=== PATIENT | male | born 1945 | race Caucasian/White ===

== ENCOUNTER 2019-07-15 03:11 | Emergency (ER) | payer MEDICARE ==
[2019-07-15] MEDS ORDERED: HYDROCORTISONE 1% CREAM 28 GM TUBE TOP STA (03:44)
--- NOTE | 2019-07-15 03:48 | ED Physician Documentation ---
PD HPI GI BLEED - Stated complaint Stated Complaint: RECTAL BLEEDING - Chief complaint Chief Complaint: Abd Pain - History obtained from History obtained from: Patient - History of Present Illness Timing - onset: Enter time (1400), Yesterday Timing - duration: Days (1) Timing - details: Gradual onset, Still present Associated symptoms: BRBPR Contributing factors: Bad food (ate a half bag of cheetos) Improved by: Laying still Worsened by: Other (wiping) Similar symptoms before: Diagnosis (hemorroids) Recently seen: Not recently seen - Additional information Additional information: Previously well 74-year-old male developed acute painless rectal bleeding without urge to defecate yesterday afternoon. He felt a cold wetness in his underwear and when he investigated he found he had a lot of blood in his underwear. He estimates he may have lost altogether since the beginning of this about 3 shot glasses of blood. He has had a hemorrhoid operation previously and has had problems with his hemorrhoids since childhood. He has residual tags from a hemorrhoid operation both internal and external hemorrhoids. He relates that he ate a half a bag of Cheetos and subsequently had a very hard stool 2 days ago. He did not have bleeding at that time. He recalls today that he had a bowel movement that did not have blood on it and when he went to wipe he had blood. Review of Systems Constitutional: denies: Fever Eyes: denies: Decreased vision Ears: denies: Ear pain Nose: denies: Congestion Throat: denies: Sore throat Cardiac: denies: Chest pain / pressure, Palpitations Respiratory: denies: Dyspnea, Cough GI: reports: Other (BRBPR). denies: Abdominal Pain, Nausea, Vomiting, Bloody / black stool : denies: Dysuria Skin: denies: Rash Musculoskeletal: denies: Neck pain, Back pain, Extremity pain Neurologic: denies: Generalized weakness, Focal weakness, Numbness PD PAST MEDICAL HISTORY - Present Medications Home Medications: Ambulatory Orders Medication Instructions Recorded Confirmed No Known Home Medications 07/15/19 07/15/19 - Allergies Allergies/Adverse Reactions: Allergies Allergy/AdvReac Type Severity Reaction Status Date / Time No Known Drug Allergies Allergy Verified 07/15/19 03:20 PD ED PE NORMAL - Vitals Vital signs reviewed: Yes (hypertensive mild ) - General General: Alert and oriented X 3, No acute distress, Well developed/nourished - HEENT HEENT: Atraumatic, PERRL, EOMI - Respiratory Respiratory: No respiratory distress - Rectal Rectal: Other (There are external hemmoroidal tags and there are 2 that have abrasion with recent bleeding. The internal hemorrhoids are engorged, non tender and ther is blood on the glove as well. ) - Derm Derm: Normal color, Warm and dry, No rash - Extremities Extremities: No deformity, No edema, No calf tenderness / cord - Neuro Neuro: Alert and oriented X 3, safety and skill based pay manager 2-12 intact, No motor deficit, No sensory deficit, Normal speech Eye Opening: Spontaneous Motor: Obeys Commands Verbal: Oriented GCS Score: 15 - Psych Psych: Normal mood, Normal affect Results - Vitals Vitals: Vital Signs - 24 hr 07/15/19 03:15 Temperature 36.4 C L Heart Rate 84 Respiratory 16 Rate Blood Pressure 144/78 H O2 Saturation 100 Oxygen O2 Source Room air PD MEDICAL DECISION MAKING - ED course Complexity details: reviewed old records, considered differential, d/w patient ED course: 74-year-old male with a history of hemorrhoids has painless rectal bleeding today and on examination it seems obvious that the source of bleeding is the hemorrhoids. He has abrasion to the external hemorrhoidal tags and engorged internal hemorrhoids with blood on the glove. He is administered hydrocortisone cream 1%. I discussed with the patient maintenance of hemorrhoid with reduction with cortisone. Departure - Departure Disposition: 01 Home, Self Care Clinical Impression: Bleeding hemorrhoids Condition: Stable Instructions: Hydrocortisone suppositories, ED Hemorrhoids Follow-Up: Jose David Nobles MD [Primary Care Provider] -
[2019-07-15 04:13] VITALS: BP 129/66
== END 2019-07-15 04:15 | disposition home or self-care (01) ==
LOC: ED 03:11
DX: K64.8 Other hemorrhoids (principal); K64.4 Residual hemorrhoidal skin tags
CPT/HCPCS: 99282; 99283; A9270

== ENCOUNTER 2021-04-21 16:33 | Emergency (ER) | payer MEDICARE ==
[2021-04-21 16:56] LABS: BASOPHILS % (AUTO) 0.2 %; EOSINOPHILS % (AUTO) 0.7 %; HCT - HEMATOCRIT 41.8 % (42.0-52.0); HGB - HEMOGLOBIN 14.9 g/dL (14.0-18.0); LYMPHOCYTES # (AUTO) 0.6 10^3/uL (1.5-3.5); LYMPHOCYTES % (AUTO) 11.4 %; MEAN CORPUSCULAR HEMOGLOBIN 34.8 pg (27.0-31.0); MEAN CORPUSCULAR HGB CONC 35.6 g/dL (32.0-36.0); MEAN CORPUSCULAR VOLUME 97.7 fL (80.0-94.0); MEAN PLATELET VOLUME 9.5 fL (7.4-11.4); MONOCYTES # (AUTO) 0.3 10^3/uL (0.0-1.0); MONOCYTES % (AUTO) 6.2 %; NEUTROPHILS # (AUTO) 4.4 10^3/uL (1.5-6.6); NEUTROPHILS % (AUTO) 81.3 %; PLT - PLATELET COUNT 185 10^3/uL (130-450); RED BLOOD COUNT 4.28 10^6/uL (4.70-6.10); RED CELL DISTRIBUTION WIDTH 12.6 % (12.0-15.0); WHITE BLOOD COUNT 5.5 x10^3/uL (4.8-10.8)
[2021-04-21 17:10] LABS: ALBUMIN 3.8 g/dL (3.2-5.5); BILIRUBIN,TOTAL 1.1 mg/dL (0.2-1.0); CALCIUM 9.1 mg/dL (8.5-10.3); POTASSIUM 3.5 mmol/L (3.5-5.0); TOTAL PROTEIN 7.6 g/dL (6.7-8.2)
--- OUTSIDE RECORDS SUMMARY | 2021-04-21 17:12 | EXTERNAL MEDICAL SUMMARY RPT | Continuity of Care Document ---
:1945 Demographics Phone Unavailable Preferred Language Unknown Marital Status Unknown Spiritism Affiliation Unknown Race Unknown Ethnic Group Unknown Author Organization [facility] Address [address] [phone] Phone Allergies Encounters Medications Problems Results
[2021-04-21 17:36] LABS: BILIRUBIN,URINE NEGATIVE (NEGATIVE); GLUCOSE, URINE (UA) NEGATIVE (NEGATIVE); KETONES,URINE (UA) NEGATIVE (NEGATIVE); LEUKOCYTE ESTERASE, URINE NEGATIVE (NEGATIVE); NITRITE,URINE NEGATIVE (NEGATIVE); OCCULT BLOOD,URINE TRACE-INTA (NEGATIVE); PH,URINE 5.5 PH (5.0-7.5); PROTEIN,URINE NEGATIVE (NEGATIVE); UROBILINOGEN,URINE 0.2 (NORMAL) E.U./dL (NORMAL)
[2021-04-21 17:37] LABS: CLARITY,URINE CLEAR (CLEAR)
[2021-04-21] MEDS ORDERED: IOVERSOL 320 100 ML VIAL IVP ONE ×2 (18:42→21:47)
--- NOTE | 2021-04-21 18:49 | ED Physician Documentation ---
History of Present Illness - Stated complaint Stated Complaint: ABD PX - Chief complaint Chief Complaint: Abd Pain - Additonal information Additional information: 75-year-old male presents the emergency department for evaluation of about 30 p ound weight loss unintentionally over the last year as well as reported hematochezia intermittently for the last few weeks. He is also been having left-sided belly pain. No fevers no vomiting. Last colonoscopy was about 40 years ago but was unremarkable. This gentleman denies any syncope, chest pain or shortness of air. Denies any history of hypertension or diabetes and takes no prescribed medications. Review of Systems Constitutional: reports: Fatigue, Weight Loss. denies: Fever, Chills Eyes: reports: Reviewed and negative Ears: reports: Reviewed and negative Nose: reports: Reviewed and negative Throat: reports: Reviewed and negative Cardiac: reports: Reviewed and negative Respiratory: reports: Reviewed and negative GI: reports: Abdominal Pain, Bloody / black stool : reports: Reviewed and negative Skin: reports: Reviewed and negative Musculoskeletal: reports: Reviewed and negative PD PAST MEDICAL HISTORY - Past Medical History Past Medical History: Yes Cardiovascular: High cholesterol Respiratory: None Neuro: None Endocrine/Autoimmune: None GI: Hemorrhoids : Benign prostate hypertrophy HEENT: None Psych: None Musculoskeletal: Osteoarthritis Derm: None - Past Surgical History Past Surgical History: Yes General: Cholecystectomy, Other - Present Medications Home Medications: Ambulatory Orders Medication Instructions Recorded Confirmed No Known Home Medications 07/15/19 07/15/19 - Allergies Allergies/Adverse Reactions: Allergies Allergy/AdvReac Type Severity Reaction Status Date / Time No Known Drug Allergies Allergy Verified 04/21/21 16:44 - Social History Does the pt smoke?: No Smoking Status: Never smoker Does the pt drink ETOH?: No Does the pt have substance abuse?: No - Immunizations Immunizations are current?: No Immunizations: TDAP >10years/unknown - POLST Patient has POLST: No PD ED PE EXPANDED - General General: Alert, No acute distress, Well developed/nourished - Cardiac Cardiac: Regular Rate, Regular Rhythm, Radial strong equal, Pedal strong equal, Cap refill < 2 sec - Respiratory Respiratory: Clear to ausultation moise. No: Distress, Labored - Abdomen Abdomen: Normal Bowel sounds, Tender to palpation, LUQ, LLQ (Left upper quadrant left lower quadrant tenderness to palpation without guarding or rebound.) - Rectal Rectal: Normal Tone, Other (Digital rectal exam reveals brown stool in the vault. No melena or hematochezia). No: Fissure - Derm Derm: Normal color, Warm and dry. No: Rash, Petecchiae, Purpura - Extremities Extremities: Normal. No: Deformity, Tenderness Results - Vitals Vitals: Vital Signs - 24 hr 04/21/21 04/21/21 04/21/21 16:35 16:44 19:19 Temperature 36.9 C 36.9 C 36.7 C Heart Rate 92 92 72 Respiratory 18 18 16 Rate Blood Pressure 127/73 127/73 125/73 O2 Saturation 96 96 97 Oxygen O2 Source Room air - Labs Labs: Laboratory Tests 04/21/21 04/21/21 04/21/21 16:52 16:52 17:30 WBC 5.5 RBC 4.28 L Hgb 14.9 Hct 41.8 L MCV 97.7 H MCH 34.8 H MCHC 35.6 RDW 12.6 Plt Count 185 MPV 9.5 Neut # (Auto) 4.4 Lymph # (Auto) 0.6 L [place] # (Auto) 0.3 Eos # (Auto) 0.0 Baso # (Auto) 0.0 Absolute Nucleated RBC 0.00 Nucleated RBC % 0.0 Sodium 137 Potassium 3.5 Chloride 106 Carbon Dioxide 24 Anion Gap 7.0 BUN 11 Creatinine 1.0 Estimated GFR (MDRD) 73 L Glucose 123 H Calcium 9.1 Total Bilirubin 1.1 H AST 17 ALT 16 Alkaline Phosphatase 78 Total Protein 7.6 Albumin 3.8 Globulin 3.8 Albumin/Globulin Ratio 1.0 Lipase 22 Urine Color YELLOW Urine Clarity CLEAR Urine pH 5.5 Ur Specific [place] >=1.030 H Urine Protein NEGATIVE Urine Glucose (UA) NEGATIVE Urine Ketones NEGATIVE Urine Occult Blood TRACE-INTA Urine Nitrite NEGATIVE Urine Bilirubin NEGATIVE Urine Urobilinogen 0.2 (NORMAL) Ur Leukocyte Esterase NEGATIVE Ur Microscopic Review NOT INDICATED Urine Culture Comments NOT INDICATED - Rads (name of study) CT abd/pelevis Radiology: Final report received (Lobulated segmental wall thickening in the rectum suspicious for intramural mass. No evidence of associated bowel obstruction. No definite evidence of metastatic disease in abdomen or pelvis.) PD MEDICAL DECISION MAKING - ED course Complexity details: reviewed results, re-evaluated patient, d/w patient, d/w family ED course: 75-year-old male presents emergency department for evaluation of 25 pound weight loss over the last year as well as reported hematochezia. He also reported left-sided abdominal tenderness. Screening labs showed no significant worrisome lab abnormalities. I did do a digital rectal exam and found brown stool in the colon. He was not anemic. A CT of the abdomen is concerning for a rectal carcinoma. These findings were discussed with the patient. He has follow-up scheduled with Dr. Jose David Nobles in 1 week time. He was advised that he needs an emergent colonoscopy. Emergent return precautions were discussed for worsening symptoms hematochezia or inability to have bowel movements. Departure - Departure Disposition: 01 Home, Self Care Clinical Impression: Mass in rectum Condition: Stable Record reviewed to determine appropriate education?: Yes Follow-Up: Jose David Nobles MD [Provider Admit Priv/Credential] - Comments: Maikel you are seen in the emergency department today for reported weight loss as well as bloody stools. Your screening labs do not show any worrisome abnormalities. When I did do your rectal exam I only found brown stool in your rectal vault. Unfortunately the CT of the abdomen does suggest that you may have a mass in your rectum. This could be rectal carcinoma. When you see Dr. Nobles in 1 week it is important that you request an emergent referral for colonoscopy. Please return to the emergency department if you are unable to have bowel movements, you have worsening rectal bleeding, develop any fevers or uncontrolled abdominal pain or vomiting.
--- NOTE | 2021-04-21 21:06 | CT Report ---
PROCEDURE: Abdomen/Pelvis W INDICATIONS: abdominal pain, melena, weight loss CONTRAST: IV CONTRAST: Optiray 320 ml: 100 PO CONTRAST: *NO PO CONTRAST TECHNIQUE: After the administration of intravenous contrast, 5 mm thick sections acquired from the diaphragms to the symphysis. 5 mm thick coronal and sagittal reformats were acquired. For radiation dose reducti on, the following was used: automated exposure control, adjustment of mA and/or kV according to alistair ent size. COMPARISON: None. FINDINGS: Image quality: Excellent. ABDOMEN: Lung bases: There is mild dependent atelectasis in the lung bases. Heart size is normal. There is a s mall hiatal hernia. Solid organs: Evaluation of the liver demonstrates no focal hepatic lesions. Gallbladder is surgical ly absent. Biliary system is non dilated. The spleen is normal in size. Pancreas enhances normally w ithout peripancreatic fat stranding or fluid collections. No adrenal nodules. Kidneys demonstrate n o hydronephrosis. There is a lobulated left renal cysts. Peritoneum and bowel: Small bowel loops demonstrate normal wall thickness and caliber. The appendix i s normal in appearance. There is lobulated segmental wall thickening and enhancement in the rectum wi th pericolonic fat stranding. Findings are suspicious for an intramural mass. No evidence of associat ed bowel obstruction. Nodes and vessels: No retroperitoneal or mesenteric adenopathy by size criteria. Aorta and inferior vena cava are normal in size. Miscellaneous: No ventral hernias. PELVIS: Genitourinary: Bladder wall thickness is normal. Miscellaneous: No inguinal hernias or adenopathy. Bones: No suspicious bony lesions. No vertebral body compression fractures. IMPRESSION: 1. Lobulated segmental wall thickening in the rectum suspicious for an intramural mass. Although the differential includes a colitis, rectal carcinoma cannot be excluded and correlation is recommended w ith colonoscopy. No evidence of associated bowel obstruction. 2. No definite evidence of metastatic disease in abdomen or pelvis. Reviewed by: Jose Slade MD on 04/21/2021 9:05 PM PDT Approved by: Jose Slade MD on 04/21/2021 9:05 PM PDT Station ID: [id number]
[2021-04-21 21:31] VITALS: BP 128/78
== END 2021-04-21 21:38 | disposition home or self-care (01) ==
LOC: ED 16:33
DX: K62.89 Other specified diseases of anus and rectum (principal)
CPT/HCPCS: 36415; 74177; 80053; 81003; 83690; 85025; 99284; Q9967; 81001; 87086

== ENCOUNTER 2021-06-17 10:27 | Day surgery (SDC) | payer MEDICARE ==
[2021-06-17] MEDS ORDERED: LACTATED RINGERS 1,000 ML IV ONE (10:59)
[2021-06-17] MEDS ORDERED: fentaNYL 250 MCG/5 ML VIAL ONE (11:06)
[2021-06-17] MEDS ORDERED: MIDAZOLAM 2 MG/2 ML VIAL ONE ×2 (11:06→11:17)
[2021-06-17] MEDS ORDERED: LACTATED RINGERS 550 ML IV ONE ×2 (11:45)
[2021-06-17 12:49] VITALS: BP 125/79
== END 2021-06-17 10:28 | disposition home or self-care (01) ==
LOC: SDS 10:27
PROVIDERS: ATTEND Surgery
PROC: 0DBN8ZX Excision of Sigmoid Colon, Via Natural or Artificial Opening Endoscopic, Diagnostic (ICD-10-PCS; principal; 2021-06-17 11:30)
DX: C19 Malignant neoplasm of rectosigmoid junction (principal); K64.8 Other hemorrhoids
CPT/HCPCS: 45380; 45381; J3010; J7120

== ENCOUNTER 2021-06-30 14:35 | Outpatient (CLI) | payer MEDICARE ==
[2021-06-30 20:02] LABS: BASOPHILS % (AUTO) 0.5 %; EOSINOPHILS # (AUTO) 0.1 10^3/uL (0.0-0.7); EOSINOPHILS % (AUTO) 3.4 %; HCT - HEMATOCRIT 41.9 % (42.0-52.0); HGB - HEMOGLOBIN 13.8 g/dL (14.0-18.0); LYMPHOCYTES # (AUTO) 0.6 10^3/uL (1.5-3.5); MEAN CORPUSCULAR HEMOGLOBIN 33.3 pg (27.0-31.0); MEAN CORPUSCULAR HGB CONC 32.9 g/dL (32.0-36.0); MEAN PLATELET VOLUME 10.1 fL (7.4-11.4); MONOCYTES # (AUTO) 0.5 10^3/uL (0.0-1.0); MONOCYTES % (AUTO) 11.9 %; NEUTROPHILS # (AUTO) 2.9 10^3/uL (1.5-6.6); PLT - PLATELET COUNT 203 10^3/uL (130-450); RED BLOOD COUNT 4.15 10^6/uL (4.70-6.10); RED CELL DISTRIBUTION WIDTH 12.6 % (12.0-15.0); WHITE BLOOD COUNT 4.1 x10^3/uL (4.8-10.8)
[2021-06-30 20:28] LABS: % IRON SATURATION 28 % (20-50); IRON 104 ug/dL (45-182); TOTAL IRON BINDING CAPACITY 374 ug/dL (250-450); TRANSFERRIN 267 mg/dL (180-329)
== END 2021-06-30 14:36 | disposition home or self-care (01) ==
LOC: LAB.S 14:35
PROVIDERS: ATTEND Family Medicine
DX: C18.9 Malignant neoplasm of colon, unspecified (principal); D50.9 Iron deficiency anemia, unspecified
CPT/HCPCS: 36415; 82378; 82728; 83540; 83615; 84466; 85025

== ENCOUNTER 2021-08-03 07:20 | Day surgery (SDC) | payer MEDICARE ==
[2021-08-03] MEDS ORDERED: CEFAZOLIN SODIUM IN 0.9 % NACL 2 GM/100 ML BAG IV ONE (07:30)
[2021-08-03] MEDS ORDERED: LACTATED RINGERS 1,000 ML IV ONE ×2 (07:35→10:49)
[2021-08-03] MEDS ORDERED: BUPIVACAINE 0.25% PF 30 ML VIAL ONE (09:05)
--- NOTE | 2021-08-03 09:07 | ANESTHESIA ---
Pre-Anesthesia VS, & Labs - Diagnosis anorectal cancer - Procedure Portacath placement Vital Signs: Temp Pulse Resp BP Pulse Ox 36.6 C 76 18 133/76 H 100 08/03/21 07:30 08/03/21 07:30 08/03/21 07:30 08/03/21 07:30 08/03/21 07:30 Height: 6 ft Weight (kg): 76 kg Body Mass Index: 22.7 BMI Classification: Healthy weight - NPO >8 hours - Lab Results Lab results reviewed: Yes Home Medications and Allergies Home Medications: Ambulatory Orders Acetaminophen [Acetaminophen Extra Strength] 1,000 mg PO Q6HR PRN 07/24/21 Glucos Sul 2Kcl/MSM/Chond/C/Mn [Glucosamine Chondroitin Cap] 1 cap PO DAILY 06/16/21 Zinc Gluconate [Zinc] 30 mg PO DAILY 06/16/21 Acetaminophen [Acetaminophen Extra Strength] 1,000 mg PO Q6HR PRN 07/24/21 Iron,Carbonyl/Ascorbic Acid [Fe C Tablet] 1 tab PO DAILY 07/28/21 Allergies/Adverse Reactions: Allergies Allergy/AdvReac Type Severity Reaction Status Date / Time No Known Drug Allergies Allergy Verified 08/03/21 07:55 Anes History & Medical History - Anesthetic History Anesthesia Complications: reports: No previous complications Family history of Anesthesia Complications: Denies Family history of Malignant Hyperthermia: Denies - Medical History Cardiovascular: reports: None Pulmonary: reports: None Gastrointestinal: reports: GERD, GI bleed, Ulcers Urinary: reports: None Neuro: reports: None Musculoskeletal: reports: Osteoarthritis Endocrine/Autoimmune: reports: None Blood Disorders: reports: None Skin: reports: None Smoking Status: Never smoker - Surgical History General: reports: Cholecystectomy, Colonoscopy, Other Exam General: Alert, Oriented x3, Cooperative, No acute distress Dental: WNL Mouth Openin Fingerbreadth Neck Mobility: Normal Mallampati classification: II Respiratory: Lungs clear, Normal breath sounds, No respiratory distress, No accessory muscle use Cardiovascular: Regular rate, Normal S1, Normal S2, No murmurs Plan Anesthesia Type: General, MAC, Total IV Consent for Procedure(s) Verified and Reviewed: Yes Code Status: Attempt Resuscitation ASA classification: 2-Mild systemic disease Is this case an emergency?: No
[2021-08-03] MEDS ORDERED: PROPOFOL 500 MG/50 ML 500 MG/50 ML VIAL ONE (09:13)
[2021-08-03] MEDS ORDERED: BUPIVACAINE 0.25% PF 30 ML VIAL SUBQ ONE ×2 (10:18)
--- NOTE | 2021-08-03 11:22 | OPERATIVE REPORT ---
Operative Report - General Procedure Date: 08/03/21 Planned Procedure: Port-A-Cath placement Pre-Op Diagnosis: Anorectal cancer with need for central venous access for preoperative chemo Procedure Performed: Port-A-Cath placement left subclavian position. Post Op Diagnosis: Same - Procedure Note Primary Surgeon: Boone Randhawa MD Anesthesia Provider: Moses Griggs CRNA Anesthesia Technique: Local (20 mL of half percent Marcaine), MAC IV Fluids (mL): 700 Estimated Blood Loss (mL): 1 Drain/Tube Type: Other (None.) Indications: As above. Findings: First chest x-ray showed the wire to be in good position in the vena cava and the second chest x-ray showed the catheter in good position in the right atrium/vena cava without pneumothorax Complications: None. - Other Other Information/Narrative: After verbal and written informed consent was obtained detailing the operation, the alternatives the operation including no operation, risks of infection, bleeding requiring transfusion with its risks, nerve injury, and and after I met with the patient confirming the surgery and the site of surgery, the patient was brought to the operative suite and placed supine on the operating table. Great care was taken to avoid pressure points to prevent pressure necrosis or nerve injury. Monitoring devices were applied along with TEDs and pneumatic compression stockings (to prevent DVT). The patient received preoperative antibiotics for surgical prophylaxis. Moses Griggs CRNA sedated and anesthetized the patient for the entire procedure. The patient was prepped and draped in the usual sterile manner. A "time in" then confirmed that the patient was identified with 3 identifiers (name, date, and medical record number), the history and physical was updated and in the chart, the signed consent confirming the procedure was in the chart, the patient was in the correct position, the aforementioned prophylactic measures were in place or given, we had the correct personnel and equipment to complete the procedure and that anesthesia and the surgical team were given an opportunity to express any concerns. With the agreement of everyone in the room we proceeded with the operation. After anesthetizing the left subclavian area with half percent Marcaine, the finder needle was inserted into the left subclavian vein and with good blood return the syringe was removed and a wire placed. The wire went to 30 cm with some cardiac irritability confirming placement down towards the heart. The needle was removed and the needle insertion site widened with the aid of a scalpel and a Unique. At this point in time I ordered a chest x-ray as the blood return appeared a little bit too bright. The chest x-ray revealed that the wire was in good position in the vena cava without pneumothorax. The port site was selected further down and slightly laterally on the chest wall and this was anesthetized again using half percent Marcaine. A transverse incision was made and dissection was carried out down to the fascia using Bovie electrocautery. Hemostasis was obtained using Bovie electrocautery. The pouch was then created primarily using blunt dissection and again using Bovie electrocautery for hemostasis. The catheter was obtained and attached to the passer. The passer was then used to pass the catheter from the needle insertion site to the port site. The catheter was then measured against the anterior chest wall and cut at 24 cm which allowed for the tip to be 2 cm below the manubrial-sternal junction. The catheter was then secured to the port using the supplied hub. The port and catheter were then flushed using heparinized saline. The port was put in position in the pouch and secured to the fascia using a 3-0 Prolene suture. Great care was taken to ensure that the catheter was not kinked. The dilator was placed over the wire taking great care to ensure that the wire was always visible. The dilator was removed and wiped down using a saline soaked gauze. The dilator and sheath were then placed over the wire again taking great care to ensure that the wire was always visible. The dilator and wire were then removed leaving the sheath in position. The catheter was then placed into the sheath using DeBakey pickups and while holding the catheter in place the sheath was torn away leaving the catheter in position. A Joseph needle was then used to access the port and there was excellent blood return and easy flush. A chest x- ray was then obtained that showed the catheter to be in good position in the supracardiac vena cava without pneumothorax. The port site subcutaneous tissues were approximated using an interrupted 3-0 Vicryl suture. The skin incisions were approximated with 4-0 Monocryl in a subcuticular fashion. The skin was cleaned of its prep and Dermabond was applied. At this point a timeout was performed that confirmed that all counts were correct x2, the procedure that was performed, the blood loss, the IV fluids administered, the patient's condition, and any concerns of the operating team had. Having tolerated the procedure well, the patient was taken recovery room in good and stable condition. The plan is for outpatient discharge when the patient is adequately recovered. This document was created in part using voice recognition technology. Because of the inherent limitations of the system, occasional same sounding word substitutions and grammatical errors do occur and persist despite proofreading. Please read this document for content.
[2021-08-03] MEDS ORDERED: HYDROcod/ACETAM 5/325 MG TABLET PO PRN (11:24)
[2021-08-03] MEDS ORDERED: HYDROmorphone 0.5 MG/0.5 ML SYRINGE IVP PRN (11:24)
[2021-08-03] MEDS ORDERED: ONDANSETRON 4 MG/2 ML VIAL IVP PRN (11:24)
[2021-08-03 11:56] VITALS: BP 132/85
--- NOTE | 2021-08-03 11:59 | XRAY Report ---
PROCEDURE: Chest for Line Placement INDICATIONS: line placement TECHNIQUE: One view of the chest was acquired. COMPARISON: CT chest 08/29/2014 FINDINGS: Surgical changes and devices: Left Port-A-Cath is present distal tip projecting over the distal SVC/r ight atrial junction. Cholecystectomy clips are present. Lungs and pleura: There is an overall appearance of increased pulmonary vascularity. Mediastinum: Mediastinal contours appear normal. Heart size is normal. Bones and chest wall: No suspicious bony lesions. Overlying soft tissues appear unremarkable. IMPRESSION: Port-A-Cath placement as above. Reviewed by: Carissa Rockwell MD on 08/03/2021 11:58 AM PDT Approved by: Carissa Rockwell MD on 08/03/2021 11:58 AM PDT Station ID: [id number]
--- NOTE | 2021-08-03 12:18 | ANESTHESIA POST OP EVALUATION ---
Anesthesia Post Eval - Post Anesthesia Eval Vitals: Last Vital Signs Temp 36.4 C L 08/03/21 11:25 Pulse 66 08/03/21 11:25 Resp 14 08/03/21 11:25 BP 132/85 H 08/03/21 11:25 Pulse Ox 98 08/03/21 11:25 CV Function Including HR & BP: Stable Pain Control: Satisfactory Nausea & Vomiting: Negative Mental Status: Baseline Respiratory Status: Airway Patent Hydration Status: Satisfactory Anesthesia Complications: None
== END 2021-08-03 07:21 | disposition home or self-care (01) ==
LOC: SDS 07:20
PROVIDERS: ATTEND Surgery
DX: C21.8 Malignant neoplasm of overlapping sites of rectum, anus and anal canal (principal)
CPT/HCPCS: 36561; 71045; C1788; J0690; J7120

== ENCOUNTER 2021-08-24 13:40 | Outpatient (CLI) | payer MEDICARE ==
[2021-08-24] MEDS ORDERED: IOVERSOL 320 100 ML VIAL IVP ONE ×2 (14:30→15:10)
--- NOTE | 2021-08-25 09:09 | CT Report ---
PROCEDURE: CHEST W INDICATIONS: RECTAL CA CONTRAST: IV CONTRAST: Optiray 320 ml: 100 PO CONTRAST: *NO PO CONTRAST TECHNIQUE: After the administration of intravenous contrast, 1 mm axial images were acquired from the pulmonary apices through the posterior costophrenic angles. Axial 5 mm soft tissue kernel reconstructions were performed as well as 8 mm axial MIP and coronal and sagittal 5 mm reformations. For radiation dose reduction, the following was used: automated exposure control, adjustment of mA and/or kV according to patient size. COMPARISON: August 29, 2014 FINDINGS: CT CHEST: Thyroid: Homogeneous. Vasculature: The thoracic aorta and arch vasculature have a normal contrasted appearance and are norm al size and contour. No evidence for dissection. Heart: No cardiomegaly or significant pericardial effusion. Mediastinum: No pathologically enlarged mediastinal lymph nodes are seen. No focal mass lesions are i dentified. Lung/pleura: Hyperinflated appearance of the lungs. 5.8 mm noncalcified nodule in the left upper lobe (4-79). An additional noncalcified pulmonary nodule is seen in the left lower lobe, measuring 4.8 mm (4-240). No consolidation, pleural effusion, or pneumothorax. Tracheobronchial tree: Patent. Mild bronchiectasis. Upper abdomen: No acute abnormality. A 5.1 x 3.2 cm hypoattenuating lesion is seen in the left kidney , compatible phthisis. Bones: No significant osseous abnormalities are noted. Chest wall: The chest wall and axilla are within normal limits. IMPRESSION: 1.Interval development of 2 noncalcified pulmonary nodules, measuring up to 5.8 mm. Consider short-te rm interval follow-up as clinically warranted. Reviewed by: Armin Post MD on 08/24/2021 4:33 PM PDT Approved by: Armin Post MD on 08/24/2021 4:33 PM PDT Station ID: [id number]
== END 2021-08-24 13:41 | disposition home or self-care (01) ==
LOC: DI 13:40
PROVIDERS: ATTEND Internal Medicine Hematology & Oncology
DX: R91.8 Other nonspecific abnormal finding of lung field (principal); C20 Malignant neoplasm of rectum
CPT/HCPCS: 71260; Q9967

== ENCOUNTER 2021-08-25 07:00 | Outpatient (CLI) | payer MEDICARE | END 2021-08-25 23:59 | disposition home or self-care (01) | LOC: LAB 07:00 | PROVIDERS: ATTEND Family Medicine | DX: C18.9 Malignant neoplasm of colon, unspecified (principal) | CPT/HCPCS: 36415; 83615 ==

== ENCOUNTER 2021-09-16 10:59 | Outpatient (CLI) | payer MEDICARE | END 2021-09-16 11:00 | disposition critical access hospital (66) | LOC: EMS 10:59 | DX: R53.1 Weakness (principal); R53.83 Other fatigue; R42 Dizziness and giddiness | CPT/HCPCS: A0425; A0427 ==

== ENCOUNTER 2021-09-16 11:26 | Emergency (ER) | payer MEDICARE ==
[2021-09-16] MEDS ORDERED: HYDROmorphone 1 MG/ML CARPUJECT IVP STA (12:08)
[2021-09-16] MEDS ORDERED: SODIUM CHLORIDE 0.9% 1,000 ML IV STA (12:08)
[2021-09-16 12:09] LABS: BASOPHILS % (AUTO) 1.1 %; EOSINOPHILS % (AUTO) 0.4 %; HCT - HEMATOCRIT 37.8 % (42.0-52.0); HGB - HEMOGLOBIN 13.4 g/dL (14.0-18.0); LYMPHOCYTES # (AUTO) 0.2 10^3/uL (1.5-3.5); LYMPHOCYTES % (AUTO) 7.6 %; MEAN CORPUSCULAR HEMOGLOBIN 33.7 pg (27.0-31.0); MEAN CORPUSCULAR HGB CONC 35.4 g/dL (32.0-36.0); MEAN PLATELET VOLUME 9.7 fL (7.4-11.4); MONOCYTES # (AUTO) 0.3 10^3/uL (0.0-1.0); MONOCYTES % (AUTO) 10.5 %; NEUTROPHILS # (AUTO) 2.2 10^3/uL (1.5-6.6); PLT - PLATELET COUNT 89 10^3/uL (130-450); RED BLOOD COUNT 3.98 10^6/uL (4.70-6.10); RED CELL DISTRIBUTION WIDTH 14.6 % (12.0-15.0); WHITE BLOOD COUNT 2.8 x10^3/uL (4.8-10.8)
--- NOTE | 2021-09-16 12:11 | ED Physician Documentation ---
History of Present Illness - Stated complaint Stated Complaint: ABD PX - Chief complaint Chief Complaint: Abd Pain - History obtained from History obtained from: Patient, EMS - History of Present Illness Timing: How many days ago (5) Pain level max: 8 Pain level now: 8 - Additonal information Additional information: Patient is a 76-year-old male who presents to the for the past 5 days since having chemotherapy for colorectal cancer. He states the chemotherapy was last Tuesday through . States this is a typical reaction for him. He states that he has had a significant amount of diarrhea as well. Nonbloody. Nothing makes it better or worse. Review of Systems Constitutional: denies: Fever, Chills Respiratory: denies: Cough GI: denies: Abdominal Pain, Nausea, Vomiting, Diarrhea Skin: denies: Rash Musculoskeletal: denies: Neck pain, Back pain Neurologic: denies: Headache PD PAST MEDICAL HISTORY - Past Medical History Cardiovascular: None Respiratory: None Neuro: None Endocrine/Autoimmune: None GI: GERD, GI bleed, Ulcers : None HEENT: Chronic vision loss Psych: None Musculoskeletal: Osteoarthritis Derm: None - Past Surgical History Past Surgical History: Yes General: Cholecystectomy, Colonoscopy, Other - Present Medications Home Medications: Ambulatory Orders Medication Instructions Recorded Confirmed Glucos Sul 2Kcl/MSM/Chond/C/Mn 1 cap PO DAILY 06/16/21 08/03/21 [Glucosamine Chondroitin Cap] Zinc Gluconate [Zinc] 30 mg PO DAILY 06/16/21 08/03/21 Lidocaine/Prilocain 2.5% Cream 5 applic TOP UD #1 gm 07/10/21 08/03/21 [Emla 2.5% Cream] Ondansetron HCl [Zofran] 4 mg PO Q6HR PRN #30 tab 07/10/21 08/03/21 Prochlorperazine Maleate 10 mg PO Q6HR PRN #30 tab 07/10/21 08/03/21 [Compazine] Acetaminophen [Acetaminophen Extra 1,000 mg PO Q6HR PRN 07/24/21 08/03/21 Strength] Iron,Carbonyl/Ascorbic Acid [Fe C 1 tab PO DAILY 07/28/21 08/03/21 Tablet] Docusate Sodium 250Mg Capsule 250 mg PO DAILY #10 cap 08/03/21 [Colace 250Mg Capsule] HYDROcod/ACETAM 5/325 [[place] 5/325] 1 each PO Q4H #5 tablet 08/03/21 Potassium Chloride [K-Dur] 40 meq PO BID 09/08/21 09/08/21 Diphenoxylate/Atropine [Lomotil] 2.5 mg PO PRN 09/15/21 - Allergies Allergies/Adverse Reactions: Allergies Allergy/AdvReac Type Severity Reaction Status Date / Time No Known Drug Allergies Allergy Verified 09/16/21 11:42 - Social History Does the pt smoke?: No Smoking Status: Never smoker Does the pt drink ETOH?: No Does the pt have substance abuse?: No - Immunizations Immunizations are current?: No Immunizations: TDAP >10years/unknown - POLST Patient has POLST: No PD ED PE NORMAL - Vitals Vital signs reviewed: Yes - General General: Alert and oriented X 3, No acute distress - HEENT HEENT: Moist mucous membranes - Neck Neck: Supple, no meningeal sign - Cardiac Cardiac: RRR - Respiratory Respiratory: No respiratory distress, Clear bilaterally - Abdomen Abdomen: Soft, Non distended, Other (Mild diffuse tenderness without peritoneal signs) - Derm Derm: Warm and dry - Extremities Extremities: No edema - Neuro Neuro: Alert and oriented X 3 Results - Vitals Vitals: Vital Signs - 24 hr 09/16/21 09/16/21 09/16/21 11:36 11:45 14:23 Temperature 37.9 C Heart Rate 91 90 98 Respiratory 15 16 18 Rate Blood Pressure 155/64 H 145/117 H 157/71 H O2 Saturation 100 100 97 Oxygen O2 Source Room air - Labs Labs: Laboratory Tests 09/16/21 09/16/21 09/16/21 12:02 12:04 12:04 WBC 2.8 L RBC 3.98 L Hgb 13.4 L Hct 37.8 L MCV 95.0 H MCH 33.7 H MCHC 35.4 RDW 14.6 Plt Count 89 L MPV 9.7 Neut # (Auto) 2.2 Lymph # (Auto) 0.2 L [place] # (Auto) 0.3 Eos # (Auto) 0.0 Baso # (Auto) 0.0 Absolute Nucleated RBC 0.00 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 Band Neuts % (Manual) Not Reportable Abnorm Lymph % (Manual) Not Reportable Nucleated RBC % 0.0 Neutrophils # (Manual) Not Reportable Lymphocytes # (Manual) Not Reportable Monocytes # (Manual) Not Reportable Eosinophils # (Manual) Not Reportable Basophils # (Manual) Not Reportable Differential Comment MANUAL=AUTO DIFF Manual Slide Review Indicated WBC Morphology 1+ TOXIC GRANULATION Platelet Estimate DECREASED (<130,000) Platelet Morphology NORMAL APPEARANCE RBC Morph Micro Appear 1+ ANISOCYTOSIS Sodium 131 L Potassium 4.0 Chloride 101 Carbon Dioxide 21 Anion Gap 9.0 BUN 14 Creatinine 0.7 Estimated GFR (MDRD) 110 Glucose 129 H Calcium 7.9 L Phosphorus 2.6 Magnesium 1.6 L Total Bilirubin 1.1 H AST 22 ALT 26 Alkaline Phosphatase 60 Total Protein 5.5 L Albumin 2.8 L Globulin 2.7 Albumin/Globulin Ratio 1.0 Lipase 19 L Urine Color Urine Clarity Urine pH Ur Specific [place] Urine Protein Urine Glucose (UA) Urine Ketones Urine Occult Blood Urine Nitrite Urine Bilirubin Urine Urobilinogen Ur Leukocyte Esterase Urine RBC Urine WBC Ur Squamous Epith Cells Urine Bacteria Urine Mucus Ur Microscopic Review Urine Culture Comments 09/16/21 13:17 WBC RBC Hgb Hct MCV MCH MCHC RDW Plt Count MPV Neut # (Auto) Lymph # (Auto) [place] # (Auto) Eos # (Auto) Baso # (Auto) Absolute Nucleated RBC Total Counted Band Neuts % (Manual) Abnorm Lymph % (Manual) Nucleated RBC % Neutrophils # (Manual) Lymphocytes # (Manual) Monocytes # (Manual) Eosinophils # (Manual) Basophils # (Manual) Differential Comment Manual Slide Review WBC Morphology Platelet Estimate Platelet Morphology RBC Morph Micro Appear Sodium Potassium Chloride Carbon Dioxide Anion Gap BUN Creatinine Estimated GFR (MDRD) Glucose Calcium Phosphorus Magnesium Total Bilirubin AST ALT Alkaline Phosphatase Total Protein Albumin Globulin Albumin/Globulin Ratio Lipase Urine Color YELLOW Urine Clarity CLEAR Urine pH 5.0 Ur Specific [place] >=1.030 H Urine Protein NEGATIVE Urine Glucose (UA) NEGATIVE Urine Ketones 40 H Urine Occult Blood SMALL H Urine Nitrite NEGATIVE Urine Bilirubin NEGATIVE Urine Urobilinogen 0.2 (NORMAL) Ur Leukocyte Esterase NEGATIVE Urine RBC 0-5 Urine WBC 0-3 Ur Squamous Epith Cells NONE SEEN Urine Bacteria Few Urine Mucus Marked Strands Ur Microscopic Review INDICATED Urine Culture Comments NOT INDICATED PD MEDICAL DECISION MAKING - ED course Complexity details: reviewed results, re-evaluated patient, considered differential, d/w patient ED course: Patient with GI side effects from his colorectal chemotherapy. Feels much better after 2 L of IV fluids. No significant lab abnormalities. Tolerating p.o. without difficulty. Pain and nausea resolved. Tolerating p.o. without difficulty. Patient declines pain or nausea medications for home. He request to go home at this time. Abdomen is soft, nontender nondistended on serial exam. Patient counseled regarding signs and symptoms for which I believe and urgent re-evaluation would be necessary. Patient with good understanding of and agreement to plan and is comfortable going home at this time This document was made in part using voice recognition software. While efforts are made to proofread this document, sound alike and grammatical errors may occur. Departure - Departure Disposition: Home, Self Care Clinical Impression: Chemotherapy-induced diarrhea Condition: Good Instructions: Oncology Control Diarrhea Follow-Up: Hoang Benavides MD [Physician No Access] - Within 1 week Comments: Drink plenty of fluids at home. Return if you worsen. Please follow-up with Dr. Benavides for further care. Discharge Date/Time: 09/16/21 14:25
[2021-09-16 12:12] LABS: SLIDE REVIEW? Indicated
[2021-09-16 12:23] LABS: ALBUMIN 2.8 g/dL (3.2-5.5); BILIRUBIN,TOTAL 1.1 mg/dL (0.2-1.0); CALCIUM 7.9 mg/dL (8.5-10.3); CREATININE 0.7 mg/dL (0.6-1.2); TOTAL PROTEIN 5.5 g/dL (6.7-8.2)
[2021-09-16 12:24] LABS: MAGNESIUM 1.6 mg/dL (1.7-2.8); PHOSPHORUS 2.6 mg/dL (2.5-4.6)
[2021-09-16 12:52] LABS: PLATELET ESTIMATE, MANUAL DECREASED (<130,000) (NORMAL); PLATELET MORPHOLOGY NORMAL APPEARANCE (NORMAL); RBC MORPHOLOGY (MULTIPLE) 1+ ANISOCYTOSIS (NORMAL)
[2021-09-16 12:53] LABS: DIFFERENTIAL COMMENT MANUAL=AUTO DIFF
[2021-09-16 13:39] LABS: BILIRUBIN,URINE NEGATIVE (NEGATIVE); GLUCOSE, URINE (UA) NEGATIVE (NEGATIVE); KETONES,URINE (UA) 40 mg/dL (NEGATIVE); LEUKOCYTE ESTERASE, URINE NEGATIVE (NEGATIVE); NITRITE,URINE NEGATIVE (NEGATIVE); OCCULT BLOOD,URINE SMALL (NEGATIVE); PROTEIN,URINE NEGATIVE (NEGATIVE); UROBILINOGEN,URINE 0.2 (NORMAL) E.U./dL (NORMAL)
[2021-09-16 13:43] LABS: CLARITY,URINE CLEAR (CLEAR)
[2021-09-16 13:55] LABS: BACTERIA,URINE Few /HPF (None Seen); MUCUS,URINE Marked Strands; RBC,URINE 0-5 /HPF (0-5); SQUAMOUS EPITHELIAL CELL,UR NONE SEEN (<= Few); WBC,URINE 0-3 /HPF (0-3)
[2021-09-16 14:24] VITALS: BP 157/71
== END 2021-09-16 14:25 | disposition home or self-care (01) ==
LOC: EDUNIT# → ED 11:26
DX: K52.1 Toxic gastroenteritis and colitis (principal); T45.1X5A Adverse effect of antineoplastic and immunosuppressive drugs, initial encounter
CPT/HCPCS: 36415; 80053; 81001; 83690; 83735; 84100; 85025; 96374; 99283; J1170; 81003; 87086

== ENCOUNTER 2021-09-17 11:58 | Outpatient (CLI) | payer MEDICARE | END 2021-09-17 11:59 | disposition critical access hospital (66) | LOC: EMS 11:58 | DX: R19.7 Diarrhea, unspecified (principal); R53.1 Weakness; R53.83 Other fatigue | CPT/HCPCS: A0425; A0429 ==

== ENCOUNTER 2021-09-17 12:21 | Emergency (ER) | payer MEDICARE ==
[2021-09-17] MEDS ORDERED: ONDANSETRON 4 MG/2 ML VIAL IVP STA (12:39)
[2021-09-17] MEDS ORDERED: SODIUM CHLORIDE 0.9% 1,000 ML IV STA ×2 (12:39→14:11)
--- NOTE | 2021-09-17 12:42 | ED Physician Documentation ---
History of Present Illness - Stated complaint Stated Complaint: N/V/D - Chief complaint Chief Complaint: Abd Pain - Additonal information Additional information: 76-year-old male presents the emergency department for evaluation of worsening d iarrhea as well as generalized weakness and fatigue. He does have a known history of colon cancer and recently completed a cycle of chemotherapy. He states that do to the diarrhea he is feeling so fatigued he can barely walk from his bed to the bathroom. Anytime he eats or drinks anything he immediately has to use the toilet. He is persistently nauseated but is not actively vomiting. Seen in this ER yesterday for similar improved with 2 L of IV fluid. Patient reports to provider he is not getting much help at home with from his family members. Review of Systems Constitutional: denies: Fever, Chills Eyes: reports: Reviewed and negative Nose: reports: Reviewed and negative Throat: reports: Reviewed and negative Cardiac: reports: Reviewed and negative Respiratory: reports: Reviewed and negative GI: reports: Abdominal Pain, Nausea, Diarrhea. denies: Vomiting, Bloody / black stool : reports: Reviewed and negative Skin: reports: Reviewed and negative Musculoskeletal: reports: Reviewed and negative PD PAST MEDICAL HISTORY - Past Medical History Cardiovascular: None Respiratory: None Neuro: None Endocrine/Autoimmune: None GI: GERD, GI bleed, Ulcers : None HEENT: Chronic vision loss Psych: None Musculoskeletal: Osteoarthritis Derm: None - Past Surgical History Past Surgical History: Yes General: Cholecystectomy, Colonoscopy, Other - Present Medications Home Medications: Ambulatory Orders Medication Instructions Recorded Confirmed Glucos Sul 2Kcl/MSM/Chond/C/Mn 1 cap PO DAILY 06/16/21 08/03/21 [Glucosamine Chondroitin Cap] Zinc Gluconate [Zinc] 30 mg PO DAILY 06/16/21 08/03/21 Lidocaine/Prilocain 2.5% Cream 5 applic TOP UD #1 gm 07/10/21 08/03/21 [Emla 2.5% Cream] Ondansetron HCl [Zofran] 4 mg PO Q6HR PRN #30 tab 07/10/21 08/03/21 Prochlorperazine Maleate 10 mg PO Q6HR PRN #30 tab 07/10/21 08/03/21 [Compazine] Acetaminophen [Acetaminophen Extra 1,000 mg PO Q6HR PRN 07/24/21 08/03/21 Strength] Iron,Carbonyl/Ascorbic Acid [Fe C 1 tab PO DAILY 07/28/21 08/03/21 Tablet] Docusate Sodium 250Mg Capsule 250 mg PO DAILY #10 cap 08/03/21 [Colace 250Mg Capsule] HYDROcod/ACETAM 5/325 [[place] 5/325] 1 each PO Q4H #5 tablet 08/03/21 Potassium Chloride [K-Dur] 40 meq PO BID 09/08/21 09/08/21 Diphenoxylate/Atropine [Lomotil] 2.5 mg PO PRN 09/15/21 - Allergies Allergies/Adverse Reactions: Allergies Allergy/AdvReac Type Severity Reaction Status Date / Time No Known Drug Allergies Allergy Verified 09/16/21 11:42 - Social History Does the pt smoke?: No Smoking Status: Never smoker Does the pt drink ETOH?: No Does the pt have substance abuse?: No - Immunizations Immunizations are current?: No Immunizations: TDAP >10years/unknown - POLST Patient has POLST: No PD ED PE EXPANDED - General General: Alert - Neck Neck: Supple w/out meningeal sx. No: Adenopathy - Cardiac Cardiac: Regular Rate, Radial strong equal, Cap refill < 2 sec - Respiratory Respiratory: Clear to ausultation moise. No: Distress, Labored - Abdomen Abdomen: Normal Bowel sounds, Generalized/diffuse (Diffuse nonfocal nonperitoneal tenderness) - Back Back: Normal exam - Derm Derm: Normal color, Warm and dry. No: Rash - Extremities Extremities: Normal. No: Deformity, Tenderness - Neuro Neuro: Alert and Oriented X 3, CNII-XII intact - GCS Eye Opening: Spontaneous Motor: Obeys Commands Verbal: Oriented Total: 15 Results - Vitals Vitals: Vital Signs - 24 hr 09/17/21 09/17/21 09/17/21 12:30 14:39 16:24 Temperature 36.6 C Heart Rate 96 67 102 H Respiratory 16 18 16 Rate Blood Pressure 140/73 H 129/68 149/84 H O2 Saturation 100 100 Oxygen O2 Source Room air - Labs Labs: Laboratory Tests 09/17/21 09/17/21 13:15 13:15 WBC 1.5 L* RBC 3.99 L Hgb 13.4 L Hct 37.5 L MCV 94.0 MCH 33.6 H MCHC 35.7 RDW 14.9 Plt Count 86 L MPV 9.7 Neut # (Auto) Not Reportable Lymph # (Auto) Not Reportable [place] # (Auto) Not Reportable Eos # (Auto) Not Reportable Baso # (Auto) Not Reportable Absolute Nucleated RBC Not Reportable Total Counted 100 Band Neuts % (Manual) 10 Reactive Lymphs % (Man) 6 Abnorm Lymph % (Manual) 0 Metamyelocytes % 2 H Nucleated RBC % Not Reportable Neutrophils # (Manual) 0.5 L* Lymphocytes # (Manual) 0.3 L Monocytes # (Manual) 0.7 Eosinophils # (Manual) 0.0 Basophils # (Manual) 0.0 Differential Comment MANUAL DIFFERENTIAL Manual Slide Review Indicated Sodium 133 L Potassium 2.9 L Chloride 103 Carbon Dioxide 20 L Anion Gap 10.0 BUN 13 Creatinine 0.8 Estimated GFR (MDRD) 94 Glucose 118 H Calcium 7.8 L Total Bilirubin 1.3 H AST 25 ALT 25 Alkaline Phosphatase 55 Total Protein 5.2 L Albumin 2.6 L Globulin 2.6 Albumin/Globulin Ratio 1.0 Lipase 17 L PD MEDICAL DECISION MAKING - ED course Complexity details: reviewed results, re-evaluated patient, d/w patient, d/w campaign consultant (Hamida) ED course: 76-year-old male return to the emergency department for evaluation of fatigue and diarrhea. Seen yesterday for similar. He does have colorectal cancer and recently completed a course of chemotherapy. Though he is nauseated he is not vomiting. However he does have fairly voluminous diarrhea. It is not bloody. Screening labs today show an expected neutropenia. However renal function is preserved and he does not appear excessively dehydrated. His potassium was low at 2.9 and was repleted here in the ER. He was also given 2 L of crystalloid. Abdominal exam was rather benign he has some generalized tenderness but was nonfocal and nonperitoneal. I did discuss this case with Dr. Mei to our hospitalist and offered him for observation and further evaluation of the diarrhea but patient was declined as he felt the patient was clinically stable for discharge home. He felt the diarrhea could be managed by increased PO intake with electrolyte supplements and continuation of loperamide. Pt renal function is preserved and he does nto have tachycardia or hypotension I have discussed with patient that he should continue with Gatorade and Pedialyte to maintain hydration. If he develops worsening stools, develops fevers then he will return immediately to the ER. Otherwise continue follow-up with oncologist as already scheduled. 1700: i spoke on the phone with the patient's son Jaun and discussed the case. he would like his father admitted to the hospital, but I discussed that was not possible. He is frustrated at the patients brother who is living with the patient is not able to adequately assist at home. however Jaun will try and make arrangment sto help more at home Emergent return precautions discussed Departure - Departure Disposition: Home, Self Care Clinical Impression: Chemotherapy induced diarrhea Diarrhea Qualifiers: Diarrhea type: unspecified type Qualified Code(s): R19.7 - Diarrhea, unspecified Neutropenia Qualifiers: Neutropenia type: other Qualified Code(s): D70.8 - Other neutropenia Comments: Maikel it is important that you continue to take the loperamide at home 2-3 times a day to help with the diarrhea. You can continue to take the Compazine and Zofran that you are prescribed for nausea. Today your screening labs do not show that you are significantly dehydrated. You do have a low white blood cell count but we expect that with chemotherapy. Your potassium was a little low here in the ER and we did replace this. I do recommend that at home you take Pedialyte or mix Gatorade with water to help maintain hydration and electrolytes. Drinking broth can also be helpful. If any point you feel that your symptoms are worsening, if worsening fatigue are unable to ambulate develop fevers or chest pain then please return immediately to the ER. Continue follow-up with your oncologist as already scheduled.
[2021-09-17 13:25] LABS: BASOPHILS % (AUTO) 1.3 %; HCT - HEMATOCRIT 37.5 % (42.0-52.0); HGB - HEMOGLOBIN 13.4 g/dL (14.0-18.0); LYMPHOCYTES % (AUTO) 19.2 %; MEAN CORPUSCULAR HEMOGLOBIN 33.6 pg (27.0-31.0); MEAN CORPUSCULAR HGB CONC 35.7 g/dL (32.0-36.0); MEAN PLATELET VOLUME 9.7 fL (7.4-11.4); MONOCYTES % (AUTO) 28.5 %; NEUTROPHILS % (AUTO) 49.7 %; PLT - PLATELET COUNT 86 10^3/uL (130-450); RED BLOOD COUNT 3.99 10^6/uL (4.70-6.10); RED CELL DISTRIBUTION WIDTH 14.9 % (12.0-15.0)
[2021-09-17 13:27] LABS: SLIDE REVIEW? Indicated; WHITE BLOOD COUNT 1.5 x10^3/uL (4.8-10.8)
[2021-09-17 13:29] LABS: ABNORMAL LYMPHS % (MANUAL) 0 %
[2021-09-17 13:38] LABS: ALBUMIN 2.6 g/dL (3.2-5.5); BILIRUBIN,TOTAL 1.3 mg/dL (0.2-1.0); CALCIUM 7.8 mg/dL (8.5-10.3); CREATININE 0.8 mg/dL (0.6-1.2); POTASSIUM 2.9 mmol/L (3.5-5.0); TOTAL PROTEIN 5.2 g/dL (6.7-8.2)
[2021-09-17] MEDS ORDERED: POTASSIUM CHLORIDE 20 MEQ TABLET PO STA ×2 (13:42→14:19)
[2021-09-17] MEDS ORDERED: POTASSIUM CHLOR 10 MEQ/100 ML 10 MEQ/100 ML BAG IV STA (13:42)
[2021-09-17] MEDS ORDERED: LOPERAMIDE ORAL SOLUTION 2 MG/15 ML UDC PO STA (14:03)
[2021-09-17 14:06] LABS: BAND NEUTROPHILS % (MANUAL) 10 %; DIFFERENTIAL COMMENT MANUAL DIFFERENTIAL; LYMPHOCYTES # (MANUAL) 0.3 10^3/uL (1.5-3.5); LYMPHOCYTES % (MANUAL) 14 %; METAMYELOCYTES % (MANUAL) 2 %; MONOCYTES # (MANUAL) 0.7 10^3/uL (0.0-1.0); NEUTROPHILS # (MANUAL) 0.5 10^3/uL (1.5-6.6); REACTIVE LYMPHS % (MANUAL) 6 %
[2021-09-17] MEDS ORDERED: POTASSIUM CHLOR 10 MEQ/100 ML 10 MEQ/100 ML BAG IV ONE (14:19)
[2021-09-17] MEDS ORDERED: ACETAMINOPHEN 325 MG TABLET PO STA (16:53)
[2021-09-17] MEDS ORDERED: MORPHINE 2 MG/ML CARPUJECT IVP STA (19:16)
[2021-09-17 20:08] VITALS: BP 141/75
== END 2021-09-17 20:05 | disposition home or self-care (01) ==
LOC: EDUNIT# → ED 12:21
DX: K52.1 Toxic gastroenteritis and colitis (principal); T45.1X5A Adverse effect of antineoplastic and immunosuppressive drugs, initial encounter; C18.9 Malignant neoplasm of colon, unspecified; E87.6 Hypokalemia; D70.8 Other neutropenia; R53.83 Other fatigue
CPT/HCPCS: 36415; 80053; 83690; 85025; 96361; 96365; 96366; 96375; 99283; 99284; A9270

== ENCOUNTER 2021-09-18 20:37 | Inpatient (IN) | payer MEDICARE ==
--- NOTE | 2021-09-18 20:47 | ED Physician Documentation ---
PD HPI DYSPNEA - Stated complaint Stated Complaint: RESP DISTRESS - History obtained from History obtained from: Patient, EMS (Medics found the patient in respiratory distress with tachypnea and tachycardia and oxygenation of 69% on room air. Improved with nonrebreather facemask to 94%.) - History of Present Illness Timing - onset: How many hours ago (1-2) Timing - onset during: Rest Timing - duration: Hours Timing - details: Abrupt onset, Still present Inciting event(s): No: Out of meds, URI Improved by: O2, Sitting up Worsened by: No: Laying flat Associated symptoms: Anxiety. No: Fever, Cough, Wheezing, Chest pain / discomfort, Bilateral edema Similar symptoms before: Has not had sx before (has had nausea and diarrhea for several days post chemo, but not had dyspnea like this.) Recently seen: Clinic (Had chemo several days ago and having signficant diarrhea the past several days. Some abd pains and nausea with some vomiting. Was seen in ER yesterday and couple days prior for IV fluids and meds for these symtpoms. Improved reasonably, shared decision yesterday was discharging home pt preference.) Review of Systems Constitutional: denies: Fever, Chills Nose: denies: Rhinorrhea / runny nose, Congestion Throat: denies: Sore throat Cardiac: denies: Chest pain / pressure, Palpitations, Pedal edema, Calf pain Respiratory: reports: Dyspnea. denies: Cough, Wheezing GI: reports: Abdominal Pain (chronic due to colon CA.), Nausea, Vomiting (limited), Diarrhea. denies: Abdominal Swelling, Bloody / black stool : denies: Dysuria Musculoskeletal: denies: Extremity swelling Neurologic: reports: Generalized weakness. denies: Altered mental status, Headache Psychiatric: reports: Anxiety PD PAST MEDICAL HISTORY - Past Medical History Cardiovascular: None Respiratory: None Neuro: None Endocrine/Autoimmune: None GI: GERD, GI bleed, Ulcers, Other (colon CA) : None HEENT: Chronic vision loss Psych: None Musculoskeletal: Osteoarthritis Derm: None - Past Surgical History Past Surgical History: Yes General: Cholecystectomy, Colonoscopy, Other - Present Medications Home Medications: Ambulatory Orders Medication Instructions Recorded Confirmed Glucos Sul 2Kcl/MSM/Chond/C/Mn 1 cap PO DAILY 06/16/21 08/03/21 [Glucosamine Chondroitin Cap] Zinc Gluconate [Zinc] 30 mg PO DAILY 06/16/21 08/03/21 Lidocaine/Prilocain 2.5% Cream 5 applic TOP UD #1 gm 07/10/21 08/03/21 [Emla 2.5% Cream] Ondansetron HCl [Zofran] 4 mg PO Q6HR PRN #30 tab 07/10/21 08/03/21 Prochlorperazine Maleate 10 mg PO Q6HR PRN #30 tab 07/10/21 08/03/21 [Compazine] Acetaminophen [Acetaminophen Extra 1,000 mg PO Q6HR PRN 07/24/21 08/03/21 Strength] Iron,Carbonyl/Ascorbic Acid [Fe C 1 tab PO DAILY 07/28/21 08/03/21 Tablet] Docusate Sodium 250Mg Capsule 250 mg PO DAILY #10 cap 08/03/21 [Colace 250Mg Capsule] HYDROcod/ACETAM 5/325 [[place] 5/325] 1 each PO Q4H #5 tablet 08/03/21 Potassium Chloride [K-Dur] 40 meq PO BID 09/08/21 09/08/21 Diphenoxylate/Atropine [Lomotil] 2.5 mg PO PRN 09/15/21 - Allergies Allergies/Adverse Reactions: Allergies Allergy/AdvReac Type Severity Reaction Status Date / Time No Known Drug Allergies Allergy Verified 09/16/21 11:42 - Social History Does the pt smoke?: No Smoking Status: Never smoker Does the pt drink ETOH?: No Does the pt have substance abuse?: No - Immunizations Immunizations are current?: No Immunizations: TDAP >10years/unknown - POLST Patient has POLST: No PD ED PE NORMAL - Vitals Vital signs reviewed: Yes - General General: Alert and oriented X 3, Well developed/nourished, Other (He is tachypneic and tachycardic with some pallor and seems anxious about his breathing. He is having good respiratory effort. He is on a facemask.) - HEENT HEENT: Pharynx benign. No: Moist mucous membranes - Neck Neck: Supple, no meningeal sign, No adenopathy, No JVD - Cardiac Cardiac: No murmur. No: RRR (tachycardic but regular at 110-120s) - Respiratory Respiratory: Clear bilaterally (his lungs actually sound clear. ) - Abdomen Abdomen: Soft, Non distended, Other (He has some tenderness in the mid to lower abdomen which he states is chronic for him. The abdomen is nondistended.). No: Normal bowel sounds (diminished) - Male Male : Deferred - Rectal Rectal: Deferred - Back Back: No CVA TTP - Derm Derm: Warm and dry. No: Normal color (pallor) - Extremities Extremities: No deformity, No tenderness to palpate, No edema, No calf tenderness / cord - Neuro Neuro: Alert and oriented X 3, No motor deficit, Normal speech Eye Opening: Spontaneous Motor: Obeys Commands Verbal: Oriented GCS Score: 15 - Psych Psych: No: Normal affect (anxious) Results - Vitals Vitals: Vital Signs - 24 hr 09/18/21 09/18/21 09/18/21 20:45 21:00 21:15 Temperature 36.6 C Heart Rate 124 H 122 H 120 H Respiratory 41 H 36 H 35 H Rate Blood Pressure 155/133 H 89/62 L 80/69 L O2 Saturation 94 92 09/18/21 09/18/21 22:00 22:15 Temperature Heart Rate 126 H 123 H Respiratory 30 H 36 H Rate Blood Pressure 89/64 L 100/75 O2 Saturation 100 90 L Oxygen O2 Source Non-rebreather mask - Labs Labs: Laboratory Tests 09/18/21 09/18/21 09/18/21 20:50 20:50 20:50 WBC 2.0 L* RBC 4.99 Hgb 16.8 Hct 46.3 MCV 92.8 MCH 33.7 H MCHC 36.3 H RDW 15.8 H Plt Count 145 MPV 10.1 Neut # (Auto) 1.2 L Lymph # (Auto) 0.4 L [place] # (Auto) 0.4 Eos # (Auto) 0.0 Baso # (Auto) 0.0 Absolute Nucleated RBC 0.05 Nucleated RBC % 2.5 Manual Slide Review Indicated WBC Morphology NORMAL APPEARANCE Platelet Estimate NORMAL (130-450,000) Platelet Morphology NORMAL APPEARANCE RBC Morph Micro Appear NORMAL APPEARANCE D-Dimer Bld Gas Analysis Time Sample Site ABG pH ABG pCO2 ABG pO2 ABG HCO3 ABG Total CO2 ABG O2 Saturation ABG Base Excess [place] Test VBG pH VBG pCO2 VBG pO2 VBG HCO3 VBG Total CO2 VBG O2 Saturation VBG Base Excess O2 Delivery Device FiO2 EPAP IPAP Sodium 132 L Potassium 2.4 L* Chloride 96 L Carbon Dioxide 14 L Anion Gap 22.0 H BUN 19 Creatinine 2.2 H Estimated GFR (MDRD) 29 L Glucose 141 H Calcium 9.1 Magnesium 2.9 H Total Bilirubin 1.5 H AST < 10 L ALT < 10 L Alkaline Phosphatase 58 Troponin I High Sens 121.1 H* B-Natriuretic Peptide Total Protein 6.2 L Albumin 2.7 L Globulin 3.5 Albumin/Globulin Ratio 0.8 L Lipase 17 L Nasal Adenovirus (PCR) Nasal B. parapertussis DNA (PCR) Nasal Coronavir 229E PCR Nasal Coronavir HKU1 PCR Nasal Coronavir NL63 PCR Nasal Coronavir OC43 PCR Nasal Enterovir/Rhinovir PCR Nasal Influenza B PCR Nasal Influenza A PCR Nasal Parainfluen 1 PCR Nasal Parainfluen 2 PCR Nasal Parainfluen 3 PCR Nasal Parainfluen 4 PCR Nasal RSV (PCR) Nasal B.pertussis DNA PCR Nasal C.pneumoniae (PCR) Sohail Human Metapneumo PCR Nasal M.pneumoniae (PCR) Nasal SARS-CoV-2 (PCR) 09/18/21 09/18/21 09/18/21 20:50 20:50 20:50 WBC RBC Hgb Hct MCV MCH MCHC RDW Plt Count MPV Neut # (Auto) Lymph # (Auto) [place] # (Auto) Eos # (Auto) Baso # (Auto) Absolute Nucleated RBC Nucleated RBC % Manual Slide Review WBC Morphology Platelet Estimate Platelet Morphology RBC Morph Micro Appear D-Dimer 925.3 H Bld Gas Analysis Time Sample Site ABG pH ABG pCO2 ABG pO2 ABG HCO3 ABG Total CO2 ABG O2 Saturation ABG Base Excess [place] Test VBG pH 7.172 L VBG pCO2 35.2 L VBG pO2 21.5 L VBG HCO3 12.6 L VBG Total CO2 13.7 L VBG O2 Saturation 34.5 L VBG Base Excess -14.8 L O2 Delivery Device FiO2 EPAP IPAP Sodium Potassium Chloride Carbon Dioxide Anion Gap BUN Creatinine Estimated GFR (MDRD) Glucose Calcium Magnesium Total Bilirubin AST ALT Alkaline Phosphatase Troponin I High Sens B-Natriuretic Peptide 149 H Total Protein Albumin Globulin Albumin/Globulin Ratio Lipase Nasal Adenovirus (PCR) Nasal B. parapertussis DNA (PCR) Nasal Coronavir 229E PCR Nasal Coronavir HKU1 PCR Nasal Coronavir NL63 PCR Nasal Coronavir OC43 PCR Nasal Enterovir/Rhinovir PCR Nasal Influenza B PCR Nasal Influenza A PCR Nasal Parainfluen 1 PCR Nasal Parainfluen 2 PCR Nasal Parainfluen 3 PCR Nasal Parainfluen 4 PCR Nasal RSV (PCR) Nasal B.pertussis DNA PCR Nasal C.pneumoniae (PCR) Sohail Human Metapneumo PCR Nasal M.pneumoniae (PCR) Nasal SARS-CoV-2 (PCR) 09/18/21 09/18/21 21:15 21:15 WBC RBC Hgb Hct MCV MCH MCHC RDW Plt Count MPV Neut # (Auto) Lymph # (Auto) [place] # (Auto) Eos # (Auto) Baso # (Auto) Absolute Nucleated RBC Nucleated RBC % Manual Slide Review WBC Morphology Platelet Estimate Platelet Morphology RBC Morph Micro Appear D-Dimer Bld Gas Analysis Time 2120 Sample Site RIGHT RADIAL ABG pH 7.41 ABG pCO2 11 L* ABG pO2 484 H* ABG HCO3 6.8 L ABG Total CO2 7.1 L* ABG O2 Saturation 100 H ABG Base Excess -13.6 L [place] Test POSITIVE VBG pH VBG pCO2 VBG pO2 VBG HCO3 VBG Total CO2 VBG O2 Saturation VBG Base Excess O2 Delivery Device BiPAP FiO2 100.00 EPAP 5 IPAP 12 Sodium Potassium Chloride Carbon Dioxide Anion Gap BUN Creatinine Estimated GFR (MDRD) Glucose Calcium Magnesium Total Bilirubin AST ALT Alkaline Phosphatase Troponin I High Sens B-Natriuretic Peptide Total Protein Albumin Globulin Albumin/Globulin Ratio Lipase Nasal Adenovirus (PCR) NOT DETECTED Nasal B. parapertussis DNA (PCR) NOT DETECTED Nasal Coronavir 229E PCR NOT DETECTED Nasal Coronavir HKU1 PCR NOT DETECTED Nasal Coronavir NL63 PCR NOT DETECTED Nasal Coronavir OC43 PCR NOT DETECTED Nasal Enterovir/Rhinovir PCR NOT DETECTED Nasal Influenza B PCR NOT DETECTED Nasal Influenza A PCR NOT DETECTED Nasal Parainfluen 1 PCR NOT DETECTED Nasal Parainfluen 2 PCR NOT DETECTED Nasal Parainfluen 3 PCR NOT DETECTED Nasal Parainfluen 4 PCR NOT DETECTED Nasal RSV (PCR) NOT DETECTED Nasal B.pertussis DNA PCR NOT DETECTED Nasal C.pneumoniae (PCR) NOT DETECTED Sohail Human Metapneumo PCR NOT DETECTED Nasal M.pneumoniae (PCR) NOT DETECTED Nasal SARS-CoV-2 (PCR) NOT DETECTED - Rads (name of study) chest xray Radiology: Prelim report reviewed (no acute abnormalities), See rad report chest CT Radiology: Prelim report reviewed (No emboli. No acute process in lungs. Note of upper abd with A/F levels and distended stomach. Concern for bowel obstruction. recommend dedicated abd CT. ), See rad report abd/pelvic CT Radiology: Prelim report reviewed (distended stomach and bowel concerning for bowel obstruction. Thickened bowel wall. ), See rad report PD MEDICAL DECISION MAKING - ED course Complexity details: reviewed results (no obvious pneumonia nor infectious process in lungs. CT angio without evident PEs (which was my likeliest concern). ), re-evaluated patient (He is improved color, alertness and breathing status on BiPAP, and then changed to facemask, still maintaining sats. BP soft low but improving with fluids. Initially was concerned about needing intubation but not appearing that now. ), considered differential (abrupt dyspnea with hypoxia and tachypnea/tachycardia without infiltrates nor wheeze. Concern for pneumonitis from chemo, PE, SC, pneumonia. ), d/w patient ED course: Complicated patient with known cancer and has been having post chemo diarrhea and vomiting with dehydration. Had been hydrated in the ER at the past few days. Now with abrupt dyspnea and hypoxia. Concern certainly for PE versus pneumonia versus pneumonitis versus pneumothorax or SC. We will test for those and he was found to not really have any apparent pneumonia nor heart failure. Elevated D-dimer and concern for PE led to a CT angio despite acute kidney injury with 2.2 creatinine. I felt the cause benefit warranted evaluation for PEs. This was done and no evident emboli were seen. He had been given a dose of Lovenox empirically prior to that but this can be continued at a lower dose just for preventative by the hospitalist. Otherwise his initial abdominal exam was somewhat tender that he said was ch ronic for him without distention. He had hypoactive bowel sounds. This did not seem of concern on initial eval. Subsequently he did have a little bit more distention of his abdomen which I would attribute to possibly ileus and air gulping from the tachypnea. Also with the BiPAP facemask. However given the CT chest leading to concern for obstruction, we did a CT abdomen as well. This showed concern for bowel obstruction. I would still consider differential of ileus and effect of the BiPAP with the some air gulping. Given the marked gastric distention, I did order NG tube prior to him just going to the ICU. He was given IV fluids with improvement in his blood pressure though remained mildly hypotensive. It was in the 90 systolic range up to 110. He did have 2 brief episodes of SVT with heart rate 180 that self corrected back to a sinus tachycardia within 3 to 5 minutes. No intervention was needed. 's potassium was low at 124 is given a supplement IV. Otherwise he had periph eral and his Port-A-Cath IV access is available. I talked with Dr. Medina who is on for the hospitalist service who will see the patient and admit him. - Critical Care Time(min): 60 Time Includes: Direct patient care, Reassess patient, Document care, Coordinate care, Medical consult Data interpretation: Labs, Pulse ox, ABG, CXR Procedures excluded from critical care time: EKG Departure - Departure Disposition: 66 [facility] DC/Xfer Clinical Impression: Dyspnea, Dehydration, Hypoxia, Acute kidney injury, Hypokalemia, Adenocarcinoma of rectum, stage 3, SVT (supraventricular tachycardia) Condition: Stable Record reviewed to determine appropriate education?: Yes Discharge Date/Time: 09/18/21 23:46
[2021-09-18] MEDS ORDERED: DEXAMETHASONE 10 MG/ML VIAL IVP STA (20:50)
[2021-09-18] MEDS ORDERED: SODIUM CHLORIDE 0.9% 1,000 ML IV STA ×3 (20:52→22:39)
[2021-09-18 21:03] LABS: HCT - HEMATOCRIT 46.3 % (42.0-52.0); HGB - HEMOGLOBIN 16.8 g/dL (14.0-18.0); MEAN CORPUSCULAR HEMOGLOBIN 33.7 pg (27.0-31.0); MEAN CORPUSCULAR HGB CONC 36.3 g/dL (32.0-36.0); MEAN CORPUSCULAR VOLUME 92.8 fL (80.0-94.0); MEAN PLATELET VOLUME 10.1 fL (7.4-11.4); PLT - PLATELET COUNT 145 10^3/uL (130-450); RED BLOOD COUNT 4.99 10^6/uL (4.70-6.10); RED CELL DISTRIBUTION WIDTH 15.8 % (12.0-15.0)
[2021-09-18 21:04] LABS: BASOPHILS % (AUTO) 0.5 %; LYMPHOCYTES # (AUTO) 0.4 10^3/uL (1.5-3.5); MONOCYTES # (AUTO) 0.4 10^3/uL (0.0-1.0); NEUTROPHILS # (AUTO) 1.2 10^3/uL (1.5-6.6); NRBC ABSOLUTE COUNT (AUTO) 0.05 x10^3/uL; NUCLEATED RED BLOOD CELLS AUTO 2.5 /100WBC
[2021-09-18 21:07] LABS: SLIDE REVIEW? Indicated
[2021-09-18 21:15] LABS: VBG HCO3 12.6 mmol/L (23-28); VBG PCO2 35.2 mmHg (41-51); VBG PH 7.172 (7.31-7.41); VBG PO2 21.5 mmHg (25-47); VBG TOTAL CO2 13.7 mmol/L (24-29)
[2021-09-18] MEDS ORDERED: IOVERSOL 320 100 ML VIAL IVP ONE ×2 (21:15→22:04)
[2021-09-18 21:16] LABS: VBG BASE EXCESS -14.8 mmol/L (-2 - +2); VBG OXYGEN SATURATION 34.5 % (60-80)
[2021-09-18 21:21] LABS: ABG BASE EXCESS -13.6 mmol/L (-2.0-3.0); ABG HCO3 6.8 mmol/L (22.0-26.0); ABG OXYGEN SATURATION 100 % (94-98); ABG PH 7.41 (7.35-7.45); ALLEN TEST POSITIVE
[2021-09-18 21:22] LABS: ALBUMIN 2.7 g/dL (3.2-5.5); ALBUMIN/GLOBULIN RATIO 0.8 (1.0-2.2); ALKALINE PHOSPHATASE 58 IU/L (42-121); BILIRUBIN,TOTAL 1.5 mg/dL (0.2-1.0); BUN - BLOOD UREA NITROGEN 19 mg/dL (6-20); CALCIUM 9.1 mg/dL (8.5-10.3); CARBON DIOXIDE - CO2 14 mmol/L (21-32); CHLORIDE 96 mmol/L (101-111); CREATININE 2.2 mg/dL (0.6-1.2); GFR - MDRD 29 (>89); GLUCOSE 141 mg/dL (70-100); LIPASE 17 U/L (22-51); MAGNESIUM 2.9 mg/dL (1.7-2.8); SODIUM 132 mmol/L (135-145); TOTAL PROTEIN 6.2 g/dL (6.7-8.2)
[2021-09-18 21:24] LABS: ABG PCO2 11 mmHg (34-45); ABG PO2 484 mmHg (80-100); ABG TCO2 7.1 MMOL/L (21.0-29.0)
[2021-09-18 21:24] LABS: POTASSIUM 2.4 mmol/L (3.5-5.0)
[2021-09-18 21:26] LABS: ALT ALANINE AMINOTRANSFERASE < 10 IU/L (10-60); AST ASPARTATE AMINOTRANSFERASE < 10 IU/L (10-42)
[2021-09-18] MEDS ORDERED: POTASSIUM CHLOR 10 MEQ/100 ML 10 MEQ/100 ML BAG IV ONE (21:26)
--- NOTE | 2021-09-18 21:37 | XRAY Report ---
PROCEDURE: Chest 1 View X-Ray INDICATIONS: chest pain TECHNIQUE: One view of the chest was acquired. COMPARISON: CT chest 08/24/2021. CXR 08/03/2021. FINDINGS: Surgical changes and devices: Left-sided port with the catheter tip projecting at the middle third of the SVC. This is slightly clips. Lungs and pleura: No pleural effusions or pneumothorax. Lungs are clear. Mediastinum: Mediastinal contours appear normal. Heart size is normal. Bones and chest wall: No suspicious bony lesions. Prior right-sided rib fractures. Overlying soft ti ssues appear unremarkable. IMPRESSION: No acute cardiopulmonary abnormality. Reviewed by: Farhad Ocampo MD on 09/18/2021 9:36 PM PDT Approved by: Farhad Ocampo MD on 09/18/2021 9:36 PM PDT Station ID: [id number]
[2021-09-18 22:03] LABS: PLATELET ESTIMATE, MANUAL NORMAL (130-450,000) (NORMAL); PLATELET MORPHOLOGY NORMAL APPEARANCE (NORMAL); RBC MORPHOLOGY (MULTIPLE) NORMAL APPEARANCE (NORMAL); WBC MORPHOLOGY (MULTIPLE) NORMAL APPEARANCE (NORMAL)
[2021-09-18] MEDS ORDERED: ONDANSETRON 4 MG/2 ML VIAL IVP STA (22:07)
[2021-09-18] MEDS ORDERED: ONDANSETRON 4 MG/2 ML VIAL ONE (22:14)
[2021-09-18] MEDS ORDERED: ENOXAPARIN 80 MG/0.8 ML SYRINGE SUBQ STA (22:24)
--- NOTE | 2021-09-18 22:33 | CT Report ---
PROCEDURE: ANGIO CHEST W/WO INDICATIONS: dyspnea/ tachycardia, abrupt; h/o CA CONTRAST: IV CONTRAST: Optiray 320 ml: 80 PO CONTRAST: *NO PO CONTRAST TECHNIQUE: After the administration of intravenous contrast, 2 mm axial images were acquired from the pulmonary apices to the posterior costophrenic angles during the arterial phase. In addition, 1 mm lung kernel and 5 mm soft tissue kernel reconstructions were performed. 3-dimensional coronal oblique maximum int ensity projection (MIP) reformats, 8 mm axial MIP, and 5 mm coronal and sagittal MPR reformats were t hen performed through the thorax. For radiation dose reduction, the following was used: automated exp osure control, adjustment of mA and/or kV according to patient size. COMPARISON: 08/24/2021 CT examination FINDINGS: Image quality: Excellent. Pulmonary arteries: Pulmonary arteries are normal in size, and demonstrate no intraluminal filling d efects to suggest central pulmonary embolism. Lungs and pleura: Lungs are clear. No pleural effusions or pneumothorax. Central and peripheral ai rways are patent. Mediastinum: Heart size is normal, without pericardial effusion. No mediastinal or hilar adenopathy . Thoracic aorta is normal in caliber and enhancement. Esophagus is moderately diffusely distended. Bones and chest wall: Left-sided pacer. No suspicious bony lesions. Ribs and thoracic spine appear intact throughout. No axillary or supraclavicular adenopathy. The thyroid is normal in size and the re are no incidental findings. Abdomen: Visualized portions of the upper abdomen demonstrate moderate gastric distention, as well as multiple dilated bowel loops within the right upper quadrant. IMPRESSION: 1. No pulmonary embolus. 2. No acute cardiopulmonary process. 3. Bowel obstruction with associated gastroesophageal dilatation. CLINICAL RECOMMENDATION STATEMENTS: In patients <35 years with an ITN detected on CT, MRI, or extrathyroidal ultrasound, the Committee re commends further evaluation with dedicated thyroid ultrasound if the nodule is "e1 cm and has no susp icious imaging features, and if the patient has normal life expectancy. In patients "e35 years with an ITN detected on CT, MRI, or extrathyroidal ultrasound, the Committee r ecommends further evaluation with dedicated thyroid ultrasound if the nodule is "e1.5 cm and has no s uspicious imaging features, and if the patient has normal life expectancy. (ACR, 2014) Reviewed by: Tee Craft MD on 09/18/2021 10:32 PM PDT Approved by: Tee Craft MD on 09/18/2021 10:32 PM PDT Station ID: [id number]
[2021-09-18 22:37] LABS: B. PARAPERTUSSIS- RESP PCR PAN NOT DETECTED; B. PERTUSSIS- RESP PCR PANEL NOT DETECTED; C. PNEUMONIAE- RESP PCR PANEL NOT DETECTED; CORONAVIRUS 229E-RESP PCR NOT DETECTED; CORONAVIRUS HKU1-RESP PCR NOT DETECTED; CORONAVIRUS NL63-RESP PCR NOT DETECTED; CORONAVIRUS OC43-RESP PCR NOT DETECTED; HUMAN METAPNEUMOVIRUS NOT DETECTED; INFLUENZA A- RESP PCR PANEL NOT DETECTED; INFLUENZA B - RESP PCR PANEL NOT DETECTED; M. PNEUMONIAE- RESP PCR PANEL NOT DETECTED; PARAINFLUENZA VIRUS 1 NOT DETECTED; PARAINFLUENZA VIRUS 2 NOT DETECTED; PARAINFLUENZA VIRUS 3 NOT DETECTED; PARAINFLUENZA VIRUS 4 NOT DETECTED; RHINOVIRUS/ENTEROVIRUS NOT DETECTED; RSV- RESP PCR PANEL NOT DETECTED; SARS-CoV-2 -RESP PCR PANEL NOT DETECTED
[2021-09-18] MEDS ORDERED: ONDANSETRON ODT 4 MG TABLET TL PRN (22:41)
[2021-09-18] MEDS ORDERED: ALBUTEROL NEB 2.5 MG/3 ML INH PRN (22:41)
[2021-09-18] MEDS ORDERED: oxyCODONE 5 MG TABLET PO PRN (22:41)
--- NOTE | 2021-09-18 23:00 | HISTORY & PHYSICAL EXAMINATION ---
Chief Complaint - Chief Complaint Chief Complaint: shortness of breath History of Present Illness - Admitted From Admitted From:: home - History Obtained From Records Reviewed: [facility] History obtained from: patient and Dr. Scanlon Exam Limitations: fatigue and tachypnea - History of Present Illness HPI Comment/Other: 76-year-old white male who presented to the emergency room with sudden severe shortness of breath. No chest pain, no abdominal pain. No cough, fever, chills, phlegm production, chest congestion. This is the third day pallavi row in the emergency room. He was seen in September 16 and September 17 for the co mplaints of generalized weakness, severe fatigue in the context of chemotherapy induced diarrhea. There was no abdominal pain with this. No fever or chills. Diarrhea was described as liquid and watery. No tenesmus. No blood. No stool culture were done. With a visit on September 16 and September 17 he received IV hydration. He was noted to be neutropenic from the chemotherapy. But BUN and creatinine were normal. He was sent home. He has a history of adenocarcinoma of the rectum. He presented in April of this year with rectal bleeding and seen in the ER. CT scan showed rectal wall involvement. Final staging is T3N1. He is being followed by [facility] oncology and is seeing Dinah Benavides. Started on mFOLFOX 6 on August 11, 2021. They are monitoring [address] staging that is new compared to a CT from 2013. He did cycle 3 on September 08, 2021. The plan is for him to complete 8 to 12 weeks of chemotherapy and then he is good to have concurrent chemo and radiation. When he started his CEA was 4.8. Unfortunately it is 10.5 with his most recent visit on September 08. Today he returns with a sudden shortness of breath. He was evaluated by Dr. Scanlon who found him to have a temperature of 36.6. Heart rate of 124. Pressure 155/133. Respirations 41. He was cold, and his body has clamped down on hands and feet with EMS reported O2 sats that were difficult to obtain. They could not tell if he was hypoxic or that he was just so cold that oximetry could not read. He was not cyanotic. Very lethargic, very difficult to get a history out of. He received a liter wide open and was started on 500 cc an hour. Because of the hypoxemia and sudden respiratory deterioration, he went to the CT scanner for CT angiogram. CT angiogram is without pulmonary embolus, or acute cardiopulmonary process. However he has visualized portions of the upper ab domen demonstrating moderate gastric distention as well as multiple dilated loops of bowel within the right upper quadrant. He has become significantly more hypotensive in the emergency room but at the same time becoming a little bit more alert and talkative. He is asking to be repositioned in the bed and is asking for his hat because his head is cold. While we were speaking to him he went into a narrow complex tachycardia of over 180 heart beats per minute. He is speaking with a fast panting respiratory rate and tells me that he does not know how much longer he can breathing this past because he is so tired. Sodium is 132, potassium 2.4. Creatinine was normal yesterday and the day befor e and is now 2.2. GFR is gone from 110->>29. Random glucose 141. Magnesium 2.9. Total bili 1.5. AST and ALT are less than 10. Troponin is 121. BNP is 149. He continues to be neutropenic with a white cell count of 2.0. Platelet count had gone down to 82 on September 08 and is come back up to 145 with today's labs. Blood gas is pH 7.41/PCO2 11/PO2 484/HCO3 6.8/base excess -13.6. BiPAP of 100% FiO2 at 5/12.I am interpreting this as metabolic acidosis with a compensatory tachypnea to bring down his PCO2. In this patient causes would be severe dehydration, cancer, or possible belly infection on the basis of the CT angiogram of the chest showing dilated loops of bowel. History - Past Medical History Cardiovascular: reports: None Respiratory: reports: None Neuro: reports: None Endocrine/Autoimmune: reports: None GI: reports: GERD, GI bleed, Ulcers : reports: None HEENT: reports: Chronic vision loss Psych: reports: None Musculoskeletal: reports: Osteoarthritis Derm: reports: None MRSA Hx?: No Other Past Medical History: Colon cancer - Past Surgical History General: reports: Cholecystectomy, Colonoscopy, Other (portacath placement, hernia repair) - Family & Social History Family History Comment/Other: Mother at age 93. Had a stroke. Also had a history of bowel obstruction. Dad at age 85 of a heart attack, also had a stroke. 1 sister has had uterine cancer. 1 brother has had prostate cancer. Daughter has gallbladder disease. Son has hemorrhoids Living arrangement: At home Living Situation: With family Social History Notes: Never smoked, rarely drinks alcohol. 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 Since his 's , he lives with his oldest son. - Substance History Use: Uses substance without health or social issues: NONE Abuse: Recurrent use of substance despite neg consequences: NONE Dependence: Experiences withdrawal or developed tolerances: NONE - POLST Patient has POLST: No POLST Status: Full Code Meds/Allgy - Home Medications Home Medications: Ambulatory Orders Medication Instructions Recorded Confirmed Glucos Sul 2Kcl/MSM/Chond/C/Mn 1 cap PO DAILY 06/16/21 08/03/21 [Glucosamine Chondroitin Cap] Zinc Gluconate [Zinc] 30 mg PO DAILY 06/16/21 08/03/21 Lidocaine/Prilocain 2.5% Cream 5 applic TOP UD #1 gm 07/10/21 08/03/21 [Emla 2.5% Cream] Ondansetron HCl [Zofran] 4 mg PO Q6HR PRN #30 tab 07/10/21 08/03/21 Prochlorperazine Maleate 10 mg PO Q6HR PRN #30 tab 07/10/21 08/03/21 [Compazine] Acetaminophen [Acetaminophen Extra 1,000 mg PO Q6HR PRN 07/24/21 08/03/21 Strength] Iron,Carbonyl/Ascorbic Acid [Fe C 1 tab PO DAILY 07/28/21 08/03/21 Tablet] Docusate Sodium 250Mg Capsule 250 mg PO DAILY #10 cap 08/03/21 [Colace 250Mg Capsule] HYDROcod/ACETAM 5/325 [[place] 5/325] 1 each PO Q4H #5 tablet 08/03/21 Potassium Chloride [K-Dur] 40 meq PO BID 09/08/21 09/08/21 Diphenoxylate/Atropine [Lomotil] 2.5 mg PO PRN 09/15/21 - Allergies Allergies/Adverse Reactions: Allergies Allergy/AdvReac Type Severity Reaction Status Date / Time No Known Drug Allergies Allergy Verified 09/16/21 11:42 Review of Systems - Constitutional Constitutional: reports: Fatigue, Chills, Malaise, Weakness, Poor appetite - Eyes Eyes: reports: Vision loss. denies: Pain, Irritation, Amaurosis, Blurred vision - Ears, Nose & Throat Ears, Nose & Throat: denies: Ear pain, Hearing loss, Hearing aids, Tinnitus, Vertigo, Nasal pain, Nasal discharge, Sore throat, Hoarseness - Cardiovascular Cariovascular: reports: Lightheadedness, Exertional dyspnea, Decr. exercise tolerance. denies: Irregular heart rate, Palpitations, Chest pain, Edema, Syncope - Respiratory Respiratory: denies: Cough, Sputum production, Wheezing, Snoring, Hemoptysis, Orthopnea, SOB at rest, SOB with exertion - Gastrointestinal Gastrointestinal: reports: Abdominal distention, Diarrhea, Reflux/heartburn. denies: Abdominal pain, Black stools, Bloody stools, Nausea, Vomiting - Genitourinary Genitourinary: denies: Dysuria, Frequency, Urgency, Hematuria, Incontinence - Musculoskeletal Musculoskeletal: reports: Muscle aches, Stiffness. denies: Muscle pain, Back pain, Gout, Joint pain - Integumentary Integumentary: denies: Rash, Pruritis, Lesions, Dryness - Neurological Neurological: reports: General weakness, Dizziness. denies: Focal weakness, Headache, Memory problems, Pre-existing deficit - Psychiatric Psychiatric: reports: Depression. denies: Anxiety, Suicidal, Delusions, Hallucinations - Endocrine Endocrine: denies: Polyuria, Polydypsia, Polyphagia - Hematologic/Lymphatic Hematologic/Lymphatic: denies: Anemia, Bruising, Petechiae, Blood clots Prior Level of Functionality: Prior to this illness, he was completely independent with activities of daily living. He did not need any durable medical equipment, did not eat any help with activities of daily living, but now he is relying more more on his son because he is so weak. It is very difficult for his son to take care of him.He cannot drive right now. Has not resorted to using a walker or a cane but probably needs one if not a wheelchair. Exam - Vital Signs Reviewed Vital Signs: Yes Vital Signs: Vital Signs x48h Temp Pulse Resp BP Pulse Ox 09/18/21 22:15 123 H 36 H 100/75 90 L 09/18/21 22:00 126 H 30 H 89/64 L 100 09/18/21 21:15 120 H 35 H 80/69 L 09/18/21 21:00 122 H 36 H 89/62 L 92 09/18/21 20:45 36.6 C 124 H 41 H 155/133 H 94 - Physical Exam General Appearance: positive: Alert, Moderate distress (Tachypneic, panting, ivanna y fatigued.Pale, temporal wasting) Eyes Bilateral: positive: PERRL, EOMI ENT: positive: Dry mucous membranes (Severe) Neck: positive: No JVD. negative: Lymphadenopathy (R), Lymphadenopathy (L), Stiff neck Respiratory: positive: Other (To keep neck up until a rate of 40, and down to 30. Laying at about 45 degrees, no use of accessory muscles. No tripoding.). negative: Wheezes, Rales, Rhonchi Cardiovascular: positive: Regular rate & rhythm, Tachycardia, Other (2 episodes of a narrow complex tachycardia. The first 1 lasted about 3 to 4 minutes. Then it went away. Second 1 lasted about 3 minutes. Patient does not feel any different. Portacath site is without redness or fluctuence.) Peripheral Pulses: positive: 0 Abdomen: positive: Other (Bloated, slightly distended. Hypoactive bowel sounds heard once. No rebound or guarding or tenderness. ER provider feels that since being in the ER he has become slightly more bloated. Could this be swallowing of air) Skin: positive: Dry, Pallor (Nailbeds white, with poor capillary refill on fingertips), Other (Cold hands and feet, warm face and trunk. No mottling of legs, abd or chest wall.) Extremities: positive: Non-tender, Full ROM, No pedal edema Neurologic/Psychiatric: positive: Oriented x3, CN's nml (2-12), Motor nml (Moderate to severe generalized weakness. He cannot reposition himself in the bed and needs us to move him.) Conclusion/Plan - Problem List (1) Adynamic ileus Conclusion/Plan: vs SBO. If it is ileus, he could just have ileus from chemotherapy, diarrhea with dehydration. Possible infectious colitis. There is no UTI, or mechanical obstruction seen. 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 If it is small bowel obstruction, no significant abdominal history for adhesions. Did have a history of gastric ulcers, but again no perforation or surgery. Tumor was not seen beyond the rectum. Plan: Inpatient status NG tube N.p.o. except for ice chips Surgical consult tomorrow morning. (2) Metabolic acidosis with respiratory alkalosis Conclusion/Plan: and increased anion gap. At this time I am assuming his metabolic acidosis is driving the tachypnea and compensatory respiratory alkalosis. Anion gap is elevated. He is not hypoxic. No PE, no pneumonia. No other agents that would cause metabolic acidosis such as Metformin, or methyl alcohol. No overdose of aspirin. Plan: Continue supportive measures with oxygen as needed. Right now he is on high flow oxygen at 100% and we can reduce that. I am hoping that with some of his dehydration and diarrhea slows down, his acid-base balance will improve enough that he will start being tachypneic. This gentleman has actually stated that he does not know how much longer he keep on breathing this past. He is a full code, will intubate if necessary. Intubation would be strictly for muscle fatigue and not any lung pathology (3) Chemotherapy-induced diarrhea Conclusion/Plan: vs. ileus.He has had symptoms of diarrhea since the beginning of his chemotherapy. So I suspect that chemotherapy is induced diarrhea which in turn has induced dehydration/ileus. I am hoping that aggressive IV hydration, supplementation of his electrolytes will help resolve his diarrhea. To make sure there is no infectious component to this that is causing ileus, will check for C. difficile and stool culture. (4) Chemotherapy induced neutropenia Conclusion/Plan: ANC is approximately 240. No fever. Chest x-ray clear. CT of chest clear for infiltrate. Urinalysis clear. While abdomen has ileus, there are no peritoneal findings. No plan for empiric antibiotics at this point. If he spikes a fever, or his abdominal exam changes, those will be added. Will order blood culture. (5) Hypokalemia Conclusion/Plan: supplement IV and recheck in am. (6) Adenocarcinoma of rectum, stage 3 Conclusion/Plan: Currently being followed by [facility] oncology. He has just completed cycle three of mFOLFOX. Chemo toxicity being monitored by oncology with last note read from September 08. Patient states he wants to be a full code. (7) SVT (supraventricular tachycardia) Conclusion/Plan: No previous history of cardiac disease. No reports of congestive heart failure. His narrow complex tachycardia is without symptoms and abruptly resolves that in an intervention in our part. I suspect with abdominal distention, electrolyte imbalance, dehydration, his electrical conduction system is irritated. Troponins indicate demand leak, no true MD. Plan: Continue to monitor. Hopefully this will resolve once he is adequately hydrated, abdomen is less distended with the NG tube, and potassium was supplemented. (8) Acute kidney injury Conclusion/Plan: due to severe dehydration. CT of abdomen doesn't show obstruction. Plan: hydration with recheck of labs in am. - Lab Results Lab results reviewed: Yes Fish Bones: 09/18/21 20:50 09/18/21 20:50 Other Lab Results: Troponin I is 121. Troponin #2 is ninety-five. Covid PCR negative. - Diagnostic Imaging Results Diagnostic Imaging Results: positive: Final report reviewed Diagnostic Imaging Results Comments: Chest x-ray without acute cardio pulmonary abnormality. Chest/thorax CT angiogram without pulmonary emboli. Lungs are clear without effusions or pneumothorax. Heart size normal. No adenopathy. He is read as having a left-sided pacer on CT. He has a Port-A-Cath in that area. Visualized portions of the upper abdomen demonstrate moderate gastric distention as well as multiple dilated bowel loops within the right upper quadrant. CT abdomen and pelvis has not been reported yet. However per verbal report from Dr. Scanlon there is no transition point and his stomach is dilated, small bowel is dilated. No free air. - EKG Results EKG Interpreted Independently: No EKG Comparison: No prior EKG Core Measures - Anticipated LOS I expect patient to be DC'd or transferred within 96 hours.: Yes - DVT/VTE - Prophylaxis VTE/DVT Device ordered at admit?: Yes
--- NOTE | 2021-09-18 23:28 | CT Report ---
PROCEDURE: Abdomen/Pelvis WO INDICATIONS: ? SBO on chest CT TECHNIQUE: Noncontrast 5 mm thick sections acquired from the diaphragms to the symphysis. 5 mm coronal and sagi ttal reformats were then performed. For radiation dose reduction, the following was used: automated exposure control, adjustment of mA and/or kV according to patient size. COMPARISON: None. FINDINGS: Image quality: Excellent. ABDOMEN: Lung bases: Lung bases are clear. Heart size is normal. Solid organs: Liver and spleen are normal in size. Gallbladder is surgically absent Pancreas is no rmal in contours. No adrenal nodules. Kidneys are normal in size, without hydronephrosis or nephrol ithiasis. Peritoneum and bowel: Moderate esophageal dilatation. Moderate dilatation of the stomach. Moderate to severe dilatation of multiple small bowel loops. There is a moderately thickened loop of distal ileu m within the right hemipelvis with surrounding fat stranding. Nodes and vessels: No retroperitoneal or mesenteric adenopathy by size criteria. Aorta and inferior vena cava are normal in caliber. Miscellaneous: No ventral hernias. PELVIS: Genitourinary: Bladder wall thickness is normal. Miscellaneous: No inguinal hernias or adenopathy. Bones: No suspicious bony lesions. Mild chronic L2 compression fracture. No acute vertebral body co mpression fractures. IMPRESSION: 1. Small bowel obstruction with associated gastroesophageal dilatation. 2. Thickened loop of distal small bowel within the right hemipelvis, consistent with ischemia, infect ion or inflammation. Reviewed by: Tee Craft MD on 09/18/2021 11:26 PM PDT Approved by: Tee Craft MD on 09/18/2021 11:26 PM PDT Station ID: [id number]
[2021-09-19] MEDS: MORPHINE 2 MG/ML CARPUJECT IVP PRN ×3 (00:13→13:20)
[2021-09-19] MEDS: POTASSIUM CHLOR 10 MEQ/100 ML 10 MEQ/100 ML BAG IV SCH ×8 (00:17→09:47)
[2021-09-19] MEDS: LACTATED RINGERS 1,000 ML IV SCH ×4 (00:17→06:35)
[2021-09-19] MEDS: SODIUM CHLORIDE FLUSH 0.9% 10 ML SYRINGE IVP SCH ×3 (01:52→18:13)
[2021-09-19] MEDS ORDERED: LACTATED RINGERS 1,000 ML IV ONE (02:24)
[2021-09-19 05:00] LABS: BASOPHILS % (AUTO) 0.8 %; EOSINOPHILS % (AUTO) 0.8 %; HCT - HEMATOCRIT 34.3 % (42.0-52.0); HGB - HEMOGLOBIN 12.7 g/dL (14.0-18.0); LYMPHOCYTES % (AUTO) 19.8 %; MEAN CORPUSCULAR HEMOGLOBIN 33.6 pg (27.0-31.0); MEAN CORPUSCULAR VOLUME 90.7 fL (80.0-94.0); MEAN PLATELET VOLUME 9.6 fL (7.4-11.4); MONOCYTES % (AUTO) 15.1 %; NEUTROPHILS % (AUTO) 62.7 %; PLT - PLATELET COUNT 67 10^3/uL (130-450); RED BLOOD COUNT 3.78 10^6/uL (4.70-6.10); RED CELL DISTRIBUTION WIDTH 15.2 % (12.0-15.0)
[2021-09-19 05:02] LABS: WHITE BLOOD COUNT 1.3 x10^3/uL (4.8-10.8)
[2021-09-19 05:04] LABS: ABNORMAL LYMPHS % (MANUAL) 0 %; BAND NEUTROPHILS % (MANUAL) 0 %
[2021-09-19 05:08] LABS: CALCIUM 7.6 mg/dL (8.5-10.3); CREATININE 1.7 mg/dL (0.6-1.2); POTASSIUM 2.9 mmol/L (3.5-5.0)
[2021-09-19 05:20] LABS: LYMPHOCYTES # (MANUAL) 0.3 10^3/uL (1.5-3.5); LYMPHOCYTES % (MANUAL) 23 %; MONOCYTES # (MANUAL) 0.2 10^3/uL (0.0-1.0); NEUTROPHILS # (MANUAL) 0.8 10^3/uL (1.5-6.6); PLATELET ESTIMATE, MANUAL DECREASED (<130,000) (NORMAL); PLATELET MORPHOLOGY NORMAL APPEARANCE (NORMAL); RBC MORPHOLOGY (MULTIPLE) NORMAL APPEARANCE (NORMAL)
[2021-09-19 05:21] LABS: DIFFERENTIAL COMMENT MANUAL DIFFERENTIAL; WBC MORPHOLOGY (MULTIPLE) NORMAL APPEARANCE (NORMAL)
[2021-09-19] MEDS: PANTOPRAZOLE 40 MG VIAL IVP SCH (06:35)
--- NOTE | 2021-09-19 06:51 | PROVIDER PROGRESS NOTE ---
Subjective - Prog Note Date Prog Note Date: 09/19/21 Prog Note Time: 06:48 - Subjective Pt reports feeling: Improved Subjective: He does not feel nearly as desperately short of breath as he did when he came in. He was consistently in the 40s, and at times he goes down to the low 30s now. NG tube had to be reinserted since it was coiled up. He has had close to 5 L of NG fluid removed. He is concerned because he has not been able to increase his weight, cannot eat enough, and now he is n.p.o. Current Medications - Current Medications Current Medications: Active Medications Acetaminophen (Acetaminophen 325 Mg Tablet) 650 mg PO Q4HR PRN PRN Reason: Pain 1 to 4 Albuterol (Albuterol Neb 2.5 Mg/3 Ml) 2.5 mg INH Q4HR PRN PRN Reason: Wheezing Enoxaparin Sodium (Enoxaparin 40 Mg/0.4 Ml Syringe) 40 mg SUBQ DAILY [facility] Potassium Chloride (Potassium Chloride) 10 meq in 100 mls @ 100 mls/hr IV Q1H [facility] Stop: 09/19/21 07:44 Last Admin: 09/19/21 06:35 Dose: 100 mls/hr Documented by: Morphine Sulfate (Morphine 2 Mg/Ml Carpuject) 2 mg IVP Q2HR PRN PRN Reason: Pain 8 to 10 Last Admin: 09/19/21 01:53 Dose: 2 mg Documented by: Ondansetron HCl (Ondansetron Odt 4 Mg Tablet) 4 mg TL Q6HR PRN PRN Reason: Nausea / Vomiting Ondansetron HCl (Ondansetron 4 Mg/2 Ml Vial) 4 mg IVP Q4HR PRN PRN Reason: Nausea / Vomiting Oxycodone HCl (Oxycodone 5 Mg Tablet) 5 mg PO Q4HR PRN PRN Reason: Pain 5 to 7 Pantoprazole Sodium (Pantoprazole 40 Mg Vial) 40 mg IVP QDAC [facility] Last Admin: 09/19/21 06:35 Dose: 40 mg Documented by: Sodium Chloride (Sodium Chloride Flush 0.9% 10 Ml Syringe) 10 ml IVP 0100,0900,1700 [facility] Last Admin: 09/19/21 01:52 Dose: 10 ml Documented by: Sodium Chloride (Sodium Chloride Flush 0.9% 10 Ml Syringe) 10 ml IVP PRN PRN PRN Reason: NEEDED PER PROVIDER ORDERS Glucos Sul 2Kcl/MSM/Chond/C/Mn [Glucosamine Chondroitin Cap] 1 cap PO DAILY 06/16/21 Zinc Gluconate [Zinc] 30 mg PO DAILY 06/16/21 Acetaminophen [Acetaminophen Extra Strength] 1,000 mg PO Q6HR PRN 07/24/21 Iron,Carbonyl/Ascorbic Acid [Fe C Tablet] 1 tab PO DAILY 07/28/21 Potassium Chloride [K-Dur] 40 meq PO BID 09/08/21 Diphenoxylate/Atropine [Lomotil] 2.5 mg PO PRN 09/15/21 Objective - Vital Signs/Intake & Output Reviewed Vital Signs: Yes Vital Signs: Vital Signs x48h Temp Pulse Resp BP Pulse Ox 09/19/21 06:00 36.8 C 109 H 38 H 81/59 L 100 09/19/21 05:00 108 H 35 H 91/60 100 09/19/21 04:00 105 H 37 H 83/70 L 100 09/19/21 03:00 112 H 42 H 93/61 100 09/19/21 02:00 115 H 33 H 81/64 L 100 09/19/21 00:29 36.9 C 112 H 37 H 107/77 100 Intake & Output: Intake & Output 09/16/21 09/17/21 09/18/21 09/19/21 23:59 23:59 23:59 23:59 Intake Total 1100 5495 Output Total 5340 Balance 1100 155 - Objective General Appearance: positive: Moderate distress, Other (A pale, fatigued cachect ic elderly gentleman, still panting but not as desperately as he was in the emergency room. Still alert enough to converse with me appropriately and express his concerns to me.) Eyes Bilateral: positive: PERRL, EOMI ENT: positive: Dry mucous membranes Neck: positive: No JVD. negative: Stiff neck Respiratory: positive: Other (Tachypnea continues but improved). negative: Wheezes, Rales, Rhonchi Cardiovascular: positive: Regular rate & rhythm, Tachycardia. negative: Gal lop/S4, Friction rub Abdomen: positive: Other (Distention gradually worsened overnight in the emergency room. On ICU, belly continues to be distended, slightly tympanic. Has bowel sounds. No rebound or guarding.) Skin: positive: Warm, Dry, Pallor Extremities: positive: Full ROM, No pedal edema Neurologic/Psychiatric: positive: Oriented x3, CN's nml (2-12). negative: Motor nml (Moderate generalized weakness. Is difficult for him to even lift up his head off the pillow.) - Lab Results Fish Bones: 09/19/21 04:50 09/19/21 04:50 Other Labs: Lab Results x24hrs 09/19/21 09/19/21 09/19/21 Range/Units 04:50 04:50 04:50 WBC (4.8-10.8) x10^3/uL RBC (4.70-6.10) 10^6/uL Hgb (14.0-18.0) g/dL Hct (42.0-52.0) % MCV (80.0-94.0) fL MCH (27.0-31.0) pg MCHC (32.0-36.0) g/dL RDW (12.0-15.0) % Plt Count (130-450) 10^3/uL MPV (7.4-11.4) fL Neut # (Auto) (1.5-6.6) 10^3/uL Lymph # (Auto) (1.5-3.5) 10^3/uL [place] # (Auto) (0.0-1.0) 10^3/uL Eos # (Auto) (0.0-0.7) 10^3/uL Baso # (Auto) (0.0-0.1) 10^3/uL Absolute Nucleated RBC x10^3/uL Total Counted Band Neuts % (Manual) (0 - 10) % Abnorm Lymph % (Manual) % Nucleated RBC % /100WBC Neutrophils # (Manual) (1.5-6.6) 10^3/uL Lymphocytes # (Manual) (1.5-3.5) 10^3/uL Monocytes # (Manual) (0.0-1.0) 10^3/uL Eosinophils # (Manual) (0-0.7) 10^3/uL Basophils # (Manual) (0-0.1) 10^3/uL Differential Comment Manual Slide Review WBC Morphology (NORMAL) Platelet Estimate (NORMAL) Platelet Morphology (NORMAL) RBC Morph Micro Appear (NORMAL) D-Dimer (200.0-255.0) ng/mL Bld Gas Analysis Time Sample Site ABG pH (7.35-7.45) ABG pCO2 (34-45) mmHg ABG pO2 (80-100) mmHg ABG HCO3 (22.0-26.0) mmol/L ABG Total CO2 (21.0-29.0) MMOL/L ABG O2 Saturation (94-98) % ABG Base Excess (-2.0-3.0) mmol/L [facility]a Test VBG pH (7.31-7.41) VBG pCO2 (41-51) mmHg VBG pO2 (25-47) mmHg VBG HCO3 (23-28) mmol/L VBG Total CO2 (24-29) mmol/L VBG O2 Saturation (60-80) % VBG Base Excess (-2 - +2) mmol/L O2 Delivery Device FiO2 EPAP cmH2O IPAP cmH2O Sodium 128 L (135-145) mmol/L Potassium 2.9 L (3.5-5.0) mmol/L Chloride 101 (101-111) mmol/L Carbon Dioxide 15 L (21-32) mmol/L Anion Gap 12.0 (6-13) BUN 24 H (6-20) mg/dL Creatinine 1.7 H (0.6-1.2) mg/dL Estimated GFR (MDRD) 40 L (>89) Glucose 91 (70-100) mg/dL Lactic Acid 6.1 H* (0.5-2.2) mmol/L Calcium 7.6 L (8.5-10.3) mg/dL Phosphorus 2.7 (2.5-4.6) mg/dL Magnesium (1.7-2.8) mg/dL Total Bilirubin (0.2-1.0) mg/dL AST (10-42) IU/L ALT (10-60) IU/L Alkaline Phosphatase (42-121) IU/L Troponin I High Sens (2.3-19.7) ng/L B-Natriuretic Peptide (5-100) pg/mL Total Protein (6.7-8.2) g/dL Albumin (3.2-5.5) g/dL Globulin (2.1-4.2) g/dL Albumin/Globulin Ratio (1.0-2.2) Lipase (22-51) U/L Nasal Adenovirus (PCR) Nasal B. parapertussis DNA (PCR) Nasal Coronavir 229E PCR Nasal Coronavir HKU1 PCR Nasal Coronavir NL63 PCR Nasal Coronavir OC43 PCR Nasal Enterovir/Rhinovir PCR Nasal Influenza B PCR Nasal Influenza A PCR Nasal Parainfluen 1 PCR Nasal Parainfluen 2 PCR Nasal Parainfluen 3 PCR Nasal Parainfluen 4 PCR Nasal RSV (PCR) Nasal Screen MRSA (PCR) (NEGATIVE) Nasal B.pertussis DNA PCR Nasal C.pneumoniae (PCR) Sohail Human Metapneumo PCR Nasal M.pneumoniae (PCR) Nasal SARS-CoV-2 (PCR) 09/19/21 09/18/21 09/18/21 Range/Units 04:50 23:50 23:50 WBC 1.3 L* (4.8-10.8) x10^3/uL RBC 3.78 L (4.70-6.10) 10^6/uL Hgb 12.7 L (14.0-18.0) g/dL Hct 34.3 L (42.0-52.0) % MCV 90.7 (80.0-94.0) fL MCH 33.6 H (27.0-31.0) pg MCHC 37.0 H (32.0-36.0) g/dL RDW 15.2 H (12.0-15.0) % Plt Count 67 L (130-450) 10^3/uL MPV 9.6 (7.4-11.4) fL Neut # (Auto) Not Reportable (1.5-6.6) 10^3/uL Lymph # (Auto) Not Reportable (1.5-3.5) 10^3/uL [place] # (Auto) Not Reportable (0.0-1.0) 10^3/uL Eos # (Auto) Not Reportable (0.0-0.7) 10^3/uL Baso # (Auto) Not Reportable (0.0-0.1) 10^3/uL Absolute Nucleated RBC Not Reportable x10^3/uL Total Counted 100 Band Neuts % (Manual) 0 (0 - 10) % Abnorm Lymph % (Manual) 0 % Nucleated RBC % Not Reportable /100WBC Neutrophils # (Manual) 0.8 L (1.5-6.6) 10^3/uL Lymphocytes # (Manual) 0.3 L (1.5-3.5) 10^3/uL Monocytes # (Manual) 0.2 (0.0-1.0) 10^3/uL Eosinophils # (Manual) 0.0 (0-0.7) 10^3/uL Basophils # (Manual) 0.0 (0-0.1) 10^3/uL Differential Comment MANUAL DIFFERENTIAL Manual Slide Review WBC Morphology NORMAL APPEARANCE (NORMAL) Platelet Estimate DECREASED (<130,000) (NORMAL) Platelet Morphology NORMAL APPEARANCE (NORMAL) RBC Morph Micro Appear NORMAL APPEARANCE (NORMAL) D-Dimer (200.0-255.0) ng/mL Bld Gas Analysis Time Sample Site ABG pH (7.35-7.45) ABG pCO2 (34-45) mmHg ABG pO2 (80-100) mmHg ABG HCO3 (22.0-26.0) mmol/L ABG Total CO2 (21.0-29.0) MMOL/L ABG O2 Saturation (94-98) % ABG Base Excess (-2.0-3.0) mmol/L Pineda Test VBG pH (7.31-7.41) VBG pCO2 (41-51) mmHg VBG pO2 (25-47) mmHg VBG HCO3 (23-28) mmol/L VBG Total CO2 (24-29) mmol/L VBG O2 Saturation (60-80) % VBG Base Excess (-2 - +2) mmol/L O2 Delivery Device FiO2 EPAP cmH2O IPAP cmH2O Sodium (135-145) mmol/L Potassium (3.5-5.0) mmol/L Chloride (101-111) mmol/L Carbon Dioxide (21-32) mmol/L Anion Gap (6-13) BUN (6-20) mg/dL Creatinine (0.6-1.2) mg/dL Estimated GFR (MDRD) (>89) Glucose (70-100) mg/dL Lactic Acid 7.6 H* (0.5-2.2) mmol/L Calcium (8.5-10.3) mg/dL Phosphorus (2.5-4.6) mg/dL Magnesium (1.7-2.8) mg/dL Total Bilirubin (0.2-1.0) mg/dL AST (10-42) IU/L ALT (10-60) IU/L Alkaline Phosphatase (42-121) IU/L Troponin I High Sens (2.3-19.7) ng/L B-Natriuretic Peptide (5-100) pg/mL Total Protein (6.7-8.2) g/dL Albumin (3.2-5.5) g/dL Globulin (2.1-4.2) g/dL Albumin/Globulin Ratio (1.0-2.2) Lipase (22-51) U/L Nasal Adenovirus (PCR) Nasal B. parapertussis DNA (PCR) Nasal Coronavir 229E PCR Nasal Coronavir HKU1 PCR Nasal Coronavir NL63 PCR Nasal Coronavir OC43 PCR Nasal Enterovir/Rhinovir PCR Nasal Influenza B PCR Nasal Influenza A PCR Nasal Parainfluen 1 PCR Nasal Parainfluen 2 PCR Nasal Parainfluen 3 PCR Nasal Parainfluen 4 PCR Nasal RSV (PCR) Nasal Screen MRSA (PCR) NEGATIVE (NEGATIVE) Nasal B.pertussis DNA PCR Nasal C.pneumoniae (PCR) Sohail Human Metapneumo PCR Nasal M.pneumoniae (PCR) Nasal SARS-CoV-2 (PCR) 09/18/21 09/18/21 09/18/21 Range/Units 22:58 21:15 21:15 WBC (4.8-10.8) x10^3/uL RBC (4.70-6.10) 10^6/uL Hgb (14.0-18.0) g/dL Hct (42.0-52.0) % MCV (80.0-94.0) fL MCH (27.0-31.0) pg MCHC (32.0-36.0) g/dL RDW (12.0-15.0) % Plt Count (130-450) 10^3/uL MPV (7.4-11.4) fL Neut # (Auto) (1.5-6.6) 10^3/uL Lymph # (Auto) (1.5-3.5) 10^3/uL [place] # (Auto) (0.0-1.0) 10^3/uL Eos # (Auto) (0.0-0.7) 10^3/uL Baso # (Auto) (0.0-0.1) 10^3/uL Absolute Nucleated RBC x10^3/uL Total Counted Band Neuts % (Manual) (0 - 10) % Abnorm Lymph % (Manual) % Nucleated RBC % /100WBC Neutrophils # (Manual) (1.5-6.6) 10^3/uL Lymphocytes # (Manual) (1.5-3.5) 10^3/uL Monocytes # (Manual) (0.0-1.0) 10^3/uL Eosinophils # (Manual) (0-0.7) 10^3/uL Basophils # (Manual) (0-0.1) 10^3/uL Differential Comment Manual Slide Review WBC Morphology (NORMAL) Platelet Estimate (NORMAL) Platelet Morphology (NORMAL) RBC Morph Micro Appear (NORMAL) D-Dimer (200.0-255.0) ng/mL Bld Gas Analysis Time 212 Sample Site RIGHT RADIAL ABG pH 7.41 (7.35-7.45) ABG pCO2 11 L* (34-45) mmHg ABG pO2 484 H* (80-100) mmHg ABG HCO3 6.8 L (22.0-26.0) mmol/L ABG Total CO2 7.1 L* (21.0-29.0) MMOL/L ABG O2 Saturation 100 H (94-98) % ABG Base Excess -13.6 L (-2.0-3.0) mmol/L Pineda Test POSITIVE VBG pH (7.31-7.41) VBG pCO2 (41-51) mmHg VBG pO2 (25-47) mmHg VBG HCO3 (23-28) mmol/L VBG Total CO2 (24-29) mmol/L VBG O2 Saturation (60-80) % VBG Base Excess (-2 - +2) mmol/L O2 Delivery Device BiPAP FiO2 100.00 EPAP 5 cmH2O IPAP 12 cmH2O Sodium (135-145) mmol/L Potassium (3.5-5.0) mmol/L Chloride (101-111) mmol/L Carbon Dioxide (21-32) mmol/L Anion Gap (6-13) BUN (6-20) mg/dL Creatinine (0.6-1.2) mg/dL Estimated GFR (MDRD) (>89) Glucose (70-100) mg/dL Lactic Acid (0.5-2.2) mmol/L Calcium (8.5-10.3) mg/dL Phosphorus (2.5-4.6) mg/dL Magnesium (1.7-2.8) mg/dL Total Bilirubin (0.2-1.0) mg/dL AST (10-42) IU/L ALT (10-60) IU/L Alkaline Phosphatase (42-121) IU/L Troponin I High Sens 95.0 H* (2.3-19.7) ng/L B-Natriuretic Peptide (5-100) pg/mL Total Protein (6.7-8.2) g/dL Albumin (3.2-5.5) g/dL Globulin (2.1-4.2) g/dL Albumin/Globulin Ratio (1.0-2.2) Lipase (22-51) U/L Nasal Adenovirus (PCR) NOT DETECTED Nasal B. parapertussis DNA (PCR) NOT DETECTED Nasal Coronavir 229E PCR NOT DETECTED Nasal Coronavir HKU1 PCR NOT DETECTED Nasal Coronavir NL63 PCR NOT DETECTED Nasal Coronavir OC43 PCR NOT DETECTED Nasal Enterovir/Rhinovir PCR NOT DETECTED Nasal Influenza B PCR NOT DETECTED Nasal Influenza A PCR NOT DETECTED Nasal Parainfluen 1 PCR NOT DETECTED Nasal Parainfluen 2 PCR NOT DETECTED Nasal Parainfluen 3 PCR NOT DETECTED Nasal Parainfluen 4 PCR NOT DETECTED Nasal RSV (PCR) NOT DETECTED Nasal Screen MRSA (PCR) (NEGATIVE) Nasal B.pertussis DNA PCR NOT DETECTED Nasal C.pneumoniae (PCR) NOT DETECTED Sohail Human Metapneumo PCR NOT DETECTED Nasal M.pneumoniae (PCR) NOT DETECTED Nasal SARS-CoV-2 (PCR) NOT DETECTED 09/18/21 09/18/21 09/18/21 Range/Units 20:50 20:50 20:50 WBC (4.8-10.8) x10^3/uL RBC (4.70-6.10) 10^6/uL Hgb (14.0-18.0) g/dL Hct (42.0-52.0) % MCV (80.0-94.0) fL MCH (27.0-31.0) pg MCHC (32.0-36.0) g/dL RDW (12.0-15.0) % Plt Count (130-450) 10^3/uL MPV (7.4-11.4) fL Neut # (Auto) (1.5-6.6) 10^3/uL Lymph # (Auto) (1.5-3.5) 10^3/uL [place] # (Auto) (0.0-1.0) 10^3/uL Eos # (Auto) (0.0-0.7) 10^3/uL Baso # (Auto) (0.0-0.1) 10^3/uL Absolute Nucleated RBC x10^3/uL Total Counted Band Neuts % (Manual) (0 - 10) % Abnorm Lymph % (Manual) % Nucleated RBC % /100WBC Neutrophils # (Manual) (1.5-6.6) 10^3/uL Lymphocytes # (Manual) (1.5-3.5) 10^3/uL Monocytes # (Manual) (0.0-1.0) 10^3/uL Eosinophils # (Manual) (0-0.7) 10^3/uL Basophils # (Manual) (0-0.1) 10^3/uL Differential Comment Manual Slide Review WBC Morphology (NORMAL) Platelet Estimate (NORMAL) Platelet Morphology (NORMAL) RBC Morph Micro Appear (NORMAL) D-Dimer 925.3 H (200.0-255.0) ng/mL Bld Gas Analysis Time Sample Site ABG pH (7.35-7.45) ABG pCO2 (34-45) mmHg ABG pO2 (80-100) mmHg ABG HCO3 (22.0-26.0) mmol/L ABG Total CO2 (21.0-29.0) MMOL/L ABG O2 Saturation (94-98) % ABG Base Excess (-2.0-3.0) mmol/L [facility] Test VBG pH 7.172 L (7.31-7.41) VBG pCO2 35.2 L (41-51) mmHg VBG pO2 21.5 L (25-47) mmHg VBG HCO3 12.6 L (23-28) mmol/L VBG Total CO2 13.7 L (24-29) mmol/L VBG O2 Saturation 34.5 L (60-80) % VBG Base Excess -14.8 L (-2 - +2) mmol/L O2 Delivery Device FiO2 EPAP cmH2O IPAP cmH2O Sodium (135-145) mmol/L Potassium (3.5-5.0) mmol/L Chloride (101-111) mmol/L Carbon Dioxide (21-32) mmol/L Anion Gap (6-13) BUN (6-20) mg/dL Creatinine (0.6-1.2) mg/dL Estimated GFR (MDRD) (>89) Glucose (70-100) mg/dL Lactic Acid (0.5-2.2) mmol/L Calcium (8.5-10.3) mg/dL Phosphorus (2.5-4.6) mg/dL Magnesium (1.7-2.8) mg/dL Total Bilirubin (0.2-1.0) mg/dL AST (10-42) IU/L ALT (10-60) IU/L Alkaline Phosphatase (42-121) IU/L Troponin I High Sens (2.3-19.7) ng/L B-Natriuretic Peptide 149 H (5-100) pg/mL Total Protein (6.7-8.2) g/dL Albumin (3.2-5.5) g/dL Globulin (2.1-4.2) g/dL Albumin/Globulin Ratio (1.0-2.2) Lipase (22-51) U/L Nasal Adenovirus (PCR) Nasal B. parapertussis DNA (PCR) Nasal Coronavir 229E PCR Nasal Coronavir HKU1 PCR Nasal Coronavir NL63 PCR Nasal Coronavir OC43 PCR Nasal Enterovir/Rhinovir PCR Nasal Influenza B PCR Nasal Influenza A PCR Nasal Parainfluen 1 PCR Nasal Parainfluen 2 PCR Nasal Parainfluen 3 PCR Nasal Parainfluen 4 PCR Nasal RSV (PCR) Nasal Screen MRSA (PCR) (NEGATIVE) Nasal B.pertussis DNA PCR Nasal C.pneumoniae (PCR) Sohail Human Metapneumo PCR Nasal M.pneumoniae (PCR) Nasal SARS-CoV-2 (PCR) 09/18/21 09/18/21 09/18/21 Range/Units 20:50 20:50 20:50 WBC 2.0 L* (4.8-10.8) x10^3/uL RBC 4.99 (4.70-6.10) 10^6/uL Hgb 16.8 (14.0-18.0) g/dL Hct 46.3 (42.0-52.0) % MCV 92.8 (80.0-94.0) fL MCH 33.7 H (27.0-31.0) pg MCHC 36.3 H (32.0-36.0) g/dL RDW 15.8 H (12.0-15.0) % Plt Count 145 (130-450) 10^3/uL MPV 10.1 (7.4-11.4) fL Neut # (Auto) 1.2 L (1.5-6.6) 10^3/uL Lymph # (Auto) 0.4 L (1.5-3.5) 10^3/uL [place] # (Auto) 0.4 (0.0-1.0) 10^3/uL Eos # (Auto) 0.0 (0.0-0.7) 10^3/uL Baso # (Auto) 0.0 (0.0-0.1) 10^3/uL Absolute Nucleated RBC 0.05 x10^3/uL Total Counted Band Neuts % (Manual) (0 - 10) % Abnorm Lymph % (Manual) % Nucleated RBC % 2.5 /100WBC Neutrophils # (Manual) (1.5-6.6) 10^3/uL Lymphocytes # (Manual) (1.5-3.5) 10^3/uL Monocytes # (Manual) (0.0-1.0) 10^3/uL Eosinophils # (Manual) (0-0.7) 10^3/uL Basophils # (Manual) (0-0.1) 10^3/uL Differential Comment Manual Slide Review Indicated WBC Morphology NORMAL APPEARANCE (NORMAL) Platelet Estimate NORMAL (130-450,000) (NORMAL) Platelet Morphology NORMAL APPEARANCE (NORMAL) RBC Morph Micro Appear NORMAL APPEARANCE (NORMAL) D-Dimer (200.0-255.0) ng/mL Bld Gas Analysis Time Sample Site ABG pH (7.35-7.45) ABG pCO2 (34-45) mmHg ABG pO2 (80-100) mmHg ABG HCO3 (22.0-26.0) mmol/L ABG Total CO2 (21.0-29.0) MMOL/L ABG O2 Saturation (94-98) % ABG Base Excess (-2.0-3.0) mmol/L [facility]a Test VBG pH (7.31-7.41) VBG pCO2 (41-51) mmHg VBG pO2 (25-47) mmHg VBG HCO3 (23-28) mmol/L VBG Total CO2 (24-29) mmol/L VBG O2 Saturation (60-80) % VBG Base Excess (-2 - +2) mmol/L O2 Delivery Device FiO2 EPAP cmH2O IPAP cmH2O Sodium 132 L (135-145) mmol/L Potassium 2.4 L* (3.5-5.0) mmol/L Chloride 96 L (101-111) mmol/L Carbon Dioxide 14 L (21-32) mmol/L Anion Gap 22.0 H (6-13) BUN 19 (6-20) mg/dL Creatinine 2.2 H (0.6-1.2) mg/dL Estimated GFR (MDRD) 29 L (>89) Glucose 141 H (70-100) mg/dL Lactic Acid (0.5-2.2) mmol/L Calcium 9.1 (8.5-10.3) mg/dL Phosphorus (2.5-4.6) mg/dL Magnesium 2.9 H (1.7-2.8) mg/dL Total Bilirubin 1.5 H (0.2-1.0) mg/dL AST < 10 L (10-42) IU/L ALT < 10 L (10-60) IU/L Alkaline Phosphatase 58 (42-121) IU/L Troponin I High Sens 121.1 H* (2.3-19.7) ng/L B-Natriuretic Peptide (5-100) pg/mL Total Protein 6.2 L (6.7-8.2) g/dL Albumin 2.7 L (3.2-5.5) g/dL Globulin 3.5 (2.1-4.2) g/dL Albumin/Globulin Ratio 0.8 L (1.0-2.2) Lipase 17 L (22-51) U/L Nasal Adenovirus (PCR) Nasal B. parapertussis DNA (PCR) Nasal Coronavir 229E PCR Nasal Coronavir HKU1 PCR Nasal Coronavir NL63 PCR Nasal Coronavir OC43 PCR Nasal Enterovir/Rhinovir PCR Nasal Influenza B PCR Nasal Influenza A PCR Nasal Parainfluen 1 PCR Nasal Parainfluen 2 PCR Nasal Parainfluen 3 PCR Nasal Parainfluen 4 PCR Nasal RSV (PCR) Nasal Screen MRSA (PCR) (NEGATIVE) Nasal B.pertussis DNA PCR Nasal C.pneumoniae (PCR) Sohail Human Metapneumo PCR Nasal M.pneumoniae (PCR) Nasal SARS-CoV-2 (PCR) ABX Reporting Has patient been on IV antibiotics over the past 48 hours?: No Assessment/Plan - Problem List (1) Adynamic ileus Impression: vs SBO. If it is ileus, he could just have ileus from chemotherapy, diarrhea with dehydration. Possible infectious colitis. There is no UTI, or mechanical obstruction seen. 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 If it is small bowel obstruction, no significant abdominal history for adhesions. Did have a history of gastric ulcers, but again no perforation or surgery. Tumor was not seen beyond the rectum. He did not have a transition point on CT. Overnight and NG tube was placed. 4000 cc was removed. Chest x-ray shows that the NG tube is coiled in his lower esophagus and it still managed to remove 4000 cc. So we jb the NG back, and replaced it. He is now on low intermittent suction and still got another 800 cc out this morning. Patient remains afebrile. Tachycardia is slightly improved proved, tachypnea is slightly improved. Still hypotensive. But urine output is good. He put out 490 cc since midnight last night. Plan: NG tube to continue N.p.o. except for ice chips Surgical consult this morning. I did speak to Dr. Santos. But the patient reminded me that he is a patient of Dr. Randhawa. I will call Dr. Randhawa this morning and see if he wants to see this patient. (2) Metabolic acidosis with respiratory alkalosis improving. Conclusion/Plan: Anion gap has closed. At this time I am assuming his metabolic acidosis is dri ving the tachypnea and compensatory respiratory alkalosis. Anion gap is elevated. He is not hypoxic. No PE, no pneumonia. No other agents that would cause metabolic acidosis such as Metformin, or methyl alcohol. No overdose of aspirin. Lactic acid had not been done in the emergency room. It was drawn once he got to the ICU and it was 7.6. Overnight hydration and NG tube decompression has r esulted in a slight improvement of a lactic acid of 6.1. Overall he is received a 3 L bolus wide open between the emergency room and ICU. And I have him on 500 cc an hour.He has not been hypoxic so I have stopped his oxygen. Tachypnea is improving. Although he says he still tired, he is not nearly as short of breath. He is a full code. Plan: Continue IV fluids, NG suction, surgery consult for today, repeat lactic acid in 4 hours. (3) Chemotherapy-induced diarrhea Conclusion/Plan: vs. ileus.He has had symptoms of diarrhea since the beginning of his chemotherapy. So I suspect that chemotherapy is induced diarrhea which in turn has induced dehydration/ileus. I am hoping that aggressive IV hydration, supplementation of his electrolytes will help resolve his diarrhea. To make sure there is no infectious component to this that is causing ileus, will check for C. difficile and stool culture. Since he has been in ICU, he has not had another bowel movement. (4) Chemotherapy induced neutropenia Conclusion/Plan: ANC was approximately 240. No fever. Chest x-ray clear. CT of chest clear for infiltrate. Urinalysis clear. While abdomen has ileus, there are no peritoneal findings. No plan for empiric antibiotics at this point. If he spikes a fever, or his abdominal exam changes, those will be added. Will order blood culture. (5) Hypokalemia Continues, now with hyponatremia on lactated ringers. Conclusion/Plan: He has received 10 mEq K riders. States he has a central line, ICU protocol states he can now go to 20 mEq an hour. He will finish this current 80 mEq rider and then get another 80 mEq rider (6) Adenocarcinoma of rectum, stage 3 Conclusion/Plan: Currently being followed by [facility] oncology. He has just completed cycle three of mFOLFOX. Chemo toxicity being monitored by oncology with last note read from September 08. Patient states he wants to be a full code. (7) SVT (supraventricular tachycardia) Conclusion/Plan: No previous history of cardiac disease. No reports of congestive heart failure. His narrow complex tachycardia is without symptoms and abruptly resolved without an intervention in our part. I suspect with abdominal distention, electrolyte imbalance, dehydration, his electrical conduction system is irritated. Troponins indicate demand leak, no true MT. Plan: Continue to monitor. Hopefully this will resolve once he is adequately hydrated, abdomen is less distended with the NG tube, and potassium was supplemented. (8) Acute kidney injury improving Conclusion/Plan: due to severe dehydration. CT of abdomen doesn't show obstruction. Creatinine at baseline is 0.8. He was at 2.2 on admission. After aggressive IV hydration, creatinine is 1.7 this morning. Plan: Continue to monitor. Avoid nephrotoxic agents.
--- NOTE | 2021-09-19 08:04 | XRAY Report ---
PROCEDURE: Chest 1 View X-Ray INDICATIONS: NG placement TECHNIQUE: One view of the chest was acquired. COMPARISON: 09/18/2021 FINDINGS: Surgical changes and devices: Enteric tube is noted coiled within the esophagus with tip and side-por t overlying the upper mediastinum. Unchanged appearance of left chest wall cardiac device with tip ov erlying the expected location of the superior cavoatrial junction. Status post cholecystectomy. Lungs and pleura: No pleural effusions or pneumothorax. Low lung volumes causing prominence of the b ronchovascular markings. No focal consolidation, pneumothorax, or pleural effusion. Mediastinum: Mediastinal contours appear normal. Heart size is normal. Bones and chest wall: No suspicious bony lesions. Overlying soft tissues appear unremarkable. IMPRESSION: Enteric tube coiled within the esophagus with the tip overlying the superior mediastinum. Recommend r eplacement. Agree with preliminary report. Reviewed by: Duncan Mayorga DO on 09/19/2021 7:02 AM BEAR Approved by: Duncan Mayorga DO on 09/19/2021 7:02 AM BEAR Station ID: [id number]
--- NOTE | 2021-09-19 08:09 | XRAY Report ---
PROCEDURE: Abdomen 1 View X-Ray INDICATIONS: NG placement TECHNIQUE: 1 view of the abdomen were acquired. COMPARISON: Same day chest radiographs; CT abdomen and pelvis dated 09/18/2021 FINDINGS: Surgical changes and devices: Enteric tube is partially imaged along the lower chest and coiled withi n the esophagus. Cholecystectomy clips. Vaz catheter is noted with balloon likely within the bladde r which is only minimally distended with contrast Bowel: No pneumoperitoneum. Multiple dilated loops of small bowel most prominent within the right mi d abdomen. The stomach is markedly distended. Soft tissues: No masses; visualized solid organ contours appear normal in size. No suspicious abdom inal calcifications. Contrast is noted within the collecting system. Lung bases appear clear. Bones: Compression deformity of L2 reported as chronic on comparison CT. IMPRESSION: Enteric tube coiled within the distal esophagus. Recommend replacement. Multiple dilated loops of small bowel with distended stomach consistent with small bowel obstruction. Reviewed by: Duncan Mayorga DO on 09/19/2021 7:07 AM BEAR Approved by: Duncan Mayorga DO on 09/19/2021 7:07 AM BEAR Station ID: [id number]
[2021-09-19] MEDS: SODIUM CHLORIDE FLUSH 0.9% 10 ML SYRINGE IVP PRN (08:37)
[2021-09-19] MEDS: SODIUM CHLORIDE 0.9% 1,000 ML IV SCH ×2 (09:45→18:18)
--- NOTE | 2021-09-19 11:12 | PHARMACY PROGRESS NOTE ---
- Best Possible Medication History Admit Date and Time: 09/18/21 2243 Processed by: Pharmacy Medication History completed: Yes Patient Interview: Pt unable to participate Secondary Source(s): Other family member, Pharmacy records, Insurance records As the person ultimately responsible for medication therapy, providers are able to order a medication from an existing home medication list in [facility] via the "Reconcile Routine" prior to Confirmation of that medication by direct support professional. Such practice is discouraged except when the physician, in their clinical judgment, deems that a medical need exists for a medication without regard to previous use.
--- NOTE | 2021-09-19 13:14 | CONSULTATION NOTE ---
Referring Provider Consult Date: 09/19/21 Chief Complaint - Chief Complaint Chief Complaint: Abdominal pain/radiographic findings of obstruction versus ileus History of Present Illness - Admitted From Admitted From:: Home - History Obtained From Records Reviewed: Yes History obtained from: Patient Exam Limitations: None - History of Present Illness HPI Comment/Other: This patient is a very pleasant 76 year old male who is known to me as I diagnosed his anorectal cancer for which he currently received the third instillation of chemotherapy. The chemotherapy has been progressively "kicking his butt" and I explained to hi that this was usually the care with subsequent instillation having a greater effect. His appetite has been poor and he has lost weight since I saw him in my office. History - Past Medical History Cardiovascular: reports: None Respiratory: reports: None Neuro: reports: None Endocrine/Autoimmune: reports: None GI: reports: GERD, GI bleed, Ulcers, Other (colon CA) : reports: None HEENT: reports: Chronic vision loss Psych: reports: None Musculoskeletal: reports: Osteoarthritis Derm: reports: None MRSA Hx?: No Other Past Medical History: Colon cancer - Past Surgical History General: reports: Cholecystectomy, Colonoscopy, Other - Family & Social History Family History Comment/Other: Mother at age 93. Had a stroke. Also valles d a history of bowel obstruction. Dad at age 85 of a heart attack, also had a stroke. 1 sister has had uterine cancer. 1 brother has had prostate cancer. Daughter has gallbladder disease. Son has hemorrhoids Living arrangement: At home Living Situation: With family Social History Notes: Never smoked, rarely drinks alcohol. 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 Since his 's , he lives with his oldest son. - Substance History Use: Uses substance without health or social issues: NONE Abuse: Recurrent use of substance despite neg consequences: NONE Dependence: Experiences withdrawal or developed tolerances: NONE - POLST Patient has POLST: No POLST Status: Full Code Meds/Allgy - Home Medications Home Medications: Ambulatory Orders Medication Instructions Recorded Confirmed Lidocaine/Prilocain 2.5% Cream 5 applic TOP UD #1 gm 07/10/21 09/19/21 [Emla 2.5% Cream] Ondansetron HCl [Zofran] 4 mg PO Q6HR PRN #30 tab 07/10/21 09/19/21 Prochlorperazine Maleate 10 mg PO Q6HR PRN #30 tab 07/10/21 09/19/21 [Compazine] Potassium Chloride [K-Dur] 40 meq PO BID 09/08/21 09/19/21 Diphenoxylate/Atropine [Lomotil] 2.5 mg PO PRN PRN 09/15/21 09/19/21 - Allergies Allergies/Adverse Reactions: Allergies Allergy/AdvReac Type Severity Reaction Status Date / Time No Known Drug Allergies Allergy Verified 09/16/21 11:42 Review of Systems - Constitutional Constitutional: reports: Weakness, Poor appetite - Eyes Eyes: reports: Dipolpia (spelled diplopia) - Ears, Nose & Throat Ears, Nose & Throat: denies: Ear pain - Cardiovascular Cariovascular: denies: Irregular heart rate, Palpitations - Gastrointestinal Gastrointestinal: reports: Abdominal pain, Abdominal distention, Diarrhea, Nausea, Vomiting - Musculoskeletal Musculoskeletal: reports: Muscle pain, Back pain, Muscle aches, Stiffness - Neurological Neurological: reports: General weakness Exam - Vital Signs Reviewed Vital Signs: Yes Vital Signs: Vital Signs x48h Temp Pulse Resp BP Pulse Ox 09/19/21 12:00 36.6 C 118 H 32 H 92/65 100 09/19/21 11:00 113 H 38 H 91/62 09/19/21 09:56 36.4 C L 112 H 33 H 90/57 L 100 09/19/21 09:00 115 H 42 H 126/71 100 09/19/21 08:00 36.7 C 114 H 24 126/71 100 09/19/21 07:00 110 H 36 H 83/58 L 100 09/19/21 06:00 36.8 C 109 H 38 H 81/59 L 100 - Physical Exam General Appearance: positive: Mild distress (Having diarrhea.) Eyes Bilateral: positive: No lid inflammation, Conjunctivae nml (Slightly pale.), No scleral icterus ENT: positive: Dry mucous membranes Neck: positive: Trachea midline. negative: Tracheal deviation Respiratory: positive: Chest non-tender, No respiratory distress, Breath sounds nml Cardiovascular: positive: Regular rate & rhythm Abdomen: positive: Tenderness (More on the right side rather than the left. Positive bowel sounds.) Skin: positive: Pallor Extremities: positive: Other (Thin.). negative: Stanford's sign/cords Neurologic/Psychiatric: positive: Oriented x3, Sensation nml, Mood/affect nml Conclusion/Plan - Problem List (1) Adynamic ileus Conclusion/Plan: The current course of IVF and GI decompression is the correct course to be following. In this neutropenic patient the studies for infection are absolutely indicated. Would stay the course for next 48 hours and depending on clinical evaluation consider gastrograffin challenge only when patient improved. Have nutrition see patient to help with po intake of calories during chemotherapy. I will continue to follow and appreciate the opportunity to be involved in his care. - Lab Results Lab results reviewed: Yes Fish Bones: 09/19/21 04:50 09/19/21 04:50 - Diagnostic Imaging Results Diagnostic Imaging Results: positive: Final report reviewed
[2021-09-19] MEDS: ENOXAPARIN 40 MG/0.4 ML SYRINGE SUBQ SCH (13:17)
[2021-09-19] MEDS ORDERED: DIGOXIN 500 MCG/2 ML AMP IVP STA (16:27)
[2021-09-19 20:49] LABS: CALCIUM, IONIZED 1.13 mmol/L (1.15-1.33); VBG PH 7.382 (7.31-7.41)
[2021-09-19 20:57] LABS: CALCIUM 7.6 mg/dL (8.5-10.3); MAGNESIUM 2.1 mg/dL (1.7-2.8); PHOSPHORUS 2.2 mg/dL (2.5-4.6); POTASSIUM 3.1 mmol/L (3.5-5.0)
[2021-09-19] MEDS ORDERED: POTASSIUM PHOSPHATE 15 MMOL in SODIUM CHLORIDE 0.9% 250 ML IV ONE (21:06)
[2021-09-19] MEDS ORDERED: CALCIUM GLUCONATE 1,000 MG in SODIUM CHLORIDE 0.9% 50 ML IV ONE (21:06)
[2021-09-19] MEDS: POTASSIUM CHLOR 20 MEQ/100 ML 20 MEQ/100 ML BAG IV SCH ×2 (21:43→23:06)
[2021-09-20] MEDS: DIGOXIN 500 MCG/2 ML AMP IVP SCH ×3 (00:15→14:29)
[2021-09-20] MEDS: SODIUM CHLORIDE FLUSH 0.9% 10 ML SYRINGE IVP SCH ×3 (00:24→17:10)
[2021-09-20] MEDS: SODIUM CHLORIDE 0.9% 1,000 ML IV SCH (02:08)
[2021-09-20 02:40] LABS: CALCIUM, IONIZED 1.17 mmol/L (1.15-1.33); VBG PH 7.363 (7.31-7.41)
[2021-09-20 05:13] LABS: CALCIUM, IONIZED 1.17 mmol/L (1.15-1.33); VBG PH 7.346 (7.31-7.41)
[2021-09-20 05:14] LABS: BASOPHILS % (AUTO) 1.3 %; EOSINOPHILS % (AUTO) 0.3 %; HCT - HEMATOCRIT 31.9 % (42.0-52.0); HGB - HEMOGLOBIN 11.7 g/dL (14.0-18.0); LYMPHOCYTES % (AUTO) 4.4 %; MEAN CORPUSCULAR HEMOGLOBIN 34.1 pg (27.0-31.0); MEAN CORPUSCULAR HGB CONC 36.7 g/dL (32.0-36.0); MEAN PLATELET VOLUME 10.8 fL (7.4-11.4); MONOCYTES % (AUTO) 7.5 %; NEUTROPHILS % (AUTO) 85.9 %; PLT - PLATELET COUNT 71 10^3/uL (130-450); RED BLOOD COUNT 3.43 10^6/uL (4.70-6.10); RED CELL DISTRIBUTION WIDTH 15.7 % (12.0-15.0); WHITE BLOOD COUNT 3.2 x10^3/uL (4.8-10.8)
[2021-09-20 05:17] LABS: ABNORMAL LYMPHS % (MANUAL) 0 %; BAND NEUTROPHILS % (MANUAL) 0 %
[2021-09-20 05:23] LABS: CALCIUM 7.6 mg/dL (8.5-10.3); CREATININE 1.3 mg/dL (0.6-1.2); PHOSPHORUS 2.5 mg/dL (2.5-4.6); POTASSIUM 3.4 mmol/L (3.5-5.0)
[2021-09-20 05:40] LABS: LYMPHOCYTES # (MANUAL) 0.3 10^3/uL (1.5-3.5); LYMPHOCYTES % (MANUAL) 8 %; MONOCYTES # (MANUAL) 0.4 10^3/uL (0.0-1.0); NEUTROPHILS # (MANUAL) 2.6 10^3/uL (1.5-6.6)
[2021-09-20 05:41] LABS: DIFFERENTIAL COMMENT MANUAL DIFFERENTIAL; PLATELET ESTIMATE, MANUAL DECREASED (<130,000) (NORMAL); PLATELET MORPHOLOGY NORMAL APPEARANCE (NORMAL); RBC MORPHOLOGY (MULTIPLE) NORMAL APPEARANCE (NORMAL); WBC MORPHOLOGY (MULTIPLE) NORMAL APPEARANCE (NORMAL)
[2021-09-20] MEDS: POTASSIUM CHLOR 20 MEQ/100 ML 20 MEQ/100 ML BAG IV SCH ×2 (06:00→07:04)
[2021-09-20] MEDS: PANTOPRAZOLE 40 MG VIAL IVP SCH (06:00)
--- NOTE | 2021-09-20 07:41 | PROVIDER PROGRESS NOTE ---
Subjective - Prog Note Date Prog Note Date: 09/20/21 Prog Note Time: 07:38 - Subjective Subjective: He keeps on going back into SVT. Rates are high in the 120s. Loaded with digoxin to control rate but rate is still 120 this morning. His blood pressure is 98/59 this morning so giving him metoprolol would be contraindicated at this moment since it would make him more hypotensive. His respiratory rate is still in the 30s. This morning he is 36-37 with a 98% room air. He is not had any fevers. He has had the NG tube coiled in his esophagus again the second time. Right now is being left in place with the idea to give him rest overnight. We will pull the tube this morning. If he has any vomiting will replace the tube according to general surgery's request. Between midnight and 7 AM the patient put out 5200 cc yesterday. Between 7 AM and midnight last night he put out 2400 cc. Urine output was 1080, and 475 respectively. He continues to have abdominal pain. I asked him why his story changed over the course of his ER visit to his transfer to ICU when he was in the emergency room and initially in ICU, he did not have abdominal pain. He says that he just felt some measurable he did not tell us. Overall he feels better from when he was in the emergency room tonight. Less distention, less pain, but still Miserable. Current Medications - Current Medications Current Medications: Active Medications Acetaminophen (Acetaminophen 325 Mg Tablet) 650 mg PO Q4HR PRN PRN Reason: Pain 1 to 4 Albuterol (Albuterol Neb 2.5 Mg/3 Ml) 2.5 mg INH Q4HR PRN PRN Reason: Wheezing Digoxin (Digoxin 500 Mcg/2 Ml Amp) 250 mcg IVP TID [facility] Stop: 09/20/21 14:01 Last Admin: 09/20/21 05:04 Dose: 250 mcg Documented by: Digoxin (Digoxin 500 Mcg/2 Ml Amp) 125 mcg IVP DAILY [facility] Enoxaparin Sodium (Enoxaparin 40 Mg/0.4 Ml Syringe) 40 mg SUBQ DAILY [facility] Last Admin: 09/19/21 13:17 Dose: Not Given Documented by: Potassium Chloride (Potassium Chloride) 20 meq in 100 mls @ 100 mls/hr IV Q1H [facility]; Protocol Stop: 09/20/21 07:59 Last Admin: 09/20/21 07:04 Dose: 100 mls/hr Documented by: Potassium Chloride/Dextrose/Sod Cl (D5ns W/20 Meq Kcl) 1,000 mls @ 125 mls/hr IV .Q8H [facility] Mineral Oil (Min Oil/Dimethicon/Coconut Oil 92 Gm Tube) 1 applic TOP PRN PRN PRN Reason: Skin Care Morphine Sulfate (Morphine 2 Mg/Ml Carpuject) 2 mg IVP Q2HR PRN PRN Reason: Pain 8 to 10 Last Admin: 09/19/21 13:20 Dose: 1 mg Documented by: Ondansetron HCl (Ondansetron Odt 4 Mg Tablet) 4 mg TL Q6HR PRN PRN Reason: Nausea / Vomiting Ondansetron HCl (Ondansetron 4 Mg/2 Ml Vial) 4 mg IVP Q4HR PRN PRN Reason: Nausea / Vomiting Oxycodone HCl (Oxycodone 5 Mg Tablet) 5 mg PO Q4HR PRN PRN Reason: Pain 5 to 7 Last Admin: 09/19/21 16:40 Dose: 5 mg Documented by: Pantoprazole Sodium (Pantoprazole 40 Mg Vial) 40 mg IVP QDAC [facility] Last Admin: 09/20/21 06:00 Dose: 40 mg Documented by: Sodium Chloride (Sodium Chloride Flush 0.9% 10 Ml Syringe) 10 ml IVP 0100,0900,1700 [facility] Last Admin: 09/20/21 00:24 Dose: 10 ml Documented by: Sodium Chloride (Sodium Chloride Flush 0.9% 10 Ml Syringe) 10 ml IVP PRN PRN PRN Reason: NEEDED PER PROVIDER ORDERS Last Admin: 09/19/21 08:37 Dose: 10 ml Documented by: Potassium Chloride [K-Dur] 40 meq PO BID 09/08/21 Diphenoxylate/Atropine [Lomotil] 2.5 mg PO PRN PRN 09/15/21 Objective - Vital Signs/Intake & Output Reviewed Vital Signs: Yes Vital Signs: Vital Signs x48h Temp Pulse Pulse Resp BP Pulse Ox 09/20/21 07:00 120 H 36 H 98/59 L 98 09/20/21 06:00 118 H 37 H 101/62 97 09/20/21 05:04 125 H 09/20/21 05:00 36.5 C 112 H 39 H 103/54 L 98 09/20/21 04:00 36.2 C L 119 H 40 H 97/58 L 100 09/20/21 03:00 120 H 36 H 103/56 L 100 09/20/21 02:00 119 H 33 H 98/59 L 98 09/20/21 00:41 123 H 116/81 H 09/20/21 00:35 97/60 09/20/21 00:30 119 H 95/62 09/20/21 00:27 119 H 102/59 L 09/20/21 00:20 118 H 105/69 09/20/21 00:16 114 H 99/66 09/20/21 00:15 120 H 09/20/21 00:00 119 H 37 H 90/58 L 100 Intake & Output: Intake & Output 09/17/21 09/18/21 09/19/21 09/20/21 23:59 23:59 23:59 23:59 Intake Total 1100 8105.000 1434.167 Output Total 6300 2875 Balance 1100 1805.000 -1440.833 - Objective General Appearance: positive: Alert, Other (Bed, NG still in nose, red hat on, bald, bearded, glasses. Slight tachypnea. Trying to watch TV and concentrate on that he says) Eyes Bilateral: positive: PERRL, EOMI ENT: positive: Dry mucous membranes (By now I think most of this is going to be mouth open breathing as he pants to breathe) Neck: positive: No JVD. negative: Stiff neck Respiratory: positive: Other (Tachypnea, no use of accessory muscles. Laying comfortably black in about 45. He says he does not like to lay flat not because of orthopnea because it just seems to make his belly feel worse and push harder into his chest). negative: Wheezes, Rales, Rhonchi Cardiovascular: positive: Regular rate & rhythm, Tachycardia. negative: Gallop/S4, Friction rub Abdomen: positive: Tenderness (Moderate. Located mid abdomen above the umbilicus and up into the left upper quadrant.), Other (Active bowel sounds. Stool is liquid, yellow. Watery.). negative: Guarding, Rebound Skin: positive: Warm, Dry, Pallor Extremities: positive: Full ROM, No pedal edema (SCDs and KATY hose in place) Neurologic/Psychiatric: positive: Oriented x3, CN's nml (2-12), Motor nml (M oderate generalized weakness. He says he feels like "a limp noodle") - Lab Results Fish Bones: 09/20/21 04:50 09/20/21 04:50 Other Labs: Lab Results x24hrs 09/20/21 09/20/21 09/20/21 Range/Units 04:50 04:50 04:50 WBC 3.2 L (4.8-10.8) x10^3/uL RBC 3.43 L (4.70-6.10) 10^6/uL Hgb 11.7 L (14.0-18.0) g/dL Hct 31.9 L (42.0-52.0) % MCV 93.0 (80.0-94.0) fL MCH 34.1 H (27.0-31.0) pg MCHC 36.7 H (32.0-36.0) g/dL RDW 15.7 H (12.0-15.0) % Plt Count 71 L (130-450) 10^3/uL MPV 10.8 (7.4-11.4) fL Neut # (Auto) Not Reportable Lymph # (Auto) Not Reportable Erie # (Auto) Not Reportable Eos # (Auto) Not Reportable Baso # (Auto) Not Reportable Absolute Nucleated RBC Not Reportable Total Counted 100 Band Neuts % (Manual) 0 (0 - 10) % Abnorm Lymph % (Manual) 0 % Nucleated RBC % Not Reportable Neutrophils # (Manual) 2.6 (1.5-6.6) 10^3/uL Lymphocytes # (Manual) 0.3 L (1.5-3.5) 10^3/uL Monocytes # (Manual) 0.4 (0.0-1.0) 10^3/uL Eosinophils # (Manual) 0.0 (0-0.7) 10^3/uL Basophils # (Manual) 0.0 (0-0.1) 10^3/uL Differential Comment MANUAL DIFFERENTIAL WBC Morphology NORMAL APPEARANCE (NORMAL) Platelet Estimate DECREASED (<130,000) (NORMAL) Platelet Morphology NORMAL APPEARANCE (NORMAL) RBC Morph Micro Appear NORMAL APPEARANCE (NORMAL) VBG pH 7.346 (7.31-7.41) Ionized Calcium 1.17 (1.15-1.33) mmol/L Sodium 131 L (135-145) mmol/L Potassium 3.4 L (3.5-5.0) mmol/L Chloride 103 (101-111) mmol/L Carbon Dioxide 15 L (21-32) mmol/L Anion Gap 13.0 (6-13) BUN 32 H (6-20) mg/dL Creatinine 1.3 H (0.6-1.2) mg/dL Estimated GFR (MDRD) 54 L (>89) Glucose 69 L (70-100) mg/dL Lactic Acid (0.5-2.2) mmol/L Calcium 7.6 L (8.5-10.3) mg/dL Phosphorus 2.5 (2.5-4.6) mg/dL Magnesium (1.7-2.8) mg/dL Troponin I High Sens (2.3-19.7) ng/L Stl C. diff Tox B Gene (NEGATIVE) 09/20/21 09/20/21 09/19/21 Range/Units 02:32 02:32 20:39 WBC (4.8-10.8) x10^3/uL RBC (4.70-6.10) 10^6/uL Hgb (14.0-18.0) g/dL Hct (42.0-52.0) % MCV (80.0-94.0) fL MCH (27.0-31.0) pg MCHC (32.0-36.0) g/dL RDW (12.0-15.0) % Plt Count (130-450) 10^3/uL MPV (7.4-11.4) fL Neut # (Auto) Lymph # (Auto) Erie # (Auto) Eos # (Auto) Baso # (Auto) Absolute Nucleated RBC Total Counted Band Neuts % (Manual) (0 - 10) % Abnorm Lymph % (Manual) % Nucleated RBC % Neutrophils # (Manual) (1.5-6.6) 10^3/uL Lymphocytes # (Manual) (1.5-3.5) 10^3/uL Monocytes # (Manual) (0.0-1.0) 10^3/uL Eosinophils # (Manual) (0-0.7) 10^3/uL Basophils # (Manual) (0-0.1) 10^3/uL Differential Comment WBC Morphology (NORMAL) Platelet Estimate (NORMAL) Platelet Morphology (NORMAL) RBC Morph Micro Appear (NORMAL) VBG pH 7.363 (7.31-7.41) Ionized Calcium 1.17 (1.15-1.33) mmol/L Sodium (135-145) mmol/L Potassium 3.7 3.1 L (3.5-5.0) mmol/L Chloride (101-111) mmol/L Carbon Dioxide (21-32) mmol/L Anion Gap (6-13) BUN (6-20) mg/dL Creatinine (0.6-1.2) mg/dL Estimated GFR (MDRD) (>89) Glucose (70-100) mg/dL Lactic Acid (0.5-2.2) mmol/L Calcium 7.6 L (8.5-10.3) mg/dL Phosphorus 2.2 L (2.5-4.6) mg/dL Magnesium 2.1 (1.7-2.8) mg/dL Troponin I High Sens (2.3-19.7) ng/L Stl C. diff Tox B Gene (NEGATIVE) 09/19/21 09/19/21 09/19/21 Range/Units 20:39 20:39 20:39 WBC (4.8-10.8) x10^3/uL RBC (4.70-6.10) 10^6/uL Hgb (14.0-18.0) g/dL Hct (42.0-52.0) % MCV (80.0-94.0) fL MCH (27.0-31.0) pg MCHC (32.0-36.0) g/dL RDW (12.0-15.0) % Plt Count (130-450) 10^3/uL MPV (7.4-11.4) fL Neut # (Auto) Lymph # (Auto) Erie # (Auto) Eos # (Auto) Baso # (Auto) Absolute Nucleated RBC Total Counted Band Neuts % (Manual) (0 - 10) % Abnorm Lymph % (Manual) % Nucleated RBC % Neutrophils # (Manual) (1.5-6.6) 10^3/uL Lymphocytes # (Manual) (1.5-3.5) 10^3/uL Monocytes # (Manual) (0.0-1.0) 10^3/uL Eosinophils # (Manual) (0-0.7) 10^3/uL Basophils # (Manual) (0-0.1) 10^3/uL Differential Comment WBC Morphology (NORMAL) Platelet Estimate (NORMAL) Platelet Morphology (NORMAL) RBC Morph Micro Appear (NORMAL) VBG pH 7.382 (7.31-7.41) Ionized Calcium 1.13 L (1.15-1.33) mmol/L Sodium (135-145) mmol/L Potassium (3.5-5.0) mmol/L Chloride (101-111) mmol/L Carbon Dioxide (21-32) mmol/L Anion Gap (6-13) BUN (6-20) mg/dL Creatinine (0.6-1.2) mg/dL Estimated GFR (MDRD) (>89) Glucose (70-100) mg/dL Lactic Acid 2.2 (0.5-2.2) mmol/L Calcium (8.5-10.3) mg/dL Phosphorus (2.5-4.6) mg/dL Magnesium (1.7-2.8) mg/dL Troponin I High Sens 56.4 H* (2.3-19.7) ng/L Stl C. diff Tox B Gene (NEGATIVE) 09/19/21 09/19/21 Range/Units 11:50 09:40 WBC (4.8-10.8) x10^3/uL RBC (4.70-6.10) 10^6/uL Hgb (14.0-18.0) g/dL Hct (42.0-52.0) % MCV (80.0-94.0) fL MCH (27.0-31.0) pg MCHC (32.0-36.0) g/dL RDW (12.0-15.0) % Plt Count (130-450) 10^3/uL MPV (7.4-11.4) fL Neut # (Auto) Lymph # (Auto) Erie # (Auto) Eos # (Auto) Baso # (Auto) Absolute Nucleated RBC Total Counted Band Neuts % (Manual) (0 - 10) % Abnorm Lymph % (Manual) % Nucleated RBC % Neutrophils # (Manual) (1.5-6.6) 10^3/uL Lymphocytes # (Manual) (1.5-3.5) 10^3/uL Monocytes # (Manual) (0.0-1.0) 10^3/uL Eosinophils # (Manual) (0-0.7) 10^3/uL Basophils # (Manual) (0-0.1) 10^3/uL Differential Comment WBC Morphology (NORMAL) Platelet Estimate (NORMAL) Platelet Morphology (NORMAL) RBC Morph Micro Appear (NORMAL) VBG pH (7.31-7.41) Ionized Calcium (1.15-1.33) mmol/L Sodium (135-145) mmol/L Potassium (3.5-5.0) mmol/L Chloride (101-111) mmol/L Carbon Dioxide (21-32) mmol/L Anion Gap (6-13) BUN (6-20) mg/dL Creatinine (0.6-1.2) mg/dL Estimated GFR (MDRD) (>89) Glucose (70-100) mg/dL Lactic Acid 5.1 H* (0.5-2.2) mmol/L Calcium (8.5-10.3) mg/dL Phosphorus (2.5-4.6) mg/dL Magnesium (1.7-2.8) mg/dL Troponin I High Sens (2.3-19.7) ng/L Stl C. diff Tox B Gene NEGATIVE (NEGATIVE) ABX Reporting Has patient been on IV antibiotics over the past 48 hours?: No Assessment/Plan - Problem List (1) Adynamic ileus Impression: vs SBO. Day #2 At this point in time he is being treated as if he has ileus. General surgery was consulted and we appreciate their note. They to feel that ileus is most likely the probable problem. We will continue with decompression efforts. Since he still has the NG tube in place, nursing and general surgery will decide what to do today. Nursing says they will clarify communication. Continues to be n.p.o. except for ice chips. Plan: Plain film to see if some of the severe distention has improved. (2) Metabolic acidosis with respiratory alkalosis improving. Conclusion/Plan: Lactic acid lactic acidosis had not been checked in the ER. I ordered and it was 7.6. With hydration, lactic acid was down to 2.2 x 839 last night. He continues to be tachypneic. And carbon dioxide level continues to be 15. Anion gap has closed. I believe that it is the metabolic acidosis that is driving his tachypnea for compensatory respiratory alkalosis. He is not on Metformin. I do not feel he has had any drug overdose such as methyl alcohol. He received 3 L fluid bolus, and then I switched him to 500 cc an hour of lactated Ringer's. This morning he is hypoglycemic. Nursing is suggested D5 with 20. I warned him that this may drive his sodium down and we need to monitor that.I may consider doing a bicarb drip to see if that helps (3) Chemotherapy-induced diarrhea Conclusion/Plan: vs. ileus.He has had symptoms of diarrhea since the beginning of his chemotherapy. So I suspect that chemotherapy is induced diarrhea which in turn has induced dehydration/ileus. He has had bowel movements in the ICU. Stool has been sent off for C. difficile and is negative. Will order stool culture. (4) Chemotherapy induced neutropenia Conclusion/Plan: On admission, ANC was approximately 240. No fever. Chest x-ray clear. CT of chest clear for infiltrate. Urinalysis clear. While abdomen has ileus, there are no peritoneal findings. White cell count has come up to 3.2 this morning. 2.6 neutrophils manual diff erential. Blood cultures done yesterday are negative at 24 hours. No plan for empiric antibiotics at this point. If he spikes a fever, or his abdominal exam changes, those will be added. (5) Hypokalemia Continues, now with hyponatremia on lactated ringers. Conclusion/Plan: He has been receiving continuous K riders since getting to ICU. He is on ICU protocol for nursing replacement. Potassium is 3.4 this morning. Again, we need to monitor sodium to make sure he does not get hyponatremic with a D5 with 20 of potassium.. (6) Adenocarcinoma of rectum, stage 3 Conclusion/Plan: Currently being followed by [facility] oncology. He has just completed cycle three of mFOLFOX. Chemo toxicity being monitored by oncology with last note read from September 08. Patient states he wants to be a full code. (7) SVT (supraventricular tachycardia) Conclusion/Plan: No previous history of cardiac disease. No reports of congestive heart failure. His narrow complex tachycardia was without symptoms and abruptly resolved without an intervention in our part. I suspect with abdominal distention, electrolyte imbalance, dehydration, his electrical conduction system is irritat ed.The first episode of SVT occurred in the ER. He came to ICU in sinus rhythm. He then had another episode of SVT yesterday. Troponins Were trended and indicate demand leak, no true ND. 121 went to 95 which went to 56. Plan: Digoxin was loaded yesterday. Daily maintenance dose started for tomorrow morning. Continue to monitor. Hopefully this will resolve once he is adequately hydrated, abdomen is less distended with the NG tube, and potassium was supplemented. (8) Acute kidney injury improving Conclusion/Plan: due to severe dehydration. CT of abdomen doesn't show obstruction. Creatinine at baseline is 0.8. He was at 2.2 on admission. After aggressive IV hydration, creatinine is 1.7>>1.3 this morning. Plan: Continue to monitor. Avoid nephrotoxic agents.
[2021-09-20] MEDS: ENOXAPARIN 40 MG/0.4 ML SYRINGE SUBQ SCH (08:47)
[2021-09-20] MEDS: D5NS W/20 MEQ KCL 1,000 ML IV SCH ×2 (08:47→17:10)
--- NOTE | 2021-09-20 09:50 | XRAY Report ---
PROCEDURE: Abdomen 1 View X-Ray INDICATIONS: following sbo TECHNIQUE: 1 view of the abdomen were acquired. COMPARISON: Abdomen radiographs dated 09/19/[address] abdomen and pelvis dated 09/18/2021 FINDINGS: Surgical changes and devices: Enteric tube with tip and side-port overlying the left upper quadrant o ivanna the expected location of the stomach. Partially imaged left chest wall Port-A-Cath with tip overl sergei the expected location of the superior cavoatrial junction. Cholecystectomy clip. Interval remova l of Vaz catheter. Bowel: No pneumoperitoneum. Multiple dilated loops of small bowel are again noted. The stomach is de creased in distention from prior examination. There is noted within the left colon and rectum. Soft tissues: No masses; visualized solid organ contours appear normal in size. Pelvic phleboliths. Subtle density at the left lung base likely representing atelectasis. Bones: Chronic compression deformity of L2 again noted. No acute osseous abnormality. Mild degenerati ve changes of the hips. IMPRESSION: Enteric tube with tip and side-port overlying the left upper quadrant over the expected location of t he stomach. Multiple dilated loops of small bowel concerning for small bowel obstruction, grossly unchanged. Reviewed by: Duncan Mayorga DO on 09/20/2021 8:49 AM BEAR Approved by: Duncan Mayorga DO on 09/20/2021 8:49 AM BEAR Station ID: [id number]
--- NOTE | 2021-09-20 11:23 | XRAY Report ---
PROCEDURE: Chest 1 View X-Ray INDICATIONS: worsening SOB TECHNIQUE: One view of the chest was acquired. COMPARISON: Same day abdomen radiographs as well as chest x-rays dated 09/19/2020 FINDINGS: Surgical changes and devices: Left chest wall nish catheter with the tip overlying the expected loca tion of the superior cavoatrial junction. Enteric tube is noted coursing out of the field of view lik viky within the stomach as noted on comparison exam.. Lungs and pleura: No pleural effusions or pneumothorax. Subtle basilar opacities which may represent atelectasis. No pneumothorax or pleural effusion. Mediastinum: Mediastinal contours appear normal. Heart size is normal. Bones and chest wall: No suspicious bony lesions. Overlying soft tissues appear unremarkable. IMPRESSION: Basilar opacities appear somewhat linear and likely represent atelectasis. Developing consolidation o r completely excluded. Enteric tube coursing out of the field of view over the left upper quadrant likely within the abdomen . Left chest wall Port-A-Cath unchanged. Reviewed by: Duncan Mayorga DO on 09/20/2021 10:22 AM BEAR Approved by: Duncan Mayorga DO on 09/20/2021 10:22 AM BEAR Station ID: [id number]
[2021-09-20 12:12] LABS: ABG BASE EXCESS -7.8 mmol/L (-2.0-3.0); ABG HCO3 14.6 mmol/L (22.0-26.0); ABG OXYGEN SATURATION 97 % (94-98); ABG PH 7.43 (7.35-7.45); ABG PO2 84 mmHg (80-100); ABG TCO2 15.3 MMOL/L (21.0-29.0); ALLEN TEST POSITIVE
[2021-09-20 12:16] LABS: ABG PCO2 23 mmHg (34-45)
--- NOTE | 2021-09-20 14:40 | PROVIDER PROGRESS NOTE ---
Subjective - General Admit Date: 09/18/21 Procedure Date: 08/03/21 Post Op Days: 48 - Review of Systems General: positive: Weakness, Malaise. negative: Fever, Chills, Appetite HEENT: positive: No symptoms Pulmonary: positive: No symptoms Cardiovascular: positive: No symptoms. negative: Chest pain, Palpitations Gastrointestinal: positive: Abdominal pain (Slight on right side but better than yesterday.) Psychiatric: positive: Depression Objective - Patient Data Reviewed Vital Signs: Yes Vital Signs: Vital Signs x48h Temp Pulse Pulse Resp BP Pulse Ox 09/20/21 14:29 120 H 09/20/21 14:00 120 H 37 H 105/64 99 09/20/21 13:00 37.2 C 119 H 46 H 112/61 98 09/20/21 12:00 37.2 C 124 H 38 H 112/61 100 09/20/21 11:00 37.0 C 122 H 37 H 104/68 100 09/20/21 10:00 115 H 36 H 104/62 98 09/20/21 09:00 118 H 37 H 107/58 L 98 09/20/21 07:58 97.8 C H 124 H 35 H 109/58 L 98 09/20/21 07:00 120 H 36 H 98/59 L 98 Weight: Weight 09/18/21 09/19/21 09/20/21 23:59 23:59 23:59 Weight (kg) 74.4 kg 77 kg 74.5 kg Intake & Output: Intake and Output Totals x24h 09/18/21 09/19/21 09/20/21 23:59 23:59 23:59 Intake Total 1100 8105.000 2267.500 Output Total 6300 3680 Balance 1100 1805.000 -1412.500 - Lab Results Lab Results: 09/20/21 04:50 09/20/21 09:00 Other Lab Results: Lab Results x24hrs 09/20/21 09/20/21 09/20/21 Range/Units 12:00 09:00 09:00 WBC (4.8-10.8) x10^3/uL RBC (4.70-6.10) 10^6/uL Hgb (14.0-18.0) g/dL Hct (42.0-52.0) % MCV (80.0-94.0) fL MCH (27.0-31.0) pg MCHC (32.0-36.0) g/dL RDW (12.0-15.0) % Plt Count (130-450) 10^3/uL MPV (7.4-11.4) fL Neut # (Auto) Lymph # (Auto) Putnam # (Auto) Eos # (Auto) Baso # (Auto) Absolute Nucleated RBC Total Counted Band Neuts % (Manual) (0 - 10) % Abnorm Lymph % (Manual) % Nucleated RBC % Neutrophils # (Manual) (1.5-6.6) 10^3/uL Lymphocytes # (Manual) (1.5-3.5) 10^3/uL Monocytes # (Manual) (0.0-1.0) 10^3/uL Eosinophils # (Manual) (0-0.7) 10^3/uL Basophils # (Manual) (0-0.1) 10^3/uL Differential Comment WBC Morphology (NORMAL) Platelet Estimate (NORMAL) Platelet Morphology (NORMAL) RBC Morph Micro Appear (NORMAL) Bld Gas Analysis Time 1212 Sample Site RIGHT RADIAL ABG pH 7.43 (7.35-7.45) ABG pCO2 23 L* (34-45) mmHg ABG pO2 84 (80-100) mmHg ABG HCO3 14.6 L (22.0-26.0) mmol/L ABG Total CO2 15.3 L (21.0-29.0) MMOL/L ABG O2 Saturation 97 (94-98) % ABG Base Excess -7.8 L (-2.0-3.0) mmol/L Pineda Test POSITIVE VBG pH (7.31-7.41) Ionized Calcium (1.15-1.33) mmol/L Room Air YES Sodium (135-145) mmol/L Potassium 3.9 (3.5-5.0) mmol/L Chloride (101-111) mmol/L Carbon Dioxide (21-32) mmol/L Anion Gap (6-13) BUN (6-20) mg/dL Creatinine (0.6-1.2) mg/dL Estimated GFR (MDRD) (>89) Glucose (70-100) mg/dL Lactic Acid (0.5-2.2) mmol/L Calcium (8.5-10.3) mg/dL Phosphorus (2.5-4.6) mg/dL Magnesium 2.0 (1.7-2.8) mg/dL Troponin I High Sens (2.3-19.7) ng/L 09/20/21 09/20/21 09/20/21 Range/Units 04:50 04:50 04:50 WBC 3.2 L (4.8-10.8) x10^3/uL RBC 3.43 L (4.70-6.10) 10^6/uL Hgb 11.7 L (14.0-18.0) g/dL Hct 31.9 L (42.0-52.0) % MCV 93.0 (80.0-94.0) fL MCH 34.1 H (27.0-31.0) pg MCHC 36.7 H (32.0-36.0) g/dL RDW 15.7 H (12.0-15.0) % Plt Count 71 L (130-450) 10^3/uL MPV 10.8 (7.4-11.4) fL Neut # (Auto) Not Reportable Lymph # (Auto) Not Reportable Putnam # (Auto) Not Reportable Eos # (Auto) Not Reportable Baso # (Auto) Not Reportable Absolute Nucleated RBC Not Reportable Total Counted 100 Band Neuts % (Manual) 0 (0 - 10) % Abnorm Lymph % (Manual) 0 % Nucleated RBC % Not Reportable Neutrophils # (Manual) 2.6 (1.5-6.6) 10^3/uL Lymphocytes # (Manual) 0.3 L (1.5-3.5) 10^3/uL Monocytes # (Manual) 0.4 (0.0-1.0) 10^3/uL Eosinophils # (Manual) 0.0 (0-0.7) 10^3/uL Basophils # (Manual) 0.0 (0-0.1) 10^3/uL Differential Comment MANUAL DIFFERENTIAL WBC Morphology NORMAL APPEARANCE (NORMAL) Platelet Estimate DECREASED (<130,000) (NORMAL) Platelet Morphology NORMAL APPEARANCE (NORMAL) RBC Morph Micro Appear NORMAL APPEARANCE (NORMAL) Bld Gas Analysis Time Sample Site ABG pH (7.35-7.45) ABG pCO2 (34-45) mmHg ABG pO2 (80-100) mmHg ABG HCO3 (22.0-26.0) mmol/L ABG Total CO2 (21.0-29.0) MMOL/L ABG O2 Saturation (94-98) % ABG Base Excess (-2.0-3.0) mmol/L Pineda Test VBG pH 7.346 (7.31-7.41) Ionized Calcium 1.17 (1.15-1.33) mmol/L Room Air Sodium 131 L (135-145) mmol/L Potassium 3.4 L (3.5-5.0) mmol/L Chloride 103 (101-111) mmol/L Carbon Dioxide 15 L (21-32) mmol/L Anion Gap 13.0 (6-13) BUN 32 H (6-20) mg/dL Creatinine 1.3 H (0.6-1.2) mg/dL Estimated GFR (MDRD) 54 L (>89) Glucose 69 L (70-100) mg/dL Lactic Acid (0.5-2.2) mmol/L Calcium 7.6 L (8.5-10.3) mg/dL Phosphorus 2.5 (2.5-4.6) mg/dL Magnesium (1.7-2.8) mg/dL Troponin I High Sens (2.3-19.7) ng/L 09/20/21 09/20/21 09/19/21 Range/Units 02:32 02:32 20:39 WBC (4.8-10.8) x10^3/uL RBC (4.70-6.10) 10^6/uL Hgb (14.0-18.0) g/dL Hct (42.0-52.0) % MCV (80.0-94.0) fL MCH (27.0-31.0) pg MCHC (32.0-36.0) g/dL RDW (12.0-15.0) % Plt Count (130-450) 10^3/uL MPV (7.4-11.4) fL Neut # (Auto) Lymph # (Auto) Putnam # (Auto) Eos # (Auto) Baso # (Auto) Absolute Nucleated RBC Total Counted Band Neuts % (Manual) (0 - 10) % Abnorm Lymph % (Manual) % Nucleated RBC % Neutrophils # (Manual) (1.5-6.6) 10^3/uL Lymphocytes # (Manual) (1.5-3.5) 10^3/uL Monocytes # (Manual) (0.0-1.0) 10^3/uL Eosinophils # (Manual) (0-0.7) 10^3/uL Basophils # (Manual) (0-0.1) 10^3/uL Differential Comment WBC Morphology (NORMAL) Platelet Estimate (NORMAL) Platelet Morphology (NORMAL) RBC Morph Micro Appear (NORMAL) Bld Gas Analysis Time Sample Site ABG pH (7.35-7.45) ABG pCO2 (34-45) mmHg ABG pO2 (80-100) mmHg ABG HCO3 (22.0-26.0) mmol/L ABG Total CO2 (21.0-29.0) MMOL/L ABG O2 Saturation (94-98) % ABG Base Excess (-2.0-3.0) mmol/L Pineda Test VBG pH 7.363 (7.31-7.41) Ionized Calcium 1.17 (1.15-1.33) mmol/L Room Air Sodium (135-145) mmol/L Potassium 3.7 3.1 L (3.5-5.0) mmol/L Chloride (101-111) mmol/L Carbon Dioxide (21-32) mmol/L Anion Gap (6-13) BUN (6-20) mg/dL Creatinine (0.6-1.2) mg/dL Estimated GFR (MDRD) (>89) Glucose (70-100) mg/dL Lactic Acid (0.5-2.2) mmol/L Calcium 7.6 L (8.5-10.3) mg/dL Phosphorus 2.2 L (2.5-4.6) mg/dL Magnesium 2.1 (1.7-2.8) mg/dL Troponin I High Sens (2.3-19.7) ng/L 09/19/21 09/19/21 09/19/21 Range/Units 20:39 20:39 20:39 WBC (4.8-10.8) x10^3/uL RBC (4.70-6.10) 10^6/uL Hgb (14.0-18.0) g/dL Hct (42.0-52.0) % MCV (80.0-94.0) fL MCH (27.0-31.0) pg MCHC (32.0-36.0) g/dL RDW (12.0-15.0) % Plt Count (130-450) 10^3/uL MPV (7.4-11.4) fL Neut # (Auto) Lymph # (Auto) Putnam # (Auto) Eos # (Auto) Baso # (Auto) Absolute Nucleated RBC Total Counted Band Neuts % (Manual) (0 - 10) % Abnorm Lymph % (Manual) % Nucleated RBC % Neutrophils # (Manual) (1.5-6.6) 10^3/uL Lymphocytes # (Manual) (1.5-3.5) 10^3/uL Monocytes # (Manual) (0.0-1.0) 10^3/uL Eosinophils # (Manual) (0-0.7) 10^3/uL Basophils # (Manual) (0-0.1) 10^3/uL Differential Comment WBC Morphology (NORMAL) Platelet Estimate (NORMAL) Platelet Morphology (NORMAL) RBC Morph Micro Appear (NORMAL) Bld Gas Analysis Time Sample Site ABG pH (7.35-7.45) ABG pCO2 (34-45) mmHg ABG pO2 (80-100) mmHg ABG HCO3 (22.0-26.0) mmol/L ABG Total CO2 (21.0-29.0) MMOL/L ABG O2 Saturation (94-98) % ABG Base Excess (-2.0-3.0) mmol/L Pineda Test VBG pH 7.382 (7.31-7.41) Ionized Calcium 1.13 L (1.15-1.33) mmol/L Room Air Sodium (135-145) mmol/L Potassium (3.5-5.0) mmol/L Chloride (101-111) mmol/L Carbon Dioxide (21-32) mmol/L Anion Gap (6-13) BUN (6-20) mg/dL Creatinine (0.6-1.2) mg/dL Estimated GFR (MDRD) (>89) Glucose (70-100) mg/dL Lactic Acid 2.2 (0.5-2.2) mmol/L Calcium (8.5-10.3) mg/dL Phosphorus (2.5-4.6) mg/dL Magnesium (1.7-2.8) mg/dL Troponin I High Sens 56.4 H* (2.3-19.7) ng/L - Imaging Results Radiology Imaging: positive: Final report received - Current Medications Current Medications: Current Medications Generic Name Dose Route Start Last Admin Trade Name Freq PRN Reason Stop Dose Admin Enoxaparin Sodium 40 mg 09/19/21 09:00 09/20/21 08:47 Enoxaparin 40 Mg/0.4 Ml Syringe SUBQ 40 mg DAILY SPENCER Administration Potassium Chloride/Dextrose/Sod Cl 1,000 mls @ 125 mls/hr 09/20/21 08:00 09/20/21 08:47 D5ns W/20 Meq Kcl IV 125 mls/hr .Q8H SPENCER Administration Morphine Sulfate 2 mg 09/18/21 22:41 09/19/21 13:20 Morphine 2 Mg/Ml Carpuject IVP 1 mg Q2HR PRN Administration Pain 8 to 10 Oxycodone HCl 5 mg 09/18/21 22:41 09/19/21 16:40 Oxycodone 5 Mg Tablet PO 5 mg Q4HR PRN Administration Pain 5 to 7 Pantoprazole Sodium 40 mg 09/19/21 07:00 09/20/21 06:00 Pantoprazole 40 Mg Vial IVP 40 mg QDAC SPENCER Administration Sodium Chloride 10 ml 09/19/21 01:00 09/20/21 08:47 Sodium Chloride Flush 0.9% 10 Ml Syringe IVP 10 ml 0100,0900,1700 SPENCER Administration Sodium Chloride 10 ml 09/18/21 22:41 09/19/21 08:37 Sodium Chloride Flush 0.9% 10 Ml Syringe IVP 10 ml PRN PRN Administration NEEDED PER PROVIDER ORDERS - Physical Exam General Appearance: positive: No acute distress, Alert Eyes Bilateral: positive: No lid inflammation, No scleral icterus ENT: positive: Dry mucous membranes Neck: positive: Trachea midline Respiratory: positive: Chest non-tender, No respiratory distress, Breath sounds nml Cardiovascular: positive: Regular rate & rhythm Abdomen: positive: Tenderness (Very mild on right without peritoneal findings.), Abnml bowel sounds (Slightly decreased.) Skin: positive: Dry, Pallor (Slight.). negative: Cyanosis, Diaphoresis Extremities: positive: Non-tender. negative: Calf tenderness, Stanford's sign/cords Neurologic/Psychiatric: positive: Oriented x3, Depressed mood/affect (Slightly.) ABX Reporting Has patient been on IV antibiotics over the past 48 hours?: Yes Impression/Plan - Problem List Problem List: Hospital day 2 1) Ileus versus SBO Some bowel function but recent films show improvement but still c/w SBO. Continue IVF and sips and chips for comfort. Does not appear to be infected but neutropenia makes this determination a bit harder. Consider repeat CT scan looking for cause. I am not sure that patient would mount immune response with neutropenia if he had appendicitis for example (not saying he has appendicitis - just saying that the presentation may be not typical). 2) Activity Will get him up in chair and hopefully increased activity will encourage better bowel function. Will continue to follow through resolution. Thank you.
[2021-09-20] MEDS: MORPHINE 2 MG/ML CARPUJECT IVP PRN (17:34)
[2021-09-21] MEDS: MORPHINE 2 MG/ML CARPUJECT IVP PRN (00:20)
[2021-09-21] MEDS: SODIUM CHLORIDE FLUSH 0.9% 10 ML SYRINGE IVP SCH ×3 (00:20→16:38)
[2021-09-21] MEDS: D5NS W/20 MEQ KCL 1,000 ML IV SCH ×4 (00:20→23:56)
[2021-09-21 05:58] LABS: EOSINOPHILS % (AUTO) 0.2 %; HCT - HEMATOCRIT 33.7 % (42.0-52.0); HGB - HEMOGLOBIN 12.3 g/dL (14.0-18.0); LYMPHOCYTES % (AUTO) 4.2 %; MEAN CORPUSCULAR HEMOGLOBIN 33.6 pg (27.0-31.0); MEAN CORPUSCULAR HGB CONC 36.5 g/dL (32.0-36.0); MEAN CORPUSCULAR VOLUME 92.1 fL (80.0-94.0); MEAN PLATELET VOLUME 11.6 fL (7.4-11.4); MONOCYTES % (AUTO) 12.2 %; NEUTROPHILS % (AUTO) 81.9 %; PLT - PLATELET COUNT 62 10^3/uL (130-450); RED BLOOD COUNT 3.66 10^6/uL (4.70-6.10); RED CELL DISTRIBUTION WIDTH 16.2 % (12.0-15.0); WHITE BLOOD COUNT 5.3 x10^3/uL (4.8-10.8)
[2021-09-21 06:02] LABS: CALCIUM, IONIZED 1.23 mmol/L (1.15-1.33); VBG PH 7.354 (7.31-7.41)
[2021-09-21 06:10] LABS: ABNORMAL LYMPHS % (MANUAL) 0 %
[2021-09-21] MEDS: PANTOPRAZOLE 40 MG VIAL IVP SCH (06:17)
[2021-09-21 06:19] LABS: DIGOXIN 0.8 ng/mL
[2021-09-21 06:22] LABS: BAND NEUTROPHILS % (MANUAL) 8 %; DIFFERENTIAL COMMENT MANUAL DIFFERENTIAL; LYMPHOCYTES # (MANUAL) 0.4 10^3/uL (1.5-3.5); LYMPHOCYTES % (MANUAL) 7 %; MONOCYTES # (MANUAL) 0.7 10^3/uL (0.0-1.0); NEUTROPHILS # (MANUAL) 4.2 10^3/uL (1.5-6.6); PLATELET ESTIMATE, MANUAL DECREASED (<130,000) (NORMAL); PLATELET MORPHOLOGY NORMAL APPEARANCE (NORMAL); RBC MORPHOLOGY (MULTIPLE) NORMAL APPEARANCE (NORMAL); WBC MORPHOLOGY (MULTIPLE) NORMAL APPEARANCE (NORMAL)
[2021-09-21 06:32] LABS: BUN - BLOOD UREA NITROGEN 26 mg/dL (6-20); CALCIUM 7.9 mg/dL (8.5-10.3); CARBON DIOXIDE - CO2 18 mmol/L (21-32); CHLORIDE 112 mmol/L (101-111); GFR - MDRD 73 (>89); GLUCOSE 139 mg/dL (70-100); POTASSIUM 3.8 mmol/L (3.5-5.0); SODIUM 138 mmol/L (135-145)
[2021-09-21 06:33] LABS: PHOSPHORUS < 1.0 mg/dL (2.5-4.6)
[2021-09-21] MEDS: POTASSIUM PHOSPHATE 15 MMOL in SODIUM CHLORIDE 0.9% 250 ML IV SCH ×2 (08:09→12:19)
[2021-09-21] MEDS: ENOXAPARIN 40 MG/0.4 ML SYRINGE SUBQ SCH (08:52)
[2021-09-21] MEDS: DIGOXIN 500 MCG/2 ML AMP IVP SCH (08:53)
--- NOTE | 2021-09-21 12:28 | PROVIDER PROGRESS NOTE ---
Subjective - General Admit Date: 09/18/21 Procedure Date: 08/03/21 Post Op Days: 50 - Review of Systems General: positive: Weakness, Malaise. negative: Fever, Chills, Appetite HEENT: positive: No symptoms Pulmonary: positive: No symptoms Cardiovascular: positive: No symptoms. negative: Chest pain, Palpitations Gastrointestinal: positive: Abdominal pain (Slight on right side but better than yesterday.) Psychiatric: positive: Depression Objective - Patient Data Reviewed Vital Signs: Yes Vital Signs: Vital Signs x48h Temp Pulse Resp BP Pulse Ox 09/21/21 11:00 115 H 39 H 112/68 97 09/21/21 10:00 107 H 35 H 102/59 L 97 09/21/21 09:00 112 H 35 H 107/57 L 98 09/21/21 08:00 36.5 C 109 H 35 H 97/54 L 98 09/21/21 07:00 115 H 40 H 90/64 98 09/21/21 06:00 114 H 48 H 90/58 L 100 09/21/21 05:00 115 H 40 H 108/64 98 Weight: Weight 09/19/21 09/20/21 09/21/21 23:59 23:59 23:59 Weight (kg) 77 kg 74.5 kg 74 kg Intake & Output: Intake and Output Totals x24h 09/19/21 09/20/21 09/21/21 23:59 23:59 23:59 Intake Total 8105.000 3367.500 2609.167 Output Total 6300 4820 3300 Balance 1805.000 -1452.500 -690.833 - Lab Results Lab Results: 09/22/21 04:35 09/22/21 04:35 Other Lab Results: Lab Results x24hrs 09/21/21 09/21/21 09/21/21 Range/Units 05:25 05:25 05:25 WBC (4.8-10.8) x10^3/uL RBC (4.70-6.10) 10^6/uL Hgb (14.0-18.0) g/dL Hct (42.0-52.0) % MCV (80.0-94.0) fL MCH (27.0-31.0) pg MCHC (32.0-36.0) g/dL RDW (12.0-15.0) % Plt Count (130-450) 10^3/uL MPV (7.4-11.4) fL Neut # (Auto) Lymph # (Auto) Prentiss # (Auto) Eos # (Auto) Baso # (Auto) Absolute Nucleated RBC Total Counted Band Neuts % (Manual) (0 - 10) % Abnorm Lymph % (Manual) % Nucleated RBC % Neutrophils # (Manual) (1.5-6.6) 10^3/uL Lymphocytes # (Manual) (1.5-3.5) 10^3/uL Monocytes # (Manual) (0.0-1.0) 10^3/uL Eosinophils # (Manual) (0-0.7) 10^3/uL Basophils # (Manual) (0-0.1) 10^3/uL Differential Comment WBC Morphology (NORMAL) Platelet Estimate (NORMAL) Platelet Morphology (NORMAL) RBC Morph Micro Appear (NORMAL) VBG pH 7.354 (7.31-7.41) Ionized Calcium 1.23 (1.15-1.33) mmol/L Sodium 138 (135-145) mmol/L Potassium 3.8 (3.5-5.0) mmol/L Chloride 112 H (101-111) mmol/L Carbon Dioxide 18 L (21-32) mmol/L Anion Gap 8.0 (6-13) BUN 26 H (6-20) mg/dL Creatinine 1.0 (0.6-1.2) mg/dL Estimated GFR (MDRD) 73 L (>89) Glucose 139 H (70-100) mg/dL Calcium 7.9 L (8.5-10.3) mg/dL Phosphorus < 1.0 L* (2.5-4.6) mg/dL Magnesium (1.7-2.8) mg/dL Last Dose Date 09/20 Last Dose Time 1401 Digoxin 0.8 ng/mL 09/21/21 09/21/21 Range/Units 05:25 05:20 WBC 5.3 (4.8-10.8) x10^3/uL RBC 3.66 L (4.70-6.10) 10^6/uL Hgb 12.3 L (14.0-18.0) g/dL Hct 33.7 L (42.0-52.0) % MCV 92.1 (80.0-94.0) fL MCH 33.6 H (27.0-31.0) pg MCHC 36.5 H (32.0-36.0) g/dL RDW 16.2 H (12.0-15.0) % Plt Count 62 L (130-450) 10^3/uL MPV 11.6 H (7.4-11.4) fL Neut # (Auto) Not Reportable Lymph # (Auto) Not Reportable Prentiss # (Auto) Not Reportable Eos # (Auto) Not Reportable Baso # (Auto) Not Reportable Absolute Nucleated RBC Not Reportable Total Counted 100 Band Neuts % (Manual) 8 (0 - 10) % Abnorm Lymph % (Manual) 0 % Nucleated RBC % Not Reportable Neutrophils # (Manual) 4.2 (1.5-6.6) 10^3/uL Lymphocytes # (Manual) 0.4 L (1.5-3.5) 10^3/uL Monocytes # (Manual) 0.7 (0.0-1.0) 10^3/uL Eosinophils # (Manual) 0.0 (0-0.7) 10^3/uL Basophils # (Manual) 0.0 (0-0.1) 10^3/uL Differential Comment MANUAL DIFFERENTIAL WBC Morphology NORMAL APPEARANCE (NORMAL) Platelet Estimate DECREASED (<130,000) (NORMAL) Platelet Morphology NORMAL APPEARANCE (NORMAL) RBC Morph Micro Appear NORMAL APPEARANCE (NORMAL) VBG pH (7.31-7.41) Ionized Calcium (1.15-1.33) mmol/L Sodium (135-145) mmol/L Potassium (3.5-5.0) mmol/L Chloride (101-111) mmol/L Carbon Dioxide (21-32) mmol/L Anion Gap (6-13) BUN (6-20) mg/dL Creatinine (0.6-1.2) mg/dL Estimated GFR (MDRD) (>89) Glucose (70-100) mg/dL Calcium (8.5-10.3) mg/dL Phosphorus (2.5-4.6) mg/dL Magnesium 2.2 (1.7-2.8) mg/dL Last Dose Date Last Dose Time Digoxin ng/mL - Current Medications Current Medications: Current Medications Generic Name Dose Route Start Last Admin Trade Name Freq PRN Reason Stop Dose Admin Digoxin 125 mcg 09/21/21 09:00 09/21/21 08:53 Digoxin 500 Mcg/2 Ml Amp IVP 125 mcg DAILY SPENCER Administration Enoxaparin Sodium 40 mg 09/19/21 09:00 09/21/21 08:52 Enoxaparin 40 Mg/0.4 Ml Syringe SUBQ 40 mg DAILY SPENCER Administration Potassium Chloride/Dextrose/Sod Cl 1,000 mls @ 125 mls/hr 09/20/21 08:00 09/21/21 12:00 D5ns W/20 Meq Kcl IV 125 mls/hr .Q8H SPENCER Infusion Potassium Phosphate 15 mmol/ 255 mls @ 63 mls/hr 09/21/21 07:00 09/21/21 12:19 Sodium Chloride IV 09/21/21 14:59 63 mls/hr Q4H SPENCER Administration Protocol Morphine Sulfate 2 mg 09/18/21 22:41 09/21/21 00:20 Morphine 2 Mg/Ml Carpuject IVP 2 mg Q2HR PRN Administration Pain 8 to 10 Oxycodone HCl 5 mg 09/18/21 22:41 09/19/21 16:40 Oxycodone 5 Mg Tablet PO 5 mg Q4HR PRN Administration Pain 5 to 7 Pantoprazole Sodium 40 mg 09/19/21 07:00 09/21/21 06:17 Pantoprazole 40 Mg Vial IVP 40 mg QDAC SPENCER Administration Sodium Chloride 10 ml 09/19/21 01:00 09/21/21 09:01 Sodium Chloride Flush 0.9% 10 Ml Syringe IVP 10 ml 0100,0900,1700 SPENCER Administration Sodium Chloride 10 ml 09/18/21 22:41 09/19/21 08:37 Sodium Chloride Flush 0.9% 10 Ml Syringe IVP 10 ml PRN PRN Administration NEEDED PER PROVIDER ORDERS - Physical Exam General Appearance: positive: No acute distress (Sleeping.) Eyes Bilateral: positive: No lid inflammation, Conjunctivae nml, No scleral icterus ENT: positive: Dry mucous membranes Neck: positive: Trachea midline. negative: Tracheal deviation Respiratory: positive: Chest non-tender, No respiratory distress, Breath sounds nml, Other (Still tachypneic.) Cardiovascular: positive: Regular rate & rhythm Abdomen: positive: Tenderness (RIGHT sided - minimal.) Extremities: positive: Non-tender Neurologic/Psychiatric: positive: Oriented x3 ABX Reporting Has patient been on IV antibiotics over the past 48 hours?: Yes Impression/Plan - Problem List Problem List: Neutropenic enterocolitis. I reviewed the CT scan with the radiologist in person because the PACS system is still down and I cannot see the films on this computer. Targeted exam of the RIGHT lower quadrant suggests terminal ileal wall thickness (consistent with a typhlitis (AKA neutropenic enterocolitis)). The treatment is exactly what we are doing. IVF, bowel rest and serial exam looking for improvement. Surgery is absolutely not indicated at this time. Can clamp NG tube and if patient tolerates can try feeding tonight. I am concerned about persistent tachycardia/tachypnea. PE? Pneumonia?
--- NOTE | 2021-09-21 22:32 | PROVIDER PROGRESS NOTE ---
Subjective - Prog Note Date Prog Note Date: 09/21/21 Prog Note Time: 22:45 - Subjective Subjective: All of his clinical parameters with vital signs, labs have improved. But he still has tremendous amount of distention. NG continues to drain quite a bit of gastric fluid. General surgery clamp the NG in an attempt to see if the patient to be fed. But he had a 500 cc residual and assess the NG was resumed to low intermittent suction. He is having liquid stools that are yellowish and liquid. No blood. He has not had any fevers, and blood pressure has been improving. However he continues to be tachypneic in the 30s. Heart rate is 114 and up to 120. He desperately wants to go home. He is just so miserable. Current Medications - Current Medications Current Medications: Active Medications Acetaminophen (Acetaminophen 325 Mg Tablet) 650 mg PO Q4HR PRN PRN Reason: Pain 1 to 4 Albuterol (Albuterol Neb 2.5 Mg/3 Ml) 2.5 mg INH Q4HR PRN PRN Reason: Wheezing Digoxin (Digoxin 500 Mcg/2 Ml Amp) 125 mcg IVP DAILY [facility] Last Admin: 09/21/21 08:53 Dose: 125 mcg Documented by: Enoxaparin Sodium (Enoxaparin 40 Mg/0.4 Ml Syringe) 40 mg SUBQ DAILY [facility] Last Admin: 09/21/21 08:52 Dose: 40 mg Documented by: Potassium Chloride/Dextrose/Sod Cl (D5ns W/20 Meq Kcl) 1,000 mls @ 125 mls/hr IV .Q8H [facility] Last Infusion: 09/21/21 19:00 Dose: 125 mls/hr Documented by: Mineral Oil (Min Oil/Dimethicon/Coconut Oil 92 Gm Tube) 1 applic TOP PRN PRN PRN Reason: Skin Care Morphine Sulfate (Morphine 2 Mg/Ml Carpuject) 2 mg IVP Q2HR PRN PRN Reason: Pain 8 to 10 Last Admin: 09/21/21 00:20 Dose: 2 mg Documented by: Ondansetron HCl (Ondansetron Odt 4 Mg Tablet) 4 mg TL Q6HR PRN PRN Reason: Nausea / Vomiting Ondansetron HCl (Ondansetron 4 Mg/2 Ml Vial) 4 mg IVP Q4HR PRN PRN Reason: Nausea / Vomiting Oxycodone HCl (Oxycodone 5 Mg Tablet) 5 mg PO Q4HR PRN PRN Reason: Pain 5 to 7 Last Admin: 09/19/21 16:40 Dose: 5 mg Documented by: Pantoprazole Sodium (Pantoprazole 40 Mg Vial) 40 mg IVP QDAC [facility] Last Admin: 09/21/21 06:17 Dose: 40 mg Documented by: Sodium Chloride (Sodium Chloride Flush 0.9% 10 Ml Syringe) 10 ml IVP 0100,0900, 1700 [facility] Last Admin: 09/21/21 16:38 Dose: 10 ml Documented by: Sodium Chloride (Sodium Chloride Flush 0.9% 10 Ml Syringe) 10 ml IVP PRN PRN PRN Reason: NEEDED PER PROVIDER ORDERS Last Admin: 09/19/21 08:37 Dose: 10 ml Documented by: Potassium Chloride [K-Dur] 40 meq PO BID 09/08/21 Diphenoxylate/Atropine [Lomotil] 2.5 mg PO PRN PRN 09/15/21 Objective - Vital Signs/Intake & Output Reviewed Vital Signs: Yes Vital Signs: Vital Signs x48h Temp Pulse Resp BP Pulse Ox 09/21/21 21:00 110 H 36 H 102/64 09/21/21 20:00 114 H 34 H 94/76 92 09/21/21 19:59 36.6 C 09/21/21 19:00 115 H 35 H 107/63 92 09/21/21 18:00 122 H 44 H 108/72 97 09/21/21 17:00 36.6 C 120 H 36 H 118/79 96 09/21/21 16:00 119 H 38 H 108/73 98 09/21/21 15:00 122 H 41 H 101/60 89 L Intake & Output: Intake & Output 09/18/21 09/19/21 09/20/21 09/21/21 23:59 23:59 23:59 23:59 Intake Total 1100 8105.000 3367.500 3682.917 Output Total 6300 4820 5230 Balance 1100 1805.000 -1452.500 -1547.083 - Objective General Appearance: positive: No acute distress, Alert, Other (Sitting up in bed. Said that he sat up in the chair for a few hours today and that made him feel better. NG in place.) Eyes Bilateral: positive: PERRL, EOMI ENT: positive: No signs of dehydration, Other (Nasal voice because of the NG in place. He says the NG really bothers him. It affects his swallowing and it affects his voice) Neck: positive: No JVD. negative: Stiff neck Respiratory: positive: Other (Continues to have fast shallow respiration in the 30s). negative: Wheezes, Rales, Rhonchi Cardiovascular: positive: Regular rate & rhythm, Tachycardia. negative: Gal lop/S4, Friction rub Abdomen: positive: Tenderness (Generalized.), Other (Distended and tympanic. But much less distended that when he came into the hospital.). negative: Gu arding, Rebound Skin: positive: Warm, Dry, Other (The deep alarming pallor of his lips, conjunctiva, and skin have improved tremendously) Extremities: positive: Full ROM, No pedal edema Neurologic/Psychiatric: positive: Oriented x3, CN's nml (2-12), Motor nml, Weakness (Mild and generalized) - Lab Results Fish Bones: 09/21/21 05:25 09/21/21 05:25 Other Labs: Lab Results x24hrs 09/21/21 09/21/21 09/21/21 Range/Units 05:25 05:25 05:25 WBC (4.8-10.8) x10^3/uL RBC (4.70-6.10) 10^6/uL Hgb (14.0-18.0) g/dL Hct (42.0-52.0) % MCV (80.0-94.0) fL MCH (27.0-31.0) pg MCHC (32.0-36.0) g/dL RDW (12.0-15.0) % Plt Count (130-450) 10^3/uL MPV (7.4-11.4) fL Neut # (Auto) Lymph # (Auto) [place] # (Auto) Eos # (Auto) Baso # (Auto) Absolute Nucleated RBC Total Counted Band Neuts % (Manual) (0 - 10) % Abnorm Lymph % (Manual) % Nucleated RBC % Neutrophils # (Manual) (1.5-6.6) 10^3/uL Lymphocytes # (Manual) (1.5-3.5) 10^3/uL Monocytes # (Manual) (0.0-1.0) 10^3/uL Eosinophils # (Manual) (0-0.7) 10^3/uL Basophils # (Manual) (0-0.1) 10^3/uL Differential Comment WBC Morphology (NORMAL) Platelet Estimate (NORMAL) Platelet Morphology (NORMAL) RBC Morph Micro Appear (NORMAL) VBG pH 7.354 (7.31-7.41) Ionized Calcium 1.23 (1.15-1.33) mmol/L Sodium 138 (135-145) mmol/L Potassium 3.8 (3.5-5.0) mmol/L Chloride 112 H (101-111) mmol/L Carbon Dioxide 18 L (21-32) mmol/L Anion Gap 8.0 (6-13) BUN 26 H (6-20) mg/dL Creatinine 1.0 (0.6-1.2) mg/dL Estimated GFR (MDRD) 73 L (>89) Glucose 139 H (70-100) mg/dL Calcium 7.9 L (8.5-10.3) mg/dL Phosphorus < 1.0 L* (2.5-4.6) mg/dL Magnesium (1.7-2.8) mg/dL Last Dose Date 09/20 Last Dose Time 1401 Digoxin 0.8 ng/mL 09/21/21 09/21/21 Range/Units 05:25 05:20 WBC 5.3 (4.8-10.8) x10^3/uL RBC 3.66 L (4.70-6.10) 10^6/uL Hgb 12.3 L (14.0-18.0) g/dL Hct 33.7 L (42.0-52.0) % MCV 92.1 (80.0-94.0) fL MCH 33.6 H (27.0-31.0) pg MCHC 36.5 H (32.0-36.0) g/dL RDW 16.2 H (12.0-15.0) % Plt Count 62 L (130-450) 10^3/uL MPV 11.6 H (7.4-11.4) fL Neut # (Auto) Not Reportable Lymph # (Auto) Not Reportable [place] # (Auto) Not Reportable Eos # (Auto) Not Reportable Baso # (Auto) Not Reportable Absolute Nucleated RBC Not Reportable Total Counted 100 Band Neuts % (Manual) 8 (0 - 10) % Abnorm Lymph % (Manual) 0 % Nucleated RBC % Not Reportable Neutrophils # (Manual) 4.2 (1.5-6.6) 10^3/uL Lymphocytes # (Manual) 0.4 L (1.5-3.5) 10^3/uL Monocytes # (Manual) 0.7 (0.0-1.0) 10^3/uL Eosinophils # (Manual) 0.0 (0-0.7) 10^3/uL Basophils # (Manual) 0.0 (0-0.1) 10^3/uL Differential Comment MANUAL DIFFERENTIAL WBC Morphology NORMAL APPEARANCE (NORMAL) Platelet Estimate DECREASED (<130,000) (NORMAL) Platelet Morphology NORMAL APPEARANCE (NORMAL) RBC Morph Micro Appear NORMAL APPEARANCE (NORMAL) VBG pH (7.31-7.41) Ionized Calcium (1.15-1.33) mmol/L Sodium (135-145) mmol/L Potassium (3.5-5.0) mmol/L Chloride (101-111) mmol/L Carbon Dioxide (21-32) mmol/L Anion Gap (6-13) BUN (6-20) mg/dL Creatinine (0.6-1.2) mg/dL Estimated GFR (MDRD) (>89) Glucose (70-100) mg/dL Calcium (8.5-10.3) mg/dL Phosphorus (2.5-4.6) mg/dL Magnesium 2.2 (1.7-2.8) mg/dL Last Dose Date Last Dose Time Digoxin ng/mL Assessment/Plan - Problem List (1) Neutropenic colitis Impression: When he was admitted, he did not give us a history of abdominal pain. Nor did he have vomiting. Just diarrhea ever since he had his chemotherapy. We treated him as ileus from dehydration or small bowel obstruction. General surgery carefully reviewed the CT of the abdomen today and feels the patient most likely has typhlitis, and neutropenic colitis. We will continue with decompression efforts. NG was looked at yesterday morning, and the NG tube is in place. Did not have to be removed a second time. No longer coiled. We tried to feed him today by clamping the tube, and checking residuals. He had a 500 cc residual so we really could not feed him. Patient is very disappointed. He keeps on saying "I really want to go home". Plan: Continue NG decompression, supportive care with IV fluids, electrolyte replacement. Wait for the colitis to resolve and then start feeding him. (2) Metabolic acidosis with respiratory alkalosis improving. Conclusion/Plan: Lactic acid had not been checked in the ER so I ordered when he was on Med Surg and it was 7.6. With hydration, lactic acid was down to 2.2 @ 8:39 pm 09/19. He continues to be tachypneic. And carbon dioxide level continues to be low @ 18. Anion gap has closed. I believe that it is the metabolic acidosis that is driving his tachypnea for compensatory respiratory alkalosis. He is not on Metformin. I do not feel he has had any drug overdose such as methyl alcohol. He received 3 L fluid bolus, and then I switched him to 500 cc an hour of lactated Ringer's. then 09/20 am he was hypoglycemic. Nursing is suggested D5 with 20. I warned them that this may drive his sodium down and we need to monitor that. Today his sodium is 138, glucose normal but he has hyperchloremia. Continue IVF and support. (3) Chemotherapy induced neutropenia Conclusion/Plan: On admission, ANC was approximately 240. No fever. Chest x-ray clear. CT of chest clear for infiltrate. Urinalysis clear. While abdomen has ileus, there are no peritoneal findings. White cell count has come up to 3.2>>5.0 this morning. Blood cultures done yesterday are negative at 24 hours. No plan for empiric antibiotics at this point. If he spikes a fever, or his abdominal exam changes, those will be added. (4) Hypokalemia resolved, then with hyponatremia on lactated ringers and that has resolved as well. Conclusion/Plan: He received continuous K riders since getting to ICU. He is on ICU protocol for nursing replacement. today he has had severe hypophosphatemia and that was replaced. No check after that. I have spoken to fast food shift lead RN and she will check his level with replacment protocol. (5) Adenocarcinoma of rectum, stage 3 Conclusion/Plan: Currently being followed by [facility] oncology. He has just completed cycle three of mFOLFOX. Chemo toxicity being monitored by oncology with last note read from September 08. Patient states he wants to be a full code. (6) SVT (supraventricular tachycardia) Conclusion/Plan: No previous history of cardiac disease. No reports of congestive heart failure. His narrow complex tachycardia was without symptoms and abruptly resolved without an intervention in our part. I suspect with abdominal distention, electrolyte imbalance, dehydration, his electrical conduction system is irritated.The first episode of SVT occurred in the ER. He came to ICU in sinus rhythm. He then had another episode of SVT yesterday. Troponins Were trended and indicate demand leak, no true ND. 121 went to 95 which went to 56. Plan: Digoxin was loaded 09/19. Daily maintenance dose started for this morning. Continue to monitor. Hopefully this will resolve once he is adequately hydrated, abdomen is less distended with the NG tube, and potassium was supplemented. (7) Acute kidney injury resolved. Conclusion/Plan: due to severe dehydration. CT of abdomen doesn't show obstruction. Creatinine at baseline is 0.8. He was at 2.2 on admission. After aggressive IV hydration, creatinine is 1.7>>1.3>>1.0 this morning. Plan: Continue to monitor. Avoid nephrotoxic agents.
[2021-09-21] MEDS ORDERED: POTASSIUM PHOSPHATE 21 MMOL in SODIUM CHLORIDE 0.9% 250 ML IV ONE (23:23)
[2021-09-22 05:06] LABS: BASOPHILS % (AUTO) 1.5 %; EOSINOPHILS % (AUTO) 0.2 %; HCT - HEMATOCRIT 35.5 % (42.0-52.0); HGB - HEMOGLOBIN 12.5 g/dL (14.0-18.0); LYMPHOCYTES % (AUTO) 5.1 %; MEAN CORPUSCULAR HEMOGLOBIN 32.8 pg (27.0-31.0); MEAN CORPUSCULAR HGB CONC 35.2 g/dL (32.0-36.0); MEAN CORPUSCULAR VOLUME 93.2 fL (80.0-94.0); MEAN PLATELET VOLUME 12.1 fL (7.4-11.4); MONOCYTES % (AUTO) 11.3 %; NEUTROPHILS % (AUTO) 80.7 %; PLT - PLATELET COUNT 55 10^3/uL (130-450); RED BLOOD COUNT 3.81 10^6/uL (4.70-6.10); RED CELL DISTRIBUTION WIDTH 17.2 % (12.0-15.0); WHITE BLOOD COUNT 5.9 x10^3/uL (4.8-10.8)
[2021-09-22 05:11] LABS: ABNORMAL LYMPHS % (MANUAL) 0 %
[2021-09-22 05:12] LABS: CALCIUM, IONIZED 1.14 mmol/L (1.15-1.33); VBG PH 7.39 (7.31-7.41)
[2021-09-22 05:26] LABS: CALCIUM 7.7 mg/dL (8.5-10.3); CREATININE 1.1 mg/dL (0.6-1.2); PHOSPHORUS 2.8 mg/dL (2.5-4.6); POTASSIUM 4.5 mmol/L (3.5-5.0)
[2021-09-22 05:33] LABS: BAND NEUTROPHILS % (MANUAL) 9 %; LYMPHOCYTES # (MANUAL) 0.4 10^3/uL (1.5-3.5); LYMPHOCYTES % (MANUAL) 6 %; MONOCYTES # (MANUAL) 0.6 10^3/uL (0.0-1.0); NEUTROPHILS # (MANUAL) 4.9 10^3/uL (1.5-6.6); PLATELET ESTIMATE, MANUAL DECREASED (<130,000) (NORMAL); PLATELET MORPHOLOGY NORMAL APPEARANCE (NORMAL); RBC MORPHOLOGY (MULTIPLE) NORMAL APPEARANCE (NORMAL)
[2021-09-22 05:34] LABS: DIFFERENTIAL COMMENT MANUAL DIFFERENTIAL; WBC MORPHOLOGY (MULTIPLE) NORMAL APPEARANCE (NORMAL)
[2021-09-22] MEDS: PANTOPRAZOLE 40 MG VIAL IVP SCH (07:04)
[2021-09-22] MEDS: SODIUM CHLORIDE FLUSH 0.9% 10 ML SYRINGE IVP PRN ×2 (07:30→17:14)
[2021-09-22] MEDS: SODIUM CHLORIDE FLUSH 0.9% 10 ML SYRINGE IVP SCH ×3 (07:57→16:34)
[2021-09-22] MEDS: D5NS W/20 MEQ KCL 1,000 ML IV SCH ×2 (07:59→16:15)
[2021-09-22] MEDS: ENOXAPARIN 40 MG/0.4 ML SYRINGE SUBQ SCH (08:25)
[2021-09-22] MEDS: DIGOXIN 500 MCG/2 ML AMP IVP SCH (08:31)
[2021-09-22] MEDS ORDERED: POTASSIUM PHOSPHATE 15 MMOL in SODIUM CHLORIDE 0.9% 250 ML IV ONE (09:00)
--- NOTE | 2021-09-22 18:53 | PROVIDER PROGRESS NOTE ---
Subjective - General Admit Date: 09/18/21 - Review of Systems General: positive: Weakness, Appetite. negative: Fever, Chills HEENT: positive: No symptoms Pulmonary: positive: No symptoms, Shortness of breath, Cough Cardiovascular: positive: No symptoms. negative: Chest pain, Palpitations Gastrointestinal: negative: Nausea, Vomiting, Difficulty swallowing Skin: positive: No symptoms Psychiatric: positive: Depression Objective - Patient Data Reviewed Vital Signs: Yes Vital Signs: Vital Signs x48h Temp Pulse Pulse Pulse Resp BP BP 09/22/21 18:30 36.6 C 09/22/21 18:00 127 H 38 H 108/79 09/22/21 17:00 128 H 44 H 105/73 09/22/21 16:00 125 H 39 H 114/84 H 09/22/21 15:57 36.4 C L 09/22/21 15:00 125 H 37 H 99/74 09/22/21 14:00 128 H 29 H 105/71 09/22/21 13:00 132 H 28 H 122/71 09/22/21 12:00 128 H 43 H 106/78 09/22/21 11:30 135 H 123 H 120/75 09/22/21 11:00 121 H 36 H 105/66 BP Pulse Ox 09/22/21 18:30 09/22/21 18:00 98 09/22/21 17:00 98 09/22/21 16:00 97 09/22/21 15:57 09/22/21 15:00 98 09/22/21 14:00 91 L 09/22/21 13:00 92 09/22/21 12:00 100 09/22/21 11:30 105/66 09/22/21 11:00 98 Weight: Weight 09/20/21 09/21/21 09/22/21 23:59 23:59 23:59 Weight (kg) 74.5 kg 74 kg 73.5 kg Intake & Output: Intake and Output Totals x24h 09/20/21 09/21/21 09/22/21 23:59 23:59 23:59 Intake Total 3367.500 4299.584 3922 Output Total 4820 5360 3000 Balance -7362.500 -1060.416 922 - Lab Results Lab Results: 09/22/21 04:35 09/22/21 04:35 Other Lab Results: Lab Results x24hrs 09/22/21 09/22/21 09/22/21 Range/Units 17:11 07:50 07:50 WBC (4.8-10.8) x10^3/uL RBC (4.70-6.10) 10^6/uL Hgb (14.0-18.0) g/dL Hct (42.0-52.0) % MCV (80.0-94.0) fL MCH (27.0-31.0) pg MCHC (32.0-36.0) g/dL RDW (12.0-15.0) % Plt Count (130-450) 10^3/uL MPV (7.4-11.4) fL Neut # (Auto) Lymph # (Auto) [place] # (Auto) Eos # (Auto) Baso # (Auto) Absolute Nucleated RBC Total Counted Band Neuts % (Manual) (0 - 10) % Abnorm Lymph % (Manual) % Nucleated RBC % Neutrophils # (Manual) (1.5-6.6) 10^3/uL Lymphocytes # (Manual) (1.5-3.5) 10^3/uL Monocytes # (Manual) (0.0-1.0) 10^3/uL Eosinophils # (Manual) (0-0.7) 10^3/uL Basophils # (Manual) (0-0.1) 10^3/uL Differential Comment WBC Morphology (NORMAL) Platelet Estimate (NORMAL) Platelet Morphology (NORMAL) RBC Morph Micro Appear (NORMAL) VBG pH (7.31-7.41) Ionized Calcium (1.15-1.33) mmol/L Sodium (135-145) mmol/L Potassium (3.5-5.0) mmol/L Chloride (101-111) mmol/L Carbon Dioxide (21-32) mmol/L Anion Gap (6-13) BUN (6-20) mg/dL Creatinine (0.6-1.2) mg/dL Estimated GFR (MDRD) (>89) Glucose (70-100) mg/dL Calcium (8.5-10.3) mg/dL Phosphorus 2.6 1.9 L (2.5-4.6) mg/dL Magnesium 2.1 (1.7-2.8) mg/dL Ref Lab Test Result 09/22/21 09/22/21 09/22/21 Range/Units 04:35 04:35 04:35 WBC 5.9 (4.8-10.8) x10^3/uL RBC 3.81 L (4.70-6.10) 10^6/uL Hgb 12.5 L (14.0-18.0) g/dL Hct 35.5 L (42.0-52.0) % MCV 93.2 (80.0-94.0) fL MCH 32.8 H (27.0-31.0) pg MCHC 35.2 (32.0-36.0) g/dL RDW 17.2 H (12.0-15.0) % Plt Count 55 L (130-450) 10^3/uL MPV 12.1 H (7.4-11.4) fL Neut # (Auto) Not Reportable Lymph # (Auto) Not Reportable [place] # (Auto) Not Reportable Eos # (Auto) Not Reportable Baso # (Auto) Not Reportable Absolute Nucleated RBC Not Reportable Total Counted 100 Band Neuts % (Manual) 9 (0 - 10) % Abnorm Lymph % (Manual) 0 % Nucleated RBC % Not Reportable Neutrophils # (Manual) 4.9 (1.5-6.6) 10^3/uL Lymphocytes # (Manual) 0.4 L (1.5-3.5) 10^3/uL Monocytes # (Manual) 0.6 (0.0-1.0) 10^3/uL Eosinophils # (Manual) 0.0 (0-0.7) 10^3/uL Basophils # (Manual) 0.0 (0-0.1) 10^3/uL Differential Comment MANUAL DIFFERENTIAL WBC Morphology NORMAL APPEARANCE (NORMAL) Platelet Estimate DECREASED (<130,000) (NORMAL) Platelet Morphology NORMAL APPEARANCE (NORMAL) RBC Morph Micro Appear NORMAL APPEARANCE (NORMAL) VBG pH 7.390 (7.31-7.41) Ionized Calcium 1.14 L (1.15-1.33) mmol/L Sodium 145 (135-145) mmol/L Potassium 4.5 (3.5-5.0) mmol/L Chloride 119 H (101-111) mmol/L Carbon Dioxide 17 L (21-32) mmol/L Anion Gap 9.0 (6-13) BUN 28 H (6-20) mg/dL Creatinine 1.1 (0.6-1.2) mg/dL Estimated GFR (MDRD) 65 L (>89) Glucose 131 H (70-100) mg/dL Calcium 7.7 L (8.5-10.3) mg/dL Phosphorus 2.8 (2.5-4.6) mg/dL Magnesium (1.7-2.8) mg/dL Ref Lab Test Result 09/21/21 09/19/21 Range/Units 22:46 11:50 WBC (4.8-10.8) x10^3/uL RBC (4.70-6.10) 10^6/uL Hgb (14.0-18.0) g/dL Hct (42.0-52.0) % MCV (80.0-94.0) fL MCH (27.0-31.0) pg MCHC (32.0-36.0) g/dL RDW (12.0-15.0) % Plt Count (130-450) 10^3/uL MPV (7.4-11.4) fL Neut # (Auto) Lymph # (Auto) [place] # (Auto) Eos # (Auto) Baso # (Auto) Absolute Nucleated RBC Total Counted Band Neuts % (Manual) (0 - 10) % Abnorm Lymph % (Manual) % Nucleated RBC % Neutrophils # (Manual) (1.5-6.6) 10^3/uL Lymphocytes # (Manual) (1.5-3.5) 10^3/uL Monocytes # (Manual) (0.0-1.0) 10^3/uL Eosinophils # (Manual) (0-0.7) 10^3/uL Basophils # (Manual) (0-0.1) 10^3/uL Differential Comment WBC Morphology (NORMAL) Platelet Estimate (NORMAL) Platelet Morphology (NORMAL) RBC Morph Micro Appear (NORMAL) VBG pH (7.31-7.41) Ionized Calcium (1.15-1.33) mmol/L Sodium (135-145) mmol/L Potassium (3.5-5.0) mmol/L Chloride (101-111) mmol/L Carbon Dioxide (21-32) mmol/L Anion Gap (6-13) BUN (6-20) mg/dL Creatinine (0.6-1.2) mg/dL Estimated GFR (MDRD) (>89) Glucose (70-100) mg/dL Calcium (8.5-10.3) mg/dL Phosphorus 1.2 L (2.5-4.6) mg/dL Magnesium (1.7-2.8) mg/dL Ref Lab Test Result REPORT - Current Medications Current Medications: Current Medications Generic Name Dose Route Start Last Admin Trade Name Freq PRN Reason Stop Dose Admin Digoxin 125 mcg 09/21/21 09:00 09/22/21 08:31 Digoxin 500 Mcg/2 Ml Amp IVP 125 mcg DAILY [facility] Administration Enoxaparin Sodium 40 mg 09/19/21 09:00 09/22/21 08:25 Enoxaparin 40 Mg/0.4 Ml Syringe SUBQ Not Given DAILY [facility] Potassium Chloride/Dextrose/Sod Cl 1,000 mls @ 125 mls/hr 09/20/21 08:00 09/22/21 16:15 D5ns W/20 Meq Kcl IV 125 mls/hr .Q8H [facility] Administration Morphine Sulfate 2 mg 09/18/21 22:41 09/21/21 00:20 Morphine 2 Mg/Ml Carpuject IVP 2 mg Q2HR PRN Administration Pain 8 to 10 Oxycodone HCl 5 mg 09/18/21 22:41 09/19/21 16:40 Oxycodone 5 Mg Tablet PO 5 mg Q4HR PRN Administration Pain 5 to 7 Pantoprazole Sodium 40 mg 09/19/21 07:00 09/22/21 07:04 Pantoprazole 40 Mg Vial IVP 40 mg QDAC [facility] Administration Sodium Chloride 10 ml 09/19/21 01:00 09/22/21 16:34 Sodium Chloride Flush 0.9% 10 Ml Syringe IVP 20 ml 0100,0900,1700 [facility] Administration Sodium Chloride 10 ml 09/18/21 22:41 09/22/21 17:14 Sodium Chloride Flush 0.9% 10 Ml Syringe IVP 30 ml PRN PRN Administration NEEDED PER PROVIDER ORDERS - Physical Exam General Appearance: positive: No acute distress, Other (Eating quite well.) Eyes Bilateral: positive: No lid inflammation, Conjunctivae nml, No scleral icterus ENT: positive: Dry mucous membranes Neck: positive: Trachea midline. negative: Tracheal deviation Respiratory: positive: Chest non-tender, Other (Very fine crackles bilaterally.) Cardiovascular: positive: Tachycardia Abdomen: positive: Abnml bowel sounds (Slightly decreased.). negative: Tenderness (Certainly much better than yesterday.) Skin: positive: Color nml Extremities: positive: Non-tender. negative: Stanford's sign/cords Neurologic/Psychiatric: positive: Oriented x3, Sensation nml, Mood/affect nml (I don't know about normal but markedly improved from yesterday.) ABX Reporting Has patient been on IV antibiotics over the past 48 hours?: Yes Impression/Plan - Problem List Problem List: Neutropenic enterocolitis (AKA typhlitis) Patient has tolerated having NG out and is being fed and is doing very well on his tray. I am involved in the patient's care in a supportive role ensuring that if the patient's bowels do not improve and surgery is required then I am aware. Tachycardia and tachypnea The patient has had a respiratory alkalosis as is evidenced by his pH was above 7.40. Would check his A-a gradient because with his neutropenic status I am concerned about the development of pneumonia. Another probability is PE (hypercoagulable state with his diagnosis of anorectal cancer currently undergoing chemotherapy). This would be consistent with his tachycardia and tachypnea. The diagnoses that I am not hanging my hat on include pneumothorax, asthma or COPD exacerbation.
--- NOTE | 2021-09-22 20:41 | PROVIDER PROGRESS NOTE ---
Assessment/Plan - Problem List (1) Small bowel obstruction Assessment/Plan: Abdominal x-ray done this evening showed multiple loops of dilated small bowel which appeared stable to slightly progressed and remain consistent with small bowel obstruction. NG tube replacement was ordered. We will make the patient NPO. General surgery following. (2) SVT (supraventricular tachycardia) Assessment/Plan: Patient has been persistently tachycardic with heart rate in the 120s. A diltiazem drip was ordered. Will titrate to effect. (3) Neutropenia Qualifiers: Neutropenia type: other Qualified Code(s): D70.8 - Other neutropenia Assessment/Plan: Improved/resolved. Likely due to patient's chemotherapy. There has been no signs of infection on CT of the chest, urinalysis, chest x-ray and blood cultures have been no growth to date. We will continue to hold off on antibiotics. (4) Adenocarcinoma of rectum, stage 3 Assessment/Plan: Currently being seen by [facility] oncology. Patient has completed 3 cycles of mFOLFOX He is expected to following up with his oncologist upon discharge from the hospital (6) Neutropenic colitis Assessment/Plan: NG tube replaced due to worsening findings on abdominal x-ray. Patient currently has no fever. We will continue to hold off on antibiotics. (7) Chemotherapy-induced diarrhea Assessment/Plan: Thought to be related to colitis induced by Chemotherapy. However patient currently has small bowel obstruction. NG tube in place. NPO. IV hydration. - Current Meds Current Meds: Current Medications Generic Name Dose Route Start Last Admin Trade Name Freq PRN Reason Stop Dose Admin Digoxin 125 mcg 09/21/21 09:00 09/22/21 08:31 Digoxin 500 Mcg/2 Ml Amp IVP 125 mcg DAILY SPENCER Administration Enoxaparin Sodium 40 mg 09/19/21 09:00 09/22/21 08:25 Enoxaparin 40 Mg/0.4 Ml Syringe SUBQ Not Given DAILY SPENCER Potassium Chloride/Dextrose/Sod Cl 1,000 mls @ 125 mls/hr 09/20/21 08:00 09/22/21 16:15 D5ns W/20 Meq Kcl IV 125 mls/hr .Q8H SPENCER Administration Morphine Sulfate 2 mg 09/18/21 22:41 09/21/21 00:20 Morphine 2 Mg/Ml Carpuject IVP 2 mg Q2HR PRN Administration Pain 8 to 10 Oxycodone HCl 5 mg 09/18/21 22:41 09/19/21 16:40 Oxycodone 5 Mg Tablet PO 5 mg Q4HR PRN Administration Pain 5 to 7 Pantoprazole Sodium 40 mg 09/19/21 07:00 09/22/21 07:04 Pantoprazole 40 Mg Vial IVP 40 mg QDAC SPENCER Administration Sodium Chloride 10 ml 09/19/21 01:00 09/22/21 16:34 Sodium Chloride Flush 0.9% 10 Ml Syringe IVP 20 ml 0100,0900,1700 SPENCER Administration Sodium Chloride 10 ml 09/18/21 22:41 09/22/21 17:14 Sodium Chloride Flush 0.9% 10 Ml Syringe IVP 30 ml PRN PRN Administration NEEDED PER PROVIDER ORDERS - Lab Result Fish Bone Diagrams: 09/22/21 04:35 09/22/21 04:35 - Additional Planning My Orders: My Active Orders 09/22/21 20:39 Mag Hydrox/Al Hydrox/Simeth [Mylanta Plus] 30 ml PO Q4HR PRN Subjective - Subjective Patient Reports: Other (Resting in bed. He appears uncomfortable. Abdomen is somewhat bloated and tympanic. He complains of heartburn. Patient is also very tachycardic and somewhat tachypneic. He denied chest pain or difficulty breathing.) Objective Vital Signs: Vital Signs - 24 hr 09/21/21 09/21/21 09/21/21 21:00 22:00 23:00 Temperature Heart Rate Heart Rate [ Activity] Heart Rate [ 110 H 118 H 123 H Monitoring electrodes] Heart Rate [ Supine] Respiratory 36 H 36 H 37 H Rate Blood Pressure [Activity] Blood Pressure 102/64 110/69 109/65 [Right Brachial artery] Blood Pressure [Supine] O2 Saturation 95 95 09/22/21 09/22/21 09/22/21 00:00 01:00 02:00 Temperature 36.6 C Heart Rate Heart Rate [ Activity] Heart Rate [ 122 H 126 H 129 H Monitoring electrodes] Heart Rate [ Supine] Respiratory 41 H 45 H 42 H Rate Blood Pressure [Activity] Blood Pressure 107/58 L 111/63 97/70 [Right Brachial artery] Blood Pressure [Supine] O2 Saturation 100 95 96 09/22/21 09/22/21 09/22/21 04:00 05:00 06:00 Temperature 36.7 C Heart Rate Heart Rate [ Activity] Heart Rate [ 116 H 115 H 123 H Monitoring electrodes] Heart Rate [ Supine] Respiratory 35 H 31 H 41 H Rate Blood Pressure [Activity] Blood Pressure 86/72 L 92/72 95/66 [Right Brachial artery] Blood Pressure [Supine] O2 Saturation 98 62 L 98 09/22/21 09/22/21 09/22/21 07:00 08:00 08:31 Temperature 36.4 C L Heart Rate 122 H Heart Rate [ Activity] Heart Rate [ 121 H 119 H Monitoring electrodes] Heart Rate [ Supine] Respiratory 43 H 35 H Rate Blood Pressure [Activity] Blood Pressure 96/73 96/68 [Right Brachial artery] Blood Pressure [Supine] O2 Saturation 97 97 09/22/21 09/22/21 09/22/21 09:00 10:00 11:00 Temperature 36.4 C L Heart Rate Heart Rate [ Activity] Heart Rate [ 120 H 119 H 121 H Monitoring electrodes] Heart Rate [ Supine] Respiratory 39 H 40 H 36 H Rate Blood Pressure [Activity] Blood Pressure 116/74 107/70 105/66 [Right Brachial artery] Blood Pressure [Supine] O2 Saturation 97 98 98 09/22/21 09/22/21 09/22/21 11:30 12:00 13:00 Temperature Heart Rate Heart Rate [ 135 H Activity] Heart Rate [ 128 H 132 H Monitoring electrodes] Heart Rate [ 123 H Supine] Respiratory 43 H 28 H Rate Blood Pressure 120/75 [Activity] Blood Pressure 106/78 122/71 [Right Brachial artery] Blood Pressure 105/66 [Supine] O2 Saturation 100 92 09/22/21 09/22/21 09/22/21 14:00 15:00 15:57 Temperature 36.4 C L Heart Rate Heart Rate [ Activity] Heart Rate [ 128 H 125 H Monitoring electrodes] Heart Rate [ Supine] Respiratory 29 H 37 H Rate Blood Pressure [Activity] Blood Pressure 105/71 99/74 [Right Brachial artery] Blood Pressure [Supine] O2 Saturation 91 L 98 09/22/21 09/22/21 09/22/21 16:00 17:00 18:00 Temperature Heart Rate Heart Rate [ Activity] Heart Rate [ 125 H 128 H 127 H Monitoring electrodes] Heart Rate [ Supine] Respiratory 39 H 44 H 38 H Rate Blood Pressure [Activity] Blood Pressure 114/84 H 105/73 108/79 [Right Brachial artery] Blood Pressure [Supine] O2 Saturation 97 98 98 09/22/21 09/22/21 09/22/21 18:30 19:00 20:00 Temperature 36.6 C 36.6 C Heart Rate Heart Rate [ Activity] Heart Rate [ 125 H 128 H Monitoring electrodes] Heart Rate [ Supine] Respiratory 44 H 33 H Rate Blood Pressure [Activity] Blood Pressure 125/74 128/71 [Right Brachial artery] Blood Pressure [Supine] O2 Saturation 98 97 Oxygen O2 Source Room air I&O (Last 24 Hrs): Intake and Output Totals x24h 09/20/21 09/21/21 09/22/21 23:59 23:59 23:59 Intake Total 3367.500 4299.584 3922 Output Total 4841 5360 3050 Balance -1452.500 -1060.416 872 General: Alert, Oriented x3, Mild distress, Moderate distress, Other HEENT: PERRLA, EOMI Neck: Supple, No JVD Neuro: Alert, Non Focal Cardiovascular: No murmurs, Other (tachycardic) Respiratory: Other (tachypnea, no wheezing rhonchi or crackles) Extremities: No clubbing, No edema, No tenderness/swelling Skin: No rashes, No breakdown, No significant lesion - Results Results: Laboratory Results WBC 5.9 x10^3/uL (4.8-10.8) 09/22/21 04:35 RBC 3.81 10^6/uL (4.70-6.10) L 09/22/21 04:35 Hgb 12.5 g/dL (14.0-18.0) L 09/22/21 04:35 Hct 35.5 % (42.0-52.0) L 09/22/21 04:35 MCV 93.2 fL (80.0-94.0) 09/22/21 04:35 MCH 32.8 pg (27.0-31.0) H 09/22/21 04:35 MCHC 35.2 g/dL (32.0-36.0) 09/22/21 04:35 RDW 17.2 % (12.0-15.0) H 09/22/21 04:35 Plt Count 55 10^3/uL (130-450) L 09/22/21 04:35 MPV 12.1 fL (7.4-11.4) H 09/22/21 04:35 Neut # (Auto) Not Reportable 09/22/21 04:35 Lymph # (Auto) Not Reportable 09/22/21 04:35 Stearns # (Auto) Not Reportable 09/22/21 04:35 Eos # (Auto) Not Reportable 09/22/21 04:35 Baso # (Auto) Not Reportable 09/22/21 04:35 Absolute Nucleated RBC Not Reportable 09/22/21 04:35 Total Counted 100 09/22/21 04:35 Band Neuts % (Manual) 9 % (0-10) 09/22/21 04:35 Abnorm Lymph % (Manual) 0 % 09/22/21 04:35 Nucleated RBC % Not Reportable 09/22/21 04:35 Neutrophils # (Manual) 4.9 10^3/uL (1.5-6.6) 09/22/21 04:35 Lymphocytes # (Manual) 0.4 10^3/uL (1.5-3.5) L 09/22/21 04:35 Monocytes # (Manual) 0.6 10^3/uL (0.0-1.0) 09/22/21 04:35 Eosinophils # (Manual) 0.0 10^3/uL (0-0.7) 09/22/21 04:35 Basophils # (Manual) 0.0 10^3/uL (0-0.1) 09/22/21 04:35 Differential Comment MANUAL DIFFERENTIAL 09/22/21 04:35 Manual Slide Review Indicated 09/18/21 20:50 WBC Morphology NORMAL APPEARANCE (NORMAL) 09/22/21 04:35 Platelet Estimate DECREASED (<130,000) (NORMAL) 09/22/21 04:35 Platelet Morphology NORMAL APPEARANCE (NORMAL) 09/22/21 04:35 RBC Morph Micro Appear NORMAL APPEARANCE (NORMAL) 09/22/21 04:35 D-Dimer 925.3 ng/mL (200.0-255.0) H 09/18/21 20:50 Bld Gas Analysis Time 1212 09/20/21 12:00 Sample Site RIGHT RADIAL 09/20/21 12:00 ABG pH 7.43 (7.35-7.45) 09/20/21 12:00 ABG pCO2 23 mmHg (34-45) L* 09/20/21 12:00 ABG pO2 84 mmHg (80-100) 09/20/21 12:00 ABG HCO3 14.6 mmol/L (22.0-26.0) L 09/20/21 12:00 ABG Total CO2 15.3 MMOL/L (21.0-29.0) L 09/20/21 12:00 ABG O2 Saturation 97 % (94-98) 09/20/21 12:00 ABG Base Excess -7.8 mmol/L (-2.0-3.0) L 09/20/21 12:00 Pineda Test POSITIVE 09/20/21 12:00 VBG pH 7.390 (7.31-7.41) 09/22/21 04:35 VBG pCO2 35.2 mmHg (41-51) L 09/18/21 20:50 VBG pO2 21.5 mmHg (25-47) L 09/18/21 20:50 VBG HCO3 12.6 mmol/L (23-28) L 09/18/21 20:50 VBG Total CO2 13.7 mmol/L (24-29) L 09/18/21 20:50 VBG O2 Saturation 34.5 % (60-80) L 09/18/21 20:50 VBG Base Excess -14.8 mmol/L (-2 - +2) L 09/18/21 20:50 Ionized Calcium 1.14 mmol/L (1.15-1.33) L 09/22/21 04:35 Room Air YES 09/20/21 12:00 O2 Delivery Device BiPAP 09/18/21 21:15 FiO2 100.00 09/18/21 21:15 EPAP 5 cmH2O 09/18/21 21:15 IPAP 12 cmH2O 09/18/21 21:15 Sodium 145 mmol/L (135-145) 09/22/21 04:35 Potassium 4.5 mmol/L (3.5-5.0) 09/22/21 04:35 Chloride 119 mmol/L (101-111) H 09/22/21 04:35 Carbon Dioxide 17 mmol/L (21-32) L 09/22/21 04:35 Anion Gap 9.0 (6-13) 09/22/21 04:35 BUN 28 mg/dL (6-20) H 09/22/21 04:35 Creatinine 1.1 mg/dL (0.6-1.2) 09/22/21 04:35 Estimated GFR (MDRD) 65 (>89) L 09/22/21 04:35 Glucose 131 mg/dL (70-100) H 09/22/21 04:35 Lactic Acid 2.2 mmol/L (0.5-2.2) 09/19/21 20:39 Calcium 7.7 mg/dL (8.5-10.3) L 09/22/21 04:35 Phosphorus 2.6 mg/dL (2.5-4.6) 09/22/21 17:11 Magnesium 2.1 mg/dL (1.7-2.8) 09/22/21 07:50 Total Bilirubin 1.5 mg/dL (0.2-1.0) H 09/18/21 20:50 AST < 10 IU/L (10-42) L 09/18/21 20:50 ALT < 10 IU/L (10-60) L 09/18/21 20:50 Alkaline Phosphatase 58 IU/L (42-121) 09/18/21 20:50 Troponin I High Sens 56.4 ng/L (2.3-19.7) H* 09/19/21 20:39 B-Natriuretic Peptide 149 pg/mL (5-100) H 09/18/21 20:50 Total Protein 6.2 g/dL (6.7-8.2) L 09/18/21 20:50 Albumin 2.7 g/dL (3.2-5.5) L 09/18/21 20:50 Globulin 3.5 g/dL (2.1-4.2) 09/18/21 20:50 Albumin/Globulin Ratio 0.8 (1.0-2.2) L 09/18/21 20:50 Lipase 17 U/L (22-51) L 09/18/21 20:50 Nasal Adenovirus (PCR) NOT DETECTED 09/18/21 21:15 Nasal B. parapertussis DNA (PCR) NOT DETECTED 09/18/21 21:15 Nasal Coronavir 229E PCR NOT DETECTED 09/18/21 21:15 Nasal Coronavir HKU1 PCR NOT DETECTED 09/18/21 21:15 Nasal Coronavir NL63 PCR NOT DETECTED 09/18/21 21:15 Nasal Coronavir OC43 PCR NOT DETECTED 09/18/21 21:15 Nasal Enterovir/Rhinovir PCR NOT DETECTED 09/18/21 21:15 Nasal Influenza B PCR NOT DETECTED 09/18/21 21:15 Nasal Influenza A PCR NOT DETECTED 09/18/21 21:15 Nasal Parainfluen 1 PCR NOT DETECTED 09/18/21 21:15 Nasal Parainfluen 2 PCR NOT DETECTED 09/18/21 21:15 Nasal Parainfluen 3 PCR NOT DETECTED 09/18/21 21:15 Nasal Parainfluen 4 PCR NOT DETECTED 09/18/21 21:15 Nasal RSV (PCR) NOT DETECTED 09/18/21 21:15 Nasal Screen MRSA (PCR) NEGATIVE (NEGATIVE) 09/18/21 23:50 Nasal B.pertussis DNA PCR NOT DETECTED 09/18/21 21:15 Nasal C.pneumoniae (PCR) NOT DETECTED 09/18/21 21:15 Sohail Human Metapneumo PCR NOT DETECTED 09/18/21 21:15 Nasal M.pneumoniae (PCR) NOT DETECTED 09/18/21 21:15 Nasal SARS-CoV-2 (PCR) NOT DETECTED 09/18/21 21:15 Stl C. diff Tox B Gene NEGATIVE (NEGATIVE) 09/19/21 11:50 Last Dose Date 09/2009/21/21 05:25 Last Dose Time 1401 09/21/21 05:25 Digoxin 0.8 ng/mL 09/21/21 05:25 Ref Lab Test Result REPORT 09/19/21 11:50 - Procedures Procedures: Procedures EXCISION OF SIGMOID COLON, ENDO, DIAGN (06/17/21) ABX Reporting Has patient been on IV antibiotics over the past 48 hours?: No
[2021-09-22] MEDS: MAG HYDROX/AL HYDROX/SIMETH 30 ML UDC PO PRN (21:00)
--- NOTE | 2021-09-22 22:11 | XRAY Report ---
PROCEDURE: Abdomen 1 View X-Ray INDICATIONS: abdominal distention/pain TECHNIQUE: 1 view of the abdomen were acquired. COMPARISON: 09/20/2021 and 09/19/2021 FINDINGS: Surgical changes and devices: Surgical clips in the right upper abdomen are again noted. Previously s een enteric tube has been removed. Bowel: No pneumoperitoneum. There is gaseous distention of the stomach and numerous loops of small b owel which appears stable to slightly progressed compared to the prior study. No abnormal wall thicke jennifer. No radiographic evidence suggest free air. Soft tissues: No masses; visualized solid organ contours appear normal in size. No suspicious abdom inal calcifications. Bones: No suspicious bony abnormalities. IMPRESSION: Multiple loops of dilated small bowel appears stable to slightly progressed and remains consistent wi th small bowel obstruction. Previously seen nasogastric tube has been removed. Reviewed by: Adams Justin MD on 09/22/2021 10:09 PM PDT Approved by: Adams Justin MD on 09/22/2021 10:09 PM PDT Station ID: [id number]
[2021-09-22] MEDS: diltiaZEM INJ 125 MG in DEXTROSE 5% 100 ML IV SCH (22:18)
[2021-09-22] MEDS ORDERED: SODIUM CHLORIDE 0.9% 1,000 ML IV ONE (23:14)
[2021-09-23] MEDS: D5NS W/20 MEQ KCL 1,000 ML IV SCH ×2 (00:45→09:02)
--- NOTE | 2021-09-23 01:03 | XRAY Report ---
PROCEDURE: Chest for Line Placement INDICATIONS: NG tube placement TECHNIQUE: One view of the chest was acquired. COMPARISON: Radiographs from earlier same day, 09/20/2021, and 09/19/2021 FINDINGS: Surgical changes and devices: Interval placement of nasogastric tube with the distal tip projecting i nferior to the diaphragm. The distal side-port projects over the left upper abdomen. Tunneled left po rt device is again noted with distal tip projecting near the cavoatrial junction. Surgical clips in t he right upper abdomen as before. Lungs and pleura: No pleural effusions. Visualized portions of the lungs appear clear. Mediastinum: Mediastinal contours appear stable. Heart size is normal. Bones and chest wall: No suspicious bony lesions. Overlying soft tissues appear unremarkable. Mult iple dilated loops of small bowel are again noted. IMPRESSION: Interval placement of nasogastric tube with the distal tip projecting below the level of the diaphrag m and distal side port projecting in the left upper abdomen. Visualized lung bases appear clear. Dilated loops of small bowel better seen on dedicated imaging of the abdomen. Findings were noted to be consistent with small bowel obstruction. Reviewed by: Adams Justin MD on 09/23/2021 1:02 AM PDT Approved by: Adams Justin MD on 09/23/2021 1:02 AM PDT Station ID: [id number]
[2021-09-23 04:52] LABS: CALCIUM, IONIZED 1.16 mmol/L (1.15-1.33); VBG PH 7.317 (7.31-7.41)
[2021-09-23 04:57] LABS: BASOPHILS % (AUTO) 0.1 %; EOSINOPHILS % (AUTO) 0.1 %; HCT - HEMATOCRIT 38.1 % (42.0-52.0); MEAN CORPUSCULAR HEMOGLOBIN 33.2 pg (27.0-31.0); MEAN CORPUSCULAR HGB CONC 34.1 g/dL (32.0-36.0); MEAN CORPUSCULAR VOLUME 97.2 fL (80.0-94.0); MEAN PLATELET VOLUME 11.4 fL (7.4-11.4); NEUTROPHILS % (AUTO) 82.6 %; PLT - PLATELET COUNT 75 10^3/uL (130-450); RED BLOOD COUNT 3.92 10^6/uL (4.70-6.10); RED CELL DISTRIBUTION WIDTH 18.6 % (12.0-15.0)
[2021-09-23 05:05] LABS: ABNORMAL LYMPHS % (MANUAL) 0 %
[2021-09-23 05:21] LABS: BAND NEUTROPHILS % (MANUAL) 22 %; DIFFERENTIAL COMMENT MANUAL DIFFERENTIAL; LYMPHOCYTES # (MANUAL) 2.5 10^3/uL (1.5-3.5); LYMPHOCYTES % (MANUAL) 21 %; METAMYELOCYTES % (MANUAL) 1 %; MONOCYTES # (MANUAL) 1.1 10^3/uL (0.0-1.0); MYELOCYTES % (MANUAL) 1 %; NEUTROPHILS # (MANUAL) 8.2 10^3/uL (1.5-6.6); PLATELET ESTIMATE, MANUAL DECREASED (<130,000) (NORMAL); RBC MORPHOLOGY (MULTIPLE) NORMAL APPEARANCE (NORMAL)
[2021-09-23 06:10] LABS: CALCIUM 7.6 mg/dL (8.5-10.3)
[2021-09-23] MEDS: SODIUM CHLORIDE FLUSH 0.9% 10 ML SYRINGE IVP SCH ×3 (06:53→17:43)
[2021-09-23] MEDS: PANTOPRAZOLE 40 MG VIAL IVP SCH ×2 (06:53→21:07)
[2021-09-23] MEDS: DIGOXIN 500 MCG/2 ML AMP IVP SCH (08:27)
[2021-09-23] MEDS: ENOXAPARIN 40 MG/0.4 ML SYRINGE SUBQ SCH (08:41)
[2021-09-23 09:41] LABS: CALCIUM 7.7 mg/dL (8.5-10.3); CREATININE 1.2 mg/dL (0.6-1.2); POTASSIUM 4.1 mmol/L (3.5-5.0)
--- NOTE | 2021-09-23 11:01 | PROVIDER PROGRESS NOTE ---
Assessment/Plan - Problem List (1) Lactic acidosis Assessment/Plan: The patient had presented with a high lactic acid level of 6 which was improving on IV saline hydration. Because of his persistent electrolyte abnormalities the L.A. was checked today and is increasing at 4.4. He is clinically dehydrated which may be adding to this problem. He had an Echo done today that shows normal wall motion, normal LVEF and normal chamber sizes therefore cardiogenic shock has been ruled out. He is not hemorrhaging. Because of hypotension with high lactic acid level and rising white blood count (from leukopenic to elevated), the concern is that of septic shock. We will begin broad-spectrum antibiotics to cover a GI source. We will continue with IV fluids but change the type of fluid because of electrolytes (see below). We will not order fluids at 30 mL/kg because of his ascites. I discussed findings of todays CT scan with Dr. Randhawa. The CT was reported that the patient has a patulous esophagus and achalasia and also ascites present. Dr. Randhawa agreed with instituting antibiotics. The daughter requested that the patient be transferred for further management at a hospital with higher level of care. She wonders if he is a candidate for transfer to [facility] (due to his cancer Dx). I will reach out to centers to try to have him accepted. I updated the daughter Luz at bedside and at the same time his 2 sons Jaun and another son were on speaker phone listening. (2) Small bowel obstruction Assessment/Plan: Yesterday's events led to reinsertion of an NG tube and 4.4 L was drained. The patient is reporting that he is hungry. CT reported achalasia. I then reviewed with the patient and daughter at bedside and 2 sons on speaker phone what achalasia means and they all said they have the symptoms and have all been told to have achalasia. No restart of diet because of continued obstruction. NG to suction. Will increase iv antiacids to prevent acid reflux symptoms. General surgery is following along with us. (3) Hypernatremia Assessment/Plan: This is likely from normal saline being administered at a high rate for several days and being n.p.o. therefore having free water deficit. We will change IV fluids to contain free water: D5 one half NS. No potassium is required. We will recheck his electrolytes this afternoon and morning BMP (4) Acidosis, hyperchloremic Assessment/Plan: Thus is likely from high amounts of saline rescusitation, causing hyperchloremic acidosis. He is trying to compmsate by ventilating off CO2 (and has tachypnea), but is not hypoxic. Will stop iv fluids containing saline. Will start iv with free water (D5 1/2 MS). Follow BMP daily. (5) Metabolic acidosis with respiratory alkalosis Assessment/Plan: As above in #3. (6) Chemotherapy induced neutropenia Assessment/Plan: Resolved. He now has elevated WBC (7) Neutropenic colitis Assessment/Plan: As per General surgeon. Continue manging with ng tibe for decompression and iv fluids. Today will start nutrition with tpn. (8) SVT (supraventricular tachycardia) Assessment/Plan: He has received L of fluids for dehydration. He was started on Diltiazem drip yesterday. Echo ordered to assess chamber sizes (volume status) and LVEF. (9) Moderate malnutrition Assessment/Plan: This patient has muscle wasting, loss of subcutaneous fat and temporal muscle wasting, and he had nutritional intake of <50% of recommended intake for 1 week. RDM to manage - Current Meds Current Meds: Current Medications Generic Name Dose Route Start Last Admin Trade Name Freq PRN Reason Stop Dose Admin Al Hydroxide/Mg Hydroxide 30 ml 09/22/21 20:39 09/22/21 21:00 Mag Hydrox/Al Hydrox/Simeth 30 Ml Udc PO 30 ml Q4HR PRN Administration INDIGESTION Digoxin 125 mcg 09/21/21 09:00 09/23/21 08:27 Digoxin 500 Mcg/2 Ml Amp IVP 125 mcg DAILY SPENCER Administration Enoxaparin Sodium 40 mg 09/19/21 09:00 09/23/21 08:41 Enoxaparin 40 Mg/0.4 Ml Syringe SUBQ Not Given DAILY SPENCER Potassium Chloride/Dextrose/Sod Cl 1,000 mls @ 125 mls/hr 09/20/21 08:00 09/23/21 09:02 D5ns W/20 Meq Kcl IV 125 mls/hr .Q8H SPENCER Administration Diltiazem HCl 125 mg/ Dextrose 125 mls @ 5 mls/hr 09/22/21 22:00 09/22/21 22:38 IV 10 mg/hr .Q25H SPENCER 10 mls/hr Titration Protocol 5 MG/HR Morphine Sulfate 2 mg 09/18/21 22:41 09/21/21 00:20 Morphine 2 Mg/Ml Carpuject IVP 2 mg Q2HR PRN Administration Pain 8 to 10 Oxycodone HCl 5 mg 09/18/21 22:41 09/19/21 16:40 Oxycodone 5 Mg Tablet PO 5 mg Q4HR PRN Administration Pain 5 to 7 Pantoprazole Sodium 40 mg 09/19/21 07:00 09/23/21 06:53 Pantoprazole 40 Mg Vial IVP 40 mg QDAC SPENCER Administration Sodium Chloride 10 ml 09/19/21 01:00 09/23/21 08:39 Sodium Chloride Flush 0.9% 10 Ml Syringe IVP 30 ml 0100,0900,1700 SPENCER Administration Sodium Chloride 10 ml 09/18/21 22:41 09/22/21 17:14 Sodium Chloride Flush 0.9% 10 Ml Syringe IVP 30 ml PRN PRN Administration NEEDED PER PROVIDER ORDERS - Lab Result Fish Bone Diagrams: 09/23/21 04:15 09/23/21 04:15 - Additional Planning My Orders: My Active Orders 09/23/21 05:00 LACTIC ACID, VENOUS [CHEM] Stat 09/23/21 08:00 Echo Transthoracic Complete [ECHO] Routine 09/23/21 11:00 D5.45NS @ 83.333 mls/hr Dextrose 5%-0.45% NaCl [D5.45ns] 1,000 ml IV 83.333 mls/hr 09/24/21 05:00 CALCIUM [CHEM] DAILYLAB POTASSIUM [CHEM] DAILYLAB Subjective - Subjective Patient Reports: Other (Weak, asking for a wet swab to lips and mouth. Daughter is at bedside. Pt is whispering when communicating. RR is elevated and his breaths are shallow.) Objective Vital Signs: Vital Signs - 24 hr 09/22/21 09/22/21 09/22/21 11:00 11:30 12:00 Temperature Heart Rate Heart Rate [ 135 H Activity] Heart Rate [ 121 H 128 H Monitoring electrodes] Heart Rate [ 123 H Supine] Respiratory 36 H 43 H Rate Blood Pressure Blood Pressure 120/75 [Activity] Blood Pressure 105/66 106/78 [Right Brachial artery] Blood Pressure 105/66 [Supine] O2 Saturation 98 100 09/22/21 09/22/2121 13:00 14:00 15:00 Temperature Heart Rate Heart Rate [ Activity] Heart Rate [ 132 H 128 H 125 H Monitoring electrodes] Heart Rate [ Supine] Respiratory 28 H 29 H 37 H Rate Blood Pressure Blood Pressure [Activity] Blood Pressure 122/71 105/71 99/74 [Right Brachial artery] Blood Pressure [Supine] O2 Saturation 92 91 L 98 09/22/21 09/22/21 09/22/21 15:57 16:00 17:00 Temperature 36.4 C L Heart Rate Heart Rate [ Activity] Heart Rate [ 125 H 128 H Monitoring electrodes] Heart Rate [ Supine] Respiratory 39 H 44 H Rate Blood Pressure Blood Pressure [Activity] Blood Pressure 114/84 H 105/73 [Right Brachial artery] Blood Pressure [Supine] O2 Saturation 97 98 09/22/21 09/22/21 09/22/21 18:00 18:30 19:00 Temperature 36.6 C 36.6 C Heart Rate Heart Rate [ Activity] Heart Rate [ 127 H 125 H Monitoring electrodes] Heart Rate [ Supine] Respiratory 38 H 44 H Rate Blood Pressure Blood Pressure [Activity] Blood Pressure 108/79 125/74 [Right Brachial artery] Blood Pressure [Supine] O2 Saturation 98 98 09/22/21 09/22/21 09/22/21 20:00 21:00 22:00 Temperature Heart Rate Heart Rate [ Activity] Heart Rate [ 128 H 131 H 126 H Monitoring electrodes] Heart Rate [ Supine] Respiratory 33 H 42 H 42 H Rate Blood Pressure Blood Pressure [Activity] Blood Pressure 128/71 90/61 94/64 [Right Brachial artery] Blood Pressure [Supine] O2 Saturation 97 96 98 09/22/21 09/22/21 09/23/21 22:18 23:00 00:00 Temperature 36.5 C Heart Rate Heart Rate [ Activity] Heart Rate [ 119 H 117 H Monitoring electrodes] Heart Rate [ Supine] Respiratory 46 H 41 H Rate Blood Pressure 94/64 Blood Pressure [Activity] Blood Pressure 116/58 L 76/56 L [Right Brachial artery] Blood Pressure [Supine] O2 Saturation 95 100 09/23/21 09/23/21 09/23/21 02:00 03:00 04:00 Temperature Heart Rate Heart Rate [ Activity] Heart Rate [ 111 H 109 H 113 H Monitoring electrodes] Heart Rate [ Supine] Respiratory 37 H 34 H 39 H Rate Blood Pressure Blood Pressure [Activity] Blood Pressure 83/57 L 81/55 L 81/57 L [Right Brachial artery] Blood Pressure [Supine] O2 Saturation 96 97 98 09/23/21 09/23/21 09/23/21 05:00 06:00 07:00 Temperature Heart Rate Heart Rate [ Activity] Heart Rate [ 103 H 107 H 100 Monitoring electrodes] Heart Rate [ Supine] Respiratory 36 H 41 H 34 H Rate Blood Pressure Blood Pressure [Activity] Blood Pressure 75/53 L 84/52 L 86/51 L [Right Brachial artery] Blood Pressure [Supine] O2 Saturation 93 94 94 09/23/21 09/23/21 09/23/21 08:00 08:27 09:00 Temperature 36.5 C Heart Rate 105 H Heart Rate [ Activity] Heart Rate [ 109 H 103 H Monitoring electrodes] Heart Rate [ Supine] Respiratory 35 H 33 H Rate Blood Pressure Blood Pressure [Activity] Blood Pressure 81/57 L 80/56 L [Right Brachial artery] Blood Pressure [Supine] O2 Saturation 96 96 Oxygen O2 Source Room air I&O (Last 24 Hrs): Intake and Output Totals x24h 09/21/21 09/22/21 09/23/21 23:59 23:59 23:59 Intake Total 4299.584 3923.667 3000 Output Total 5360 3145 4813 Balance -1060.416 778.667 -3873 General: Alert, Other (Male pattern baldness. Appears fatigued. Is cachectic) HEENT: Other (Whispering, dry oral mucosa, temporal muscle wasting) Neck: Supple Neuro: Alert, Other (generalized weakness and fatigue noted) Cardiovascular: Regular rate (Tachy) Respiratory: Other (Tachypneic) Abdomen: Soft Extremities: No edema - Results Results: Laboratory Results WBC 12.0 x10^3/uL (4.8-10.8) H 09/23/21 04:15 RBC 3.92 10^6/uL (4.70-6.10) L 09/23/21 04:15 Hgb 13.0 g/dL (14.0-18.0) L 09/23/21 04:15 Hct 38.1 % (42.0-52.0) L 09/23/21 04:15 MCV 97.2 fL (80.0-94.0) H 09/23/21 04:15 MCH 33.2 pg (27.0-31.0) H 09/23/21 04:15 MCHC 34.1 g/dL (32.0-36.0) 09/23/21 04:15 RDW 18.6 % (12.0-15.0) H 09/23/21 04:15 Plt Count 75 10^3/uL (130-450) L 09/23/21 04:15 MPV 11.4 fL (7.4-11.4) 09/23/21 04:15 Neut # (Auto) Not Reportable 09/23/21 04:15 Lymph # (Auto) Not Reportable 09/23/21 04:15 [place] # (Auto) Not Reportable 09/23/21 04:15 Eos # (Auto) Not Reportable 09/23/21 04:15 Baso # (Auto) Not Reportable 09/23/21 04:15 Absolute Nucleated RBC Not Reportable 09/23/21 04:15 Total Counted 100 09/23/21 04:15 Band Neuts % (Manual) 22 % (0-10) H 09/23/21 04:15 Abnorm Lymph % (Manual) 0 % 09/23/21 04:15 Metamyelocytes % 1 % (-0) H 09/23/21 04:15 Myelocytes % 1 % (-0) H 09/23/21 04:15 Nucleated RBC % Not Reportable 09/23/21 04:15 Neutrophils # (Manual) 8.2 10^3/uL (1.5-6.6) H 09/23/21 04:15 Lymphocytes # (Manual) 2.5 10^3/uL (1.5-3.5) 09/23/21 04:15 Monocytes # (Manual) 1.1 10^3/uL (0.0-1.0) H 09/23/21 04:15 Eosinophils # (Manual) 0.0 10^3/uL (0-0.7) 09/23/21 04:15 Basophils # (Manual) 0.0 10^3/uL (0-0.1) 09/23/21 04:15 Differential Comment MANUAL DIFFERENTIAL 09/23/21 04:15 Manual Slide Review Indicated 09/18/21 20:50 WBC Morphology NORMAL APPEARANCE (NORMAL) 09/22/21 04:35 Platelet Estimate DECREASED (<130,000) (NORMAL) 09/23/21 04:15 Platelet Morphology NORMAL APPEARANCE (NORMAL) 09/22/21 04:35 RBC Morph Micro Appear NORMAL APPEARANCE (NORMAL) 09/23/21 04:15 D-Dimer 925.3 ng/mL (200.0-255.0) H 09/18/21 20:50 Bld Gas Analysis Time 1212 09/20/21 12:00 Sample Site RIGHT RADIAL 09/20/21 12:00 ABG pH 7.43 (7.35-7.45) 09/20/21 12:00 ABG pCO2 23 mmHg (34-45) L* 09/20/21 12:00 ABG pO2 84 mmHg (80-100) 09/20/21 12:00 ABG HCO3 14.6 mmol/L (22.0-26.0) L 09/20/21 12:00 ABG Total CO2 15.3 MMOL/L (21.0-29.0) L 09/20/21 12:00 ABG O2 Saturation 97 % (94-98) 09/20/21 12:00 ABG Base Excess -7.8 mmol/L (-2.0-3.0) L 09/20/21 12:00 Pineda Test POSITIVE 09/20/21 12:00 VBG pH Cancelled 09/23/21 08:27 VBG pCO2 35.2 mmHg (41-51) L 09/18/21 20:50 VBG pO2 21.5 mmHg (25-47) L 09/18/21 20:50 VBG HCO3 12.6 mmol/L (23-28) L 09/18/21 20:50 VBG Total CO2 13.7 mmol/L (24-29) L 09/18/21 20:50 VBG O2 Saturation 34.5 % (60-80) L 09/18/21 20:50 VBG Base Excess -14.8 mmol/L (-2 - +2) L 09/18/21 20:50 Ionized Calcium Cancelled 09/23/21 08:27 Room Air YES 09/20/21 12:00 O2 Delivery Device BiPAP 09/18/21 21:15 FiO2 100.00 09/18/21 21:15 EPAP 5 cmH2O 09/18/21 21:15 IPAP 12 cmH2O 09/18/21 21:15 Sodium 149 mmol/L (135-145) H 09/23/21 04:15 Potassium 4.0 mmol/L (3.5-5.0) 09/23/21 04:15 Potassium 4.1 mmol/L (3.5-5.0) 09/23/21 04:15 Chloride 125 mmol/L (101-111) H* 09/23/21 04:15 Carbon Dioxide 12 mmol/L (21-32) L* 09/23/21 04:15 Anion Gap 12.0 (6-13) 09/23/21 04:15 BUN 45 mg/dL (6-20) H 09/23/21 04:15 Creatinine 1.2 mg/dL (0.6-1.2) 09/23/21 04:15 Estimated GFR (MDRD) 59 (>89) L 09/23/21 04:15 Glucose 127 mg/dL (70-100) H 09/23/21 04:15 Lactic Acid 2.2 mmol/L (0.5-2.2) 09/19/21 20:39 Calcium 7.6 mg/dL (8.5-10.3) L 09/23/21 04:15 Calcium 7.7 mg/dL (8.5-10.3) L 09/23/21 04:15 Phosphorus 3.3 mg/dL (2.5-4.6) 09/23/21 04:15 Magnesium 2.1 mg/dL (1.7-2.8) 09/23/21 04:15 Total Bilirubin 1.5 mg/dL (0.2-1.0) H 09/18/21 20:50 AST < 10 IU/L (10-42) L 09/18/21 20:50 ALT < 10 IU/L (10-60) L 09/18/21 20:50 Alkaline Phosphatase 58 IU/L (42-121) 09/18/21 20:50 Troponin I High Sens 56.4 ng/L (2.3-19.7) H* 09/19/21 20:39 B-Natriuretic Peptide 149 pg/mL (5-100) H 09/18/21 20:50 Total Protein 6.2 g/dL (6.7-8.2) L 09/18/21 20:50 Albumin 2.7 g/dL (3.2-5.5) L 09/18/21 20:50 Globulin 3.5 g/dL (2.1-4.2) 09/18/21 20:50 Albumin/Globulin Ratio 0.8 (1.0-2.2) L 09/18/21 20:50 Lipase 17 U/L (22-51) L 09/18/21 20:50 Nasal Adenovirus (PCR) NOT DETECTED 09/18/21 21:15 Nasal B. parapertussis DNA (PCR) NOT DETECTED 09/18/21 21:15 Nasal Coronavir 229E PCR NOT DETECTED 09/18/21 21:15 Nasal Coronavir HKU1 PCR NOT DETECTED 09/18/21 21:15 Nasal Coronavir NL63 PCR NOT DETECTED 09/18/21 21:15 Nasal Coronavir OC43 PCR NOT DETECTED 09/18/21 21:15 Nasal Enterovir/Rhinovir PCR NOT DETECTED 09/18/21 21:15 Nasal Influenza B PCR NOT DETECTED 09/18/21 21:15 Nasal Influenza A PCR NOT DETECTED 09/18/21 21:15 Nasal Parainfluen 1 PCR NOT DETECTED 09/18/21 21:15 Nasal Parainfluen 2 PCR NOT DETECTED 09/18/21 21:15 Nasal Parainfluen 3 PCR NOT DETECTED 09/18/21 21:15 Nasal Parainfluen 4 PCR NOT DETECTED 09/18/21 21:15 Nasal RSV (PCR) NOT DETECTED 09/18/21 21:15 Nasal Screen MRSA (PCR) NEGATIVE (NEGATIVE) 09/18/21 23:50 Nasal B.pertussis DNA PCR NOT DETECTED 09/18/21 21:15 Nasal C.pneumoniae (PCR) NOT DETECTED 09/18/21 21:15 Sohail Human Metapneumo PCR NOT DETECTED 09/18/21 21:15 Nasal M.pneumoniae (PCR) NOT DETECTED 09/18/21 21:15 Nasal SARS-CoV-2 (PCR) NOT DETECTED 09/18/21 21:15 Stl C. diff Tox B Gene NEGATIVE (NEGATIVE) 09/19/21 11:50 Last Dose Date 09/2009/21/21 05:25 Last Dose Time 1401 09/21/21 05:25 Digoxin 0.8 ng/mL 09/21/21 05:25 Ref Lab Test Result REPORT 09/19/21 11:50 - Procedures Procedures: Procedures EXCISION OF SIGMOID COLON, ENDO, DIAGN (06/17/21)
[2021-09-23] MEDS: SODIUM CHLORIDE FLUSH 0.9% 10 ML SYRINGE IVP PRN (11:16)
[2021-09-23] MEDS: DEXTROSE 5%-0.45% NACL 1,000 ML IV SCH ×2 (11:21→23:39)
[2021-09-23] MEDS ORDERED: IOVERSOL 320 100 ML VIAL IVP ONE ×2 (14:43→21:51)
[2021-09-23 14:44] LABS: VBG BASE EXCESS -7.6 mmol/L (-2 - +2); VBG HCO3 15.5 mmol/L (23-28); VBG PCO2 25.5 mmHg (41-51); VBG PH 7.403 (7.31-7.41); VBG PO2 33.6 mmHg (25-47); VBG TOTAL CO2 16.3 mmol/L (24-29)
--- NOTE | 2021-09-23 14:47 | PROVIDER PROGRESS NOTE ---
Subjective - General Admit Date: 09/18/21 Procedure Date: 08/03/21 Post Op Days: 51 - Review of Systems General: positive: Weakness, Malaise. negative: Fever, Chills, Appetite HEENT: positive: No symptoms Pulmonary: positive: No symptoms Cardiovascular: positive: No symptoms. negative: Chest pain, Palpitations Gastrointestinal: positive: Abdominal pain (Slight on right side but better than yesterday.) Skin: positive: No symptoms Psychiatric: positive: Depression Objective - Patient Data Reviewed Vital Signs: Yes Vital Signs: Vital Signs x48h Temp Pulse Pulse Resp BP Pulse Ox 09/23/21 14:00 105 H 38 H 76/51 L 94 09/23/21 13:36 77/59 L 09/23/21 12:00 107 H 38 H 87/60 L 95 09/23/21 11:00 108 H 38 H 93/58 L 97 09/23/21 10:00 103 H 35 H 83/56 L 96 09/23/21 09:00 103 H 33 H 80/56 L 96 09/23/21 08:27 105 H 09/23/21 08:00 36.5 C 109 H 35 H 81/57 L 96 09/23/21 07:00 100 34 H 86/51 L 94 Weight: Weight 09/21/21 09/22/21 09/23/21 23:59 23:59 23:59 Weight (kg) 74 kg 73.5 kg 74 kg Intake & Output: Intake and Output Totals x24h 09/21/21 09/22/21 09/23/21 23:59 23:59 23:59 Intake Total 4299.584 3923.667 3088.667 Output Total 5360 3145 5021 Balance -1060.416 778.667 -1932.333 - Lab Results Lab Results: 09/23/21 04:15 09/23/21 04:15 Other Lab Results: Lab Results x24hrs 09/23/21 09/23/21 09/23/21 Range/Units 11:07 08:27 04:15 WBC (4.8-10.8) x10^3/uL RBC (4.70-6.10) 10^6/uL Hgb (14.0-18.0) g/dL Hct (42.0-52.0) % MCV (80.0-94.0) fL MCH (27.0-31.0) pg MCHC (32.0-36.0) g/dL RDW (12.0-15.0) % Plt Count (130-450) 10^3/uL MPV (7.4-11.4) fL Neut # (Auto) Lymph # (Auto) [place] # (Auto) Eos # (Auto) Baso # (Auto) Absolute Nucleated RBC Total Counted Band Neuts % (Manual) (0 - 10) % Abnorm Lymph % (Manual) % Metamyelocytes % ( - 0) % Myelocytes % ( - 0) % Nucleated RBC % Neutrophils # (Manual) (1.5-6.6) 10^3/uL Lymphocytes # (Manual) (1.5-3.5) 10^3/uL Monocytes # (Manual) (0.0-1.0) 10^3/uL Eosinophils # (Manual) (0-0.7) 10^3/uL Basophils # (Manual) (0-0.1) 10^3/uL Differential Comment Platelet Estimate (NORMAL) RBC Morph Micro Appear (NORMAL) VBG pH Cancelled (7.31-7.41) Ionized Calcium Cancelled (1.15-1.33) mmol/L Sodium 149 H (135-145) mmol/L Potassium 4.1 (3.5-5.0) mmol/L Chloride 125 H* (101-111) mmol/L Carbon Dioxide 12 L* (21-32) mmol/L Anion Gap 12.0 (6-13) BUN 45 H (6-20) mg/dL Creatinine 1.2 (0.6-1.2) mg/dL Estimated GFR (MDRD) 59 L (>89) Glucose 127 H (70-100) mg/dL Lactic Acid 4.4 H* (0.5-2.2) mmol/L Calcium 7.7 L (8.5-10.3) mg/dL Phosphorus (2.5-4.6) mg/dL Magnesium (1.7-2.8) mg/dL 09/23/21 09/23/21 09/23/21 Range/Units 04:15 04:15 04:15 WBC (4.8-10.8) x10^3/uL RBC (4.70-6.10) 10^6/uL Hgb (14.0-18.0) g/dL Hct (42.0-52.0) % MCV (80.0-94.0) fL MCH (27.0-31.0) pg MCHC (32.0-36.0) g/dL RDW (12.0-15.0) % Plt Count (130-450) 10^3/uL MPV (7.4-11.4) fL Neut # (Auto) Lymph # (Auto) [place] # (Auto) Eos # (Auto) Baso # (Auto) Absolute Nucleated RBC Total Counted Band Neuts % (Manual) (0 - 10) % Abnorm Lymph % (Manual) % Metamyelocytes % ( - 0) % Myelocytes % ( - 0) % Nucleated RBC % Neutrophils # (Manual) (1.5-6.6) 10^3/uL Lymphocytes # (Manual) (1.5-3.5) 10^3/uL Monocytes # (Manual) (0.0-1.0) 10^3/uL Eosinophils # (Manual) (0-0.7) 10^3/uL Basophils # (Manual) (0-0.1) 10^3/uL Differential Comment Platelet Estimate (NORMAL) RBC Morph Micro Appear (NORMAL) VBG pH 7.317 (7.31-7.41) Ionized Calcium 1.16 (1.15-1.33) mmol/L Sodium (135-145) mmol/L Potassium 4.0 (3.5-5.0) mmol/L Chloride (101-111) mmol/L Carbon Dioxide (21-32) mmol/L Anion Gap (6-13) BUN (6-20) mg/dL Creatinine (0.6-1.2) mg/dL Estimated GFR (MDRD) (>89) Glucose (70-100) mg/dL Lactic Acid (0.5-2.2) mmol/L Calcium 7.6 L (8.5-10.3) mg/dL Phosphorus (2.5-4.6) mg/dL Magnesium 2.1 (1.7-2.8) mg/dL 09/23/21 09/23/21 09/22/21 Range/Units 04:15 04:15 17:11 WBC 12.0 H (4.8-10.8) x10^3/uL RBC 3.92 L (4.70-6.10) 10^6/uL Hgb 13.0 L (14.0-18.0) g/dL Hct 38.1 L (42.0-52.0) % MCV 97.2 H (80.0-94.0) fL MCH 33.2 H (27.0-31.0) pg MCHC 34.1 (32.0-36.0) g/dL RDW 18.6 H (12.0-15.0) % Plt Count 75 L (130-450) 10^3/uL MPV 11.4 (7.4-11.4) fL Neut # (Auto) Not Reportable Lymph # (Auto) Not Reportable [place] # (Auto) Not Reportable Eos # (Auto) Not Reportable Baso # (Auto) Not Reportable Absolute Nucleated RBC Not Reportable Total Counted 100 Band Neuts % (Manual) 22 H (0 - 10) % Abnorm Lymph % (Manual) 0 % Metamyelocytes % 1 H ( - 0) % Myelocytes % 1 H ( - 0) % Nucleated RBC % Not Reportable Neutrophils # (Manual) 8.2 H (1.5-6.6) 10^3/uL Lymphocytes # (Manual) 2.5 (1.5-3.5) 10^3/uL Monocytes # (Manual) 1.1 H (0.0-1.0) 10^3/uL Eosinophils # (Manual) 0.0 (0-0.7) 10^3/uL Basophils # (Manual) 0.0 (0-0.1) 10^3/uL Differential Comment MANUAL DIFFERENTIAL Platelet Estimate DECREASED (<130,000) (NORMAL) RBC Morph Micro Appear NORMAL APPEARANCE (NORMAL) VBG pH (7.31-7.41) Ionized Calcium (1.15-1.33) mmol/L Sodium (135-145) mmol/L Potassium (3.5-5.0) mmol/L Chloride (101-111) mmol/L Carbon Dioxide (21-32) mmol/L Anion Gap (6-13) BUN (6-20) mg/dL Creatinine (0.6-1.2) mg/dL Estimated GFR (MDRD) (>89) Glucose (70-100) mg/dL Lactic Acid (0.5-2.2) mmol/L Calcium (8.5-10.3) mg/dL Phosphorus 3.3 2.6 (2.5-4.6) mg/dL Magnesium (1.7-2.8) mg/dL - Current Medications Current Medications: Current Medications Generic Name Dose Route Start Last Admin Trade Name Freq PRN Reason Stop Dose Admin Al Hydroxide/Mg Hydroxide 30 ml 09/22/21 20:39 09/22/21 21:00 Mag Hydrox/Al Hydrox/Simeth 30 Ml Udc PO 30 ml Q4HR PRN Administration INDIGESTION Digoxin 125 mcg 09/21/21 09:00 09/23/21 08:27 Digoxin 500 Mcg/2 Ml Amp IVP 125 mcg DAILY SPENCER Administration Enoxaparin Sodium 40 mg 09/19/21 09:00 09/23/21 08:41 Enoxaparin 40 Mg/0.4 Ml Syringe SUBQ Not Given DAILY SPENCER Diltiazem HCl 125 mg/ Dextrose 125 mls @ 5 mls/hr 09/22/21 22:00 09/23/21 07:30 IV 5 mg/hr .Q25H SPENCER 5 mls/hr Titration Protocol 5 MG/HR Dextrose/Sodium Chloride 1,000 mls @ 83.333 mls/hr 09/23/21 11:00 09/23/21 11:21 D5.45ns IV 83.333 mls/hr .Q12H SPENCER Administration Morphine Sulfate 2 mg 09/18/21 22:41 09/21/21 00:20 Morphine 2 Mg/Ml Carpuject IVP 2 mg Q2HR PRN Administration Pain 8 to 10 Oxycodone HCl 5 mg 09/18/21 22:41 09/19/21 16:40 Oxycodone 5 Mg Tablet PO 5 mg Q4HR PRN Administration Pain 5 to 7 Pantoprazole Sodium 40 mg 09/19/21 07:00 09/23/21 06:53 Pantoprazole 40 Mg Vial IVP 40 mg QDAC SPENCER Administration Sodium Chloride 10 ml 09/19/21 01:00 09/23/21 08:39 Sodium Chloride Flush 0.9% 10 Ml Syringe IVP 30 ml 0100,0900,1700 SPENCER Administration Sodium Chloride 10 ml 09/18/21 22:41 09/23/21 11:16 Sodium Chloride Flush 0.9% 10 Ml Syringe IVP 30 ml PRN PRN Administration NEEDED PER PROVIDER ORDERS - Physical Exam General Appearance: positive: Lethargic Eyes Bilateral: positive: No lid inflammation, Conjunctivae nml, No scleral icterus ENT: positive: Dry mucous membranes Neck: positive: Trachea midline Respiratory: positive: Chest non-tender, No respiratory distress, Breath sounds nml, Other (Tachypnea) Cardiovascular: positive: Tachycardia Rectal: positive: Tenderness (Mild right sided.) Skin: positive: Pallor Extremities: positive: Non-tender, Full ROM, Nml appearance. negative: Joint swelling, Stanford's sign/cords Neurologic/Psychiatric: positive: Oriented x3 ABX Reporting Has patient been on IV antibiotics over the past 48 hours?: Yes Impression/Plan - Problem List Problem List: As mentioned yesterday the patient has/had neutropenic colitis (typhlitis) patient did not tolerate having the NG out and eating. NG replaced and 4000 mL removed. Clearly the bowel has not opened up yet. Treatment is still supportive and wait for the bowel to open up. My role here is supportive in the sense that if the bowel perforates or necroses I am here to resect the perforation. The increased amount of lactic acid is likely in response to the respiratory alkalosis (enough time has passed that his body can mount the response). As mentioned in my note yesterday the most common reasons that I can think of are pneumonia or PE. I discussed this with Dr. Springer. Additionally the family is requesting transfer to a higher level of care which I do not disagree with. I appreciate the opportunity to be involved in this patient's care.
--- NOTE | 2021-09-23 15:51 | CT Report ---
PROCEDURE: ANGIO CHEST W/WO INDICATIONS: Tachypnea, persistent respiratory alkalosis. CONTRAST: IV CONTRAST: Optiray 320 ml: 80 PO CONTRAST: *NO PO CONTRAST TECHNIQUE: After the administration of intravenous contrast, 2 mm axial images were acquired from the pulmonary apices to the posterior costophrenic angles during the arterial phase. In addition, 1 mm lung kernel and 5 mm soft tissue kernel reconstructions were performed. 3-dimensional coronal oblique maximum int ensity projection (MIP) reformats, 8 mm axial MIP, and 5 mm coronal and sagittal MPR reformats were t hen performed through the thorax. For radiation dose reduction, the following was used: automated exp osure control, adjustment of mA and/or kV according to patient size. COMPARISON: September 18, 2021 FINDINGS: Thyroid: Homogeneous. Systemic arterial Vasculature: The thoracic aorta and arch vasculature have a normal contrasted appea patricia. Normal size and contour without evidence of dissection. A left nish catheter is seen. Pulmonary arterial vasculature: The pulmonary arterial vasculature demonstrates good contrast opacifi cation. No filling defect is appreciated to suggest pulmonary embolism. Heart: No cardiomegaly. Trace pericardial effusion/thickening. Coronary artery calcifications are pre sent. Mediastinum/ankur: No pathologically enlarged mediastinal lymph nodes are seen. Patulous appearance of the mid to distal esophagus with enteric tube in situ. Lungs/pleura: Small to moderate bilateral pleural effusions with adjacent compressive atelectasis. No pneumothorax. Tracheobronchial tree: Patent. Small nodular secretions are seen within the distal trachea and right mainstem bronchus. Upper abdomen: Ascites, partially imaged. Bones: No significant osseous abnormalities are noted. Chest wall: The chest wall and axilla are within normal limits. IMPRESSION: 1.No CT evidence of pulmonary embolus. 2. Small to moderate bilateral pleural effusions with adjacent atelectasis. 3.Patulous appearance of the mid to distal esophagus, which may reflect achalasia. 4.Ascites, partially imaged. Reviewed by: Armin Post MD on 09/23/2021 3:49 PM PDT Approved by: Armin Post MD on 09/23/2021 3:49 PM PDT Station ID: [id number]
[2021-09-23] MEDS: diltiaZEM INJ 125 MG in DEXTROSE 5% 100 ML IV SCH (16:08)
--- NOTE | 2021-09-23 16:25 | PROVIDER PROGRESS NOTE ---
Assessment/Plan - Current Meds Current Meds: Current Medications Generic Name Dose Route Start Last Admin Trade Name Freq PRN Reason Stop Dose Admin Al Hydroxide/Mg Hydroxide 30 ml 09/22/21 20:39 09/22/21 21:00 Mag Hydrox/Al Hydrox/Simeth 30 Ml Udc PO 30 ml Q4HR PRN Administration INDIGESTION Digoxin 125 mcg 09/21/21 09:00 09/23/21 08:27 Digoxin 500 Mcg/2 Ml Amp IVP 125 mcg DAILY SPENCER Administration Enoxaparin Sodium 40 mg 09/19/21 09:00 09/23/21 08:41 Enoxaparin 40 Mg/0.4 Ml Syringe SUBQ Not Given DAILY SPENCER Diltiazem HCl 125 mg/ Dextrose 125 mls @ 5 mls/hr 09/22/21 22:00 09/23/21 16:08 IV 5 mg/hr .Q25H SPENCER 5 mls/hr Administration Protocol 5 MG/HR Dextrose/Sodium Chloride 1,000 mls @ 83.333 mls/hr 09/23/21 11:00 09/23/21 11:21 D5.45ns IV 83.333 mls/hr .Q12H SPENCER Administration Morphine Sulfate 2 mg 09/18/21 22:41 09/21/21 00:20 Morphine 2 Mg/Ml Carpuject IVP 2 mg Q2HR PRN Administration Pain 8 to 10 Oxycodone HCl 5 mg 09/18/21 22:41 09/19/21 16:40 Oxycodone 5 Mg Tablet PO 5 mg Q4HR PRN Administration Pain 5 to 7 Pantoprazole Sodium 40 mg 09/19/21 07:00 09/23/21 06:53 Pantoprazole 40 Mg Vial IVP 40 mg QDAC SPENCER Administration Sodium Chloride 10 ml 09/19/21 01:00 09/23/21 08:39 Sodium Chloride Flush 0.9% 10 Ml Syringe IVP 30 ml 0100,0900,1700 SPENCER Administration Sodium Chloride 10 ml 09/18/21 22:41 09/23/21 11:16 Sodium Chloride Flush 0.9% 10 Ml Syringe IVP 30 ml PRN PRN Administration NEEDED PER PROVIDER ORDERS - Lab Result Fish Bone Diagrams: 09/23/21 04:15 09/23/21 04:15 - Additional Planning My Orders: My Active Orders 09/23/21 08:00 Echo Transthoracic Complete [ECHO] Routine 09/23/21 11:00 Dextrose 5%-0.45% NaCl [D5.45ns] 1,000 ml IV 83.333 mls/hr 09/23/21 16:22 Vancomycin: Pharmacy To Dose [Vancomycin-Pharmacy To Dose] 1 each MC ONCE PRN 09/23/21 17:00 Piperacillin/Tazobactam [Zosyn] 3.375 gm Sodium Chloride 0.9% Minibag [Normal Saline 0.9% Minibag] 100 ml IV Q6H 09/23/21 19:00 Fat Emul/Soy/Mct/Oliv/Fish Oil [Smoflipid 20% IV Fat Emulsion] 50 gm in 250 ml IV 1900 Multivitamin [Infuvite] 10 ml Trace Elements [Tralement Vial] 1 ml TPN (Clinimix E 5/15) [Clinimix E 5%-15% Solution] 2,000 ml IV Q24H 09/24/21 05:00 CALCIUM [CHEM] DAILYLAB POTASSIUM [CHEM] DAILYLAB Objective Vital Signs: Vital Signs - 24 hr 09/22/21 09/22/21 09/22/21 17:00 18:00 18:30 Temperature 36.6 C Heart Rate Heart Rate [ 128 H 127 H Monitoring electrodes] Respiratory 44 H 38 H Rate Blood Pressure Blood Pressure 105/73 108/79 [Right Brachial artery] O2 Saturation 98 98 09/22/21 09/22/21 09/22/21 19:00 20:00 21:00 Temperature 36.6 C Heart Rate Heart Rate [ 125 H 128 H 131 H Monitoring electrodes] Respiratory 44 H 33 H 42 H Rate Blood Pressure Blood Pressure 125/74 128/71 90/61 [Right Brachial artery] O2 Saturation 98 97 96 09/22/21 09/22/21 09/22/21 22:00 22:18 23:00 Temperature 36.5 C Heart Rate Heart Rate [ 126 H 119 H Monitoring electrodes] Respiratory 42 H 46 H Rate Blood Pressure 94/64 Blood Pressure 94/64 116/58 L [Right Brachial artery] O2 Saturation 98 95 09/23/21 09/23/21 09/23/21 00:00 01:33 02:00 Temperature Heart Rate Heart Rate [ 117 H 111 H Monitoring electrodes] Respiratory 41 H 37 H Rate Blood Pressure Blood Pressure 76/56 L 96/54 L 83/57 L [Right Brachial artery] O2 Saturation 100 96 09/23/21 09/23/21 09/23/21 03:00 04:00 05:00 Temperature Heart Rate Heart Rate [ 109 H 113 H 103 H Monitoring electrodes] Respiratory 34 H 39 H 36 H Rate Blood Pressure Blood Pressure 81/55 L 81/57 L 75/53 L [Right Brachial artery] O2 Saturation 97 98 93 09/23/21 09/23/21 09/23/21 06:00 07:00 08:00 Temperature 36.5 C Heart Rate Heart Rate [ 107 H 100 109 H Monitoring electrodes] Respiratory 41 H 34 H 35 H Rate Blood Pressure Blood Pressure 84/52 L 86/51 L 81/57 L [Right Brachial artery] O2 Saturation 94 94 96 09/23/21 09/23/21 09/23/21 08:27 09:00 10:00 Temperature Heart Rate 105 H Heart Rate [ 103 H 103 H Monitoring electrodes] Respiratory 33 H 35 H Rate Blood Pressure Blood Pressure 80/56 L 83/56 L [Right Brachial artery] O2 Saturation 96 96 09/23/21 09/23/21 09/23/21 11:00 12:00 13:36 Temperature Heart Rate Heart Rate [ 108 H 107 H Monitoring electrodes] Respiratory 38 H 38 H Rate Blood Pressure Blood Pressure 93/58 L 87/60 L 77/59 L [Right Brachial artery] O2 Saturation 97 95 09/23/21 09/23/21 09/23/21 14:00 15:00 16:00 Temperature Heart Rate Heart Rate [ 105 H 98 102 H Monitoring electrodes] Respiratory 38 H 35 H 37 H Rate Blood Pressure Blood Pressure 76/51 L 90/62 85/53 L [Right Brachial artery] O2 Saturation 94 93 94 09/23/21 16:18 Temperature 36.3 C L Heart Rate Heart Rate [ Monitoring electrodes] Respiratory Rate Blood Pressure Blood Pressure [Right Brachial artery] O2 Saturation Oxygen O2 Source Room air I&O (Last 24 Hrs): Intake and Output Totals x24h 09/21/21 09/22/21 09/23/21 23:59 23:59 23:59 Intake Total 4299.584 3923.667 3123.333 Output Total 5360 3145 6286 Balance -1060.416 778.667 -3162.667 - Results Results: Laboratory Results WBC 12.0 x10^3/uL (4.8-10.8) H 09/23/21 04:15 RBC 3.92 10^6/uL (4.70-6.10) L 09/23/21 04:15 Hgb 13.0 g/dL (14.0-18.0) L 09/23/21 04:15 Hct 38.1 % (42.0-52.0) L 09/23/21 04:15 MCV 97.2 fL (80.0-94.0) H 09/23/21 04:15 MCH 33.2 pg (27.0-31.0) H 09/23/21 04:15 MCHC 34.1 g/dL (32.0-36.0) 09/23/21 04:15 RDW 18.6 % (12.0-15.0) H 09/23/21 04:15 Plt Count 75 10^3/uL (130-450) L 09/23/21 04:15 MPV 11.4 fL (7.4-11.4) 09/23/21 04:15 Neut # (Auto) Not Reportable 09/23/21 04:15 Lymph # (Auto) Not Reportable 09/23/21 04:15 [place] # (Auto) Not Reportable 09/23/21 04:15 Eos # (Auto) Not Reportable 09/23/21 04:15 Baso # (Auto) Not Reportable 09/23/21 04:15 Absolute Nucleated RBC Not Reportable 09/23/21 04:15 Total Counted 100 09/23/21 04:15 Band Neuts % (Manual) 22 % (0-10) H 09/23/21 04:15 Abnorm Lymph % (Manual) 0 % 09/23/21 04:15 Metamyelocytes % 1 % (-0) H 09/23/21 04:15 Myelocytes % 1 % (-0) H 09/23/21 04:15 Nucleated RBC % Not Reportable 09/23/21 04:15 Neutrophils # (Manual) 8.2 10^3/uL (1.5-6.6) H 09/23/21 04:15 Lymphocytes # (Manual) 2.5 10^3/uL (1.5-3.5) 09/23/21 04:15 Monocytes # (Manual) 1.1 10^3/uL (0.0-1.0) H 09/23/21 04:15 Eosinophils # (Manual) 0.0 10^3/uL (0-0.7) 09/23/21 04:15 Basophils # (Manual) 0.0 10^3/uL (0-0.1) 09/23/21 04:15 Differential Comment MANUAL DIFFERENTIAL 09/23/21 04:15 Manual Slide Review Indicated 09/18/21 20:50 WBC Morphology NORMAL APPEARANCE (NORMAL) 09/22/21 04:35 Platelet Estimate DECREASED (<130,000) (NORMAL) 09/23/21 04:15 Platelet Morphology NORMAL APPEARANCE (NORMAL) 09/22/21 04:35 RBC Morph Micro Appear NORMAL APPEARANCE (NORMAL) 09/23/21 04:15 D-Dimer 925.3 ng/mL (200.0-255.0) H 09/18/21 20:50 Bld Gas Analysis Time 1212 09/20/21 12:00 Sample Site RIGHT RADIAL 09/20/21 12:00 ABG pH 7.43 (7.35-7.45) 09/20/21 12:00 ABG pCO2 23 mmHg (34-45) L* 09/20/21 12:00 ABG pO2 84 mmHg (80-100) 09/20/21 12:00 ABG HCO3 14.6 mmol/L (22.0-26.0) L 09/20/21 12:00 ABG Total CO2 15.3 MMOL/L (21.0-29.0) L 09/20/21 12:00 ABG O2 Saturation 97 % (94-98) 09/20/21 12:00 ABG Base Excess -7.8 mmol/L (-2.0-3.0) L 09/20/21 12:00 Pineda Test POSITIVE 09/20/21 12:00 VBG pH 7.403 (7.31-7.41) 09/23/21 14:37 VBG pCO2 25.5 mmHg (41-51) L 09/23/21 14:37 VBG pO2 33.6 mmHg (25-47) 09/23/21 14:37 VBG HCO3 15.5 mmol/L (23-28) L 09/23/21 14:37 VBG Total CO2 16.3 mmol/L (24-29) L 09/23/21 14:37 VBG O2 Saturation 72.0 % (60-80) 09/23/21 14:37 VBG Base Excess -7.6 mmol/L (-2 - +2) L 09/23/21 14:37 Ionized Calcium Cancelled 09/23/21 08:27 Room Air YES 09/20/21 12:00 O2 Delivery Device BiPAP 09/18/21 21:15 FiO2 100.00 09/18/21 21:15 EPAP 5 cmH2O 09/18/21 21:15 IPAP 12 cmH2O 09/18/21 21:15 Sodium 149 mmol/L (135-145) H 09/23/21 04:15 Potassium 4.0 mmol/L (3.5-5.0) 09/23/21 04:15 Potassium 4.1 mmol/L (3.5-5.0) 09/23/21 04:15 Chloride 125 mmol/L (101-111) H* 09/23/21 04:15 Carbon Dioxide 12 mmol/L (21-32) L* 09/23/21 04:15 Anion Gap 12.0 (6-13) 09/23/21 04:15 BUN 45 mg/dL (6-20) H 09/23/21 04:15 Creatinine 1.2 mg/dL (0.6-1.2) 09/23/21 04:15 Estimated GFR (MDRD) 59 (>89) L 09/23/21 04:15 Glucose 127 mg/dL (70-100) H 09/23/21 04:15 Lactic Acid 4.4 mmol/L (0.5-2.2) H* 09/23/21 11:07 Calcium 7.6 mg/dL (8.5-10.3) L 09/23/21 04:15 Calcium 7.7 mg/dL (8.5-10.3) L 09/23/21 04:15 Phosphorus 3.3 mg/dL (2.5-4.6) 09/23/21 04:15 Magnesium 2.1 mg/dL (1.7-2.8) 09/23/21 04:15 Total Bilirubin 1.5 mg/dL (0.2-1.0) H 09/18/21 20:50 AST < 10 IU/L (10-42) L 09/18/21 20:50 ALT < 10 IU/L (10-60) L 09/18/21 20:50 Alkaline Phosphatase 58 IU/L (42-121) 09/18/21 20:50 Troponin I High Sens 56.4 ng/L (2.3-19.7) H* 09/19/21 20:39 B-Natriuretic Peptide 149 pg/mL (5-100) H 09/18/21 20:50 Total Protein 6.2 g/dL (6.7-8.2) L 09/18/21 20:50 Albumin 2.7 g/dL (3.2-5.5) L 09/18/21 20:50 Globulin 3.5 g/dL (2.1-4.2) 09/18/21 20:50 Albumin/Globulin Ratio 0.8 (1.0-2.2) L 09/18/21 20:50 Lipase 17 U/L (22-51) L 09/18/21 20:50 Nasal Adenovirus (PCR) NOT DETECTED 09/18/21 21:15 Nasal B. parapertussis DNA (PCR) NOT DETECTED 09/18/21 21:15 Nasal Coronavir 229E PCR NOT DETECTED 09/18/21 21:15 Nasal Coronavir HKU1 PCR NOT DETECTED 09/18/21 21:15 Nasal Coronavir NL63 PCR NOT DETECTED 09/18/21 21:15 Nasal Coronavir OC43 PCR NOT DETECTED 09/18/21 21:15 Nasal Enterovir/Rhinovir PCR NOT DETECTED 09/18/21 21:15 Nasal Influenza B PCR NOT DETECTED 09/18/21 21:15 Nasal Influenza A PCR NOT DETECTED 09/18/21 21:15 Nasal Parainfluen 1 PCR NOT DETECTED 09/18/21 21:15 Nasal Parainfluen 2 PCR NOT DETECTED 09/18/21 21:15 Nasal Parainfluen 3 PCR NOT DETECTED 09/18/21 21:15 Nasal Parainfluen 4 PCR NOT DETECTED 09/18/21 21:15 Nasal RSV (PCR) NOT DETECTED 09/18/21 21:15 Nasal Screen MRSA (PCR) NEGATIVE (NEGATIVE) 09/18/21 23:50 Nasal B.pertussis DNA PCR NOT DETECTED 09/18/21 21:15 Nasal C.pneumoniae (PCR) NOT DETECTED 10/29/21 21:15 [place] Human Metapneumo PCR NOT DETECTED 09/18/21 21:15 Nasal M.pneumoniae (PCR) NOT DETECTED 09/18/21 21:15 Nasal SARS-CoV-2 (PCR) NOT DETECTED 09/18/21 21:15 Stl C. diff Tox B Gene NEGATIVE (NEGATIVE) 09/19/21 11:50 Last Dose Date 09/2009/21/21 05:25 Last Dose Time 1401 09/21/21 05:25 Digoxin 0.8 ng/mL 09/21/21 05:25 Ref Lab Test Result REPORT 09/19/21 11:50 - Procedures Procedures: Procedures EXCISION OF SIGMOID COLON, ENDO, DIAGN (06/17/21)
--- NOTE | 2021-09-23 16:46 | PHARMACY PROGRESS NOTE ---
- Therapy Status Vancomycin regimen day #: 1 Therapy status: Awaiting steady state Basis for treatment: Empirical Treatment indication: Sharp increase in WBC; possible sepsis Trough goal: 15-20 Concurrent antibiotics: Zosyn - LEONIDES Risk Risk level for Acute Kidney Injury: High Acute Kidney Injury risk factors: Piperacillin/Tozobactam, Goal trough >15, Adm ission to ICU, Acute hypotensive event, Sepsis - Monitoring and Recommendation Clinical response to treatment: I&O Previous 24 hours 09/21/21 09/22/21 09/23/21 23:59 23:59 23:59 Intake Total 4299.584 3923.667 3123.333 Output Total 5360 3145 6286 Balance -1060.416 028.965 -6213.665 Lab Results 09/23/21 09/22/21 09/21/21 04:15 04:35 05:25 BUN 45 H 28 H 26 H Creatinine 1.2 1.1 1.0 Estimated GFR (MDRD) 59 L 65 L 73 L 09/20/21 09/19/21 09/18/21 04:50 04:50 20:50 BUN 32 H 24 H 19 Creatinine 1.3 H 1.7 H 2.2 H Estimated GFR (MDRD) 54 L 40 L 29 L Cultures 09/18/21 20:50 Blood Blood Culture - Preliminary NO GROWTH AFTER 2 DAYS Monitoring plan: Daily serum creatinine, Draw trough early, Suggest ongoing fluid replacement Next trough due prior to maintenance dose #: 3 Next trough due (date/time): 09/26/21 @ 1330 Areas for additional monitoring: IV to PO when appropriate, Therapy de- escalation based on culture results Pharmacy recommendation: Continue current regime
[2021-09-23] MEDS ORDERED: PIPERACILLIN/TAZOBACTAM 3.375 GM in SODIUM CHLORIDE 0.9% MINIBAG 100 ML IV SCH (17:00)
[2021-09-23] MEDS ORDERED: VANCOMYCIN INJ 1 GM, VANCOMYCIN INJ 500 MG in SODIUM CHLORIDE 0.9% 500 ML IV ONE (18:00)
[2021-09-23] MEDS: TPN (CLINIMIX E 5/15) 2,000 ML with MULTIVITAMIN 10 ML, TRACE ELEMENTS 1 ML IV SCH ×3 (18:43)
[2021-09-23] MEDS ORDERED: FAT EMUL/SOY/MCT/OLIV/FISH OIL 50 GM/250 ML BAG IV SCH (19:00)
[2021-09-23] MEDS: PIPERACILLIN/TAZOBACTAM 3.375 GM in SODIUM CHLORIDE 0.9% MINIBAG 100 ML IV SCH (20:47)
[2021-09-24] MEDS: SODIUM CHLORIDE FLUSH 0.9% 10 ML SYRINGE IVP SCH ×4 (00:01→20:21)
[2021-09-24] MEDS: ONDANSETRON 4 MG/2 ML VIAL IVP PRN (00:06)
[2021-09-24] MEDS: PIPERACILLIN/TAZOBACTAM 3.375 GM in SODIUM CHLORIDE 0.9% MINIBAG 100 ML IV SCH ×3 (03:23→19:56)
[2021-09-24 05:09] LABS: CALCIUM, IONIZED 1.12 mmol/L (1.15-1.33); VBG PH 7.397 (7.31-7.41)
[2021-09-24 05:17] LABS: CALCIUM 7.4 mg/dL (8.5-10.3)
[2021-09-24 08:22] LABS: ALBUMIN 1.2 g/dL (3.2-5.5); ALBUMIN/GLOBULIN RATIO 0.5 (1.0-2.2); BILIRUBIN,TOTAL 0.5 mg/dL (0.2-1.0); CALCIUM 7.2 mg/dL (8.5-10.3); CREATININE 1.1 mg/dL (0.6-1.2); PHOSPHORUS 2.7 mg/dL (2.5-4.6); POTASSIUM 3.9 mmol/L (3.5-5.0); TOTAL PROTEIN 3.7 g/dL (6.7-8.2)
[2021-09-24 09:16] LABS: BASOPHILS # (AUTO) 0.1 10^3/uL (0.0-0.1); BASOPHILS % (AUTO) 1.4 %; EOSINOPHILS # (AUTO) 0.1 10^3/uL (0.0-0.7); HCT - HEMATOCRIT 29.2 % (42.0-52.0); LYMPHOCYTES # (AUTO) 0.4 10^3/uL (1.5-3.5); LYMPHOCYTES % (AUTO) 8.7 %; MEAN CORPUSCULAR HEMOGLOBIN 33.8 pg (27.0-31.0); MEAN CORPUSCULAR HGB CONC 34.2 g/dL (32.0-36.0); MEAN CORPUSCULAR VOLUME 98.6 fL (80.0-94.0); MEAN PLATELET VOLUME 11.9 fL (7.4-11.4); MONOCYTES # (AUTO) 0.7 10^3/uL (0.0-1.0); MONOCYTES % (AUTO) 13.1 %; NEUTROPHILS # (AUTO) 3.8 10^3/uL (1.5-6.6); NEUTROPHILS % (AUTO) 74.4 %; NRBC ABSOLUTE COUNT (AUTO) 0.04 x10^3/uL; NUCLEATED RED BLOOD CELLS AUTO 0.8 /100WBC; PLT - PLATELET COUNT 50 10^3/uL (130-450); RED BLOOD COUNT 2.96 10^6/uL (4.70-6.10); RED CELL DISTRIBUTION WIDTH 19.2 % (12.0-15.0); WHITE BLOOD COUNT 5.1 x10^3/uL (4.8-10.8)
[2021-09-24] MEDS: PANTOPRAZOLE 40 MG VIAL IVP SCH ×2 (09:16→20:21)
[2021-09-24] MEDS: DIGOXIN 500 MCG/2 ML AMP IVP SCH (09:16)
[2021-09-24 09:21] LABS: SLIDE REVIEW? Indicated
[2021-09-24] MEDS: ENOXAPARIN 40 MG/0.4 ML SYRINGE SUBQ SCH (09:52)
[2021-09-24 10:10] LABS: RBC MORPHOLOGY (MULTIPLE) 4+ ANISOCYTOSIS (NORMAL)
--- NOTE | 2021-09-24 10:49 | XRAY Report ---
PROCEDURE: Chest for Line Placement INDICATIONS: NGT PLACEMENT TECHNIQUE: 2 portable frontal views of the chest were performed. COMPARISON: 09/18/2021 FINDINGS: Surgical changes and devices: Enteric tube is noted with the tip inside port overlying the left uppe r quadrant over the expected location of the stomach. Surgical clips from prior cholecystectomy. Left -sided chest port with the tip projecting along the expected location of the superior cavoatrial junc tion, unchanged. Lungs and pleura: No pleural effusions or pneumothorax. Lungs are clear. Mediastinum: Mediastinal contours appear normal. Heart size is normal. Bones and chest wall: No suspicious bony lesions. Overlying soft tissues appear unremarkable. IMPRESSION: Enteric tube with tip and side-port overlying the left upper quadrant over the expected location of t he stomach. Reviewed by: Duncan Mayorga DO on 09/19/2021 6:56 AM BEAR Approved by: Duncan Mayorga DO on 09/19/2021 6:56 AM BEAR Station ID: [id number]
[2021-09-24] MEDS ORDERED: DEXTROSE 5% 1,000 ML IV SCH (12:00)
--- NOTE | 2021-09-24 12:20 | PROVIDER PROGRESS NOTE ---
Subjective - General Admit Date: 09/18/21 Procedure Date: 08/03/21 Post Op Days: 52 - Review of Systems General: positive: Weakness, Appetite (Improved.). negative: Fever, Chills HEENT: positive: No symptoms Pulmonary: positive: No symptoms Cardiovascular: positive: No symptoms. negative: Chest pain, Palpitations Gastrointestinal: positive: Abdominal pain (Slight on right side but better than yesterday.) Skin: positive: No symptoms Psychiatric: positive: Depression Objective - Patient Data Reviewed Vital Signs: Yes Vital Signs: Vital Signs x48h Temp Pulse Pulse Resp BP Pulse Ox 09/24/21 11:30 79 28 H 94/54 L 96 09/24/21 11:00 82 29 H 106/55 L 95 09/24/21 10:30 81 30 H 100/47 L 95 09/24/21 10:00 80 31 H 103/51 L 95 09/24/21 09:30 85 32 H 91/49 L 95 09/24/21 09:16 89 09/24/21 09:00 85 34 H 109/48 L 95 09/24/21 08:34 94 31 H 104/44 L 94 09/24/21 08:00 36.1 C L 91 31 H 107/51 L 95 09/24/21 07:30 91 31 H 109/51 L 95 09/24/21 07:00 93 29 H 97/50 L 94 09/24/21 06:00 85 32 H 99/49 L 95 09/24/21 05:00 36.2 C L 82 30 H 88/49 L 94 Weight: Weight 09/22/21 09/23/21 09/24/21 23:59 23:59 23:59 Weight (kg) 73.5 kg 74 kg 76.3 kg Intake & Output: Intake and Output Totals x24h 09/22/21 09/23/21 09/24/21 23:59 23:59 23:59 Intake Total 3923.667 5028.916 450 Output Total 3145 6853 2175 Balance 778.667 -1824.084 -1725 - Lab Results Lab Results: 09/24/21 09:11 09/24/21 04:18 Other Lab Results: Lab Results x24hrs 11/04/21 11/04/21 11/04/21 Range/Units 09:11 04:18 04:18 WBC 5.1 (4.8-10.8) x10^3/uL RBC 2.96 L (4.70-6.10) 10^6/uL Hgb 10.0 L (14.0-18.0) g/dL Hct 29.2 L (42.0-52.0) % MCV 98.6 H (80.0-94.0) fL MCH 33.8 H (27.0-31.0) pg MCHC 34.2 (32.0-36.0) g/dL RDW 19.2 H (12.0-15.0) % Plt Count 50 L (130-450) 10^3/uL MPV 11.9 H (7.4-11.4) fL Neut # (Auto) 3.8 (1.5-6.6) 10^3/uL Lymph # (Auto) 0.4 L (1.5-3.5) 10^3/uL [place] # (Auto) 0.7 (0.0-1.0) 10^3/uL Eos # (Auto) 0.1 (0.0-0.7) 10^3/uL Baso # (Auto) 0.1 (0.0-0.1) 10^3/uL Absolute Nucleated RBC 0.04 x10^3/uL Nucleated RBC % 0.8 /100WBC Manual Slide Review Indicated RBC Morph Micro Appear 4+ ANISOCYTOSIS (NORMAL) VBG pH (7.31-7.41) VBG pCO2 (41-51) mmHg VBG pO2 (25-47) mmHg VBG HCO3 (23-28) mmol/L VBG Total CO2 (24-29) mmol/L VBG O2 Saturation (60-80) % VBG Base Excess (-2 - +2) mmol/L Ionized Calcium (1.15-1.33) mmol/L Sodium 147 H (135-145) mmol/L Potassium 3.9 4.0 (3.5-5.0) mmol/L Chloride 123 H* (101-111) mmol/L Carbon Dioxide 16 L (21-32) mmol/L Anion Gap 8.0 (6-13) BUN 51 H (6-20) mg/dL Creatinine 1.1 (0.6-1.2) mg/dL Estimated GFR (MDRD) 65 L (>89) Glucose 162 H (70-100) mg/dL Calcium 7.2 L 7.4 L (8.5-10.3) mg/dL Phosphorus 2.7 (2.5-4.6) mg/dL Magnesium (1.7-2.8) mg/dL Total Bilirubin 0.5 (0.2-1.0) mg/dL AST 22 (10-42) IU/L ALT 21 (10-60) IU/L Alkaline Phosphatase 38 L (42-121) IU/L Total Protein 3.7 L (6.7-8.2) g/dL Albumin 1.2 L (3.2-5.5) g/dL Globulin 2.5 (2.1-4.2) g/dL Albumin/Globulin Ratio 0.5 L (1.0-2.2) Prealbumin 4 L (18-45) mg/dL 09/24/21 09/24/21 09/24/21 Range/Units 04:18 04:18 04:18 WBC (4.8-10.8) x10^3/uL RBC (4.70-6.10) 10^6/uL Hgb (14.0-18.0) g/dL Hct (42.0-52.0) % MCV (80.0-94.0) fL MCH (27.0-31.0) pg MCHC (32.0-36.0) g/dL RDW (12.0-15.0) % Plt Count (130-450) 10^3/uL MPV (7.4-11.4) fL Neut # (Auto) (1.5-6.6) 10^3/uL Lymph # (Auto) (1.5-3.5) 10^3/uL [place] # (Auto) (0.0-1.0) 10^3/uL Eos # (Auto) (0.0-0.7) 10^3/uL Baso # (Auto) (0.0-0.1) 10^3/uL Absolute Nucleated RBC x10^3/uL Nucleated RBC % /100WBC Manual Slide Review RBC Morph Micro Appear (NORMAL) VBG pH 7.397 (7.31-7.41) VBG pCO2 (41-51) mmHg VBG pO2 (25-47) mmHg VBG HCO3 (23-28) mmol/L VBG Total CO2 (24-29) mmol/L VBG O2 Saturation (60-80) % VBG Base Excess (-2 - +2) mmol/L Ionized Calcium 1.12 L (1.15-1.33) mmol/L Sodium (135-145) mmol/L Potassium (3.5-5.0) mmol/L Chloride (101-111) mmol/L Carbon Dioxide (21-32) mmol/L Anion Gap (6-13) BUN (6-20) mg/dL Creatinine (0.6-1.2) mg/dL Estimated GFR (MDRD) (>89) Glucose (70-100) mg/dL Calcium (8.5-10.3) mg/dL Phosphorus 2.7 (2.5-4.6) mg/dL Magnesium 2.3 (1.7-2.8) mg/dL Total Bilirubin (0.2-1.0) mg/dL AST (10-42) IU/L ALT (10-60) IU/L Alkaline Phosphatase (42-121) IU/L Total Protein (6.7-8.2) g/dL Albumin (3.2-5.5) g/dL Globulin (2.1-4.2) g/dL Albumin/Globulin Ratio (1.0-2.2) Prealbumin (18-45) mg/dL 09/23/21 Range/Units 14:37 WBC (4.8-10.8) x10^3/uL RBC (4.70-6.10) 10^6/uL Hgb (14.0-18.0) g/dL Hct (42.0-52.0) % MCV (80.0-94.0) fL MCH (27.0-31.0) pg MCHC (32.0-36.0) g/dL RDW (12.0-15.0) % Plt Count (130-450) 10^3/uL MPV (7.4-11.4) fL Neut # (Auto) (1.5-6.6) 10^3/uL Lymph # (Auto) (1.5-3.5) 10^3/uL [place] # (Auto) (0.0-1.0) 10^3/uL Eos # (Auto) (0.0-0.7) 10^3/uL Baso # (Auto) (0.0-0.1) 10^3/uL Absolute Nucleated RBC x10^3/uL Nucleated RBC % /100WBC Manual Slide Review RBC Morph Micro Appear (NORMAL) VBG pH 7.403 (7.31-7.41) VBG pCO2 25.5 L (41-51) mmHg VBG pO2 33.6 (25-47) mmHg VBG HCO3 15.5 L (23-28) mmol/L VBG Total CO2 16.3 L (24-29) mmol/L VBG O2 Saturation 72.0 (60-80) % VBG Base Excess -7.6 L (-2 - +2) mmol/L Ionized Calcium (1.15-1.33) mmol/L Sodium (135-145) mmol/L Potassium (3.5-5.0) mmol/L Chloride (101-111) mmol/L Carbon Dioxide (21-32) mmol/L Anion Gap (6-13) BUN (6-20) mg/dL Creatinine (0.6-1.2) mg/dL Estimated GFR (MDRD) (>89) Glucose (70-100) mg/dL Calcium (8.5-10.3) mg/dL Phosphorus (2.5-4.6) mg/dL Magnesium (1.7-2.8) mg/dL Total Bilirubin (0.2-1.0) mg/dL AST (10-42) IU/L ALT (10-60) IU/L Alkaline Phosphatase (42-121) IU/L Total Protein (6.7-8.2) g/dL Albumin (3.2-5.5) g/dL Globulin (2.1-4.2) g/dL Albumin/Globulin Ratio (1.0-2.2) Prealbumin (18-45) mg/dL - Imaging Results Radiology Imaging: positive: Final report received - Current Medications Current Medications: Current Medications Generic Name Dose Route Start Last Admin Trade Name Freq PRN Reason Stop Dose Admin Al Hydroxide/Mg Hydroxide 30 ml 09/22/21 20:39 09/22/21 21:00 Mag Hydrox/Al Hydrox/Simeth 30 Ml Udc PO 30 ml Q4HR PRN Administration INDIGESTION Digoxin 125 mcg 09/21/21 09:00 09/24/21 09:16 Digoxin 500 Mcg/2 Ml Amp IVP 125 mcg DAILY SPENCER Administration Enoxaparin Sodium 40 mg 09/19/21 09:00 09/24/21 09:52 Enoxaparin 40 Mg/0.4 Ml Syringe SUBQ Not Given DAILY SPENCER Diltiazem HCl 125 mg/ Dextrose 125 mls @ 5 mls/hr 09/22/21 22:00 09/23/21 17:51 IV 5 mg/hr .Q25H SPENCER 5 mls/hr Titration Protocol 5 MG/HR Multivitamins 10 ml/ TRACE 2,011 mls @ 83 mls/hr 09/23/21 19:00 09/23/21 18:43 ELEMENTS 1 ml/ Amino Ac/ IV 83 mls/hr Electrol/Dextrose/Calcium Q24H SPENCER Administration Protocol Fat Emulsion-Soy/MCT/[place]/Fish Oil 50 gm in 250 mls @ 21 mls/hr 09/23/21 19:00 09/24/21 07:44 Smoflipid 20% Iv Fat Emulsion IV Infused 1900 SPENCER Infusion Piperacillin Sod/Tazobactam 100 mls @ 25 mls/hr 09/23/21 20:00 09/24/21 11:27 Sod 3.375 gm/ Sodium Chloride IV 25 mls/hr Q8H SPENCER Administration Dextrose 1,000 mls @ 83.333 mls/hr 09/24/21 12:00 09/24/21 11:18 D5w IV 83.333 mls/hr .Q12H SPENCER Administration Morphine Sulfate 2 mg 09/18/21 22:41 09/21/21 00:20 Morphine 2 Mg/Ml Carpuject IVP 2 mg Q2HR PRN Administration Pain 8 to 10 Ondansetron HCl 4 mg 09/19/21 01:56 09/24/21 00:06 Ondansetron 4 Mg/2 Ml Vial IVP 4 mg Q4HR PRN Administration Nausea / Vomiting Oxycodone HCl 5 mg 09/18/21 22:41 09/19/21 16:40 Oxycodone 5 Mg Tablet PO 5 mg Q4HR PRN Administration Pain 5 to 7 Pantoprazole Sodium 40 mg 09/23/21 21:00 09/24/21 09:16 Pantoprazole 40 Mg Vial IVP 40 mg BID SPENCER Administration Sodium Chloride 10 ml 09/19/21 01:00 09/24/21 09:16 Sodium Chloride Flush 0.9% 10 Ml Syringe IVP 10 ml 0100,0900,1700 SPENCER Administration Sodium Chloride 10 ml 09/18/21 22:41 09/23/21 11:16 Sodium Chloride Flush 0.9% 10 Ml Syringe IVP 30 ml PRN PRN Administration NEEDED PER PROVIDER ORDERS - Physical Exam General Appearance: positive: No acute distress Eyes Bilateral: positive: No lid inflammation, Conjunctivae nml, No scleral icterus ENT: positive: Dry mucous membranes Neck: positive: Trachea midline Respiratory: positive: Other (Tachypnea markedly better.) Cardiovascular: positive: Regular rate & rhythm Abdomen: positive: Tenderness (Definitely decreased.) Skin: positive: Color nml Neurologic/Psychiatric: positive: Oriented x3 ABX Reporting Has patient been on IV antibiotics over the past 48 hours?: Yes Impression/Plan - Problem List Problem List: The patient is markedly better today with no tachycardia and tachypnea improved. On antibiotics and IVF as well as TPN. I expect that the neutropenic enterocolitis will heal with time and the support that is being provided. I do not think that surgery will be necessary but I will stay on the case peripherally just in case surgical intervention is indicated. Had a 45 minute long conversation with the patient's daughter yesterday about his care and expected clinical course.
[2021-09-24] MEDS ORDERED: SODIUM BICARBONATE 150 MEQ in DEXTROSE 5% 1,000 ML IV SCH (13:00)
--- NOTE | 2021-09-24 13:11 | PROVIDER PROGRESS NOTE ---
Assessment/Plan - Problem List (1) Metabolic acidosis with respiratory alkalosis Assessment/Plan: He had a high L.A at presentation but no infection was suspected and thus he was started on aggressive iv fluids using saline but no antibiotics. His high chloride and low CO2 are possibly from high amounts of saline rescusitation, causing hyperchloremic acidosis. Also, He is trying to compensate by ventilating off CO2 (and has tachypnea), but is not hypoxic. Continue present peripheral iv fluids for hydration, while he is NPO Continue empiric antibx started yesterday to cover GI source. Follow BMP daily or bid. I updated the daughter, Luz, at bedside on all matters today. (2) Small bowel obstruction Assessment/Plan: He needed reinsertion of an NG tube and 4.4 L was drained, now still suctioning. The patient is reporting that he is hungry. CT abd done yesterday reported achalasia. I then reviewed with the patient and daughter at bedside and 2 sons on speaker phone what achalasia means and they all said they have the symptoms and have all been told they have achalasia. No restart of diet because of continued obstruction. Continue NG to suction. We increased iv antiacids from daily to bid to prevent acid reflux symptoms/"hunger pains". Empiric iv antibiotics were started yesterday, when L.A. recurred and when WBC caleb. General surgery is following along with us. (3) Hypernatremia Assessment/Plan: This is likely from normal saline being administered at a high rate for several days and being n.p.o. therefore having free water deficit. Improving after NS was changed to free water (D5 iv) Follow BMP daily (4) Neutropenic colitis Assessment/Plan: As per General surgeon. Continue managing with ng tube for bowel decompression and with iv fluids. IV nutrition with tpn. (5) SVT (supraventricular tachycardia) Assessment/Plan: He has received many L of fluids for treating dehydration. He then got Digitalized for rate control. The Dig level was OK at 0.8. Did daily continues. HR was still elevated at 110-120 despite fluids and Dig. He was started on Diltiazem drip 2 days ago. HR is now controlled and BP not as "soft". Echo was done yesterday to assess chamber sizes (volume status) and LVEF. This showed normal chamber sizes and normal LV and RV function. Will transition to po meds for rate control when he is taking a diet. Thus, he needs to remain in ICU. (6) Moderate malnutrition Assessment/Plan: This patient has muscle wasting, loss of subcutaneous fat and temporal muscle wasting, and he had nutritional intake of <50% of recommended intake for 1 week. RDM to manage (7) Lactic acidosis Assessment/Plan: Resolved with iv fluids, iv tpn fluid and iv antibx started yesterday, and iv bicarb started this morning. (8) Chemotherapy induced neutropenia Assessment/Plan: Resolved. He now has elevated WBC - Current Meds Current Meds: Current Medications Generic Name Dose Route Start Last Admin Trade Name Freq PRN Reason Stop Dose Admin Al Hydroxide/Mg Hydroxide 30 ml 09/22/21 20:39 09/22/21 21:00 Mag Hydrox/Al Hydrox/Simeth 30 Ml Udc PO 30 ml Q4HR PRN Administration INDIGESTION Digoxin 125 mcg 09/21/21 09:00 09/24/21 09:16 Digoxin 500 Mcg/2 Ml Amp IVP 125 mcg DAILY SPENCER Administration Enoxaparin Sodium 40 mg 09/19/21 09:00 09/24/21 09:52 Enoxaparin 40 Mg/0.4 Ml Syringe SUBQ Not Given DAILY SPENCER Diltiazem HCl 125 mg/ Dextrose 125 mls @ 5 mls/hr 09/22/21 22:00 09/23/21 17:51 IV 5 mg/hr .Q25H SPENCER 5 mls/hr Titration Protocol 5 MG/HR Multivitamins 10 ml/ TRACE 2,011 mls @ 83 mls/hr 09/23/21 19:00 09/23/21 18:43 ELEMENTS 1 ml/ Amino Ac/ IV 83 mls/hr Electrol/Dextrose/Calcium Q24H SPENCER Administration Protocol Fat Emulsion-Soy/MCT/Kerrick/Fish Oil 50 gm in 250 mls @ 21 mls/hr 09/23/21 19:00 09/24/21 07:44 Smoflipid 20% Iv Fat Emulsion IV Infused 1900 SPENCER Infusion Piperacillin Sod/Tazobactam 100 mls @ 25 mls/hr 09/23/21 20:00 09/24/21 11:27 Sod 3.375 gm/ Sodium Chloride IV 25 mls/hr Q8H SPENCER Administration Morphine Sulfate 2 mg 09/18/21 22:41 09/21/21 00:20 Morphine 2 Mg/Ml Carpuject IVP 2 mg Q2HR PRN Administration Pain 8 to 10 Ondansetron HCl 4 mg 09/19/21 01:56 09/24/21 00:06 Ondansetron 4 Mg/2 Ml Vial IVP 4 mg Q4HR PRN Administration Nausea / Vomiting Oxycodone HCl 5 mg 09/18/21 22:41 09/19/21 16:40 Oxycodone 5 Mg Tablet PO 5 mg Q4HR PRN Administration Pain 5 to 7 Pantoprazole Sodium 40 mg 09/23/21 21:00 09/24/21 09:16 Pantoprazole 40 Mg Vial IVP 40 mg BID SPENCER Administration Sodium Chloride 10 ml 09/19/21 01:00 09/24/21 09:16 Sodium Chloride Flush 0.9% 10 Ml Syringe IVP 10 ml 0100,0900,1700 SPENCER Administration Sodium Chloride 10 ml 09/18/21 22:41 09/23/21 11:16 Sodium Chloride Flush 0.9% 10 Ml Syringe IVP 30 ml PRN PRN Administration NEEDED PER PROVIDER ORDERS - Lab Result Fish Bone Diagrams: 09/24/21 09:11 09/24/21 16:05 - Additional Planning My Orders: My Active Orders 09/23/21 19:00 Fat Emul/Soy/Mct/Oliv/Fish Oil [Smoflipid 20% IV Fat Emulsion] 50 gm in 250 ml IV 1900 Multivitamin [Infuvite] 10 ml Trace Elements [Tralement Vial] 1 ml TPN (Clinimix E 5/15) [Clinimix E 5%-15% Solution] 2,000 ml IV Q24H 09/23/21 20:00 Piperacillin/Tazobactam [Zosyn] 3.375 gm Sodium Chloride 0.9% Minibag [Normal Saline 0.9% Minibag] 100 ml IV Q8H 09/23/21 21:00 Pantoprazole [Protonix] 40 mg IVP BID 09/24/21 07:52 Blood Glucose Checks - NPO [RC] 0600,1200,1800,0000 Daily Weight [RC] DAILY 09/24/21 13:00 Dextrose 5% [D5w] 1,000 ml Sodium Bicarbonate 150 meq IV 100 mls/hr 09/24/21 14:00 Vancomycin Inj [Vancomycin] 1 gm Vancomycin Inj [Vancomycin Hcl] 250 mg Sodium Chloride 0.9% [Normal Saline 0.9%] 250 ml IV Q24H 09/24/21 16:00 BMP - BASIC METABOLIC PANEL [CHEM] Timed LACTIC ACID, VENOUS [CHEM] Timed 09/25/21 05:00 CBC - COMP BLD CT W/AUTO DIFF [HEME] DAILYLAB COMPREHENSIVE METABOLIC PANEL [CHEM] Routine MAGNESIUM [CHEM] Routine PHOSPHORUS [CHEM] Routine TRIGLYCERIDES [CHEM] Routine 09/26/21 05:00 CBC - COMP BLD CT W/AUTO DIFF [HEME] DAILYLAB MAGNESIUM [CHEM] Routine 09/26/21 15:30 VANCOMYCIN TROUGH [CHEM] Timed 09/27/21 05:00 CBC - COMP BLD CT W/AUTO DIFF [HEME] DAILYLAB COMPREHENSIVE METABOLIC PANEL [CHEM] Routine MAGNESIUM [CHEM] Routine PHOSPHORUS [CHEM] Routine PREALBUMIN [CHEM] Routine TRIGLYCERIDES [CHEM] Routine 09/28/21 05:00 CBC - COMP BLD CT W/AUTO DIFF [HEME] DAILYLAB 09/29/21 05:00 PREALBUMIN [CHEM] Routine TRIGLYCERIDES [CHEM] Routine 10/02/21 05:00 COMPREHENSIVE METABOLIC PANEL [CHEM] Routine MAGNESIUM [CHEM] Routine PHOSPHORUS [CHEM] Routine PREALBUMIN [CHEM] Routine TRIGLYCERIDES [CHEM] Routine Subjective - Subjective Patient Reports: Resting Comfortably, Other (appears fatigued) Nursing Reports: Other (Still tachypneic 22-33 RR) Objective Vital Signs: Vital Signs - 24 hr 09/23/21 09/23/21 09/23/21 13:36 14:00 15:00 Temperature Heart Rate Heart Rate [ 105 H 98 Monitoring electrodes] Respiratory 38 H 35 H Rate Blood Pressure 77/59 L 76/51 L 90/62 [Right Brachial artery] O2 Saturation 94 93 09/23/21 09/23/21 09/23/21 16:00 16:18 17:00 Temperature 36.3 C L Heart Rate Heart Rate [ 102 H 102 H Monitoring electrodes] Respiratory 37 H 32 H Rate Blood Pressure 85/53 L 80/54 L [Right Brachial artery] O2 Saturation 94 95 09/23/21 09/23/21 09/23/21 18:00 19:00 20:00 Temperature Heart Rate Heart Rate [ 92 89 87 Monitoring electrodes] Respiratory 32 H 30 H 28 H Rate Blood Pressure 87/48 L 78/54 L 90/51 L [Right Brachial artery] O2 Saturation 92 93 92 09/23/21 09/23/21 09/23/21 21:00 22:00 23:00 Temperature 36.0 C L Heart Rate Heart Rate [ 95 87 97 Monitoring electrodes] Respiratory 34 H 33 H 34 H Rate Blood Pressure 88/52 L 95/46 L 81/45 L [Right Brachial artery] O2 Saturation 92 100 96 09/24/21 09/24/21 09/24/21 00:00 01:00 02:00 Temperature Heart Rate Heart Rate [ 90 99 98 Monitoring electrodes] Respiratory 26 H 34 H 38 H Rate Blood Pressure 77/48 L 88/46 L 90/53 L [Right Brachial artery] O2 Saturation 96 96 96 09/24/21 09/24/21 09/24/21 02:30 03:00 03:30 Temperature 36.2 C L Heart Rate Heart Rate [ 87 84 Monitoring electrodes] Respiratory 31 H Rate Blood Pressure 91/51 L 94/45 L 104/47 L [Right Brachial artery] O2 Saturation 96 09/24/21 09/24/21 09/24/21 04:00 05:00 06:00 Temperature 36.2 C L Heart Rate Heart Rate [ 95 82 85 Monitoring electrodes] Respiratory 32 H 30 H 32 H Rate Blood Pressure 88/49 L 88/49 L 99/49 L [Right Brachial artery] O2 Saturation 96 94 95 09/24/21 09/24/21 09/24/21 07:00 07:30 08:00 Temperature 36.1 C L Heart Rate Heart Rate [ 93 91 91 Monitoring electrodes] Respiratory 29 H 31 H 31 H Rate Blood Pressure 97/50 L 109/51 L 107/51 L [Right Brachial artery] O2 Saturation 94 95 95 09/24/21 09/24/21 09/24/21 08:34 09:00 09:16 Temperature Heart Rate 89 Heart Rate [ 94 85 Monitoring electrodes] Respiratory 31 H 34 H Rate Blood Pressure 104/44 L 109/48 L [Right Brachial artery] O2 Saturation 94 95 09/24/21 09/24/21 09/24/21 09:30 10:00 10:30 Temperature Heart Rate Heart Rate [ 85 80 81 Monitoring electrodes] Respiratory 32 H 31 H 30 H Rate Blood Pressure 91/49 L 103/51 L 100/47 L [Right Brachial artery] O2 Saturation 95 95 95 09/24/21 09/24/21 09/24/21 11:00 11:30 12:00 Temperature 36.2 C L Heart Rate Heart Rate [ 82 79 78 Monitoring electrodes] Respiratory 29 H 28 H 30 H Rate Blood Pressure 106/55 L 94/54 L 97/47 L [Right Brachial artery] O2 Saturation 95 96 95 Oxygen O2 Source Nasal cannula I&O (Last 24 Hrs): Intake and Output Totals x24h 09/22/21 09/23/21 09/24/21 23:59 23:59 23:59 Intake Total 3923.667 5028.916 450 Output Total 3145 6853 2400 Balance 244.990 -0986.069 -7237 General: Alert, Other (Lethargic) HEENT: Mucous membr. moist/pink, Other (Cachectic) Neck: Supple Neuro: Alert, Non Focal, Other (generalized weak) Cardiovascular: Regular rate, No murmurs Respiratory: No respiratory distress, Breath sounds nml (anyteriorly) Abdomen: Soft (No bowel tones), No tenderness Extremities: No clubbing, No edema, No tenderness/swelling - Results Results: Laboratory Results WBC 5.1 x10^3/uL (4.8-10.8) 09/24/21 09:11 RBC 2.96 10^6/uL (4.70-6.10) L 09/24/21 09:11 Hgb 10.0 g/dL (14.0-18.0) L 09/24/21 09:11 Hct 29.2 % (42.0-52.0) L 09/24/21 09:11 MCV 98.6 fL (80.0-94.0) H 09/24/21 09:11 MCH 33.8 pg (27.0-31.0) H 09/24/21 09:11 MCHC 34.2 g/dL (32.0-36.0) 09/24/21 09:11 RDW 19.2 % (12.0-15.0) H 09/24/21 09:11 Plt Count 50 10^3/uL (130-450) L 09/24/21 09:11 MPV 11.9 fL (7.4-11.4) H 09/24/21 09:11 Neut # (Auto) 3.8 10^3/uL (1.5-6.6) 09/24/21 09:11 Lymph # (Auto) 0.4 10^3/uL (1.5-3.5) L 09/24/21 09:11 Esmeralda # (Auto) 0.7 10^3/uL (0.0-1.0) 09/24/21 09:11 Eos # (Auto) 0.1 10^3/uL (0.0-0.7) 09/24/21 09:11 Baso # (Auto) 0.1 10^3/uL (0.0-0.1) 09/24/21 09:11 Absolute Nucleated RBC 0.04 x10^3/uL 09/24/21 09:11 Total Counted 100 09/23/21 04:15 Band Neuts % (Manual) 22 % (0-10) H 09/23/21 04:15 Abnorm Lymph % (Manual) 0 % 09/23/21 04:15 Metamyelocytes % 1 % (-0) H 09/23/21 04:15 Myelocytes % 1 % (-0) H 09/23/21 04:15 Nucleated RBC % 0.8 /100WBC 09/24/21 09:11 Neutrophils # (Manual) 8.2 10^3/uL (1.5-6.6) H 09/23/21 04:15 Lymphocytes # (Manual) 2.5 10^3/uL (1.5-3.5) 09/23/21 04:15 Monocytes # (Manual) 1.1 10^3/uL (0.0-1.0) H 09/23/21 04:15 Eosinophils # (Manual) 0.0 10^3/uL (0-0.7) 09/23/21 04:15 Basophils # (Manual) 0.0 10^3/uL (0-0.1) 09/23/21 04:15 Differential Comment MANUAL DIFFERENTIAL 09/23/21 04:15 Manual Slide Review Indicated 09/24/21 09:11 WBC Morphology NORMAL APPEARANCE (NORMAL) 09/22/21 04:35 Platelet Estimate DECREASED (<130,000) (NORMAL) 09/23/21 04:15 Platelet Morphology NORMAL APPEARANCE (NORMAL) 09/22/21 04:35 RBC Morph Micro Appear 4+ ANISOCYTOSIS (NORMAL) 09/24/21 09:11 D-Dimer 925.3 ng/mL (200.0-255.0) H 09/18/21 20:50 Bld Gas Analysis Time 1212 09/20/21 12:00 Sample Site RIGHT RADIAL 09/20/21 12:00 ABG pH 7.43 (7.35-7.45) 09/20/21 12:00 ABG pCO2 23 mmHg (34-45) L* 09/20/21 12:00 ABG pO2 84 mmHg (80-100) 09/20/21 12:00 ABG HCO3 14.6 mmol/L (22.0-26.0) L 09/20/21 12:00 ABG Total CO2 15.3 MMOL/L (21.0-29.0) L 09/20/21 12:00 ABG O2 Saturation 97 % (94-98) 09/20/21 12:00 ABG Base Excess -7.8 mmol/L (-2.0-3.0) L 09/20/21 12:00 Pineda Test POSITIVE 09/20/21 12:00 VBG pH 7.397 (7.31-7.41) 09/24/21 04:18 VBG pCO2 25.5 mmHg (41-51) L 09/23/21 14:37 VBG pO2 33.6 mmHg (25-47) 09/23/21 14:37 VBG HCO3 15.5 mmol/L (23-28) L 09/23/21 14:37 VBG Total CO2 16.3 mmol/L (24-29) L 09/23/21 14:37 VBG O2 Saturation 72.0 % (60-80) 09/23/21 14:37 VBG Base Excess -7.6 mmol/L (-2 - +2) L 09/23/21 14:37 Ionized Calcium 1.12 mmol/L (1.15-1.33) L 09/24/21 04:18 Room Air YES 09/20/21 12:00 O2 Delivery Device BiPAP 09/18/21 21:15 FiO2 100.00 09/18/21 21:15 EPAP 5 cmH2O 09/18/21 21:15 IPAP 12 cmH2O 09/18/21 21:15 Sodium 147 mmol/L (135-145) H 09/24/21 04:18 Potassium 3.9 mmol/L (3.5-5.0) 09/24/21 04:18 Potassium 4.0 mmol/L (3.5-5.0) 09/24/21 04:18 Chloride 123 mmol/L (101-111) H* 09/24/21 04:18 Carbon Dioxide 16 mmol/L (21-32) L 09/24/21 04:18 Anion Gap 8.0 (6-13) 09/24/21 04:18 BUN 51 mg/dL (6-20) H 09/24/21 04:18 Creatinine 1.1 mg/dL (0.6-1.2) 09/24/21 04:18 Estimated GFR (MDRD) 65 (>89) L 09/24/21 04:18 Glucose 162 mg/dL (70-100) H 09/24/21 04:18 Lactic Acid 4.4 mmol/L (0.5-2.2) H* 09/23/21 11:07 Calcium 7.2 mg/dL (8.5-10.3) L 09/24/21 04:18 Calcium 7.4 mg/dL (8.5-10.3) L 09/24/21 04:18 Phosphorus 2.7 mg/dL (2.5-4.6) 09/24/21 04:18 Phosphorus 2.7 mg/dL (2.5-4.6) 09/24/21 04:18 Magnesium 2.3 mg/dL (1.7-2.8) 09/24/21 04:18 Total Bilirubin 0.5 mg/dL (0.2-1.0) 09/24/21 04:18 AST 22 IU/L (10-42) 09/24/21 04:18 ALT 21 IU/L (10-60) 09/24/21 04:18 Alkaline Phosphatase 38 IU/L (42-121) L 09/24/21 04:18 Troponin I High Sens 56.4 ng/L (2.3-19.7) H* 09/19/21 20:39 B-Natriuretic Peptide 149 pg/mL (5-100) H 09/18/21 20:50 Total Protein 3.7 g/dL (6.7-8.2) L 09/24/21 04:18 Albumin 1.2 g/dL (3.2-5.5) L 09/24/21 04:18 Globulin 2.5 g/dL (2.1-4.2) 09/24/21 04:18 Albumin/Globulin Ratio 0.5 (1.0-2.2) L 09/24/21 04:18 Prealbumin 4 mg/dL (18-45) L 09/24/21 04:18 Lipase 17 U/L (22-51) L 09/18/21 20:50 Nasal Adenovirus (PCR) NOT DETECTED 09/18/21 21:15 Nasal B. parapertussis DNA (PCR) NOT DETECTED 09/18/21 21:15 Nasal Coronavir 229E PCR NOT DETECTED 09/18/21 21:15 Nasal Coronavir HKU1 PCR NOT DETECTED 09/18/21 21:15 Nasal Coronavir NL63 PCR NOT DETECTED 09/18/21 21:15 Nasal Coronavir OC43 PCR NOT DETECTED 09/18/21 21:15 Nasal Enterovir/Rhinovir PCR NOT DETECTED 09/18/21 21:15 Nasal Influenza B PCR NOT DETECTED 09/18/21 21:15 Nasal Influenza A PCR NOT DETECTED 09/18/21 21:15 Nasal Parainfluen 1 PCR NOT DETECTED 09/18/21 21:15 Nasal Parainfluen 2 PCR NOT DETECTED 09/18/21 21:15 Nasal Parainfluen 3 PCR NOT DETECTED 09/18/21 21:15 Nasal Parainfluen 4 PCR NOT DETECTED 09/18/21 21:15 Nasal RSV (PCR) NOT DETECTED 09/18/21 21:15 Nasal Screen MRSA (PCR) NEGATIVE (NEGATIVE) 09/18/21 23:50 Nasal B.pertussis DNA PCR NOT DETECTED 09/18/21 21:15 Nasal C.pneumoniae (PCR) NOT DETECTED 09/18/21 21:15 Sohail Human Metapneumo PCR NOT DETECTED 09/18/21 21:15 Nasal M.pneumoniae (PCR) NOT DETECTED 09/18/21 21:15 Nasal SARS-CoV-2 (PCR) NOT DETECTED 09/18/21 21:15 Stl C. diff Tox B Gene NEGATIVE (NEGATIVE) 09/19/21 11:50 Last Dose Date 09/2009/21/21 05:25 Last Dose Time 1401 09/21/21 05:25 Digoxin 0.8 ng/mL 09/21/21 05:25 Ref Lab Test Result REPORT 09/19/21 11:50 - Procedures Procedures: Procedures EXCISION OF SIGMOID COLON, ENDO, DIAGN (06/17/21)
[2021-09-24] MEDS ORDERED: VANCOMYCIN INJ 1 GM, VANCOMYCIN INJ 250 MG in SODIUM CHLORIDE 0.9% 250 ML IV SCH (14:00)
[2021-09-24 16:21] LABS: CALCIUM 6.9 mg/dL (8.5-10.3); CREATININE 1.1 mg/dL (0.6-1.2); POTASSIUM 3.6 mmol/L (3.5-5.0)
[2021-09-24] MEDS: TPN (CLINIMIX E 5/15) 2,000 ML with MULTIVITAMIN 10 ML, TRACE ELEMENTS 1 ML IV SCH ×3 (18:49)
[2021-09-24] MEDS: PHOSPHO IV SCH (18:50)
[2021-09-24] MEDS: FAT EMULSION IV SCH (18:50)
[2021-09-24] MEDS: SOY IV SCH (18:50)
[2021-09-24] MEDS: OLIVE IV SCH (18:50)
[2021-09-24] MEDS: diltiaZEM INJ 125 MG in DEXTROSE 5% 100 ML IV SCH (21:27)
[2021-09-25] MEDS: MORPHINE 2 MG/ML CARPUJECT IVP PRN (02:56)
[2021-09-25] MEDS: SODIUM CHLORIDE FLUSH 0.9% 10 ML SYRINGE IVP PRN (02:57)
[2021-09-25] MEDS: PIPERACILLIN/TAZOBACTAM 3.375 GM in SODIUM CHLORIDE 0.9% MINIBAG 100 ML IV SCH ×3 (03:55→19:44)
[2021-09-25 05:09] LABS: EOSINOPHILS % (AUTO) 1.9 %; HCT - HEMATOCRIT 29.8 % (42.0-52.0); LYMPHOCYTES % (AUTO) 8.2 %; MEAN CORPUSCULAR HEMOGLOBIN 33.3 pg (27.0-31.0); MEAN CORPUSCULAR HGB CONC 33.6 g/dL (32.0-36.0); MEAN CORPUSCULAR VOLUME 99.3 fL (80.0-94.0); MEAN PLATELET VOLUME 11.8 fL (7.4-11.4); MONOCYTES % (AUTO) 7.9 %; NEUTROPHILS % (AUTO) 78.4 %; PLT - PLATELET COUNT 61 10^3/uL (130-450); RED CELL DISTRIBUTION WIDTH 19.4 % (12.0-15.0); WHITE BLOOD COUNT 5.9 x10^3/uL (4.8-10.8)
[2021-09-25 05:11] LABS: ABNORMAL LYMPHS % (MANUAL) 0 %
[2021-09-25 05:27] LABS: ALBUMIN 1.2 g/dL (3.2-5.5); ALBUMIN/GLOBULIN RATIO 0.5 (1.0-2.2); BILIRUBIN,TOTAL 0.3 mg/dL (0.2-1.0); CREATININE 0.9 mg/dL (0.6-1.2); MAGNESIUM 2.2 mg/dL (1.7-2.8); PHOSPHORUS 2.7 mg/dL (2.5-4.6); POTASSIUM 3.3 mmol/L (3.5-5.0); TOTAL PROTEIN 3.5 g/dL (6.7-8.2)
[2021-09-25 05:33] LABS: BAND NEUTROPHILS % (MANUAL) 9 %; DIFFERENTIAL COMMENT MANUAL DIFFERENTIAL; EOSINOPHILS # (MANUAL) 0.1 10^3/uL (0-0.7); LYMPHOCYTES # (MANUAL) 0.5 10^3/uL (1.5-3.5); LYMPHOCYTES % (MANUAL) 9 %; MONOCYTES # (MANUAL) 0.5 10^3/uL (0.0-1.0); NEUTROPHILS # (MANUAL) 4.8 10^3/uL (1.5-6.6); PLATELET ESTIMATE, MANUAL DECREASED (<130,000) (NORMAL); PLATELET MORPHOLOGY NORMAL APPEARANCE (NORMAL); RBC MORPHOLOGY (MULTIPLE) 1+ ANISOCYTOSIS (NORMAL); WBC MORPHOLOGY (MULTIPLE) NORMAL APPEARANCE (NORMAL)
[2021-09-25 06:32] LABS: CALCIUM, IONIZED 1.08 mmol/L (1.15-1.33); VBG PH 7.427 (7.31-7.41)
[2021-09-25] MEDS: POTASSIUM CHLOR 10 MEQ/100 ML 10 MEQ/100 ML BAG IV SCH ×8 (06:54→23:20)
[2021-09-25] MEDS: ENOXAPARIN 40 MG/0.4 ML SYRINGE SUBQ SCH (09:07)
[2021-09-25] MEDS: CALCIUM CARBONATE CHEW 500 MG TABLET PO SCH ×2 (09:08→11:53)
[2021-09-25] MEDS: SODIUM CHLORIDE FLUSH 0.9% 10 ML SYRINGE IVP SCH ×3 (09:09→19:52)
[2021-09-25] MEDS: PANTOPRAZOLE 40 MG VIAL IVP SCH ×2 (09:17→19:52)
[2021-09-25] MEDS: DEXTROSE 5% 1,000 ML IV SCH ×2 (10:28→21:07)
--- NOTE | 2021-09-25 14:29 | PROVIDER PROGRESS NOTE ---
Subjective - Prog Note Date Prog Note Date: 09/25/21 - Subjective Subjective: He feels improved.No nausea or vomiting. Denies any abdominal pain. He was able to have a bowel movement. Current Medications - Current Medications Current Medications: Active Medications Acetaminophen (Acetaminophen 325 Mg Tablet) 650 mg PO Q4HR PRN PRN Reason: Pain 1 to 4 Al Hydroxide/Mg Hydroxide (Mag Hydrox/Al Hydrox/Simeth 30 Ml Udc) 30 ml PO Q4HR PRN PRN Reason: INDIGESTION Last Admin: 09/22/21 21:00 Dose: 30 ml Documented by: Albuterol (Albuterol Neb 2.5 Mg/3 Ml) 2.5 mg INH Q4HR PRN PRN Reason: Wheezing Enoxaparin Sodium (Enoxaparin 40 Mg/0.4 Ml Syringe) 40 mg SUBQ DAILY [facility] TO [facility] Last Admin: 09/25/21 09:07 Dose: 40 mg Documented by: Diltiazem HCl 125 mg/ Dextrose 125 mls @ 5 mls/hr IV .Q25H [facility] TO [facility]; Protocol Last Titration: 09/25/21 08:03 Dose: 2.5 mg/hr, 2.5 mls/hr Documented by: Multivitamins 10 ml/ TRACE ELEMENTS 1 ml/ Amino Ac/Electrol/Dextrose/Calcium 2,011 mls @ 83 mls/hr IV Q24H [facility] TO [facility]; Protocol Last Infusion: 09/25/21 00:00 Dose: 83 mls/hr Documented by: Piperacillin Sod/Tazobactam (Sod 3.375 gm/ Sodium Chloride) 100 mls @ 25 mls/hr IV Q8H [facility] TO [facility] Last Admin: 09/25/21 12:35 Dose: 25 mls/hr Documented by: FAT EMULSION/OLIVE/SOY/PHOSPHO (Clinolipid 20% Iv Fat Emulsion) 50 gm in 250 mls @ 21 mls/hr IV 1900 [facility] TO [facility] Last Infusion: 09/25/21 06:53 Dose: Infused Documented by: Dextrose (D5w) 1,000 mls @ 100 mls/hr IV .Q10H [facility] TO [facility] Last Admin: 09/25/21 10:28 Dose: 100 mls/hr Documented by: Mineral Oil (Min Oil/Dimethicon/Coconut Oil 92 Gm Tube) 1 applic TOP PRN PRN PRN Reason: Skin Care Morphine Sulfate (Morphine 2 Mg/Ml Carpuject) 2 mg IVP Q2HR PRN PRN Reason: Pain 8 to 10 Last Admin: 09/25/21 02:56 Dose: 2 mg Documented by: Ondansetron HCl (Ondansetron Odt 4 Mg Tablet) 4 mg TL Q6HR PRN PRN Reason: Nausea / Vomiting Ondansetron HCl (Ondansetron 4 Mg/2 Ml Vial) 4 mg IVP Q4HR PRN PRN Reason: Nausea / Vomiting Last Admin: 09/24/21 00:06 Dose: 4 mg Documented by: Oxycodone HCl (Oxycodone 5 Mg Tablet) 5 mg PO Q4HR PRN PRN Reason: Pain 5 to 7 Last Admin: 09/19/21 16:40 Dose: 5 mg Documented by: Pantoprazole Sodium (Pantoprazole 40 Mg Vial) 40 mg IVP BID [facility] Last Admin: 09/25/21 09:17 Dose: 40 mg Documented by: Sodium Chloride (Sodium Chloride Flush 0.9% 10 Ml Syringe) 10 ml IVP 0100,0900,1700 [facility] Last Admin: 09/25/21 09:09 Dose: 10 ml Documented by: Sodium Chloride (Sodium Chloride Flush 0.9% 10 Ml Syringe) 10 ml IVP PRN PRN PRN Reason: NEEDED PER PROVIDER ORDERS Last Admin: 09/25/21 02:57 Dose: 10 ml Documented by: Potassium Chloride [K-Dur] 40 meq PO BID 09/08/21 Diphenoxylate/Atropine [Lomotil] 2.5 mg PO PRN PRN 09/15/21 Objective - Vital Signs/Intake & Output Reviewed Vital Signs: Yes Vital Signs: Vital Signs x48h Temp Pulse Resp BP Pulse Ox 09/25/21 13:00 77 24 88/51 L 98 09/25/21 12:00 36.0 C L 82 35 H 98/64 100 09/25/21 11:00 77 22 107/47 L 97 09/25/21 10:00 77 25 H 104/52 L 99 09/25/21 09:00 83 25 H 100/52 L 99 09/25/21 08:00 36.1 C L 86 36 H 105/54 L 98 09/25/21 07:00 88 25 H 104/52 L 98 Intake & Output: Intake & Output 1109/23/21 09/24/21 09/25/21 23:59 23:59 23:59 23:59 Intake Total 3923.667 5028.916 4609.454 2100.75 Output Total 0780 6811 3046 1680 Balance 778.667 -6296.175 5153.454 420.75 - Objective General Appearance: positive: No acute distress, Alert Eyes Bilateral: positive: Normal inspection, Conjunctivae nml ENT: positive: ENT inspection nml, Other (NG tube in place.) Neck: positive: Nml inspection Respiratory: positive: No respiratory distress, Other (Tachypnic but no abnormal breath sounds.). negative: Wheezes, Rales Cardiovascular: positive: Regular rate & rhythm, No murmur. negative: Tachycardia Abdomen: positive: Non-tender Skin: positive: Warm, Dry Extremities: positive: No pedal edema Neurologic/Psychiatric: negative: Disoriented to person, Disoriented to place - Lab Results Fish Bones: 09/25/21 04:27 09/25/21 15:06 Other Labs: Lab Results x24hrs 09/25/21 09/25/21 09/25/21 Range/Units 06:24 04:27 04:27 WBC 5.9 (4.8-10.8) x10^3/uL RBC 3.00 L (4.70-6.10) 10^6/uL Hgb 10.0 L (14.0-18.0) g/dL Hct 29.8 L (42.0-52.0) % MCV 99.3 H (80.0-94.0) fL MCH 33.3 H (27.0-31.0) pg MCHC 33.6 (32.0-36.0) g/dL RDW 19.4 H (12.0-15.0) % Plt Count 61 L (130-450) 10^3/uL MPV 11.8 H (7.4-11.4) fL Neut # (Auto) Not Reportable Lymph # (Auto) Not Reportable [place] # (Auto) Not Reportable Eos # (Auto) Not Reportable Baso # (Auto) Not Reportable Absolute Nucleated RBC Not Reportable Total Counted 100 Band Neuts % (Manual) 9 (0 - 10) % Abnorm Lymph % (Manual) 0 % Nucleated RBC % Not Reportable Neutrophils # (Manual) 4.8 (1.5-6.6) 10^3/uL Lymphocytes # (Manual) 0.5 L (1.5-3.5) 10^3/uL Monocytes # (Manual) 0.5 (0.0-1.0) 10^3/uL Eosinophils # (Manual) 0.1 (0-0.7) 10^3/uL Basophils # (Manual) 0.0 (0-0.1) 10^3/uL Differential Comment MANUAL DIFFERENTIAL WBC Morphology NORMAL APPEARANCE (NORMAL) Platelet Estimate DECREASED (<130,000) (NORMAL) Platelet Morphology NORMAL APPEARANCE (NORMAL) RBC Morph Micro Appear 1+ ANISOCYTOSIS (NORMAL) VBG pH 7.427 H (7.31-7.41) Ionized Calcium 1.08 L (1.15-1.33) mmol/L Sodium 150 H (135-145) mmol/L Potassium 3.3 L (3.5-5.0) mmol/L Chloride 120 H* (101-111) mmol/L Carbon Dioxide 22 (21-32) mmol/L Anion Gap 8.0 (6-13) BUN 38 H (6-20) mg/dL Creatinine 0.9 (0.6-1.2) mg/dL Estimated GFR (MDRD) 82 L (>89) Glucose 132 H (70-100) mg/dL Lactic Acid (0.5-2.2) mmol/L Calcium 7.0 L (8.5-10.3) mg/dL Phosphorus 2.7 (2.5-4.6) mg/dL Magnesium 2.2 (1.7-2.8) mg/dL Total Bilirubin 0.3 (0.2-1.0) mg/dL AST 21 (10-42) IU/L ALT 16 (10-60) IU/L Alkaline Phosphatase 31 L (42-121) IU/L Total Protein 3.5 L (6.7-8.2) g/dL Albumin 1.2 L (3.2-5.5) g/dL Globulin 2.3 (2.1-4.2) g/dL Albumin/Globulin Ratio 0.5 L (1.0-2.2) Triglycerides 196 H ( - 149) mg/dL Ref Lab Test Result 11/03/1109/24/21 09/22/21 Range/Units 16:05 16:05 01:55 WBC (4.8-10.8) x10^3/uL RBC (4.70-6.10) 10^6/uL Hgb (14.0-18.0) g/dL Hct (42.0-52.0) % MCV (80.0-94.0) fL MCH (27.0-31.0) pg MCHC (32.0-36.0) g/dL RDW (12.0-15.0) % Plt Count (130-450) 10^3/uL MPV (7.4-11.4) fL Neut # (Auto) Lymph # (Auto) [place] # (Auto) Eos # (Auto) Baso # (Auto) Absolute Nucleated RBC Total Counted Band Neuts % (Manual) (0 - 10) % Abnorm Lymph % (Manual) % Nucleated RBC % Neutrophils # (Manual) (1.5-6.6) 10^3/uL Lymphocytes # (Manual) (1.5-3.5) 10^3/uL Monocytes # (Manual) (0.0-1.0) 10^3/uL Eosinophils # (Manual) (0-0.7) 10^3/uL Basophils # (Manual) (0-0.1) 10^3/uL Differential Comment WBC Morphology (NORMAL) Platelet Estimate (NORMAL) Platelet Morphology (NORMAL) RBC Morph Micro Appear (NORMAL) VBG pH (7.31-7.41) Ionized Calcium (1.15-1.33) mmol/L Sodium 144 (135-145) mmol/L Potassium 3.6 (3.5-5.0) mmol/L Chloride 119 H (101-111) mmol/L Carbon Dioxide 19 L (21-32) mmol/L Anion Gap 6.0 (6-13) BUN 44 H (6-20) mg/dL Creatinine 1.1 (0.6-1.2) mg/dL Estimated GFR (MDRD) 65 L (>89) Glucose 162 H (70-100) mg/dL Lactic Acid 1.8 (0.5-2.2) mmol/L Calcium 6.9 L (8.5-10.3) mg/dL Phosphorus (2.5-4.6) mg/dL Magnesium (1.7-2.8) mg/dL Total Bilirubin (0.2-1.0) mg/dL AST (10-42) IU/L ALT (10-60) IU/L Alkaline Phosphatase (42-121) IU/L Total Protein (6.7-8.2) g/dL Albumin (3.2-5.5) g/dL Globulin (2.1-4.2) g/dL Albumin/Globulin Ratio (1.0-2.2) Triglycerides ( - 149) mg/dL Ref Lab Test Result REPORT ABX Reporting Has patient been on IV antibiotics over the past 48 hours?: Yes Assessment/Plan - Problem List (1) Adynamic ileus Impression: This appears to be improved. He had a bowel movement today longer feels nauseous. Also has no abdominal pain. We will clamp the NG tube and trial him on clear liquid diet. Appreciate general surgery input (2) Neutropenic colitis Impression: The concern is for neutropenic colitis on admission this appears to be improved. He is no longer neutropenic and clinically has no abdominal pain and no fever. He will be maintained on IV antibiotics with zozyn and will look to switch to oral antibiotics if he is tolerating p.o. consistently. Continue gentle IV hydration. (3) Acidosis, hyperchloremic Impression: This is secondary to hydration with IV fluids. We have discontinued his normal saline and he is on D5 water given the hyponatremia. We will continue to monitor. (4) Chemotherapy induced neutropenia Impression: This is now resolved. He was initially neutropenic on admission. (5) Hypernatremia Impression: Secondary to decreased free water intake as he has been n.p.o. and received normal saline as resuscitation. Sodium is 150 this morning so we restarted him on D5 water. We will recheck this afternoon. I suspect that this will improve now he is on D5 water and we are starting him on a clear liquid diet. (6) SVT (supraventricular tachycardia) Impression: He remains rate controlled on diltiazem. We have discontinued the digoxin. If he is tolerating clear liquid diet we will start him on oral AV telma blocking agents. (7) Adenocarcinoma of rectum, stage 3 Impression: He has a known history of rectal adenocarcinoma stage III. He is receiving chemotherapy with FOLFOX. He will need outpatient follow-up with oncology once discharged.
[2021-09-25 15:22] LABS: CALCIUM 6.8 mg/dL (8.5-10.3); CREATININE 0.8 mg/dL (0.6-1.2); POTASSIUM 3.3 mmol/L (3.5-5.0)
[2021-09-25] MEDS: FAT EMULSION IV SCH (19:09)
[2021-09-25] MEDS: OLIVE IV SCH (19:09)
[2021-09-25] MEDS: SOY IV SCH (19:09)
[2021-09-25] MEDS: PHOSPHO IV SCH (19:09)
[2021-09-25] MEDS: TPN (CLINIMIX E 5/15) 2,000 ML with MULTIVITAMIN 10 ML, TRACE ELEMENTS 1 ML IV SCH ×3 (19:10)
[2021-09-25 19:19] LABS: CALCIUM, IONIZED 1.08 mmol/L (1.15-1.33); VBG PH 7.451 (7.31-7.41)
[2021-09-25] MEDS: MIN OIL/DIMETHICON/COCONUT OIL 92 GM TUBE TOP PRN (19:29)
[2021-09-25] MEDS ORDERED: DEXTROSE 5% 100 ML IV ONE (21:07)
[2021-09-26] MEDS: diltiaZEM INJ 125 MG in DEXTROSE 5% 100 ML IV SCH (03:46)
[2021-09-26] MEDS: PIPERACILLIN/TAZOBACTAM 3.375 GM in SODIUM CHLORIDE 0.9% MINIBAG 100 ML IV SCH ×3 (03:54→20:26)
[2021-09-26] MEDS: SODIUM CHLORIDE FLUSH 0.9% 10 ML SYRINGE IVP SCH ×4 (04:18→20:27)
[2021-09-26 04:58] LABS: BASOPHILS % (AUTO) 1.3 %; EOSINOPHILS % (AUTO) 1.7 %; HCT - HEMATOCRIT 28.9 % (42.0-52.0); HGB - HEMOGLOBIN 9.6 g/dL (14.0-18.0); LYMPHOCYTES % (AUTO) 13.1 %; MEAN CORPUSCULAR HEMOGLOBIN 33.3 pg (27.0-31.0); MEAN CORPUSCULAR HGB CONC 33.2 g/dL (32.0-36.0); MEAN CORPUSCULAR VOLUME 100.3 fL (80.0-94.0); MEAN PLATELET VOLUME 11.8 fL (7.4-11.4); MONOCYTES % (AUTO) 8.4 %; NEUTROPHILS % (AUTO) 69.3 %; PLT - PLATELET COUNT 72 10^3/uL (130-450); RED BLOOD COUNT 2.88 10^6/uL (4.70-6.10); RED CELL DISTRIBUTION WIDTH 19.1 % (12.0-15.0); WHITE BLOOD COUNT 4.7 x10^3/uL (4.8-10.8)
[2021-09-26 05:07] LABS: CALCIUM 6.9 mg/dL (8.5-10.3); CREATININE 0.8 mg/dL (0.6-1.2); POTASSIUM 3.2 mmol/L (3.5-5.0)
[2021-09-26 05:09] LABS: VBG PH 7.424 (7.31-7.41)
[2021-09-26 05:10] LABS: ABNORMAL LYMPHS % (MANUAL) 0 %; CALCIUM, IONIZED 1.09 mmol/L (1.15-1.33)
[2021-09-26 05:19] LABS: BAND NEUTROPHILS % (MANUAL) 9 %; EOSINOPHILS # (MANUAL) 0.1 10^3/uL (0-0.7); LYMPHOCYTES # (MANUAL) 0.5 10^3/uL (1.5-3.5); LYMPHOCYTES % (MANUAL) 11 %; MONOCYTES # (MANUAL) 0.1 10^3/uL (0.0-1.0); MYELOCYTES % (MANUAL) 1 %; NEUTROPHILS # (MANUAL) 3.9 10^3/uL (1.5-6.6)
[2021-09-26 05:20] LABS: DIFFERENTIAL COMMENT MANUAL DIFFERENTIAL; PLATELET ESTIMATE, MANUAL DECREASED (<130,000) (NORMAL); PLATELET MORPHOLOGY NORMAL APPEARANCE (NORMAL); WBC MORPHOLOGY (MULTIPLE) NORMAL APPEARANCE (NORMAL)
[2021-09-26] MEDS: POTASSIUM CHLOR 10 MEQ/100 ML 10 MEQ/100 ML BAG IV SCH ×2 (07:02→09:00)
[2021-09-26] MEDS: CALCIUM CARBONATE CHEW 500 MG TABLET PO SCH ×2 (08:20→12:03)
[2021-09-26] MEDS ORDERED: POTASSIUM PHOSPHATE 15 MMOL in SODIUM CHLORIDE 0.9% 250 ML IV ONE (08:30)
[2021-09-26] MEDS: PANTOPRAZOLE 40 MG VIAL IVP SCH (08:37)
[2021-09-26] MEDS: ENOXAPARIN 40 MG/0.4 ML SYRINGE SUBQ SCH (08:44)
[2021-09-26] MEDS ORDERED: diltiaZEM CD 120 MG CAPSULE PO SCH (09:00)
--- NOTE | 2021-09-26 11:27 | PROVIDER PROGRESS NOTE ---
Subjective - Prog Note Date Prog Note Date: 09/26/21 - Subjective Subjective: He feels improved. Still feels occasionally short of breath. Denies any abdominal pain. Reports no nausea or vomiting. He is having bowel movements and has been tolerating a clear liquid diet. Current Medications - Current Medications Current Medications: Active Medications Acetaminophen (Acetaminophen 325 Mg Tablet) 650 mg PO Q4HR PRN PRN Reason: Pain 1 to 4 Al Hydroxide/Mg Hydroxide (Mag Hydrox/Al Hydrox/Simeth 30 Ml Udc) 30 ml PO Q4HR PRN PRN Reason: INDIGESTION Last Admin: 09/22/21 21:00 Dose: 30 ml Documented by: Albuterol (Albuterol Neb 2.5 Mg/3 Ml) 2.5 mg INH Q4HR PRN PRN Reason: Wheezing Calcium Carbonate/Glycine (Calcium Carbonate Chew 500 Mg Tablet) 1,250 mg PO Q4H [facility]; Protocol Stop: 09/26/21 12:01 Last Admin: 09/26/21 08:20 Dose: 1,250 mg Documented by: Diltiazem HCl (Diltiazem Cd 120 Mg Capsule) 120 mg PO DAILY [facility] Last Admin: 09/26/21 08:20 Dose: 120 mg Documented by: Enoxaparin Sodium (Enoxaparin 40 Mg/0.4 Ml Syringe) 40 mg SUBQ DAILY [facility] Last Admin: 09/26/21 08:44 Dose: Not Given Documented by: Multivitamins 10 ml/ TRACE ELEMENTS 1 ml/ Amino Ac/Electrol/Dextrose/Calcium 2,011 mls @ 83 mls/hr IV Q24H [facility]; Protocol Last Admin: 09/25/21 19:10 Dose: 83 mls/hr Documented by: Piperacillin Sod/Tazobactam (Sod 3.375 gm/ Sodium Chloride) 100 mls @ 25 mls/hr IV Q8H [facility] Last Infusion: 09/26/21 08:00 Dose: Infused Documented by: FAT EMULSION/OLIVE/SOY/PHOSPHO (Clinolipid 20% Iv Fat Emulsion) 50 gm in 250 mls @ 21 mls/hr IV 1900 [facility] Last Infusion: 09/26/21 07:10 Dose: Infused Documented by: Potassium Phosphate 15 mmol/ (Sodium Chloride) 255 mls @ 63 mls/hr IV ONCE ONE; Protocol Stop: 09/26/21 12:32 Last Admin: 09/26/21 11:37 Dose: 64 mls/hr Documented by: Mineral Oil (Min Oil/Dimethicon/Coconut Oil 92 Gm Tube) 1 applic TOP PRN PRN PRN Reason: Skin Care Last Admin: 09/25/21 19:29 Dose: 1 applic Documented by: Morphine Sulfate (Morphine 2 Mg/Ml Carpuject) 2 mg IVP Q2HR PRN PRN Reason: Pain 8 to 10 Last Admin: 09/25/21 02:56 Dose: 2 mg Documented by: Ondansetron HCl (Ondansetron Odt 4 Mg Tablet) 4 mg TL Q6HR PRN PRN Reason: Nausea / Vomiting Ondansetron HCl (Ondansetron 4 Mg/2 Ml Vial) 4 mg IVP Q4HR PRN PRN Reason: Nausea / Vomiting Last Admin: 09/24/21 00:06 Dose: 4 mg Documented by: Oxycodone HCl (Oxycodone 5 Mg Tablet) 5 mg PO Q4HR PRN PRN Reason: Pain 5 to 7 Last Admin: 09/19/21 16:40 Dose: 5 mg Documented by: Pantoprazole Sodium (Pantoprazole 40 Mg Tablet) 40 mg PO QDAC [facility] Sodium Chloride (Sodium Chloride Flush 0.9% 10 Ml Syringe) 10 ml IVP 0100,0900,1700 [facility] Last Admin: 09/26/21 08:26 Dose: 30 ml Documented by: Sodium Chloride (Sodium Chloride Flush 0.9% 10 Ml Syringe) 10 ml IVP PRN PRN PRN Reason: NEEDED PER PROVIDER ORDERS Last Admin: 09/25/21 02:57 Dose: 10 ml Documented by: Potassium Chloride [K-Dur] 40 meq PO BID 09/08/21 Diphenoxylate/Atropine [Lomotil] 2.5 mg PO PRN PRN 09/15/21 Objective - Vital Signs/Intake & Output Reviewed Vital Signs: Yes Vital Signs: Vital Signs x48h Temp Pulse Resp BP Pulse Ox 09/26/21 11:00 98 31 H 110/63 98 09/26/21 09:00 108 H 32 H 101/44 L 09/26/21 07:00 36.8 C 84 31 H 109/58 L 100 09/26/21 05:00 36.9 C 88 25 H 105/54 L 99 Intake & Output: Intake & Output 09/23/21 09/24/21 09/25/21 09/26/21 23:59 23:59 23:59 23:59 Intake Total 5028.916 4609.454 5436.408 1932.125 Output Total 6853 3045 2540 1120 Balance -8997.396 3432.454 2896.408 812.125 - Objective General Appearance: positive: No acute distress, Alert Eyes Bilateral: positive: Normal inspection, Conjunctivae nml ENT: positive: ENT inspection nml, Other (NG tube in place.) Neck: positive: Nml inspection Respiratory: positive: No respiratory distress, Other (Tachypnic.). negative: Wheezes, Rales Cardiovascular: positive: Regular rate & rhythm, No murmur. negative: Irregularly irregular, Tachycardia Abdomen: positive: Non-tender, Nml bowel sounds, No distention. negative: Tenderness Skin: positive: Warm, Dry Extremities: positive: No pedal edema Neurologic/Psychiatric: negative: Disoriented to person, Disoriented to place - Lab Results Fish Bones: 09/26/21 04:11 09/26/21 04:11 Other Labs: Lab Results x24hrs 09/26/21 09/26/21 09/26/21 Range/Units 04:11 04:11 04:11 WBC 4.7 L (4.8-10.8) x10^3/uL RBC 2.88 L (4.70-6.10) 10^6/uL Hgb 9.6 L (14.0-18.0) g/dL Hct 28.9 L (42.0-52.0) % MCV 100.3 H (80.0-94.0) fL MCH 33.3 H (27.0-31.0) pg MCHC 33.2 (32.0-36.0) g/dL RDW 19.1 H (12.0-15.0) % Plt Count 72 L (130-450) 10^3/uL MPV 11.8 H (7.4-11.4) fL Neut # (Auto) Not Reportable Lymph # (Auto) Not Reportable [place] # (Auto) Not Reportable Eos # (Auto) Not Reportable Baso # (Auto) Not Reportable Absolute Nucleated RBC Not Reportable Total Counted 100 Band Neuts % (Manual) 9 (0 - 10) % Abnorm Lymph % (Manual) 0 % Myelocytes % 1 H ( - 0) % Nucleated RBC % Not Reportable Neutrophils # (Manual) 3.9 (1.5-6.6) 10^3/uL Lymphocytes # (Manual) 0.5 L (1.5-3.5) 10^3/uL Monocytes # (Manual) 0.1 (0.0-1.0) 10^3/uL Eosinophils # (Manual) 0.1 (0-0.7) 10^3/uL Basophils # (Manual) 0.0 (0-0.1) 10^3/uL Differential Comment MANUAL DIFFERENTIAL WBC Morphology NORMAL APPEARANCE (NORMAL) Platelet Estimate DECREASED (<130,000) (NORMAL) Platelet Morphology NORMAL APPEARANCE (NORMAL) RBC Morph Micro Appear 1+ POLYCHROMASIA (NORMAL) VBG pH 7.424 H (7.31-7.41) Ionized Calcium 1.09 L (1.15-1.33) mmol/L Sodium (135-145) mmol/L Potassium (3.5-5.0) mmol/L Chloride (101-111) mmol/L Carbon Dioxide (21-32) mmol/L Anion Gap (6-13) BUN (6-20) mg/dL Creatinine (0.6-1.2) mg/dL Estimated GFR (MDRD) (>89) Glucose (70-100) mg/dL Calcium (8.5-10.3) mg/dL Phosphorus 2.2 L (2.5-4.6) mg/dL Magnesium (1.7-2.8) mg/dL Ref Lab Test Result 09/26/21 09/25/21 09/25/21 Range/Units 04:11 19:00 15:06 WBC (4.8-10.8) x10^3/uL RBC (4.70-6.10) 10^6/uL Hgb (14.0-18.0) g/dL Hct (42.0-52.0) % MCV (80.0-94.0) fL MCH (27.0-31.0) pg MCHC (32.0-36.0) g/dL RDW (12.0-15.0) % Plt Count (130-450) 10^3/uL MPV (7.4-11.4) fL Neut # (Auto) Lymph # (Auto) [place] # (Auto) Eos # (Auto) Baso # (Auto) Absolute Nucleated RBC Total Counted Band Neuts % (Manual) (0 - 10) % Abnorm Lymph % (Manual) % Myelocytes % ( - 0) % Nucleated RBC % Neutrophils # (Manual) (1.5-6.6) 10^3/uL Lymphocytes # (Manual) (1.5-3.5) 10^3/uL Monocytes # (Manual) (0.0-1.0) 10^3/uL Eosinophils # (Manual) (0-0.7) 10^3/uL Basophils # (Manual) (0-0.1) 10^3/uL Differential Comment WBC Morphology (NORMAL) Platelet Estimate (NORMAL) Platelet Morphology (NORMAL) RBC Morph Micro Appear (NORMAL) VBG pH 7.451 H (7.31-7.41) Ionized Calcium 1.08 L (1.15-1.33) mmol/L Sodium 142 146 H (135-145) mmol/L Potassium 3.2 L 3.3 L (3.5-5.0) mmol/L Chloride 115 H 119 H (101-111) mmol/L Carbon Dioxide 21 22 (21-32) mmol/L Anion Gap 6.0 5.0 L (6-13) BUN 27 H 35 H (6-20) mg/dL Creatinine 0.8 0.8 (0.6-1.2) mg/dL Estimated GFR (MDRD) 94 94 (>89) Glucose 133 H 164 H (70-100) mg/dL Calcium 6.9 L 6.8 L (8.5-10.3) mg/dL Phosphorus (2.5-4.6) mg/dL Magnesium 2.0 (1.7-2.8) mg/dL Ref Lab Test Result 09/22/21 Range/Units 01:55 WBC (4.8-10.8) x10^3/uL RBC (4.70-6.10) 10^6/uL Hgb (14.0-18.0) g/dL Hct (42.0-52.0) % MCV (80.0-94.0) fL MCH (27.0-31.0) pg MCHC (32.0-36.0) g/dL RDW (12.0-15.0) % Plt Count (130-450) 10^3/uL MPV (7.4-11.4) fL Neut # (Auto) Lymph # (Auto) [place] # (Auto) Eos # (Auto) Baso # (Auto) Absolute Nucleated RBC Total Counted Band Neuts % (Manual) (0 - 10) % Abnorm Lymph % (Manual) % Myelocytes % ( - 0) % Nucleated RBC % Neutrophils # (Manual) (1.5-6.6) 10^3/uL Lymphocytes # (Manual) (1.5-3.5) 10^3/uL Monocytes # (Manual) (0.0-1.0) 10^3/uL Eosinophils # (Manual) (0-0.7) 10^3/uL Basophils # (Manual) (0-0.1) 10^3/uL Differential Comment WBC Morphology (NORMAL) Platelet Estimate (NORMAL) Platelet Morphology (NORMAL) RBC Morph Micro Appear (NORMAL) VBG pH (7.31-7.41) Ionized Calcium (1.15-1.33) mmol/L Sodium (135-145) mmol/L Potassium (3.5-5.0) mmol/L Chloride (101-111) mmol/L Carbon Dioxide (21-32) mmol/L Anion Gap (6-13) BUN (6-20) mg/dL Creatinine (0.6-1.2) mg/dL Estimated GFR (MDRD) (>89) Glucose (70-100) mg/dL Calcium (8.5-10.3) mg/dL Phosphorus (2.5-4.6) mg/dL Magnesium (1.7-2.8) mg/dL Ref Lab Test Result REPORT ABX Reporting Has patient been on IV antibiotics over the past 48 hours?: Yes Assessment/Plan - Problem List (1) Adynamic ileus Impression: This appears to have resolved. He is tolerating a clear liquid diet and is having bowel movements. We we will discontinue the NG tube today. If he tolerates a clear liquid diet for lunch we will advance it to a soft diet for dinner. We will discontinue TPN. (2) Neutropenic colitis Impression: The initial concern was for neutropenic colitis given he was neutropenic and had abdominal pain. His ileus appears to have resolved now and he is tolerating a diet. Stool cultures have been negative to date. He remains on Zosyn IV and we will look to switch to p.o. antibiotics tomorrow if he continues to improve. (3) Acidosis, hyperchloremic Impression: This is secondary to the IV fluids he received as he was resuscitated with normal saline. This is improving. (4) Chemotherapy induced neutropenia Impression: His neutropenia has resolved since admission but his white count is beginning to decrease again and we will keep a close eye on his absolute neutrophil count. (5) Hypernatremia Impression: This has now resolved after doing him on D5 water as well as a clear liquid diet. We will discontinue the D5 water and he is taking p.o. We will continue to monitor with daily labs. (6) SVT (supraventricular tachycardia) Impression: Resolved. Now he is taking p.o. consistently, we will start him on oral Cardi zem and discontinued the diltiazem infusion. (7) Adenocarcinoma of rectum, stage 3 Impression: He has a known history of rectal adenocarcinoma stage III. He is receiving chemotherapy with FOLFOX. He will need outpatient follow-up with oncology once discharged. (8) Acute kidney injury Impression: This is now resolved and was prerenal in injury secondary to volume depletion.
[2021-09-26] MEDS: MIN OIL/DIMETHICON/COCONUT OIL 92 GM TUBE TOP PRN (18:08)
[2021-09-27] MEDS: PIPERACILLIN/TAZOBACTAM 3.375 GM in SODIUM CHLORIDE 0.9% MINIBAG 100 ML IV SCH ×2 (04:09→11:48)
[2021-09-27] MEDS: SODIUM CHLORIDE FLUSH 0.9% 10 ML SYRINGE IVP PRN (04:12)
[2021-09-27] MEDS: SODIUM CHLORIDE FLUSH 0.9% 10 ML SYRINGE IVP SCH ×4 (04:12→23:40)
[2021-09-27 06:10] LABS: BASOPHILS % (AUTO) 1.4 %; EOSINOPHILS % (AUTO) 0.8 %; HCT - HEMATOCRIT 31.4 % (42.0-52.0); LYMPHOCYTES % (AUTO) 16.2 %; MEAN CORPUSCULAR HEMOGLOBIN 33.1 pg (27.0-31.0); MEAN CORPUSCULAR HGB CONC 31.8 g/dL (32.0-36.0); MEAN PLATELET VOLUME 11.9 fL (7.4-11.4); NEUTROPHILS % (AUTO) 73.5 %; PLT - PLATELET COUNT 110 10^3/uL (130-450); RED BLOOD COUNT 3.02 10^6/uL (4.70-6.10); RED CELL DISTRIBUTION WIDTH 19.4 % (12.0-15.0); WHITE BLOOD COUNT 4.9 x10^3/uL (4.8-10.8)
[2021-09-27 06:17] LABS: ABNORMAL LYMPHS % (MANUAL) 0 %
[2021-09-27] MEDS: PANTOPRAZOLE 40 MG TABLET PO SCH (06:18)
[2021-09-27 06:25] LABS: ALBUMIN 1.2 g/dL (3.2-5.5); ALBUMIN/GLOBULIN RATIO 0.4 (1.0-2.2); BILIRUBIN,TOTAL 0.9 mg/dL (0.2-1.0); CALCIUM 7.1 mg/dL (8.5-10.3); CREATININE 1.1 mg/dL (0.6-1.2); MAGNESIUM 2.1 mg/dL (1.7-2.8); POTASSIUM 3.1 mmol/L (3.5-5.0)
[2021-09-27 06:31] LABS: BAND NEUTROPHILS % (MANUAL) 10 %; BASOPHILS % (MANUAL) 1 %; LYMPHOCYTES # (MANUAL) 0.6 10^3/uL (1.5-3.5); LYMPHOCYTES % (MANUAL) 12 %; MONOCYTES # (MANUAL) 0.1 10^3/uL (0.0-1.0); MYELOCYTES % (MANUAL) 1 %; NEUTROPHILS # (MANUAL) 4.1 10^3/uL (1.5-6.6)
[2021-09-27 06:33] LABS: DIFFERENTIAL COMMENT MANUAL DIFFERENTIAL; PLATELET ESTIMATE, MANUAL DECREASED (<130,000) (NORMAL); PLATELET MORPHOLOGY NORMAL APPEARANCE (NORMAL); WBC MORPHOLOGY (MULTIPLE) NORMAL APPEARANCE (NORMAL)
[2021-09-27] MEDS ORDERED: POTASSIUM CHLORIDE 20 MEQ TABLET PO ONE (07:08)
--- NOTE | 2021-09-27 07:34 | PROVIDER PROGRESS NOTE ---
Subjective - Prog Note Date Prog Note Date: 09/27/21 - Subjective Subjective: He feels his breathing is little improved today but is now complaining of abdominal pain that began late this morning. He is also having diarrhea now with multiple liquid bowel movements. Current Medications - Current Medications Current Medications: Active Medications Acetaminophen (Acetaminophen 325 Mg Tablet) 650 mg PO Q4HR PRN PRN Reason: Pain 1 to 4 Al Hydroxide/Mg Hydroxide (Mag Hydrox/Al Hydrox/Simeth 30 Ml Udc) 30 ml PO Q4HR PRN PRN Reason: INDIGESTION Last Admin: 09/22/21 21:00 Dose: 30 ml Documented by: Albuterol (Albuterol Neb 2.5 Mg/3 Ml) 2.5 mg INH Q4HR PRN PRN Reason: Wheezing Diltiazem HCl (Diltiazem Cd 120 Mg Capsule) 120 mg PO DAILY [facility] Last Admin: 09/26/21 08:20 Dose: 120 mg Documented by: Enoxaparin Sodium (Enoxaparin 40 Mg/0.4 Ml Syringe) 40 mg SUBQ DAILY [facility] Last Admin: 09/26/21 08:44 Dose: Not Given Documented by: Heparin Sodium (Beef Lung) (Heparin Flush 50 Units/5 Ml Syringe) 30 - 50 unit IVP PRN PRN PRN Reason: Port Protocol (<24 hours) Last Admin: 09/27/21 04:13 Dose: 50 unit Documented by: Piperacillin Sod/Tazobactam (Sod 3.375 gm/ Sodium Chloride) 100 mls @ 25 mls/hr IV Q8H [facility] Last Admin: 09/27/21 04:09 Dose: 25 mls/hr Documented by: Mineral Oil (Min Oil/Dimethicon/Coconut Oil 92 Gm Tube) 1 applic TOP PRN PRN PRN Reason: Skin Care Last Admin: 09/26/21 18:08 Dose: 1 applic Documented by: Morphine Sulfate (Morphine 2 Mg/Ml Carpuject) 2 mg IVP Q2HR PRN PRN Reason: Pain 8 to 10 Last Admin: 09/25/21 02:56 Dose: 2 mg Documented by: Ondansetron HCl (Ondansetron Odt 4 Mg Tablet) 4 mg TL Q6HR PRN PRN Reason: Nausea / Vomiting Ondansetron HCl (Ondansetron 4 Mg/2 Ml Vial) 4 mg IVP Q4HR PRN PRN Reason: Nausea / Vomiting Last Admin: 09/24/21 00:06 Dose: 4 mg Documented by: Oxycodone HCl (Oxycodone 5 Mg Tablet) 5 mg PO Q4HR PRN PRN Reason: Pain 5 to 7 Last Admin: 09/19/21 16:40 Dose: 5 mg Documented by: Pantoprazole Sodium (Pantoprazole 40 Mg Tablet) 40 mg PO QDAC [facility] Last Admin: 09/27/21 06:18 Dose: 40 mg Documented by: Sodium Chloride (Sodium Chloride Flush 0.9% 10 Ml Syringe) 10 ml IVP 0100,0 900,1700 [facility] Last Admin: 09/27/21 04:12 Dose: 10 ml Documented by: Sodium Chloride (Sodium Chloride Flush 0.9% 10 Ml Syringe) 10 ml IVP PRN PRN PRN Reason: NEEDED PER PROVIDER ORDERS Last Admin: 09/27/21 04:12 Dose: 20 ml Documented by: Potassium Chloride [K-Dur] 40 meq PO BID 09/08/21 Diphenoxylate/Atropine [Lomotil] 2.5 mg PO PRN PRN 09/15/21 Objective - Vital Signs/Intake & Output Reviewed Vital Signs: Yes Vital Signs: Vital Signs x48h Temp Pulse Resp BP Pulse Ox 09/27/21 04:26 36.5 C 89 24 90/53 L 100 Intake & Output: Intake & Output 09/24/21 09/25/21 09/26/21 09/27/21 23:59 23:59 23:59 22:59 Intake Total 4609.454 5436.408 4439.125 250 Output Total 3045 2540 1480 125 Balance 7958.838 5854.408 2959.125 125 - Objective General Appearance: positive: Alert, Mild distress Eyes Bilateral: positive: Normal inspection, Conjunctivae nml ENT: positive: ENT inspection nml Neck: positive: Nml inspection Respiratory: positive: No respiratory distress, Other (Still slightly tachypneic but improved). negative: Wheezes, Rales Cardiovascular: positive: Tachycardia. negative: Irregularly irregular, Bradycardia, Systolic murmur Abdomen: positive: No distention, Tenderness (Diffuse tenderness.), Abnml bowel sounds (Hypoactive.). negative: Non-tender, Guarding, Rebound Skin: positive: Warm, Dry Extremities: positive: Pedal edema (Trace edema in bilateral lower extremities.) Neurologic/Psychiatric: negative: Disoriented to person, Disoriented to place - Lab Results Fish Bones: 09/27/21 04:40 09/27/21 04:40 Other Labs: Lab Results x24hrs 09/27/21 09/27/21 09/26/21 Range/Units 04:40 04:40 12:30 WBC 4.9 (4.8-10.8) x10^3/uL RBC 3.02 L (4.70-6.10) 10^6/uL Hgb 10.0 L (14.0-18.0) g/dL Hct 31.4 L (42.0-52.0) % MCV 104.0 H (80.0-94.0) fL MCH 33.1 H (27.0-31.0) pg MCHC 31.8 L (32.0-36.0) g/dL RDW 19.4 H (12.0-15.0) % Plt Count 110 L (130-450) 10^3/uL MPV 11.9 H (7.4-11.4) fL Neut # (Auto) Not Reportable Lymph # (Auto) Not Reportable Coos # (Auto) Not Reportable Eos # (Auto) Not Reportable Baso # (Auto) Not Reportable Absolute Nucleated RBC Not Reportable Total Counted 100 Band Neuts % (Manual) 10 (0 - 10) % Abnorm Lymph % (Manual) 0 % Myelocytes % 1 H ( - 0) % Nucleated RBC % Not Reportable Neutrophils # (Manual) 4.1 (1.5-6.6) 10^3/uL Lymphocytes # (Manual) 0.6 L (1.5-3.5) 10^3/uL Monocytes # (Manual) 0.1 (0.0-1.0) 10^3/uL Eosinophils # (Manual) 0.0 (0-0.7) 10^3/uL Basophils # (Manual) 0.0 (0-0.1) 10^3/uL Differential Comment MANUAL DIFFERENTIAL WBC Morphology NORMAL APPEARANCE (NORMAL) Platelet Estimate DECREASED (<130,000) (NORMAL) Platelet Morphology NORMAL APPEARANCE (NORMAL) RBC Morph Micro Appear 1+ POLYCHROMASIA (NORMAL) Sodium 141 (135-145) mmol/L Potassium 3.1 L (3.5-5.0) mmol/L Chloride 115 H (101-111) mmol/L Carbon Dioxide 18 L (21-32) mmol/L Anion Gap 8.0 (6-13) BUN 27 H (6-20) mg/dL Creatinine 1.1 (0.6-1.2) mg/dL Estimated GFR (MDRD) 65 L (>89) Glucose 61 L (70-100) mg/dL Calcium 7.1 L (8.5-10.3) mg/dL Phosphorus 4.0 (2.5-4.6) mg/dL Magnesium 2.1 (1.7-2.8) mg/dL Total Bilirubin 0.9 (0.2-1.0) mg/dL AST 22 (10-42) IU/L ALT 17 (10-60) IU/L Alkaline Phosphatase 53 (42-121) IU/L Total Protein 4.0 L (6.7-8.2) g/dL Albumin 1.2 L (3.2-5.5) g/dL Globulin 2.8 (2.1-4.2) g/dL Albumin/Globulin Ratio 0.4 L (1.0-2.2) Prealbumin 9 L (18-45) mg/dL Triglycerides 224 H ( - 149) mg/dL TSH 6.26 H (0.34-5.60) uIU/mL ABX Reporting Has patient been on IV antibiotics over the past 48 hours?: Yes Assessment/Plan - Problem List (1) Neutropenic colitis Impression: This was felt to be improving but now he has had diarrhea again. He is also hypotensive. He has been afebrile and he is no longer neutropenic but we will keep him on IV antibiotics. The initial plan was to change him to oral antibiotics today but we will hold off on this given hypotension and diarrhea. His stool cultures have been negative including C. difficile but we will recheck C. difficile again. We will also order a CT of the abdomen pelvis with p.o. and IV contrast. N.p.o. for time being. (2) Hypotension Impression: He is hypotensive today with systolics in the 90s. Given his diarrhea has returned, this may be related to hypovolemia. We will continue him on D5 half- normal and administer a bolus of lactated Ringer's. We will also repeat labs including BMP and a lactic acid. We will continue IV antibiotics with Zosyn but will increase the dose to 4.5 g every 6 to cover for Pseudomonas. So far it has been no obvious source of infection. (3) Adynamic ileus Impression: This appears to have been resolved. He is now having diarrhea again. Given his abdominal pain, we will repeat imaging with a CT of the abdomen and pelvis. (4) Hypoglycemia Impression: He is hypoglycemic today likely due to decreased oral intake and the fact that TPN has been discontinued. He received an amp of dextrose but was still hypoglycemic for lunch. We will start him on D5 half-normal given he will be made n.p.o. If his CT suggests ileus/obstruction or significant pathology then he may require TPN again. (5) Acidosis, hyperchloremic Impression: His bicarbonate is decreased today and his chloride is stable. He is now on D5 half-normal given the hypoglycemia. Given his hypotensive we will also administer a bolus of LR and hold off on normal saline. We will continue to monitor with daily labs. (6) Chemotherapy induced neutropenia Impression: He was initially neutropenic upon his arrival but this has since resolved. Nonetheless, he remains on IV antibiotics for suspected neutropenic colitis. (7) Hypernatremia Impression: This has resolved. This was secondary to decreased oral intake and resuscitation with normal saline. (8) SVT (supraventricular tachycardia) Impression: This was initially treated with a diltiazem drip and IV digoxin. He was sent switched to oral Cardizem but due to hypotension, we have held this today. We will continue to monitor on telemetry. (9) Adenocarcinoma of rectum, stage 3 Impression: He was diagnosed earlier this year and is currently seeking treatment with FOLFOX. He will continue outpatient follow-up with his oncologist once discharged. (10) Acute kidney injury Impression: This was likely prerenal in injury and has since resolved with IV fluids.
[2021-09-27] MEDS ORDERED: DEXTROSE 50% ABBOJECT 25 GM/50 ML SYRINGE IVP ONE (08:15)
[2021-09-27] MEDS: diltiaZEM CD 120 MG CAPSULE PO SCH (08:24)
[2021-09-27] MEDS ORDERED: DEXTROSE 50% ABBOJECT 25 GM/50 ML SYRINGE ONE (08:25)
[2021-09-27] MEDS: ENOXAPARIN 40 MG/0.4 ML SYRINGE SUBQ SCH (08:25)
[2021-09-27] MEDS: D5.45NS W/20 MEQ KCL 1,000 ML IV SCH (12:47)
[2021-09-27] MEDS ORDERED: LACTATED RINGERS 500 ML IV ONE (13:54)
[2021-09-27] MEDS ORDERED: metroNIDAZOLE 250 MG TABLET PO SCH (14:00)
[2021-09-27] MEDS ORDERED: IOVERSOL 320 50 ML VIAL ONE (14:22)
[2021-09-27] MEDS ORDERED: IOVERSOL 320 100 ML VIAL IVP ONE ×2 (14:22→16:28)
[2021-09-27 14:30] LABS: BASOPHILS % (AUTO) 1.5 %; EOSINOPHILS % (AUTO) 0.6 %; HCT - HEMATOCRIT 31.8 % (42.0-52.0); HGB - HEMOGLOBIN 10.3 g/dL (14.0-18.0); LYMPHOCYTES % (AUTO) 13.8 %; MEAN CORPUSCULAR HEMOGLOBIN 33.2 pg (27.0-31.0); MEAN CORPUSCULAR HGB CONC 32.4 g/dL (32.0-36.0); MEAN CORPUSCULAR VOLUME 102.6 fL (80.0-94.0); MEAN PLATELET VOLUME 11.3 fL (7.4-11.4); MONOCYTES % (AUTO) 5.2 %; NEUTROPHILS % (AUTO) 77.2 %; PLT - PLATELET COUNT 137 10^3/uL (130-450); RED CELL DISTRIBUTION WIDTH 19.2 % (12.0-15.0); WHITE BLOOD COUNT 4.8 x10^3/uL (4.8-10.8)
[2021-09-27 14:35] LABS: ABNORMAL LYMPHS % (MANUAL) 0 %
[2021-09-27 14:48] LABS: ALBUMIN 1.2 g/dL (3.2-5.5); BILIRUBIN,DIRECT 0.4 mg/dL (0.1-0.5); CALCIUM 7.3 mg/dL (8.5-10.3); CREATININE 1.3 mg/dL (0.6-1.2); TOTAL PROTEIN 4.2 g/dL (6.7-8.2)
[2021-09-27 15:10] LABS: BAND NEUTROPHILS % (MANUAL) 15 %; LYMPHOCYTES # (MANUAL) 0.6 10^3/uL (1.5-3.5); LYMPHOCYTES % (MANUAL) 12 %; MONOCYTES # (MANUAL) 0.4 10^3/uL (0.0-1.0); NEUTROPHILS # (MANUAL) 3.8 10^3/uL (1.5-6.6); NUCLEATED RBC (MANUAL) 2 %
[2021-09-27 15:15] LABS: PLATELET ESTIMATE, MANUAL NORMAL (130-450,000) (NORMAL); PLATELET MORPHOLOGY NORMAL APPEARANCE (NORMAL)
[2021-09-27 15:17] LABS: DIFFERENTIAL COMMENT MANUAL DIFFERENTIAL
[2021-09-27] MEDS ORDERED: IOVERSOL 320 50 ML VIAL PO ONE (16:28)
--- NOTE | 2021-09-27 16:48 | CT Report ---
PROCEDURE: Abdomen/Pelvis W INDICATIONS: Abdominal pain. Diarrhea. Rectal Cancer. CONTRAST: IV CONTRAST: Optiray 320 ml: 100 PO CONTRAST: Optiray 320 ml50 TECHNIQUE: After the administration of IV contrast, 5 mm thick sections acquired from the diaphragms to the symp hysis. 5 mm thick coronal and sagittal reformats were acquired. For radiation dose reduction, the f ollowing was used: automated exposure control, adjustment of mA and/or kV according to patient size. COMPARISON: Prior abdomen and pelvis CT, 09/18/2021. Correlation is made with the overlapping portio ns of the patient prior chest CT angiogram, 09/23/2021. FINDINGS: Image quality: Excellent. ABDOMEN: Lung bases: Moderate bilateral pleural effusions are seen. Overlying enhancing atelectasis can be see n. There is partial visualization of a central line, with the tip near the cavoatrial junction. Heart size is normal. Solid organs: Liver and spleen are normal in size and enhancement. Gallbladder has been removed. B iliary system is non dilated. Pancreas enhances normally. No adrenal nodules. Kidneys demonstrate normal size and enhancement, without hydronephrosis. Along the lateral aspect of the left kidney, there is a water density cyst seen that measures 5.3 cm. Peritoneum and bowel: Small bowel loops are abnormally dilated proximally and measure up to 4.2 cm. T he distal small bowel loops are decompressed. Is a relative transition region seen within the right l ower quadrant of the abdomen. The distal small bowel loops demonstrate wall thickening and hyperenhan cement. There is a mild amount of fluid seen along the leaves of the mesentery. A mild amount of asci eduard is seen. No free air is seen. No abscess collection can be seen. The stomach is mildly distended with fluid, although not as prominent as on the 09/18/2021 examination. Nodes and vessels: No retroperitoneal or mesenteric adenopathy by size criteria. Aorta and inferior vena cava are normal in size. Miscellaneous: No ventral hernias. PELVIS: Genitourinary: Bladder wall thickness is normal. Miscellaneous: No inguinal hernias or adenopathy. Bones: No suspicious bony lesions. No vertebral body compression fractures. IMPRESSION: Abnormally thickened, hyperenhancing small bowel loops distally. The distal small bowel appears more inflamed compared to the 09/18/2021 examination. Please correlate with infectious and i nflammatory causes. Ischemia is also possible, yet considered to be less likely. There are dilated loops of proximal small bowel seen, which appear similar to the 09/18/2021 examinat ion. No focal transition point can be seen, although there is a relative transition region within the righ t lower quadrant of the abdomen. Mild ascites is seen, without abscess or free air. Moderate bilateral pleural effusions, with overlying atelectasis. These have grown compared to 2020. Incidental note is made of: Central line partially seen Simple appearing left renal cyst Reviewed by: Cole Gates MD on 09/27/2021 3:46 PM [facility] Approved by: Cole Gates MD on 09/27/2021 3:46 PM [facility] Station ID: [id number]
[2021-09-27] MEDS: ACETAMINOPHEN 325 MG TABLET PO PRN (17:54)
[2021-09-27] MEDS: MORPHINE 2 MG/ML CARPUJECT IVP PRN (17:57)
[2021-09-27] MEDS: MIN OIL/DIMETHICON/COCONUT OIL 92 GM TUBE TOP PRN ×2 (18:02→23:39)
[2021-09-27] MEDS: PIPERACILLIN/TAZOBACTAM 4.5 GM in SODIUM CHLORIDE 0.9% MINIBAG 100 ML IV SCH (19:48)
[2021-09-27] MEDS ORDERED: CIPROFLOXACIN 250 MG TABLET PO SCH (21:00)
[2021-09-27] MEDS: POTASSIUM CHLOR 10 MEQ/100 ML 10 MEQ/100 ML BAG IV SCH ×2 (22:17→23:22)
[2021-09-27] MEDS: ONDANSETRON 4 MG/2 ML VIAL IVP PRN (23:39)
[2021-09-28] MEDS: POTASSIUM CHLOR 10 MEQ/100 ML 10 MEQ/100 ML BAG IV SCH ×2 (00:24→01:33)
[2021-09-28] MEDS: D5.45NS W/20 MEQ KCL 1,000 ML IV SCH ×2 (01:04→12:48)
--- NOTE | 2021-09-28 01:33 | XRAY Report ---
PROCEDURE: Abdomen 1 View X-Ray INDICATIONS: worsening abd pain, nausea vomiting TECHNIQUE: 1 view of the abdomen were acquired. COMPARISON: Abdominal plain films, 09/22/2021. Correlation is made with abdomen pelvis CT, 09/27/2021. FINDINGS: Surgical changes and devices: Cholecystectomy clips are seen. Bowel: Abnormally dilated loops of small bowel are again seen, which measure up to 5.7 cm. The stomac h is also prominent and gas filled. Air-fluid levels are not assessed on this supine only study. Soft tissues: No masses; visualized solid organ contours appear normal in size. No suspicious abdom inal calcifications. A Vaz catheter is seen. Extruding contrast is seen within the bladder. Bones: No suspicious bony abnormalities. IMPRESSION: Prominently dilated loops of small bowel are seen, which were seen on the recent prior CT, 09/27/2021. The small bowel loops are are more prominent than on the 09/22/2021 plain film examination. Reviewed by: Cole Gates MD on 09/28/2021 12:32 AM [facility] Approved by: Cole Gates MD on 09/28/2021 12:32 AM [facility] Station ID: [id number]
[2021-09-28] MEDS: PIPERACILLIN/TAZOBACTAM 4.5 GM in SODIUM CHLORIDE 0.9% MINIBAG 100 ML IV SCH ×3 (04:06→20:01)
[2021-09-28] MEDS: PANTOPRAZOLE 40 MG TABLET PO SCH (06:10)
[2021-09-28 06:14] LABS: BASOPHILS % (AUTO) 1.3 %; EOSINOPHILS % (AUTO) 0.5 %; HCT - HEMATOCRIT 28.7 % (42.0-52.0); HGB - HEMOGLOBIN 9.5 g/dL (14.0-18.0); LYMPHOCYTES % (AUTO) 7.2 %; MEAN CORPUSCULAR HEMOGLOBIN 33.6 pg (27.0-31.0); MEAN CORPUSCULAR HGB CONC 33.1 g/dL (32.0-36.0); MEAN CORPUSCULAR VOLUME 101.4 fL (80.0-94.0); MEAN PLATELET VOLUME 11.6 fL (7.4-11.4); MONOCYTES % (AUTO) 3.8 %; NEUTROPHILS % (AUTO) 86.4 %; PLT - PLATELET COUNT 147 10^3/uL (130-450); RED BLOOD COUNT 2.83 10^6/uL (4.70-6.10); RED CELL DISTRIBUTION WIDTH 19.1 % (12.0-15.0); WHITE BLOOD COUNT 6.4 x10^3/uL (4.8-10.8)
[2021-09-28 06:16] LABS: ABNORMAL LYMPHS % (MANUAL) 0 %
[2021-09-28 06:20] LABS: CALCIUM 7.1 mg/dL (8.5-10.3); CREATININE 1.3 mg/dL (0.6-1.2); POTASSIUM 3.1 mmol/L (3.5-5.0)
[2021-09-28 06:32] LABS: BAND NEUTROPHILS % (MANUAL) 18 %; BASOPHILS # (MANUAL) 0.1 10^3/uL (0-0.1); BASOPHILS % (MANUAL) 1 %; EOSINOPHILS # (MANUAL) 0.1 10^3/uL (0-0.7); LYMPHOCYTES # (MANUAL) 0.7 10^3/uL (1.5-3.5); LYMPHOCYTES % (MANUAL) 11 %; MONOCYTES # (MANUAL) 0.3 10^3/uL (0.0-1.0); NEUTROPHILS # (MANUAL) 5.3 10^3/uL (1.5-6.6)
[2021-09-28 06:33] LABS: DIFFERENTIAL COMMENT MANUAL DIFFERENTIAL; PLATELET ESTIMATE, MANUAL NORMAL (130-450,000) (NORMAL); PLATELET MORPHOLOGY NORMAL APPEARANCE (NORMAL); WBC MORPHOLOGY (MULTIPLE) NORMAL APPEARANCE (NORMAL)
[2021-09-28] MEDS: ENOXAPARIN 40 MG/0.4 ML SYRINGE SUBQ SCH (10:11)
[2021-09-28] MEDS: diltiaZEM CD 120 MG CAPSULE PO SCH (10:15)
[2021-09-28] MEDS: SODIUM CHLORIDE FLUSH 0.9% 10 ML SYRINGE IVP SCH ×3 (10:16→20:02)
[2021-09-28] MEDS: OLIVE IV SCH (17:24)
[2021-09-28] MEDS: SOY IV SCH (17:24)
[2021-09-28] MEDS: FAT EMULSION IV SCH (17:24)
[2021-09-28] MEDS: PHOSPHO IV SCH (17:24)
--- NOTE | 2021-09-28 17:30 | PROVIDER PROGRESS NOTE ---
Subjective - Prog Note Date Prog Note Date: 09/28/21 - Subjective Subjective: He feels much better today. Only has minimal abdominal pain. He has had 3-4 bowel movements today. He is requesting a popsicle. Current Medications - Current Medications Current Medications: Active Medications Acetaminophen (Acetaminophen 325 Mg Tablet) 650 mg PO Q4HR PRN PRN Reason: Pain 1 to 4 Last Admin: 09/27/21 17:54 Dose: 650 mg Documented by: Al Hydroxide/Mg Hydroxide (Mag Hydrox/Al Hydrox/Simeth 30 Ml Udc) 30 ml PO Q4HR PRN PRN Reason: INDIGESTION Last Admin: 09/22/21 21:00 Dose: 30 ml Documented by: Albuterol (Albuterol Neb 2.5 Mg/3 Ml) 2.5 mg INH Q4HR PRN PRN Reason: Wheezing Diltiazem HCl (Diltiazem Cd 120 Mg Capsule) 120 mg PO DAILY [facility] Last Admin: 09/28/21 10:15 Dose: Not Given Documented by: Enoxaparin Sodium (Enoxaparin 40 Mg/0.4 Ml Syringe) 40 mg SUBQ DAILY [facility] Last Admin: 09/28/21 10:11 Dose: 40 mg Documented by: Heparin Sodium (Beef Lung) (Heparin Flush 50 Units/5 Ml Syringe) 30 - 50 unit IVP PRN PRN PRN Reason: Port Protocol (<24 hours) Last Admin: 09/27/21 04:13 Dose: 50 unit Documented by: Potassium Chloride/Dextrose/Sod Cl (D5.45ns W/20 Meq Kcl) 1,000 mls @ 83.333 mls/hr IV .Q12H [facility] Stop: 09/28/21 18:59 Last Admin: 09/28/21 12:48 Dose: 83.333 mls/hr Documented by: Piperacillin Sod/Tazobactam (Sod 4.5 gm/ Sodium Chloride) 100 mls @ 25 mls/hr IV Q8H [facility] Last Admin: 09/28/21 11:55 Dose: 25 mls/hr Documented by: Multivitamins 10 ml/ TRACE ELEMENTS 1 ml/ Amino Ac/Electrol/Dextrose/Calcium 2,011 mls @ 83 mls/hr IV TPN/PPN [facility] FAT EMULSION/OLIVE/SOY/PHOSPHO (Clinolipid 20% Iv Fat Emulsion) 50 gm in 250 mls @ 21 mls/hr IV 1900 [facility] Mineral Oil (Min Oil/Dimethicon/Coconut Oil 92 Gm Tube) 1 applic TOP PRN PRN PRN Reason: Skin Care Last Admin: 09/27/21 23:39 Dose: 1 applic Documented by: Morphine Sulfate (Morphine 2 Mg/Ml Carpuject) 2 mg IVP Q2HR PRN PRN Reason: Pain 8 to 10 Last Admin: 09/27/21 17:57 Dose: 2 mg Documented by: Ondansetron HCl (Ondansetron Odt 4 Mg Tablet) 4 mg TL Q6HR PRN PRN Reason: Nausea / Vomiting Ondansetron HCl (Ondansetron 4 Mg/2 Ml Vial) 4 mg IVP Q4HR PRN PRN Reason: Nausea / Vomiting Last Admin: 09/27/21 23:39 Dose: 4 mg Documented by: Oxycodone HCl (Oxycodone 5 Mg Tablet) 5 mg PO Q4HR PRN PRN Reason: Pain 5 to 7 Last Admin: 09/19/21 16:40 Dose: 5 mg Documented by: Pantoprazole Sodium (Pantoprazole 40 Mg Tablet) 40 mg PO QDAC [facility] Last Admin: 09/28/21 06:10 Dose: 40 mg Documented by: Sodium Chloride (Sodium Chloride Flush 0.9% 10 Ml Syringe) 10 ml IVP 0 100,0900,1700 [facility] Last Admin: 09/28/21 10:16 Dose: 10 ml Documented by: Sodium Chloride (Sodium Chloride Flush 0.9% 10 Ml Syringe) 10 ml IVP PRN PRN PRN Reason: NEEDED PER PROVIDER ORDERS Last Admin: 09/27/21 04:12 Dose: 20 ml Documented by: Potassium Chloride [K-Dur] 40 meq PO BID 09/08/21 Diphenoxylate/Atropine [Lomotil] 2.5 mg PO PRN PRN 09/15/21 Objective - Vital Signs/Intake & Output Reviewed Vital Signs: Yes Vital Signs: Vital Signs x48h Temp Pulse Resp BP Pulse Ox 09/28/21 15:36 90 30 H 98/53 L 100 09/28/21 12:41 36.4 C L 101 H 28 H 90/45 L 99 Intake & Output: Intake & Output 09/26/21 09/27/21 09/27/21 09/28/21 00:59 00:59 23:59 23:59 Intake Total 2318.604 Output Total 1600 Balance 718.604 - Objective General Appearance: positive: No acute distress, Alert Eyes Bilateral: positive: Normal inspection, Conjunctivae nml ENT: positive: ENT inspection nml, Other (NG tube in place.) Neck: positive: Nml inspection Respiratory: positive: No respiratory distress, Other (Diminished in bases.) Cardiovascular: positive: Tachycardia. negative: Irregularly irregular, Systolic murmur Abdomen: positive: Nml bowel sounds, No distention, Tenderness (Mild diffuse tenderness.). negative: Guarding, Rebound Skin: positive: Warm, Dry Extremities: positive: Pedal edema (Trace to +1 edema in bilateral lower extremities.) Neurologic/Psychiatric: negative: Disoriented to person, Disoriented to place - Lab Results Fish Bones: 09/28/21 05:20 09/28/21 05:20 Other Labs: Lab Results x24hrs 09/28/21 09/28/21 09/28/21 Range/Units 11:05 05:58 05:20 WBC (4.8-10.8) x10^3/uL RBC (4.70-6.10) 10^6/uL Hgb (14.0-18.0) g/dL Hct (42.0-52.0) % MCV (80.0-94.0) fL MCH (27.0-31.0) pg MCHC (32.0-36.0) g/dL RDW (12.0-15.0) % Plt Count (130-450) 10^3/uL MPV (7.4-11.4) fL Neut # (Auto) Lymph # (Auto) Bee # (Auto) Eos # (Auto) Baso # (Auto) Absolute Nucleated RBC Total Counted Band Neuts % (Manual) (0 - 10) % Abnorm Lymph % (Manual) % Nucleated RBC % Neutrophils # (Manual) (1.5-6.6) 10^3/uL Lymphocytes # (Manual) (1.5-3.5) 10^3/uL Monocytes # (Manual) (0.0-1.0) 10^3/uL Eosinophils # (Manual) (0-0.7) 10^3/uL Basophils # (Manual) (0-0.1) 10^3/uL Differential Comment WBC Morphology (NORMAL) Platelet Estimate (NORMAL) Platelet Morphology (NORMAL) RBC Morph Micro Appear (NORMAL) Sodium (135-145) mmol/L Potassium (3.5-5.0) mmol/L Chloride (101-111) mmol/L Carbon Dioxide (21-32) mmol/L Anion Gap (6-13) BUN (6-20) mg/dL Creatinine (0.6-1.2) mg/dL Estimated GFR (MDRD) (>89) Glucose (70-100) mg/dL POC Whole Bld Glucose 93 87 (70 - 100) mg/dL Lactic Acid (0.5-2.2) mmol/L Calcium (8.5-10.3) mg/dL Magnesium (1.7-2.8) mg/dL C-Reactive Protein 19.0 H (0-1.0) mg/dL 09/28/21 09/28/21 09/28/21 Range/Units 05:20 05:20 01:14 WBC 6.4 (4.8-10.8) x10^3/uL RBC 2.83 L (4.70-6.10) 10^6/uL Hgb 9.5 L (14.0-18.0) g/dL Hct 28.7 L (42.0-52.0) % MCV 101.4 H (80.0-94.0) fL MCH 33.6 H (27.0-31.0) pg MCHC 33.1 (32.0-36.0) g/dL RDW 19.1 H (12.0-15.0) % Plt Count 147 (130-450) 10^3/uL MPV 11.6 H (7.4-11.4) fL Neut # (Auto) Not Reportable Lymph # (Auto) Not Reportable Bee # (Auto) Not Reportable Eos # (Auto) Not Reportable Baso # (Auto) Not Reportable Absolute Nucleated RBC Not Reportable Total Counted 100 Band Neuts % (Manual) 18 H (0 - 10) % Abnorm Lymph % (Manual) 0 % Nucleated RBC % Not Reportable Neutrophils # (Manual) 5.3 (1.5-6.6) 10^3/uL Lymphocytes # (Manual) 0.7 L (1.5-3.5) 10^3/uL Monocytes # (Manual) 0.3 (0.0-1.0) 10^3/uL Eosinophils # (Manual) 0.1 (0-0.7) 10^3/uL Basophils # (Manual) 0.1 (0-0.1) 10^3/uL Differential Comment MANUAL DIFFERENTIAL WBC Morphology NORMAL APPEARANCE (NORMAL) Platelet Estimate NORMAL (130-450,000) (NORMAL) Platelet Morphology NORMAL APPEARANCE (NORMAL) RBC Morph Micro Appear 1+ POLYCHROMASIA (NORMAL) Sodium 141 (135-145) mmol/L Potassium 3.1 L (3.5-5.0) mmol/L Chloride 117 H (101-111) mmol/L Carbon Dioxide 16 L (21-32) mmol/L Anion Gap 8.0 (6-13) BUN 25 H (6-20) mg/dL Creatinine 1.3 H (0.6-1.2) mg/dL Estimated GFR (MDRD) 54 L (>89) Glucose 103 H (70-100) mg/dL POC Whole Bld Glucose (70 - 100) mg/dL Lactic Acid 1.9 (0.5-2.2) mmol/L Calcium 7.1 L (8.5-10.3) mg/dL Magnesium 2.0 (1.7-2.8) mg/dL C-Reactive Protein (0-1.0) mg/dL 09/28/21 09/27/21 Range/Units 00:12 18:02 WBC (4.8-10.8) x10^3/uL RBC (4.70-6.10) 10^6/uL Hgb (14.0-18.0) g/dL Hct (42.0-52.0) % MCV (80.0-94.0) fL MCH (27.0-31.0) pg MCHC (32.0-36.0) g/dL RDW (12.0-15.0) % Plt Count (130-450) 10^3/uL MPV (7.4-11.4) fL Neut # (Auto) Lymph # (Auto) Bee # (Auto) Eos # (Auto) Baso # (Auto) Absolute Nucleated RBC Total Counted Band Neuts % (Manual) (0 - 10) % Abnorm Lymph % (Manual) % Nucleated RBC % Neutrophils # (Manual) (1.5-6.6) 10^3/uL Lymphocytes # (Manual) (1.5-3.5) 10^3/uL Monocytes # (Manual) (0.0-1.0) 10^3/uL Eosinophils # (Manual) (0-0.7) 10^3/uL Basophils # (Manual) (0-0.1) 10^3/uL Differential Comment WBC Morphology (NORMAL) Platelet Estimate (NORMAL) Platelet Morphology (NORMAL) RBC Morph Micro Appear (NORMAL) Sodium (135-145) mmol/L Potassium (3.5-5.0) mmol/L Chloride (101-111) mmol/L Carbon Dioxide (21-32) mmol/L Anion Gap (6-13) BUN (6-20) mg/dL Creatinine (0.6-1.2) mg/dL Estimated GFR (MDRD) (>89) Glucose (70-100) mg/dL POC Whole Bld Glucose 82 89 (70 - 100) mg/dL Lactic Acid (0.5-2.2) mmol/L Calcium (8.5-10.3) mg/dL Magnesium (1.7-2.8) mg/dL C-Reactive Protein (0-1.0) mg/dL ABX Reporting Has patient been on IV antibiotics over the past 48 hours?: Yes Assessment/Plan - Problem List (1) Adynamic ileus Impression: CT yesterday showed worsening dilated loops of small bowel. NG tube was placed once again he has been made n.p.o. Interestingly enough, he still has had 3-4 bowel movements each day. We will keep him on Zosyn IV for suspected neutropenic colitis. We will restart him on TPN today. We will recheck him for C. difficile. Although he declined over the weekend, he physically looks improved over the past few days. (2) Neutropenic colitis Impression: CT continues to show inflammatory changes. He continues to have diarrhea but he is afebrile. His abdominal pain is improved today. We will continue him on Zosyn IV. We will check for C. difficile once again although this was negative a few days ago. Will not check stool cultures as these have been checked twice and both have been negative. Continue n.p.o. status for the time being. TPN for nutrition. We did discuss transferring to higher-level care but he prefers to hold off on this for the time being. (3) Hypotension Impression: He is still hypotensive with systolics in the 90s. There is currently no evidence of hypoperfusion. Lactic acid was normal and his renal function is stable as well as urine output. We are holding diltiazem. We will hold off on further IV hydration as he is quite edematous and has received multiple liters of IV fluids. If his blood pressure drops further then he may need norepinephrine. (4) Hypoglycemia Impression: This was secondary to lack of oral intake. He has since been on D5 half-normal and will now be on TPN once again. We will monitor his blood glucose closely. (5) Acidosis, hyperchloremic Impression: This is still ongoing. His bicarbonate today is decreased to 16 and his chloride remains elevated. We will recheck labs in the morning and monitor this trend. If his bicarb continues to decrease then we will obtain a VBG or ABG. He may potentially need a bicarbonate infusion. (6) Chemotherapy induced neutropenia Impression: He was initially neutropenic upon his arrival but this has since resolved. Nonetheless, he remains on IV antibiotics for suspected neutropenic colitis. (7) Hypernatremia Impression: This has resolved. This was secondary to decreased oral intake and resuscitation with normal saline. (8) SVT (supraventricular tachycardia) Impression: This was initially treated with a diltiazem drip and IV digoxin. He was sent switched to oral Cardizem but due to hypotension, we have held this. We will continue to monitor on telemetry and resume diltiazem when appropriate. (9) Adenocarcinoma of rectum, stage 3 Impression: He was diagnosed earlier this year and is currently seeking treatment with FOLFOX. He will continue outpatient follow-up with his oncologist once discharged. (10) Acute kidney injury Impression: His creatinine is slightly increased today which I suspect may be due to ATN secondary to the hypotension. His urine output has remained adequate. We will continue to monitor for the time being but will hold off on further hydration given he is so edematous and has received multiple liters of IV fluids.
[2021-09-28] MEDS ORDERED: TPN (CLINIMIX E 5/15) 2,000 ML with MULTIVITAMIN 10 ML, TRACE ELEMENTS 1 ML IV SCH ×3 (19:00)
[2021-09-29] MEDS: PIPERACILLIN/TAZOBACTAM 4.5 GM in SODIUM CHLORIDE 0.9% MINIBAG 100 ML IV SCH ×3 (04:25→19:50)
[2021-09-29] MEDS: SODIUM CHLORIDE FLUSH 0.9% 10 ML SYRINGE IVP PRN ×5 (04:45→20:27)
[2021-09-29 05:02] LABS: BASOPHILS % (AUTO) 1.1 %; EOSINOPHILS % (AUTO) 2.1 %; HCT - HEMATOCRIT 25.1 % (42.0-52.0); HGB - HEMOGLOBIN 8.2 g/dL (14.0-18.0); LYMPHOCYTES % (AUTO) 15.7 %; MEAN CORPUSCULAR HEMOGLOBIN 33.5 pg (27.0-31.0); MEAN CORPUSCULAR HGB CONC 32.7 g/dL (32.0-36.0); MEAN CORPUSCULAR VOLUME 102.4 fL (80.0-94.0); MEAN PLATELET VOLUME 11.1 fL (7.4-11.4); MONOCYTES % (AUTO) 3.5 %; NEUTROPHILS % (AUTO) 76.3 %; PLT - PLATELET COUNT 165 10^3/uL (130-450); RED BLOOD COUNT 2.45 10^6/uL (4.70-6.10); RED CELL DISTRIBUTION WIDTH 19.3 % (12.0-15.0); WHITE BLOOD COUNT 3.8 x10^3/uL (4.8-10.8)
[2021-09-29 05:08] LABS: ABNORMAL LYMPHS % (MANUAL) 0 %
[2021-09-29 05:20] LABS: BILIRUBIN,DIRECT 0.1 mg/dL (0.1-0.5); BILIRUBIN,TOTAL 0.4 mg/dL (0.2-1.0); CALCIUM 6.8 mg/dL (8.5-10.3); CREATININE 1.3 mg/dL (0.6-1.2); TOTAL PROTEIN 3.6 g/dL (6.7-8.2)
[2021-09-29 05:21] LABS: POTASSIUM 2.5 mmol/L (3.5-5.0)
[2021-09-29 05:22] LABS: BAND NEUTROPHILS % (MANUAL) 8 %; LYMPHOCYTES # (MANUAL) 0.6 10^3/uL (1.5-3.5); LYMPHOCYTES % (MANUAL) 16 %; MYELOCYTES % (MANUAL) 1 %; NEUTROPHILS # (MANUAL) 3.1 10^3/uL (1.5-6.6)
[2021-09-29 05:23] LABS: DIFFERENTIAL COMMENT MANUAL DIFFERENTIAL; PLATELET ESTIMATE, MANUAL NORMAL (130-450,000) (NORMAL); PLATELET MORPHOLOGY NORMAL APPEARANCE (NORMAL); WBC MORPHOLOGY (MULTIPLE) NORMAL APPEARANCE (NORMAL)
[2021-09-29] MEDS: PANTOPRAZOLE 40 MG TABLET PO SCH (06:16)
[2021-09-29] MEDS: POTASSIUM CHLOR 10 MEQ/100 ML 10 MEQ/100 ML BAG IV SCH ×10 (07:05→23:03)
[2021-09-29] MEDS: diltiaZEM CD 120 MG CAPSULE PO SCH (08:25)
[2021-09-29] MEDS: ENOXAPARIN 40 MG/0.4 ML SYRINGE SUBQ SCH (08:29)
[2021-09-29] MEDS: SODIUM CHLORIDE FLUSH 0.9% 10 ML SYRINGE IVP SCH ×3 (08:37→20:27)
[2021-09-29] MEDS: SODIUM CHLORIDE 0.9% 500 ML IV PRN (10:09)
[2021-09-29] MEDS: ACETAMINOPHEN 325 MG TABLET PO PRN ×2 (10:47→23:07)
--- NOTE | 2021-09-29 12:51 | PROVIDER PROGRESS NOTE ---
Subjective - Prog Note Date Prog Note Date: 09/29/21 Prog Note Time: 12:50 - Subjective Subjective: Maikel reports that he is feeling awful today despite his improved physical appearance. He appears to be in good spirits today and is very conversational. He is eager to share his ideas of improving the patient experience including lollipops and music television channels. He had a 4th NG tube placed and is receiving TPN. He has since had several bowel movements. He is requesting flavor drops for his sips of water as it is bland. His abdominal pain continues to improve. CT abdomen and pelvis on 09/27 showed abnormally thickened, hyperenhancing small bowel loops distally; these are more inflamed than comparison with 09/18 study and correlate with an infectious or inflammatory process. Abdominal x-ray on 09/28 showed abnormally dilated loops of small bowel measuring up to 5.7cm. This is consistent with the CT results from 09/27 and is more prominent than comparison with plain film on 09/22. His respirations are normally in the low 20s with occasional increases up to the 40s. His potassium has dropped to 2.4 this morning and he was given 40 mEq of IV potassium. Retest for C. diff yesterday was negative. Current Medications - Current Medications Current Medications: Active Medications Acetaminophen (Acetaminophen 325 Mg Tablet) 650 mg PO Q4HR PRN PRN Reason: Pain 1 to 4 Last Admin: 09/29/21 10:47 Dose: 650 mg Documented by: Al Hydroxide/Mg Hydroxide (Mag Hydrox/Al Hydrox/Simeth 30 Ml Udc) 30 ml PO Q4HR PRN PRN Reason: INDIGESTION Last Admin: 09/22/21 21:00 Dose: 30 ml Documented by: Albuterol (Albuterol Neb 2.5 Mg/3 Ml) 2.5 mg INH Q4HR PRN PRN Reason: Wheezing Diltiazem HCl (Diltiazem Cd 120 Mg Capsule) 120 mg PO DAILY [facility] Last Admin: 09/29/21 08:25 Dose: 120 mg Documented by: Enoxaparin Sodium (Enoxaparin 40 Mg/0.4 Ml Syringe) 40 mg SUBQ DAILY [facility] Last Admin: 09/29/21 08:29 Dose: 40 mg Documented by: Heparin Sodium (Beef Lung) (Heparin Flush 50 Units/5 Ml Syringe) 30 - 50 unit IVP PRN PRN PRN Reason: Port Protocol (<24 hours) Last Admin: 09/27/21 04:13 Dose: 50 unit Documented by: Piperacillin Sod/Tazobactam (Sod 4.5 gm/ Sodium Chloride) 100 mls @ 25 mls/hr IV Q8H [facility] Last Admin: 09/29/21 12:14 Dose: 25 mls/hr Documented by: Multivitamins 10 ml/ TRACE ELEMENTS 1 ml/ Amino Ac/Electrol/Dextrose/Calcium 2,011 mls @ 83 mls/hr IV TPN/PPN [facility] Last Infusion: 09/29/21 06:17 Dose: 83 mls/hr Documented by: FAT EMULSION/OLIVE/SOY/PHOSPHO (Clinolipid 20% Iv Fat Emulsion) 50 gm in 250 mls @ 21 mls/hr IV 1900 [facility] Last Infusion: 09/29/21 05:55 Dose: Infused Documented by: Sodium Chloride (Normal Saline 0.9%) 500 mls @ 20 mls/hr IV Q24H PRN PRN Reason: TKO RATE Last Infusion: 09/29/21 10:45 Dose: 50 mls/hr Documented by: Mineral Oil (Min Oil/Dimethicon/Coconut Oil 92 Gm Tube) 1 applic TOP PRN PRN PRN Reason: Skin Care Last Admin: 09/27/21 23:39 Dose: 1 applic Documented by: Morphine Sulfate (Morphine 2 Mg/Ml Carpuject) 2 mg IVP Q2HR PRN PRN Reason: Pain 8 to 10 Last Admin: 09/27/21 17:57 Dose: 2 mg Documented by: Ondansetron HCl (Ondansetron Odt 4 Mg Tablet) 4 mg TL Q6HR PRN PRN Reason: Nausea / Vomiting Ondansetron HCl (Ondansetron 4 Mg/2 Ml Vial) 4 mg IVP Q4HR PRN PRN Reason: Nausea / Vomiting Last Admin: 09/27/21 23:39 Dose: 4 mg Documented by: Oxycodone HCl (Oxycodone 5 Mg Tablet) 5 mg PO Q4HR PRN PRN Reason: Pain 5 to 7 Last Admin: 09/19/21 16:40 Dose: 5 mg Documented by: Pantoprazole Sodium (Pantoprazole 40 Mg Tablet) 40 mg PO QDAC [facility] Last Admin: 09/29/21 06:16 Dose: 40 mg Documented by: Sodium Chloride (Sodium Chloride Flush 0.9% 10 Ml Syringe) 10 ml IVP 0100,0900,1700 [facility] Last Admin: 09/29/21 08:37 Dose: 10 ml Documented by: Sodium Chloride (Sodium Chloride Flush 0.9% 10 Ml Syringe) 10 ml IVP PRN PRN PRN Reason: NEEDED PER PROVIDER ORDERS Last Admin: 09/29/21 12:13 Dose: 10 ml Documented by: Potassium Chloride [K-Dur] 40 meq PO BID 09/08/21 Diphenoxylate/Atropine [Lomotil] 2.5 mg PO PRN PRN 09/15/21 Objective - Vital Signs/Intake & Output Reviewed Vital Signs: Yes Vital Signs: Vital Signs x48h Temp Pulse Resp BP BP Pulse Ox 09/29/21 12:23 36.6 C 79 21 87/68 L 100 09/29/21 08:01 36.5 C 82 25 H 94/55 L 100 Intake & Output: Intake & Output 09/27/21 09/27/21 09/28/21 09/29/21 00:59 23:59 23:59 23:59 Intake Total 2864.714 1961.317 Output Total 2049 2049 Balance 814.714 -88.683 - Objective General Appearance: positive: No acute distress, Alert Eyes Bilateral: positive: PERRL, EOMI ENT: positive: No signs of dehydration Neck: positive: No JVD. negative: Stiff neck Respiratory: positive: Chest non-tender. negative: Wheezes, Rales, Rhonchi Cardiovascular: positive: Regular rate & rhythm - Lab Results Fish Bones: 09/30/21 04:10 09/30/21 04:10 Other Labs: Lab Results x24hrs 09/29/21 09/29/21 09/29/21 Range/Units 05:53 04:55 04:55 WBC 3.8 L (4.8-10.8) x10^3/uL RBC 2.45 L (4.70-6.10) 10^6/uL Hgb 8.2 L (14.0-18.0) g/dL Hct 25.1 L (42.0-52.0) % MCV 102.4 H (80.0-94.0) fL MCH 33.5 H (27.0-31.0) pg MCHC 32.7 (32.0-36.0) g/dL RDW 19.3 H (12.0-15.0) % Plt Count 165 (130-450) 10^3/uL MPV 11.1 (7.4-11.4) fL Neut # (Auto) Not Reportable Lymph # (Auto) Not Reportable [place] # (Auto) Not Reportable Eos # (Auto) Not Reportable Baso # (Auto) Not Reportable Absolute Nucleated RBC Not Reportable Total Counted 100 Band Neuts % (Manual) 8 (0 - 10) % Abnorm Lymph % (Manual) 0 % Myelocytes % 1 H ( - 0) % Nucleated RBC % Not Reportable Neutrophils # (Manual) 3.1 (1.5-6.6) 10^3/uL Lymphocytes # (Manual) 0.6 L (1.5-3.5) 10^3/uL Monocytes # (Manual) 0.0 (0.0-1.0) 10^3/uL Eosinophils # (Manual) 0.0 (0-0.7) 10^3/uL Basophils # (Manual) 0.0 (0-0.1) 10^3/uL Differential Comment MANUAL DIFFERENTIAL WBC Morphology NORMAL APPEARANCE (NORMAL) Platelet Estimate NORMAL (130-450,000) (NORMAL) Platelet Morphology NORMAL APPEARANCE (NORMAL) RBC Morph Micro Appear 1+ POLYCHROMASIA (NORMAL) Sodium (135-145) mmol/L Potassium (3.5-5.0) mmol/L Chloride (101-111) mmol/L Carbon Dioxide (21-32) mmol/L Anion Gap (6-13) BUN (6-20) mg/dL Creatinine (0.6-1.2) mg/dL Estimated GFR (MDRD) (>89) Glucose (70-100) mg/dL POC Whole Bld Glucose 127 H (70 - 100) mg/dL Calcium (8.5-10.3) mg/dL Phosphorus 3.3 (2.5-4.6) mg/dL Magnesium (1.7-2.8) mg/dL Total Bilirubin (0.2-1.0) mg/dL Direct Bilirubin (0.1-0.5) mg/dL AST (10-42) IU/L ALT (10-60) IU/L Alkaline Phosphatase (42-121) IU/L Total Protein (6.7-8.2) g/dL Albumin (3.2-5.5) g/dL Globulin (2.1-4.2) g/dL Prealbumin (18-45) mg/dL Triglycerides ( - 149) mg/dL Stl C. diff Tox B Gene (NEGATIVE) 09/29/21 09/29/21 09/28/21 Range/Units 04:55 04:45 23:45 WBC (4.8-10.8) x10^3/uL RBC (4.70-6.10) 10^6/uL Hgb (14.0-18.0) g/dL Hct (42.0-52.0) % MCV (80.0-94.0) fL MCH (27.0-31.0) pg MCHC (32.0-36.0) g/dL RDW (12.0-15.0) % Plt Count (130-450) 10^3/uL MPV (7.4-11.4) fL Neut # (Auto) Lymph # (Auto) [place] # (Auto) Eos # (Auto) Baso # (Auto) Absolute Nucleated RBC Total Counted Band Neuts % (Manual) (0 - 10) % Abnorm Lymph % (Manual) % Myelocytes % ( - 0) % Nucleated RBC % Neutrophils # (Manual) (1.5-6.6) 10^3/uL Lymphocytes # (Manual) (1.5-3.5) 10^3/uL Monocytes # (Manual) (0.0-1.0) 10^3/uL Eosinophils # (Manual) (0-0.7) 10^3/uL Basophils # (Manual) (0-0.1) 10^3/uL Differential Comment WBC Morphology (NORMAL) Platelet Estimate (NORMAL) Platelet Morphology (NORMAL) RBC Morph Micro Appear (NORMAL) Sodium 141 (135-145) mmol/L Potassium 2.5 L* (3.5-5.0) mmol/L Chloride 118 H (101-111) mmol/L Carbon Dioxide 16 L (21-32) mmol/L Anion Gap 7.0 (6-13) BUN 24 H (6-20) mg/dL Creatinine 1.3 H (0.6-1.2) mg/dL Estimated GFR (MDRD) 54 L (>89) Glucose 150 H (70-100) mg/dL POC Whole Bld Glucose 132 H (70 - 100) mg/dL Calcium 6.8 L (8.5-10.3) mg/dL Phosphorus (2.5-4.6) mg/dL Magnesium 2.3 (1.7-2.8) mg/dL Total Bilirubin 0.4 (0.2-1.0) mg/dL Direct Bilirubin 0.1 (0.1-0.5) mg/dL AST 14 (10-42) IU/L ALT 14 (10-60) IU/L Alkaline Phosphatase 46 (42-121) IU/L Total Protein 3.6 L (6.7-8.2) g/dL Albumin 1.0 L (3.2-5.5) g/dL Globulin 2.6 (2.1-4.2) g/dL Prealbumin 6 L (18-45) mg/dL Triglycerides 156 H ( - 149) mg/dL Stl C. diff Tox B Gene (NEGATIVE) 09/28/21 09/28/21 Range/Units 21:27 18:29 WBC (4.8-10.8) x10^3/uL RBC (4.70-6.10) 10^6/uL Hgb (14.0-18.0) g/dL Hct (42.0-52.0) % MCV (80.0-94.0) fL MCH (27.0-31.0) pg MCHC (32.0-36.0) g/dL RDW (12.0-15.0) % Plt Count (130-450) 10^3/uL MPV (7.4-11.4) fL Neut # (Auto) Lymph # (Auto) [place] # (Auto) Eos # (Auto) Baso # (Auto) Absolute Nucleated RBC Total Counted Band Neuts % (Manual) (0 - 10) % Abnorm Lymph % (Manual) % Myelocytes % ( - 0) % Nucleated RBC % Neutrophils # (Manual) (1.5-6.6) 10^3/uL Lymphocytes # (Manual) (1.5-3.5) 10^3/uL Monocytes # (Manual) (0.0-1.0) 10^3/uL Eosinophils # (Manual) (0-0.7) 10^3/uL Basophils # (Manual) (0-0.1) 10^3/uL Differential Comment WBC Morphology (NORMAL) Platelet Estimate (NORMAL) Platelet Morphology (NORMAL) RBC Morph Micro Appear (NORMAL) Sodium (135-145) mmol/L Potassium (3.5-5.0) mmol/L Chloride (101-111) mmol/L Carbon Dioxide (21-32) mmol/L Anion Gap (6-13) BUN (6-20) mg/dL Creatinine (0.6-1.2) mg/dL Estimated GFR (MDRD) (>89) Glucose (70-100) mg/dL POC Whole Bld Glucose 101 H (70 - 100) mg/dL Calcium (8.5-10.3) mg/dL Phosphorus (2.5-4.6) mg/dL Magnesium (1.7-2.8) mg/dL Total Bilirubin (0.2-1.0) mg/dL Direct Bilirubin (0.1-0.5) mg/dL AST (10-42) IU/L ALT (10-60) IU/L Alkaline Phosphatase (42-121) IU/L Total Protein (6.7-8.2) g/dL Albumin (3.2-5.5) g/dL Globulin (2.1-4.2) g/dL Prealbumin (18-45) mg/dL Triglycerides ( - 149) mg/dL Stl C. diff Tox B Gene NEGATIVE (NEGATIVE) Assessment/Plan - Problem List (1) Adynamic ileus Impression: CT 09/27 showed worsening dilated loops of small bowel consistent with an infectious or inflammatory process. Abdominal x-ray yesterday also showed abnormally dilated loops of small bowel measuring up to 5.7cm. These findings ar e consistent with 09/27 CT and are more prominent than 09/22 plain film. NG tube was placed once again yesterday and he has been made NPO Interestingly enough, he still has had 3-4 bowel movements each day. We will keep him on Zosyn IV for suspected neutropenic colitis. TPN restarted yesterday. C. diff test 09/28 negative. Although he declined over the weekend, he physically looks improved over the past few days. (2) Neutropenic colitis Impression: CT continues to show inflammatory changes. He continues to have diarrhea but he is afebrile. His abdominal pain is improved today. We will continue him on Zosyn IV. C. diff test 09/28 negative. Continue NPO status for the time being. TPN for nutrition. His Hgb on 09/18 was 16.8. Today it is 8.2. We did discuss transferring to higher-level care but he prefers to hold off on this for the time being. (3) Hypotension Impression: He is still hypotensive with systolics in the 90s. There is currently no evidence of hypoperfusion. Lactic acid was normal and his renal function is stable as well as urine output. We are holding diltiazem. We will hold off on further IV hydration as he is quite edematous and has received multiple liters of IV fluids. If his blood pressure drops further then he may need norepinephrine. (4) Hypoglycemia, resolved Impression: This was secondary to lack of oral intake. He has since been on D5 half-normal and will now be on TPN once again. Blood glucose 101 > 132 > 127. (5) Acidosis, hyperchloremic Impression: pH 7.242, Cl elevated at 118. CO2 is 16. This is likely due to his TPN. Will consider need for ABG or VBG. He may need a bicarbonate infusion if his condition worsens. (6) Chemotherapy induced neutropenia Impression: WBC count 09/18 was 2.0 and dropped to 1.3. On 09/23 it increased to 12.0. It has since dropped to 3.8. He remains on IV antibiotics for suspected neutropenic colitis. (7) Hypernatremia Impression: This has resolved. This was secondary to decreased oral intake and resuscitation with normal saline. (8) SVT (supraventricular tachycardia) Impression: This was initially treated with a diltiazem drip and IV digoxin. He was sent switched to oral Cardizem but due to hypotension, we have held this. We will continue to monitor on telemetry and resume diltiazem when appropriate. (9) Adenocarcinoma of rectum, stage 3 Impression: He was diagnosed earlier this year and is currently seeking treatment with FOLFOX. He will continue outpatient follow-up with his oncologist once discharged. (10) Acute kidney injury Impression: His creatinine has been slightly increased at 1.3, which I suspect may be due to ATN secondary to the hypotension. His urine output has remained adequate. We will continue to monitor for the time being but will hold off on further hydration given he is so edematous and has received multiple liters of IV fluids.
--- NOTE | 2021-09-29 14:12 | XRAY Report ---
PROCEDURE: Chest for Line Placement INDICATIONS: ng tube verification TECHNIQUE: One view of the chest was acquired. COMPARISON: 09/23/2021 FINDINGS: Surgical changes and devices: Left chest wall Port-A-Cath tip is in SVC. Enteric tube tip is below th e right hemidiaphragm millimeters in the expected location of distal stomach lumen/proximal small bow el. Surgical clips also seen in the gallbladder fossa.. Lungs and pleura: There is small right pleural effusion with right basilar atelectasis. Left lung is clear. No gross pneumothorax. Mediastinum: Mediastinal contours appear normal. Heart size is normal . Bones and chest wall: No suspicious bony lesions. Overlying soft tissues appear unremarkable. IMPRESSION: NG tube tip is in distal stomach/proximal small bowel within right upper quadrant. Small right pleura l effusion and right basilar atelectasis. No gross pneumothorax. Reviewed by: Arias Allen MD on 09/29/2021 2:11 PM PST Approved by: Arias Allen MD on 09/29/2021 2:11 PM PST Station ID: [id number]
[2021-09-29] MEDS: MIN OIL/DIMETHICON/COCONUT OIL 92 GM TUBE TOP PRN ×2 (17:51→23:03)
[2021-09-29] MEDS: TPN (CLINIMIX E 5/15) 2,000 ML with MULTIVITAMIN 10 ML, TRACE ELEMENTS 1 ML, POTASSIUM ... IV SCH ×4 (18:09)
[2021-09-29] MEDS: PHOSPHO IV SCH (18:13)
[2021-09-29] MEDS: FAT EMULSION IV SCH (18:13)
[2021-09-29] MEDS: OLIVE IV SCH (18:13)
[2021-09-29] MEDS: SOY IV SCH (18:13)
[2021-09-30] MEDS: POTASSIUM CHLOR 10 MEQ/100 ML 10 MEQ/100 ML BAG IV SCH ×6 (00:10→20:34)
[2021-09-30] MEDS: PIPERACILLIN/TAZOBACTAM 4.5 GM in SODIUM CHLORIDE 0.9% MINIBAG 100 ML IV SCH ×3 (04:10→21:36)
[2021-09-30] MEDS: SODIUM CHLORIDE FLUSH 0.9% 10 ML SYRINGE IVP PRN (04:10)
[2021-09-30] MEDS: MIN OIL/DIMETHICON/COCONUT OIL 92 GM TUBE TOP PRN (04:51)
[2021-09-30 05:26] LABS: BASOPHILS % (AUTO) 0.8 %; EOSINOPHILS % (AUTO) 2.2 %; HCT - HEMATOCRIT 25.1 % (42.0-52.0); HGB - HEMOGLOBIN 8.2 g/dL (14.0-18.0); LYMPHOCYTES % (AUTO) 21.9 %; MEAN CORPUSCULAR HEMOGLOBIN 33.7 pg (27.0-31.0); MEAN CORPUSCULAR HGB CONC 32.7 g/dL (32.0-36.0); MEAN CORPUSCULAR VOLUME 103.3 fL (80.0-94.0); MEAN PLATELET VOLUME 11.3 fL (7.4-11.4); MONOCYTES % (AUTO) 4.4 %; NEUTROPHILS % (AUTO) 68.8 %; PLT - PLATELET COUNT 172 10^3/uL (130-450); RED BLOOD COUNT 2.43 10^6/uL (4.70-6.10); RED CELL DISTRIBUTION WIDTH 19.5 % (12.0-15.0); WHITE BLOOD COUNT 3.7 x10^3/uL (4.8-10.8)
[2021-09-30 05:38] LABS: BILIRUBIN,DIRECT 0.1 mg/dL (0.1-0.5); BILIRUBIN,TOTAL 0.3 mg/dL (0.2-1.0); CALCIUM 6.9 mg/dL (8.5-10.3); CREATININE 0.9 mg/dL (0.6-1.2); POTASSIUM 3.3 mmol/L (3.5-5.0); TOTAL PROTEIN 3.5 g/dL (6.7-8.2)
[2021-09-30 05:43] LABS: ABNORMAL LYMPHS % (MANUAL) 0 %
[2021-09-30 05:55] LABS: BAND NEUTROPHILS % (MANUAL) 16 %; EOSINOPHILS # (MANUAL) 0.1 10^3/uL (0-0.7); LYMPHOCYTES # (MANUAL) 0.9 10^3/uL (1.5-3.5); LYMPHOCYTES % (MANUAL) 24 %; MONOCYTES # (MANUAL) 0.1 10^3/uL (0.0-1.0); NEUTROPHILS # (MANUAL) 2.7 10^3/uL (1.5-6.6)
[2021-09-30 05:56] LABS: DIFFERENTIAL COMMENT MANUAL DIFFERENTIAL; PLATELET ESTIMATE, MANUAL NORMAL (130-450,000) (NORMAL)
[2021-09-30] MEDS: PANTOPRAZOLE 40 MG TABLET PO SCH (06:02)
[2021-09-30] MEDS: diltiaZEM CD 120 MG CAPSULE PO SCH (08:15)
[2021-09-30] MEDS: SODIUM CHLORIDE FLUSH 0.9% 10 ML SYRINGE IVP SCH ×2 (09:05→16:42)
[2021-09-30] MEDS: ENOXAPARIN 40 MG/0.4 ML SYRINGE SUBQ SCH (09:06)
[2021-09-30] MEDS ORDERED: PSYLLIUM PACKET PO PRN (10:44)
--- NOTE | 2021-09-30 15:14 | PROVIDER PROGRESS NOTE ---
Subjective - Prog Note Date Prog Note Date: 09/30/21 Prog Note Time: 15:13 - Subjective Pt reports feeling: No change Subjective: He is still having gelatinous green bowel movements. He has been C. difficile negative, twice. He will get 4 out of 10 pain after each bowel movement. But otherwise he is comfortable. He is just weak, hates the NG tube. Current Medications - Current Medications Current Medications: Active Medications Acetaminophen (Acetaminophen 325 Mg Tablet) 650 mg PO Q4HR PRN PRN Reason: Pain 1 to 4 Last Admin: 09/29/21 23:07 Dose: 650 mg Documented by: Al Hydroxide/Mg Hydroxide (Mag Hydrox/Al Hydrox/Simeth 30 Ml Udc) 30 ml PO Q4HR PRN PRN Reason: INDIGESTION Last Admin: 09/22/21 21:00 Dose: 30 ml Documented by: Diltiazem HCl (Diltiazem Cd 120 Mg Capsule) 120 mg PO DAILY [facility] Last Admin: 09/30/21 08:15 Dose: Not Given Documented by: Enoxaparin Sodium (Enoxaparin 40 Mg/0.4 Ml Syringe) 40 mg SUBQ DAILY [facility] Last Admin: 09/30/21 09:06 Dose: 40 mg Documented by: Heparin Sodium (Beef Lung) (Heparin Flush 50 Units/5 Ml Syringe) 30 - 50 unit IVP PRN PRN PRN Reason: Port Protocol (<24 hours) Last Admin: 09/27/21 04:13 Dose: 50 unit Documented by: Piperacillin Sod/Tazobactam (Sod 4.5 gm/ Sodium Chloride) 100 mls @ 25 mls/hr IV Q8H [facility] Last Admin: 09/30/21 12:19 Dose: 25 mls/hr Documented by: FAT EMULSION/OLIVE/SOY/PHOSPHO (Clinolipid 20% Iv Fat Emulsion) 50 gm in 250 mls @ 21 mls/hr IV 1900 [facility] Last Infusion: 09/30/21 06:50 Dose: Infused Documented by: Sodium Chloride (Normal Saline 0.9%) 500 mls @ 20 mls/hr IV Q24H PRN PRN Reason: TKO RATE Last Infusion: 09/30/21 02:22 Dose: 20 mls/hr Documented by: Multivitamins 10 ml/ TRACE ELEMENTS 1 ml/ Potassium Chloride 40 meq/ Amino Ac/Electrol/Dextrose/Calcium 2,031 mls @ 83 mls/hr IV TPN/PPN [facility] Last Infusion: 09/30/21 07:00 Dose: 83 mls/hr Documented by: Mineral Oil (Min Oil/Dimethicon/Coconut Oil 92 Gm Tube) 1 applic TOP PRN PRN PRN Reason: Skin Care Last Admin: 09/30/21 04:51 Dose: 1 applic Documented by: Morphine Sulfate (Morphine 2 Mg/Ml Carpuject) 2 mg IVP Q2HR PRN PRN Reason: Pain 8 to 10 Last Admin: 09/27/21 17:57 Dose: 2 mg Documented by: Ondansetron HCl (Ondansetron Odt 4 Mg Tablet) 4 mg TL Q6HR PRN PRN Reason: Nausea / Vomiting Ondansetron HCl (Ondansetron 4 Mg/2 Ml Vial) 4 mg IVP Q4HR PRN PRN Reason: Nausea / Vomiting Last Admin: 09/27/21 23:39 Dose: 4 mg Documented by: Oxycodone HCl (Oxycodone 5 Mg Tablet) 5 mg PO Q4HR PRN PRN Reason: Pain 5 to 7 Last Admin: 09/19/21 16:40 Dose: 5 mg Documented by: Pantoprazole Sodium (Pantoprazole 40 Mg Tablet) 40 mg PO QDAC [facility] Last Admin: 09/30/21 06:02 Dose: 40 mg Documented by: Psyllium Hydrophilic Mucilloid (Psyllium Packet) 1 packet PO DAILY PRN PRN Reason: Constipation Last Admin: 09/30/21 14:09 Dose: 1 packet Documented by: Sodium Chloride (Sodium Chloride Flush 0.9% 10 Ml Syringe) 10 ml IVP 0 100,0900,1700 [facility] Last Admin: 09/30/21 09:05 Dose: 40 ml Documented by: Sodium Chloride (Sodium Chloride Flush 0.9% 10 Ml Syringe) 10 ml IVP PRN PRN PRN Reason: NEEDED PER PROVIDER ORDERS Last Admin: 09/30/21 04:10 Dose: 20 ml Documented by: Potassium Chloride [K-Dur] 40 meq PO BID 09/08/21 Diphenoxylate/Atropine [Lomotil] 2.5 mg PO PRN PRN 09/15/21 Objective - Vital Signs/Intake & Output Reviewed Vital Signs: Yes Vital Signs: Vital Signs x48h Temp Pulse Resp BP BP Pulse Ox 09/30/21 13:00 36.2 C L 75 20 103/59 L 100 09/30/21 08:18 36.1 C L 76 20 90/52 L 99 Intake & Output: Intake & Output 09/27/21 09/28/21 09/29/21 09/30/21 23:59 23:59 23:59 23:59 Intake Total 2864.714 3756.667 2067.216 Output Total 0 2775 715 Balance 814.714 224.908 1871.216 - Objective General Appearance: positive: No acute distress, Alert, Other (Sitting up in chair, NG tube in place. None, cachectic, male that looks older than stated age with edema from the waist down from anasarca) Eyes Bilateral: positive: PERRL, EOMI ENT: positive: No signs of dehydration Neck: positive: No JVD. negative: Stiff neck Respiratory: positive: No respiratory distress. negative: Wheezes, Rales, Rhonchi Cardiovascular: positive: Regular rate & rhythm, Systolic murmur. negative: Gallop/S4, Friction rub Abdomen: positive: Non-tender, No organomegaly, Nml bowel sounds, Other (Slightly distended. But overall nontender.). negative: Guarding, Rebound Skin: positive: Warm, Dry, Pallor Extremities: positive: Full ROM, No pedal edema Neurologic/Psychiatric: positive: Oriented x3, CN's nml (2-12). negative: Motor nml (generalized weakness) - Lab Results Fish Bones: 09/30/21 04:10 09/30/21 04:10 Other Labs: Lab Results x24hrs 09/30/21 09/30/21 09/30/21 Range/Units 05:55 04:10 04:10 WBC 3.7 L (4.8-10.8) x10^3/uL RBC 2.43 L (4.70-6.10) 10^6/uL Hgb 8.2 L (14.0-18.0) g/dL Hct 25.1 L (42.0-52.0) % MCV 103.3 H (80.0-94.0) fL MCH 33.7 H (27.0-31.0) pg MCHC 32.7 (32.0-36.0) g/dL RDW 19.5 H (12.0-15.0) % Plt Count 172 (130-450) 10^3/uL MPV 11.3 (7.4-11.4) fL Neut # (Auto) Not Reportable Lymph # (Auto) Not Reportable Meeker # (Auto) Not Reportable Eos # (Auto) Not Reportable Baso # (Auto) Not Reportable Absolute Nucleated RBC Not Reportable Total Counted 100 Band Neuts % (Manual) 16 H (0 - 10) % Abnorm Lymph % (Manual) 0 % Nucleated RBC % Not Reportable Neutrophils # (Manual) 2.7 (1.5-6.6) 10^3/uL Lymphocytes # (Manual) 0.9 L (1.5-3.5) 10^3/uL Monocytes # (Manual) 0.1 (0.0-1.0) 10^3/uL Eosinophils # (Manual) 0.1 (0-0.7) 10^3/uL Basophils # (Manual) 0.0 (0-0.1) 10^3/uL Differential Comment MANUAL DIFFERENTIAL Platelet Estimate NORMAL (130-450,000) (NORMAL) RBC Morph Micro Appear 1+ POLYCHROMASIA (NORMAL) Sodium 142 (135-145) mmol/L Potassium 3.3 L (3.5-5.0) mmol/L Chloride 120 H* (101-111) mmol/L Carbon Dioxide 16 L (21-32) mmol/L Anion Gap 6.0 (6-13) BUN 21 H (6-20) mg/dL Creatinine 0.9 (0.6-1.2) mg/dL Estimated GFR (MDRD) 82 L (>89) Glucose 130 H (70-100) mg/dL POC Whole Bld Glucose 98 (70 - 100) mg/dL Calcium 6.9 L (8.5-10.3) mg/dL Total Bilirubin 0.3 (0.2-1.0) mg/dL Direct Bilirubin 0.1 (0.1-0.5) mg/dL AST 15 (10-42) IU/L ALT 15 (10-60) IU/L Alkaline Phosphatase 53 (42-121) IU/L Total Protein 3.5 L (6.7-8.2) g/dL Albumin 1.0 L (3.2-5.5) g/dL Globulin 2.5 (2.1-4.2) g/dL 09/30/21 09/29/21 09/29/21 Range/Units 00:52 17:44 15:48 WBC (4.8-10.8) x10^3/uL RBC (4.70-6.10) 10^6/uL Hgb (14.0-18.0) g/dL Hct (42.0-52.0) % MCV (80.0-94.0) fL MCH (27.0-31.0) pg MCHC (32.0-36.0) g/dL RDW (12.0-15.0) % Plt Count (130-450) 10^3/uL MPV (7.4-11.4) fL Neut # (Auto) Lymph # (Auto) Meeker # (Auto) Eos # (Auto) Baso # (Auto) Absolute Nucleated RBC Total Counted Band Neuts % (Manual) (0 - 10) % Abnorm Lymph % (Manual) % Nucleated RBC % Neutrophils # (Manual) (1.5-6.6) 10^3/uL Lymphocytes # (Manual) (1.5-3.5) 10^3/uL Monocytes # (Manual) (0.0-1.0) 10^3/uL Eosinophils # (Manual) (0-0.7) 10^3/uL Basophils # (Manual) (0-0.1) 10^3/uL Differential Comment Platelet Estimate (NORMAL) RBC Morph Micro Appear (NORMAL) Sodium (135-145) mmol/L Potassium 2.8 L (3.5-5.0) mmol/L Chloride (101-111) mmol/L Carbon Dioxide (21-32) mmol/L Anion Gap (6-13) BUN (6-20) mg/dL Creatinine (0.6-1.2) mg/dL Estimated GFR (MDRD) (>89) Glucose (70-100) mg/dL POC Whole Bld Glucose 103 H 120 H (70 - 100) mg/dL Calcium (8.5-10.3) mg/dL Total Bilirubin (0.2-1.0) mg/dL Direct Bilirubin (0.1-0.5) mg/dL AST (10-42) IU/L ALT (10-60) IU/L Alkaline Phosphatase (42-121) IU/L Total Protein (6.7-8.2) g/dL Albumin (3.2-5.5) g/dL Globulin (2.1-4.2) g/dL ABX Reporting Has patient been on IV antibiotics over the past 48 hours?: Yes Assessment/Plan - Problem List (1) Adynamic ileus Impression: Repeat abdomen CT 09/27 showed worsening dilated loops of small bowel consistent with an infectious or inflammatory process when compared to 09/18 CT. Abdominal x-ray 09/28 also showed abnormally dilated loops of small bowel measuring up to 5.7cm. These findings are consistent with 09/27 CT and are more prominent than 09/22 plain film. NG tube was placed once again 09/28 and he has been made NPO Interestingly enough, he still has had 3-4 bowel movements each day. Stool is green and gelatinous. We will keep him on Zosyn IV for suspected neutropenic colitis. TPN restarted 09/28. C. diff test 09/28 negative. The patient is understandably depressed about all of this. He is questioning whether he will move forward with more chemotherapy if this is a result. But he is in good spirits. Trying to stay positive and has the nurses getting YouTube channels on for him so he can listen to music in background noise. He is also giving us ideas for how to make the patient experience better. For the time being, we are in a holding pattern. Waiting for this poor man's colitis to resolve. (2) Neutropenic colitis Impression: 09/27 CT continues to show inflammatory changes. He continues to have diarrhea but he is afebrile. His abdominal pain has improved overall and is stable. Worse cramping with BM. We will continue him on Zosyn IV. C. diff test 09/28 negative. Continue NPO status for the time being. TPN for nutrition. His Hgb on 09/18 was 16.8. Today it is 8.2. We did discuss transferring to higher-level care but he prefers to hold off on this for the time being. (3) Hypotension Impression: He is still hypotensive with systolics in the 90s. Sometimes up to 109 systolic today. There is currently no evidence of hypoperfusion. Lactic acid was normal and his renal function is stable as well as urine output. We are holding diltiazem. We will hold off on further IV hydration as he is quite edematous and has received multiple liters of IV fluids. If his blood pressure drops further then he may need norepinephrine. (4) Hypoglycemia, resolved Impression: This was secondary to lack of oral intake. He has since been on D5 half-normal and will now be on TPN once again. Blood glucose 101 > 132 > 127>130 (5) Acidosis, hyperchloremic with hypokalemia Impression: pH 7.242, Cl elevated at 118. CO2 is 16. This is likely due to his TPN. VBG tomorrow am will be ordered. Yesterday we gave him an 80 mEq rider. This was on top of the 80 mEq that was already in his TPN. Yesterday I increased his TPN potassium from 80 to 120 mEq and it started last night. This morning potassium is still 3.3. Will discuss with pharmacy about the hyperchloremia and increase his TPN potassium 160 mEq in a bag (6) Chemotherapy induced neutropenia Impression: WBC count 09/18 was 2.0 and dropped to 1.3. On 09/23 it increased to 12.0. It has since dropped to 3.8. He remains on IV antibiotics for suspected neutropenic colitis. (7) Hypernatremia Impression: This has resolved. This was secondary to decreased oral intake and resuscitation with normal saline. (8) SVT (supraventricular tachycardia) Impression: This was initially treated with a diltiazem drip and IV digoxin. He was sent switched to oral Cardizem but due to hypotension, we have held this. We will continue to monitor on telemetry and resume diltiazem when appropriate. (9) Adenocarcinoma of rectum, stage 3 Impression: He was diagnosed earlier this year and is currently seeking treatment with FOL[facility]X. He will continue outpatient follow-up with his oncologist once discharged. (10) Acute kidney injury Impression: His creatinine has been slightly increased at 1.3, which I suspect may be due to ATN secondary to the hypotension. Today he is 0.9. His urine output has remained adequate. We will continue to monitor for the time being but will hold off on further hydration given he is so edematous and has received multiple liters of IV fluids.
[2021-09-30] MEDS: ACETAMINOPHEN 325 MG TABLET PO PRN ×2 (16:39→17:23)
[2021-09-30] MEDS: PHOSPHO IV SCH (19:09)
[2021-09-30] MEDS: OLIVE IV SCH (19:09)
[2021-09-30] MEDS: FAT EMULSION IV SCH (19:09)
[2021-09-30] MEDS: SOY IV SCH (19:09)
[2021-09-30] MEDS: TPN (CLINIMIX E 5/15) 2,000 ML with MULTIVITAMIN 10 ML, TRACE ELEMENTS 1 ML, POTASSIUM ... IV SCH ×4 (19:10)
[2021-10-01] MEDS: SODIUM CHLORIDE FLUSH 0.9% 10 ML SYRINGE IVP SCH ×4 (00:05→23:58)
[2021-10-01] MEDS: ACETAMINOPHEN 325 MG TABLET PO PRN (02:19)
[2021-10-01] MEDS: PIPERACILLIN/TAZOBACTAM 4.5 GM in SODIUM CHLORIDE 0.9% MINIBAG 100 ML IV SCH ×3 (03:45→19:58)
[2021-10-01] MEDS: PANTOPRAZOLE 40 MG TABLET PO SCH (06:13)
[2021-10-01 06:31] LABS: BASOPHILS % (AUTO) 0.6 %; EOSINOPHILS # (AUTO) 0.1 10^3/uL (0.0-0.7); EOSINOPHILS % (AUTO) 1.7 %; HCT - HEMATOCRIT 29.2 % (42.0-52.0); HGB - HEMOGLOBIN 9.3 g/dL (14.0-18.0); LYMPHOCYTES # (AUTO) 0.9 10^3/uL (1.5-3.5); LYMPHOCYTES % (AUTO) 19.4 %; MEAN CORPUSCULAR HEMOGLOBIN 32.6 pg (27.0-31.0); MEAN CORPUSCULAR HGB CONC 31.8 g/dL (32.0-36.0); MEAN CORPUSCULAR VOLUME 102.5 fL (80.0-94.0); MEAN PLATELET VOLUME 10.5 fL (7.4-11.4); MONOCYTES # (AUTO) 0.3 10^3/uL (0.0-1.0); MONOCYTES % (AUTO) 5.4 %; NEUTROPHILS # (AUTO) 3.4 10^3/uL (1.5-6.6); NEUTROPHILS % (AUTO) 69.8 %; NRBC ABSOLUTE COUNT (AUTO) 0.02 x10^3/uL; NUCLEATED RED BLOOD CELLS AUTO 0.4 /100WBC; PLT - PLATELET COUNT 218 10^3/uL (130-450); RED BLOOD COUNT 2.85 10^6/uL (4.70-6.10); WHITE BLOOD COUNT 4.8 x10^3/uL (4.8-10.8)
[2021-10-01 06:47] LABS: ALBUMIN 1.1 g/dL (3.2-5.5); BILIRUBIN,DIRECT 0.1 mg/dL (0.1-0.5); BILIRUBIN,TOTAL 0.4 mg/dL (0.2-1.0); CALCIUM 7.1 mg/dL (8.5-10.3); CREATININE 0.8 mg/dL (0.6-1.2); POTASSIUM 3.6 mmol/L (3.5-5.0); TOTAL PROTEIN 3.8 g/dL (6.7-8.2)
[2021-10-01] MEDS: ENOXAPARIN 40 MG/0.4 ML SYRINGE SUBQ SCH (08:40)
[2021-10-01] MEDS: TAMSULOSIN 0.4 MG CAPSULE PO SCH (08:40)
[2021-10-01] MEDS: diltiaZEM CD 120 MG CAPSULE PO SCH (08:44)
--- NOTE | 2021-10-01 11:24 | XRAY Report ---
PROCEDURE: Abdomen 1 View X-Ray INDICATIONS: sudden mid abd pain, radi to back TECHNIQUE: 1 view of the abdomen were acquired. COMPARISON: 09/28/2021 FINDINGS: Surgical changes and devices: Surgical clips are seen in gallbladder fossa.. Bowel: No pneumoperitoneum. The bowel gas pattern is normal. Soft tissues: No masses; visualized solid organ contours appear normal in size. No suspicious abdom inal calcifications. Bones: No suspicious bony abnormalities. Degenerative disc disease throughout lumbar spine is seen. IMPRESSION: 1. No bowel obstruction or gross free air. No gross renal calcifications. 2. Mild degenerative disc disease throughout lumbar spine more prominent at L4-5 and L5-S1 levels. No gross acute compression fracture. Reviewed by: Arias Allen MD on 10/01/2021 11:22 AM [facility] Approved by: Arias Allen MD on 10/01/2021 11:22 AM [facility] Station ID: [id number]
[2021-10-01] MEDS: ACETAMINOPHEN 160 MG/5 ML SUSP UDC PO PRN ×4 (11:36→23:58)
--- NOTE | 2021-10-01 14:22 | PROVIDER PROGRESS NOTE ---
Subjective - Prog Note Date Prog Note Date: 10/01/21 Prog Note Time: 14:18 - Subjective Pt reports feeling: Improved Subjective: Maikel looks that best he has looked throughout his entire stay here. He reports he is feeling better and has a smile on his face saying he is "happy to see me." He got to take a few sips of root beer last night and enjoyed the treat. He also has some flavored water that he is excited to try. He is saving it for his son's visit later today. He is enjoying background sounds of tropical rainforest. He d oes not have much motivation to get up and out of bed. He states "I know I could if I wanted to." We reminded him that it is important for him to get up each day so he does not lose strength and that we will need to see this from him. His diarrhea is improving; he only had one episode this morning. He also informed us last night that he has a history of BPH. Dr. Hopkinssef started him on Flomax and valles d a catheter placed. Maikel says his is feeling so much beter after this. His potassium has been persistently low for a week now. As low as 2.9 on 09/29. 80 mEq of potassium was added to his TPN yesterday for a total of 160 mEq. Most recent level is 3.6. Today around 11am, Maikel complained of abdominal pain and asked a nurse to check his vitals. They were completely normal and actually improved from earlier today so he requested to talk to Dr. Medina. When we went in the room, he complained of abdominal pain that he had difficulty describing. His pain started about 2-3 days ago and was rather mild. Today, it suddenly became worse and different than before. He has to lay a bit off-center to be comfortable. He insists that he does not want any morphine. He is currently being given Tylenol for his pain and has asked twice when his next dose is. He quantifies his pain as 4 out of 10. He says that this pain spreads to his back, but his back pain has been present for many years. We will order an abdominal x-ray. Objective - Vital Signs/Intake & Output Reviewed Vital Signs: Yes Vital Signs: Vital Signs x48h Temp Pulse Resp BP Pulse Ox 10/01/21 12:41 36.2 C L 84 20 105/52 L 100 10/01/21 08:36 79 97/53 L 10/01/21 07:44 36.3 C L 81 21 112/56 L 100 Intake & Output: Intake & Output 09/28/21 09/29/21 09/30/21 10/01/21 23:59 23:59 23:59 23:59 Intake Total 2864.714 3756.667 3776.083 510 Output Total 5540 4565 3015 1125 Balance 814.714 981.667 761.083 -615 - Objective General Appearance: positive: No acute distress, Alert, Other (Laying bed, NG tube in place. Edematous from the waist down from anasarca) Eyes Bilateral: positive: Normal inspection, PERRL, EOMI ENT: positive: ENT inspection nml Neck: positive: No JVD. negative: Stiff neck Respiratory: positive: Chest non-tender, No respiratory distress. negative: Wheezes, Rales, Rhonchi Cardiovascular: positive: Regular rate & rhythm, No murmur, No gallop. negative: Friction rub Abdomen: positive: Tenderness (Diffuse, more tender suprapubic), Other (Mild distension). negative: Guarding, Rebound Skin: positive: No rash, Warm, Dry Extremities: positive: No pedal edema Neurologic/Psychiatric: positive: Oriented x3, CN's nml (2-12), Weakness - Lab Results Fish Bones: 10/01/21 06:20 10/01/21 06:20 Other Labs: Lab Results x24hrs 10/01/21 10/01/21 10/01/21 Range/Units : 06:20 06:20 WBC 4.8 (4.8-10.8) x10^3/uL RBC 2.85 L (4.70-6.10) 10^6/uL Hgb 9.3 L (14.0-18.0) g/dL Hct 29.2 L (42.0-52.0) % MCV 102.5 H (80.0-94.0) fL MCH 32.6 H (27.0-31.0) pg MCHC 31.8 L (32.0-36.0) g/dL RDW 19.0 H (12.0-15.0) % Plt Count 218 (130-450) 10^3/uL MPV 10.5 (7.4-11.4) fL Neut # (Auto) 3.4 (1.5-6.6) 10^3/uL Lymph # (Auto) 0.9 L (1.5-3.5) 10^3/uL Roosevelt # (Auto) 0.3 (0.0-1.0) 10^3/uL Eos # (Auto) 0.1 (0.0-0.7) 10^3/uL Baso # (Auto) 0.0 (0.0-0.1) 10^3/uL Absolute Nucleated RBC 0.02 x10^3/uL Nucleated RBC % 0.4 /100WBC Sodium 140 (135-145) mmol/L Potassium 3.6 (3.5-5.0) mmol/L Chloride 117 H (101-111) mmol/L Carbon Dioxide 17 L (21-32) mmol/L Anion Gap 6.0 (6-13) BUN 19 (6-20) mg/dL Creatinine 0.8 (0.6-1.2) mg/dL Estimated GFR (MDRD) 94 (>89) Glucose 94 (70-100) mg/dL POC Whole Bld Glucose 106 H (70 - 100) mg/dL Calcium 7.1 L (8.5-10.3) mg/dL Total Bilirubin 0.4 (0.2-1.0) mg/dL Direct Bilirubin 0.1 (0.1-0.5) mg/dL AST 21 (10-42) IU/L ALT 18 (10-60) IU/L Alkaline Phosphatase 66 (42-121) IU/L Total Protein 3.8 L (6.7-8.2) g/dL Albumin 1.1 L (3.2-5.5) g/dL Globulin 2.7 (2.1-4.2) g/dL 10/01/21 09/30/21 Range/Units 00:05 18:09 WBC (4.8-10.8) x10^3/uL RBC (4.70-6.10) 10^6/uL Hgb (14.0-18.0) g/dL Hct (42.0-52.0) % MCV (80.0-94.0) fL MCH (27.0-31.0) pg MCHC (32.0-36.0) g/dL RDW (12.0-15.0) % Plt Count (130-450) 10^3/uL MPV (7.4-11.4) fL Neut # (Auto) (1.5-6.6) 10^3/uL Lymph # (Auto) (1.5-3.5) 10^3/uL Roosevelt # (Auto) (0.0-1.0) 10^3/uL Eos # (Auto) (0.0-0.7) 10^3/uL Baso # (Auto) (0.0-0.1) 10^3/uL Absolute Nucleated RBC x10^3/uL Nucleated RBC % /100WBC Sodium (135-145) mmol/L Potassium (3.5-5.0) mmol/L Chloride (101-111) mmol/L Carbon Dioxide (21-32) mmol/L Anion Gap (6-13) BUN (6-20) mg/dL Creatinine (0.6-1.2) mg/dL Estimated GFR (MDRD) (>89) Glucose (70-100) mg/dL POC Whole Bld Glucose 100 109 H (70 - 100) mg/dL Calcium (8.5-10.3) mg/dL Total Bilirubin (0.2-1.0) mg/dL Direct Bilirubin (0.1-0.5) mg/dL AST (10-42) IU/L ALT (10-60) IU/L Alkaline Phosphatase (42-121) IU/L Total Protein (6.7-8.2) g/dL Albumin (3.2-5.5) g/dL Globulin (2.1-4.2) g/dL Assessment/Plan - Problem List (1) Adynamic ileus Impression: Impression: 09/27 CT continues to show inflammatory changes. He continues to have diarrhea but he is afebrile. His abdominal pain has improved overall and is stable. Worse cramping with BM. We will continue him on Zosyn IV. C. diff test 09/28 negative. Continue NPO status for the time being. TPN for nutrition. His Hgb on 09/18 was 16.8, yesterday was 8.2, today is 9.3. We did discuss transferring to higher-level care but he prefers to hold off on this for the time being. (3) Hypotension Impression: He is still hypotensive with systolics in the 90s. Sometimes up to 112 systolic today. There is currently no evidence of hypoperfusion. Lactic acid was normal and his renal function is stable as well as urine output. We are holding diltiazem. We will hold off on further IV hydration as he is quite edematous and has received multiple liters of IV fluids. If his blood pressure drops further then he may need norepinephrine. (4) Hypoglycemia, resolved Impression: This was secondary to lack of oral intake. He has since been on D5 half-normal and will now be on TPN once again. Blood glucose 109 > 100 > 106. (5) Acidosis, hyperchloremic with hypokalemia Impression: pH 7.242, Cl elevated at 118. CO2 is 16. This is likely due to his TPN. Will order VBG. He has received supplemental potassium in his TPN over the last few days. Yesterday, his potassium was 3.3 after 120 mEq potassium was added. Pharmacy agreed to increase to 160 mEq in his TPN bag today. Most recent level is 3.6. (6) Chemotherapy induced neutropenia Impression: WBC count 09/18 was 2.0 and dropped to 1.3. On 09/23 it increased to 12.0 then dropped to 3.8. Today it is 4.8. He remains on IV antibiotics for suspected neutropenic colitis. (7) Hypernatremia Impression: This has resolved. This was secondary to decreased oral intake and resuscitation with normal saline. (8) SVT (supraventricular tachycardia) Impression: This was initially treated with a diltiazem drip and IV digoxin. He was sent switched to oral Cardizem but due to hypotension, we have held this. We will continue to monitor on telemetry and resume diltiazem when appropriate. (9) Adenocarcinoma of rectum, stage 3 Impression: He was diagnosed earlier this year and is currently seeking treatment with [facility]. He will continue outpatient follow-up with his oncologist once discharged. (10) Acute kidney injury Impression: His creatinine has been slightly increased at 1.3, which I suspect may be due to ATN secondary to the hypotension. Today he is 0.9. His urine output has remained adequate. We will continue to monitor for the time being but will hold off on further hydration given he is so edematous and has received multiple liters of IV fluids. (11) Abdominal pain Impression: New onset of sudden abdominal pain today around 11am. He also complained of back pain. Vitals were reassuring. Abdomen was lightly distended and tender. X-ray shows no bowel obstruction or gross free air; no renal calcification. Mild degen erative disc disease was also seen on x-ray, consistent with his back pain.
[2021-10-01 15:42] LABS: VBG BASE EXCESS -5.9 mmol/L (-2 - +2); VBG HCO3 14.8 mmol/L (23-28); VBG OXYGEN SATURATION 91.6 % (60-80); VBG PCO2 18.3 mmHg (41-51); VBG PH 7.526 (7.31-7.41); VBG PO2 52.7 mmHg (25-47); VBG TOTAL CO2 15.4 mmol/L (24-29)
[2021-10-01] MEDS: TPN (CLINIMIX E 5/15) 2,000 ML with MULTIVITAMIN 10 ML, TRACE ELEMENTS 1 ML, POTASSIUM ... IV SCH ×4 (18:56)
[2021-10-01] MEDS: PHOSPHO IV SCH (18:57)
[2021-10-01] MEDS: FAT EMULSION IV SCH (18:57)
[2021-10-01] MEDS: SODIUM CHLORIDE 0.9% 500 ML IV PRN (18:57)
[2021-10-01] MEDS: SOY IV SCH (18:57)
[2021-10-01] MEDS: OLIVE IV SCH (18:57)
[2021-10-02] MEDS: ACETAMINOPHEN 160 MG/5 ML SUSP UDC PO PRN ×3 (04:08→13:20)
[2021-10-02] MEDS: PIPERACILLIN/TAZOBACTAM 4.5 GM in SODIUM CHLORIDE 0.9% MINIBAG 100 ML IV SCH ×3 (04:08→20:05)
[2021-10-02] MEDS: PANTOPRAZOLE 40 MG TABLET PO SCH (05:59)
[2021-10-02 06:20] LABS: BASOPHILS % (AUTO) 0.6 %; HCT - HEMATOCRIT 27.1 % (42.0-52.0); HGB - HEMOGLOBIN 8.7 g/dL (14.0-18.0); LYMPHOCYTES % (AUTO) 12.1 %; MEAN CORPUSCULAR HEMOGLOBIN 33.3 pg (27.0-31.0); MEAN CORPUSCULAR HGB CONC 32.1 g/dL (32.0-36.0); MEAN CORPUSCULAR VOLUME 103.8 fL (80.0-94.0); MEAN PLATELET VOLUME 10.3 fL (7.4-11.4); MONOCYTES % (AUTO) 5.5 %; NEUTROPHILS % (AUTO) 78.4 %; PLT - PLATELET COUNT 185 10^3/uL (130-450); RED BLOOD COUNT 2.61 10^6/uL (4.70-6.10); RED CELL DISTRIBUTION WIDTH 19.1 % (12.0-15.0); WHITE BLOOD COUNT 6.7 x10^3/uL (4.8-10.8)
[2021-10-02 06:23] LABS: ABNORMAL LYMPHS % (MANUAL) 0 %
[2021-10-02 06:35] LABS: ALBUMIN/GLOBULIN RATIO 0.4 (1.0-2.2); BILIRUBIN,DIRECT 0.2 mg/dL (0.1-0.5); BILIRUBIN,TOTAL 0.2 mg/dL (0.2-1.0); CREATININE 0.8 mg/dL (0.6-1.2); MAGNESIUM 1.9 mg/dL (1.7-2.8); PHOSPHORUS 2.8 mg/dL (2.5-4.6); POTASSIUM 3.6 mmol/L (3.5-5.0); TOTAL PROTEIN 3.7 g/dL (6.7-8.2)
[2021-10-02 07:26] LABS: BAND NEUTROPHILS % (MANUAL) 5 %; BASOPHILS # (MANUAL) 0.1 10^3/uL (0-0.1); BASOPHILS % (MANUAL) 1 %; LYMPHOCYTES # (MANUAL) 0.5 10^3/uL (1.5-3.5); LYMPHOCYTES % (MANUAL) 7 %; MONOCYTES # (MANUAL) 0.3 10^3/uL (0.0-1.0); NEUTROPHILS # (MANUAL) 5.8 10^3/uL (1.5-6.6)
[2021-10-02 07:27] LABS: DIFFERENTIAL COMMENT MANUAL DIFFERENTIAL; PLATELET ESTIMATE, MANUAL NORMAL (130-450,000) (NORMAL); PLATELET MORPHOLOGY NORMAL APPEARANCE (NORMAL); WBC MORPHOLOGY (MULTIPLE) NORMAL APPEARANCE (NORMAL)
[2021-10-02] MEDS: TAMSULOSIN 0.4 MG CAPSULE PO SCH (09:13)
[2021-10-02] MEDS: diltiaZEM CD 120 MG CAPSULE PO SCH (09:13)
[2021-10-02] MEDS: SODIUM CHLORIDE FLUSH 0.9% 10 ML SYRINGE IVP SCH ×3 (09:14→23:36)
[2021-10-02] MEDS: ENOXAPARIN 40 MG/0.4 ML SYRINGE SUBQ SCH (09:14)
--- NOTE | 2021-10-02 09:14 | PROVIDER PROGRESS NOTE ---
Subjective - Prog Note Date Prog Note Date: 10/02/21 Prog Note Time: 09:06 - Subjective Subjective: The patient says that he feels pretty good this morning. He had 2-3 gelatinous bowel movements yesterday that are green and slimy. No abdominal pain. 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 NG output has gone down to 200 cc in the last shift. Nursing is clamping and giving him his meds, and then unclamping. So far this morning he has not had any output. Current Medications - Current Medications Current Medications: Active Medications Acetaminophen (Acetaminophen 160 Mg/5 Ml Susp Udc) 640 mg PO Q4HR PRN PRN Reason: Pain 1 to 4 Last Admin: 10/02/21 09:12 Dose: 640 mg Documented by: Al Hydroxide/Mg Hydroxide (Mag Hydrox/Al Hydrox/Simeth 30 Ml Udc) 30 ml PO Q4HR PRN PRN Reason: INDIGESTION Last Admin: 09/22/21 21:00 Dose: 30 ml Documented by: Diltiazem HCl (Diltiazem Cd 120 Mg Capsule) 120 mg PO DAILY [facility] Last Admin: 10/02/21 09:13 Dose: 120 mg Documented by: Enoxaparin Sodium (Enoxaparin 40 Mg/0.4 Ml Syringe) 40 mg SUBQ DAILY [facility] Last Admin: 10/02/21 09:14 Dose: 40 mg Documented by: Heparin Sodium (Beef Lung) (Heparin Flush 50 Units/5 Ml Syringe) 30 - 50 unit 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 PRN PRN Reason: Port Protocol (<24 hours) Last Admin: 09/27/21 04:13 Dose: 50 unit Documented by: Piperacillin Sod/Tazobactam (Sod 4.5 gm/ Sodium Chloride) 100 mls @ 25 mls/hr IV Q8H [facility] Last Infusion: 10/02/21 08:45 Dose: Infused Documented by: FAT EMULSION/OLIVE/SOY/PHOSPHO (Clinolipid 20% Iv Fat Emulsion) 50 gm in 250 mls @ 21 mls/hr IV 1900 [facility] Last Infusion: 10/02/21 07:30 Dose: Infused Documented by: Sodium Chloride (Normal Saline 0.9%) 500 mls @ 20 mls/hr IV Q24H PRN PRN Reason: TKO RATE Last Admin: 10/01/21 18:57 Dose: 20 mls/hr Documented by: Multivitamins 10 ml/ TRACE ELEMENTS 1 ml/ Potassium Chloride 80 meq/ Amino Ac/Electrol/Dextrose/Calcium 2,051 mls @ 83 mls/hr IV TPN/PPN [facility] Last Admin: 10/01/21 18:56 Dose: 83 mls/hr Documented by: Mineral Oil (Min Oil/Dimethicon/Coconut Oil 92 Gm Tube) 1 applic TOP PRN PRN PRN Reason: Skin Care Last Admin: 09/30/21 04:51 Dose: 1 applic Documented by: Morphine Sulfate (Morphine 2 Mg/Ml Carpuject) 2 mg IVP Q2HR PRN PRN Reason: Pain 8 to 10 Last Admin: 09/27/21 17:57 Dose: 2 mg Documented by: Multi-Ingredient Ointment (Zinc Oxide 20% Oint 30 Gm Tube) 1 applic TOP PRN PRN PRN Reason: Skin Care Ondansetron HCl (Ondansetron Odt 4 Mg Tablet) 4 mg TL Q6HR PRN PRN Reason: Nausea / Vomiting Ondansetron HCl (Ondansetron 4 Mg/2 Ml Vial) 4 mg IVP Q4HR PRN PRN Reason: Nausea / Vomiting Last Admin: 09/27/21 23:39 Dose: 4 mg Documented by: Oxycodone HCl (Oxycodone 5 Mg Tablet) 5 mg PO Q4HR PRN PRN Reason: Pain 5 to 7 Last Admin: 09/19/21 16:40 Dose: 5 mg Documented by: Pantoprazole Sodium (Pantoprazole 40 Mg Tablet) 40 mg PO QDAC [facility] Last Admin: 10/02/21 05:59 Dose: 40 mg Documented by: Psyllium Hydrophilic Mucilloid (Psyllium Packet) 1 packet PO DAILY PRN PRN Reason: Constipation Last Admin: 09/30/21 14:09 Dose: 1 packet Documented by: Sodium Chloride (Sodium Chloride Flush 0.9% 10 Ml Syringe) 10 ml IVP 0100,0900,1700 [facility] Last Admin: 10/02/21 09:14 Dose: 10 ml Documented by: Sodium Chloride (Sodium Chloride Flush 0.9% 10 Ml Syringe) 10 ml IVP PRN PRN PRN Reason: NEEDED PER PROVIDER ORDERS Last Admin: 09/30/21 04:10 Dose: 20 ml Documented by: Tamsulosin HCl (Tamsulosin 0.4 Mg Capsule) 0.4 mg PO DAILY [facility] Last Admin: 10/02/21 09:13 Dose: 0.4 mg Documented by: Potassium Chloride [K-Dur] 40 meq PO BID 09/08/21 Diphenoxylate/Atropine [Lomotil] 2.5 mg PO PRN PRN 09/15/21 Objective - Vital Signs/Intake & Output Reviewed Vital Signs: Yes Vital Signs: Vital Signs x48h Temp Pulse Resp BP Pulse Ox 10/02/21 08:19 36.2 C L 82 22 113/52 L 99 10/02/21 04:14 36.3 C L 89 20 96/50 L 100 Intake & Output: Intake & Output 09/29/21 09/30/21 10/01/21 10/02/21 23:59 23:59 23:59 23:59 Intake Total 3756.667 3776.083 2604 420 Output Total 2775 3015 1625 650 Balance 981.667 761.083 979 -230 - Objective General Appearance: positive: Alert, Other (fatigued appearing, but states he's feeling better. Cachectic.) Eyes Bilateral: positive: PERRL, EOMI ENT: positive: Other (right nares NG) Neck: positive: No JVD. negative: Stiff neck Respiratory: positive: No respiratory distress. negative: Wheezes, Rales, Rhonchi Cardiovascular: positive: Regular rate & rhythm. negative: Gallop/S4, Friction rub Abdomen: positive: Non-tender, No organomegaly, Nml bowel sounds, Other (softly distened, pliable, no pain) Skin: positive: Warm, Dry, Pallor Extremities: positive: Full ROM, No pedal edema Neurologic/Psychiatric: positive: Oriented x3, CN's nml (2-12), Motor nml (but moderately weak) - Lab Results Fish Bones: 10/02/21 06:10 10/02/21 06:10 Other Labs: Lab Results x24hrs 10/02/21 10/02/21 10/02/21 Range/Units 06:10 06:10 00:07 WBC 6.7 (4.8-10.8) x10^3/uL RBC 2.61 L (4.70-6.10) 10^6/uL Hgb 8.7 L (14.0-18.0) g/dL Hct 27.1 L (42.0-52.0) % MCV 103.8 H (80.0-94.0) fL MCH 33.3 H (27.0-31.0) pg MCHC 32.1 (32.0-36.0) g/dL RDW 19.1 H (12.0-15.0) % Plt Count 185 (130-450) 10^3/uL MPV 10.3 (7.4-11.4) fL Neut # (Auto) Not Reportable Lymph # (Auto) Not Reportable [place] # (Auto) Not Reportable Eos # (Auto) Not Reportable Baso # (Auto) Not Reportable Absolute Nucleated RBC Not Reportable Total Counted 100 Band Neuts % (Manual) 5 (0 - 10) % Abnorm Lymph % (Manual) 0 % Nucleated RBC % Not Reportable Neutrophils # (Manual) 5.8 (1.5-6.6) 10^3/uL Lymphocytes # (Manual) 0.5 L (1.5-3.5) 10^3/uL Monocytes # (Manual) 0.3 (0.0-1.0) 10^3/uL Eosinophils # (Manual) 0.0 (0-0.7) 10^3/uL Basophils # (Manual) 0.1 (0-0.1) 10^3/uL Differential Comment MANUAL DIFFERENTIAL WBC Morphology NORMAL APPEARANCE (NORMAL) Platelet Estimate NORMAL (130-450,000) (NORMAL) Platelet Morphology NORMAL APPEARANCE (NORMAL) RBC Morph Micro Appear 1+ MACROCYTOSIS (NORMAL) VBG pH (7.31-7.41) VBG pCO2 (41-51) mmHg VBG pO2 (25-47) mmHg VBG HCO3 (23-28) mmol/L VBG Total CO2 (24-29) mmol/L VBG O2 Saturation (60-80) % VBG Base Excess (-2 - +2) mmol/L Sodium 139 (135-145) mmol/L Potassium 3.6 (3.5-5.0) mmol/L Chloride 116 H (101-111) mmol/L Carbon Dioxide 17 L (21-32) mmol/L Anion Gap 6.0 (6-13) BUN 22 H (6-20) mg/dL Creatinine 0.8 (0.6-1.2) mg/dL Estimated GFR (MDRD) 94 (>89) Glucose 117 H (70-100) mg/dL POC Whole Bld Glucose 121 H (70 - 100) mg/dL Calcium 7.0 L (8.5-10.3) mg/dL Phosphorus 2.8 (2.5-4.6) mg/dL Magnesium 1.9 (1.7-2.8) mg/dL Total Bilirubin 0.2 (0.2-1.0) mg/dL Direct Bilirubin 0.2 (0.1-0.5) mg/dL AST 16 (10-42) IU/L ALT 16 (10-60) IU/L Alkaline Phosphatase 58 (42-121) IU/L Total Protein 3.7 L (6.7-8.2) g/dL Albumin 1.0 L (3.2-5.5) g/dL Globulin 2.7 (2.1-4.2) g/dL Albumin/Globulin Ratio 0.4 L (1.0-2.2) Prealbumin 10 L (18-45) mg/dL Triglycerides 172 H ( - 149) mg/dL 10/01/21 10/01/21 10/01/21 Range/Units 17:48 15:36 11:21 WBC (4.8-10.8) x10^3/uL RBC (4.70-6.10) 10^6/uL Hgb (14.0-18.0) g/dL Hct (42.0-52.0) % MCV (80.0-94.0) fL MCH (27.0-31.0) pg MCHC (32.0-36.0) g/dL RDW (12.0-15.0) % Plt Count (130-450) 10^3/uL MPV (7.4-11.4) fL Neut # (Auto) Lymph # (Auto) [place] # (Auto) Eos # (Auto) Baso # (Auto) Absolute Nucleated RBC Total Counted Band Neuts % (Manual) (0 - 10) % Abnorm Lymph % (Manual) % Nucleated RBC % Neutrophils # (Manual) (1.5-6.6) 10^3/uL Lymphocytes # (Manual) (1.5-3.5) 10^3/uL Monocytes # (Manual) (0.0-1.0) 10^3/uL Eosinophils # (Manual) (0-0.7) 10^3/uL Basophils # (Manual) (0-0.1) 10^3/uL Differential Comment WBC Morphology (NORMAL) Platelet Estimate (NORMAL) Platelet Morphology (NORMAL) RBC Morph Micro Appear (NORMAL) VBG pH 7.526 H (7.31-7.41) VBG pCO2 18.3 L (41-51) mmHg VBG pO2 52.7 H (25-47) mmHg VBG HCO3 14.8 L (23-28) mmol/L VBG Total CO2 15.4 L (24-29) mmol/L VBG O2 Saturation 91.6 H (60-80) % VBG Base Excess -5.9 L (-2 - +2) mmol/L Sodium (135-145) mmol/L Potassium (3.5-5.0) mmol/L Chloride (101-111) mmol/L Carbon Dioxide (21-32) mmol/L Anion Gap (6-13) BUN (6-20) mg/dL Creatinine (0.6-1.2) mg/dL Estimated GFR (MDRD) (>89) Glucose (70-100) mg/dL POC Whole Bld Glucose 128 H 106 H (70 - 100) mg/dL Calcium (8.5-10.3) mg/dL Phosphorus (2.5-4.6) mg/dL Magnesium (1.7-2.8) mg/dL Total Bilirubin (0.2-1.0) mg/dL Direct Bilirubin (0.1-0.5) mg/dL AST (10-42) IU/L ALT (10-60) IU/L Alkaline Phosphatase (42-121) IU/L Total Protein (6.7-8.2) g/dL Albumin (3.2-5.5) g/dL Globulin (2.1-4.2) g/dL Albumin/Globulin Ratio (1.0-2.2) Prealbumin (18-45) mg/dL Triglycerides ( - 149) mg/dL ABX Reporting Has patient been on IV antibiotics over the past 48 hours?: Yes Assessment/Plan - Problem List (1) Adynamic ileus Impression: Repeat abdomen CT 09/27 showed worsening dilated loops of small bowel consistent with an infectious or inflammatory process when compared to 09/18 CT. Abdominal x-ray 09/28 also showed abnormally dilated loops of small bowel measuring up to 5.7cm. These findings are consistent with 09/27 CT and are more prominent than 09/22 plain film. NG tube was placed once again 09/28 and he has been made NPO Interestingly enough, he still has had 3-4 bowel movements each day. Stool is green and gelatinous. We will keep him on Zosyn IV for suspected neutropenic colitis. TPN restarted 09/28. C. diff test 09/28 negative. The patient is understandably depressed about all of this. He is questioning whether he will move forward with more chemotherapy if this is a result. But he is in good spirits. Trying to stay positive and has the nurses getting YouTube channels on for him so he can listen to music in background noise. He is also giving us ideas for how to make the patient experience better. He had increased distension and discomfort 10/01 and I repeated plain film. No free air. The same. And he felt better by late morning. I did pass on that his son thinks he may need to be transferred. Mr. Rodriguez said no. Plan: Keep NG clamped. Start Clear liquids. If tolerates, pull NG (this will be attempt #3) (2) Neutropenic colitis Impression: 09/27 CT continues to show inflammatory changes. He continues to have green gelantinous diarrhea but he is afebrile. His abdominal pain has improved overall and is stable. Worse cramping when he has a BM. We will continue him on Zosyn IV. Started 09/27. WBC was elevated and now normal for 48 hours. C. diff test 09/28 negative. TPN for nutrition. Will start clear liquids today again. (3) Chronic anemia due to nutritional deficiency and dilution His Hgb on 09/18 was 16.8. Today it is 8.7. Stable. No transfusions needed. We will monitor for that. (4) Hypotension Impression: He is still hypotensive with systolics in the 90s. Sometimes up to 113 systolic today. There is currently no evidence of hypoperfusion. Lactic acid was normal and his renal function is stable as well as urine output. We are holding diltiazem. We will hold off on further IV hydration as he is quite edematous and has received multiple liters of IV fluids. If his blood pressure drops further then he may need norepinephrine. (5) Alkalosis, hyperchloremic with hypokalemia Impression: Present since admission. This is likely due to his TPN, IVF and respiratory alkalosis. Today: Laboratory Tests 10/01/21 15:36 VBG pH 7.526 H VBG pCO2 18.3 L VBG HCO3 14.8 L VBG Total CO2 15.4 L VBG Base Excess -5.9 L K is stable since we have added K to TPN and he is on 160 meq/day. Chronic/Resolved problems: (6) Hypoglycemia, resolved Impression: This was secondary to lack of oral intake. He has since been on D5 half-normal and will now be on TPN once again. Blood glucose 101 > 132 > 127>130 (7) Chemotherapy induced neutropenia, resolved Impression: WBC count 09/18 was 2.0 and dropped to 1.3. On 09/23 it increased to 12.0. It has since dropped to 3.8. He remains on IV antibiotics for suspected neutropenic colitis. (8) Hypernatremia, resolved Impression: This has resolved. This was secondary to decreased oral intake and resuscitation with normal saline. (9) SVT (supraventricular tachycardia) resolved Impression: This was initially treated with a diltiazem drip and IV digoxin. He was sent switched to oral Cardizem but due to hypotension, we have held this for days now. We will continue to monitor on telemetry and resume diltiazem when appropriate. 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 He will continue outpatient follow-up with his oncologist once dis charged. (11) Acute kidney injury, resolved Impression: His creatinine has been slightly increased at 1.3, which I suspect may be have due to ATN secondary to the hypotension. Today he is 0.9. His urine output has remained adequate. We will continue to monitor for the time being but will hold off on further hydration given he is so edematous and has received multiple liters of IV fluids.
[2021-10-02] MEDS ORDERED: METOCLOPRAMIDE 10 MG/2 ML VIAL IVP STA (11:41)
[2021-10-02] MEDS: SODIUM CHLORIDE FLUSH 0.9% 10 ML SYRINGE IVP PRN (12:00)
[2021-10-02] MEDS: ZINC OXIDE 20% OINT 30 GM TUBE TOP PRN ×2 (12:17→23:38)
[2021-10-02] MEDS: SOY IV SCH (18:57)
[2021-10-02] MEDS: FAT EMULSION IV SCH (18:57)
[2021-10-02] MEDS: TPN (CLINIMIX E 5/15) 2,000 ML with MULTIVITAMIN 10 ML, TRACE ELEMENTS 1 ML, POTASSIUM ... IV SCH ×4 (18:57)
[2021-10-02] MEDS: OLIVE IV SCH (18:57)
[2021-10-02] MEDS: PHOSPHO IV SCH (18:57)
[2021-10-03] MEDS: PIPERACILLIN/TAZOBACTAM 4.5 GM in SODIUM CHLORIDE 0.9% MINIBAG 100 ML IV SCH ×3 (03:48→19:30)
[2021-10-03 05:55] LABS: BASOPHILS % (AUTO) 0.4 %; EOSINOPHILS % (AUTO) 1.3 %; HCT - HEMATOCRIT 25.9 % (42.0-52.0); HGB - HEMOGLOBIN 8.3 g/dL (14.0-18.0); LYMPHOCYTES % (AUTO) 16.3 %; MEAN CORPUSCULAR HEMOGLOBIN 33.6 pg (27.0-31.0); MEAN CORPUSCULAR VOLUME 104.9 fL (80.0-94.0); MEAN PLATELET VOLUME 10.4 fL (7.4-11.4); MONOCYTES % (AUTO) 5.9 %; NEUTROPHILS % (AUTO) 72.5 %; PLT - PLATELET COUNT 148 10^3/uL (130-450); RED BLOOD COUNT 2.47 10^6/uL (4.70-6.10); RED CELL DISTRIBUTION WIDTH 19.4 % (12.0-15.0); WHITE BLOOD COUNT 4.7 x10^3/uL (4.8-10.8)
[2021-10-03 06:00] LABS: ABNORMAL LYMPHS % (MANUAL) 0 %
[2021-10-03 06:09] LABS: BILIRUBIN,DIRECT 0.1 mg/dL (0.1-0.5); BILIRUBIN,TOTAL 0.3 mg/dL (0.2-1.0); CALCIUM 7.1 mg/dL (8.5-10.3); CREATININE 0.6 mg/dL (0.6-1.2); POTASSIUM 3.6 mmol/L (3.5-5.0); TOTAL PROTEIN 3.9 g/dL (6.7-8.2)
[2021-10-03 06:19] LABS: BAND NEUTROPHILS % (MANUAL) 2 %; DIFFERENTIAL COMMENT MANUAL DIFFERENTIAL; LYMPHOCYTES # (MANUAL) 0.8 10^3/uL (1.5-3.5); LYMPHOCYTES % (MANUAL) 16 %; MONOCYTES # (MANUAL) 0.2 10^3/uL (0.0-1.0); NEUTROPHILS # (MANUAL) 3.7 10^3/uL (1.5-6.6); PLATELET ESTIMATE, MANUAL NORMAL (130-450,000) (NORMAL); PLATELET MORPHOLOGY NORMAL APPEARANCE (NORMAL); WBC MORPHOLOGY (MULTIPLE) NORMAL APPEARANCE (NORMAL)
[2021-10-03] MEDS: PANTOPRAZOLE 40 MG TABLET PO SCH (06:28)
--- NOTE | 2021-10-03 08:04 | PROVIDER PROGRESS NOTE ---
Subjective - Prog Note Date Prog Note Date: 10/03/21 Prog Note Time: 08:03 - Subjective Pt reports feeling: Improved Subjective: We clamped his NG tube yesterday afternoon. He has been started on clear liquids. So far he has tolerated them well. He does eat red Jell-O and that is change the color of his stool to a reddish tinge at times. No abdominal pain. No increasing distention. No emesis. Current Medications - Current Medications Current Medications: Active Medications Acetaminophen (Acetaminophen 160 Mg/5 Ml Susp Udc) 640 mg PO Q4HR PRN PRN Reason: Pain 1 to 4 Last Admin: 10/02/21 13:20 Dose: 640 mg Documented by: Al Hydroxide/Mg Hydroxide (Mag Hydrox/Al Hydrox/Simeth 30 Ml Udc) 30 ml PO Q4HR PRN PRN Reason: INDIGESTION Last Admin: 09/22/21 21:00 Dose: 30 ml Documented by: Diltiazem HCl (Diltiazem Cd 120 Mg Capsule) 120 mg PO DAILY [facility] Last Admin: 10/02/21 09:13 Dose: 120 mg Documented by: Enoxaparin Sodium (Enoxaparin 40 Mg/0.4 Ml Syringe) 40 mg SUBQ DAILY [facility] Last Admin: 10/02/21 09:14 Dose: 40 mg Documented by: Heparin Sodium (Beef Lung) (Heparin Flush 50 Units/5 Ml Syringe) 30 - 50 unit IVP PRN PRN PRN Reason: Port Protocol (<24 hours) Last Admin: 09/27/21 04:13 Dose: 50 unit Documented by: Piperacillin Sod/Tazobactam (Sod 4.5 gm/ Sodium Chloride) 100 mls @ 25 mls/hr IV Q8H [facility] Last Admin: 10/03/21 03:48 Dose: 25 mls/hr Documented by: FAT EMULSION/OLIVE/SOY/PHOSPHO (Clinolipid 20% Iv Fat Emulsion) 50 gm in 250 mls @ 21 mls/hr IV 1900 [facility] Last Infusion: 10/02/21 22:22 Dose: 21 mls/hr Documented by: Sodium Chloride (Normal Saline 0.9%) 500 mls @ 20 mls/hr IV Q24H PRN PRN Reason: TKO RATE Last Admin: 10/01/21 18:57 Dose: 20 mls/hr Documented by: Multivitamins 10 ml/ TRACE ELEMENTS 1 ml/ Potassium Chloride 80 meq/ Amino Ac/Electrol/Dextrose/Calcium 2,051 mls @ 83 mls/hr IV TPN/PPN [facility] Last Infusion: 10/02/21 22:22 Dose: 83 mls/hr Documented by: Mineral Oil (Min Oil/Dimethicon/Coconut Oil 92 Gm Tube) 1 applic TOP PRN PRN PRN Reason: Skin Care Last Admin: 09/30/21 04:51 Dose: 1 applic Documented by: Morphine Sulfate (Morphine 2 Mg/Ml Carpuject) 2 mg IVP Q2HR PRN PRN Reason: Pain 8 to 10 Last Admin: 09/27/21 17:57 Dose: 2 mg Documented by: Multi-Ingredient Ointment (Zinc Oxide 20% Oint 30 Gm Tube) 1 applic TOP PRN PRN PRN Reason: Skin Care Last Admin: 10/02/21 23:38 Dose: 1 applic Documented by: Ondansetron HCl (Ondansetron Odt 4 Mg Tablet) 4 mg TL Q6HR PRN PRN Reason: Nausea / Vomiting Ondansetron HCl (Ondansetron 4 Mg/2 Ml Vial) 4 mg IVP Q4HR PRN PRN Reason: Nausea / Vomiting Last Admin: 09/27/21 23:39 Dose: 4 mg Documented by: Oxycodone HCl (Oxycodone 5 Mg Tablet) 5 mg PO Q4HR PRN PRN Reason: Pain 5 to 7 Last Admin: 09/19/21 16:40 Dose: 5 mg Documented by: Pantoprazole Sodium (Pantoprazole 40 Mg Tablet) 40 mg PO QDAC [facility] Last Admin: 10/03/21 06:28 Dose: 40 mg Documented by: Psyllium Hydrophilic Mucilloid (Psyllium Packet) 1 packet PO DAILY PRN PRN Reason: Constipation Last Admin: 09/30/21 14:09 Dose: 1 packet Documented by: Sodium Chloride (Sodium Chloride Flush 0.9% 10 Ml Syringe) 10 ml IVP 0100,0900,1700 [facility] Last Admin: 10/02/21 23:36 Dose: 10 ml Documented by: Sodium Chloride (Sodium Chloride Flush 0.9% 10 Ml Syringe) 10 ml IVP PRN PRN PRN Reason: NEEDED PER PROVIDER ORDERS Last Admin: 10/02/21 12:00 Dose: 10 ml Documented by: Tamsulosin HCl (Tamsulosin 0.4 Mg Capsule) 0.4 mg PO DAILY [facility] Last Admin: 10/02/21 09:13 Dose: 0.4 mg Documented by: Potassium Chloride [K-Dur] 40 meq PO BID 09/08/21 Diphenoxylate/Atropine [Lomotil] 2.5 mg PO PRN PRN 09/15/21 Objective - Vital Signs/Intake & Output Reviewed Vital Signs: Yes Vital Signs: Vital Signs x48h Temp Pulse Resp BP Pulse Ox 10/03/21 05:30 36.4 C L 83 18 110/52 L 99 Intake & Output: Intake & Output 09/30/21 10/01/21 10/02/21 10/03/21 23:59 23:59 23:59 23:59 Intake Total 3776.083 2604 5495.799 92.917 Output Total 3015 1625 1000 1100 Balance 761.606 709 3633.799 -1007.083 - Objective General Appearance: positive: Alert, Other (Sitting up in bed, his red knitted hat on, morning news on, getting ready to eat his clear liquid diet. Lucid conversation.) Eyes Bilateral: positive: PERRL, EOMI ENT: positive: No signs of dehydration, Other (NG in right nares) Neck: positive: No JVD. negative: Stiff neck Respiratory: positive: No respiratory distress. negative: Wheezes, Rales, Rhonchi Cardiovascular: positive: Regular rate & rhythm. negative: Gallop/S4, Friction rub Abdomen: positive: Non-tender, No organomegaly, Nml bowel sounds, No distention Skin: positive: Warm, Dry Extremities: positive: Full ROM, No pedal edema Neurologic/Psychiatric: positive: Oriented x3, CN's nml (2-12). negative: Motor nml (He does not have focal deficits but has moderate generalized weakness. Seen for 30 minutes yesterday with physical therapy. He does need help with toileting and pericare. Able to roll to his left side, sit up, scoot himself forward to the edge of the bed and then place his feet on the floor to th) - Lab Results Fish Bones: 10/03/21 05:45 10/03/21 05:45 Other Labs: Lab Results x24hrs 10/03/21 10/03/21 Range/Units 05:45 05:45 WBC 4.7 L (4.8-10.8) x10^3/uL RBC 2.47 L (4.70-6.10) 10^6/uL Hgb 8.3 L (14.0-18.0) g/dL Hct 25.9 L (42.0-52.0) % MCV 104.9 H (80.0-94.0) fL MCH 33.6 H (27.0-31.0) pg MCHC 32.0 (32.0-36.0) g/dL RDW 19.4 H (12.0-15.0) % Plt Count 148 (130-450) 10^3/uL MPV 10.4 (7.4-11.4) fL Neut # (Auto) Not Reportable Lymph # (Auto) Not Reportable Woodson # (Auto) Not Reportable Eos # (Auto) Not Reportable Baso # (Auto) Not Reportable Absolute Nucleated RBC Not Reportable Total Counted 100 Band Neuts % (Manual) 2 (0 - 10) % Abnorm Lymph % (Manual) 0 % Nucleated RBC % Not Reportable Neutrophils # (Manual) 3.7 (1.5-6.6) 10^3/uL Lymphocytes # (Manual) 0.8 L (1.5-3.5) 10^3/uL Monocytes # (Manual) 0.2 (0.0-1.0) 10^3/uL Eosinophils # (Manual) 0.0 (0-0.7) 10^3/uL Basophils # (Manual) 0.0 (0-0.1) 10^3/uL Differential Comment MANUAL DIFFERENTIAL WBC Morphology NORMAL APPEARANCE (NORMAL) Platelet Estimate NORMAL (130-450,000) (NORMAL) Platelet Morphology NORMAL APPEARANCE (NORMAL) RBC Morph Micro Appear 1+ ANISOCYTOSIS (NORMAL) Sodium 139 (135-145) mmol/L Potassium 3.6 (3.5-5.0) mmol/L Chloride 117 H (101-111) mmol/L Carbon Dioxide 17 L (21-32) mmol/L Anion Gap 5.0 L (6-13) BUN 17 (6-20) mg/dL Creatinine 0.6 (0.6-1.2) mg/dL Estimated GFR (MDRD) 132 (>89) Glucose 118 H (70-100) mg/dL Calcium 7.1 L (8.5-10.3) mg/dL Total Bilirubin 0.3 (0.2-1.0) mg/dL Direct Bilirubin 0.1 (0.1-0.5) mg/dL AST 16 (10-42) IU/L ALT 15 (10-60) IU/L Alkaline Phosphatase 55 (42-121) IU/L Total Protein 3.9 L (6.7-8.2) g/dL Albumin 1.0 L (3.2-5.5) g/dL Globulin 2.9 (2.1-4.2) g/dL ABX Reporting Has patient been on IV antibiotics over the past 48 hours?: Yes Assessment/Plan - Problem List (1) Adynamic ileus Impression: Started to improve on October 02. Admitted September [address] showed dilated loops of small bowel. NG tube placed. Waxing and waning improvement. NG tube in and out.Repeat abdomen CT 09/27 showed worsening dilated loops of small bowel consistent with an infectious or inflammatory process when compared to 09/18 CT. Abdominal x-ray 09/28 also showed abnormally dilated loops of small bowel measuring up to 5.7cm. These findings are consistent with 09/27 CT and are more prominent than 09/22 plain film. NG tube was placed once again 09/28 and he has been made NPO Interestingly enough, he still has had 3-4 bowel movements each day. Stool is green and gelatinous. We will keep him on Zosyn IV for suspected neutropenic colitis. TPN restarted 09/28. C. diff test 09/28 negative. The patient is understandably depressed about all of this. He is questioning whether he will move forward with more chemotherapy if this is a result. But he is in good spirits. Trying to stay positive and has the nurses getting YouTube channels on for him so he can listen to music in background noise. He is also giving us ideas for how to make the patient experience better. He had increased distension and discomfort 10/01 and I repeated plain film. No free air. The same. And he felt better by late morning. I did pass on that his son thinks he may need to be transferred. Mr. Rodriguez said no. By the morning of the he was feeling good enough to try clear liquids. I have clamped the NG. He has had 2-3 clear liquid meals with no abdominal distention, pain. Plan: Pull NG today. Surprisingly, he wants me to wait till after breakfast. I so hope he does not need to have it replaced. It would be #4. Continue clear liquids for another day and advance to full liquids tomorrow. (2) Neutropenic colitis Impression: 09/27 CT continues to show inflammatory changes. He continues to have green gelantinous diarrhea but he is afebrile. His abdominal pain has improved overall and is stable. Worse cramping when he has a BM. We will continue him on Zosyn IV. Started 09/27. WBC was elevated and now normal for 48 hours. C. diff test 09/28 negative. TPN for nutrition. There are liquids started October 02. Plan: Stop antibiotics tomorrow (3) Chronic anemia due to nutritional deficiency and dilution His Hgb on 09/18 was 16.8. Today it is 8.3. Stable. No transfusions needed. We will monitor for that. (4) Hypotension improving Impression: He has been consistently hypotensive since admission. Sometimes requiring Levophed temporarily. Since being out of the ICU his systolic would drop into the low 90s, occasionally the high 80s. Starting the afternoon of the , his blood pressure started to rise to 104 systolic, then went to 110 systolic, and was as high as 131 systolic. This morning he is 110/52. There is currently no evidence of hypoperfusion. Lactic acid was normal and his renal function is stable as well as urine output. We are holding diltiazem. We will hold off on further IV hydration as he is quite edematous and has received multiple liters of IV fluids. (5) Alkalosis, hyperchloremic with hypokalemia Impression: Present since admission. This is likely due to his TPN, IVF and respiratory alkalosis. Laboratory Tests 10/01/21 15:36 VBG pH 7.526 H VBG pCO2 18.3 L VBG HCO3 14.8 L VBG Total CO2 15.4 L VBG Base Excess -5.9 L K is stable since we have added K to TPN and he is on 160 meq/day. Chronic/Resolved problems: (6) Hypoglycemia, resolved Impression: This was secondary to lack of oral intake. He has since been on D5 half-normal and will now be on TPN once again. Am Blood glucose 101 > 132 > 127>130>94>117>118 this am (7) Chemotherapy induced neutropenia, resolved Impression: WBC count 09/18 was 2.0 and dropped to 1.3. On 09/23 it increased to 12.0. It has since dropped to 3.8. He was normal 10/01 and 10/02 and back to 4.7 today. We are monitoring. (8) Hypernatremia, resolved Impression: This has resolved. This was secondary to decreased oral intake and resuscitation with normal saline. (9) SVT (supraventricular tachycardia) resolved Impression: This was initially treated with a diltiazem drip and IV digoxin. He was sent switched to oral Cardizem but due to hypotension, we have held this for days now. We will continue to monitor on telemetry and resume diltiazem when appropriate. 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 He will continue outpatient follow-up with his oncologist once disch arged. (11) Acute kidney injury, resolved Impression: His creatinine has been slightly increased at 1.3, which I suspect may be have due to ATN secondary to the hypotension. Today he is 0.9. His urine output has remained adequate. We will continue to monitor for the time being but will hold off on further hydration given he is so edematous and has received multiple liters of IV fluids.
[2021-10-03] MEDS: SODIUM CHLORIDE FLUSH 0.9% 10 ML SYRINGE IVP SCH ×2 (09:18→19:21)
[2021-10-03] MEDS: TAMSULOSIN 0.4 MG CAPSULE PO SCH (09:18)
[2021-10-03] MEDS: diltiaZEM CD 120 MG CAPSULE PO SCH (09:18)
[2021-10-03] MEDS: ENOXAPARIN 40 MG/0.4 ML SYRINGE SUBQ SCH (09:18)
[2021-10-03] MEDS: LIDOCAINE JELLY 2% 6 ML JEL.PF.APP TOP PRN ×3 (16:10→20:35)
[2021-10-03] MEDS: FAT EMULSION IV SCH (19:22)
[2021-10-03] MEDS: TPN (CLINIMIX E 5/15) 2,000 ML with MULTIVITAMIN 10 ML, TRACE ELEMENTS 1 ML, POTASSIUM ... IV SCH ×4 (19:22)
[2021-10-03] MEDS: SOY IV SCH (19:22)
[2021-10-03] MEDS: PHOSPHO IV SCH (19:22)
[2021-10-03] MEDS: OLIVE IV SCH (19:22)
[2021-10-03] MEDS: MAG HYDROX/AL HYDROX/SIMETH 30 ML UDC PO PRN (22:30)
[2021-10-04] MEDS: SODIUM CHLORIDE FLUSH 0.9% 10 ML SYRINGE IVP SCH ×3 (01:55→19:14)
[2021-10-04] MEDS: PIPERACILLIN/TAZOBACTAM 4.5 GM in SODIUM CHLORIDE 0.9% MINIBAG 100 ML IV SCH (03:21)
[2021-10-04] MEDS: PANTOPRAZOLE 40 MG TABLET PO SCH (06:42)
--- NOTE | 2021-10-04 07:39 | PROVIDER PROGRESS NOTE ---
Subjective - Prog Note Date Prog Note Date: 10/04/21 Prog Note Time: 09:10 - Subjective Pt reports feeling: Improved Subjective: So far his blood pressure has stayed stable for the last 48 hours. Consistently in the low 1 teens as opposed to the 80s and 90s he was before. Still with the gelatinous stool. Has tolerated 2 days of clear liquids and I advanced him to full liquids this morning and he is tolerated that. He is looking forward to a piece of toast and some mike. Still very weak, needs a lot of help to get up and about. Denies chest pain, palpitations, shortness of breath. Denies any limb pain. Low back aches from being in a hospital bed he tells me Current Medications - Current Medications Current Medications: Active Medications Acetaminophen (Acetaminophen 160 Mg/5 Ml Susp Udc) 640 mg PO Q4HR PRN PRN Reason: Pain 1 to 4 Last Admin: 10/02/21 13:20 Dose: 640 mg Documented by: Al Hydroxide/Mg Hydroxide (Mag Hydrox/Al Hydrox/Simeth 30 Ml Udc) 30 ml PO Q4HR PRN PRN Reason: INDIGESTION Last Admin: 10/03/21 22:30 Dose: 30 ml Documented by: Diltiazem HCl (Diltiazem Cd 120 Mg Capsule) 120 mg PO DAILY [facility] Last Admin: 10/04/21 07:52 Dose: Not Given Documented by: Enoxaparin Sodium (Enoxaparin 40 Mg/0.4 Ml Syringe) 40 mg SUBQ DAILY [facility] Last Admin: 10/03/21 09:18 Dose: 40 mg Documented by: Heparin Sodium (Beef Lung) (Heparin Flush 50 Units/5 Ml Syringe) 30 - 50 unit IVP PRN PRN PRN Reason: Port Protocol (<24 hours) Last Admin: 09/27/21 04:13 Dose: 50 unit Documented by: FAT EMULSION/OLIVE/SOY/PHOSPHO (Clinolipid 20% Iv Fat Emulsion) 50 gm in 250 mls @ 21 mls/hr IV 1900 [facility] Last Infusion: 10/04/21 08:41 Dose: Infused Documented by: Sodium Chloride (Normal Saline 0.9%) 500 mls @ 20 mls/hr IV Q24H PRN PRN Reason: TKO RATE Last Admin: 10/01/21 18:57 Dose: 20 mls/hr Documented by: Multivitamins 10 ml/ TRACE ELEMENTS 1 ml/ Potassium Chloride 80 meq/ Amino Ac/Electrol/Dextrose/Calcium 2,051 mls @ 83 mls/hr IV TPN/PPN [facility] Last Infusion: 10/03/21 22:01 Dose: 83 mls/hr Documented by: Lidocaine HCl (Lidocaine Jelly 2% 6 Ml Jel.Pf.Thierry) 2 ml TOP Q4H PRN PRN Reason: PAIN Last Admin: 10/03/21 16:10 Dose: 2 ml Documented by: Mineral Oil (Min Oil/Dimethicon/Coconut Oil 92 Gm Tube) 1 applic TOP PRN PRN PRN Reason: Skin Care Last Admin: 09/30/21 04:51 Dose: 1 applic Documented by: Morphine Sulfate (Morphine 2 Mg/Ml Carpuject) 2 mg IVP Q2HR PRN PRN Reason: Pain 8 to 10 Last Admin: 09/27/21 17:57 Dose: 2 mg Documented by: Multi-Ingredient Ointment (Zinc Oxide 20% Oint 30 Gm Tube) 1 applic TOP PRN PRN PRN Reason: Skin Care Last Admin: 10/02/21 23:38 Dose: 1 applic Documented by: Ondansetron HCl (Ondansetron Odt 4 Mg Tablet) 4 mg TL Q6HR PRN PRN Reason: Nausea / Vomiting Ondansetron HCl (Ondansetron 4 Mg/2 Ml Vial) 4 mg IVP Q4HR PRN PRN Reason: Nausea / Vomiting Last Admin: 09/27/21 23:39 Dose: 4 mg Documented by: Oxycodone HCl (Oxycodone 5 Mg Tablet) 5 mg PO Q4HR PRN PRN Reason: Pain 5 to 7 Last Admin: 09/19/21 16:40 Dose: 5 mg Documented by: Pantoprazole Sodium (Pantoprazole 40 Mg Tablet) 40 mg PO QDAC [facility] Last Admin: 10/04/21 06:42 Dose: 40 mg Documented by: Psyllium Hydrophilic Mucilloid (Psyllium Packet) 1 packet PO DAILY PRN PRN Reason: Constipation Last Admin: 09/30/21 14:09 Dose: 1 packet Documented by: Sodium Chloride (Sodium Chloride Flush 0.9% 10 Ml Syringe) 10 ml IVP 0100,0900,1700 [facility] Last Admin: 10/04/21 07:51 Dose: 10 ml Documented by: Sodium Chloride (Sodium Chloride Flush 0.9% 10 Ml Syringe) 10 ml IVP PRN PRN PRN Reason: NEEDED PER PROVIDER ORDERS Last Admin: 10/02/21 12:00 Dose: 10 ml Documented by: Tamsulosin HCl (Tamsulosin 0.4 Mg Capsule) 0.4 mg PO DAILY [facility] Last Admin: 10/04/21 07:50 Dose: 0.4 mg Documented by: Potassium Chloride [K-Dur] 40 meq PO BID 09/08/21 Diphenoxylate/Atropine [Lomotil] 2.5 mg PO PRN PRN 09/15/21 Objective - Vital Signs/Intake & Output Reviewed Vital Signs: Yes Vital Signs: Vital Signs x48h Temp Pulse Resp BP Pulse Ox 10/04/21 05:34 36.4 C L 88 18 113/59 L 97 10/03/21 23:53 36.5 C 87 16 121/57 L 99 Intake & Output: Intake & Output 10/01/21 10/02/21 10/03/21 10/04/21 23:59 23:59 23:59 23:59 Intake Total 2604 5495.799 4489.767 150 Output Total 1625 1000 2225 850 Balance 979 4495.799 2264.767 -700 - Objective General Appearance: positive: No acute distress, Alert, Other (Cachectic elderly gentleman, bilateral temporal wasting, hayes, disheveled hair.) Eyes Bilateral: positive: PERRL, EOMI ENT: positive: No signs of dehydration Neck: positive: No JVD. negative: Stiff neck Respiratory: positive: No respiratory distress, Other (Able to carry on a full conversation with no increased respiratory effort or increased respiratory rate). negative: Wheezes, Rales, Rhonchi Cardiovascular: positive: Regular rate & rhythm, Systolic murmur. negative: Gallop/S4, Friction rub Abdomen: positive: Non-tender, No organomegaly, No distention, Other (Abdominal wall slightly distended from bloating. Very loud borborygmi) Skin: positive: Warm, Dry Extremities: positive: Full ROM, No pedal edema Neurologic/Psychiatric: positive: Oriented x3, CN's nml (2-12). negative: Motor nml (Generalized weakness. Very deconditioned after being in the ICU and now MedSurg. Most of it in bed.) - Lab Results Fish Bones: 10/03/21 05:45 10/03/21 05:45 ABX Reporting Has patient been on IV antibiotics over the past 48 hours?: Yes Assessment/Plan - Problem List (1) Adynamic ileus Impression: Started to improve on October 02. Continues to slowly progress in the right direction. Admitted September [address] showed dilated loops of small bowel. NG tube placed. Waxing and waning improvement. NG tube in and out.Repeat abdomen CT 09/27 showed worsening dilated loops of small bowel consistent with an infectious or inflammatory process when compared to 09/18 CT. Abdominal x-ray 09/28 also showed abnormally dilated loops of small bowel measuring up to 5.7cm. These findings are consistent with 09/27 CT and are more prominent than 09/22 plain film. NG tube was placed once again 09/28 and he has been made NPO Interestingly enough, he still has had 3-4 bowel movements each day. Stool is green and gelatinous. We will keep him on Zosyn IV for suspected neutropenic colitis. TPN restarted 09/28. C. diff test 09/28 negative. The patient is unders tandably depressed about all of this. He is questioning whether he will move forward with more chemotherapy if this is a result. But he is in good spirits. Trying to stay positive and has the nurses getting YouTube channels on for him so he can listen to music in background noise. He is also giving us ideas for how to make the patient experience better. He had increased distension and discomfort 10/01 and I repeated plain film. No free air. The same. And he felt better by late morning. I did pass on that his son thinks he may need to be transferred. Mr. Rodriguez said no. By the morning of the he was feeling good enough to try clear liquids. I clamped the NG. He has had 2-3 clear liquid meals with no abdominal distention, pain. NG pulled the afternoon of 10/03 and so far no return of distension, BP is stable, no abd pain. No emesis. Plan: Full liquid diet today. REgular diet tomorrow. (2) Neutropenic colitis Impression: 09/27 CT continues to show inflammatory changes. He continues to have green gelantinous diarrhea but he is afebrile. His abdominal pain has improved overall and is stable. Worse cramping when he has a BM. We will continue him on Zosyn IV. Started 09/27. WBC was elevated and now normal for 48 hours. C. diff test 09/28 negative. TPN for nutrition. There are liquids started October 02. Plan: Stop antibiotics today (3) Chronic anemia due to nutritional deficiency and dilution His Hgb on 09/18 was 16.8. 10/03 it is 8.3. Stable. No transfusions needed. We will monitor for that. Labs ordered for tomorrow (4) Hypotension resolved Impression: He has been consistently hypotensive since admission. Sometimes requiring Levophed temporarily. Since being out of the ICU his systolic would drop into the low 90s, occasionally the high 80s. Starting the afternoon of the , his blood pressure started to rise to 104 systolic, then went to 110 systolic, and was as high as 131 systolic. This morning he is 113/59. There is currently no evidence of hypoperfusion. Lactic acid was normal and his renal function is stable as well as urine output. We are holding diltiazem. We will hold off on further IV hydration as he is quite edematous and has received multiple liters of IV fluids. (5) Alkalosis, hyperchloremic with hypokalemia Impression: Present since admission. This is likely due to his TPN, IVF and respiratory alkalosis. Laboratory Tests 10/01/21 15:36 VBG pH 7.526 H VBG pCO2 18.3 L VBG HCO3 14.8 L VBG Total CO2 15.4 L VBG Base Excess -5.9 L K is stable since we have added K to TPN and he is on 160 meq/day. Chronic/Resolved problems: (6) Hypoglycemia, resolved Impression: This was secondary to lack of oral intake. He has since been on D5 half-normal and will now be on TPN once again. Am Blood glucose 101 > 132 > 127>130>94>117>118 on 10/03 (7) Chemotherapy induced neutropenia, resolved Impression: WBC count 09/18 was 2.0 and dropped to 1.3. On 09/23 it increased to 12.0. It has since dropped to 3.8. He was normal 10/01 and 10/02 and back to 4.7 10/03. We are monitoring. Will order CBC for tomorrow (8) Hypernatremia, resolved Impression: This has resolved. This was secondary to decreased oral intake and resuscitation with normal saline. (9) SVT (supraventricular tachycardia) resolved Impression: This was initially treated with a diltiazem drip and IV digoxin. He was sent switched to oral Cardizem but due to hypotension, we have held this for days now. We will continue to monitor on telemetry and resume diltiazem when appropriate. 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 He will continue outpatient follow-up with his oncologist once discharged. (11) Acute kidney injury, resolved Impression: His creatinine has been slightly increased at 1.3, which I suspect may be have due to ATN secondary to the hypotension. Today he is 0.9. His urine output has remained adequate. We will continue to monitor for the time being but will hold off on further hydration given he is so edematous and has received multiple liters of IV fluids.
[2021-10-04] MEDS: TAMSULOSIN 0.4 MG CAPSULE PO SCH (07:50)
[2021-10-04] MEDS: diltiaZEM CD 120 MG CAPSULE PO SCH (07:52)
[2021-10-04] MEDS: SODIUM CHLORIDE 0.9% 500 ML IV PRN (09:47)
[2021-10-04] MEDS: MAG HYDROX/AL HYDROX/SIMETH 30 ML UDC PO PRN (10:32)
[2021-10-04] MEDS: ENOXAPARIN 40 MG/0.4 ML SYRINGE SUBQ SCH (11:23)
[2021-10-04] MEDS: LIDOCAINE JELLY 2% 6 ML JEL.PF.APP TOP PRN ×2 (16:11→23:59)
[2021-10-04] MEDS: FAT EMULSION IV SCH (19:14)
[2021-10-04] MEDS: SOY IV SCH (19:14)
[2021-10-04] MEDS: OLIVE IV SCH (19:14)
[2021-10-04] MEDS: TPN (CLINIMIX E 5/15) 2,000 ML with MULTIVITAMIN 10 ML, TRACE ELEMENTS 1 ML, POTASSIUM ... IV SCH ×4 (19:14)
[2021-10-04] MEDS: PHOSPHO IV SCH (19:14)
[2021-10-05] MEDS: PANTOPRAZOLE 40 MG TABLET PO SCH (06:09)
[2021-10-05 06:34] LABS: BASOPHILS % (AUTO) 0.4 %; EOSINOPHILS % (AUTO) 0.5 %; HCT - HEMATOCRIT 27.8 % (42.0-52.0); HGB - HEMOGLOBIN 8.9 g/dL (14.0-18.0); LYMPHOCYTES # (AUTO) 0.8 10^3/uL (1.5-3.5); LYMPHOCYTES % (AUTO) 10.5 %; MEAN CORPUSCULAR HEMOGLOBIN 33.6 pg (27.0-31.0); MEAN CORPUSCULAR VOLUME 104.9 fL (80.0-94.0); MEAN PLATELET VOLUME 9.9 fL (7.4-11.4); MONOCYTES # (AUTO) 0.4 10^3/uL (0.0-1.0); NEUTROPHILS % (AUTO) 80.5 %; NRBC ABSOLUTE COUNT (AUTO) 0.02 x10^3/uL; NUCLEATED RED BLOOD CELLS AUTO 0.3 /100WBC; PLT - PLATELET COUNT 170 10^3/uL (130-450); RED BLOOD COUNT 2.65 10^6/uL (4.70-6.10); WHITE BLOOD COUNT 7.5 x10^3/uL (4.8-10.8)
[2021-10-05 06:39] LABS: CALCIUM 7.4 mg/dL (8.5-10.3); CREATININE 0.6 mg/dL (0.6-1.2); POTASSIUM 3.9 mmol/L (3.5-5.0)
[2021-10-05] MEDS: ENOXAPARIN 40 MG/0.4 ML SYRINGE SUBQ SCH (08:11)
[2021-10-05] MEDS: diltiaZEM CD 120 MG CAPSULE PO SCH (08:13)
[2021-10-05] MEDS: SODIUM CHLORIDE FLUSH 0.9% 10 ML SYRINGE IVP SCH ×3 (08:13→18:56)
[2021-10-05] MEDS: TAMSULOSIN 0.4 MG CAPSULE PO SCH (08:13)
[2021-10-05 09:22] LABS: FOLATE 10.52 ng/mL (5.90 - >24.8)
[2021-10-05] MEDS: MAG HYDROX/AL HYDROX/SIMETH 30 ML UDC PO PRN ×2 (10:44→22:28)
[2021-10-05] MEDS: ACETAMINOPHEN 160 MG/5 ML SUSP UDC PO PRN ×3 (10:52→11:51)
--- NOTE | 2021-10-05 15:31 | PROVIDER PROGRESS NOTE ---
Progress Note October 05, 2021 3:25 PM Very brief note. The power is got out of the hospital only having intermittent service and use of the computers. He has been advanced from clear liquids to full liquid successfully. Today we try to do mike and toast only with the morning. But by lunchtime he was bloated distended and uncomfortable. So we keeping him on full liquids diets. Other than that he denies chest pain, palpitations, shortness of breath. He is disappointed about the slight setback. But I reminded him that we do not have to put in the NG tube right now and he is having bowel movements. Medications: Tylenol, Mylanta, TPN, Cardizem CD 120, Lovenox, heparin, lidocaine gel to his testicles for a rash, Cavilon, morphine as needed not been used since September 18, zinc oxide, Zofran, Roxicodone as needed not used since the . Protonix. Metamucil. Flomax. Temperature is 36.3. Heart rate 91. Blood pressure 107/56. Respirations 20. 98% on room air. He is 78.5 kg. Comfortable, alert, elderly gentleman who looks his stated age. Wearing his read needed happens always. Neck is supple, no JVD Lungs are clear to auscultation and percussion with slow, steady, unlabored respirations Regular rate and rhythm. Abdomen is slightly bloated, slightly distended in the central area. But no rebound or guarding and he has normal bowel sounds. No edema. Weak. Moving with no focal deficits. No ataxia. Today's BMP shows a chloride that is coming down. He is 114. Carbon dioxide is coming up when he is 19. Anion gap is low at 4. Random glucose 88. B12 is 3949. Folate 10.52. White cell count 7.5. Hemoglobin 8.9. Hematocrit 27.8. Platelets 170. Assessment/plan: 1. Adynamic ileus and neutropenic colitis. Is been a long, long complicated course. In reviewing the literature this can sometimes takes weeks to recover. He has been here 18 days. He has had intermittent NG's that have gone in and out depending on his bloating. He is having bowel movements any C. difficile negative. Antibiotics were used and he received Zosyn which was discontinued October 04. We will continue to support him and slowly advance his diet to avoid bloating and pain. Nutrition services is working closely with him in an effort to anticipate his needs but at the same time avoid pain and bloating. 2. Chronic anemia due to nutritional deficiency and dilution. That is stable. No need for transfusion 3. Chemotherapy induced neutropenia is resolved. 4. Hypotension. Consistently hypotensive since admission. Sometimes needed Levophed. Starting the afternoon of October 02 his blood pressure finally started to rise and was stable by the morning of the . Today he has had mild step back. But still maintaining decent perfusion.
[2021-10-05] MEDS: OLIVE IV SCH (18:56)
[2021-10-05] MEDS: PHOSPHO IV SCH (18:56)
[2021-10-05] MEDS: FAT EMULSION IV SCH (18:56)
[2021-10-05] MEDS: SOY IV SCH (18:56)
[2021-10-05] MEDS: TPN (CLINIMIX E 5/15) 2,000 ML with MULTIVITAMIN 10 ML, TRACE ELEMENTS 1 ML, POTASSIUM ... IV SCH ×4 (18:56)
[2021-10-05] MEDS: LIDOCAINE JELLY 2% 6 ML JEL.PF.APP TOP PRN (22:28)
[2021-10-06] MEDS: SODIUM CHLORIDE FLUSH 0.9% 10 ML SYRINGE IVP SCH ×4 (01:53→23:44)
[2021-10-06] MEDS: LIDOCAINE JELLY 2% 6 ML JEL.PF.APP TOP PRN ×2 (01:54→23:44)
[2021-10-06] MEDS: ZINC OXIDE 20% OINT 30 GM TUBE TOP PRN (01:54)
[2021-10-06] MEDS: SODIUM CHLORIDE 0.9% 500 ML IV PRN (06:54)
[2021-10-06] MEDS: PANTOPRAZOLE 40 MG TABLET PO SCH (07:02)
--- NOTE | 2021-10-06 07:41 | PROVIDER PROGRESS NOTE ---
Assessment/Plan - Problem List (1) Neutropenic colitis Assessment/Plan: Improved. NG tube had been discontinued. Diet advanced to soft diet today. It is anticipated that this could take weeks to resolve. Antibiotics discontinued October 04, 2021. Nutrition services working with patient. Patient may need TPN at time of discharge due to Patient's in taking adequate nutrition as a result of ileus. Case management/social work/discharge coordinators working to facilitate the process of getting the patient to a facility that would potentially do TPN (2) Chemotherapy-induced diarrhea Assessment/Plan: Improving. C. diff test was negative (3) Neutropenia Qualifiers: Neutropenia type: other Qualified Code(s): D70.8 - Other neutropenia Assessment/Plan: Resolved (4) SVT (supraventricular tachycardia) Assessment/Plan: Resolved (5) Adenocarcinoma of rectum, stage 3 Assessment/Plan: Patient to follow-up with his oncologist in the outpatient setting. (6) Metabolic acidosis with respiratory alkalosis Assessment/Plan: Resolved - Current Meds Current Meds: Current Medications Generic Name Dose Route Start Last Admin Trade Name Freq PRN Reason Stop Dose Admin Acetaminophen 640 mg 10/01/21 11:28 10/05/21 11:51 Acetaminophen 160 Mg/5 Ml Susp Udc PO 320 mg Q4HR PRN Administration Pain 1 to 4 Al Hydroxide/Mg Hydroxide 30 ml 09/22/21 20:39 10/05/21 22:28 Mag Hydrox/Al Hydrox/Simeth 30 Ml Udc PO 30 ml Q4HR PRN Administration INDIGESTION Diltiazem HCl 120 mg 09/27/21 07:35 10/05/21 08:13 Diltiazem Cd 120 Mg Capsule PO 120 mg DAILY SPENCER Administration Enoxaparin Sodium 40 mg 09/19/21 09:00 10/05/21 08:11 Enoxaparin 40 Mg/0.4 Ml Syringe SUBQ 40 mg DAILY SPENCER Administration Heparin Sodium (Beef Lung) 30 - 50 unit 09/26/21 16:30 09/27/21 04:13 Heparin Flush 50 Units/5 Ml Syringe IVP 50 unit PRN PRN Administration Port Protocol (<24 hours) FAT EMULSION/OLIVE/SOY/PHOSPHO 50 gm in 250 mls @ 21 mls/hr 09/28/21 19:00 10/05/21 22:31 Clinolipid 20% Iv Fat Emulsion IV 21 mls/hr 1900 SPENCER Infusion Sodium Chloride 500 mls @ 20 mls/hr 09/29/21 08:53 10/06/21 06:54 Normal Saline 0.9% IV 20 mls/hr Q24H PRN Administration TKO RATE Multivitamins 10 ml/ TRACE 2,051 mls @ 83 mls/hr 10/01/21 19:00 10/05/21 22:30 ELEMENTS 1 ml/ Potassium IV 83 mls/hr Chloride 80 meq/ Amino Ac/ TPN/PPN SPENCER Infusion Electrol/Dextrose/Calcium Lidocaine HCl 2 ml 10/03/21 15:01 10/06/21 01:54 Lidocaine Jelly 2% 6 Ml Jel.Pf.Thierry TOP 2 ml Q4H PRN Administration PAIN Mineral Oil 1 applic 09/19/21 16:51 09/30/21 04:51 Min Oil/Dimethicon/Coconut Oil 92 Gm Tube TOP 1 applic PRN PRN Administration Skin Care Morphine Sulfate 2 mg 09/18/21 22:41 09/27/21 17:57 Morphine 2 Mg/Ml Carpuject IVP 2 mg Q2HR PRN Administration Pain 8 to 10 Multi-Ingredient Ointment 1 applic 10/02/21 09:11 10/06/21 01:54 Zinc Oxide 20% Oint 30 Gm Tube TOP 1 applic PRN PRN Administration Skin Care Ondansetron HCl 4 mg 09/19/21 01:56 09/27/21 23:39 Ondansetron 4 Mg/2 Ml Vial IVP 4 mg Q4HR PRN Administration Nausea / Vomiting Oxycodone HCl 5 mg 09/18/21 22:41 09/19/21 16:40 Oxycodone 5 Mg Tablet PO 5 mg Q4HR PRN Administration Pain 5 to 7 Pantoprazole Sodium 40 mg 09/27/21 07:00 10/06/21 07:02 Pantoprazole 40 Mg Tablet PO 40 mg QDAC SPENCER Administration Psyllium Hydrophilic Mucilloid 1 packet 09/30/21 10:44 09/30/21 14:09 Psyllium Packet PO 1 packet DAILY PRN Administration Constipation Sodium Chloride 10 ml 09/19/21 01:00 10/06/21 01:53 Sodium Chloride Flush 0.9% 10 Ml Syringe IVP Not Given 0100,0900,1700 SPENCER Sodium Chloride 10 ml 09/18/21 22:41 10/02/21 12:00 Sodium Chloride Flush 0.9% 10 Ml Syringe IVP 10 ml PRN PRN Administration NEEDED PER PROVIDER ORDERS Tamsulosin HCl 0.4 mg 10/01/21 09:00 10/05/21 08:13 Tamsulosin 0.4 Mg Capsule PO 0.4 mg DAILY SPENCER Administration - Lab Result Fish Bone Diagrams: 10/06/21 08:09 10/06/21 08:09 Subjective - Subjective Patient Reports: Other (Patient more alert and awake today. Denied any abdominal pain. Reports feeling better. Tolerated a breakfast of eggs well today. Reported improvement in diarrhea) Objective Vital Signs: Vital Signs - 24 hr 10/05/21 10/05/21 10/05/21 07:46 11:59 17:00 Temperature 36.7 C 36.3 C L 36.4 C L Heart Rate [ 101 H 91 88 Brachial] Respiratory 20 20 24 Rate Blood Pressure 117/55 L 107/56 L 103/55 L [Right Brachial artery] O2 Saturation 96 98 98 10/05/21 10/05/21 10/06/21 20:16 23:55 05:00 Temperature 36.4 C L 36.5 C 36.7 C Heart Rate [ 87 85 84 Brachial] Respiratory 24 24 22 Rate Blood Pressure 111/50 L 110/46 L 126/85 H [Right Brachial artery] O2 Saturation 100 98 97 Oxygen O2 Source Room air I&O (Last 24 Hrs): Intake and Output Totals x24h 10/04/21 10/05/21 10/06/21 23:59 23:59 23:59 Intake Total 4291.333 2732.383 525 Output Total 2125 1950 700 Balance 2166.333 782.383 -175 General: Alert, Oriented x3 HEENT: PERRLA, EOMI Neck: Supple, No JVD Neuro: Alert, Non Focal, Oriented Times 3 Cardiovascular: Regular rate, No murmurs Respiratory: Chest non-tender, No respiratory distress, Breath sounds nml Abdomen: Normal bowel sounds, Soft, No tenderness Extremities: No clubbing, No cyanosis, No edema, No tenderness/swelling Skin: No rashes, No breakdown, No significant lesion - Results Results: Laboratory Results WBC 7.5 x10^3/uL (4.8-10.8) 10/05/21 06:10 RBC 2.65 10^6/uL (4.70-6.10) L 10/05/21 06:10 Hgb 8.9 g/dL (14.0-18.0) L 10/05/21 06:10 Hct 27.8 % (42.0-52.0) L 10/05/21 06:10 MCV 104.9 fL (80.0-94.0) H 10/05/21 06:10 MCH 33.6 pg (27.0-31.0) H 10/05/21 06:10 MCHC 32.0 g/dL (32.0-36.0) 10/05/21 06:10 RDW 19.0 % (12.0-15.0) H 10/05/21 06:10 Plt Count 170 10^3/uL (130-450) 10/05/21 06:10 MPV 9.9 fL (7.4-11.4) 10/05/21 06:10 Neut # (Auto) 6.0 10^3/uL (1.5-6.6) 10/05/21 06:10 Lymph # (Auto) 0.8 10^3/uL (1.5-3.5) L 10/05/21 06:10 [place] # (Auto) 0.4 10^3/uL (0.0-1.0) 10/05/21 06:10 Eos # (Auto) 0.0 10^3/uL (0.0-0.7) 10/05/21 06:10 Baso # (Auto) 0.0 10^3/uL (0.0-0.1) 10/05/21 06:10 Absolute Nucleated RBC 0.02 x10^3/uL 10/05/21 06:10 Total Counted 100 10/03/21 05:45 Band Neuts % (Manual) 2 % (0-10) 10/03/21 05:45 Abnorm Lymph % (Manual) 0 % 10/03/21 05:45 Metamyelocytes % 1 % (-0) H 09/23/21 04:15 Myelocytes % 1 % (-0) H 09/29/21 04:55 Nucleated RBC % 0.3 /100WBC 10/05/21 06:10 Neutrophils # (Manual) 3.7 10^3/uL (1.5-6.6) 10/03/21 05:45 Lymphocytes # (Manual) 0.8 10^3/uL (1.5-3.5) L 10/03/21 05:45 Monocytes # (Manual) 0.2 10^3/uL (0.0-1.0) 10/03/21 05:45 Eosinophils # (Manual) 0.0 10^3/uL (0-0.7) 10/03/21 05:45 Basophils # (Manual) 0.0 10^3/uL (0-0.1) 10/03/21 05:45 Nucleated RBCs 2 % 09/27/21 14:23 Differential Comment MANUAL DIFFERENTIAL 10/03/21 05:45 Manual Slide Review Indicated 09/24/21 09:11 WBC Morphology NORMAL APPEARANCE (NORMAL) 10/03/21 05:45 Platelet Estimate NORMAL (130-450,000) (NORMAL) 10/03/21 05:45 Platelet Morphology NORMAL APPEARANCE (NORMAL) 10/03/21 05:45 RBC Morph Micro Appear 1+ MACROCYTOSIS (NORMAL) 1+ ANISOCYTOSIS (NORMAL) 10/03/21 05:45 RBC Morph Micro Appear 1+ MACROCYTOSIS (NORMAL) 1+ ANISOCYTOSIS (NORMAL) 10/03/21 05:45 D-Dimer 925.3 ng/mL (200.0-255.0) H 09/18/21 20:50 Bld Gas Analysis Time 1212 09/20/21 12:00 Sample Site RIGHT RADIAL 09/20/21 12:00 ABG pH 7.43 (7.35-7.45) 09/20/21 12:00 ABG pCO2 23 mmHg (34-45) L* 09/20/21 12:00 ABG pO2 84 mmHg (80-100) 09/20/21 12:00 ABG HCO3 14.6 mmol/L (22.0-26.0) L 09/20/21 12:00 ABG Total CO2 15.3 MMOL/L (21.0-29.0) L 09/20/21 12:00 ABG O2 Saturation 97 % (94-98) 09/20/21 12:00 ABG Base Excess -7.8 mmol/L (-2.0-3.0) L 09/20/21 12:00 Pineda Test POSITIVE 09/20/21 12:00 VBG pH 7.526 (7.31-7.41) H 10/01/21 15:36 VBG pCO2 18.3 mmHg (41-51) L 10/01/21 15:36 VBG pO2 52.7 mmHg (25-47) H 10/01/21 15:36 VBG HCO3 14.8 mmol/L (23-28) L 10/01/21 15:36 VBG Total CO2 15.4 mmol/L (24-29) L 10/01/21 15:36 VBG O2 Saturation 91.6 % (60-80) H 10/01/21 15:36 VBG Base Excess -5.9 mmol/L (-2 - +2) L 10/01/21 15:36 Ionized Calcium 1.09 mmol/L (1.15-1.33) L 09/26/21 04:11 Room Air YES 09/20/21 12:00 O2 Delivery Device BiPAP 09/18/21 21:15 FiO2 100.00 09/18/21 21:15 EPAP 5 cmH2O 09/18/21 21:15 IPAP 12 cmH2O 09/18/21 21:15 Sodium 137 mmol/L (135-145) 10/05/21 06:10 Potassium 3.9 mmol/L (3.5-5.0) 10/05/21 06:10 Chloride 114 mmol/L (101-111) H 10/05/21 06:10 Carbon Dioxide 19 mmol/L (21-32) L 10/05/21 06:10 Anion Gap 4.0 (6-13) L 10/05/21 06:10 BUN 14 mg/dL (6-20) 10/05/21 06:10 Creatinine 0.6 mg/dL (0.6-1.2) 10/05/21 06:10 Estimated GFR (MDRD) 132 (>89) 10/05/21 06:10 Glucose 88 mg/dL (70-100) 10/05/21 06:10 POC Whole Bld Glucose 121 mg/dL (70 - 100) H 10/02/21 00:07 Lactic Acid 1.9 mmol/L (0.5-2.2) 09/28/21 01:14 Calcium 7.4 mg/dL (8.5-10.3) L 10/05/21 06:10 Phosphorus 2.8 mg/dL (2.5-4.6) 10/02/21 06:10 Magnesium 1.9 mg/dL (1.7-2.8) 10/02/21 06:10 Total Bilirubin 0.3 mg/dL (0.2-1.0) 10/03/21 05:45 Direct Bilirubin 0.1 mg/dL (0.1-0.5) 10/03/21 05:45 AST 16 IU/L (10-42) 10/03/21 05:45 ALT 15 IU/L (10-60) 10/03/21 05:45 Alkaline Phosphatase 55 IU/L (42-121) 10/03/21 05:45 Troponin I High Sens 56.4 ng/L (2.3-19.7) H* 09/19/21 20:39 C-Reactive Protein 19.0 mg/dL (0-1.0) H 09/28/21 05:20 B-Natriuretic Peptide 149 pg/mL (5-100) H 09/18/21 20:50 Total Protein 3.9 g/dL (6.7-8.2) L 10/03/21 05:45 Albumin 1.0 g/dL (3.2-5.5) L 10/03/21 05:45 Globulin 2.9 g/dL (2.1-4.2) 10/03/21 05:45 Albumin/Globulin Ratio 0.4 (1.0-2.2) L 10/02/21 06:10 Prealbumin 10 mg/dL (18-45) L 10/02/21 06:10 Triglycerides 172 mg/dL (-149) H 10/02/21 06:10 Lipase 17 U/L (22-51) L 09/18/21 20:50 Vitamin B12 3949 pg/mL (180-914) H 10/05/21 06:10 Folate 10.52 ng/mL (5.90 - >24.8) 10/05/21 06:10 TSH 6.26 uIU/mL (0.34-5.60) H 09/26/21 12:30 Nasal Adenovirus (PCR) NOT DETECTED 09/18/21 21:15 Nasal B. parapertussis DNA (PCR) NOT DETECTED 09/18/21 21:15 Nasal Coronavir 229E PCR NOT DETECTED 09/18/21 21:15 Nasal Coronavir HKU1 PCR NOT DETECTED 09/18/21 21:15 Nasal Coronavir NL63 PCR NOT DETECTED 09/18/21 21:15 Nasal Coronavir OC43 PCR NOT DETECTED 09/18/21 21:15 Nasal Enterovir/Rhinovir PCR NOT DETECTED 09/18/21 21:15 Nasal Influenza B PCR NOT DETECTED 09/18/21 21:15 Nasal Influenza A PCR NOT DETECTED 09/18/21 21:15 Nasal Parainfluen 1 PCR NOT DETECTED 09/18/21 21:15 Nasal Parainfluen 2 PCR NOT DETECTED 09/18/21 21:15 Nasal Parainfluen 3 PCR NOT DETECTED 09/18/21 21:15 Nasal Parainfluen 4 PCR NOT DETECTED 09/18/21 21:15 Nasal RSV (PCR) NOT DETECTED 09/18/21 21:15 Nasal Screen MRSA (PCR) NEGATIVE (NEGATIVE) 09/18/21 23:50 Nasal B.pertussis DNA PCR NOT DETECTED 09/18/21 21:15 Nasal C.pneumoniae (PCR) NOT DETECTED 09/18/21 21:15 [place] Human Metapneumo PCR NOT DETECTED 09/18/21 21:15 Nasal M.pneumoniae (PCR) NOT DETECTED 09/18/21 21:15 Nasal SARS-CoV-2 (PCR) NOT DETECTED 09/18/21 21:15 Stl C. diff Tox B Gene NEGATIVE (NEGATIVE) 09/28/21 21:27 Last Dose Date 09/2009/21/21 05:25 Last Dose Time 1401 09/21/21 05:25 Digoxin 0.8 ng/mL 09/21/21 05:25 Ref Lab Test Result REPORT 09/22/21 01:55 - Procedures Procedures: Procedures EXCISION OF SIGMOID COLON, ENDO, DIAGN (06/17/21) ABX Reporting Has patient been on IV antibiotics over the past 48 hours?: No
[2021-10-06 08:17] LABS: BASOPHILS % (AUTO) 0.4 %; EOSINOPHILS % (AUTO) 0.7 %; HCT - HEMATOCRIT 27.5 % (42.0-52.0); HGB - HEMOGLOBIN 8.6 g/dL (14.0-18.0); LYMPHOCYTES # (AUTO) 0.8 10^3/uL (1.5-3.5); LYMPHOCYTES % (AUTO) 15.2 %; MEAN CORPUSCULAR HEMOGLOBIN 33.3 pg (27.0-31.0); MEAN CORPUSCULAR HGB CONC 31.3 g/dL (32.0-36.0); MEAN CORPUSCULAR VOLUME 106.6 fL (80.0-94.0); MEAN PLATELET VOLUME 9.7 fL (7.4-11.4); MONOCYTES # (AUTO) 0.3 10^3/uL (0.0-1.0); MONOCYTES % (AUTO) 6.2 %; NEUTROPHILS % (AUTO) 74.9 %; NRBC ABSOLUTE COUNT (AUTO) 0.02 x10^3/uL; NUCLEATED RED BLOOD CELLS AUTO 0.4 /100WBC; PLT - PLATELET COUNT 145 10^3/uL (130-450); RED BLOOD COUNT 2.58 10^6/uL (4.70-6.10); WHITE BLOOD COUNT 5.3 x10^3/uL (4.8-10.8)
[2021-10-06 08:24] LABS: CALCIUM 7.5 mg/dL (8.5-10.3); CREATININE 0.7 mg/dL (0.6-1.2); POTASSIUM 4.4 mmol/L (3.5-5.0)
[2021-10-06] MEDS: TAMSULOSIN 0.4 MG CAPSULE PO SCH (08:35)
[2021-10-06] MEDS: diltiaZEM CD 120 MG CAPSULE PO SCH (08:35)
[2021-10-06] MEDS: ENOXAPARIN 40 MG/0.4 ML SYRINGE SUBQ SCH (08:36)
[2021-10-06] MEDS: MAG HYDROX/AL HYDROX/SIMETH 30 ML UDC PO PRN ×2 (11:02→13:53)
[2021-10-06] MEDS: OLIVE IV SCH (19:23)
[2021-10-06] MEDS: FAT EMULSION IV SCH (19:23)
[2021-10-06] MEDS: PHOSPHO IV SCH (19:23)
[2021-10-06] MEDS: TPN (CLINIMIX E 5/15) 2,000 ML with MULTIVITAMIN 10 ML, TRACE ELEMENTS 1 ML, POTASSIUM ... IV SCH ×4 (19:23)
[2021-10-06] MEDS: SOY IV SCH (19:23)
[2021-10-06] MEDS: MIN OIL/DIMETHICON/COCONUT OIL 92 GM TUBE TOP PRN (23:44)
[2021-10-07] MEDS: PANTOPRAZOLE 40 MG TABLET PO SCH (06:24)
[2021-10-07 06:34] LABS: BASOPHILS % (AUTO) 0.2 %; EOSINOPHILS % (AUTO) 0.8 %; HCT - HEMATOCRIT 27.3 % (42.0-52.0); HGB - HEMOGLOBIN 8.7 g/dL (14.0-18.0); LYMPHOCYTES # (AUTO) 0.9 10^3/uL (1.5-3.5); MEAN CORPUSCULAR HGB CONC 31.9 g/dL (32.0-36.0); MEAN CORPUSCULAR VOLUME 103.4 fL (80.0-94.0); MONOCYTES # (AUTO) 0.4 10^3/uL (0.0-1.0); MONOCYTES % (AUTO) 8.5 %; NEUTROPHILS # (AUTO) 3.3 10^3/uL (1.5-6.6); PLT - PLATELET COUNT 154 10^3/uL (130-450); RED BLOOD COUNT 2.64 10^6/uL (4.70-6.10); RED CELL DISTRIBUTION WIDTH 18.6 % (12.0-15.0); WHITE BLOOD COUNT 4.8 x10^3/uL (4.8-10.8)
[2021-10-07 06:46] LABS: CALCIUM 7.3 mg/dL (8.5-10.3); CREATININE 0.6 mg/dL (0.6-1.2); POTASSIUM 3.9 mmol/L (3.5-5.0)
--- NOTE | 2021-10-07 07:39 | PROVIDER PROGRESS NOTE ---
Assessment/Plan - Problem List (1) Neutropenic colitis Assessment/Plan: Improved. NG tube had been discontinued. Diet advanced to soft diet today. It is anticipated that this could take weeks to resolve. Antibiotics discontinued October 04, 2021. Nutrition services working with patient. Patient may need TPN at time of discharge due to patient's inadequate nutrition as a result of ileus. Case management/social work/discharge coordinators working to facilitate the process of getting the patient to a facility that would potentially do TPN Patient is leaning towards/considering continuing rehab at [facility] (2) Chemotherapy-induced diarrhea Assessment/Plan: Improving. C. diff test was negative (3) Neutropenia Qualifiers: Neutropenia type: other Qualified Code(s): D70.8 - Other neutropenia Assessment/Plan: Resolved (4) SVT (supraventricular tachycardia) Assessment/Plan: Resolved (5) Adenocarcinoma of rectum, stage 3 Assessment/Plan: Patient to follow-up with his oncologist in the outpatient setting. (6) Metabolic acidosis with respiratory alkalosis Assessment/Plan: Resolved (3) Neutropenia Qualifiers: Neutropenia type: other Qualified Code(s): D70.8 - Other neutropenia - Current Meds Current Meds: Current Medications Generic Name Dose Route Start Last Admin Trade Name Freq PRN Reason Stop Dose Admin Acetaminophen 640 mg 10/01/21 11:28 10/05/21 11:51 Acetaminophen 160 Mg/5 Ml Susp Udc PO 320 mg Q4HR PRN Administration Pain 1 to 4 Al Hydroxide/Mg Hydroxide 30 ml 09/22/21 20:39 10/06/21 13:53 Mag Hydrox/Al Hydrox/Simeth 30 Ml Udc PO 30 ml Q4HR PRN Administration INDIGESTION Diltiazem HCl 120 mg 09/27/21 07:35 10/06/21 08:35 Diltiazem Cd 120 Mg Capsule PO 120 mg DAILY SPENCER Administration Enoxaparin Sodium 40 mg 09/19/21 09:00 10/06/21 08:36 Enoxaparin 40 Mg/0.4 Ml Syringe SUBQ 40 mg DAILY SPENCER Administration Heparin Sodium (Beef Lung) 30 - 50 unit 09/26/21 16:30 09/27/21 04:13 Heparin Flush 50 Units/5 Ml Syringe IVP 50 unit PRN PRN Administration Port Protocol (<24 hours) FAT EMULSION/OLIVE/SOY/PHOSPHO 50 gm in 250 mls @ 21 mls/hr 09/28/21 19:00 10/06/21 19:23 Clinolipid 20% Iv Fat Emulsion IV 21 mls/hr 1900 SPENCER Administration Sodium Chloride 500 mls @ 20 mls/hr 09/29/21 08:53 10/07/21 00:28 Normal Saline 0.9% IV 0 mls/hr Q24H PRN Infusion TKO RATE Multivitamins 10 ml/ TRACE 2,051 mls @ 83 mls/hr 10/01/21 19:00 10/06/21 19:23 ELEMENTS 1 ml/ Potassium IV 83 mls/hr Chloride 80 meq/ Amino Ac/ TPN/PPN SPENCER Administration Electrol/Dextrose/Calcium Lidocaine HCl 2 ml 10/03/21 15:01 10/06/21 23:44 Lidocaine Jelly 2% 6 Ml Jel.Pf.Thierry TOP 2 ml Q4H PRN Administration PAIN Mineral Oil 1 applic 09/19/21 16:51 10/06/21 23:44 Min Oil/Dimethicon/Coconut Oil 92 Gm Tube TOP 1 applic PRN PRN Administration Skin Care Morphine Sulfate 2 mg 09/18/21 22:41 09/27/21 17:57 Morphine 2 Mg/Ml Carpuject IVP 2 mg Q2HR PRN Administration Pain 8 to 10 Multi-Ingredient Ointment 1 applic 10/02/21 09:11 10/06/21 01:54 Zinc Oxide 20% Oint 30 Gm Tube TOP 1 applic PRN PRN Administration Skin Care Ondansetron HCl 4 mg 09/19/21 01:56 09/27/21 23:39 Ondansetron 4 Mg/2 Ml Vial IVP 4 mg Q4HR PRN Administration Nausea / Vomiting Oxycodone HCl 5 mg 09/18/21 22:41 09/19/21 16:40 Oxycodone 5 Mg Tablet PO 5 mg Q4HR PRN Administration Pain 5 to 7 Pantoprazole Sodium 40 mg 09/27/21 07:00 10/07/21 06:24 Pantoprazole 40 Mg Tablet PO 40 mg QDAC SPENCER Administration Psyllium Hydrophilic Mucilloid 1 packet 09/30/21 10:44 09/30/21 14:09 Psyllium Packet PO 1 packet DAILY PRN Administration Constipation Sodium Chloride 10 ml 09/19/21 01:00 10/06/21 23:44 Sodium Chloride Flush 0.9% 10 Ml Syringe IVP 10 ml 0100,0900,1700 SPENCER Administration Sodium Chloride 10 ml 09/18/21 22:41 10/02/21 12:00 Sodium Chloride Flush 0.9% 10 Ml Syringe IVP 10 ml PRN PRN Administration NEEDED PER PROVIDER ORDERS Tamsulosin HCl 0.4 mg 10/01/21 09:00 10/06/21 08:35 Tamsulosin 0.4 Mg Capsule PO 0.4 mg DAILY SPENCER Administration - Lab Result Fish Bone Diagrams: 10/07/21 06:02 10/07/21 06:02 - Additional Planning My Orders: My Active Orders 10/06/21 Dinner Soft (Low Fiber) Diet [DIET] 10/08/21 05:00 BMP - BASIC METABOLIC PANEL [CHEM] DAILYLAB CBC - COMP BLD CT W/AUTO DIFF [HEME] DAILYLAB 10/09/21 05:00 BMP - BASIC METABOLIC PANEL [CHEM] DAILYLAB CBC - COMP BLD CT W/AUTO DIFF [HEME] DAILYLAB 10/10/21 05:00 BMP - BASIC METABOLIC PANEL [CHEM] DAILYLAB CBC - COMP BLD CT W/AUTO DIFF [HEME] DAILYLAB 10/11/21 05:00 BMP - BASIC METABOLIC PANEL [CHEM] DAILYLAB CBC - COMP BLD CT W/AUTO DIFF [HEME] DAILYLAB Subjective - Subjective Patient Reports: Other (Patient was resting in bed at time of exam. Complaint cough some abdominal discomfort after eating breakfast. Reported abdominal cramps. Denied vomiting. Had an episode of diarrhea this morning.) Objective Vital Signs: Vital Signs - 24 hr 10/06/21 10/06/21 10/06/21 07:41 12:12 16:41 Temperature 36.8 C 36.4 C L 36.4 C L Heart Rate [ 66 99 90 Brachial] Heart Rate [ Monitoring electrodes] Respiratory 20 18 19 Rate Blood Pressure 111/58 L 100/52 L 110/54 L [Right Brachial artery] O2 Saturation 98 98 100 10/06/21 10/06/21 10/07/21 19:53 23:30 03:09 Temperature 36.4 C L 36.6 C 36.3 C L Heart Rate [ 87 93 Brachial] Heart Rate [ 86 Monitoring electrodes] Respiratory 18 16 18 Rate Blood Pressure 106/51 L 110/54 L 112/54 L [Right Brachial artery] O2 Saturation 100 100 98 Oxygen O2 Source Room air I&O (Last 24 Hrs): Intake and Output Totals x24h 10/05/21 10/06/21 10/07/21 23:59 23:59 23:59 Intake Total 2732.383 3353.067 351.333 Output Total 1950 2500 1175 Balance 782.383 853.067 -823.667 General: Alert, Oriented x3, Mild distress HEENT: PERRLA, EOMI Neck: Supple, No JVD Neuro: Alert, Non Focal, Oriented Times 3 Cardiovascular: Regular rate, No murmurs Respiratory: Chest non-tender, No respiratory distress, Breath sounds nml Abdomen: Normal bowel sounds, Soft, Other (Mild discomfort) Extremities: No clubbing, No cyanosis, No edema, No tenderness/swelling Skin: No rashes, No breakdown, No significant lesion - Results Results: Laboratory Results WBC 4.8 x10^3/uL (4.8-10.8) 10/07/21 06:02 RBC 2.64 10^6/uL (4.70-6.10) L 10/07/21 06:02 Hgb 8.7 g/dL (14.0-18.0) L 10/07/21 06:02 Hct 27.3 % (42.0-52.0) L 10/07/21 06:02 MCV 103.4 fL (80.0-94.0) H 10/07/21 06:02 MCH 33.0 pg (27.0-31.0) H 10/07/21 06:02 MCHC 31.9 g/dL (32.0-36.0) L 10/07/21 06:02 RDW 18.6 % (12.0-15.0) H 10/07/21 06:02 Plt Count 154 10^3/uL (130-450) 10/07/21 06:02 MPV 10.0 fL (7.4-11.4) 10/07/21 06:02 Neut # (Auto) 3.3 10^3/uL (1.5-6.6) 10/07/21 06:02 Lymph # (Auto) 0.9 10^3/uL (1.5-3.5) L 10/07/21 06:02 [place] # (Auto) 0.4 10^3/uL (0.0-1.0) 10/07/21 06:02 Eos # (Auto) 0.0 10^3/uL (0.0-0.7) 10/07/21 06:02 Baso # (Auto) 0.0 10^3/uL (0.0-0.1) 10/07/21 06:02 Absolute Nucleated RBC 0.00 x10^3/uL 10/07/21 06:02 Total Counted 100 10/03/21 05:45 Band Neuts % (Manual) 2 % (0-10) 10/03/21 05:45 Abnorm Lymph % (Manual) 0 % 10/03/21 05:45 Metamyelocytes % 1 % (-0) H 09/23/21 04:15 Myelocytes % 1 % (-0) H 09/29/21 04:55 Nucleated RBC % 0.0 /100WBC 10/07/21 06:02 Neutrophils # (Manual) 3.7 10^3/uL (1.5-6.6) 10/03/21 05:45 Lymphocytes # (Manual) 0.8 10^3/uL (1.5-3.5) L 10/03/21 05:45 Monocytes # (Manual) 0.2 10^3/uL (0.0-1.0) 10/03/21 05:45 Eosinophils # (Manual) 0.0 10^3/uL (0-0.7) 10/03/21 05:45 Basophils # (Manual) 0.0 10^3/uL (0-0.1) 10/03/21 05:45 Nucleated RBCs 2 % 09/27/21 14:23 Differential Comment MANUAL DIFFERENTIAL 10/03/21 05:45 Manual Slide Review Indicated 09/24/21 09:11 WBC Morphology NORMAL APPEARANCE (NORMAL) 10/03/21 05:45 Platelet Estimate NORMAL (130-450,000) (NORMAL) 10/03/21 05:45 Platelet Morphology NORMAL APPEARANCE (NORMAL) 10/03/21 05:45 RBC Morph Micro Appear 1+ MACROCYTOSIS (NORMAL) 1+ ANISOCYTOSIS (NORMAL) 10/03/21 05:45 RBC Morph Micro Appear 1+ MACROCYTOSIS (NORMAL) 1+ ANISOCYTOSIS (NORMAL) 10/03/21 05:45 D-Dimer 925.3 ng/mL (200.0-255.0) H 09/18/21 20:50 Bld Gas Analysis Time 1212 09/20/21 12:00 Sample Site RIGHT RADIAL 09/20/21 12:00 ABG pH 7.43 (7.35-7.45) 09/20/21 12:00 ABG pCO2 23 mmHg (34-45) L* 09/20/21 12:00 ABG pO2 84 mmHg (80-100) 09/20/21 12:00 ABG HCO3 14.6 mmol/L (22.0-26.0) L 09/20/21 12:00 ABG Total CO2 15.3 MMOL/L (21.0-29.0) L 09/20/21 12:00 ABG O2 Saturation 97 % (94-98) 09/20/21 12:00 ABG Base Excess -7.8 mmol/L (-2.0-3.0) L 09/20/21 12:00 Pineda Test POSITIVE 09/20/21 12:00 VBG pH 7.526 (7.31-7.41) H 10/01/21 15:36 VBG pCO2 18.3 mmHg (41-51) L 10/01/21 15:36 VBG pO2 52.7 mmHg (25-47) H 10/01/21 15:36 VBG HCO3 14.8 mmol/L (23-28) L 10/01/21 15:36 VBG Total CO2 15.4 mmol/L (24-29) L 10/01/21 15:36 VBG O2 Saturation 91.6 % (60-80) H 10/01/21 15:36 VBG Base Excess -5.9 mmol/L (-2 - +2) L 10/01/21 15:36 Ionized Calcium 1.09 mmol/L (1.15-1.33) L 09/26/21 04:11 Room Air YES 09/20/21 12:00 O2 Delivery Device BiPAP 09/18/21 21:15 FiO2 100.00 09/18/21 21:15 EPAP 5 cmH2O 09/18/21 21:15 IPAP 12 cmH2O 09/18/21 21:15 Sodium 134 mmol/L (135-145) L 10/07/21 06:02 Potassium 3.9 mmol/L (3.5-5.0) 10/07/21 06:02 Chloride 107 mmol/L (101-111) 10/07/21 06:02 Carbon Dioxide 20 mmol/L (21-32) L 10/07/21 06:02 Anion Gap 7.0 (6-13) 10/07/21 06:02 BUN 14 mg/dL (6-20) 10/07/21 06:02 Creatinine 0.6 mg/dL (0.6-1.2) 10/07/21 06:02 Estimated GFR (MDRD) 132 (>89) 10/07/21 06:02 Glucose 83 mg/dL (70-100) 10/07/21 06:02 POC Whole Bld Glucose 121 mg/dL (70 - 100) H 10/02/21 00:07 Lactic Acid 1.9 mmol/L (0.5-2.2) 09/28/21 01:14 Calcium 7.3 mg/dL (8.5-10.3) L 10/07/21 06:02 Phosphorus 2.8 mg/dL (2.5-4.6) 10/02/21 06:10 Magnesium 1.9 mg/dL (1.7-2.8) 10/02/21 06:10 Total Bilirubin 0.3 mg/dL (0.2-1.0) 10/03/21 05:45 Direct Bilirubin 0.1 mg/dL (0.1-0.5) 10/03/21 05:45 AST 16 IU/L (10-42) 10/03/21 05:45 ALT 15 IU/L (10-60) 10/03/21 05:45 Alkaline Phosphatase 55 IU/L (42-121) 10/03/21 05:45 Troponin I High Sens 56.4 ng/L (2.3-19.7) H* 09/19/21 20:39 C-Reactive Protein 19.0 mg/dL (0-1.0) H 09/28/21 05:20 B-Natriuretic Peptide 149 pg/mL (5-100) H 09/18/21 20:50 Total Protein 3.9 g/dL (6.7-8.2) L 10/03/21 05:45 Albumin 1.0 g/dL (3.2-5.5) L 10/03/21 05:45 Globulin 2.9 g/dL (2.1-4.2) 10/03/21 05:45 Albumin/Globulin Ratio 0.4 (1.0-2.2) L 10/02/21 06:10 Prealbumin 10 mg/dL (18-45) L 10/02/21 06:10 Triglycerides 172 mg/dL (-149) H 10/02/21 06:10 Lipase 17 U/L (22-51) L 09/18/21 20:50 Vitamin B12 3949 pg/mL (180-914) H 10/05/21 06:10 Folate 10.52 ng/mL (5.90 - >24.8) 10/05/21 06:10 TSH 6.26 uIU/mL (0.34-5.60) H 09/26/21 12:30 Nasal Adenovirus (PCR) NOT DETECTED 09/18/21 21:15 Nasal B. parapertussis DNA (PCR) NOT DETECTED 09/18/21 21:15 Nasal Coronavir 229E PCR NOT DETECTED 09/18/21 21:15 Nasal Coronavir HKU1 PCR NOT DETECTED 09/18/21 21:15 Nasal Coronavir NL63 PCR NOT DETECTED 09/18/21 21:15 Nasal Coronavir OC43 PCR NOT DETECTED 09/18/21 21:15 Nasal Enterovir/Rhinovir PCR NOT DETECTED 09/18/21 21:15 Nasal Influenza B PCR NOT DETECTED 09/18/21 21:15 Nasal Influenza A PCR NOT DETECTED 09/18/21 21:15 Nasal Parainfluen 1 PCR NOT DETECTED 09/18/21 21:15 Nasal Parainfluen 2 PCR NOT DETECTED 09/18/21 21:15 Nasal Parainfluen 3 PCR NOT DETECTED 09/18/21 21:15 Nasal Parainfluen 4 PCR NOT DETECTED 09/18/21 21:15 Nasal RSV (PCR) NOT DETECTED 09/18/21 21:15 Nasal Screen MRSA (PCR) NEGATIVE (NEGATIVE) 09/18/21 23:50 Nasal B.pertussis DNA PCR NOT DETECTED 09/18/21 21:15 Nasal C.pneumoniae (PCR) NOT DETECTED 09/18/21 21:15 Sohail Human Metapneumo PCR NOT DETECTED 09/18/21 21:15 Nasal M.pneumoniae (PCR) NOT DETECTED 09/18/21 21:15 Nasal SARS-CoV-2 (PCR) NOT DETECTED 09/18/21 21:15 Stl C. diff Tox B Gene NEGATIVE (NEGATIVE) 09/28/21 21:27 Last Dose Date 09/2009/21/21 05:25 Last Dose Time 1401 09/21/21 05:25 Digoxin 0.8 ng/mL 09/21/21 05:25 Ref Lab Test Result REPORT 09/22/21 01:55 - Procedures Procedures: Procedures EXCISION OF SIGMOID COLON, ENDO, DIAGN (06/17/21) ABX Reporting Has patient been on IV antibiotics over the past 48 hours?: No
[2021-10-07] MEDS: TAMSULOSIN 0.4 MG CAPSULE PO SCH (07:55)
[2021-10-07] MEDS: diltiaZEM CD 120 MG CAPSULE PO SCH (07:56)
[2021-10-07] MEDS: ENOXAPARIN 40 MG/0.4 ML SYRINGE SUBQ SCH (07:56)
[2021-10-07] MEDS: SODIUM CHLORIDE FLUSH 0.9% 10 ML SYRINGE IVP SCH ×3 (07:56→23:37)
[2021-10-07] MEDS: MAG HYDROX/AL HYDROX/SIMETH 30 ML UDC PO PRN (11:13)
[2021-10-07] MEDS: ACETAMINOPHEN 160 MG/5 ML SUSP UDC PO PRN (13:30)
[2021-10-07] MEDS: TPN (CLINIMIX E 5/15) 2,000 ML with MULTIVITAMIN 10 ML, TRACE ELEMENTS 1 ML, POTASSIUM ... IV SCH ×4 (18:43)
[2021-10-07] MEDS: FAT EMULSION IV SCH (18:44)
[2021-10-07] MEDS: OLIVE IV SCH (18:44)
[2021-10-07] MEDS: SOY IV SCH (18:44)
[2021-10-07] MEDS: PHOSPHO IV SCH (18:44)
[2021-10-07] MEDS: ZINC OXIDE 20% OINT 30 GM TUBE TOP PRN (20:17)
[2021-10-08] MEDS: PANTOPRAZOLE 40 MG TABLET PO SCH (06:05)
[2021-10-08 06:16] LABS: BASOPHILS % (AUTO) 0.4 %; EOSINOPHILS # (AUTO) 0.1 10^3/uL (0.0-0.7); EOSINOPHILS % (AUTO) 1.3 %; HCT - HEMATOCRIT 26.1 % (42.0-52.0); HGB - HEMOGLOBIN 8.2 g/dL (14.0-18.0); LYMPHOCYTES # (AUTO) 0.9 10^3/uL (1.5-3.5); LYMPHOCYTES % (AUTO) 17.3 %; MEAN CORPUSCULAR HEMOGLOBIN 33.1 pg (27.0-31.0); MEAN CORPUSCULAR HGB CONC 31.4 g/dL (32.0-36.0); MEAN CORPUSCULAR VOLUME 105.2 fL (80.0-94.0); MEAN PLATELET VOLUME 9.9 fL (7.4-11.4); MONOCYTES # (AUTO) 0.4 10^3/uL (0.0-1.0); NEUTROPHILS # (AUTO) 3.9 10^3/uL (1.5-6.6); NEUTROPHILS % (AUTO) 71.6 %; PLT - PLATELET COUNT 162 10^3/uL (130-450); RED BLOOD COUNT 2.48 10^6/uL (4.70-6.10); RED CELL DISTRIBUTION WIDTH 18.7 % (12.0-15.0); WHITE BLOOD COUNT 5.4 x10^3/uL (4.8-10.8)
[2021-10-08 06:26] LABS: CALCIUM 7.3 mg/dL (8.5-10.3); CREATININE 0.6 mg/dL (0.6-1.2); POTASSIUM 3.8 mmol/L (3.5-5.0)
[2021-10-08] MEDS: ENOXAPARIN 40 MG/0.4 ML SYRINGE SUBQ SCH (08:20)
[2021-10-08] MEDS: TAMSULOSIN 0.4 MG CAPSULE PO SCH (08:20)
[2021-10-08] MEDS: diltiaZEM CD 120 MG CAPSULE PO SCH (08:20)
[2021-10-08] MEDS: SODIUM CHLORIDE FLUSH 0.9% 10 ML SYRINGE IVP SCH ×2 (08:21→16:36)
--- NOTE | 2021-10-08 10:56 | PROVIDER PROGRESS NOTE ---
Assessment/Plan - Problem List (1) Neutropenic colitis Assessment/Plan: Tolerated diet breakfast and lunch well This being the case, will discontinue TPN Social work to facilitate placement in a rehab facility (2) Chemotherapy-induced diarrhea Assessment/Plan: Improving. C. diff test was negative Imodium 2mg qid prn ordered (3) Neutropenia Qualifiers: Neutropenia type: other Qualified Code(s): D70.8 - Other neutropenia Assessment/Plan: Resolved (4) SVT (supraventricular tachycardia) Assessment/Plan: Resolved (5) Adenocarcinoma of rectum, stage 3 Assessment/Plan: Patient to follow-up with his oncologist in the outpatient setting. (6) Metabolic acidosis with respiratory alkalosis Assessment/Plan: Resolved - Current Meds Current Meds: Current Medications Generic Name Dose Route Start Last Admin Trade Name Freq PRN Reason Stop Dose Admin Al Hydroxide/Mg Hydroxide 30 ml 09/22/21 20:39 10/07/21 11:13 Mag Hydrox/Al Hydrox/Simeth 30 Ml Udc PO 30 ml Q4HR PRN Administration INDIGESTION Diltiazem HCl 120 mg 09/27/21 07:35 10/08/21 08:20 Diltiazem Cd 120 Mg Capsule PO 120 mg DAILY SPENCER Administration Enoxaparin Sodium 40 mg 09/19/21 09:00 10/08/21 08:20 Enoxaparin 40 Mg/0.4 Ml Syringe SUBQ 40 mg DAILY SPENCRE Administration Heparin Sodium (Beef Lung) 30 - 50 unit 09/26/21 16:30 09/27/21 04:13 Heparin Flush 50 Units/5 Ml Syringe IVP 50 unit PRN PRN Administration Port Protocol (<24 hours) FAT EMULSION/OLIVE/SOY/PHOSPHO 50 gm in 250 mls @ 21 mls/hr 09/28/21 19:00 10/08/21 06:56 Clinolipid 20% Iv Fat Emulsion IV Infused 1900 SPENCER Infusion Sodium Chloride 500 mls @ 20 mls/hr 09/29/21 08:53 10/07/21 13:00 Normal Saline 0.9% IV Infused Q24H PRN Infusion TKO RATE Multivitamins 10 ml/ TRACE 2,051 mls @ 83 mls/hr 10/01/21 19:00 10/07/21 18:43 ELEMENTS 1 ml/ Potassium IV 83 mls/hr Chloride 80 meq/ Amino Ac/ TPN/PPN SPENCER Administration Electrol/Dextrose/Calcium Lidocaine HCl 2 ml 10/03/21 15:01 10/06/21 23:44 Lidocaine Jelly 2% 6 Ml Jel.Pf.Thierry TOP 2 ml Q4H PRN Administration PAIN Mineral Oil 1 applic 09/19/21 16:51 10/06/21 23:44 Min Oil/Dimethicon/Coconut Oil 92 Gm Tube TOP 1 applic PRN PRN Administration Skin Care Morphine Sulfate 2 mg 09/18/21 22:41 09/27/21 17:57 Morphine 2 Mg/Ml Carpuject IVP 2 mg Q2HR PRN Administration Pain 8 to 10 Multi-Ingredient Ointment 1 applic 10/02/21 09:11 10/07/21 20:17 Zinc Oxide 20% Oint 30 Gm Tube TOP 1 applic PRN PRN Administration Skin Care Ondansetron HCl 4 mg 09/19/21 01:56 09/27/21 23:39 Ondansetron 4 Mg/2 Ml Vial IVP 4 mg Q4HR PRN Administration Nausea / Vomiting Oxycodone HCl 5 mg 09/18/21 22:41 09/19/21 16:40 Oxycodone 5 Mg Tablet PO 5 mg Q4HR PRN Administration Pain 5 to 7 Pantoprazole Sodium 40 mg 09/27/21 07:00 10/08/21 06:05 Pantoprazole 40 Mg Tablet PO 40 mg QDAC SPENCER Administration Psyllium Hydrophilic Mucilloid 1 packet 09/30/21 10:44 09/30/21 14:09 Psyllium Packet PO 1 packet DAILY PRN Administration Constipation Sodium Chloride 10 ml 09/19/21 01:00 10/08/21 08:21 Sodium Chloride Flush 0.9% 10 Ml Syringe IVP 10 ml 0100,0900,1700 SPENCER Administration Sodium Chloride 10 ml 09/18/21 22:41 10/02/21 12:00 Sodium Chloride Flush 0.9% 10 Ml Syringe IVP 10 ml PRN PRN Administration NEEDED PER PROVIDER ORDERS Tamsulosin HCl 0.4 mg 10/01/21 09:00 10/08/21 08:20 Tamsulosin 0.4 Mg Capsule PO 0.4 mg DAILY SPENCER Administration - Lab Result Fish Bone Diagrams: 10/08/21 05:19 10/08/21 05:19 - Additional Planning My Orders: My Active Orders 10/09/21 05:00 BMP - BASIC METABOLIC PANEL [CHEM] DAILYLAB CBC - COMP BLD CT W/AUTO DIFF [HEME] DAILYLAB 10/10/21 05:00 BMP - BASIC METABOLIC PANEL [CHEM] DAILYLAB CBC - COMP BLD CT W/AUTO DIFF [HEME] DAILYLAB 10/11/21 05:00 BMP - BASIC METABOLIC PANEL [CHEM] DAILYLAB CBC - COMP BLD CT W/AUTO DIFF [HEME] DAILYLAB Subjective - Subjective Patient Reports: Other (Resting comfortably in bedside recliner. Denies any significant complains. Tolerated breakfast and lunch well. Ambulated in room using walker) Objective Vital Signs: Vital Signs - 24 hr 10/07/21 10/07/21 10/07/21 13:00 16:54 20:09 Temperature 36.3 C L 36.5 C 36.6 C Heart Rate [ 94 99 92 Brachial] Respiratory 24 24 24 Rate Blood Pressure 113/56 L 108/51 L 102/52 L [Right Brachial artery] O2 Saturation 98 96 98 10/07/21 10/08/21 10/08/21 23:36 04:29 08:03 Temperature 36.5 C 36.8 C 36.6 C Heart Rate [ 95 89 95 Brachial] Respiratory 16 16 17 Rate Blood Pressure 112/54 L 99/52 L 106/55 L [Right Brachial artery] O2 Saturation 98 98 96 Oxygen O2 Source Room air I&O (Last 24 Hrs): Intake and Output Totals x24h 10/06/21 10/07/21 10/08/21 23:59 23:59 23:59 Intake Total 3353.067 3494.000 970 Output Total 2500 2525 1350 Balance 853.067 969.000 -380 General: Alert, Oriented x3, Mild distress HEENT: PERRLA, EOMI Neck: Supple, No JVD Neuro: Alert, Oriented Times 3 Cardiovascular: Regular rate Respiratory: Chest non-tender, No respiratory distress, Breath sounds nml Abdomen: Soft, No tenderness, Other (Hyper resonant bowel sounds) Extremities: No clubbing, No cyanosis, No edema, No tenderness/swelling Skin: No rashes, No breakdown, No significant lesion - Results Results: Laboratory Results WBC 5.4 x10^3/uL (4.8-10.8) 10/08/21 05:19 RBC 2.48 10^6/uL (4.70-6.10) L 10/08/21 05:19 Hgb 8.2 g/dL (14.0-18.0) L 10/08/21 05:19 Hct 26.1 % (42.0-52.0) L 10/08/21 05:19 MCV 105.2 fL (80.0-94.0) H 10/08/21 05:19 MCH 33.1 pg (27.0-31.0) H 10/08/21 05:19 MCHC 31.4 g/dL (32.0-36.0) L 10/08/21 05:19 RDW 18.7 % (12.0-15.0) H 10/08/21 05:19 Plt Count 162 10^3/uL (130-450) 10/08/21 05:19 MPV 9.9 fL (7.4-11.4) 10/08/21 05:19 Neut # (Auto) 3.9 10^3/uL (1.5-6.6) 10/08/21 05:19 Lymph # (Auto) 0.9 10^3/uL (1.5-3.5) L 10/08/21 05:19 [place] # (Auto) 0.4 10^3/uL (0.0-1.0) 10/08/21 05:19 Eos # (Auto) 0.1 10^3/uL (0.0-0.7) 10/08/21 05:19 Baso # (Auto) 0.0 10^3/uL (0.0-0.1) 10/08/21 05:19 Absolute Nucleated RBC 0.00 x10^3/uL 10/08/21 05:19 Total Counted 100 10/03/21 05:45 Band Neuts % (Manual) 2 % (0-10) 10/03/21 05:45 Abnorm Lymph % (Manual) 0 % 10/03/21 05:45 Metamyelocytes % 1 % (-0) H 09/23/21 04:15 Myelocytes % 1 % (-0) H 09/29/21 04:55 Nucleated RBC % 0.0 /100WBC 10/08/21 05:19 Neutrophils # (Manual) 3.7 10^3/uL (1.5-6.6) 10/03/21 05:45 Lymphocytes # (Manual) 0.8 10^3/uL (1.5-3.5) L 10/03/21 05:45 Monocytes # (Manual) 0.2 10^3/uL (0.0-1.0) 10/03/21 05:45 Eosinophils # (Manual) 0.0 10^3/uL (0-0.7) 10/03/21 05:45 Basophils # (Manual) 0.0 10^3/uL (0-0.1) 10/03/21 05:45 Nucleated RBCs 2 % 09/27/21 14:23 Differential Comment MANUAL DIFFERENTIAL 10/03/21 05:45 Manual Slide Review Indicated 09/24/21 09:11 WBC Morphology NORMAL APPEARANCE (NORMAL) 10/03/21 05:45 Platelet Estimate NORMAL (130-450,000) (NORMAL) 10/03/21 05:45 Platelet Morphology NORMAL APPEARANCE (NORMAL) 10/03/21 05:45 RBC Morph Micro Appear 1+ MACROCYTOSIS (NORMAL) 1+ ANISOCYTOSIS (NORMAL) 10/03/21 05:45 RBC Morph Micro Appear 1+ MACROCYTOSIS (NORMAL) 1+ ANISOCYTOSIS (NORMAL) 10/03/21 05:45 D-Dimer 925.3 ng/mL (200.0-255.0) H 09/18/21 20:50 Bld Gas Analysis Time 1212 09/20/21 12:00 Sample Site RIGHT RADIAL 09/20/21 12:00 ABG pH 7.43 (7.35-7.45) 09/20/21 12:00 ABG pCO2 23 mmHg (34-45) L* 09/20/21 12:00 ABG pO2 84 mmHg (80-100) 09/20/21 12:00 ABG HCO3 14.6 mmol/L (22.0-26.0) L 09/20/21 12:00 ABG Total CO2 15.3 MMOL/L (21.0-29.0) L 09/20/21 12:00 ABG O2 Saturation 97 % (94-98) 09/20/21 12:00 ABG Base Excess -7.8 mmol/L (-2.0-3.0) L 09/20/21 12:00 Pineda Test POSITIVE 09/20/21 12:00 VBG pH 7.526 (7.31-7.41) H 10/01/21 15:36 VBG pCO2 18.3 mmHg (41-51) L 10/01/21 15:36 VBG pO2 52.7 mmHg (25-47) H 10/01/21 15:36 VBG HCO3 14.8 mmol/L (23-28) L 10/01/21 15:36 VBG Total CO2 15.4 mmol/L (24-29) L 10/01/21 15:36 VBG O2 Saturation 91.6 % (60-80) H 10/01/21 15:36 VBG Base Excess -5.9 mmol/L (-2 - +2) L 10/01/21 15:36 Ionized Calcium 1.09 mmol/L (1.15-1.33) L 09/26/21 04:11 Room Air YES 09/20/21 12:00 O2 Delivery Device BiPAP 09/18/21 21:15 FiO2 100.00 09/18/21 21:15 EPAP 5 cmH2O 09/18/21 21:15 IPAP 12 cmH2O 09/18/21 21:15 Sodium 133 mmol/L (135-145) L 10/08/21 05:19 Potassium 3.8 mmol/L (3.5-5.0) 10/08/21 05:19 Chloride 105 mmol/L (101-111) 10/08/21 05:19 Carbon Dioxide 21 mmol/L (21-32) 10/08/21 05:19 Anion Gap 7.0 (6-13) 10/08/21 05:19 BUN 15 mg/dL (6-20) 10/08/21 05:19 Creatinine 0.6 mg/dL (0.6-1.2) 10/08/21 05:19 Estimated GFR (MDRD) 132 (>89) 10/08/21 05:19 Glucose 94 mg/dL (70-100) 10/08/21 05:19 POC Whole Bld Glucose 121 mg/dL (70 - 100) H 10/02/21 00:07 Lactic Acid 1.9 mmol/L (0.5-2.2) 09/28/21 01:14 Calcium 7.3 mg/dL (8.5-10.3) L 10/08/21 05:19 Phosphorus 2.8 mg/dL (2.5-4.6) 10/02/21 06:10 Magnesium 1.9 mg/dL (1.7-2.8) 10/02/21 06:10 Total Bilirubin 0.3 mg/dL (0.2-1.0) 10/03/21 05:45 Direct Bilirubin 0.1 mg/dL (0.1-0.5) 10/03/21 05:45 AST 16 IU/L (10-42) 10/03/21 05:45 ALT 15 IU/L (10-60) 10/03/21 05:45 Alkaline Phosphatase 55 IU/L (42-121) 10/03/21 05:45 Troponin I High Sens 56.4 ng/L (2.3-19.7) H* 09/19/21 20:39 C-Reactive Protein 19.0 mg/dL (0-1.0) H 09/28/21 05:20 B-Natriuretic Peptide 149 pg/mL (5-100) H 09/18/21 20:50 Total Protein 3.9 g/dL (6.7-8.2) L 10/03/21 05:45 Albumin 1.0 g/dL (3.2-5.5) L 10/03/21 05:45 Globulin 2.9 g/dL (2.1-4.2) 10/03/21 05:45 Albumin/Globulin Ratio 0.4 (1.0-2.2) L 10/02/21 06:10 Prealbumin 10 mg/dL (18-45) L 10/02/21 06:10 Triglycerides 172 mg/dL (-149) H 10/02/21 06:10 Lipase 17 U/L (22-51) L 09/18/21 20:50 Vitamin B12 3949 pg/mL (180-914) H 10/05/21 06:10 Folate 10.52 ng/mL (5.90 - >24.8) 10/05/21 06:10 TSH 6.26 uIU/mL (0.34-5.60) H 09/26/21 12:30 Nasal Adenovirus (PCR) NOT DETECTED 09/18/21 21:15 Nasal B. parapertussis DNA (PCR) NOT DETECTED 09/18/21 21:15 Nasal Coronavir 229E PCR NOT DETECTED 09/18/21 21:15 Nasal Coronavir HKU1 PCR NOT DETECTED 09/18/21 21:15 Nasal Coronavir NL63 PCR NOT DETECTED 09/18/21 21:15 Nasal Coronavir OC43 PCR NOT DETECTED 09/18/21 21:15 Nasal Enterovir/Rhinovir PCR NOT DETECTED 09/18/21 21:15 Nasal Influenza B PCR NOT DETECTED 09/18/21 21:15 Nasal Influenza A PCR NOT DETECTED 09/18/21 21:15 Nasal Parainfluen 1 PCR NOT DETECTED 09/18/21 21:15 Nasal Parainfluen 2 PCR NOT DETECTED 09/18/21 21:15 Nasal Parainfluen 3 PCR NOT DETECTED 09/18/21 21:15 Nasal Parainfluen 4 PCR NOT DETECTED 09/18/21 21:15 Nasal RSV (PCR) NOT DETECTED 09/18/21 21:15 Nasal Screen MRSA (PCR) NEGATIVE (NEGATIVE) 09/18/21 23:50 Nasal B.pertussis DNA PCR NOT DETECTED 09/18/21 21:15 Nasal C.pneumoniae (PCR) NOT DETECTED 09/18/21 21:15 Sohail Human Metapneumo PCR NOT DETECTED 09/18/21 21:15 Nasal M.pneumoniae (PCR) NOT DETECTED 09/18/21 21:15 Nasal SARS-CoV-2 (PCR) NOT DETECTED 09/18/21 21:15 Stl C. diff Tox B Gene NEGATIVE (NEGATIVE) 09/28/21 21:27 Last Dose Date 09/2009/21/21 05:25 Last Dose Time 1401 09/21/21 05:25 Digoxin 0.8 ng/mL 09/21/21 05:25 Ref Lab Test Result REPORT 09/22/21 01:55 - Procedures Procedures: Procedures EXCISION OF SIGMOID COLON, ENDO, DIAGN (06/17/21) ABX Reporting Has patient been on IV antibiotics over the past 48 hours?: No
[2021-10-08] MEDS: MAG HYDROX/AL HYDROX/SIMETH 30 ML UDC PO PRN ×2 (13:33→20:51)
[2021-10-08] MEDS: LOPERAMIDE 2 MG CAPSULE PO PRN ×2 (15:35→20:51)
[2021-10-08] MEDS: ZINC OXIDE 20% OINT 30 GM TUBE TOP PRN (20:52)
[2021-10-09] MEDS: SODIUM CHLORIDE FLUSH 0.9% 10 ML SYRINGE IVP SCH ×3 (02:44→19:01)
[2021-10-09] MEDS: LOPERAMIDE 2 MG CAPSULE PO PRN ×2 (02:44→21:33)
[2021-10-09] MEDS: ZINC OXIDE 20% OINT 30 GM TUBE TOP PRN ×2 (02:47→09:02)
[2021-10-09] MEDS: PANTOPRAZOLE 40 MG TABLET PO SCH (06:01)
[2021-10-09 06:06] LABS: BASOPHILS % (AUTO) 0.3 %; EOSINOPHILS # (AUTO) 0.1 10^3/uL (0.0-0.7); EOSINOPHILS % (AUTO) 1.1 %; HCT - HEMATOCRIT 29.2 % (42.0-52.0); LYMPHOCYTES # (AUTO) 0.8 10^3/uL (1.5-3.5); LYMPHOCYTES % (AUTO) 12.5 %; MEAN CORPUSCULAR HEMOGLOBIN 32.8 pg (27.0-31.0); MEAN CORPUSCULAR HGB CONC 30.8 g/dL (32.0-36.0); MEAN CORPUSCULAR VOLUME 106.6 fL (80.0-94.0); MEAN PLATELET VOLUME 9.6 fL (7.4-11.4); MONOCYTES # (AUTO) 0.4 10^3/uL (0.0-1.0); MONOCYTES % (AUTO) 5.5 %; NEUTROPHILS # (AUTO) 5.2 10^3/uL (1.5-6.6); NEUTROPHILS % (AUTO) 79.2 %; PLT - PLATELET COUNT 185 10^3/uL (130-450); RED BLOOD COUNT 2.74 10^6/uL (4.70-6.10); RED CELL DISTRIBUTION WIDTH 18.6 % (12.0-15.0); WHITE BLOOD COUNT 6.6 x10^3/uL (4.8-10.8)
[2021-10-09 06:16] LABS: CALCIUM 7.5 mg/dL (8.5-10.3); CREATININE 0.7 mg/dL (0.6-1.2)
--- NOTE | 2021-10-09 07:33 | PROVIDER PROGRESS NOTE ---
Assessment/Plan - Problem List (1) Neutropenic colitis Assessment/Plan: Continue to tolerate soft well TPN discontinue 10/08/21 Social work to facilitate placement in a rehab facility (2) Chemotherapy-induced diarrhea Assessment/Plan: Improving. C. diff test was negative Imodium 2mg qid prn ordered (3) Neutropenia Qualifiers: Neutropenia type: other Qualified Code(s): D70.8 - Other neutropenia Assessment/Plan: Resolved (4) SVT (supraventricular tachycardia) Assessment/Plan: Resolved (5) Adenocarcinoma of rectum, stage 3 Assessment/Plan: Patient to follow-up with his oncologist in the outpatient setting. (6) Metabolic acidosis with respiratory alkalosis Assessment/Plan: Resolved (3) Neutropenia Qualifiers: Neutropenia type: other Qualified Code(s): D70.8 - Other neutropenia - Current Meds Current Meds: Current Medications Generic Name Dose Route Start Last Admin Trade Name Freq PRN Reason Stop Dose Admin Al Hydroxide/Mg Hydroxide 30 ml 09/22/21 20:39 10/08/21 20:51 Mag Hydrox/Al Hydrox/Simeth 30 Ml Udc PO 30 ml Q4HR PRN Administration INDIGESTION Diltiazem HCl 120 mg 09/27/21 07:35 10/08/21 08:20 Diltiazem Cd 120 Mg Capsule PO 120 mg DAILY SPENCER Administration Enoxaparin Sodium 40 mg 09/19/21 09:00 10/08/21 08:20 Enoxaparin 40 Mg/0.4 Ml Syringe SUBQ 40 mg DAILY SPENCER Administration Heparin Sodium (Beef Lung) 30 - 50 unit 09/26/21 16:30 10/09/21 02:44 Heparin Flush 50 Units/5 Ml Syringe IVP 50 unit PRN PRN Administration Port Protocol (<24 hours) Sodium Chloride 500 mls @ 20 mls/hr 09/29/21 08:53 10/07/21 13:00 Normal Saline 0.9% IV Infused Q24H PRN Infusion TKO RATE Lidocaine HCl 2 ml 10/03/21 15:01 10/06/21 23:44 Lidocaine Jelly 2% 6 Ml Jel.Pf.Thierry TOP 2 ml Q4H PRN Administration PAIN Loperamide HCl 2 mg 10/08/21 13:44 10/09/21 02:44 Loperamide 2 Mg Capsule PO 2 mg QID PRN Administration Diarrhea Mineral Oil 1 applic 09/19/21 16:51 10/06/21 23:44 Min Oil/Dimethicon/Coconut Oil 92 Gm Tube TOP 1 applic PRN PRN Administration Skin Care Morphine Sulfate 2 mg 09/18/21 22:41 09/27/21 17:57 Morphine 2 Mg/Ml Carpuject IVP 2 mg Q2HR PRN Administration Pain 8 to 10 Multi-Ingredient Ointment 1 applic 10/02/21 09:11 10/09/21 02:47 Zinc Oxide 20% Oint 30 Gm Tube TOP 1 applic PRN PRN Administration Skin Care Ondansetron HCl 4 mg 09/19/21 01:56 09/27/21 23:39 Ondansetron 4 Mg/2 Ml Vial IVP 4 mg Q4HR PRN Administration Nausea / Vomiting Oxycodone HCl 5 mg 09/18/21 22:41 09/19/21 16:40 Oxycodone 5 Mg Tablet PO 5 mg Q4HR PRN Administration Pain 5 to 7 Pantoprazole Sodium 40 mg 09/27/21 07:00 10/09/21 06:01 Pantoprazole 40 Mg Tablet PO 40 mg QDAC SPENCER Administration Psyllium Hydrophilic Mucilloid 1 packet 09/30/21 10:44 09/30/21 14:09 Psyllium Packet PO 1 packet DAILY PRN Administration Constipation Sodium Chloride 10 ml 09/19/21 01:00 10/09/21 02:44 Sodium Chloride Flush 0.9% 10 Ml Syringe IVP 10 ml 0100,[id number],1700 SPENCER Administration Sodium Chloride 10 ml 09/18/21 22:41 10/02/21 12:00 Sodium Chloride Flush 0.9% 10 Ml Syringe IVP 10 ml PRN PRN Administration NEEDED PER PROVIDER ORDERS Tamsulosin HCl 0.4 mg 10/01/21 09:00 10/08/21 08:20 Tamsulosin 0.4 Mg Capsule PO 0.4 mg DAILY SPENCER Administration - Lab Result Fish Bone Diagrams: 10/09/21 05:52 10/09/21 05:52 - Additional Planning My Orders: My Active Orders 10/08/21 13:44 Loperamide [Imodium] 2 mg PO QID PRN 10/10/21 05:00 BMP - BASIC METABOLIC PANEL [CHEM] DAILYLAB CBC - COMP BLD CT W/AUTO DIFF [HEME] DAILYLAB 10/11/21 05:00 BMP - BASIC METABOLIC PANEL [CHEM] DAILYLAB CBC - COMP BLD CT W/AUTO DIFF [HEME] DAILYLAB Subjective - Subjective Patient Reports: Other (Resting comfortably in bed. He tolerated breakfast well today. He has been off TPN since last night. Reported decrease in diarrhea.) Objective Vital Signs: Vital Signs - 24 hr 10/08/21 10/08/21 10/08/21 08:03 11:10 16:32 Temperature 36.6 C 36.5 C 36.3 C L Heart Rate [ 95 97 Brachial] Heart Rate [ 89 Monitoring electrodes] Respiratory 17 18 20 Rate Blood Pressure 106/68 [Left Brachial artery] Blood Pressure 106/55 L 115/64 [Right Brachial artery] O2 Saturation 96 98 99 10/08/21 10/08/21 10/09/21 20:46 23:35 03:27 Temperature 36.5 C 36.7 C 36.5 C Heart Rate [ 90 90 Brachial] Heart Rate [ 91 Monitoring electrodes] Respiratory 19 18 18 Rate Blood Pressure 100/50 L [Left Brachial artery] Blood Pressure 105/48 L 110/48 L [Right Brachial artery] O2 Saturation 99 98 100 Oxygen O2 Source Room air I&O (Last 24 Hrs): Intake and Output Totals x24h 10/07/21 10/08/21 10/09/21 23:59 23:59 23:59 Intake Total 3494.000 3938.000 550 Output Total 2525 2075 425 Balance 761.694 9746.000 125 General: Alert, Oriented x3, No acute distress HEENT: PERRLA, EOMI Neck: Supple, No JVD Neuro: Alert, Oriented Times 3 Cardiovascular: Regular rate, Normal S1, Normal S2 Respiratory: Chest non-tender, No respiratory distress Abdomen: Soft, Other (Hyper resonant bowel sounds) Extremities: No clubbing, No cyanosis, No edema Skin: No rashes, No breakdown, No significant lesion - Results Results: Laboratory Results WBC 6.6 x10^3/uL (4.8-10.8) 10/09/21 05:52 RBC 2.74 10^6/uL (4.70-6.10) L 10/09/21 05:52 Hgb 9.0 g/dL (14.0-18.0) L 10/09/21 05:52 Hct 29.2 % (42.0-52.0) L 10/09/21 05:52 MCV 106.6 fL (80.0-94.0) H 10/09/21 05:52 MCH 32.8 pg (27.0-31.0) H 10/09/21 05:52 MCHC 30.8 g/dL (32.0-36.0) L 10/09/21 05:52 RDW 18.6 % (12.0-15.0) H 10/09/21 05:52 Plt Count 185 10^3/uL (130-450) 10/09/21 05:52 MPV 9.6 fL (7.4-11.4) 10/09/21 05:52 Neut # (Auto) 5.2 10^3/uL (1.5-6.6) 10/09/21 05:52 Lymph # (Auto) 0.8 10^3/uL (1.5-3.5) L 10/09/21 05:52 [place] # (Auto) 0.4 10^3/uL (0.0-1.0) 10/09/21 05:52 Eos # (Auto) 0.1 10^3/uL (0.0-0.7) 10/09/21 05:52 Baso # (Auto) 0.0 10^3/uL (0.0-0.1) 10/09/21 05:52 Absolute Nucleated RBC 0.00 x10^3/uL 10/09/21 05:52 Total Counted 100 10/03/21 05:45 Band Neuts % (Manual) 2 % (0-10) 10/03/21 05:45 Abnorm Lymph % (Manual) 0 % 10/03/21 05:45 Metamyelocytes % 1 % (-0) H 09/23/21 04:15 Myelocytes % 1 % (-0) H 09/29/21 04:55 Nucleated RBC % 0.0 /100WBC 10/09/21 05:52 Neutrophils # (Manual) 3.7 10^3/uL (1.5-6.6) 10/03/21 05:45 Lymphocytes # (Manual) 0.8 10^3/uL (1.5-3.5) L 10/03/21 05:45 Monocytes # (Manual) 0.2 10^3/uL (0.0-1.0) 10/03/21 05:45 Eosinophils # (Manual) 0.0 10^3/uL (0-0.7) 10/03/21 05:45 Basophils # (Manual) 0.0 10^3/uL (0-0.1) 10/03/21 05:45 Nucleated RBCs 2 % 09/27/21 14:23 Differential Comment MANUAL DIFFERENTIAL 10/03/21 05:45 Manual Slide Review Indicated 09/24/21 09:11 WBC Morphology NORMAL APPEARANCE (NORMAL) 10/03/21 05:45 Platelet Estimate NORMAL (130-450,000) (NORMAL) 10/03/21 05:45 Platelet Morphology NORMAL APPEARANCE (NORMAL) 10/03/21 05:45 RBC Morph Micro Appear 1+ MACROCYTOSIS (NORMAL) 1+ ANISOCYTOSIS (NORMAL) 10/03/21 05:45 RBC Morph Micro Appear 1+ MACROCYTOSIS (NORMAL) 1+ ANISOCYTOSIS (NORMAL) 10/03/21 05:45 D-Dimer 925.3 ng/mL (200.0-255.0) H 09/18/21 20:50 Bld Gas Analysis Time 1212 09/20/21 12:00 Sample Site RIGHT RADIAL 09/20/21 12:00 ABG pH 7.43 (7.35-7.45) 09/20/21 12:00 ABG pCO2 23 mmHg (34-45) L* 09/20/21 12:00 ABG pO2 84 mmHg (80-100) 09/20/21 12:00 ABG HCO3 14.6 mmol/L (22.0-26.0) L 09/20/21 12:00 ABG Total CO2 15.3 MMOL/L (21.0-29.0) L 09/20/21 12:00 ABG O2 Saturation 97 % (94-98) 09/20/21 12:00 ABG Base Excess -7.8 mmol/L (-2.0-3.0) L 09/20/21 12:00 Pineda Test POSITIVE 09/20/21 12:00 VBG pH 7.526 (7.31-7.41) H 10/01/21 15:36 VBG pCO2 18.3 mmHg (41-51) L 10/01/21 15:36 VBG pO2 52.7 mmHg (25-47) H 10/01/21 15:36 VBG HCO3 14.8 mmol/L (23-28) L 10/01/21 15:36 VBG Total CO2 15.4 mmol/L (24-29) L 10/01/21 15:36 VBG O2 Saturation 91.6 % (60-80) H 10/01/21 15:36 VBG Base Excess -5.9 mmol/L (-2 - +2) L 10/01/21 15:36 Ionized Calcium 1.09 mmol/L (1.15-1.33) L 09/26/21 04:11 Room Air YES 09/20/21 12:00 O2 Delivery Device BiPAP 09/18/21 21:15 FiO2 100.00 09/18/21 21:15 EPAP 5 cmH2O 09/18/21 21:15 IPAP 12 cmH2O 09/18/21 21:15 Sodium 133 mmol/L (135-145) L 10/09/21 05:52 Potassium 4.0 mmol/L (3.5-5.0) 10/09/21 05:52 Chloride 103 mmol/L (101-111) 10/09/21 05:52 Carbon Dioxide 25 mmol/L (21-32) 10/09/21 05:52 Anion Gap 5.0 (6-13) L 10/09/21 05:52 BUN 13 mg/dL (6-20) 10/09/21 05:52 Creatinine 0.7 mg/dL (0.6-1.2) 10/09/21 05:52 Estimated GFR (MDRD) 110 (>89) 10/09/21 05:52 Glucose 78 mg/dL (70-100) 10/09/21 05:52 POC Whole Bld Glucose 121 mg/dL (70 - 100) H 10/02/21 00:07 Lactic Acid 1.9 mmol/L (0.5-2.2) 09/28/21 01:14 Calcium 7.5 mg/dL (8.5-10.3) L 10/09/21 05:52 Phosphorus 2.8 mg/dL (2.5-4.6) 10/02/21 06:10 Magnesium 1.9 mg/dL (1.7-2.8) 10/02/21 06:10 Total Bilirubin 0.3 mg/dL (0.2-1.0) 10/03/21 05:45 Direct Bilirubin 0.1 mg/dL (0.1-0.5) 10/03/21 05:45 AST 16 IU/L (10-42) 10/03/21 05:45 ALT 15 IU/L (10-60) 10/03/21 05:45 Alkaline Phosphatase 55 IU/L (42-121) 10/03/21 05:45 Troponin I High Sens 56.4 ng/L (2.3-19.7) H* 09/19/21 20:39 C-Reactive Protein 19.0 mg/dL (0-1.0) H 09/28/21 05:20 B-Natriuretic Peptide 149 pg/mL (5-100) H 09/18/21 20:50 Total Protein 3.9 g/dL (6.7-8.2) L 10/03/21 05:45 Albumin 1.0 g/dL (3.2-5.5) L 10/03/21 05:45 Globulin 2.9 g/dL (2.1-4.2) 10/03/21 05:45 Albumin/Globulin Ratio 0.4 (1.0-2.2) L 10/02/21 06:10 Prealbumin 10 mg/dL (18-45) L 10/02/21 06:10 Triglycerides 172 mg/dL (-149) H 10/02/21 06:10 Lipase 17 U/L (22-51) L 09/18/21 20:50 Vitamin B12 3949 pg/mL (180-914) H 10/05/21 06:10 Folate 10.52 ng/mL (5.90 - >24.8) 10/05/21 06:10 TSH 6.26 uIU/mL (0.34-5.60) H 09/26/21 12:30 Nasal Adenovirus (PCR) NOT DETECTED 09/18/21 21:15 Nasal B. parapertussis DNA (PCR) NOT DETECTED 09/18/21 21:15 Nasal Coronavir 229E PCR NOT DETECTED 09/18/21 21:15 Nasal Coronavir HKU1 PCR NOT DETECTED 09/18/21 21:15 Nasal Coronavir NL63 PCR NOT DETECTED 09/18/21 21:15 Nasal Coronavir OC43 PCR NOT DETECTED 09/18/21 21:15 Nasal Enterovir/Rhinovir PCR NOT DETECTED 09/18/21 21:15 Nasal Influenza B PCR NOT DETECTED 09/18/21 21:15 Nasal Influenza A PCR NOT DETECTED 09/18/21 21:15 Nasal Parainfluen 1 PCR NOT DETECTED 09/18/21 21:15 Nasal Parainfluen 2 PCR NOT DETECTED 09/18/21 21:15 Nasal Parainfluen 3 PCR NOT DETECTED 09/18/21 21:15 Nasal Parainfluen 4 PCR NOT DETECTED 09/18/21 21:15 Nasal RSV (PCR) NOT DETECTED 09/18/21 21:15 Nasal Screen MRSA (PCR) NEGATIVE (NEGATIVE) 09/18/21 23:50 Nasal B.pertussis DNA PCR NOT DETECTED 09/18/21 21:15 Nasal C.pneumoniae (PCR) NOT DETECTED 09/18/21 21:15 [place] Human Metapneumo PCR NOT DETECTED 09/18/21 21:15 Nasal M.pneumoniae (PCR) NOT DETECTED 09/18/21 21:15 Nasal SARS-CoV-2 (PCR) NOT DETECTED 09/18/21 21:15 Stl C. diff Tox B Gene NEGATIVE (NEGATIVE) 09/28/21 21:27 Last Dose Date 09/2009/21/21 05:25 Last Dose Time 1401 09/21/21 05:25 Digoxin 0.8 ng/mL 09/21/21 05:25 Ref Lab Test Result REPORT 09/22/21 01:55 - Procedures Procedures: Procedures EXCISION OF SIGMOID COLON, ENDO, DIAGN (06/17/21) ABX Reporting Has patient been on IV antibiotics over the past 48 hours?: No
[2021-10-09] MEDS: ENOXAPARIN 40 MG/0.4 ML SYRINGE SUBQ SCH (09:01)
[2021-10-09] MEDS: diltiaZEM CD 120 MG CAPSULE PO SCH (09:01)
[2021-10-09] MEDS: TAMSULOSIN 0.4 MG CAPSULE PO SCH (09:01)
[2021-10-09] MEDS: LIDOCAINE JELLY 2% 6 ML JEL.PF.APP TOP PRN ×2 (09:14→20:49)
[2021-10-09] MEDS: SODIUM CHLORIDE FLUSH 0.9% 10 ML SYRINGE IVP PRN (19:02)
[2021-10-10] MEDS: SODIUM CHLORIDE FLUSH 0.9% 10 ML SYRINGE IVP SCH ×3 (04:20→17:37)
[2021-10-10] MEDS: LIDOCAINE JELLY 2% 6 ML JEL.PF.APP TOP PRN ×3 (05:45→22:21)
[2021-10-10] MEDS: PANTOPRAZOLE 40 MG TABLET PO SCH (05:51)
[2021-10-10 05:59] LABS: BASOPHILS % (AUTO) 0.3 %; EOSINOPHILS # (AUTO) 0.1 10^3/uL (0.0-0.7); EOSINOPHILS % (AUTO) 2.3 %; HCT - HEMATOCRIT 26.2 % (42.0-52.0); HGB - HEMOGLOBIN 8.3 g/dL (14.0-18.0); LYMPHOCYTES # (AUTO) 0.8 10^3/uL (1.5-3.5); LYMPHOCYTES % (AUTO) 22.8 %; MEAN CORPUSCULAR HEMOGLOBIN 33.3 pg (27.0-31.0); MEAN CORPUSCULAR HGB CONC 31.7 g/dL (32.0-36.0); MEAN CORPUSCULAR VOLUME 105.2 fL (80.0-94.0); MEAN PLATELET VOLUME 9.8 fL (7.4-11.4); MONOCYTES # (AUTO) 0.4 10^3/uL (0.0-1.0); MONOCYTES % (AUTO) 10.7 %; NEUTROPHILS # (AUTO) 2.2 10^3/uL (1.5-6.6); NEUTROPHILS % (AUTO) 62.2 %; PLT - PLATELET COUNT 206 10^3/uL (130-450); RED BLOOD COUNT 2.49 10^6/uL (4.70-6.10); RED CELL DISTRIBUTION WIDTH 18.3 % (12.0-15.0); WHITE BLOOD COUNT 3.5 x10^3/uL (4.8-10.8)
[2021-10-10 06:11] LABS: CALCIUM 7.4 mg/dL (8.5-10.3); CREATININE 0.7 mg/dL (0.6-1.2); POTASSIUM 3.5 mmol/L (3.5-5.0)
[2021-10-10] MEDS: TAMSULOSIN 0.4 MG CAPSULE PO SCH (08:41)
[2021-10-10] MEDS: ENOXAPARIN 40 MG/0.4 ML SYRINGE SUBQ SCH (08:41)
[2021-10-10] MEDS: diltiaZEM CD 120 MG CAPSULE PO SCH (08:43)
[2021-10-10] MEDS: LOPERAMIDE 2 MG CAPSULE PO PRN ×2 (08:44→17:37)
--- NOTE | 2021-10-10 08:59 | PROVIDER PROGRESS NOTE ---
Assessment/Plan - Problem List (1) Neutropenic colitis Assessment/Plan: (1) Neutropenic colitis Assessment/Plan: Continues to tolerate soft well TPN discontinue 10/08/21 Social work to facilitate placement in a rehab facility (2) Chemotherapy-induced diarrhea Assessment/Plan: Improving. C. diff test was negative Imodium 2mg qid prn ordered (3) Neutropenia Qualifiers: Neutropenia type: other Qualified Code(s): D70.8 - Other neutropenia Assessment/Plan: WBC 3.5 today. Will continue to monitor (4) SVT (supraventricular tachycardia) Assessment/Plan: Resolved (5) Adenocarcinoma of rectum, stage 3 Assessment/Plan: Patient to follow-up with his oncologist in the outpatient setting. (6) Metabolic acidosis with respiratory alkalosis Assessment/Plan: Resolved (3) Neutropenia Qualifiers: Neutropenia type: other Qualified Code(s): D70.8 - Other neutropenia - Current Meds Current Meds: Current Medications Generic Name Dose Route Start Last Admin Trade Name Freq PRN Reason Stop Dose Admin Al Hydroxide/Mg Hydroxide 30 ml 09/22/21 20:39 10/08/21 20:51 Mag Hydrox/Al Hydrox/Simeth 30 Ml Udc PO 30 ml Q4HR PRN Administration INDIGESTION Diltiazem HCl 120 mg 09/27/21 07:35 10/10/21 08:43 Diltiazem Cd 120 Mg Capsule PO Not Given DAILY SPENCER Enoxaparin Sodium 40 mg 09/19/21 09:00 10/10/21 08:41 Enoxaparin 40 Mg/0.4 Ml Syringe SUBQ 40 mg DAILY SPENCER Administration Heparin Sodium (Beef Lung) 30 - 50 unit 09/26/21 16:30 10/09/21 02:44 Heparin Flush 50 Units/5 Ml Syringe IVP 50 unit PRN PRN Administration Port Protocol (<24 hours) Sodium Chloride 500 mls @ 20 mls/hr 09/29/21 08:53 10/07/21 13:00 Normal Saline 0.9% IV Infused Q24H PRN Infusion TKO RATE Lidocaine HCl 2 ml 10/03/21 15:01 10/10/21 05:45 Lidocaine Jelly 2% 6 Ml Jel.Pf.Thierry TOP 2 ml Q4H PRN Administration PAIN Loperamide HCl 2 mg 10/08/21 13:44 10/10/21 08:44 Loperamide 2 Mg Capsule PO 2 mg QID PRN Administration Diarrhea Mineral Oil 1 applic 09/19/21 16:51 10/06/21 23:44 Min Oil/Dimethicon/Coconut Oil 92 Gm Tube TOP 1 applic PRN PRN Administration Skin Care Morphine Sulfate 2 mg 09/18/21 22:41 09/27/21 17:57 Morphine 2 Mg/Ml Carpuject IVP 2 mg Q2HR PRN Administration Pain 8 to 10 Multi-Ingredient Ointment 1 applic 10/02/21 09:11 10/09/21 09:02 Zinc Oxide 20% Oint 30 Gm Tube TOP 1 applic PRN PRN Administration Skin Care Ondansetron HCl 4 mg 09/19/21 01:56 09/27/21 23:39 Ondansetron 4 Mg/2 Ml Vial IVP 4 mg Q4HR PRN Administration Nausea / Vomiting Oxycodone HCl 5 mg 09/18/21 22:41 09/19/21 16:40 Oxycodone 5 Mg Tablet PO 5 mg Q4HR PRN Administration Pain 5 to 7 Pantoprazole Sodium 40 mg 09/27/21 07:00 10/10/21 05:51 Pantoprazole 40 Mg Tablet PO 40 mg QDAC SPENCER Administration Psyllium Hydrophilic Mucilloid 1 packet 09/30/21 10:44 09/30/21 14:09 Psyllium Packet PO 1 packet DAILY PRN Administration Constipation Sodium Chloride 10 ml 09/19/21 01:00 10/10/21 08:42 Sodium Chloride Flush 0.9% 10 Ml Syringe IVP 10 ml 0100,0900,1700 SPENCER Administration Sodium Chloride 10 ml 09/18/21 22:41 10/09/21 19:02 Sodium Chloride Flush 0.9% 10 Ml Syringe IVP 10 ml PRN PRN Administration NEEDED PER PROVIDER ORDERS Tamsulosin HCl 0.4 mg 10/01/21 09:00 10/10/21 08:41 Tamsulosin 0.4 Mg Capsule PO 0.4 mg DAILY SPENCER Administration - Lab Result Fish Bone Diagrams: 10/10/21 05:00 10/10/21 05:00 - Additional Planning My Orders: My Active Orders 10/11/21 05:00 BMP - BASIC METABOLIC PANEL [CHEM] DAILYLAB CBC - COMP BLD CT W/AUTO DIFF [HEME] DAILYLAB Subjective - Subjective Patient Reports: Other (Resting comfortably in bedside chair. He continues to tolerate his meals well. Diarrhea still present but decreased in frequency.) Objective Vital Signs: Vital Signs - 24 hr 10/09/21 10/09/21 10/09/21 12:49 16:43 21:00 Temperature 36.3 C L 36.5 C 36.5 C Heart Rate [ 105 H 92 91 Brachial] Respiratory 20 16 16 Rate Blood Pressure 111/50 L [Left Brachial artery] Blood Pressure 95/56 L 105/55 L [Right Brachial artery] O2 Saturation 100 100 100 10/10/21 10/10/21 10/10/21 00:25 05:59 07:46 Temperature 36.6 C 36.5 C 36.6 C Heart Rate [ 91 90 89 Brachial] Respiratory 18 20 17 Rate Blood Pressure [Left Brachial artery] Blood Pressure 111/52 L 101/55 L 100/53 L [Right Brachial artery] O2 Saturation 99 100 99 Oxygen O2 Source Room air I&O (Last 24 Hrs): Intake and Output Totals x24h 10/08/21 10/09/21 10/10/21 23:59 23:59 23:59 Intake Total 3938.000 2287 200 Output Total 2075 1875 450 Balance 1863.000 412 -250 Comments/Notes: General: Alert, Oriented x3, No acute distress HEENT: PERRLA, EOMI Neck: Supple, No JVD Neuro: Alert, Oriented Times 3 Cardiovascular: Regular rate, Normal S1, Normal S2 Respiratory: Chest non-tender, No respiratory distress Abdomen: Soft, Other (Hyper resonant bowel sounds) Extremities: No clubbing, No cyanosis, No edema Skin: No rashes, No breakdown, No significant lesion - Results Results: Laboratory Results WBC 3.5 x10^3/uL (4.8-10.8) L 10/10/21 05:00 RBC 2.49 10^6/uL (4.70-6.10) L 10/10/21 05:00 Hgb 8.3 g/dL (14.0-18.0) L 10/10/21 05:00 Hct 26.2 % (42.0-52.0) L 10/10/21 05:00 MCV 105.2 fL (80.0-94.0) H 10/10/21 05:00 MCH 33.3 pg (27.0-31.0) H 10/10/21 05:00 MCHC 31.7 g/dL (32.0-36.0) L 10/10/21 05:00 RDW 18.3 % (12.0-15.0) H 10/10/21 05:00 Plt Count 206 10^3/uL (130-450) 10/10/21 05:00 MPV 9.8 fL (7.4-11.4) 10/10/21 05:00 Neut # (Auto) 2.2 10^3/uL (1.5-6.6) 10/10/21 05:00 Lymph # (Auto) 0.8 10^3/uL (1.5-3.5) L 10/10/21 05:00 [place] # (Auto) 0.4 10^3/uL (0.0-1.0) 10/10/21 05:00 Eos # (Auto) 0.1 10^3/uL (0.0-0.7) 10/10/21 05:00 Baso # (Auto) 0.0 10^3/uL (0.0-0.1) 10/10/21 05:00 Absolute Nucleated RBC 0.00 x10^3/uL 10/10/21 05:00 Total Counted 100 10/03/21 05:45 Band Neuts % (Manual) 2 % (0-10) 10/03/21 05:45 Abnorm Lymph % (Manual) 0 % 10/03/21 05:45 Metamyelocytes % 1 % (-0) H 09/23/21 04:15 Myelocytes % 1 % (-0) H 09/29/21 04:55 Nucleated RBC % 0.0 /100WBC 10/10/21 05:00 Neutrophils # (Manual) 3.7 10^3/uL (1.5-6.6) 10/03/21 05:45 Lymphocytes # (Manual) 0.8 10^3/uL (1.5-3.5) L 10/03/21 05:45 Monocytes # (Manual) 0.2 10^3/uL (0.0-1.0) 10/03/21 05:45 Eosinophils # (Manual) 0.0 10^3/uL (0-0.7) 10/03/21 05:45 Basophils # (Manual) 0.0 10^3/uL (0-0.1) 10/03/21 05:45 Nucleated RBCs 2 % 09/27/21 14:23 Differential Comment MANUAL DIFFERENTIAL 10/03/21 05:45 Manual Slide Review Indicated 09/24/21 09:11 WBC Morphology NORMAL APPEARANCE (NORMAL) 10/03/21 05:45 Platelet Estimate NORMAL (130-450,000) (NORMAL) 10/03/21 05:45 Platelet Morphology NORMAL APPEARANCE (NORMAL) 10/03/21 05:45 RBC Morph Micro Appear 1+ MACROCYTOSIS (NORMAL) 1+ ANISOCYTOSIS (NORMAL) 10/03/21 05:45 RBC Morph Micro Appear 1+ MACROCYTOSIS (NORMAL) 1+ ANISOCYTOSIS (NORMAL) 10/03/21 05:45 D-Dimer 925.3 ng/mL (200.0-255.0) H 09/18/21 20:50 Bld Gas Analysis Time 1212 09/20/21 12:00 Sample Site RIGHT RADIAL 09/20/21 12:00 ABG pH 7.43 (7.35-7.45) 09/20/21 12:00 ABG pCO2 23 mmHg (34-45) L* 09/20/21 12:00 ABG pO2 84 mmHg (80-100) 09/20/21 12:00 ABG HCO3 14.6 mmol/L (22.0-26.0) L 09/20/21 12:00 ABG Total CO2 15.3 MMOL/L (21.0-29.0) L 09/20/21 12:00 ABG O2 Saturation 97 % (94-98) 09/20/21 12:00 ABG Base Excess -7.8 mmol/L (-2.0-3.0) L 09/20/21 12:00 Pineda Test POSITIVE 09/20/21 12:00 VBG pH 7.526 (7.31-7.41) H 10/01/21 15:36 VBG pCO2 18.3 mmHg (41-51) L 10/01/21 15:36 VBG pO2 52.7 mmHg (25-47) H 10/01/21 15:36 VBG HCO3 14.8 mmol/L (23-28) L 10/01/21 15:36 VBG Total CO2 15.4 mmol/L (24-29) L 10/01/21 15:36 VBG O2 Saturation 91.6 % (60-80) H 10/01/21 15:36 VBG Base Excess -5.9 mmol/L (-2 - +2) L 10/01/21 15:36 Ionized Calcium 1.09 mmol/L (1.15-1.33) L 09/26/21 04:11 Room Air YES 09/20/21 12:00 O2 Delivery Device BiPAP 09/18/21 21:15 FiO2 100.00 09/18/21 21:15 EPAP 5 cmH2O 09/18/21 21:15 IPAP 12 cmH2O 09/18/21 21:15 Sodium 135 mmol/L (135-145) 10/10/21 05:00 Potassium 3.5 mmol/L (3.5-5.0) 10/10/21 05:00 Chloride 103 mmol/L (101-111) 10/10/21 05:00 Carbon Dioxide 25 mmol/L (21-32) 10/10/21 05:00 Anion Gap 7.0 (6-13) 10/10/21 05:00 BUN 11 mg/dL (6-20) 10/10/21 05:00 Creatinine 0.7 mg/dL (0.6-1.2) 10/10/21 05:00 Estimated GFR (MDRD) 110 (>89) 10/10/21 05:00 Glucose 88 mg/dL (70-100) 10/10/21 05:00 POC Whole Bld Glucose 121 mg/dL (70 - 100) H 10/02/21 00:07 Lactic Acid 1.9 mmol/L (0.5-2.2) 09/28/21 01:14 Calcium 7.4 mg/dL (8.5-10.3) L 10/10/21 05:00 Phosphorus 2.8 mg/dL (2.5-4.6) 10/02/21 06:10 Magnesium 1.9 mg/dL (1.7-2.8) 10/02/21 06:10 Total Bilirubin 0.3 mg/dL (0.2-1.0) 10/03/21 05:45 Direct Bilirubin 0.1 mg/dL (0.1-0.5) 10/03/21 05:45 AST 16 IU/L (10-42) 10/03/21 05:45 ALT 15 IU/L (10-60) 10/03/21 05:45 Alkaline Phosphatase 55 IU/L (42-121) 10/03/21 05:45 Troponin I High Sens 56.4 ng/L (2.3-19.7) H* 09/19/21 20:39 C-Reactive Protein 19.0 mg/dL (0-1.0) H 09/28/21 05:20 B-Natriuretic Peptide 149 pg/mL (5-100) H 09/18/21 20:50 Total Protein 3.9 g/dL (6.7-8.2) L 10/03/21 05:45 Albumin 1.0 g/dL (3.2-5.5) L 10/03/21 05:45 Globulin 2.9 g/dL (2.1-4.2) 10/03/21 05:45 Albumin/Globulin Ratio 0.4 (1.0-2.2) L 10/02/21 06:10 Prealbumin 10 mg/dL (18-45) L 10/02/21 06:10 Triglycerides 172 mg/dL (-149) H 10/02/21 06:10 Lipase 17 U/L (22-51) L 09/18/21 20:50 Vitamin B12 3949 pg/mL (180-914) H 10/05/21 06:10 Folate 10.52 ng/mL (5.90 - >24.8) 10/05/21 06:10 TSH 6.26 uIU/mL (0.34-5.60) H 09/26/21 12:30 Nasal Adenovirus (PCR) NOT DETECTED 09/18/21 21:15 Nasal B. parapertussis DNA (PCR) NOT DETECTED 09/18/21 21:15 Nasal Coronavir 229E PCR NOT DETECTED 09/18/21 21:15 Nasal Coronavir HKU1 PCR NOT DETECTED 09/18/21 21:15 Nasal Coronavir NL63 PCR NOT DETECTED 09/18/21 21:15 Nasal Coronavir OC43 PCR NOT DETECTED 09/18/21 21:15 Nasal Enterovir/Rhinovir PCR NOT DETECTED 09/18/21 21:15 Nasal Influenza B PCR NOT DETECTED 09/18/21 21:15 Nasal Influenza A PCR NOT DETECTED 09/18/21 21:15 Nasal Parainfluen 1 PCR NOT DETECTED 09/18/21 21:15 Nasal Parainfluen 2 PCR NOT DETECTED 09/18/21 21:15 Nasal Parainfluen 3 PCR NOT DETECTED 09/18/21 21:15 Nasal Parainfluen 4 PCR NOT DETECTED 09/18/21 21:15 Nasal RSV (PCR) NOT DETECTED 09/18/21 21:15 Nasal Screen MRSA (PCR) NEGATIVE (NEGATIVE) 09/18/21 23:50 Nasal B.pertussis DNA PCR NOT DETECTED 09/18/21 21:15 Nasal C.pneumoniae (PCR) NOT DETECTED 09/18/21 21:15 Sohail Human Metapneumo PCR NOT DETECTED 09/18/21 21:15 Nasal M.pneumoniae (PCR) NOT DETECTED 09/18/21 21:15 Nasal SARS-CoV-2 (PCR) NOT DETECTED 09/18/21 21:15 Stl C. diff Tox B Gene NEGATIVE (NEGATIVE) 09/28/21 21:27 Last Dose Date 09/2009/21/21 05:25 Last Dose Time 1401 09/21/21 05:25 Digoxin 0.8 ng/mL 09/21/21 05:25 Ref Lab Test Result REPORT 09/22/21 01:55 - Procedures Procedures: Procedures EXCISION OF SIGMOID COLON, ENDO, DIAGN (06/17/21) ABX Reporting Has patient been on IV antibiotics over the past 48 hours?: No
[2021-10-10] MEDS: MAG HYDROX/AL HYDROX/SIMETH 30 ML UDC PO PRN ×2 (10:55→15:06)
[2021-10-10] MEDS: ZINC OXIDE 20% OINT 30 GM TUBE TOP PRN (10:55)
[2021-10-10] MEDS: MIN OIL/DIMETHICON/COCONUT OIL 92 GM TUBE TOP PRN (10:55)
[2021-10-10] MEDS: ACETAMINOPHEN 325 MG TABLET PO PRN (14:44)
[2021-10-11] MEDS: SODIUM CHLORIDE FLUSH 0.9% 10 ML SYRINGE IVP SCH ×3 (02:57→17:40)
[2021-10-11 06:06] LABS: BASOPHILS % (AUTO) 0.2 %; EOSINOPHILS # (AUTO) 0.1 10^3/uL (0.0-0.7); EOSINOPHILS % (AUTO) 2.2 %; HCT - HEMATOCRIT 27.5 % (42.0-52.0); HGB - HEMOGLOBIN 8.7 g/dL (14.0-18.0); LYMPHOCYTES # (AUTO) 0.8 10^3/uL (1.5-3.5); LYMPHOCYTES % (AUTO) 19.9 %; MEAN CORPUSCULAR HEMOGLOBIN 33.5 pg (27.0-31.0); MEAN CORPUSCULAR HGB CONC 31.6 g/dL (32.0-36.0); MEAN CORPUSCULAR VOLUME 105.8 fL (80.0-94.0); MEAN PLATELET VOLUME 9.6 fL (7.4-11.4); MONOCYTES # (AUTO) 0.4 10^3/uL (0.0-1.0); MONOCYTES % (AUTO) 10.6 %; NEUTROPHILS # (AUTO) 2.8 10^3/uL (1.5-6.6); NEUTROPHILS % (AUTO) 66.1 %; PLT - PLATELET COUNT 238 10^3/uL (130-450); RED CELL DISTRIBUTION WIDTH 17.9 % (12.0-15.0); WHITE BLOOD COUNT 4.2 x10^3/uL (4.8-10.8)
[2021-10-11] MEDS: PANTOPRAZOLE 40 MG TABLET PO SCH (06:06)
[2021-10-11 06:15] LABS: CALCIUM 7.5 mg/dL (8.5-10.3); CREATININE 0.6 mg/dL (0.6-1.2); POTASSIUM 3.5 mmol/L (3.5-5.0)
--- NOTE | 2021-10-11 07:45 | PROVIDER PROGRESS NOTE ---
Assessment/Plan - Problem List (1) Neutropenic colitis Assessment/Plan: Continues to tolerate soft well TPN discontinue 10/08/21 Social work to facilitate placement in a rehab facility (2) Chemotherapy-induced diarrhea Assessment/Plan: Improving. C. diff test was negative Imodium 2mg qid prn ordered (3) Neutropenia Qualifiers: Neutropenia type: other Qualified Code(s): D70.8 - Other neutropenia Assessment/Plan: WBC 4.2 today. Will continue to monitor (4) SVT (supraventricular tachycardia) Assessment/Plan: Resolved (5) Adenocarcinoma of rectum, stage 3 Assessment/Plan: Patient to follow-up with his oncologist in the outpatient setting. (6) Metabolic acidosis with respiratory alkalosis Assessment/Plan: Resolved (3) Neutropenia Qualifiers: Neutropenia type: other Qualified Code(s): D70.8 - Other neutropenia - Current Meds Current Meds: Current Medications Generic Name Dose Route Start Last Admin Trade Name Freq PRN Reason Stop Dose Admin Acetaminophen 650 mg 10/07/21 13:59 10/10/21 14:44 Acetaminophen 325 Mg Tablet PO 650 mg Q4HR PRN Administration Pain 1 to 4 Al Hydroxide/Mg Hydroxide 30 ml 09/22/21 20:39 10/10/21 15:06 Mag Hydrox/Al Hydrox/Simeth 30 Ml Udc PO 30 ml Q4HR PRN Administration INDIGESTION Diltiazem HCl 120 mg 09/27/21 07:35 10/10/21 08:43 Diltiazem Cd 120 Mg Capsule PO Not Given DAILY SPENCER Enoxaparin Sodium 40 mg 09/19/21 09:00 10/10/21 08:41 Enoxaparin 40 Mg/0.4 Ml Syringe SUBQ 40 mg DAILY SPENCER Administration Heparin Sodium (Beef Lung) 30 - 50 unit 09/26/21 16:30 10/09/21 02:44 Heparin Flush 50 Units/5 Ml Syringe IVP 50 unit PRN PRN Administration Port Protocol (<24 hours) Sodium Chloride 500 mls @ 20 mls/hr 09/29/21 08:53 10/07/21 13:00 Normal Saline 0.9% IV Infused Q24H PRN Infusion TKO RATE Lidocaine HCl 2 ml 10/03/21 15:01 10/10/21 22:21 Lidocaine Jelly 2% 6 Ml Jel.Pf.Thierry TOP 2 ml Q4H PRN Administration PAIN Loperamide HCl 2 mg 10/08/21 13:44 10/10/21 17:37 Loperamide 2 Mg Capsule PO 2 mg QID PRN Administration Diarrhea Mineral Oil 1 applic 09/19/21 16:51 10/10/21 10:55 Min Oil/Dimethicon/Coconut Oil 92 Gm Tube TOP 1 applic PRN PRN Administration Skin Care Morphine Sulfate 2 mg 09/18/21 22:41 09/27/21 17:57 Morphine 2 Mg/Ml Carpuject IVP 2 mg Q2HR PRN Administration Pain 8 to 10 Multi-Ingredient Ointment 1 applic 10/02/21 09:11 10/10/21 10:55 Zinc Oxide 20% Oint 30 Gm Tube TOP 1 applic PRN PRN Administration Skin Care Ondansetron HCl 4 mg 09/19/21 01:56 09/27/21 23:39 Ondansetron 4 Mg/2 Ml Vial IVP 4 mg Q4HR PRN Administration Nausea / Vomiting Oxycodone HCl 5 mg 09/18/21 22:41 09/19/21 16:40 Oxycodone 5 Mg Tablet PO 5 mg Q4HR PRN Administration Pain 5 to 7 Pantoprazole Sodium 40 mg 09/27/21 07:00 10/11/21 06:06 Pantoprazole 40 Mg Tablet PO 40 mg QDAC SPENCER Administration Psyllium Hydrophilic Mucilloid 1 packet 09/30/21 10:44 09/30/21 14:09 Psyllium Packet PO 1 packet DAILY PRN Administration Constipation Sodium Chloride 10 ml 09/19/21 01:00 10/11/21 02:57 Sodium Chloride Flush 0.9% 10 Ml Syringe IVP 10 ml 0100,0900,1700 SPENCER Administration Sodium Chloride 10 ml 09/18/21 22:41 10/09/21 19:02 Sodium Chloride Flush 0.9% 10 Ml Syringe IVP 10 ml PRN PRN Administration NEEDED PER PROVIDER ORDERS Tamsulosin HCl 0.4 mg 10/01/21 09:00 10/10/21 08:41 Tamsulosin 0.4 Mg Capsule PO 0.4 mg DAILY SPENCER Administration - Lab Result Fish Bone Diagrams: 10/11/21 05:10 10/11/21 05:10 Subjective - Subjective Patient Reports: Other (Resting comfortably in bedside chair. He continues to tolerate his meals well. Diarrhea still present but decreased in frequency.) Objective Vital Signs: Vital Signs - 24 hr 10/10/21 10/10/21 10/10/21 07:46 11:06 17:00 Temperature 36.6 C 36.2 C L 36.5 C Heart Rate [ 89 88 103 H Brachial] Respiratory 17 18 20 Rate Blood Pressure 100/53 L 101/52 L 103/63 [Right Brachial artery] O2 Saturation 99 99 98 10/11/21 00:10 Temperature 36.5 C Heart Rate [ 96 Brachial] Respiratory 18 Rate Blood Pressure 110/59 L [Right Brachial artery] O2 Saturation 100 Oxygen O2 Source Room air I&O (Last 24 Hrs): Intake and Output Totals x24h 10/09/21 10/10/21 10/11/21 23:59 23:59 23:59 Intake Total 2287 2490 Output Total 1875 1150 450 Balance 412 1340 -450 Comments/Notes: General: Alert, Oriented x3, No acute distress HEENT: PERRLA, EOMI Neck: Supple, No JVD Neuro: Alert, Oriented Times 3 Cardiovascular: Regular rate, Normal S1, Normal S2 Respiratory: Chest non-tender, No respiratory distress Abdomen: Soft, Other (Hyper resonant bowel sounds) Extremities: No clubbing, No cyanosis, No edema Skin: No rashes, No breakdown, No significant lesion - Results Results: Laboratory Results WBC 4.2 x10^3/uL (4.8-10.8) L 10/11/21 05:10 RBC 2.60 10^6/uL (4.70-6.10) L 10/11/21 05:10 Hgb 8.7 g/dL (14.0-18.0) L 10/11/21 05:10 Hct 27.5 % (42.0-52.0) L 10/11/21 05:10 MCV 105.8 fL (80.0-94.0) H 10/11/21 05:10 MCH 33.5 pg (27.0-31.0) H 10/11/21 05:10 MCHC 31.6 g/dL (32.0-36.0) L 10/11/21 05:10 RDW 17.9 % (12.0-15.0) H 10/11/21 05:10 Plt Count 238 10^3/uL (130-450) 10/11/21 05:10 MPV 9.6 fL (7.4-11.4) 10/11/21 05:10 Neut # (Auto) 2.8 10^3/uL (1.5-6.6) 10/11/21 05:10 Lymph # (Auto) 0.8 10^3/uL (1.5-3.5) L 10/11/21 05:10 [place] # (Auto) 0.4 10^3/uL (0.0-1.0) 10/11/21 05:10 Eos # (Auto) 0.1 10^3/uL (0.0-0.7) 10/11/21 05:10 Baso # (Auto) 0.0 10^3/uL (0.0-0.1) 10/11/21 05:10 Absolute Nucleated RBC 0.00 x10^3/uL 10/11/21 05:10 Total Counted 100 10/03/21 05:45 Band Neuts % (Manual) 2 % (0-10) 10/03/21 05:45 Abnorm Lymph % (Manual) 0 % 10/03/21 05:45 Metamyelocytes % 1 % (-0) H 09/23/21 04:15 Myelocytes % 1 % (-0) H 09/29/21 04:55 Nucleated RBC % 0.0 /100WBC 10/11/21 05:10 Neutrophils # (Manual) 3.7 10^3/uL (1.5-6.6) 10/03/21 05:45 Lymphocytes # (Manual) 0.8 10^3/uL (1.5-3.5) L 10/03/21 05:45 Monocytes # (Manual) 0.2 10^3/uL (0.0-1.0) 10/03/21 05:45 Eosinophils # (Manual) 0.0 10^3/uL (0-0.7) 10/03/21 05:45 Basophils # (Manual) 0.0 10^3/uL (0-0.1) 10/03/21 05:45 Nucleated RBCs 2 % 09/27/21 14:23 Differential Comment MANUAL DIFFERENTIAL 10/03/21 05:45 Manual Slide Review Indicated 09/24/21 09:11 WBC Morphology NORMAL APPEARANCE (NORMAL) 10/03/21 05:45 Platelet Estimate NORMAL (130-450,000) (NORMAL) 10/03/21 05:45 Platelet Morphology NORMAL APPEARANCE (NORMAL) 10/03/21 05:45 RBC Morph Micro Appear 1+ MACROCYTOSIS (NORMAL) 1+ ANISOCYTOSIS (NORMAL) 10/03/21 05:45 RBC Morph Micro Appear 1+ MACROCYTOSIS (NORMAL) 1+ ANISOCYTOSIS (NORMAL) 10/03/21 05:45 D-Dimer 925.3 ng/mL (200.0-255.0) H 09/18/21 20:50 Bld Gas Analysis Time 1212 09/20/21 12:00 Sample Site RIGHT RADIAL 09/20/21 12:00 ABG pH 7.43 (7.35-7.45) 09/20/21 12:00 ABG pCO2 23 mmHg (34-45) L* 09/20/21 12:00 ABG pO2 84 mmHg (80-100) 09/20/21 12:00 ABG HCO3 14.6 mmol/L (22.0-26.0) L 09/20/21 12:00 ABG Total CO2 15.3 MMOL/L (21.0-29.0) L 09/20/21 12:00 ABG O2 Saturation 97 % (94-98) 09/20/21 12:00 ABG Base Excess -7.8 mmol/L (-2.0-3.0) L 09/20/21 12:00 Pineda Test POSITIVE 09/20/21 12:00 VBG pH 7.526 (7.31-7.41) H 10/01/21 15:36 VBG pCO2 18.3 mmHg (41-51) L 10/01/21 15:36 VBG pO2 52.7 mmHg (25-47) H 10/01/21 15:36 VBG HCO3 14.8 mmol/L (23-28) L 10/01/21 15:36 VBG Total CO2 15.4 mmol/L (24-29) L 10/01/21 15:36 VBG O2 Saturation 91.6 % (60-80) H 10/01/21 15:36 VBG Base Excess -5.9 mmol/L (-2 - +2) L 10/01/21 15:36 Ionized Calcium 1.09 mmol/L (1.15-1.33) L 09/26/21 04:11 Room Air YES 09/20/21 12:00 O2 Delivery Device BiPAP 09/18/21 21:15 FiO2 100.00 09/18/21 21:15 EPAP 5 cmH2O 09/18/21 21:15 IPAP 12 cmH2O 09/18/21 21:15 Sodium 135 mmol/L (135-145) 10/11/21 05:10 Potassium 3.5 mmol/L (3.5-5.0) 10/11/21 05:10 Chloride 104 mmol/L (101-111) 10/11/21 05:10 Carbon Dioxide 25 mmol/L (21-32) 10/11/21 05:10 Anion Gap 6.0 (6-13) 10/11/21 05:10 BUN 11 mg/dL (6-20) 10/11/21 05:10 Creatinine 0.6 mg/dL (0.6-1.2) 10/11/21 05:10 Estimated GFR (MDRD) 132 (>89) 10/11/21 05:10 Glucose 89 mg/dL (70-100) 10/11/21 05:10 POC Whole Bld Glucose 121 mg/dL (70 - 100) H 10/02/21 00:07 Lactic Acid 1.9 mmol/L (0.5-2.2) 09/28/21 01:14 Calcium 7.5 mg/dL (8.5-10.3) L 10/11/21 05:10 Phosphorus 2.8 mg/dL (2.5-4.6) 10/02/21 06:10 Magnesium 1.9 mg/dL (1.7-2.8) 10/02/21 06:10 Total Bilirubin 0.3 mg/dL (0.2-1.0) 10/03/21 05:45 Direct Bilirubin 0.1 mg/dL (0.1-0.5) 10/03/21 05:45 AST 16 IU/L (10-42) 10/03/21 05:45 ALT 15 IU/L (10-60) 10/03/21 05:45 Alkaline Phosphatase 55 IU/L (42-121) 10/03/21 05:45 Troponin I High Sens 56.4 ng/L (2.3-19.7) H* 09/19/21 20:39 C-Reactive Protein 19.0 mg/dL (0-1.0) H 09/28/21 05:20 B-Natriuretic Peptide 149 pg/mL (5-100) H 09/18/21 20:50 Total Protein 3.9 g/dL (6.7-8.2) L 10/03/21 05:45 Albumin 1.0 g/dL (3.2-5.5) L 10/03/21 05:45 Globulin 2.9 g/dL (2.1-4.2) 10/03/21 05:45 Albumin/Globulin Ratio 0.4 (1.0-2.2) L 10/02/21 06:10 Prealbumin 10 mg/dL (18-45) L 10/02/21 06:10 Triglycerides 172 mg/dL (-149) H 10/02/21 06:10 Lipase 17 U/L (22-51) L 09/18/21 20:50 Vitamin B12 3949 pg/mL (180-914) H 10/05/21 06:10 Folate 10.52 ng/mL (5.90 - >24.8) 10/05/21 06:10 TSH 6.26 uIU/mL (0.34-5.60) H 09/26/21 12:30 Nasal Adenovirus (PCR) NOT DETECTED 09/18/21 21:15 Nasal B. parapertussis DNA (PCR) NOT DETECTED 09/18/21 21:15 Nasal Coronavir 229E PCR NOT DETECTED 09/18/21 21:15 Nasal Coronavir HKU1 PCR NOT DETECTED 09/18/21 21:15 Nasal Coronavir NL63 PCR NOT DETECTED 09/18/21 21:15 Nasal Coronavir OC43 PCR NOT DETECTED 09/18/21 21:15 Nasal Enterovir/Rhinovir PCR NOT DETECTED 09/18/21 21:15 Nasal Influenza B PCR NOT DETECTED 09/18/21 21:15 Nasal Influenza A PCR NOT DETECTED 09/18/21 21:15 Nasal Parainfluen 1 PCR NOT DETECTED 09/18/21 21:15 Nasal Parainfluen 2 PCR NOT DETECTED 09/18/21 21:15 Nasal Parainfluen 3 PCR NOT DETECTED 09/18/21 21:15 Nasal Parainfluen 4 PCR NOT DETECTED 09/18/21 21:15 Nasal RSV (PCR) NOT DETECTED 09/18/21 21:15 Nasal Screen MRSA (PCR) NEGATIVE (NEGATIVE) 09/18/21 23:50 Nasal B.pertussis DNA PCR NOT DETECTED 09/18/21 21:15 Nasal C.pneumoniae (PCR) NOT DETECTED 09/18/21 21:15 Sohail Human Metapneumo PCR NOT DETECTED 09/18/21 21:15 Nasal M.pneumoniae (PCR) NOT DETECTED 09/18/21 21:15 Nasal SARS-CoV-2 (PCR) NOT DETECTED 09/18/21 21:15 Stl C. diff Tox B Gene NEGATIVE (NEGATIVE) 09/28/21 21:27 Last Dose Date 09/2009/21/21 05:25 Last Dose Time 1401 09/21/21 05:25 Digoxin 0.8 ng/mL 09/21/21 05:25 Ref Lab Test Result REPORT 09/22/21 01:55 - Procedures Procedures: Procedures EXCISION OF SIGMOID COLON, ENDO, DIAGN (06/17/21) ABX Reporting Has patient been on IV antibiotics over the past 48 hours?: No
[2021-10-11] MEDS: ENOXAPARIN 40 MG/0.4 ML SYRINGE SUBQ SCH (08:22)
[2021-10-11] MEDS: TAMSULOSIN 0.4 MG CAPSULE PO SCH (08:22)
[2021-10-11] MEDS: diltiaZEM CD 120 MG CAPSULE PO SCH (08:22)
[2021-10-11] MEDS: ACETAMINOPHEN 325 MG TABLET PO PRN (11:45)
[2021-10-12] MEDS: SODIUM CHLORIDE FLUSH 0.9% 10 ML SYRINGE IVP SCH ×3 (01:34→16:55)
[2021-10-12] MEDS: LOPERAMIDE 2 MG CAPSULE PO PRN (01:34)
[2021-10-12] MEDS: ZINC OXIDE 20% OINT 30 GM TUBE TOP PRN (01:34)
[2021-10-12] MEDS: PANTOPRAZOLE 40 MG TABLET PO SCH (06:07)
[2021-10-12 08:56] LABS: BASOPHILS % (AUTO) 0.5 %; EOSINOPHILS # (AUTO) 0.1 10^3/uL (0.0-0.7); EOSINOPHILS % (AUTO) 1.8 %; HCT - HEMATOCRIT 29.4 % (42.0-52.0); HGB - HEMOGLOBIN 9.1 g/dL (14.0-18.0); LYMPHOCYTES # (AUTO) 0.9 10^3/uL (1.5-3.5); LYMPHOCYTES % (AUTO) 22.3 %; MEAN CORPUSCULAR HEMOGLOBIN 32.6 pg (27.0-31.0); MEAN CORPUSCULAR VOLUME 105.4 fL (80.0-94.0); MEAN PLATELET VOLUME 9.4 fL (7.4-11.4); MONOCYTES # (AUTO) 0.4 10^3/uL (0.0-1.0); MONOCYTES % (AUTO) 11.3 %; NEUTROPHILS # (AUTO) 2.5 10^3/uL (1.5-6.6); NEUTROPHILS % (AUTO) 63.1 %; PLT - PLATELET COUNT 290 10^3/uL (130-450); RED BLOOD COUNT 2.79 10^6/uL (4.70-6.10); RED CELL DISTRIBUTION WIDTH 17.8 % (12.0-15.0); WHITE BLOOD COUNT 3.9 x10^3/uL (4.8-10.8)
[2021-10-12] MEDS: TAMSULOSIN 0.4 MG CAPSULE PO SCH (08:59)
[2021-10-12] MEDS: ENOXAPARIN 40 MG/0.4 ML SYRINGE SUBQ SCH (08:59)
[2021-10-12] MEDS: diltiaZEM CD 120 MG CAPSULE PO SCH (08:59)
[2021-10-12 09:04] LABS: CALCIUM 7.7 mg/dL (8.5-10.3); CREATININE 0.7 mg/dL (0.6-1.2); POTASSIUM 3.3 mmol/L (3.5-5.0)
[2021-10-12] MEDS: MAG HYDROX/AL HYDROX/SIMETH 30 ML UDC PO PRN (13:21)
[2021-10-12] MEDS: ACETAMINOPHEN 325 MG TABLET PO PRN (15:49)
[2021-10-12] MEDS: MULTIVITAMIN W/MINERALS TABLET PO SCH (15:50)
[2021-10-12] MEDS: LACTOBACILLUS RHAMNOSUS GG CAPSULE PO SCH (16:55)
--- NOTE | 2021-10-12 19:50 | PROVIDER PROGRESS NOTE ---
Assessment/Plan - Problem List (1) Neutropenic colitis Assessment/Plan: Continues to tolerate soft well TPN discontinue 10/08/21 Social work to facilitate placement in a rehab facility (2) Chemotherapy-induced diarrhea Assessment/Plan: Improving. C. diff test was negative Imodium 2mg qid prn ordered In light of neutropenic colitis, patient was told his diarrhea could take weeks to resolve. (3) Neutropenia Qualifiers: Neutropenia type: other Qualified Code(s): D70.8 - Other neutropenia Assessment/Plan: WBC 4.2 today. Will continue to monitor (4) SVT (supraventricular tachycardia) Assessment/Plan: Resolved (5) Adenocarcinoma of rectum, stage 3 Assessment/Plan: Patient to follow-up with his oncologist in the outpatient setting. (6) Metabolic acidosis with respiratory alkalosis Assessment/Plan: Resolved (3) Neutropenia Qualifiers: Neutropenia type: other Qualified Code(s): D70.8 - Other neutropenia - Current Meds Current Meds: Current Medications Generic Name Dose Route Start Last Admin Trade Name Freq PRN Reason Stop Dose Admin Acetaminophen 650 mg 10/07/21 13:59 10/12/21 15:49 Acetaminophen 325 Mg Tablet PO 650 mg Q4HR PRN Administration Pain 1 to 4 Al Hydroxide/Mg Hydroxide 30 ml 09/22/21 20:39 10/12/21 13:21 Mag Hydrox/Al Hydrox/Simeth 30 Ml Udc PO 30 ml Q4HR PRN Administration INDIGESTION Diltiazem HCl 120 mg 09/27/21 07:35 10/12/21 08:59 Diltiazem Cd 120 Mg Capsule PO 120 mg DAILY SPENCER Administration Enoxaparin Sodium 40 mg 09/19/21 09:00 10/12/21 08:59 Enoxaparin 40 Mg/0.4 Ml Syringe SUBQ 40 mg DAILY SPENCER Administration Heparin Sodium (Beef Lung) 30 - 50 unit 09/26/21 16:30 10/09/21 02:44 Heparin Flush 50 Units/5 Ml Syringe IVP 50 unit PRN PRN Administration Port Protocol (<24 hours) Sodium Chloride 500 mls @ 20 mls/hr 09/29/21 08:53 10/07/21 13:00 Normal Saline 0.9% IV Infused Q24H PRN Infusion TKO RATE Lactobacillus Rhamnosus 1 cap 10/12/21 17:00 10/12/21 16:55 Lactobacillus Rhamnosus Gg Capsule PO 1 cap DAILY SPENCER Administration Lidocaine HCl 2 ml 10/03/21 15:01 10/10/21 22:21 Lidocaine Jelly 2% 6 Ml Jel.Pf.Thierry TOP 2 ml Q4H PRN Administration PAIN Loperamide HCl 2 mg 10/08/21 13:44 10/12/21 01:34 Loperamide 2 Mg Capsule PO 2 mg QID PRN Administration Diarrhea Mineral Oil 1 applic 09/19/21 16:51 10/10/21 10:55 Min Oil/Dimethicon/Coconut Oil 92 Gm Tube TOP 1 applic PRN PRN Administration Skin Care Morphine Sulfate 2 mg 09/18/21 22:41 09/27/21 17:57 Morphine 2 Mg/Ml Carpuject IVP 2 mg Q2HR PRN Administration Pain 8 to 10 Multi-Ingredient Ointment 1 applic 10/02/21 09:11 10/12/21 01:34 Zinc Oxide 20% Oint 30 Gm Tube TOP 1 applic PRN PRN Administration Skin Care Multivitamins/Minerals 1 tab 10/12/21 16:00 10/12/21 15:50 Multivitamin W/Minerals Tablet PO 1 tab DAILYWM SPENCER Administration Ondansetron HCl 4 mg 09/19/21 01:56 09/27/21 23:39 Ondansetron 4 Mg/2 Ml Vial IVP 4 mg Q4HR PRN Administration Nausea / Vomiting Oxycodone HCl 5 mg 09/18/21 22:41 09/19/21 16:40 Oxycodone 5 Mg Tablet PO 5 mg Q4HR PRN Administration Pain 5 to 7 Pantoprazole Sodium 40 mg 09/27/21 07:00 10/12/21 06:07 Pantoprazole 40 Mg Tablet PO 40 mg QDAC SPENCER Administration Psyllium Hydrophilic Mucilloid 1 packet 09/30/21 10:44 09/30/21 14:09 Psyllium Packet PO 1 packet DAILY PRN Administration Constipation Sodium Chloride 10 ml 09/19/21 01:00 10/12/21 16:55 Sodium Chloride Flush 0.9% 10 Ml Syringe IVP 10 ml 0100,0900,1700 SPENCER Administration Sodium Chloride 10 ml 09/18/21 22:41 10/09/21 19:02 Sodium Chloride Flush 0.9% 10 Ml Syringe IVP 10 ml PRN PRN Administration NEEDED PER PROVIDER ORDERS Tamsulosin HCl 0.4 mg 10/01/21 09:00 10/12/21 08:59 Tamsulosin 0.4 Mg Capsule PO 0.4 mg DAILY SPENCER Administration - Lab Result Fish Bone Diagrams: 10/12/21 08:43 10/12/21 08:43 - Additional Planning My Orders: My Active Orders 10/12/21 16:00 Multivitamin W/Minerals [Theragran M] 1 tab PO DAILYWM 10/12/21 17:00 Lactobacillus Rhamnosus GG [Culturelle] 1 cap PO DAILY 10/13/21 05:00 BMP - BASIC METABOLIC PANEL [CHEM] DAILYLAB CBC - COMP BLD CT W/AUTO DIFF [HEME] DAILYLAB 10/14/21 05:00 BMP - BASIC METABOLIC PANEL [CHEM] DAILYLAB CBC - COMP BLD CT W/AUTO DIFF [HEME] DAILYLAB 10/15/21 05:00 BMP - BASIC METABOLIC PANEL [CHEM] DAILYLAB CBC - COMP BLD CT W/AUTO DIFF [HEME] DAILYLAB 10/16/21 05:00 BMP - BASIC METABOLIC PANEL [CHEM] DAILYLAB CBC - COMP BLD CT W/AUTO DIFF [HEME] DAILYLAB 10/17/21 05:00 BMP - BASIC METABOLIC PANEL [CHEM] DAILYLAB CBC - COMP BLD CT W/AUTO DIFF [HEME] DAILYLAB Subjective - Subjective Patient Reports: Other (Patient complained of abdominal cramps after lunch today. He had chicken soup, Ensure and milk for lunch. Denies any other complaints.) Objective Vital Signs: Vital Signs - 24 hr 10/11/21 10/12/21 10/12/21 23:31 08:14 16:09 Temperature 36.3 C L 36.8 C 36.3 C L Heart Rate [ 85 90 89 Brachial] Respiratory 16 18 16 Rate Blood Pressure 102/51 L 100/54 L 114/52 L [Right Brachial artery] O2 Saturation 97 99 99 Oxygen O2 Source Room air I&O (Last 24 Hrs): Intake and Output Totals x24h 10/10/21 10/11/21 10/12/21 23:59 23:59 23:59 Intake Total 2490 650 1840 Output Total 1150 1275 625 Balance 1340 -625 1215 Comments/Notes: General: Alert, Oriented x3, No acute distress HEENT: PERRLA, EOMI Neck: Supple, No JVD Neuro: Alert, Oriented Times 3 Cardiovascular: Regular rate, Normal S1, Normal S2 Respiratory: Chest non-tender, No respiratory distress Abdomen: Soft, Other (Hyper resonant bowel sounds) Extremities: No clubbing, No cyanosis, No edema Skin: No rashes, No breakdown, No significant lesion - Results Results: Laboratory Results WBC 3.9 x10^3/uL (4.8-10.8) L 10/12/21 08:43 RBC 2.79 10^6/uL (4.70-6.10) L 10/12/21 08:43 Hgb 9.1 g/dL (14.0-18.0) L 10/12/21 08:43 Hct 29.4 % (42.0-52.0) L 10/12/21 08:43 MCV 105.4 fL (80.0-94.0) H 10/12/21 08:43 MCH 32.6 pg (27.0-31.0) H 10/12/21 08:43 MCHC 31.0 g/dL (32.0-36.0) L 10/12/21 08:43 RDW 17.8 % (12.0-15.0) H 10/12/21 08:43 Plt Count 290 10^3/uL (130-450) 10/12/21 08:43 MPV 9.4 fL (7.4-11.4) 10/12/21 08:43 Neut # (Auto) 2.5 10^3/uL (1.5-6.6) 10/12/21 08:43 Lymph # (Auto) 0.9 10^3/uL (1.5-3.5) L 10/12/21 08:43 [place] # (Auto) 0.4 10^3/uL (0.0-1.0) 10/12/21 08:43 Eos # (Auto) 0.1 10^3/uL (0.0-0.7) 10/12/21 08:43 Baso # (Auto) 0.0 10^3/uL (0.0-0.1) 10/12/21 08:43 Absolute Nucleated RBC 0.00 x10^3/uL 10/12/21 08:43 Total Counted 100 10/03/21 05:45 Band Neuts % (Manual) 2 % (0-10) 10/03/21 05:45 Abnorm Lymph % (Manual) 0 % 10/03/21 05:45 Metamyelocytes % 1 % (-0) H 09/23/21 04:15 Myelocytes % 1 % (-0) H 09/29/21 04:55 Nucleated RBC % 0.0 /100WBC 10/12/21 08:43 Neutrophils # (Manual) 3.7 10^3/uL (1.5-6.6) 10/03/21 05:45 Lymphocytes # (Manual) 0.8 10^3/uL (1.5-3.5) L 10/03/21 05:45 Monocytes # (Manual) 0.2 10^3/uL (0.0-1.0) 10/03/21 05:45 Eosinophils # (Manual) 0.0 10^3/uL (0-0.7) 10/03/21 05:45 Basophils # (Manual) 0.0 10^3/uL (0-0.1) 10/03/21 05:45 Nucleated RBCs 2 % 09/27/21 14:23 Differential Comment MANUAL DIFFERENTIAL 10/03/21 05:45 Manual Slide Review Indicated 09/24/21 09:11 WBC Morphology NORMAL APPEARANCE (NORMAL) 10/03/21 05:45 Platelet Estimate NORMAL (130-450,000) (NORMAL) 10/03/21 05:45 Platelet Morphology NORMAL APPEARANCE (NORMAL) 10/03/21 05:45 RBC Morph Micro Appear 1+ MACROCYTOSIS (NORMAL) 1+ ANISOCYTOSIS (NORMAL) 10/03/21 05:45 RBC Morph Micro Appear 1+ MACROCYTOSIS (NORMAL) 1+ ANISOCYTOSIS (NORMAL) 10/03/21 05:45 D-Dimer 925.3 ng/mL (200.0-255.0) H 09/18/21 20:50 Bld Gas Analysis Time 1212 09/20/21 12:00 Sample Site RIGHT RADIAL 09/20/21 12:00 ABG pH 7.43 (7.35-7.45) 09/20/21 12:00 ABG pCO2 23 mmHg (34-45) L* 09/20/21 12:00 ABG pO2 84 mmHg (80-100) 09/20/21 12:00 ABG HCO3 14.6 mmol/L (22.0-26.0) L 09/20/21 12:00 ABG Total CO2 15.3 MMOL/L (21.0-29.0) L 09/20/21 12:00 ABG O2 Saturation 97 % (94-98) 09/20/21 12:00 ABG Base Excess -7.8 mmol/L (-2.0-3.0) L 09/20/21 12:00 Pineda Test POSITIVE 09/20/21 12:00 VBG pH 7.526 (7.31-7.41) H 10/01/21 15:36 VBG pCO2 18.3 mmHg (41-51) L 10/01/21 15:36 VBG pO2 52.7 mmHg (25-47) H 10/01/21 15:36 VBG HCO3 14.8 mmol/L (23-28) L 10/01/21 15:36 VBG Total CO2 15.4 mmol/L (24-29) L 10/01/21 15:36 VBG O2 Saturation 91.6 % (60-80) H 10/01/21 15:36 VBG Base Excess -5.9 mmol/L (-2 - +2) L 10/01/21 15:36 Ionized Calcium 1.09 mmol/L (1.15-1.33) L 09/26/21 04:11 Room Air YES 09/20/21 12:00 O2 Delivery Device BiPAP 09/18/21 21:15 FiO2 100.00 09/18/21 21:15 EPAP 5 cmH2O 09/18/21 21:15 IPAP 12 cmH2O 09/18/21 21:15 Sodium 136 mmol/L (135-145) 10/12/21 08:43 Potassium 3.3 mmol/L (3.5-5.0) L 10/12/21 08:43 Chloride 105 mmol/L (101-111) 10/12/21 08:43 Carbon Dioxide 24 mmol/L (21-32) 10/12/21 08:43 Anion Gap 7.0 (6-13) 10/12/21 08:43 BUN 10 mg/dL (6-20) 10/12/21 08:43 Creatinine 0.7 mg/dL (0.6-1.2) 10/12/21 08:43 Estimated GFR (MDRD) 110 (>89) 10/12/21 08:43 Glucose 98 mg/dL (70-100) 10/12/21 08:43 POC Whole Bld Glucose 121 mg/dL (70 - 100) H 10/02/21 00:07 Lactic Acid 1.9 mmol/L (0.5-2.2) 09/28/21 01:14 Calcium 7.7 mg/dL (8.5-10.3) L 10/12/21 08:43 Phosphorus 2.8 mg/dL (2.5-4.6) 10/02/21 06:10 Magnesium 1.9 mg/dL (1.7-2.8) 10/02/21 06:10 Total Bilirubin 0.3 mg/dL (0.2-1.0) 10/03/21 05:45 Direct Bilirubin 0.1 mg/dL (0.1-0.5) 10/03/21 05:45 AST 16 IU/L (10-42) 10/03/21 05:45 ALT 15 IU/L (10-60) 10/03/21 05:45 Alkaline Phosphatase 55 IU/L (42-121) 10/03/21 05:45 Troponin I High Sens 56.4 ng/L (2.3-19.7) H* 09/19/21 20:39 C-Reactive Protein 19.0 mg/dL (0-1.0) H 09/28/21 05:20 B-Natriuretic Peptide 149 pg/mL (5-100) H 09/18/21 20:50 Total Protein 3.9 g/dL (6.7-8.2) L 10/03/21 05:45 Albumin 1.0 g/dL (3.2-5.5) L 10/03/21 05:45 Globulin 2.9 g/dL (2.1-4.2) 10/03/21 05:45 Albumin/Globulin Ratio 0.4 (1.0-2.2) L 10/02/21 06:10 Prealbumin 10 mg/dL (18-45) L 10/02/21 06:10 Triglycerides 172 mg/dL (-149) H 10/02/21 06:10 Lipase 17 U/L (22-51) L 09/18/21 20:50 Vitamin B12 3949 pg/mL (180-914) H 10/05/21 06:10 Folate 10.52 ng/mL (5.90 - >24.8) 10/05/21 06:10 TSH 6.26 uIU/mL (0.34-5.60) H 09/26/21 12:30 Nasal Adenovirus (PCR) NOT DETECTED 09/18/21 21:15 Nasal B. parapertussis DNA (PCR) NOT DETECTED 09/18/21 21:15 Nasal Coronavir 229E PCR NOT DETECTED 09/18/21 21:15 Nasal Coronavir HKU1 PCR NOT DETECTED 09/18/21 21:15 Nasal Coronavir NL63 PCR NOT DETECTED 09/18/21 21:15 Nasal Coronavir OC43 PCR NOT DETECTED 09/18/21 21:15 Nasal Enterovir/Rhinovir PCR NOT DETECTED 09/18/21 21:15 Nasal Influenza B PCR NOT DETECTED 09/18/21 21:15 Nasal Influenza A PCR NOT DETECTED 09/18/21 21:15 Nasal Parainfluen 1 PCR NOT DETECTED 09/18/21 21:15 Nasal Parainfluen 2 PCR NOT DETECTED 09/18/21 21:15 Nasal Parainfluen 3 PCR NOT DETECTED 09/18/21 21:15 Nasal Parainfluen 4 PCR NOT DETECTED 09/18/21 21:15 Nasal RSV (PCR) NOT DETECTED 09/18/21 21:15 Nasal Screen MRSA (PCR) NEGATIVE (NEGATIVE) 09/18/21 23:50 Nasal B.pertussis DNA PCR NOT DETECTED 09/18/21 21:15 Nasal C.pneumoniae (PCR) NOT DETECTED 09/18/21 21:15 Sohail Human Metapneumo PCR NOT DETECTED 09/18/21 21:15 Nasal M.pneumoniae (PCR) NOT DETECTED 09/18/21 21:15 Nasal SARS-CoV-2 (PCR) NOT DETECTED 09/18/21 21:15 Stl C. diff Tox B Gene NEGATIVE (NEGATIVE) 09/28/21 21:27 Last Dose Date 09/2009/21/21 05:25 Last Dose Time 1401 09/21/21 05:25 Digoxin 0.8 ng/mL 09/21/21 05:25 Ref Lab Test Result REPORT 09/22/21 01:55 - Procedures Procedures: Procedures EXCISION OF SIGMOID COLON, ENDO, DIAGN (06/17/21) ABX Reporting Has patient been on IV antibiotics over the past 48 hours?: No
[2021-10-13] MEDS: ACETAMINOPHEN 325 MG TABLET PO PRN ×2 (00:28→15:44)
[2021-10-13] MEDS: SODIUM CHLORIDE FLUSH 0.9% 10 ML SYRINGE IVP SCH ×3 (03:40→21:09)
[2021-10-13] MEDS: PANTOPRAZOLE 40 MG TABLET PO SCH (05:53)
[2021-10-13 05:54] LABS: BASOPHILS % (AUTO) 0.4 %; EOSINOPHILS # (AUTO) 0.1 10^3/uL (0.0-0.7); EOSINOPHILS % (AUTO) 1.4 %; HCT - HEMATOCRIT 26.7 % (42.0-52.0); HGB - HEMOGLOBIN 8.4 g/dL (14.0-18.0); LYMPHOCYTES # (AUTO) 0.9 10^3/uL (1.5-3.5); LYMPHOCYTES % (AUTO) 15.6 %; MEAN CORPUSCULAR HEMOGLOBIN 33.2 pg (27.0-31.0); MEAN CORPUSCULAR HGB CONC 31.5 g/dL (32.0-36.0); MEAN CORPUSCULAR VOLUME 105.5 fL (80.0-94.0); MEAN PLATELET VOLUME 9.1 fL (7.4-11.4); MONOCYTES # (AUTO) 0.5 10^3/uL (0.0-1.0); MONOCYTES % (AUTO) 9.2 %; NEUTROPHILS % (AUTO) 72.7 %; PLT - PLATELET COUNT 264 10^3/uL (130-450); RED BLOOD COUNT 2.53 10^6/uL (4.70-6.10); RED CELL DISTRIBUTION WIDTH 17.5 % (12.0-15.0); WHITE BLOOD COUNT 5.5 x10^3/uL (4.8-10.8)
[2021-10-13 06:03] LABS: CALCIUM 7.6 mg/dL (8.5-10.3); CREATININE 0.6 mg/dL (0.6-1.2); POTASSIUM 3.5 mmol/L (3.5-5.0)
[2021-10-13] MEDS: MULTIVITAMIN W/MINERALS TABLET PO SCH (08:03)
[2021-10-13 08:43] LABS: % IRON SATURATION 14 % (20-50); IRON 24 ug/dL (45-182); TOTAL IRON BINDING CAPACITY 171 ug/dL (250-450); TRANSFERRIN 122 mg/dL (180-329)
[2021-10-13] MEDS: LACTOBACILLUS RHAMNOSUS GG CAPSULE PO SCH (08:51)
[2021-10-13] MEDS: TAMSULOSIN 0.4 MG CAPSULE PO SCH (08:51)
[2021-10-13] MEDS: ENOXAPARIN 40 MG/0.4 ML SYRINGE SUBQ SCH (08:52)
[2021-10-13] MEDS: METOPROLOL TARTRATE 25 MG TABLET PO SCH ×2 (08:59→21:08)
--- NOTE | 2021-10-13 11:00 | PROVIDER PROGRESS NOTE ---
Subjective - Prog Note Date Prog Note Date: 10/13/21 - Subjective Subjective: He reports feeling okay overall. Still having diarrhea about 5-6 bowel movements a day. He denies abdominal pain but does complain of abdominal bloating and "gas pain." Denies any nausea or vomiting. Current Medications - Current Medications Current Medications: Active Medications Acetaminophen (Acetaminophen 325 Mg Tablet) 650 mg PO Q4HR PRN PRN Reason: Pain 1 to 4 Last Admin: 10/13/21 15:44 Dose: 650 mg Documented by: Al Hydroxide/Mg Hydroxide (Mag Hydrox/Al Hydrox/Simeth 30 Ml Udc) 30 ml PO Q4HR PRN PRN Reason: INDIGESTION Last Admin: 10/12/21 13:21 Dose: 30 ml Documented by: Enoxaparin Sodium (Enoxaparin 40 Mg/0.4 Ml Syringe) 40 mg SUBQ DAILY [facility] Last Admin: 10/13/21 08:52 Dose: 40 mg Documented by: Ferrous Gluconate (Ferrous Gluconate 324 Mg Tablet) 324 mg PO DAILYWM [facility] Last Admin: 10/13/21 15:44 Dose: 324 mg Documented by: Heparin Sodium (Beef Lung) (Heparin Flush 50 Units/5 Ml Syringe) 30 - 50 unit IVP PRN PRN PRN Reason: Port Protocol (<24 hours) Last Admin: 10/09/21 02:44 Dose: 50 unit Documented by: Sodium Chloride (Normal Saline 0.9%) 500 mls @ 20 mls/hr IV Q24H PRN PRN Reason: TKO RATE Last Infusion: 10/07/21 13:00 Dose: Infused Documented by: Lactobacillus Rhamnosus (Lactobacillus Rhamnosus Gg Capsule) 1 cap PO DAILY [facility] Last Admin: 10/13/21 08:51 Dose: 1 cap Documented by: Lidocaine HCl (Lidocaine Jelly 2% 6 Ml Jel.Pf.Thierry) 2 ml TOP Q4H PRN PRN Reason: PAIN Last Admin: 10/10/21 22:21 Dose: 2 ml Documented by: Loperamide HCl (Loperamide 2 Mg Capsule) 2 mg PO QID PRN PRN Reason: Diarrhea Last Admin: 10/12/21 01:34 Dose: 2 mg Documented by: Metoprolol Tartrate (Metoprolol Tartrate 25 Mg Tablet) 12.5 mg PO BID [facility] Last Admin: 10/13/21 08:59 Dose: Not Given Documented by: Mineral Oil (Min Oil/Dimethicon/Coconut Oil 92 Gm Tube) 1 applic TOP PRN PRN PRN Reason: Skin Care Last Admin: 10/10/21 10:55 Dose: 1 applic Documented by: Multi-Ingredient Ointment (Zinc Oxide 20% Oint 30 Gm Tube) 1 applic TOP PRN PRN PRN Reason: Skin Care Last Admin: 10/13/21 14:38 Dose: 1 applic Documented by: Multivitamins/Minerals (Multivitamin W/Minerals Tablet) 1 tab PO DAILYWM [facility] Last Admin: 10/13/21 08:03 Dose: 1 tab Documented by: Ondansetron HCl (Ondansetron Odt 4 Mg Tablet) 4 mg TL Q6HR PRN PRN Reason: Nausea / Vomiting Ondansetron HCl (Ondansetron 4 Mg/2 Ml Vial) 4 mg IVP Q4HR PRN PRN Reason: Nausea / Vomiting Last Admin: 09/27/21 23:39 Dose: 4 mg Documented by: Oxycodone HCl (Oxycodone 5 Mg Tablet) 5 mg PO Q4HR PRN PRN Reason: Pain 5 to 7 Last Admin: 09/19/21 16:40 Dose: 5 mg Documented by: Pantoprazole Sodium (Pantoprazole 40 Mg Tablet) 40 mg PO QDAC [facility] Last Admin: 10/13/21 05:53 Dose: 40 mg Documented by: Psyllium Hydrophilic Mucilloid (Psyllium Packet) 1 packet PO DAILY PRN PRN Reason: Constipation Last Admin: 09/30/21 14:09 Dose: 1 packet Documented by: Simethicone (Simethicone Chew 80 Mg Tablet) 80 mg PO Q6HR PRN PRN Reason: Gas Last Admin: 10/13/21 14:42 Dose: 80 mg Documented by: Sodium Chloride (Sodium Chloride Flush 0.9% 10 Ml Syringe) 10 ml IVP 0 100,0900,1700 [facility] Last Admin: 10/13/21 08:52 Dose: 10 ml Documented by: Sodium Chloride (Sodium Chloride Flush 0.9% 10 Ml Syringe) 10 ml IVP PRN PRN PRN Reason: NEEDED PER PROVIDER ORDERS Last Admin: 10/09/21 19:02 Dose: 10 ml Documented by: Tamsulosin HCl (Tamsulosin 0.4 Mg Capsule) 0.4 mg PO DAILY [facility] Last Admin: 10/13/21 08:51 Dose: 0.4 mg Documented by: Potassium Chloride [K-Dur] 40 meq PO BID 09/08/21 Diphenoxylate/Atropine [Lomotil] 2.5 mg PO PRN PRN 09/15/21 Objective - Vital Signs/Intake & Output Reviewed Vital Signs: Yes Vital Signs: Vital Signs x48h Temp Pulse Resp BP BP Pulse Ox 10/13/21 08:59 102/47 L 10/13/21 07:31 36.5 C 87 17 98/54 L 100 Intake & Output: Intake & Output 10/10/21 10/11/21 10/12/21 10/13/21 23:59 23:59 23:59 23:59 Intake Total 2490 650 1940 966 Output Total 1150 1275 975 600 Balance 1340 -625 965 366 - Objective General Appearance: positive: No acute distress, Alert Eyes Bilateral: positive: Normal inspection, Conjunctivae nml ENT: positive: ENT inspection nml Neck: positive: Nml inspection Respiratory: positive: No respiratory distress. negative: Wheezes Cardiovascular: positive: Regular rate & rhythm. negative: Tachycardia Abdomen: positive: Non-tender, Nml bowel sounds, No distention. negative: Tenderness Skin: positive: Warm, Dry Extremities: positive: No pedal edema Neurologic/Psychiatric: negative: Disoriented to person, Disoriented to place - Lab Results Fish Bones: 10/13/21 05:50 10/13/21 05:50 Other Labs: Lab Results x24hrs 10/13/21 10/13/21 10/13/21 Range/Units 05:50 05:50 05:50 WBC (4.8-10.8) x10^3/uL RBC (4.70-6.10) 10^6/uL Hgb (14.0-18.0) g/dL Hct (42.0-52.0) % MCV (80.0-94.0) fL MCH (27.0-31.0) pg MCHC (32.0-36.0) g/dL RDW (12.0-15.0) % Plt Count (130-450) 10^3/uL MPV (7.4-11.4) fL Neut # (Auto) (1.5-6.6) 10^3/uL Lymph # (Auto) (1.5-3.5) 10^3/uL [place] # (Auto) (0.0-1.0) 10^3/uL Eos # (Auto) (0.0-0.7) 10^3/uL Baso # (Auto) (0.0-0.1) 10^3/uL Absolute Nucleated RBC x10^3/uL Nucleated RBC % /100WBC Sodium 136 (135-145) mmol/L Potassium 3.5 (3.5-5.0) mmol/L Chloride 106 (101-111) mmol/L Carbon Dioxide 25 (21-32) mmol/L Anion Gap 5.0 L (6-13) BUN 13 (6-20) mg/dL Creatinine 0.6 (0.6-1.2) mg/dL Estimated GFR (MDRD) 132 (>89) Glucose 93 (70-100) mg/dL Calcium 7.6 L (8.5-10.3) mg/dL Iron 24 L (45-182) ug/dL TIBC 171 L (250-450) ug/dL % Saturation 14 L (20-50) % Transferrin 122 L (180-329) mg/dL Ferritin 239.2 (23.9-336.2) ng/mL 10/13/21 Range/Units 05:50 WBC 5.5 (4.8-10.8) x10^3/uL RBC 2.53 L (4.70-6.10) 10^6/uL Hgb 8.4 L (14.0-18.0) g/dL Hct 26.7 L (42.0-52.0) % MCV 105.5 H (80.0-94.0) fL MCH 33.2 H (27.0-31.0) pg MCHC 31.5 L (32.0-36.0) g/dL RDW 17.5 H (12.0-15.0) % Plt Count 264 (130-450) 10^3/uL MPV 9.1 (7.4-11.4) fL Neut # (Auto) 4.0 (1.5-6.6) 10^3/uL Lymph # (Auto) 0.9 L (1.5-3.5) 10^3/uL [place] # (Auto) 0.5 (0.0-1.0) 10^3/uL Eos # (Auto) 0.1 (0.0-0.7) 10^3/uL Baso # (Auto) 0.0 (0.0-0.1) 10^3/uL Absolute Nucleated RBC 0.00 x10^3/uL Nucleated RBC % 0.0 /100WBC Sodium (135-145) mmol/L Potassium (3.5-5.0) mmol/L Chloride (101-111) mmol/L Carbon Dioxide (21-32) mmol/L Anion Gap (6-13) BUN (6-20) mg/dL Creatinine (0.6-1.2) mg/dL Estimated GFR (MDRD) (>89) Glucose (70-100) mg/dL Calcium (8.5-10.3) mg/dL Iron (45-182) ug/dL TIBC (250-450) ug/dL % Saturation (20-50) % Transferrin (180-329) mg/dL Ferritin (23.9-336.2) ng/mL Assessment/Plan - Problem List (1) Hypotension Impression: His blood pressure has been soft at times. We will discontinue the diltiazem and start him on low-dose metoprolol to see if this will help with his blood pressure. He is currently asymptomatic the most part his blood pressures have been in the 100 systolic. (2) Chemotherapy induced neutropenia Impression: This is ongoing but stable. C. difficile is negative as well as stool cultures. We will continue with Imodium as needed. No lactose with his diet. (3) Physical deconditioning Impression: Slowly improving but ongoing. Given his prolonged hospitalization, he now requires a SNF. He will continue to work with physical therapy and is pending placement. (4) Neutropenic colitis Impression: Now resolved. He has been tolerating a diet and antibiotics have been discontinued. (5) SVT (supraventricular tachycardia) Impression: Resolved. We will switch without diltiazem to metoprolol given his soft blood pressures (6) Adenocarcinoma of rectum, stage 3 Impression: Stable but ongoing. He will need follow-up with his oncologist once discharged to discuss further treatment. He was previously receiving FOLFOX. (7) Acute kidney injury Impression: Resolved. (8) Adynamic ileus Impression: Resolved.
[2021-10-13] MEDS ORDERED: SIMETHICONE CHEW 80 MG TABLET PO PRN (14:25)
[2021-10-13] MEDS: ZINC OXIDE 20% OINT 30 GM TUBE TOP PRN (14:38)
[2021-10-13] MEDS: FERROUS GLUCONATE 324 MG TABLET PO SCH (15:44)
[2021-10-14] MEDS: SODIUM CHLORIDE FLUSH 0.9% 10 ML SYRINGE IVP SCH ×4 (04:22→23:50)
[2021-10-14] MEDS: LOPERAMIDE 2 MG CAPSULE PO PRN (06:14)
[2021-10-14] MEDS: PANTOPRAZOLE 40 MG TABLET PO SCH (07:02)
[2021-10-14 07:51] LABS: BASOPHILS % (AUTO) 0.3 %; EOSINOPHILS # (AUTO) 0.1 10^3/uL (0.0-0.7); EOSINOPHILS % (AUTO) 2.8 %; HCT - HEMATOCRIT 28.7 % (42.0-52.0); HGB - HEMOGLOBIN 9.1 g/dL (14.0-18.0); LYMPHOCYTES # (AUTO) 0.8 10^3/uL (1.5-3.5); LYMPHOCYTES % (AUTO) 23.7 %; MEAN CORPUSCULAR HEMOGLOBIN 33.5 pg (27.0-31.0); MEAN CORPUSCULAR HGB CONC 31.7 g/dL (32.0-36.0); MEAN CORPUSCULAR VOLUME 105.5 fL (80.0-94.0); MEAN PLATELET VOLUME 9.1 fL (7.4-11.4); MONOCYTES # (AUTO) 0.4 10^3/uL (0.0-1.0); MONOCYTES % (AUTO) 13.3 %; NEUTROPHILS # (AUTO) 1.9 10^3/uL (1.5-6.6); PLT - PLATELET COUNT 311 10^3/uL (130-450); RED BLOOD COUNT 2.72 10^6/uL (4.70-6.10); WHITE BLOOD COUNT 3.2 x10^3/uL (4.8-10.8)
[2021-10-14 07:53] LABS: CALCIUM 7.7 mg/dL (8.5-10.3); CREATININE 0.5 mg/dL (0.6-1.2); POTASSIUM 3.3 mmol/L (3.5-5.0)
[2021-10-14] MEDS ORDERED: FERROUS SULFATE 325 MG TABLET PO SCH (08:00)
[2021-10-14] MEDS: LACTOBACILLUS RHAMNOSUS GG CAPSULE PO SCH (08:31)
[2021-10-14] MEDS: ENOXAPARIN 40 MG/0.4 ML SYRINGE SUBQ SCH (08:31)
[2021-10-14] MEDS: MULTIVITAMIN W/MINERALS TABLET PO SCH (08:31)
[2021-10-14] MEDS: FERROUS GLUCONATE 324 MG TABLET PO SCH (08:31)
[2021-10-14] MEDS: METOPROLOL TARTRATE 25 MG TABLET PO SCH ×2 (08:32→20:59)
[2021-10-14] MEDS: TAMSULOSIN 0.4 MG CAPSULE PO SCH (08:41)
[2021-10-14] MEDS: ACETAMINOPHEN 325 MG TABLET PO PRN (13:39)
[2021-10-14] MEDS: SODIUM CHLORIDE FLUSH 0.9% 10 ML SYRINGE IVP PRN ×2 (15:52→23:50)
[2021-10-14] MEDS: POTASSIUM CHLORIDE 20 MEQ TABLET PO SCH (17:29)
[2021-10-14] MEDS ORDERED: LOPERAMIDE 2 MG CAPSULE PO PRN (18:31)
--- NOTE | 2021-10-14 18:34 | PROVIDER PROGRESS NOTE ---
Subjective - Prog Note Date Prog Note Date: 10/14/21 - Subjective Subjective: He had one episode abdominal pain this morning which is located in the epigastric region. He states is now nearly resolved. He still having diarrhea and having movement every 4 hours. He reports getting the sudden urge to go and sometimes he cannot make it to the bathroom in time. Current Medications - Current Medications Current Medications: Active Medications Acetaminophen (Acetaminophen 325 Mg Tablet) 650 mg PO Q4HR PRN PRN Reason: Pain 1 to 4 Last Admin: 10/14/21 13:39 Dose: 650 mg Documented by: Al Hydroxide/Mg Hydroxide (Mag Hydrox/Al Hydrox/Simeth 30 Ml Udc) 30 ml PO Q4HR PRN PRN Reason: INDIGESTION Last Admin: 10/12/21 13:21 Dose: 30 ml Documented by: Enoxaparin Sodium (Enoxaparin 40 Mg/0.4 Ml Syringe) 40 mg SUBQ DAILY [facility] Last Admin: 10/14/21 08:31 Dose: 40 mg Documented by: Ferrous Gluconate (Ferrous Gluconate 324 Mg Tablet) 324 mg PO DAILYWM [facility] Last Admin: 10/14/21 08:31 Dose: 324 mg Documented by: Heparin Sodium (Beef Lung) (Heparin Flush 50 Units/5 Ml Syringe) 30 - 50 unit IVP PRN PRN PRN Reason: Port Protocol (<24 hours) Last Admin: 10/09/21 02:44 Dose: 50 unit Documented by: Sodium Chloride (Normal Saline 0.9%) 500 mls @ 20 mls/hr IV Q24H PRN PRN Reason: TKO RATE Last Infusion: 10/07/21 13:00 Dose: Infused Documented by: Lactobacillus Rhamnosus (Lactobacillus Rhamnosus Gg Capsule) 1 cap PO DAILY [facility] Last Admin: 10/14/21 08:31 Dose: 1 cap Documented by: Lidocaine HCl (Lidocaine Jelly 2% 6 Ml Jel.Pf.Thierry) 2 ml TOP Q4H PRN PRN Reason: PAIN Last Admin: 10/10/21 22:21 Dose: 2 ml Documented by: Loperamide HCl (Loperamide 2 Mg Capsule) 2 mg PO Q4HR PRN PRN Reason: Diarrhea Metoprolol Tartrate (Metoprolol Tartrate 25 Mg Tablet) 12.5 mg PO BID [facility] Last Admin: 10/14/21 08:32 Dose: 12.5 mg Documented by: Mineral Oil (Min Oil/Dimethicon/Coconut Oil 92 Gm Tube) 1 applic TOP PRN PRN PRN Reason: Skin Care Last Admin: 10/10/21 10:55 Dose: 1 applic Documented by: Multi-Ingredient Ointment (Zinc Oxide 20% Oint 30 Gm Tube) 1 applic TOP PRN PRN PRN Reason: Skin Care Last Admin: 10/13/21 14:38 Dose: 1 applic Documented by: Multivitamins/Minerals (Multivitamin W/Minerals Tablet) 1 tab PO DAILYWM [facility] Last Admin: 10/14/21 08:31 Dose: 1 tab Documented by: Ondansetron HCl (Ondansetron Odt 4 Mg Tablet) 4 mg TL Q6HR PRN PRN Reason: Nausea / Vomiting Ondansetron HCl (Ondansetron 4 Mg/2 Ml Vial) 4 mg IVP Q4HR PRN PRN Reason: Nausea / Vomiting Last Admin: 09/27/21 23:39 Dose: 4 mg Documented by: Oxycodone HCl (Oxycodone 5 Mg Tablet) 5 mg PO Q4HR PRN PRN Reason: Pain 5 to 7 Last Admin: 09/19/21 16:40 Dose: 5 mg Documented by: Pantoprazole Sodium (Pantoprazole 40 Mg Tablet) 40 mg PO QDAC [facility] Last Admin: 10/14/21 07:02 Dose: 40 mg Documented by: Potassium Chloride (Potassium Chloride 20 Meq Tablet) 20 meq PO DAILYWM [facility] Last Admin: 10/14/21 17:29 Dose: Not Given Documented by: Psyllium Hydrophilic Mucilloid (Psyllium Packet) 1 packet PO DAILY PRN PRN Reason: Constipation Last Admin: 09/30/21 14:09 Dose: 1 packet Documented by: Simethicone (Simethicone Chew 80 Mg Tablet) 80 mg PO Q6HR PRN PRN Reason: Gas Last Admin: 10/13/21 14:42 Dose: 80 mg Documented by: Sodium Chloride (Sodium Chloride Flush 0.9% 10 Ml Syringe) 10 ml IVP 0100,0900,1700 [facility] Last Admin: 10/14/21 15:52 Dose: 10 ml Documented by: Sodium Chloride (Sodium Chloride Flush 0.9% 10 Ml Syringe) 10 ml IVP PRN PRN PRN Reason: NEEDED PER PROVIDER ORDERS Last Admin: 10/14/21 15:52 Dose: 10 ml Documented by: Tamsulosin HCl (Tamsulosin 0.4 Mg Capsule) 0.4 mg PO DAILY [facility] Last Admin: 10/14/21 08:41 Dose: 0.4 mg Documented by: Potassium Chloride [K-Dur] 40 meq PO BID 09/08/21 Diphenoxylate/Atropine [Lomotil] 2.5 mg PO PRN PRN 09/15/21 Objective - Vital Signs/Intake & Output Reviewed Vital Signs: Yes Vital Signs: Vital Signs x48h Temp Pulse Resp BP Pulse Ox 10/14/21 16:45 36.5 C 102 H 20 122/52 L 96 10/14/21 12:59 36.6 C 95 20 110/67 99 Intake & Output: Intake & Output 10/11/21 10/12/21 10/13/21 10/14/21 23:59 23:59 23:59 23:59 Intake Total 650 1940 2140 1302 Output Total 1275 975 900 800 Balance -375 901 6723 502 - Objective General Appearance: positive: No acute distress, Alert Eyes Bilateral: positive: Normal inspection, Conjunctivae nml ENT: positive: ENT inspection nml Neck: positive: Nml inspection Respiratory: positive: No respiratory distress. negative: Wheezes, Rales Cardiovascular: positive: Regular rate & rhythm. negative: Tachycardia, Systolic murmur Abdomen: positive: Tenderness (Mild epigastric tenderness.), Abnml bowel sounds (Hyperactive.). negative: Guarding, Rebound Skin: positive: Warm, Dry Neurologic/Psychiatric: negative: Disoriented to person, Disoriented to place - Lab Results Fish Bones: 10/14/21 07:32 10/14/21 07:32 Other Labs: Lab Results x24hrs 10/14/21 10/14/21 Range/Units 07:32 07:32 WBC 3.2 L (4.8-10.8) x10^3/uL RBC 2.72 L (4.70-6.10) 10^6/uL Hgb 9.1 L (14.0-18.0) g/dL Hct 28.7 L (42.0-52.0) % MCV 105.5 H (80.0-94.0) fL MCH 33.5 H (27.0-31.0) pg MCHC 31.7 L (32.0-36.0) g/dL RDW 17.0 H (12.0-15.0) % Plt Count 311 (130-450) 10^3/uL MPV 9.1 (7.4-11.4) fL Neut # (Auto) 1.9 (1.5-6.6) 10^3/uL Lymph # (Auto) 0.8 L (1.5-3.5) 10^3/uL [place] # (Auto) 0.4 (0.0-1.0) 10^3/uL Eos # (Auto) 0.1 (0.0-0.7) 10^3/uL Baso # (Auto) 0.0 (0.0-0.1) 10^3/uL Absolute Nucleated RBC 0.00 x10^3/uL Nucleated RBC % 0.0 /100WBC Sodium 134 L (135-145) mmol/L Potassium 3.3 L (3.5-5.0) mmol/L Chloride 102 (101-111) mmol/L Carbon Dioxide 25 (21-32) mmol/L Anion Gap 7.0 (6-13) BUN 9 (6-20) mg/dL Creatinine 0.5 L (0.6-1.2) mg/dL Estimated GFR (MDRD) 163 (>89) Glucose 92 (70-100) mg/dL Calcium 7.7 L (8.5-10.3) mg/dL Assessment/Plan - Problem List (1) Hypotension Impression: His blood pressure is much improved after switching to metoprolol from diltiazem. He has been normotensive. Continue metoprolol. (2) Chemotherapy-induced diarrhea Impression: This is an ongoing problem for him. We will increase the Imodium to every 4 hours as needed instead of 4 times daily to see if this can help. He has been checked before for C. difficile which was negative. This has not been checked in over 2 weeks and given he was on prolonged antibiotics, we will recheck this 1 more time. (3) Physical deconditioning Impression: He is improving and has been able to work with physical therapy. Appreciate the recommendations regarding SNF or home with home health. (4) Neutropenic colitis Impression: Now resolved. He has been tolerating a diet and antibiotics have been discontinued. (5) SVT (supraventricular tachycardia) Impression: Resolved. He has been tolerating metoprolol well which we will continue. (6) Adenocarcinoma of rectum, stage 3 Impression: Stable but ongoing. He will need follow-up with his oncologist once discharged to discuss further treatment. He was previously receiving FOLFOX (7) Acute kidney injury Impression: Resolved. (8) Adynamic ileus Impression: Resolved.
[2021-10-15] MEDS: PANTOPRAZOLE 40 MG TABLET PO SCH (07:44)
[2021-10-15 07:59] LABS: CALCIUM 7.6 mg/dL (8.5-10.3); CREATININE 0.5 mg/dL (0.6-1.2); POTASSIUM 3.3 mmol/L (3.5-5.0)
[2021-10-15 08:07] LABS: BASOPHILS % (AUTO) 0.4 %; EOSINOPHILS # (AUTO) 0.1 10^3/uL (0.0-0.7); EOSINOPHILS % (AUTO) 1.5 %; HCT - HEMATOCRIT 29.6 % (42.0-52.0); HGB - HEMOGLOBIN 9.2 g/dL (14.0-18.0); LYMPHOCYTES # (AUTO) 0.8 10^3/uL (1.5-3.5); LYMPHOCYTES % (AUTO) 16.6 %; MEAN CORPUSCULAR HEMOGLOBIN 32.6 pg (27.0-31.0); MEAN CORPUSCULAR HGB CONC 31.1 g/dL (32.0-36.0); MEAN PLATELET VOLUME 9.2 fL (7.4-11.4); MONOCYTES # (AUTO) 0.5 10^3/uL (0.0-1.0); MONOCYTES % (AUTO) 9.9 %; NEUTROPHILS # (AUTO) 3.4 10^3/uL (1.5-6.6); PLT - PLATELET COUNT 337 10^3/uL (130-450); RED BLOOD COUNT 2.82 10^6/uL (4.70-6.10); RED CELL DISTRIBUTION WIDTH 16.9 % (12.0-15.0); WHITE BLOOD COUNT 4.8 x10^3/uL (4.8-10.8)
[2021-10-15] MEDS: MULTIVITAMIN W/MINERALS TABLET PO SCH (08:49)
[2021-10-15] MEDS: LACTOBACILLUS RHAMNOSUS GG CAPSULE PO SCH (08:49)
[2021-10-15] MEDS: POTASSIUM CHLORIDE 20 MEQ TABLET PO SCH ×3 (08:49→09:15)
[2021-10-15] MEDS: ENOXAPARIN 40 MG/0.4 ML SYRINGE SUBQ SCH (08:49)
[2021-10-15] MEDS: SODIUM CHLORIDE FLUSH 0.9% 10 ML SYRINGE IVP SCH ×2 (08:49→18:17)
[2021-10-15] MEDS: FERROUS GLUCONATE 324 MG TABLET PO SCH (08:49)
[2021-10-15] MEDS: TAMSULOSIN 0.4 MG CAPSULE PO SCH (08:50)
[2021-10-15] MEDS: METOPROLOL TARTRATE 25 MG TABLET PO SCH ×2 (08:51→21:37)
[2021-10-15] MEDS: ACETAMINOPHEN 325 MG TABLET PO PRN (12:48)
[2021-10-15] MEDS ORDERED: DEXTROSE 50% ABBOJECT 25 GM/50 ML SYRINGE IVP ONE (14:04)
--- NOTE | 2021-10-15 14:08 | PROVIDER PROGRESS NOTE ---
Subjective - Prog Note Date Prog Note Date: 10/15/21 - Subjective Subjective: Feels much worse today. He is complaining of abdominal pain that is much worse. No nausea or vomiting. He has had less bowel movements today. He is also complaining of chills and feeling quite cold. He was able to have lunch and work with physical therapy but felt much worse after ambulating with physical therapy. Current Medications - Current Medications Current Medications: Active Medications Acetaminophen (Acetaminophen 325 Mg Tablet) 650 mg PO Q4HR PRN PRN Reason: Pain 1 to 4 Last Admin: 10/15/21 12:48 Dose: 650 mg Documented by: Al Hydroxide/Mg Hydroxide (Mag Hydrox/Al Hydrox/Simeth 30 Ml Udc) 30 ml PO Q4HR PRN PRN Reason: INDIGESTION Last Admin: 10/12/21 13:21 Dose: 30 ml Documented by: Enoxaparin Sodium (Enoxaparin 40 Mg/0.4 Ml Syringe) 40 mg SUBQ DAILY [facility] Last Admin: 10/15/21 08:49 Dose: 40 mg Documented by: Ferrous Gluconate (Ferrous Gluconate 324 Mg Tablet) 324 mg PO DAILYWM [facility] Last Admin: 10/15/21 08:49 Dose: 324 mg Documented by: Heparin Sodium (Beef Lung) (Heparin Flush 50 Units/5 Ml Syringe) 30 - 50 unit IVP PRN PRN PRN Reason: Port Protocol (<24 hours) Last Admin: 10/09/21 02:44 Dose: 50 unit Documented by: Sodium Chloride (Normal Saline 0.9%) 500 mls @ 20 mls/hr IV Q24H PRN PRN Reason: TKO RATE Last Infusion: 10/07/21 13:00 Dose: Infused Documented by: Magnesium Sulfate (Magnesium Sulfate) 2 gm in 50 mls @ 50 mls/hr IV ONCE ONE Stop: 10/15/21 15:41 Lactobacillus Rhamnosus (Lactobacillus Rhamnosus Gg Capsule) 1 cap PO DAILY [facility] Last Admin: 10/15/21 08:49 Dose: 1 cap Documented by: Lidocaine HCl (Lidocaine Jelly 2% 6 Ml Jel.Pf.Thierry) 2 ml TOP Q4H PRN PRN Reason: PAIN Last Admin: 10/10/21 22:21 Dose: 2 ml Documented by: Loperamide HCl (Loperamide 2 Mg Capsule) 2 mg PO Q4HR PRN PRN Reason: Diarrhea Metoprolol Tartrate (Metoprolol Tartrate 25 Mg Tablet) 12.5 mg PO BID [facility] Last Admin: 10/15/21 08:51 Dose: 12.5 mg Documented by: Mineral Oil (Min Oil/Dimethicon/Coconut Oil 92 Gm Tube) 1 applic TOP PRN PRN PRN Reason: Skin Care Last Admin: 10/10/21 10:55 Dose: 1 applic Documented by: Multi-Ingredient Ointment (Zinc Oxide 20% Oint 30 Gm Tube) 1 applic TOP PRN PRN PRN Reason: Skin Care Last Admin: 10/13/21 14:38 Dose: 1 applic Documented by: Multivitamins/Minerals (Multivitamin W/Minerals Tablet) 1 tab PO DAILYWM [facility] Last Admin: 10/15/21 08:49 Dose: 1 tab Documented by: Ondansetron HCl (Ondansetron Odt 4 Mg Tablet) 4 mg TL Q6HR PRN PRN Reason: Nausea / Vomiting Ondansetron HCl (Ondansetron 4 Mg/2 Ml Vial) 4 mg IVP Q4HR PRN PRN Reason: Nausea / Vomiting Last Admin: 09/27/21 23:39 Dose: 4 mg Documented by: Oxycodone HCl (Oxycodone 5 Mg Tablet) 5 mg PO Q4HR PRN PRN Reason: Pain 5 to 7 Last Admin: 09/19/21 16:40 Dose: 5 mg Documented by: Pantoprazole Sodium (Pantoprazole 40 Mg Tablet) 40 mg PO QDAC [facility] Last Admin: 10/15/21 07:44 Dose: 40 mg Documented by: Potassium Chloride (Potassium Chloride 20 Meq Tablet) 20 meq PO DAILYWM [facility] Last Admin: 10/15/21 09:15 Dose: Not Given Documented by: Psyllium Hydrophilic Mucilloid (Psyllium Packet) 1 packet PO DAILY PRN PRN Reason: Constipation Last Admin: 09/30/21 14:09 Dose: 1 packet Documented by: Simethicone (Simethicone Chew 80 Mg Tablet) 80 mg PO Q6HR PRN PRN Reason: Gas Last Admin: 10/13/21 14:42 Dose: 80 mg Documented by: Sodium Chloride (Sodium Chloride Flush 0.9% 10 Ml Syringe) 10 ml IVP 0 100,0900,1700 [facility] Last Admin: 10/15/21 08:49 Dose: 10 ml Documented by: Sodium Chloride (Sodium Chloride Flush 0.9% 10 Ml Syringe) 10 ml IVP PRN PRN PRN Reason: NEEDED PER PROVIDER ORDERS Last Admin: 10/14/21 23:50 Dose: 10 ml Documented by: Tamsulosin HCl (Tamsulosin 0.4 Mg Capsule) 0.4 mg PO DAILY [facility] Last Admin: 10/15/21 08:50 Dose: 0.4 mg Documented by: Potassium Chloride [K-Dur] 40 meq PO BID 09/08/21 Diphenoxylate/Atropine [Lomotil] 2.5 mg PO PRN PRN 09/15/21 Objective - Vital Signs/Intake & Output Reviewed Vital Signs: Yes Vital Signs: Vital Signs x48h Temp Pulse Resp BP BP BP Pulse Ox 10/15/21 13:51 36.4 C L 101 H 22 105/52 L 80/54 L 100 10/15/21 08:51 111/44 L Intake & Output: Intake & Output 10/12/21 10/13/21 10/14/21 10/15/21 23:59 23:59 23:59 23:59 Intake Total 1940 2140 1642 560 Output Total 089 923 4576 350 Balance 965 1240 592 210 - Objective General Appearance: positive: Alert, Moderate distress Eyes Bilateral: positive: Normal inspection, Conjunctivae nml ENT: positive: ENT inspection nml Neck: positive: Nml inspection Respiratory: positive: No respiratory distress. negative: Wheezes, Rales Cardiovascular: positive: Tachycardia. negative: Irregularly irregular, Systolic murmur Abdomen: positive: Nml bowel sounds, No distention, Tenderness (He is tender in the epigastric and right lower quadrant.). negative: Guarding, Rebound Skin: positive: Warm, Dry Extremities: positive: No pedal edema Neurologic/Psychiatric: negative: Disoriented to person, Disoriented to place - Lab Results Fish Bones: 10/15/21 14:19 10/15/21 14:19 Other Labs: Lab Results x24hrs 10/15/21 10/15/21 10/15/21 Range/Units 14:03 07:32 07:32 WBC 4.8 (4.8-10.8) x10^3/uL RBC 2.82 L (4.70-6.10) 10^6/uL Hgb 9.2 L (14.0-18.0) g/dL Hct 29.6 L (42.0-52.0) % MCV 105.0 H (80.0-94.0) fL MCH 32.6 H (27.0-31.0) pg MCHC 31.1 L (32.0-36.0) g/dL RDW 16.9 H (12.0-15.0) % Plt Count 337 (130-450) 10^3/uL MPV 9.2 (7.4-11.4) fL Neut # (Auto) 3.4 (1.5-6.6) 10^3/uL Lymph # (Auto) 0.8 L (1.5-3.5) 10^3/uL [place] # (Auto) 0.5 (0.0-1.0) 10^3/uL Eos # (Auto) 0.1 (0.0-0.7) 10^3/uL Baso # (Auto) 0.0 (0.0-0.1) 10^3/uL Absolute Nucleated RBC 0.00 x10^3/uL Nucleated RBC % 0.0 /100WBC Sodium 135 (135-145) mmol/L Potassium 3.3 L (3.5-5.0) mmol/L Chloride 103 (101-111) mmol/L Carbon Dioxide 25 (21-32) mmol/L Anion Gap 7.0 (6-13) BUN 9 (6-20) mg/dL Creatinine 0.5 L (0.6-1.2) mg/dL Estimated GFR (MDRD) 163 (>89) Glucose 93 (70-100) mg/dL POC Whole Bld Glucose 69 L (70 - 100) mg/dL Calcium 7.6 L (8.5-10.3) mg/dL Lipase 17 L (22-51) U/L Stl C. diff Tox B Gene (NEGATIVE) 10/15/21 Range/Units 03:50 WBC (4.8-10.8) x10^3/uL RBC (4.70-6.10) 10^6/uL Hgb (14.0-18.0) g/dL Hct (42.0-52.0) % MCV (80.0-94.0) fL MCH (27.0-31.0) pg MCHC (32.0-36.0) g/dL RDW (12.0-15.0) % Plt Count (130-450) 10^3/uL MPV (7.4-11.4) fL Neut # (Auto) (1.5-6.6) 10^3/uL Lymph # (Auto) (1.5-3.5) 10^3/uL [place] # (Auto) (0.0-1.0) 10^3/uL Eos # (Auto) (0.0-0.7) 10^3/uL Baso # (Auto) (0.0-0.1) 10^3/uL Absolute Nucleated RBC x10^3/uL Nucleated RBC % /100WBC Sodium (135-145) mmol/L Potassium (3.5-5.0) mmol/L Chloride (101-111) mmol/L Carbon Dioxide (21-32) mmol/L Anion Gap (6-13) BUN (6-20) mg/dL Creatinine (0.6-1.2) mg/dL Estimated GFR (MDRD) (>89) Glucose (70-100) mg/dL POC Whole Bld Glucose (70 - 100) mg/dL Calcium (8.5-10.3) mg/dL Lipase (22-51) U/L Stl C. diff Tox B Gene NEGATIVE (NEGATIVE) Assessment/Plan - Problem List (1) Abdominal pain Impression: He is now complaining of worsening abdominal pain he does appear to be in distress. He is now quite tender in the epigastric and right lower quadrant. His vital signs are relatively unchanged. I ordered repeat stat labs these are also unchanged compared to morning labs. Lactic acid and troponin are within normal limits. He also reports his diarrhea is decreased today but he has not received any noted sign potentially concern for ileus or obstruction. Given his abdominal exam, we will make him n.p.o. and obtain a CT of the abdomen pelvis with oral and IV contrast. Morphine IV as needed for pain control. Zofran as needed for nausea. Qualifiers: Abdominal location: upper abdomen, unspecified Qualified Code(s): R10.10 - Upper abdominal pain, unspecified (2) Hypotension Impression: He did have one low reading this afternoon with 80/54 but immediate recheck revealed that improved to 105/52. His blood pressure has been relatively stable in the low 100s to 110s. It has been as low as the 90s but he is asymptomatic. We will continue metoprolol given he had SVT previously. Continue to monitor his blood pressure closely. (3) Chemotherapy-induced diarrhea Impression: We rechecked C. difficile for the third time yesterday and this has been negative. He reports no bowel movement since 4 AM this morning. Given he now has abdominal pain and appears in distress, we will hold the Imodium until we obtain a CT of the abdomen and pelvis. (4) Physical deconditioning Impression: He is deconditioned from his prolonged hospital stay. He has been ambulating physical therapy on a daily basis. We appreciate physical therapy and social work input regarding disposition. It appears he may be doing too well to go to a SNF so we may need to consider home health with PT. (5) Neutropenic colitis Impression: This is presumed to be resolved. Antibiotics have been discontinued after treatment with Zosyn IV. Given he now has abdominal pain, we will repeat a CT as mentioned above. (6) SVT (supraventricular tachycardia) Impression: Stable on metoprolol. (7) Adenocarcinoma of rectum, stage 3 Impression: He will need outpatient follow-up with oncology once discharged. (8) Acute kidney injury Impression: Resolved. (9) Adynamic ileus Impression: This is thought to be resolved but we will obtain a CT of the abdomen pelvis given he now has abdominal pain.
[2021-10-15 14:25] LABS: BASOPHILS % (AUTO) 0.3 %; EOSINOPHILS % (AUTO) 0.5 %; HCT - HEMATOCRIT 29.7 % (42.0-52.0); HGB - HEMOGLOBIN 9.4 g/dL (14.0-18.0); LYMPHOCYTES # (AUTO) 0.4 10^3/uL (1.5-3.5); LYMPHOCYTES % (AUTO) 5.2 %; MEAN CORPUSCULAR HEMOGLOBIN 33.2 pg (27.0-31.0); MEAN CORPUSCULAR HGB CONC 31.6 g/dL (32.0-36.0); MEAN CORPUSCULAR VOLUME 104.9 fL (80.0-94.0); MEAN PLATELET VOLUME 8.7 fL (7.4-11.4); MONOCYTES # (AUTO) 0.1 10^3/uL (0.0-1.0); MONOCYTES % (AUTO) 1.1 %; NEUTROPHILS # (AUTO) 6.8 10^3/uL (1.5-6.6); NEUTROPHILS % (AUTO) 92.4 %; PLT - PLATELET COUNT 337 10^3/uL (130-450); RED BLOOD COUNT 2.83 10^6/uL (4.70-6.10); RED CELL DISTRIBUTION WIDTH 16.8 % (12.0-15.0); WHITE BLOOD COUNT 7.4 x10^3/uL (4.8-10.8)
[2021-10-15 14:41] LABS: ALBUMIN 1.4 g/dL (3.2-5.5); BILIRUBIN,DIRECT 0.2 mg/dL (0.1-0.5); BILIRUBIN,TOTAL 0.7 mg/dL (0.2-1.0); CALCIUM 7.2 mg/dL (8.5-10.3); CREATININE 0.7 mg/dL (0.6-1.2); MAGNESIUM 1.3 mg/dL (1.7-2.8); POTASSIUM 3.3 mmol/L (3.5-5.0); TOTAL PROTEIN 4.6 g/dL (6.7-8.2)
[2021-10-15] MEDS ORDERED: MAGNESIUM SULFATE 2 GRAM 2 GM/50 ML BAG IV ONE (14:42)
[2021-10-15] MEDS ORDERED: IOVERSOL 320 100 ML VIAL IVP ONE ×2 (15:22→17:06)
[2021-10-15] MEDS ORDERED: IOVERSOL 320 50 ML VIAL ONE (15:22)
[2021-10-15] MEDS ORDERED: MORPHINE 2 MG/ML CARPUJECT IVP PRN (16:37)
[2021-10-15] MEDS ORDERED: IOVERSOL 320 50 ML VIAL PO ONE (17:05)
--- NOTE | 2021-10-15 17:44 | CT Report ---
PROCEDURE: Abdomen/Pelvis W INDICATIONS: Abdominal pain. Diarrhea. Rectal cancer. CONTRAST: IV CONTRAST: Optiray 320 ml: 100 PO CONTRAST: Optiray 320 ml50 TECHNIQUE: After the administration of contrast, 5 mm thick sections acquired from the diaphragms to the sym physis. 5 mm thick coronal and sagittal reformats were acquired. For radiation dose reduction, the following was used: automated exposure control, adjustment of mA and/or kV according to patient size . COMPARISON: None. FINDINGS: Image quality: Excellent. ABDOMEN: Lung bases: Small bilateral pleural effusions and adjacent atelectasis. No focal infiltrate. No pneum othorax. Solid organs: Liver and spleen are normal in size and enhancement. Gallbladder is status post maribel cystectomy. Biliary system is non dilated. Pancreas enhances normally. No adrenal nodules. Kidney s demonstrate normal size and enhancement, without hydronephrosis. There is a 4 cm simple left corti rocio cyst. Peritoneum and bowel: The distal esophagus and stomach are normal. The small bowel contains contrast in has a normal caliber. There is diffuse circumferential thickening of the distal small bowel loops, improved compared to the prior CT on 09/27/2021. Stool is present throughout the transverse and left colon consistent with mild constipation. Nodes and vessels: No retroperitoneal or mesenteric adenopathy by size criteria. Aorta and inferior vena cava are normal in size. Miscellaneous: No ventral hernias. PELVIS: Genitourinary: Bladder wall thickness is normal. Miscellaneous: No inguinal hernias or adenopathy. Bones: No suspicious bony lesions. No vertebral body compression fractures. IMPRESSION: 1. Abnormally thickened distal small bowel loops are improved compared to the prior CT on 09/27/2021. Differential considerations include infectious or inflammatory causes as well as ischemia. 2. Bibasilar atelectasis and bilateral small pleural effusions. Reviewed by: Bj Mary on 10/15/2021 5:42 PM PST Approved by: Bj Mary on 10/15/2021 5:42 PM PST Station ID: [id number]
[2021-10-16] MEDS: SODIUM CHLORIDE FLUSH 0.9% 10 ML SYRINGE IVP SCH ×4 (00:24→23:51)
[2021-10-16] MEDS: PANTOPRAZOLE 40 MG TABLET PO SCH (06:05)
[2021-10-16 06:17] LABS: BASOPHILS % (AUTO) 0.5 %; EOSINOPHILS # (AUTO) 0.1 10^3/uL (0.0-0.7); EOSINOPHILS % (AUTO) 2.2 %; HCT - HEMATOCRIT 29.1 % (42.0-52.0); HGB - HEMOGLOBIN 9.2 g/dL (14.0-18.0); LYMPHOCYTES # (AUTO) 0.6 10^3/uL (1.5-3.5); LYMPHOCYTES % (AUTO) 16.7 %; MEAN CORPUSCULAR HEMOGLOBIN 33.2 pg (27.0-31.0); MEAN CORPUSCULAR HGB CONC 31.6 g/dL (32.0-36.0); MEAN CORPUSCULAR VOLUME 105.1 fL (80.0-94.0); MEAN PLATELET VOLUME 8.7 fL (7.4-11.4); MONOCYTES # (AUTO) 0.5 10^3/uL (0.0-1.0); MONOCYTES % (AUTO) 13.2 %; NEUTROPHILS # (AUTO) 2.4 10^3/uL (1.5-6.6); NEUTROPHILS % (AUTO) 66.6 %; PLT - PLATELET COUNT 293 10^3/uL (130-450); RED BLOOD COUNT 2.77 10^6/uL (4.70-6.10); RED CELL DISTRIBUTION WIDTH 16.9 % (12.0-15.0); WHITE BLOOD COUNT 3.7 x10^3/uL (4.8-10.8)
[2021-10-16 06:25] LABS: CALCIUM 7.3 mg/dL (8.5-10.3); CREATININE 0.7 mg/dL (0.6-1.2); POTASSIUM 3.1 mmol/L (3.5-5.0)
[2021-10-16] MEDS: LACTOBACILLUS RHAMNOSUS GG CAPSULE PO SCH (09:16)
[2021-10-16] MEDS: FERROUS GLUCONATE 324 MG TABLET PO SCH (09:17)
[2021-10-16] MEDS: TAMSULOSIN 0.4 MG CAPSULE PO SCH (09:17)
[2021-10-16] MEDS: MULTIVITAMIN W/MINERALS TABLET PO SCH (09:17)
[2021-10-16] MEDS: POTASSIUM CHLORIDE 20 MEQ TABLET PO SCH (09:18)
[2021-10-16] MEDS: METOPROLOL TARTRATE 25 MG TABLET PO SCH ×2 (09:19→20:39)
[2021-10-16] MEDS: ENOXAPARIN 40 MG/0.4 ML SYRINGE SUBQ SCH (09:20)
--- NOTE | 2021-10-16 12:32 | PROVIDER PROGRESS NOTE ---
Subjective - Prog Note Date Prog Note Date: 10/16/21 - Subjective Subjective: He feels much improved compared to yesterday. Reports no abdominal pain. Tolerating a full liquid diet. No nausea or vomiting. Still has occasional diarrhea. He believes certain foods triggered his pain yesterday and that he is quite particular with his diet. He was able to walk in the room with physical therapy today. Still feels quite weak overall but is happy he is not in pain. Current Medications - Current Medications Current Medications: Active Medications Acetaminophen (Acetaminophen 325 Mg Tablet) 650 mg PO Q4HR PRN PRN Reason: Pain 1 to 4 Last Admin: 10/15/21 12:48 Dose: 650 mg Documented by: Al Hydroxide/Mg Hydroxide (Mag Hydrox/Al Hydrox/Simeth 30 Ml Udc) 30 ml PO Q4HR PRN PRN Reason: INDIGESTION Last Admin: 10/12/21 13:21 Dose: 30 ml Documented by: Enoxaparin Sodium (Enoxaparin 40 Mg/0.4 Ml Syringe) 40 mg SUBQ DAILY [facility] Last Admin: 10/16/21 09:20 Dose: 40 mg Documented by: Ferrous Gluconate (Ferrous Gluconate 324 Mg Tablet) 324 mg PO DAILYWM [facility] Last Admin: 10/16/21 09:17 Dose: 324 mg Documented by: Heparin Sodium (Beef Lung) (Heparin Flush 50 Units/5 Ml Syringe) 30 - 50 unit IVP PRN PRN PRN Reason: Port Protocol (<24 hours) Last Admin: 10/16/21 06:05 Dose: 50 unit Documented by: Sodium Chloride (Normal Saline 0.9%) 500 mls @ 20 mls/hr IV Q24H PRN PRN Reason: TKO RATE Last Infusion: 10/07/21 13:00 Dose: Infused Documented by: Lactobacillus Rhamnosus (Lactobacillus Rhamnosus Gg Capsule) 1 cap PO DAILY [facility] Last Admin: 10/16/21 09:16 Dose: 1 cap Documented by: Lidocaine HCl (Lidocaine Jelly 2% 6 Ml Jel.Pf.Thierry) 2 ml TOP Q4H PRN PRN Reason: PAIN Last Admin: 10/10/21 22:21 Dose: 2 ml Documented by: Metoprolol Tartrate (Metoprolol Tartrate 25 Mg Tablet) 12.5 mg PO BID [facility] Last Admin: 10/16/21 09:19 Dose: Not Given Documented by: Mineral Oil (Min Oil/Dimethicon/Coconut Oil 92 Gm Tube) 1 applic TOP PRN PRN PRN Reason: Skin Care Last Admin: 10/10/21 10:55 Dose: 1 applic Documented by: Morphine Sulfate (Morphine 2 Mg/Ml Carpuject) 2 mg IVP Q2HR PRN PRN Reason: PAIN Multi-Ingredient Ointment (Zinc Oxide 20% Oint 30 Gm Tube) 1 applic TOP PRN PRN PRN Reason: Skin Care Last Admin: 10/13/21 14:38 Dose: 1 applic Documented by: Multivitamins/Minerals (Multivitamin W/Minerals Tablet) 1 tab PO DAILYWM [facility] Last Admin: 10/16/21 09:17 Dose: 1 tab Documented by: Ondansetron HCl (Ondansetron Odt 4 Mg Tablet) 4 mg TL Q6HR PRN PRN Reason: Nausea / Vomiting Ondansetron HCl (Ondansetron 4 Mg/2 Ml Vial) 4 mg IVP Q4HR PRN PRN Reason: Nausea / Vomiting Last Admin: 09/27/21 23:39 Dose: 4 mg Documented by: Oxycodone HCl (Oxycodone 5 Mg Tablet) 5 mg PO Q4HR PRN PRN Reason: Pain 5 to 7 Last Admin: 09/19/21 16:40 Dose: 5 mg Documented by: Pantoprazole Sodium (Pantoprazole 40 Mg Tablet) 40 mg PO QDAC [facility] Last Admin: 10/16/21 06:05 Dose: 40 mg Documented by: Potassium Chloride (Potassium Chloride 20 Meq Tablet) 20 meq PO DAILYWM [facility] Last Admin: 10/16/21 09:18 Dose: Not Given Documented by: Psyllium Hydrophilic Mucilloid (Psyllium Packet) 1 packet PO DAILY PRN PRN Reason: Constipation Last Admin: 09/30/21 14:09 Dose: 1 packet Documented by: Simethicone (Simethicone Chew 80 Mg Tablet) 80 mg PO Q6HR PRN PRN Reason: Gas Last Admin: 10/13/21 14:42 Dose: 80 mg Documented by: Sodium Chloride (Sodium Chloride Flush 0.9% 10 Ml Syringe) 10 ml IVP 0100,0900,1700 [facility] Last Admin: 10/16/21 09:19 Dose: 10 ml Documented by: Sodium Chloride (Sodium Chloride Flush 0.9% 10 Ml Syringe) 10 ml IVP PRN PRN PRN Reason: NEEDED PER PROVIDER ORDERS Last Admin: 10/14/21 23:50 Dose: 10 ml Documented by: Tamsulosin HCl (Tamsulosin 0.4 Mg Capsule) 0.4 mg PO DAILY [facility] Last Admin: 10/16/21 09:17 Dose: 0.4 mg Documented by: Potassium Chloride [K-Dur] 40 meq PO BID 09/08/21 Diphenoxylate/Atropine [Lomotil] 2.5 mg PO PRN PRN 09/15/21 Objective - Vital Signs/Intake & Output Reviewed Vital Signs: Yes Vital Signs: Vital Signs x48h BP 10/16/21 09:19 102/54 L Intake & Output: Intake & Output 10/13/21 10/14/21 10/15/21 10/16/21 23:59 23:59 23:59 23:59 Intake Total 2140 1642 610 360 Output Total 900 1050 825 750 Balance 1240 592 -215 -390 - Objective General Appearance: positive: No acute distress, Alert Eyes Bilateral: positive: Normal inspection, Conjunctivae nml ENT: positive: ENT inspection nml Neck: positive: Nml inspection Respiratory: positive: No respiratory distress. negative: Wheezes, Rales Cardiovascular: positive: Regular rate & rhythm. negative: Tachycardia Abdomen: positive: Non-tender, Nml bowel sounds, No distention. negative: Tenderness Skin: positive: Warm, Dry Extremities: positive: No pedal edema Neurologic/Psychiatric: negative: Disoriented to person, Disoriented to place - Lab Results Fish Bones: 10/16/21 06:09 10/16/21 06:09 Other Labs: Lab Results x24hrs 10/16/21 10/16/21 10/16/21 Range/Units 12:07 06:09 06:09 WBC (4.8-10.8) x10^3/uL RBC (4.70-6.10) 10^6/uL Hgb (14.0-18.0) g/dL Hct (42.0-52.0) % MCV (80.0-94.0) fL MCH (27.0-31.0) pg MCHC (32.0-36.0) g/dL RDW (12.0-15.0) % Plt Count (130-450) 10^3/uL MPV (7.4-11.4) fL Neut # (Auto) (1.5-6.6) 10^3/uL Lymph # (Auto) (1.5-3.5) 10^3/uL [place] # (Auto) (0.0-1.0) 10^3/uL Eos # (Auto) (0.0-0.7) 10^3/uL Baso # (Auto) (0.0-0.1) 10^3/uL Absolute Nucleated RBC x10^3/uL Nucleated RBC % /100WBC Sodium 130 L (135-145) mmol/L Potassium 3.1 L (3.5-5.0) mmol/L Chloride 100 L (101-111) mmol/L Carbon Dioxide 23 (21-32) mmol/L Anion Gap 7.0 (6-13) BUN 11 (6-20) mg/dL Creatinine 0.7 (0.6-1.2) mg/dL Estimated GFR (MDRD) 110 (>89) Glucose 104 H (70-100) mg/dL POC Whole Bld Glucose 101 H (70 - 100) mg/dL Lactic Acid (0.5-2.2) mmol/L Calcium 7.3 L (8.5-10.3) mg/dL Phosphorus (2.5-4.6) mg/dL Magnesium (1.7-2.8) mg/dL Total Bilirubin (0.2-1.0) mg/dL Direct Bilirubin (0.1-0.5) mg/dL AST (10-42) IU/L ALT (10-60) IU/L Alkaline Phosphatase (42-121) IU/L Troponin I High Sens (2.3-19.7) ng/L Total Protein (6.7-8.2) g/dL Albumin (3.2-5.5) g/dL Globulin (2.1-4.2) g/dL Cortisol AM Sample 15.8 ug/dL 10/16/21 10/16/21 10/15/21 Range/Units 06:09 00:30 18:14 WBC 3.7 L (4.8-10.8) x10^3/uL RBC 2.77 L (4.70-6.10) 10^6/uL Hgb 9.2 L (14.0-18.0) g/dL Hct 29.1 L (42.0-52.0) % MCV 105.1 H (80.0-94.0) fL MCH 33.2 H (27.0-31.0) pg MCHC 31.6 L (32.0-36.0) g/dL RDW 16.9 H (12.0-15.0) % Plt Count 293 (130-450) 10^3/uL MPV 8.7 (7.4-11.4) fL Neut # (Auto) 2.4 (1.5-6.6) 10^3/uL Lymph # (Auto) 0.6 L (1.5-3.5) 10^3/uL [place] # (Auto) 0.5 (0.0-1.0) 10^3/uL Eos # (Auto) 0.1 (0.0-0.7) 10^3/uL Baso # (Auto) 0.0 (0.0-0.1) 10^3/uL Absolute Nucleated RBC 0.00 x10^3/uL Nucleated RBC % 0.0 /100WBC Sodium (135-145) mmol/L Potassium (3.5-5.0) mmol/L Chloride (101-111) mmol/L Carbon Dioxide (21-32) mmol/L Anion Gap (6-13) BUN (6-20) mg/dL Creatinine (0.6-1.2) mg/dL Estimated GFR (MDRD) (>89) Glucose (70-100) mg/dL POC Whole Bld Glucose 95 87 (70 - 100) mg/dL Lactic Acid (0.5-2.2) mmol/L Calcium (8.5-10.3) mg/dL Phosphorus (2.5-4.6) mg/dL Magnesium (1.7-2.8) mg/dL Total Bilirubin (0.2-1.0) mg/dL Direct Bilirubin (0.1-0.5) mg/dL AST (10-42) IU/L ALT (10-60) IU/L Alkaline Phosphatase (42-121) IU/L Troponin I High Sens (2.3-19.7) ng/L Total Protein (6.7-8.2) g/dL Albumin (3.2-5.5) g/dL Globulin (2.1-4.2) g/dL Cortisol AM Sample ug/dL 10/15/21 10/15/21 10/15/21 Range/Units 14:39 14:19 14:19 WBC 7.4 (4.8-10.8) x10^3/uL RBC 2.83 L (4.70-6.10) 10^6/uL Hgb 9.4 L (14.0-18.0) g/dL Hct 29.7 L (42.0-52.0) % MCV 104.9 H (80.0-94.0) fL MCH 33.2 H (27.0-31.0) pg MCHC 31.6 L (32.0-36.0) g/dL RDW 16.8 H (12.0-15.0) % Plt Count 337 (130-450) 10^3/uL MPV 8.7 (7.4-11.4) fL Neut # (Auto) 6.8 H (1.5-6.6) 10^3/uL Lymph # (Auto) 0.4 L (1.5-3.5) 10^3/uL [place] # (Auto) 0.1 (0.0-1.0) 10^3/uL Eos # (Auto) 0.0 (0.0-0.7) 10^3/uL Baso # (Auto) 0.0 (0.0-0.1) 10^3/uL Absolute Nucleated RBC 0.00 x10^3/uL Nucleated RBC % 0.0 /100WBC Sodium 132 L (135-145) mmol/L Potassium 3.3 L (3.5-5.0) mmol/L Chloride 102 (101-111) mmol/L Carbon Dioxide 23 (21-32) mmol/L Anion Gap 7.0 (6-13) BUN 11 (6-20) mg/dL Creatinine 0.7 (0.6-1.2) mg/dL Estimated GFR (MDRD) 110 (>89) Glucose 300 H (70-100) mg/dL POC Whole Bld Glucose 191 H (70 - 100) mg/dL Lactic Acid (0.5-2.2) mmol/L Calcium 7.2 L (8.5-10.3) mg/dL Phosphorus 3.0 (2.5-4.6) mg/dL Magnesium 1.3 L (1.7-2.8) mg/dL Total Bilirubin 0.7 (0.2-1.0) mg/dL Direct Bilirubin 0.2 (0.1-0.5) mg/dL AST 13 (10-42) IU/L ALT 11 (10-60) IU/L Alkaline Phosphatase 68 (42-121) IU/L Troponin I High Sens (2.3-19.7) ng/L Total Protein 4.6 L (6.7-8.2) g/dL Albumin 1.4 L (3.2-5.5) g/dL Globulin 3.2 (2.1-4.2) g/dL Cortisol AM Sample ug/dL 10/15/21 10/15/21 10/15/21 Range/Units 14:19 14:19 14:03 WBC (4.8-10.8) x10^3/uL RBC (4.70-6.10) 10^6/uL Hgb (14.0-18.0) g/dL Hct (42.0-52.0) % MCV (80.0-94.0) fL MCH (27.0-31.0) pg MCHC (32.0-36.0) g/dL RDW (12.0-15.0) % Plt Count (130-450) 10^3/uL MPV (7.4-11.4) fL Neut # (Auto) (1.5-6.6) 10^3/uL Lymph # (Auto) (1.5-3.5) 10^3/uL [place] # (Auto) (0.0-1.0) 10^3/uL Eos # (Auto) (0.0-0.7) 10^3/uL Baso # (Auto) (0.0-0.1) 10^3/uL Absolute Nucleated RBC x10^3/uL Nucleated RBC % /100WBC Sodium (135-145) mmol/L Potassium (3.5-5.0) mmol/L Chloride (101-111) mmol/L Carbon Dioxide (21-32) mmol/L Anion Gap (6-13) BUN (6-20) mg/dL Creatinine (0.6-1.2) mg/dL Estimated GFR (MDRD) (>89) Glucose (70-100) mg/dL POC Whole Bld Glucose 69 L (70 - 100) mg/dL Lactic Acid 1.8 (0.5-2.2) mmol/L Calcium (8.5-10.3) mg/dL Phosphorus (2.5-4.6) mg/dL Magnesium (1.7-2.8) mg/dL Total Bilirubin (0.2-1.0) mg/dL Direct Bilirubin (0.1-0.5) mg/dL AST (10-42) IU/L ALT (10-60) IU/L Alkaline Phosphatase (42-121) IU/L Troponin I High Sens 7.2 (2.3-19.7) ng/L Total Protein (6.7-8.2) g/dL Albumin (3.2-5.5) g/dL Globulin (2.1-4.2) g/dL Cortisol AM Sample ug/dL Assessment/Plan - Problem List (1) Abdominal pain Impression: His pain has now resolved. The etiology of it is not quite clear. The repeat CT yesterday showed improvement compared to prior CT from September 27. There was still thickened distal small bowel loops but they were improved. He has been tolerating a full liquid diet today. He believes that certain foods can trigger his abdominal pain and that the gravy from lunch yesterday exacerbated his pain. Given he is doing well today, we will advance his diet. If he does well with this overnight then I suspect he can be discharged tomorrow. Qualifiers: Abdominal location: upper abdomen, unspecified Qualified Code(s): R10.10 - Upper abdominal pain, unspecified (2) Hypotension Impression: His blood pressures have been borderline hypotensive at times. He is asymptomatic. We did order an a.m. cortisol this morning and it is within normal limits. I do not suspect adrenal insufficiency. We will continue with the metoprolol with holding parameters. (3) Chemotherapy-induced diarrhea Impression: This appears to be improving. We will continue with Imodium as needed. C. difficile has been negative as well as stool cultures. (4) Physical deconditioning Impression: He has had some good and not so good days during his hospitalization. He continues to work with physical therapy. He appears to be doing a little too well to go to a group home facility but this will be assessed again as he appeared to have a decline yesterday. (5) Neutropenic colitis Impression: This appears to have resolved. CT did show some small bowel thickening but this is improved and clinically he has no abdominal pain today. (6) SVT (supraventricular tachycardia) Impression: Resolved. Continue metoprolol. (7) Adenocarcinoma of rectum, stage 3 Impression: He will need outpatient follow-up with oncology once discharged. (8) Acute kidney injury Impression: Resolved. (9) Adynamic ileus Impression: Resolved.
[2021-10-16] MEDS: ACETAMINOPHEN 325 MG TABLET PO PRN (13:13)
[2021-10-16] MEDS ORDERED: LOPERAMIDE 2 MG CAPSULE PO PRN (18:20)
[2021-10-16] MEDS: SODIUM CHLORIDE FLUSH 0.9% 10 ML SYRINGE IVP PRN (23:51)
[2021-10-17] MEDS: PANTOPRAZOLE 40 MG TABLET PO SCH (05:50)
[2021-10-17 06:29] LABS: BASOPHILS % (AUTO) 0.7 %; EOSINOPHILS # (AUTO) 0.1 10^3/uL (0.0-0.7); EOSINOPHILS % (AUTO) 2.8 %; HCT - HEMATOCRIT 28.3 % (42.0-52.0); HGB - HEMOGLOBIN 8.8 g/dL (14.0-18.0); LYMPHOCYTES # (AUTO) 0.7 10^3/uL (1.5-3.5); LYMPHOCYTES % (AUTO) 23.3 %; MEAN CORPUSCULAR HEMOGLOBIN 32.2 pg (27.0-31.0); MEAN CORPUSCULAR HGB CONC 31.1 g/dL (32.0-36.0); MEAN CORPUSCULAR VOLUME 103.7 fL (80.0-94.0); MONOCYTES # (AUTO) 0.5 10^3/uL (0.0-1.0); MONOCYTES % (AUTO) 18.4 %; NEUTROPHILS # (AUTO) 1.6 10^3/uL (1.5-6.6); NEUTROPHILS % (AUTO) 53.8 %; PLT - PLATELET COUNT 296 10^3/uL (130-450); RED BLOOD COUNT 2.73 10^6/uL (4.70-6.10); RED CELL DISTRIBUTION WIDTH 16.5 % (12.0-15.0); WHITE BLOOD COUNT 2.9 x10^3/uL (4.8-10.8)
[2021-10-17 06:38] LABS: CALCIUM 7.4 mg/dL (8.5-10.3); CREATININE 0.6 mg/dL (0.6-1.2); POTASSIUM 3.1 mmol/L (3.5-5.0)
[2021-10-17 07:08] LABS: DIFFERENTIAL COMMENT MANUAL=AUTO DIFF; RBC MORPHOLOGY (MULTIPLE) 1+ MACROCYTOSIS (NORMAL); WBC MORPHOLOGY (MULTIPLE) 1+ REACTIVE LYMPHS (NORMAL)
[2021-10-17] MEDS: MULTIVITAMIN W/MINERALS TABLET PO SCH (08:20)
[2021-10-17] MEDS: TAMSULOSIN 0.4 MG CAPSULE PO SCH (08:21)
[2021-10-17] MEDS: LACTOBACILLUS RHAMNOSUS GG CAPSULE PO SCH (08:21)
[2021-10-17] MEDS: FERROUS GLUCONATE 324 MG TABLET PO SCH (08:21)
[2021-10-17] MEDS: METOPROLOL TARTRATE 25 MG TABLET PO SCH ×2 (08:23→19:57)
[2021-10-17] MEDS: ENOXAPARIN 40 MG/0.4 ML SYRINGE SUBQ SCH (08:24)
[2021-10-17] MEDS: SODIUM CHLORIDE FLUSH 0.9% 10 ML SYRINGE IVP SCH ×2 (08:24→17:20)
[2021-10-17] MEDS ORDERED: POTASSIUM CHLORIDE 20 MEQ/15 ML UDC PO SCH (09:00)
[2021-10-17] MEDS: ACETAMINOPHEN 325 MG TABLET PO PRN (14:37)
--- NOTE | 2021-10-17 15:07 | PROVIDER PROGRESS NOTE ---
Subjective - Prog Note Date Prog Note Date: 10/17/21 - Subjective Subjective: He reports doing well. Has no abdominal pain today. He feels a little fatigued but was able to work with physical therapy. He is disappointed that he is not as strong as he thought he would be. Current Medications - Current Medications Current Medications: Active Medications Acetaminophen (Acetaminophen 325 Mg Tablet) 650 mg PO Q4HR PRN PRN Reason: Pain 1 to 4 Last Admin: 10/17/21 14:37 Dose: 650 mg Documented by: Al Hydroxide/Mg Hydroxide (Mag Hydrox/Al Hydrox/Simeth 30 Ml Udc) 30 ml PO Q4HR PRN PRN Reason: INDIGESTION Last Admin: 10/12/21 13:21 Dose: 30 ml Documented by: Enoxaparin Sodium (Enoxaparin 40 Mg/0.4 Ml Syringe) 40 mg SUBQ DAILY [facility] Last Admin: 10/17/21 08:24 Dose: 40 mg Documented by: Ferrous Gluconate (Ferrous Gluconate 324 Mg Tablet) 324 mg PO DAILYWM [facility] Last Admin: 10/17/21 08:21 Dose: 324 mg Documented by: Heparin Sodium (Beef Lung) (Heparin Flush 50 Units/5 Ml Syringe) 30 - 50 unit IVP PRN PRN PRN Reason: Port Protocol (<24 hours) Last Admin: 10/17/21 05:50 Dose: 50 unit Documented by: Sodium Chloride (Normal Saline 0.9%) 500 mls @ 20 mls/hr IV Q24H PRN PRN Reason: TKO RATE Last Infusion: 10/07/21 13:00 Dose: Infused Documented by: Lactobacillus Rhamnosus (Lactobacillus Rhamnosus Gg Capsule) 1 cap PO DAILY [facility] Last Admin: 10/17/21 08:21 Dose: 1 cap Documented by: Lidocaine HCl (Lidocaine Jelly 2% 6 Ml Jel.Pf.Thierry) 2 ml TOP Q4H PRN PRN Reason: PAIN Last Admin: 10/10/21 22:21 Dose: 2 ml Documented by: Loperamide HCl (Loperamide 2 Mg Capsule) 2 mg PO QID PRN PRN Reason: Diarrhea Metoprolol Tartrate (Metoprolol Tartrate 25 Mg Tablet) 12.5 mg PO BID [facility] Last Admin: 10/17/21 08:23 Dose: Not Given Documented by: Mineral Oil (Min Oil/Dimethicon/Coconut Oil 92 Gm Tube) 1 applic TOP PRN PRN PRN Reason: Skin Care Last Admin: 10/10/21 10:55 Dose: 1 applic Documented by: Morphine Sulfate (Morphine 2 Mg/Ml Carpuject) 2 mg IVP Q2HR PRN PRN Reason: PAIN Multi-Ingredient Ointment (Zinc Oxide 20% Oint 30 Gm Tube) 1 applic TOP PRN PRN PRN Reason: Skin Care Last Admin: 10/13/21 14:38 Dose: 1 applic Documented by: Multivitamins/Minerals (Multivitamin W/Minerals Tablet) 1 tab PO DAILYWM [facility] Last Admin: 10/17/21 08:20 Dose: 1 tab Documented by: Ondansetron HCl (Ondansetron Odt 4 Mg Tablet) 4 mg TL Q6HR PRN PRN Reason: Nausea / Vomiting Ondansetron HCl (Ondansetron 4 Mg/2 Ml Vial) 4 mg IVP Q4HR PRN PRN Reason: Nausea / Vomiting Last Admin: 09/27/21 23:39 Dose: 4 mg Documented by: Oxycodone HCl (Oxycodone 5 Mg Tablet) 5 mg PO Q4HR PRN PRN Reason: Pain 5 to 7 Last Admin: 09/19/21 16:40 Dose: 5 mg Documented by: Pantoprazole Sodium (Pantoprazole 40 Mg Tablet) 40 mg PO QDAC [facility] Last Admin: 10/17/21 05:50 Dose: 40 mg Documented by: Potassium Chloride (Potassium Chloride 20 Meq/15 Ml Udc) [facility] Psyllium Hydrophilic Mucilloid (Psyllium Packet) 1 packet PO DAILY PRN PRN Reason: Constipation Last Admin: 09/30/21 14:09 Dose: 1 packet Documented by: Simethicone (Simethicone Chew 80 Mg Tablet) 80 mg PO Q6HR PRN PRN Reason: Gas Last Admin: 10/13/21 14:42 Dose: 80 mg Documented by: Sodium Chloride (Sodium Chloride Flush 0.9% 10 Ml Syringe) 10 ml IVP 0100,0900,1700 [facility] Last Admin: 10/17/21 08:24 Dose: 10 ml Documented by: Sodium Chloride (Sodium Chloride Flush 0.9% 10 Ml Syringe) 10 ml IVP PRN PRN PRN Reason: NEEDED PER PROVIDER ORDERS Last Admin: 10/16/21 23:51 Dose: 10 ml Documented by: Tamsulosin HCl (Tamsulosin 0.4 Mg Capsule) 0.4 mg PO DAILY [facility] Last Admin: 10/17/21 08:21 Dose: 0.4 mg Documented by: Potassium Chloride [K-Dur] 40 meq PO BID 09/08/21 Diphenoxylate/Atropine [Lomotil] 2.5 mg PO PRN PRN 09/15/21 Objective - Vital Signs/Intake & Output Reviewed Vital Signs: Yes Vital Signs: Vital Signs x48h Temp Pulse Resp BP BP Pulse Ox 10/17/21 08:23 94/55 L 10/17/21 07:55 36.6 C 88 18 94/55 L 99 Intake & Output: Intake & Output 10/14/21 10/15/21 10/16/21 10/17/21 23:59 23:59 23:59 23:59 Intake Total 5288 123 3031 1420 Output Total 5624 763 6658 800 Balance 592 -215 250 620 - Objective General Appearance: positive: No acute distress, Alert Eyes Bilateral: positive: Normal inspection, Conjunctivae nml ENT: positive: ENT inspection nml Neck: positive: Nml inspection Respiratory: positive: No respiratory distress. negative: Wheezes, Rales Cardiovascular: positive: Regular rate & rhythm. negative: Tachycardia Abdomen: positive: Non-tender, No distention. negative: Tenderness Skin: positive: Warm, Dry Extremities: positive: No pedal edema Neurologic/Psychiatric: negative: Disoriented to person, Disoriented to place - Lab Results Fish Bones: 10/17/21 05:50 10/17/21 05:50 Other Labs: Lab Results x24hrs 10/17/21 10/17/21 Range/Units 05:50 05:50 WBC 2.9 L (4.8-10.8) x10^3/uL RBC 2.73 L (4.70-6.10) 10^6/uL Hgb 8.8 L (14.0-18.0) g/dL Hct 28.3 L (42.0-52.0) % MCV 103.7 H (80.0-94.0) fL MCH 32.2 H (27.0-31.0) pg MCHC 31.1 L (32.0-36.0) g/dL RDW 16.5 H (12.0-15.0) % Plt Count 296 (130-450) 10^3/uL MPV 9.0 (7.4-11.4) fL Neut # (Auto) 1.6 (1.5-6.6) 10^3/uL Lymph # (Auto) 0.7 L (1.5-3.5) 10^3/uL Wolfe # (Auto) 0.5 (0.0-1.0) 10^3/uL Eos # (Auto) 0.1 (0.0-0.7) 10^3/uL Baso # (Auto) 0.0 (0.0-0.1) 10^3/uL Absolute Nucleated RBC 0.00 x10^3/uL Band Neuts % (Manual) Not Reportable Abnorm Lymph % (Manual) Not Reportable Nucleated RBC % 0.0 /100WBC Neutrophils # (Manual) Not Reportable Lymphocytes # (Manual) Not Reportable Monocytes # (Manual) Not Reportable Eosinophils # (Manual) Not Reportable Basophils # (Manual) Not Reportable Differential Comment MANUAL=AUTO DIFF WBC Morphology 1+ REACTIVE LYMPHS (NORMAL) RBC Morph Micro Appear 1+ MACROCYTOSIS (NORMAL) Sodium 133 L (135-145) mmol/L Potassium 3.1 L (3.5-5.0) mmol/L Chloride 101 (101-111) mmol/L Carbon Dioxide 24 (21-32) mmol/L Anion Gap 8.0 (6-13) BUN 13 (6-20) mg/dL Creatinine 0.6 (0.6-1.2) mg/dL Estimated GFR (MDRD) 132 (>89) Glucose 93 (70-100) mg/dL Calcium 7.4 L (8.5-10.3) mg/dL Assessment/Plan - Problem List (1) Abdominal pain Impression: His pain has resolved. Most recent CT showed thickening of the distal small bowel this was improved compared to prior imaging. There currently appears to be no evidence of infection. His diet has been advanced and is tolerating this well so we will continue with his current diet. We are now working on disposition for him. Qualifiers: Abdominal location: upper abdomen, unspecified Qualified Code(s): R10.10 - Upper abdominal pain, unspecified (2) Hypotension Impression: He remains borderline hypotensive with systolics in the 90s but he is asymptomatic. We will continue low-dose metoprolol given he had SVT previously. (3) Chemotherapy-induced diarrhea Impression: This is stable. We will continue the Imodium as needed. (4) Physical deconditioning Impression: He is continuing to work with physical therapy and the plan is for SNF on discharge. (5) Neutropenic colitis Impression: This appears to have resolved. CT did show some small bowel thickening but this is improved and clinically he has no abdominal pain now. (6) SVT (supraventricular tachycardia) Impression: Resolved. Continue metoprolol. (7) Adenocarcinoma of rectum, stage 3 Impression: He will continue outpatient follow-up with oncology once discharged.
[2021-10-17] MEDS ORDERED: CALCIUM CARBONATE CHEW 500 MG TABLET PO PRN (16:51)
[2021-10-17] MEDS: POTASSIUM CHLORIDE 20 MEQ/15 ML UDC PO SCH (16:56)
[2021-10-17] MEDS: GI COCKTAIL 120 ML BOTTLE PO PRN ×2 (17:19→19:58)
[2021-10-17] MEDS: POTASSIUM CHLOR 10 MEQ/100 ML 10 MEQ/100 ML BAG IV SCH ×4 (20:00→23:14)
[2021-10-17] MEDS: SODIUM CHLORIDE FLUSH 0.9% 10 ML SYRINGE IVP PRN (20:00)
[2021-10-18] MEDS: PANTOPRAZOLE 40 MG TABLET PO SCH (06:16)
[2021-10-18] MEDS: FERROUS GLUCONATE 324 MG TABLET PO SCH (09:13)
[2021-10-18] MEDS: MULTIVITAMIN W/MINERALS TABLET PO SCH (09:13)
[2021-10-18] MEDS: TAMSULOSIN 0.4 MG CAPSULE PO SCH (09:14)
[2021-10-18] MEDS: ENOXAPARIN 40 MG/0.4 ML SYRINGE SUBQ SCH (09:14)
[2021-10-18] MEDS: SODIUM CHLORIDE FLUSH 0.9% 10 ML SYRINGE IVP SCH ×3 (09:14→15:53)
[2021-10-18] MEDS: LACTOBACILLUS RHAMNOSUS GG CAPSULE PO SCH (09:14)
[2021-10-18] MEDS: METOPROLOL TARTRATE 25 MG TABLET PO SCH ×2 (11:14→19:54)
--- NOTE | 2021-10-18 12:09 | PROVIDER PROGRESS NOTE ---
Subjective - Prog Note Date Prog Note Date: 10/18/21 - Subjective Subjective: He had a little abdominal cramping yesterday after eating too many carrots but currently reports no pain. He is still having diarrhea. Current Medications - Current Medications Current Medications: Active Medications Acetaminophen (Acetaminophen 325 Mg Tablet) 650 mg PO Q4HR PRN PRN Reason: Pain 1 to 4 Last Admin: 10/17/21 14:37 Dose: 650 mg Documented by: Al Hydroxide/Mg Hydroxide (Mag Hydrox/Al Hydrox/Simeth 30 Ml Udc) 30 ml PO Q4HR PRN PRN Reason: INDIGESTION Last Admin: 10/12/21 13:21 Dose: 30 ml Documented by: Calcium Carbonate/Glycine (Calcium Carbonate Chew 500 Mg Tablet) 500 mg PO BID PRN PRN Reason: Heartburn Last Admin: 10/17/21 17:19 Dose: 500 mg Documented by: Enoxaparin Sodium (Enoxaparin 40 Mg/0.4 Ml Syringe) 40 mg SUBQ DAILY [facility] Last Admin: 10/18/21 09:14 Dose: 40 mg Documented by: Ferrous Gluconate (Ferrous Gluconate 324 Mg Tablet) 324 mg PO DAILYWM [facility] Last Admin: 10/18/21 09:13 Dose: 324 mg Documented by: Heparin Sodium (Beef Lung) (Heparin Flush 50 Units/5 Ml Syringe) 30 - 50 unit IVP PRN PRN PRN Reason: Port Protocol (<24 hours) Last Admin: 10/18/21 06:17 Dose: 50 unit Documented by: Sodium Chloride (Normal Saline 0.9%) 500 mls @ 20 mls/hr IV Q24H PRN PRN Reason: TKO RATE Last Infusion: 10/07/21 13:00 Dose: Infused Documented by: Lactobacillus Rhamnosus (Lactobacillus Rhamnosus Gg Capsule) 1 cap PO DAILY [facility] Last Admin: 10/18/21 09:14 Dose: 1 cap Documented by: Lidocaine HCl (Lidocaine Jelly 2% 6 Ml Jel.Pf.Thierry) 2 ml TOP Q4H PRN PRN Reason: PAIN Last Admin: 10/10/21 22:21 Dose: 2 ml Documented by: Loperamide HCl (Loperamide 2 Mg Capsule) 2 mg PO QID PRN PRN Reason: Diarrhea Metoprolol Tartrate (Metoprolol Tartrate 25 Mg Tablet) 12.5 mg PO BID [facility] Last Admin: 10/18/21 11:14 Dose: Not Given Documented by: Mineral Oil (Min Oil/Dimethicon/Coconut Oil 92 Gm Tube) 1 applic TOP PRN PRN PRN Reason: Skin Care Last Admin: 10/10/21 10:55 Dose: 1 applic Documented by: Morphine Sulfate (Morphine 2 Mg/Ml Carpuject) 2 mg IVP Q2HR PRN PRN Reason: PAIN Multi-Ingredient Mouthwash/Gargle (Gi Cocktail 120 Ml Bottle) 30 ml PO Q4H PRN PRN Reason: Abdominal Pain Last Admin: 10/17/21 19:58 Dose: 30 ml Documented by: Multi-Ingredient Ointment (Zinc Oxide 20% Oint 30 Gm Tube) 1 applic TOP PRN PRN PRN Reason: Skin Care Last Admin: 10/13/21 14:38 Dose: 1 applic Documented by: Multivitamins/Minerals (Multivitamin W/Minerals Tablet) [facility] [place] Admin: 10/18/21 09:13 Dose: 1 tab Documented by: Ondansetron HCl (Ondansetron Odt 4 Mg Tablet) 4 mg TL Q6HR PRN PRN Reason: Nausea / Vomiting Ondansetron HCl (Ondansetron 4 Mg/2 Ml Vial) 4 mg IVP Q4HR PRN PRN Reason: Nausea / Vomiting Last Admin: 09/27/21 23:39 Dose: 4 mg Documented by: Oxycodone HCl (Oxycodone 5 Mg Tablet) 5 mg PO Q4HR PRN PRN Reason: Pain 5 to 7 Last Admin: 09/19/21 16:40 Dose: 5 mg Documented by: Pantoprazole Sodium (Pantoprazole 40 Mg Tablet) 40 mg PO QDAC [facility] Last Admin: 10/18/21 06:16 Dose: 40 mg Documented by: Potassium Chloride (Potassium Chloride 20 Meq/15 Ml Udc) 20 meq PO QDDINNER [facility] Last Admin: 10/17/21 16:56 Dose: Not Given Documented by: Psyllium Hydrophilic Mucilloid (Psyllium Packet) 1 packet PO DAILY PRN PRN Reason: Constipation Last Admin: 09/30/21 14:09 Dose: 1 packet Documented by: Simethicone (Simethicone Chew 80 Mg Tablet) 80 mg PO Q6HR PRN PRN Reason: Gas Last Admin: 10/13/21 14:42 Dose: 80 mg Documented by: Sodium Chloride (Sodium Chloride Flush 0.9% 10 Ml Syringe) 10 ml IVP 0100,0900,1700 [facility] Last Admin: 10/18/21 09:14 Dose: 10 ml Documented by: Sodium Chloride (Sodium Chloride Flush 0.9% 10 Ml Syringe) 10 ml IVP PRN PRN PRN Reason: NEEDED PER PROVIDER ORDERS Last Admin: 10/17/21 20:00 Dose: 10 ml Documented by: Tamsulosin HCl (Tamsulosin 0.4 Mg Capsule) 0.4 mg PO DAILY [facility] Last Admin: 10/18/21 09:14 Dose: 0.4 mg Documented by: Potassium Chloride [K-Dur] 40 meq PO BID 09/08/21 Diphenoxylate/Atropine [Lomotil] 2.5 mg PO PRN PRN 09/15/21 Objective - Vital Signs/Intake & Output Reviewed Vital Signs: Yes Vital Signs: Vital Signs x48h Temp Pulse Resp BP BP Pulse Ox 10/18/21 11:14 93/52 L 10/18/21 07:20 36.6 C 84 18 93/52 L 99 Intake & Output: Intake & Output 10/15/21 10/16/21 10/17/21 10/18/21 23:59 23:59 23:59 23:59 Intake Total 610 1350 2015 820 Output Total 825 1100 1100 450 Balance -215 250 915 370 - Objective General Appearance: positive: No acute distress, Alert Eyes Bilateral: positive: Normal inspection, Conjunctivae nml ENT: positive: ENT inspection nml Neck: positive: Nml inspection Respiratory: positive: No respiratory distress. negative: Wheezes, Rales Cardiovascular: positive: Regular rate & rhythm. negative: Tachycardia Abdomen: positive: Non-tender, No distention, Abnml bowel sounds (Hyperactive bowel sounds.). negative: Tenderness Skin: positive: Warm, Dry Extremities: positive: No pedal edema Neurologic/Psychiatric: negative: Disoriented to person, Disoriented to place - Lab Results Fish Bones: 10/17/21 05:50 10/17/21 05:50 ABX Reporting Has patient been on IV antibiotics over the past 48 hours?: No Assessment/Plan - Problem List (1) Abdominal pain Impression: His pain has resolved. Most recent CT showed thickening of the distal small bowel this was improved compared to prior imaging. There currently appears to be no evidence of infection. He is tolerating diet. We will continue with Protonix and Tums as needed. Qualifiers: Abdominal location: upper abdomen, unspecified Qualified Code(s): R10.10 - Upper abdominal pain, unspecified (2) Hypotension Impression: Blood pressure been stable with systolics in the 90s. He has no evidence of endorgan damage. He is also asymptomatic with this. We will continue low-dose metoprolol given his history of SVT. (3) Chemotherapy-induced diarrhea Impression: Ongoing but stable. Continue Imodium as needed. Cultures including C. difficile have been negative. (4) Physical deconditioning Impression: Continues work with physical therapy. Although he is able to walk 80 feet, he has required multiple breaks in between. We are looking to get him to a [facility] facility. (5) Neutropenic colitis Impression: This appears to have resolved. CT did show some small bowel thickening but this is improved and clinically he has no abdominal pain now. (6) SVT (supraventricular tachycardia) Impression: Resolved. Continue metoprolol. (7) Adenocarcinoma of rectum, stage 3 Impression: He will continue outpatient follow-up with oncology once discharged.
[2021-10-18] MEDS: GI COCKTAIL 120 ML BOTTLE PO PRN (15:52)
[2021-10-18] MEDS: POTASSIUM CHLORIDE 20 MEQ/15 ML UDC PO SCH (18:06)
[2021-10-19] MEDS: SODIUM CHLORIDE FLUSH 0.9% 10 ML SYRINGE IVP SCH ×4 (00:14→22:48)
[2021-10-19] MEDS: PANTOPRAZOLE 40 MG TABLET PO SCH (06:38)
[2021-10-19] MEDS: FERROUS GLUCONATE 324 MG TABLET PO SCH (08:30)
[2021-10-19] MEDS: MULTIVITAMIN W/MINERALS TABLET PO SCH (08:30)
[2021-10-19] MEDS: TAMSULOSIN 0.4 MG CAPSULE PO SCH (09:00)
[2021-10-19] MEDS: LACTOBACILLUS RHAMNOSUS GG CAPSULE PO SCH (09:00)
[2021-10-19] MEDS: ENOXAPARIN 40 MG/0.4 ML SYRINGE SUBQ SCH (09:00)
[2021-10-19] MEDS: METOPROLOL TARTRATE 25 MG TABLET PO SCH ×2 (09:59→22:47)
[2021-10-19] MEDS: SODIUM CHLORIDE FLUSH 0.9% 10 ML SYRINGE IVP PRN (11:00)
[2021-10-19 11:41] LABS: CALCIUM 7.6 mg/dL (8.5-10.3); CREATININE 0.6 mg/dL (0.6-1.2); POTASSIUM 3.6 mmol/L (3.5-5.0)
[2021-10-19] MEDS: ACETAMINOPHEN 325 MG TABLET PO PRN (12:20)
[2021-10-19] MEDS: GI COCKTAIL 120 ML BOTTLE PO PRN (16:16)
[2021-10-19] MEDS: POTASSIUM CHLORIDE 20 MEQ/15 ML UDC PO SCH (16:18)
--- NOTE | 2021-10-19 18:05 | PROVIDER PROGRESS NOTE ---
Subjective - Prog Note Date Prog Note Date: 10/19/21 - Subjective Subjective: He feels okay overall. He is working with physical therapy on a daily basis. He still has occasional epigastric pain. He believes it occurs after eating certain foods. He also believes this may be an ulcer as it feels similar to a pain he had in the past. Still having loose stools. No nausea or vomiting. Current Medications - Current Medications Current Medications: Active Medications Acetaminophen (Acetaminophen 325 Mg Tablet) 650 mg PO Q4HR PRN PRN Reason: Pain 1 to 4 Last Admin: 10/19/21 12:20 Dose: 650 mg Documented by: Al Hydroxide/Mg Hydroxide (Mag Hydrox/Al Hydrox/Simeth 30 Ml Udc) 30 ml PO Q4HR PRN PRN Reason: INDIGESTION Last Admin: 10/12/21 13:21 Dose: 30 ml Documented by: Calcium Carbonate/Glycine (Calcium Carbonate Chew 500 Mg Tablet) 500 mg PO BID PRN PRN Reason: Heartburn Last Admin: 10/17/21 17:19 Dose: 500 mg Documented by: Enoxaparin Sodium (Enoxaparin 40 Mg/0.4 Ml Syringe) 40 mg SUBQ DAILY [facility] Last Admin: 10/19/21 09:00 Dose: 40 mg Documented by: Ferrous Gluconate (Ferrous Gluconate 324 Mg Tablet) 324 mg PO DAILYWM [facility] Last Admin: 10/19/21 08:30 Dose: 324 mg Documented by: Heparin Sodium (Beef Lung) (Heparin Flush 50 Units/5 Ml Syringe) 30 - 50 unit IVP PRN PRN PRN Reason: Port Protocol (<24 hours) Last Admin: 10/19/21 11:00 Dose: 50 unit Documented by: Sodium Chloride (Normal Saline 0.9%) 500 mls @ 20 mls/hr IV Q24H PRN PRN Reason: TKO RATE Last Infusion: 10/07/21 13:00 Dose: Infused Documented by: Lactobacillus Rhamnosus (Lactobacillus Rhamnosus Gg Capsule) 1 cap PO DAILY [facility] Last Admin: 10/19/21 09:00 Dose: 1 cap Documented by: Lidocaine HCl (Lidocaine Jelly 2% 6 Ml Jel.Pf.Thierry) 2 ml TOP Q4H PRN PRN Reason: PAIN Last Admin: 10/10/21 22:21 Dose: 2 ml Documented by: Loperamide HCl (Loperamide 2 Mg Capsule) 2 mg PO QID PRN PRN Reason: Diarrhea Last Admin: 10/19/21 12:20 Dose: 2 mg Documented by: Metoprolol Tartrate (Metoprolol Tartrate 25 Mg Tablet) 12.5 mg PO BID [facility] Last Admin: 10/19/21 09:59 Dose: Not Given Documented by: Mineral Oil (Min Oil/Dimethicon/Coconut Oil 92 Gm Tube) 1 applic TOP PRN PRN PRN Reason: Skin Care Last Admin: 10/10/21 10:55 Dose: 1 applic Documented by: Morphine Sulfate (Morphine 2 Mg/Ml Carpuject) 2 mg IVP Q2HR PRN PRN Reason: PAIN Multi-Ingredient Mouthwash/Gargle (Gi Cocktail 120 Ml Bottle) 30 ml PO Q4H PRN PRN Reason: Abdominal Pain Last Admin: 10/19/21 16:16 Dose: 30 ml Documented by: Multi-Ingredient Ointment (Zinc Oxide 20% Oint 30 Gm Tube) 1 applic TOP PRN PRN PRN Reason: Skin Care Last Admin: 10/13/21 14:38 Dose: 1 applic Documented by: Multivitamins/Minerals (Multivitamin W/Minerals Tablet) 1 tab PO DAILYWM [facility] Last Admin: 10/19/21 08:30 Dose: 1 tab Documented by: Ondansetron HCl (Ondansetron Odt 4 Mg Tablet) 4 mg TL Q6HR PRN PRN Reason: Nausea / Vomiting Ondansetron HCl (Ondansetron 4 Mg/2 Ml Vial) 4 mg IVP Q4HR PRN PRN Reason: Nausea / Vomiting Last Admin: 09/27/21 23:39 Dose: 4 mg Documented by: Oxycodone HCl (Oxycodone 5 Mg Tablet) 5 mg PO Q4HR PRN PRN Reason: Pain 5 to 7 Last Admin: 09/19/21 16:40 Dose: 5 mg Documented by: Pantoprazole Sodium (Pantoprazole 40 Mg Tablet) 40 mg PO QDAC [facility] Last Admin: 10/19/21 06:38 Dose: 40 mg Documented by: Potassium Chloride (Potassium Chloride 20 Meq/15 Ml Udc) 20 meq PO QDDINNER [facility] Last Admin: 10/19/21 16:18 Dose: Not Given Documented by: Psyllium Hydrophilic Mucilloid (Psyllium Packet) 1 packet PO DAILY PRN PRN Reason: Constipation Last Admin: 09/30/21 14:09 Dose: 1 packet Documented by: Simethicone (Simethicone Chew 80 Mg Tablet) 80 mg PO Q6HR PRN PRN Reason: Gas Last Admin: 10/13/21 14:42 Dose: 80 mg Documented by: Sodium Chloride (Sodium Chloride Flush 0.9% 10 Ml Syringe) 10 ml IVP 0100,0900,1700 [facility] Last Admin: 10/19/21 16:16 Dose: 10 ml Documented by: Sodium Chloride (Sodium Chloride Flush 0.9% 10 Ml Syringe) 10 ml IVP PRN PRN PRN Reason: NEEDED PER PROVIDER ORDERS Last Admin: 10/19/21 11:00 Dose: 10 ml Documented by: Tamsulosin HCl (Tamsulosin 0.4 Mg Capsule) 0.4 mg PO DAILY [facility] Last Admin: 10/19/21 09:00 Dose: 0.4 mg Documented by: Potassium Chloride [K-Dur] 40 meq PO BID 09/08/21 Diphenoxylate/Atropine [Lomotil] 2.5 mg PO PRN PRN 09/15/21 Objective - Vital Signs/Intake & Output Reviewed Vital Signs: Yes Vital Signs: Vital Signs x48h Temp Pulse Resp BP Pulse Ox 10/19/21 16:27 36.3 C L 92 18 112/57 L 100 10/19/21 12:02 36.4 C L 88 18 95/60 100 Intake & Output: Intake & Output 10/16/21 10/17/21 10/18/21 10/19/21 23:59 23:59 23:59 23:59 Intake Total 1350 2015 1880 850 Output Total 1100 1100 1050 875 Balance 250 915 830 -25 - Objective General Appearance: positive: No acute distress, Alert Eyes Bilateral: positive: Normal inspection, Conjunctivae nml ENT: positive: ENT inspection nml Neck: positive: Nml inspection Respiratory: positive: No respiratory distress Abdomen: positive: Nml bowel sounds, No distention, Tenderness (He has epigastric tenderness.). negative: Non-tender, Rebound Skin: positive: Warm, Dry Extremities: positive: No pedal edema - Lab Results Fish Bones: 10/17/21 05:50 11/29/21 11:00 Other Labs: Lab Results x24hrs 10/19/21 Range/Units 11:00 Sodium 134 L (135-145) mmol/L Potassium 3.6 (3.5-5.0) mmol/L Chloride 103 (101-111) mmol/L Carbon Dioxide 24 (21-32) mmol/L Anion Gap 7.0 (6-13) BUN 15 (6-20) mg/dL Creatinine 0.6 (0.6-1.2) mg/dL Estimated GFR (MDRD) 132 (>89) Glucose 117 H (70-100) mg/dL Calcium 7.6 L (8.5-10.3) mg/dL Assessment/Plan - Problem List (1) Abdominal pain Impression: He still has abdominal pain today and his abdominal exam is changed compared to yesterday. He is not tender in the epigastric region but otherwise appears comfortable. He has been started on a PPI and given a GI cocktail. Given he still has epigastric pain, we will make him n.p.o. at midnight and discussed with general surgery regarding the need for potential scope tomorrow. If this cannot be obtained tomorrow then I believe he can still be discharged to a SNF if a bed becomes available and an EGD can be pursued on an outpatient basis given he is tolerating a diet. Qualifiers: Abdominal location: upper abdomen, unspecified Qualified Code(s): R10.10 - Upper abdominal pain, unspecified (2) Hypotension Impression: His blood pressure is now above 100 systolic. His orthostatics are also negative. He is tolerating metoprolol which we will continue given the SVT earlier this admission. (3) Chemotherapy-induced diarrhea Impression: Ongoing but stable. Continue Imodium as needed. Cultures including C. difficile have been negative. (4) Physical deconditioning Impression: He continues work with physical therapy. We are looking to get him to a [facility] facility. (5) Neutropenic colitis Impression: This is resolved. He completed IV antibiotics during his hospitalization. Repeat CT a few days ago did show small bowel wall thickening but this was improved. (6) SVT (supraventricular tachycardia) Impression: Continue metoprolol. (7) Adenocarcinoma of rectum, stage 3 Impression: He will continue outpatient follow-up with oncology once discharged.
[2021-10-20] MEDS: PANTOPRAZOLE 40 MG TABLET PO SCH (06:39)
[2021-10-20] MEDS: ENOXAPARIN 40 MG/0.4 ML SYRINGE SUBQ SCH (09:23)
[2021-10-20] MEDS: TAMSULOSIN 0.4 MG CAPSULE PO SCH (09:24)
[2021-10-20] MEDS: METOPROLOL TARTRATE 25 MG TABLET PO SCH ×2 (09:24→20:54)
[2021-10-20] MEDS: LACTOBACILLUS RHAMNOSUS GG CAPSULE PO SCH (09:24)
[2021-10-20] MEDS: MULTIVITAMIN W/MINERALS TABLET PO SCH (09:24)
[2021-10-20] MEDS: FERROUS GLUCONATE 324 MG TABLET PO SCH (09:24)
[2021-10-20] MEDS: SODIUM CHLORIDE FLUSH 0.9% 10 ML SYRINGE IVP SCH ×2 (09:26→20:55)
[2021-10-20] MEDS: LOPERAMIDE 2 MG CAPSULE PO SCH (11:12)
--- NOTE | 2021-10-20 12:54 | PROVIDER PROGRESS NOTE ---
Assessment/Plan - Problem List (1) Abdominal pain Qualifiers: Abdominal location: upper abdomen, unspecified Qualified Code(s): R10.10 - Upper abdominal pain, unspecified Assessment/Plan: He still had abdominal pain yesterday and his abdominal exam was changed. He has been started on a PPI and given a GI cocktail. He is not tender in the epigastric region but otherwise appears comfortable. He was made n.p.o. for poss EGD but his Gen Claudineon is out of town until tomorrow. I discussed resuming his (restricted) diet and seeing if pain recurs and awaiting Dr Randhawa consult tomorrow vs a new Gen Surgeon to see today. The pt decided to try his diet and see what sx occur. An EGD could be pursued on an outpatient basis if he is tolerating a diet. Qualifiers: Abdominal location: upper abdomen, unspecified Qualified Code(s): R10.10 - Upper abdominal pain, unspecified (2) Hypotension Impression: His blood pressure rums 90-100 systolic. His orthostatics are negative. He is tolerating metoprolol which we will continue given the SVT earlier this admission. (3) Chemotherapy-induced diarrhea Impression: Ongoing but stable. Cultures including C. difficile have been negative. Continue Imodium as needed and will start one Imodium scheduled every a.m., as recommended by Dietary. (4) Physical deconditioning Impression: He continues work with physical therapy. We are looking to get him to a nursing home facility or to home if he completes his progress and is to his baseline. (5) SVT (supraventricular tachycardia) Impression: Continue metoprolol. (6) Adenocarcinoma of rectum, stage 3 Impression: He will continue outpatient follow-up with oncology once discharged. (7) Neutropenic colitis Impression: This has resolved. He completed IV antibiotics during his hospitalization. Repeat CT a few days ago did show small bowel wall thickening but this was improved. - Current Meds Current Meds: Current Medications Generic Name Dose Route Start Last Admin Trade Name Freq PRN Reason Stop Dose Admin Acetaminophen 650 mg 10/07/21 13:59 10/19/21 12:20 Acetaminophen 325 Mg Tablet PO 650 mg Q4HR PRN Administration Pain 1 to 4 Al Hydroxide/Mg Hydroxide 30 ml 09/22/21 20:39 10/12/21 13:21 Mag Hydrox/Al Hydrox/Simeth 30 Ml Udc PO 30 ml Q4HR PRN Administration INDIGESTION Calcium Carbonate/Glycine 500 mg 10/17/21 16:51 10/17/21 17:19 Calcium Carbonate Chew 500 Mg Tablet PO 500 mg BID PRN Administration Heartburn Enoxaparin Sodium 40 mg 09/19/21 09:00 10/20/21 09:23 Enoxaparin 40 Mg/0.4 Ml Syringe SUBQ 40 mg DAILY SPENCER Administration Ferrous Gluconate 324 mg 10/13/21 15:00 10/20/21 09:24 Ferrous Gluconate 324 Mg Tablet PO 324 mg DAILYWM SPENCER Administration Heparin Sodium (Beef Lung) 30 - 50 unit 09/26/21 16:30 10/19/21 11:00 Heparin Flush 50 Units/5 Ml Syringe IVP 50 unit PRN PRN Administration Port Protocol (<24 hours) Sodium Chloride 500 mls @ 20 mls/hr 09/29/21 08:53 10/07/21 13:00 Normal Saline 0.9% IV Infused Q24H PRN Infusion TKO RATE Lactobacillus Rhamnosus 1 cap 10/12/21 17:00 10/20/21 09:24 Lactobacillus Rhamnosus Gg Capsule PO 1 cap DAILY SPENCER Administration Lidocaine HCl 2 ml 10/03/21 15:01 10/10/21 22:21 Lidocaine Jelly 2% 6 Ml Jel.Pf.Thierry TOP 2 ml Q4H PRN Administration PAIN Loperamide HCl 2 mg 10/16/21 18:20 10/19/21 12:20 Loperamide 2 Mg Capsule PO 2 mg QID PRN Administration Diarrhea Loperamide HCl 2 mg 10/20/21 11:00 10/20/21 11:12 Loperamide 2 Mg Capsule PO 2 mg DAILY SPENCER Administration Metoprolol Tartrate 12.5 mg 10/13/21 09:00 10/20/21 09:24 Metoprolol Tartrate 25 Mg Tablet PO Not Given BID SPENCER Mineral Oil 1 applic 09/19/21 16:51 10/10/21 10:55 Min Oil/Dimethicon/Coconut Oil 92 Gm Tube TOP 1 applic PRN PRN Administration Skin Care Multi-Ingredient Mouthwash/Gargle 30 ml 10/17/21 16:54 10/19/21 16:16 Gi Cocktail 120 Ml Bottle PO 30 ml Q4H PRN Administration Abdominal Pain Multi-Ingredient Ointment 1 applic 10/02/21 09:11 10/13/21 14:38 Zinc Oxide 20% Oint 30 Gm Tube TOP 1 applic PRN PRN Administration Skin Care Multivitamins/Minerals 1 tab 10/12/21 16:00 10/20/21 09:24 Multivitamin W/Minerals Tablet PO 1 tab DAILYWM SPENCER Administration Ondansetron HCl 4 mg 09/19/21 01:56 09/27/21 23:39 Ondansetron 4 Mg/2 Ml Vial IVP 4 mg Q4HR PRN Administration Nausea / Vomiting Oxycodone HCl 5 mg 09/18/21 22:41 09/19/21 16:40 Oxycodone 5 Mg Tablet PO 5 mg Q4HR PRN Administration Pain 5 to 7 Pantoprazole Sodium 40 mg 09/27/21 07:00 10/20/21 06:39 Pantoprazole 40 Mg Tablet PO 40 mg QDAC SPENCER Administration Potassium Chloride 20 meq 10/17/21 17:00 10/19/21 16:18 Potassium Chloride 20 Meq/15 Ml Udc PO Not [facility] Psyllium Hydrophilic Mucilloid 1 packet 09/30/21 10:44 09/30/21 14:09 Psyllium Packet PO 1 packet DAILY PRN Administration Constipation Simethicone 80 mg 10/13/21 14:25 10/13/21 14:42 Simethicone Chew 80 Mg Tablet PO 80 mg Q6HR PRN Administration Gas Sodium Chloride 10 ml 09/19/21 01:00 10/20/21 09:26 Sodium Chloride Flush 0.9% 10 Ml Syringe IVP 10 ml 0100,0900,1700 SPENCER Administration Sodium Chloride 10 ml 09/18/21 22:41 10/19/21 11:00 Sodium Chloride Flush 0.9% 10 Ml Syringe IVP 10 ml PRN PRN Administration NEEDED PER PROVIDER ORDERS Tamsulosin HCl 0.4 mg 10/01/21 09:00 10/20/21 09:24 Tamsulosin 0.4 Mg Capsule PO 0.4 mg DAILY SPENCER Administration - Lab Result Fish Bone Diagrams: 10/17/21 05:50 10/19/21 11:00 - Additional Planning My Orders: My Active Orders 10/20/21 Breakfast DIET [Soft (Low Fiber) Diet] [DIET] 10/20/21 11:00 Loperamide [Imodium] 2 mg PO DAILY Subjective - Subjective Patient Reports: Feeling Better, Abdominal Pain (He is getting twinges today, yesterday it was for hours and followed his breakfast and lunch.) Objective Vital Signs: Vital Signs - 24 hr 10/19/21 10/19/21 10/19/21 16:27 22:47 23:55 Temperature 36.3 C L 36.6 C Heart Rate [ 92 89 Brachial] Respiratory 18 20 Rate Blood Pressure 96/63 Blood Pressure 112/57 L 97/53 L [Right Brachial artery] O2 Saturation 100 100 10/20/21 10/20/21 08:12 09:24 Temperature 36.6 C Heart Rate [ 88 Brachial] Respiratory 16 Rate Blood Pressure 98/66 Blood Pressure 94/54 L [Right Brachial artery] O2 Saturation 100 Oxygen O2 Source Room air I&O (Last 24 Hrs): Intake and Output Totals x24h 10/18/21 10/19/21 10/20/21 23:59 23:59 23:59 Intake Total 1880 1320 Output Total 1050 1025 250 Balance 830 295 -250 General: Alert, Oriented x3 HEENT: Mucous membr. moist/pink Neck: Supple, No JVD Neuro: Alert, Non Focal Cardiovascular: Regular rate, No murmurs Respiratory: No respiratory distress, Breath sounds nml Abdomen: Normal bowel sounds, Soft, Other (Mildly tender in RLQ, no rebound.) Extremities: No edema, No tenderness/swelling - Results Results: Laboratory Results WBC 2.9 x10^3/uL (4.8-10.8) L 10/17/21 05:50 RBC 2.73 10^6/uL (4.70-6.10) L 10/17/21 05:50 Hgb 8.8 g/dL (14.0-18.0) L 10/17/21 05:50 Hct 28.3 % (42.0-52.0) L 10/17/21 05:50 MCV 103.7 fL (80.0-94.0) H 10/17/21 05:50 MCH 32.2 pg (27.0-31.0) H 10/17/21 05:50 MCHC 31.1 g/dL (32.0-36.0) L 10/17/21 05:50 RDW 16.5 % (12.0-15.0) H 10/17/21 05:50 Plt Count 296 10^3/uL (130-450) 10/17/21 05:50 MPV 9.0 fL (7.4-11.4) 10/17/21 05:50 Neut # (Auto) 1.6 10^3/uL (1.5-6.6) 10/17/21 05:50 Lymph # (Auto) 0.7 10^3/uL (1.5-3.5) L 10/17/21 05:50 [place] # (Auto) 0.5 10^3/uL (0.0-1.0) 10/17/21 05:50 Eos # (Auto) 0.1 10^3/uL (0.0-0.7) 10/17/21 05:50 Baso # (Auto) 0.0 10^3/uL (0.0-0.1) 10/17/21 05:50 Absolute Nucleated RBC 0.00 x10^3/uL 10/17/21 05:50 Total Counted 100 10/03/21 05:45 Band Neuts % (Manual) Not Reportable 10/17/21 05:50 Abnorm Lymph % (Manual) Not Reportable 10/17/21 05:50 Metamyelocytes % 1 % (-0) H 09/23/21 04:15 Myelocytes % 1 % (-0) H 09/29/21 04:55 Nucleated RBC % 0.0 /100WBC 10/17/21 05:50 Neutrophils # (Manual) Not Reportable 10/17/21 05:50 Lymphocytes # (Manual) Not Reportable 10/17/21 05:50 Monocytes # (Manual) Not Reportable 10/17/21 05:50 Eosinophils # (Manual) Not Reportable 10/17/21 05:50 Basophils # (Manual) Not Reportable 10/17/21 05:50 Nucleated RBCs 2 % 09/27/21 14:23 Differential Comment MANUAL=AUTO DIFF 10/17/21 05:50 Manual Slide Review Indicated 09/24/21 09:11 WBC Morphology 1+ REACTIVE LYMPHS (NORMAL) 10/17/21 05:50 Platelet Estimate NORMAL (130-450,000) (NORMAL) 10/03/21 05:45 Platelet Morphology NORMAL APPEARANCE (NORMAL) 10/03/21 05:45 RBC Morph Micro Appear 1+ MACROCYTOSIS (NORMAL) 10/17/21 05:50 D-Dimer 925.3 ng/mL (200.0-255.0) H 09/18/21 20:50 Bld Gas Analysis Time 1212 09/20/21 12:00 Sample Site RIGHT RADIAL 09/20/21 12:00 ABG pH 7.43 (7.35-7.45) 09/20/21 12:00 ABG pCO2 23 mmHg (34-45) L* 09/20/21 12:00 ABG pO2 84 mmHg (80-100) 09/20/21 12:00 ABG HCO3 14.6 mmol/L (22.0-26.0) L 09/20/21 12:00 ABG Total CO2 15.3 MMOL/L (21.0-29.0) L 09/20/21 12:00 ABG O2 Saturation 97 % (94-98) 09/20/21 12:00 ABG Base Excess -7.8 mmol/L (-2.0-3.0) L 09/20/21 12:00 Pineda Test POSITIVE 09/20/21 12:00 VBG pH 7.526 (7.31-7.41) H 10/01/21 15:36 VBG pCO2 18.3 mmHg (41-51) L 10/01/21 15:36 VBG pO2 52.7 mmHg (25-47) H 10/01/21 15:36 VBG HCO3 14.8 mmol/L (23-28) L 10/01/21 15:36 VBG Total CO2 15.4 mmol/L (24-29) L 10/01/21 15:36 VBG O2 Saturation 91.6 % (60-80) H 10/01/21 15:36 VBG Base Excess -5.9 mmol/L (-2 - +2) L 10/01/21 15:36 Ionized Calcium 1.09 mmol/L (1.15-1.33) L 09/26/21 04:11 Room Air YES 09/20/21 12:00 O2 Delivery Device BiPAP 09/18/21 21:15 FiO2 100.00 09/18/21 21:15 EPAP 5 cmH2O 09/18/21 21:15 IPAP 12 cmH2O 09/18/21 21:15 Sodium 134 mmol/L (135-145) L 10/19/21 11:00 Potassium 3.6 mmol/L (3.5-5.0) 10/19/21 11:00 Chloride 103 mmol/L (101-111) 10/19/21 11:00 Carbon Dioxide 24 mmol/L (21-32) 10/19/21 11:00 Anion Gap 7.0 (6-13) 10/19/21 11:00 BUN 15 mg/dL (6-20) 10/19/21 11:00 Creatinine 0.6 mg/dL (0.6-1.2) 10/19/21 11:00 Estimated GFR (MDRD) 132 (>89) 10/19/21 11:00 Glucose 117 mg/dL (70-100) H 10/19/21 11:00 POC Whole Bld Glucose 101 mg/dL (70 - 100) H 10/16/21 12:07 Lactic Acid 1.8 mmol/L (0.5-2.2) 10/15/21 14:19 Calcium 7.6 mg/dL (8.5-10.3) L 10/19/21 11:00 Phosphorus 3.0 mg/dL (2.5-4.6) 10/15/21 14:19 Magnesium 1.3 mg/dL (1.7-2.8) L 10/15/21 14:19 Iron 24 ug/dL (45-182) L 10/13/21 05:50 TIBC 171 ug/dL (250-450) L 10/13/21 05:50 % Saturation 14 % (20-50) L 10/13/21 05:50 Transferrin 122 mg/dL (180-329) L 10/13/21 05:50 Ferritin 239.2 ng/mL (23.9-336.2) 10/13/21 05:50 Total Bilirubin 0.7 mg/dL (0.2-1.0) 10/15/21 14:19 Direct Bilirubin 0.2 mg/dL (0.1-0.5) 10/15/21 14:19 AST 13 IU/L (10-42) 10/15/21 14:19 ALT 11 IU/L (10-60) 10/15/21 14:19 Alkaline Phosphatase 68 IU/L (42-121) 10/15/21 14:19 Troponin I High Sens 7.2 ng/L (2.3-19.7) 10/15/21 14:19 C-Reactive Protein 19.0 mg/dL (0-1.0) H 09/28/21 05:20 B-Natriuretic Peptide 149 pg/mL (5-100) H 09/18/21 20:50 Total Protein 4.6 g/dL (6.7-8.2) L 10/15/21 14:19 Albumin 1.4 g/dL (3.2-5.5) L 10/15/21 14:19 Globulin 3.2 g/dL (2.1-4.2) 10/15/21 14:19 Albumin/Globulin Ratio 0.4 (1.0-2.2) L 10/02/21 06:10 Prealbumin 10 mg/dL (18-45) L 10/02/21 06:10 Triglycerides 172 mg/dL (-149) H 10/02/21 06:10 Lipase 17 U/L (22-51) L 10/15/21 07:32 Vitamin B12 3949 pg/mL (180-914) H 10/05/21 06:10 Folate 10.52 ng/mL (5.90 - >24.8) 10/05/21 06:10 TSH 6.26 uIU/mL (0.34-5.60) H 09/26/21 12:30 Cortisol AM Sample 15.8 ug/dL 10/16/21 06:09 Nasal Adenovirus (PCR) NOT DETECTED 09/18/21 21:15 Nasal B. parapertussis DNA (PCR) NOT DETECTED 09/18/21 21:15 Nasal Coronavir 229E PCR NOT DETECTED 09/18/21 21:15 Nasal Coronavir HKU1 PCR NOT DETECTED 09/18/21 21:15 Nasal Coronavir NL63 PCR NOT DETECTED 09/18/21 21:15 Nasal Coronavir OC43 PCR NOT DETECTED 09/18/21 21:15 Nasal Enterovir/Rhinovir PCR NOT DETECTED 09/18/21 21:15 Nasal Influenza B PCR NOT DETECTED 09/18/21 21:15 Nasal Influenza A PCR NOT DETECTED 09/18/21 21:15 Nasal Parainfluen 1 PCR NOT DETECTED 09/18/21 21:15 Nasal Parainfluen 2 PCR NOT DETECTED 09/18/21 21:15 Nasal Parainfluen 3 PCR NOT DETECTED 09/18/21 21:15 Nasal Parainfluen 4 PCR NOT DETECTED 09/18/21 21:15 Nasal RSV (PCR) NOT DETECTED 09/18/21 21:15 Nasal Screen MRSA (PCR) NEGATIVE (NEGATIVE) 09/18/21 23:50 Nasal B.pertussis DNA PCR NOT DETECTED 09/18/21 21:15 Nasal C.pneumoniae (PCR) NOT DETECTED 09/18/21 21:15 S[place]ail Human Metapneumo PCR NOT DETECTED 09/18/21 21:15 Nasal M.pneumoniae (PCR) NOT DETECTED 09/18/21 21:15 Nasal SARS-CoV-2 (PCR) NOT DETECTED 09/18/21 21:15 Stl C. diff Tox B Gene NEGATIVE (NEGATIVE) 10/15/21 03:50 Last Dose Date 09/2009/21/21 05:25 Last Dose Time 1401 09/21/21 05:25 Digoxin 0.8 ng/mL 09/21/21 05:25 Ref Lab Test Result REPORT 09/22/21 01:55 - Procedures Procedures: Procedures EXCISION OF SIGMOID COLON, ENDO, DIAGN (06/17/21)
[2021-10-20] MEDS: GI COCKTAIL 120 ML BOTTLE PO PRN (13:02)
[2021-10-20] MEDS: ACETAMINOPHEN 325 MG TABLET PO PRN (16:04)
[2021-10-20] MEDS: POTASSIUM CHLORIDE 20 MEQ/15 ML UDC PO SCH (18:21)
[2021-10-21] MEDS: SODIUM CHLORIDE FLUSH 0.9% 10 ML SYRINGE IVP SCH ×3 (00:12→17:25)
[2021-10-21] MEDS: PANTOPRAZOLE 40 MG TABLET PO SCH ×2 (06:44→16:00)
[2021-10-21] MEDS: TAMSULOSIN 0.4 MG CAPSULE PO SCH (08:03)
[2021-10-21] MEDS: LACTOBACILLUS RHAMNOSUS GG CAPSULE PO SCH (08:03)
[2021-10-21] MEDS: LOPERAMIDE 2 MG CAPSULE PO SCH (08:03)
[2021-10-21] MEDS: FERROUS GLUCONATE 324 MG TABLET PO SCH (08:03)
[2021-10-21] MEDS: MULTIVITAMIN W/MINERALS TABLET PO SCH (08:03)
[2021-10-21] MEDS: ENOXAPARIN 40 MG/0.4 ML SYRINGE SUBQ SCH (08:04)
[2021-10-21] MEDS: METOPROLOL TARTRATE 25 MG TABLET PO SCH ×2 (08:04→21:01)
[2021-10-21 11:09] LABS: ALBUMIN 1.5 g/dL (3.2-5.5); BILIRUBIN,DIRECT 0.1 mg/dL (0.1-0.5); BILIRUBIN,TOTAL 0.5 mg/dL (0.2-1.0); TOTAL PROTEIN 4.7 g/dL (6.7-8.2)
--- NOTE | 2021-10-21 11:19 | PROVIDER PROGRESS NOTE ---
Assessment/Plan - Problem List (1) Abdominal pain Qualifiers: Abdominal location: upper abdomen, unspecified Qualified Code(s): R10.10 - Upper abdominal pain, unspecified Assessment/Plan: He had minimal abdominal pain yesterday even with his soft diet restarted. He was started on a PPI empirically. He was made n.p.o. this morning for poss EGD a nd his Gen Surgeon was contacted and requested an US of upper abd. and will see him today for a F/U consult. (2) Hypotension Impression: His blood pressure runs 90-100 systolic. His orthostatics are negative. He is tolerating metoprolol which we will continue given the SVT earlier this admission. (3) Chemotherapy-induced diarrhea Impression: Ongoing but improving. Cultures including C. difficile have been negative. Continue Imodium as needed and yesterday we started one Imodium scheduled every a.m., as recommended by Dietary. (4) Physical deconditioning Impression: He continues work with physical therapy; yesterday was able to do stairs for thr first time. He is also working woith OT and needs alot of help with ADLs (gets fatigued after just brushing his teeth, cannot wipe after a BM yet). We are looking to get him to a usp facility for PT and OT, or to home if he gets to his baseline pre-hospital strength. (5) SVT (supraventricular tachycardia) Impression: Continue metoprolol. (6) Adenocarcinoma of rectum, stage 3 Impression: He will continue outpatient follow-up with Oncology once discharged. (7) Neutropenic colitis Impression: This has nearly resolved. He completed IV antibiotics during his hospitalization. Repeat CT a few days ago did show small bowel wall thickening but this was improved. - Current Meds Current Meds: Current Medications Generic Name Dose Route Start Last Admin Trade Name Freq PRN Reason Stop Dose Admin Acetaminophen 650 mg 10/07/21 13:59 10/20/21 16:04 Acetaminophen 325 Mg Tablet PO 650 mg Q4HR PRN Administration Pain 1 to 4 Al Hydroxide/Mg Hydroxide 30 ml 09/22/21 20:39 10/12/21 13:21 Mag Hydrox/Al Hydrox/Simeth 30 Ml Udc PO 30 ml Q4HR PRN Administration INDIGESTION Calcium Carbonate/Glycine 500 mg 10/17/21 16:51 10/17/21 17:19 Calcium Carbonate Chew 500 Mg Tablet PO 500 mg BID PRN Administration Heartburn Enoxaparin Sodium 40 mg 09/19/21 09:00 10/21/21 08:04 Enoxaparin 40 Mg/0.4 Ml Syringe SUBQ 40 mg DAILY SPENCER Administration Ferrous Gluconate 324 mg 10/13/21 15:00 10/21/21 08:03 Ferrous Gluconate 324 Mg Tablet PO 324 mg DAILYWM SPENCER Administration Heparin Sodium (Beef Lung) 30 - 50 unit 09/26/21 16:30 10/20/21 20:56 Heparin Flush 50 Units/5 Ml Syringe IVP 50 unit PRN PRN Administration Port Protocol (<24 hours) Sodium Chloride 500 mls @ 20 mls/hr 09/29/21 08:53 10/07/21 13:00 Normal Saline 0.9% IV Infused Q24H PRN Infusion TKO RATE Lactobacillus Rhamnosus 1 cap 10/12/21 17:00 10/21/21 08:03 Lactobacillus Rhamnosus Gg Capsule PO 1 cap DAILY SPENCER Administration Lidocaine HCl 2 ml 10/03/21 15:01 10/10/21 22:21 Lidocaine Jelly 2% 6 Ml Jel.Pf.Tiherry TOP 2 ml Q4H PRN Administration PAIN Loperamide HCl 2 mg 10/16/21 18:20 10/19/21 12:20 Loperamide 2 Mg Capsule PO 2 mg QID PRN Administration Diarrhea Loperamide HCl 2 mg 10/20/21 11:00 10/21/21 08:03 Loperamide 2 Mg Capsule PO 2 mg DAILY SPENCER Administration Metoprolol Tartrate 12.5 mg 10/13/21 09:00 10/21/21 08:04 Metoprolol Tartrate 25 Mg Tablet PO Not Given BID [facility] Mineral Oil 1 applic 09/19/21 16:51 10/10/21 10:55 Min Oil/Dimethicon/Coconut Oil 92 Gm Tube TOP 1 applic PRN PRN Administration Skin Care Multi-Ingredient Mouthwash/Gargle 30 ml 10/17/21 16:54 10/20/21 13:02 Gi Cocktail 120 Ml Bottle PO 30 ml Q4H PRN Administration Abdominal Pain Multi-Ingredient Ointment 1 applic 10/02/21 09:11 10/13/21 14:38 Zinc Oxide 20% Oint 30 Gm Tube TOP 1 applic PRN PRN Administration Skin Care Multivitamins/Minerals 1 tab 10/12/21 16:00 10/21/21 08:03 Multivitamin W/Minerals Tablet PO 1 tab DAILYWM SPENCER Administration Ondansetron HCl 4 mg 09/19/21 01:56 09/27/21 23:39 Ondansetron 4 Mg/2 Ml Vial IVP 4 mg Q4HR PRN Administration Nausea / Vomiting Oxycodone HCl 5 mg 09/18/21 22:41 09/19/21 16:40 Oxycodone 5 Mg Tablet PO 5 mg Q4HR PRN Administration Pain 5 to 7 Pantoprazole Sodium 40 mg 09/27/21 07:00 10/21/21 06:44 Pantoprazole 40 Mg Tablet PO Not Given QDAC SPENCER Potassium Chloride 20 meq 10/17/21 17:00 10/20/21 18:21 Potassium Chloride 20 Meq/15 Ml Udc PO Not Given QDDINNER SPENCER Psyllium Hydrophilic Mucilloid 1 packet 09/30/21 10:44 09/30/21 14:09 Psyllium Packet PO 1 packet DAILY PRN Administration Constipation Simethicone 80 mg 10/13/21 14:25 10/13/21 14:42 Simethicone Chew 80 Mg Tablet PO 80 mg Q6HR PRN Administration Gas Sodium Chloride 10 ml 09/19/21 01:00 10/21/21 08:04 Sodium Chloride Flush 0.9% 10 Ml Syringe IVP 10 ml 0100,0900,1700 SPENCER Administration Sodium Chloride 10 ml 09/18/21 22:41 10/19/21 11:00 Sodium Chloride Flush 0.9% 10 Ml Syringe IVP 10 ml PRN PRN Administration NEEDED PER PROVIDER ORDERS Tamsulosin HCl 0.4 mg 10/01/21 09:00 10/21/21 08:03 Tamsulosin 0.4 Mg Capsule PO 0.4 mg DAILY SPENCER Administration - Lab Result Fish Bone Diagrams: 10/17/21 05:50 10/19/21 11:00 - Additional Planning My Orders: My Active Orders 10/20/21 11:00 Loperamide [Imodium] 2 mg PO DAILY 10/21/21 07:51 DIET [NPO except Meds] [DIET] 10/21/21 10:30 Abdomen Limited [US] Stat 10/21/21 10:45 LIVER PANEL [CHEM] Routine Subjective - Subjective Patient Reports: Resting Comfortably, Other (He is hungry, but has no abd pain or BMs if he is NPO.) Objective Vital Signs: Vital Signs - 24 hr 10/20/21 10/20/21 10/20/21 16:21 20:54 23:58 Temperature 36.4 C L 36.4 C L Heart Rate [ 97 81 Brachial] Respiratory 20 20 Rate Blood Pressure 96/50 L Blood Pressure 109/69 92/54 L [Right Brachial artery] O2 Saturation 99 100 10/21/21 07:18 Temperature 36.4 C L Heart Rate [ 80 Brachial] Respiratory 20 Rate Blood Pressure Blood Pressure 100/58 L [Right Brachial artery] O2 Saturation 100 Oxygen O2 Source Room air I&O (Last 24 Hrs): Intake and Output Totals x24h 10/19/21 10/20/21 10/21/21 23:59 23:59 23:59 Intake Total 1320 590 Output Total 1025 575 850 Balance 295 15 -850 General: Alert, Oriented x3 HEENT: Mucous membr. moist/pink Neck: Supple, No JVD Neuro: Alert, Non Focal Cardiovascular: Regular rate Respiratory: No respiratory distress Abdomen: Normal bowel sounds, Soft, No tenderness Extremities: No edema - Results Results: Laboratory Results WBC 2.9 x10^3/uL (4.8-10.8) L 10/17/21 05:50 RBC 2.73 10^6/uL (4.70-6.10) L 10/17/21 05:50 Hgb 8.8 g/dL (14.0-18.0) L 10/17/21 05:50 Hct 28.3 % (42.0-52.0) L 10/17/21 05:50 MCV 103.7 fL (80.0-94.0) H 10/17/21 05:50 MCH 32.2 pg (27.0-31.0) H 10/17/21 05:50 MCHC 31.1 g/dL (32.0-36.0) L 10/17/21 05:50 RDW 16.5 % (12.0-15.0) H 10/17/21 05:50 Plt Count 296 10^3/uL (130-450) 10/17/21 05:50 MPV 9.0 fL (7.4-11.4) 10/17/21 05:50 Neut # (Auto) 1.6 10^3/uL (1.5-6.6) 10/17/21 05:50 Lymph # (Auto) 0.7 10^3/uL (1.5-3.5) L 10/17/21 05:50 Storey # (Auto) 0.5 10^3/uL (0.0-1.0) 10/17/21 05:50 Eos # (Auto) 0.1 10^3/uL (0.0-0.7) 10/17/21 05:50 Baso # (Auto) 0.0 10^3/uL (0.0-0.1) 10/17/21 05:50 Absolute Nucleated RBC 0.00 x10^3/uL 10/17/21 05:50 Total Counted 100 10/03/21 05:45 Band Neuts % (Manual) Not Reportable 10/17/21 05:50 Abnorm Lymph % (Manual) Not Reportable 10/17/21 05:50 Metamyelocytes % 1 % (-0) H 09/23/21 04:15 Myelocytes % 1 % (-0) H 09/29/21 04:55 Nucleated RBC % 0.0 /100WBC 10/17/21 05:50 Neutrophils # (Manual) Not Reportable 10/17/21 05:50 Lymphocytes # (Manual) Not Reportable 10/17/21 05:50 Monocytes # (Manual) Not Reportable 10/17/21 05:50 Eosinophils # (Manual) Not Reportable 10/17/21 05:50 Basophils # (Manual) Not Reportable 10/17/21 05:50 Nucleated RBCs 2 % 09/27/21 14:23 Differential Comment MANUAL=AUTO DIFF 10/17/21 05:50 Manual Slide Review Indicated 09/24/21 09:11 WBC Morphology 1+ REACTIVE LYMPHS (NORMAL) 10/17/21 05:50 Platelet Estimate NORMAL (130-450,000) (NORMAL) 10/03/21 05:45 Platelet Morphology NORMAL APPEARANCE (NORMAL) 10/03/21 05:45 RBC Morph Micro Appear 1+ MACROCYTOSIS (NORMAL) 10/17/21 05:50 D-Dimer 925.3 ng/mL (200.0-255.0) H 09/18/21 20:50 Bld Gas Analysis Time 1212 09/20/21 12:00 Sample Site RIGHT RADIAL 09/20/21 12:00 ABG pH 7.43 (7.35-7.45) 09/20/21 12:00 ABG pCO2 23 mmHg (34-45) L* 09/20/21 12:00 ABG pO2 84 mmHg (80-100) 09/20/21 12:00 ABG HCO3 14.6 mmol/L (22.0-26.0) L 09/20/21 12:00 ABG Total CO2 15.3 MMOL/L (21.0-29.0) L 09/20/21 12:00 ABG O2 Saturation 97 % (94-98) 09/20/21 12:00 ABG Base Excess -7.8 mmol/L (-2.0-3.0) L 09/20/21 12:00 Pineda Test POSITIVE 09/20/21 12:00 VBG pH 7.526 (7.31-7.41) H 10/01/21 15:36 VBG pCO2 18.3 mmHg (41-51) L 10/01/21 15:36 VBG pO2 52.7 mmHg (25-47) H 10/01/21 15:36 VBG HCO3 14.8 mmol/L (23-28) L 10/01/21 15:36 VBG Total CO2 15.4 mmol/L (24-29) L 10/01/21 15:36 VBG O2 Saturation 91.6 % (60-80) H 10/01/21 15:36 VBG Base Excess -5.9 mmol/L (-2 - +2) L 10/01/21 15:36 Ionized Calcium 1.09 mmol/L (1.15-1.33) L 09/26/21 04:11 Room Air YES 09/20/21 12:00 O2 Delivery Device BiPAP 09/18/21 21:15 FiO2 100.00 09/18/21 21:15 EPAP 5 cmH2O 09/18/21 21:15 IPAP 12 cmH2O 09/18/21 21:15 Sodium 134 mmol/L (135-145) L 10/19/21 11:00 Potassium 3.6 mmol/L (3.5-5.0) 10/19/21 11:00 Chloride 103 mmol/L (101-111) 10/19/21 11:00 Carbon Dioxide 24 mmol/L (21-32) 10/19/21 11:00 Anion Gap 7.0 (6-13) 10/19/21 11:00 BUN 15 mg/dL (6-20) 10/19/21 11:00 Creatinine 0.6 mg/dL (0.6-1.2) 10/19/21 11:00 Estimated GFR (MDRD) 132 (>89) 10/19/21 11:00 Glucose 117 mg/dL (70-100) H 10/19/21 11:00 POC Whole Bld Glucose 101 mg/dL (70 - 100) H 10/16/21 12:07 Lactic Acid 1.8 mmol/L (0.5-2.2) 10/15/21 14:19 Calcium 7.6 mg/dL (8.5-10.3) L 10/19/21 11:00 Phosphorus 3.0 mg/dL (2.5-4.6) 10/15/21 14:19 Magnesium 1.3 mg/dL (1.7-2.8) L 10/15/21 14:19 Iron 24 ug/dL (45-182) L 10/13/21 05:50 TIBC 171 ug/dL (250-450) L 10/13/21 05:50 % Saturation 14 % (20-50) L 10/13/21 05:50 Transferrin 122 mg/dL (180-329) L 10/13/21 05:50 Ferritin 239.2 ng/mL (23.9-336.2) 10/13/21 05:50 Total Bilirubin 0.7 mg/dL (0.2-1.0) 10/15/21 14:19 Direct Bilirubin 0.2 mg/dL (0.1-0.5) 10/15/21 14:19 AST 13 IU/L (10-42) 10/15/21 14:19 ALT 11 IU/L (10-60) 10/15/21 14:19 Alkaline Phosphatase 68 IU/L (42-121) 10/15/21 14:19 Troponin I High Sens 7.2 ng/L (2.3-19.7) 10/15/21 14:19 C-Reactive Protein 19.0 mg/dL (0-1.0) H 09/28/21 05:20 B-Natriuretic Peptide 149 pg/mL (5-100) H 09/18/21 20:50 Total Protein 4.6 g/dL (6.7-8.2) L 10/15/21 14:19 Albumin 1.4 g/dL (3.2-5.5) L 10/15/21 14:19 Globulin 3.2 g/dL (2.1-4.2) 10/15/21 14:19 Albumin/Globulin Ratio 0.4 (1.0-2.2) L 10/02/21 06:10 Prealbumin 10 mg/dL (18-45) L 10/02/21 06:10 Triglycerides 172 mg/dL (-149) H 10/02/21 06:10 Lipase 17 U/L (22-51) L 10/15/21 07:32 Vitamin B12 3949 pg/mL (180-914) H 10/05/21 06:10 Folate 10.52 ng/mL (5.90 - >24.8) 10/05/21 06:10 TSH 6.26 uIU/mL (0.34-5.60) H 09/26/21 12:30 Cortisol AM Sample 15.8 ug/dL 10/16/21 06:09 Nasal Adenovirus (PCR) NOT DETECTED 09/18/21 21:15 Nasal B. parapertussis DNA (PCR) NOT DETECTED 09/18/21 21:15 Nasal Coronavir 229E PCR NOT DETECTED 09/18/21 21:15 Nasal Coronavir HKU1 PCR NOT DETECTED 09/18/21 21:15 Nasal Coronavir NL63 PCR NOT DETECTED 09/18/21 21:15 Nasal Coronavir OC43 PCR NOT DETECTED 09/18/21 21:15 Nasal Enterovir/Rhinovir PCR NOT DETECTED 09/18/21 21:15 Nasal Influenza B PCR NOT DETECTED 09/18/21 21:15 Nasal Influenza A PCR NOT DETECTED 09/18/21 21:15 Nasal Parainfluen 1 PCR NOT DETECTED 09/18/21 21:15 Nasal Parainfluen 2 PCR NOT DETECTED 09/18/21 21:15 Nasal Parainfluen 3 PCR NOT DETECTED 09/18/21 21:15 Nasal Parainfluen 4 PCR NOT DETECTED 09/18/21 21:15 Nasal RSV (PCR) NOT DETECTED 09/18/21 21:15 Nasal Screen MRSA (PCR) NEGATIVE (NEGATIVE) 09/18/21 23:50 Nasal B.pertussis DNA PCR NOT DETECTED 09/18/21 21:15 Nasal C.pneumoniae (PCR) NOT DETECTED 09/18/21 21:15 Sohail Human Metapneumo PCR NOT DETECTED 09/18/21 21:15 Nasal M.pneumoniae (PCR) NOT DETECTED 09/18/21 21:15 Nasal SARS-CoV-2 (PCR) NOT DETECTED 09/18/21 21:15 Stl C. diff Tox B Gene NEGATIVE (NEGATIVE) 10/15/21 03:50 Last Dose Date 09/2009/21/21 05:25 Last Dose Time 1401 09/21/21 05:25 Digoxin 0.8 ng/mL 09/21/21 05:25 Ref Lab Test Result REPORT 09/22/21 01:55 - Procedures Procedures: Procedures EXCISION OF SIGMOID COLON, ENDO, DIAGN (06/17/21)
--- NOTE | 2021-10-21 11:51 | Ultrasound Report ---
PROCEDURE: Abdomen Limited INDICATIONS: poss cholecystitis TECHNIQUE: Real-time scanning was performed of the abdominal and retroperitoneal organs, with image documentatio n. COMPARISON: None. FINDINGS: Liver: Liver is normal in size and homogeneous in echotexture. It is noted that the left hepatic lo be is not well visualized secondary to overlying bowel gas. Gallbladder: The gallbladder has been removed. No interval change since 09/14/2021 Biliary ducts: Intrahepatic bile ducts are non-dilated. Extrahepatic bile duct caliber measures 4.7 mm. Normal is 6-7 mm or less in diameter, or 10 mm or less post-cholecystectomy. Pancreas: Not visualized. Kidneys: Right kidney measures 11.3 cm long. No hydronephrosis or nephrolithiasis. No solid masses . Miscellaneous: Mild right pleural effusion, unchanged since 09/14/2021. IMPRESSION: 1. Gallbladder has been removed. 2. Unchanged mild right pleural effusion. Reviewed by: Carissa Rockwell MD on 10/21/2021 11:50 AM PST Approved by: Carissa Rockwell MD on 10/21/2021 11:50 AM PST Station ID: [id number]
--- NOTE | 2021-10-21 15:46 | PROVIDER PROGRESS NOTE ---
Subjective - Prog Note Date Prog Note Date: 10/21/21 - Subjective Pt reports feeling: Improved Subjective: Patient states that he feels hungry but is worried that he will have pain after eating. "Stuff runs through him." He tolerates fish (in particular cod or salmon) chicken and turkey more than red meat. Bread also seems to bother him. He admits that he has lost a lot of weight. Current Medications - Current Medications Current Medications: Current inpatient list reviewed. Patient is on and should continue BID PPI. Objective - Vital Signs/Intake & Output Reviewed Vital Signs: Yes Intake & Output: Intake & Output 10/18/21 10/19/21 10/20/21 10/21/21 23:59 23:59 23:59 23:59 Intake Total 1880 1320 590 Output Total 1050 0921 102 5941 Balance 830 295 15 -1300 - Objective General Appearance: positive: No acute distress (No physical examination done.) - Lab Results Fish Bones: 10/17/21 05:50 10/19/21 11:00 Other Labs: Lab Results x24hrs 10/21/21 Range/Units 10:45 Total Bilirubin 0.5 (0.2-1.0) mg/dL Direct Bilirubin 0.1 (0.1-0.5) mg/dL AST 11 (10-42) IU/L ALT 12 (10-60) IU/L Alkaline Phosphatase 68 (42-121) IU/L Total Protein 4.7 L (6.7-8.2) g/dL Albumin 1.5 L (3.2-5.5) g/dL Globulin 3.2 (2.1-4.2) g/dL Assessment/Plan - Problem List (1) Adynamic ileus Impression: The patient's symptoms where food runs through him is secondary to his cancer treatment as the absorptive surface of hi bowel is affected. I explained this to him and that he should eat additional calories to overcome this. BID PPI should be continued. Additionally I explained that the patient should experiment with different quantities and types of food. With his weight loss it is important the he gets calories into him - what exact calories these are is less important. He should graze rather than eat large meals. He agreed. I explained that there will be set backs as he tries different foods and regimens but the setbacks do not mean that he has to come back to the hospital. I asked him to contact me if there is anyway I can help or help with any surgical questions. Regarding his chemotherapy I suggested that he cover these topics with Dinah Brandt MD (his oncologist). Over 30 minutes of [id number] time was spent with him all in conversation
[2021-10-21] MEDS: POTASSIUM CHLORIDE 20 MEQ/15 ML UDC PO SCH (17:25)
[2021-10-22] MEDS: SODIUM CHLORIDE FLUSH 0.9% 10 ML SYRINGE IVP SCH ×2 (06:15→09:11)
[2021-10-22] MEDS: PANTOPRAZOLE 40 MG TABLET PO SCH ×2 (06:15→14:42)
[2021-10-22] MEDS ORDERED: METOPROLOL SUCCINATE 25 MG TABLET PO SCH (09:00)
[2021-10-22] MEDS: LOPERAMIDE 2 MG CAPSULE PO SCH (09:08)
[2021-10-22] MEDS: TAMSULOSIN 0.4 MG CAPSULE PO SCH (09:08)
[2021-10-22] MEDS: LACTOBACILLUS RHAMNOSUS GG CAPSULE PO SCH (09:08)
[2021-10-22] MEDS: ENOXAPARIN 40 MG/0.4 ML SYRINGE SUBQ SCH (09:08)
[2021-10-22] MEDS: FERROUS GLUCONATE 324 MG TABLET PO SCH (09:09)
[2021-10-22] MEDS: MULTIVITAMIN W/MINERALS TABLET PO SCH (09:09)
--- NOTE | 2021-10-22 12:35 | Discharge Plan ---
"Discharge Plan for SNF / [facility] - Discharge Plan And Transition Orders Problem Reviewed?: Yes Disposition: 03 SNF DC/Xfer Condition: Stable Allergies and Adverse Reactions: Allergies Allergy/AdvReac Type Severity Reaction Status Date / Time No Known Drug Allergies Allergy Verified 09/16/21 11:42 Health Concerns: Patient admitted with neutropenic colitis with Hx of chemo-induced diarrhea and rectal cancer. He has significant malnutrition and deconditioning, needing SNF for PT and OT rehab. Plan of Treatment: As above and all meds ordered thru [facility]. Care Goals: Improvement in symptoms and stabilization are the goals. Assessment: The patient and son understand and are in agreement with the plan. - SNF / [facility] Transition Orders Admit to (Facility): [facility] Discharge Diagnosis: (1) Neutropenic colitis (2) Adenocarcinoma of rectum, stage 3 (3) Chemotherapy-induced diarrhea (4) Malnutrition, severe (5) Physical deconditioning (6) SVT (supraventricular tachycardia) (7) Hypotension (8) BPH Medicare Certification Statement: I certify that Post Hospital fpc care is medically necessary on a continuing basis for any of the conditions for which she/he is receiving care during hospitalization. Notify PCP of admission and forward orders to primary provider for signature. Weight on admission and: Weekly Other Notification Orders: Call PCP immediately if patient develops dyspnea, chest pain/tightness or edema. House Bowel Program: Yes Additional Bowel Program Orders: If no BM after 2 days, nurse may give M.O.M. 30ml PO PRN and/or ducolax Supp 1 [place] and/or AWA 250mg P.O., and/or senna 1-2 tabs PO. On day 3 nurse may give repeat above order until residents constipation is resolved. Annual Influenza Vaccine (between Jul 22 and February 18): Yes Two-step PPD per [facility] [phone] or approved exception documents: Yes Treatments & Other Orders: Daily PT and OT Medication Orders: PLEASE REFER TO THE DISCHARGE MEDICATION LIST. Insulin Orders?: No - Medications New Prescriptions: Lactobacillus Rhamnosus GG [Culturelle] 1 cap PO DAILY #15 cap Ferrous Gluconate [Fergon] 324 mg PO DAILYWM #30 tablet Tamsulosin [Flomax] 0.4 mg PO DAILY #30 cap Loperamide [Imodium] 2 mg PO QID PRN #60 cap PRN Reason: Diarrhea Loperamide [Imodium] 2 mg PO DAILY #30 cap Potassium Chloride Oral Soln [Potassium Chloride] 20 meq PO QDDINNER #30 units Pantoprazole [Protonix] 40 mg PO BIDAC #60 tablet Multivitamin W/Minerals [Theragran M] 1 tab PO DAILYWM #30 tablet Metoprolol Succinate [Toprol Xl] 6.25 mg PO DAILY #8 tablet - Diet Type: Geriatric (Gluten-free, no dairy, no beef or pork) Texture: Mech soft Liquids: Thin Supplements: Snack at mid-morning, mid-afternoon & before bed May have monthly special meal: Yes - Therapies | Activity Therapy: Evaluation | Treat if indicated: PT, OT Rehabilitation Potential: Maximize functional status Activity: Activity as Tolerated Weight Bearing: Full Weight Assistance Devices: Walker Follow Up: See PCP after DCh from SNF."
--- NOTE | 2021-10-22 12:47 | DISCHARGE SUMMARY ---
Discharge Summary Admit Date: 09/18/21 Discharge Date: 10/22/21 Discharging Provider: Dr Lenore Springer Primary Care Provider: Dr Jose David Nobles Condition at Discharge: Stable Discharge Disposition: 03 SNF DC/Xfer - DIAGNOSES Admission Diagnoses: (1) Adynamic ileus (2) Metabolic acidosis with respiratory alkalosis (3) Chemotherapy-induced diarrhea (4) Chemotherapy induced neutropenia (5) Hypokalemia (6) Adenocarcinoma of rectum, stage 3 (7) SVT (supraventricular tachycardia) (8) Acute kidney injury Discharge Diagnoses with Status of Each Condition: (1) Neutropenic colitis Nearly resolved (2) Adenocarcinoma of rectum, stage 3 Followed by Oncology (3) Chemotherapy-induced diarrhea Nearly resolved (4) Malnutrition, severe Chronic (5) Physical deconditioning Chronic (6) SVT (supraventricular tachycardia) Resolved on meds (7) Hypotension Chronic (8) BPH Chronic (9) Chronic indwelling Vaz catheter Chronic as of this admission - HPI History of Present Illness: From the admission H&P of Dr Raysa Medina: 76-year-old white male who presented to the emergency room with sudden severe shortness of breath. No chest pain, no abdominal pain. No cough, fever, chills, phlegm production, chest congestion. This is the third day pallavi row in the emergency room. He was seen in September 16 and September 17 for the complaints of generalized weakness, severe fatigue in the context of chemotherapy induced diarrhea. There was no abdominal pain with this. No fever or chills. Diarrhea was described as liquid and watery. No tenesmus. No blood. No stool culture were done. With a visit on September 16 and September 17 he received IV hydration. He was noted to be neutropenic from the chemotherapy. But BUN and creatinine were normal. He was sent home. He has a history of adenocarcinoma of the rectum. He presented in April of this year with rectal bleeding and seen in the ER. CT scan showed rectal wall involvement. Final staging is T3N1. He is being followed by [facility] oncology and is seeing Dinah Benavides. Started on mFOLFOX 6 on August 11, 2021. They are monitoring [address] staging that is new compared to a CT from 2013. He did cycle 3 on September 08, 2021. The plan is for him to complete 8 to 12 weeks of chemotherapy and then he is good to have concurrent chemo and radiation. When he started his CEA was 4.8. Unfortunately it is 10.5 with his most recent visit on September 08. Today he returns with a sudden shortness of breath. He was evaluated by Dr. Scanlon who found him to have a temperature of 36.6. Heart rate of 124. Pressure 155/133. Respirations 41. He was cold, and his body has clamped down on hands and feet with EMS reported O2 sats that were difficult to obtain. They could not tell if he was hypoxic or that he was just so cold that oximetry could not read. He was not cyanotic. Very lethargic, very difficult to get a history out of. He received a liter wide open and was started on 500 cc an hour. Because of the hypoxemia and sudden respiratory deterioration, he went to the CT scanner for CT angiogram. CT angiogram is without pulmonary embolus, or acute cardiopulmonary process. However he has visualized portions of the upper abdomen demonstrating moderate gastric distention as well as multiple dilated loops of bowel within the right upper quadrant. He has become significantly more hypotensive in the emergency room but at the same time becoming a little bit more alert and talkative. He is asking to be repositioned in the bed and is asking for his hat because his head is cold. While we were speaking to him he went into a narrow complex tachycardia of over 180 heart beats per minute. He is speaking with a fast panting respiratory rate and tells me that he does not know how much longer he can breathing this past because he is so tired. Sodium is 132, potassium 2.4. Creatinine was normal yesterday and the day before and is now 2.2. GFR is gone from 110->>29. Random glucose 141. Magnesium 2.9. Total bili 1.5. AST and ALT are less than 10. Troponin is 121. BNP is 149. He continues to be neutropenic with a white cell count of 2.0. Platelet count had gone down to 82 on September 08 and is come back up to 145 with today's labs. Blood gas is pH 7.41/PCO2 11/PO2 484/HCO3 6.8/base excess -13.6. BiPAP of 100% FiO2 at 5/12.I am interpreting this as metabolic acidosis with a compensatory tachypnea to bring down his PCO2. In this patient causes would be severe dehydration, cancer, or possible belly infection on the basis of the CT angiogram of the chest showing dilated loops of bowel. - HOSPITAL COURSE Hospital Course: Patient was admitted to the ICU, started on IV fluids at an aggressive rate, ordered to have bowel rest and ng tube decompression for his adynamic ileus/small bowel obstruction. General mergers and acquisitions consultant following along, but the patient did not need to go to the OR. The patient was started on empiric IV antibiotics. CT scans were repeated and continued to show inflammatory changes of his colon. He continued to have diarrhea and abdominal pain. He was on a Diltiazem drip to manage his SVT, which was eventually transitioned to oral B- zora. An Echo showed normal LV function. He developed urinary retention and needed to be started on meds for BPH and finally a Vaz was left in place. His hemodynamics and electrolytes were stabilized and he was transferred out of the ICU. He had several attempts at advancing his diet and each time he would have severe abdominal pain or worsened diarrhea. He was tested for C. difficile which was negative. He eventually did tolerate a very slow advancement of diet with only limited foods that he could tolerate (chicken, fish, rice, potatoes, scrambled eggs, but no beef, no pork, no bread). Imodium was ordered prn and then scheduled daily to help decrease his diarrhea. This patient has muscle wasting, loss of subcutaneous fat and temporal muscle wasting, and he had nutritional intake of <50% of recommended intake for many weeks. He became very deconditioned, needed physical therapy and was also unable to carry out ADLs (he still could not toilet independently at the time of discharge). He was discharged for PT and OT rehab to [facility]. - ALLERGIES Allergies/Adverse Reactions: Allergies Allergy/AdvReac Type Severity Reaction Status Date / Time No Known Drug Allergies Allergy Verified 09/16/21 11:42 - MEDICATIONS Home Medications: Ambulatory Orders Medication Instructions Recorded Confirmed Acetaminophen [Tylenol] 650 mg PO Q4HR PRN tablet 10/22/21 Ferrous Gluconate [Fergon] 324 mg PO DAILYWM #30 tablet 10/22/21 Lactobacillus Rhamnosus GG 1 cap PO DAILY #15 cap 10/22/21 [Culturelle] Loperamide [Imodium] 2 mg PO DAILY #30 cap 10/22/21 Loperamide [Imodium] 2 mg PO QID PRN #60 cap 10/22/21 Metoprolol Succinate [Toprol Xl] 6.25 mg PO DAILY #8 tablet 10/22/21 Multivitamin W/Minerals [Theragran 1 tab PO DAILYWM #30 tablet 10/22/21 M] Pantoprazole [Protonix] 40 mg PO BIDAC #60 tablet 10/22/21 Potassium Chloride Oral Soln 20 meq PO QDDINNER #30 units 10/22/21 [Potassium Chloride] Tamsulosin [Flomax] 0.4 mg PO DAILY #30 cap 10/22/21 - PHYSICAL EXAM AT DISCHARGE General Appearance: positive: No acute distress, Alert, Other (Cachectic, 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 baldness) Eyes Bilateral: positive: Normal inspection, EOMI ENT: positive: ENT inspection nml, No signs of dehydration Neck: positive: Nml inspection, No JVD Respiratory: positive: No respiratory distress, Breath sounds nml Cardiovascular: positive: Regular rate & rhythm, No murmur Abdomen: positive: Non-tender, Nml bowel sounds, No distention Skin: positive: Warm, Dry Extremities: positive: Non-tender, No pedal edema Neurologic/Psychiatric: positive: Oriented x3 (Non-focal) - LABS Result Diagrams: 10/17/21 05:50 10/19/21 11:00 - DIAGNOSTIC IMAGING Diagnostic Imaging Results: Final report reviewed - FOLLOW UP Follow Up: See PCP after DCh from SNF. - TIME SPENT Time Spent in Discharge (Minutes): 60
[2021-10-22 13:08] VITALS: BP 102/60
[2021-10-22 15:42] LABS: CORONAVIRUS 229E-RESP PCR NOT DETECTED; CORONAVIRUS HKU1-RESP PCR NOT DETECTED; CORONAVIRUS NL63-RESP PCR NOT DETECTED; CORONAVIRUS OC43-RESP PCR NOT DETECTED
[2021-10-22 15:43] LABS: B. PARAPERTUSSIS- RESP PCR PAN NOT DETECTED; B. PERTUSSIS- RESP PCR PANEL NOT DETECTED; C. PNEUMONIAE- RESP PCR PANEL NOT DETECTED; HUMAN METAPNEUMOVIRUS NOT DETECTED; INFLUENZA A- RESP PCR PANEL NOT DETECTED; INFLUENZA B - RESP PCR PANEL NOT DETECTED; M. PNEUMONIAE- RESP PCR PANEL NOT DETECTED; PARAINFLUENZA VIRUS 1 NOT DETECTED; PARAINFLUENZA VIRUS 2 NOT DETECTED; PARAINFLUENZA VIRUS 3 NOT DETECTED; PARAINFLUENZA VIRUS 4 NOT DETECTED; RHINOVIRUS/ENTEROVIRUS NOT DETECTED; RSV- RESP PCR PANEL NOT DETECTED; SARS-CoV-2 -RESP PCR PANEL NOT DETECTED
[2021-10-22] MEDS: GI COCKTAIL 120 ML BOTTLE PO PRN (15:57)
== END 2021-10-22 15:55 | DRG 391 ==
LOC: EDUNIT# → ED 20:37 → ICU 22:41 → MS2 09-30 14:27
PROVIDERS: ADMIT Specialist; ATTEND Internal Medicine
DX: K52.89 Other specified noninfective gastroenteritis and colitis (principal); E43 Unspecified severe protein-calorie malnutrition; C20 Malignant neoplasm of rectum; K56.0 Paralytic ileus; K52.1 Toxic gastroenteritis and colitis; I47.1 Supraventricular tachycardia; E87.4 Mixed disorder of acid-base balance; R10.9 Unspecified abdominal pain; R11.2 Nausea with vomiting, unspecified; R19.7 Diarrhea, unspecified; R53.1 Weakness; N17.9 Acute kidney failure, unspecified; E87.1 Hypo-osmolality and hyponatremia; E87.0 Hyperosmolality and hypernatremia; K56.609 Unspecified intestinal obstruction, unspecified as to partial versus complete obstruction; D70.1 Agranulocytosis secondary to cancer chemotherapy; T45.1X5A Adverse effect of antineoplastic and immunosuppressive drugs, initial encounter; Y92.9 Unspecified place or not applicable; Z68.22 Body mass index [BMI] 22.0-22.9, adult; I95.9 Hypotension, unspecified; R09.02 Hypoxemia; M62.58 Muscle wasting and atrophy, not elsewhere classified, other site; E86.0 Dehydration; N40.1 Benign prostatic hyperplasia with lower urinary tract symptoms; R33.8 Other retention of urine; K21.9 Gastro-esophageal reflux disease without esophagitis; E87.6 Hypokalemia; Z95.0 Presence of cardiac pacemaker; R63.0 Anorexia; E16.2 Hypoglycemia, unspecified; E87.8 Other disorders of electrolyte and fluid balance, not elsewhere classified; K22.0 Achalasia of cardia; D53.9 Nutritional anemia, unspecified; D70.2 Other drug-induced agranulocytosis; Z20.822 Contact with and (suspected) exposure to COVID-19
CPT/HCPCS: 36415; 36600; 71045; 71275; 74018; 74176; 74177; 76705; 80048; 80053; 80076; 80162; 81599; 82310; 82330; 82378; 82533; 82607; 82728; 82746; 82803; 83540; 83605; 83690; 83735; 83880; 84100; 84132; 84134; 84443; 84466; 84478; 84484; 85025; 85379; 86140; 87040; 87045; 87150; 87427; 87449; 87493; 87631; 93005; 93306; 96361; 96374; 96375; 97110; 97116; 97162; 97165; 97530; 97535; 99285; 99291; A6250; A9270; J1650; J2765; J3370; J3490; J7040; J7120; Q9967; 0202U; 87046; 87081

== ENCOUNTER 2021-09-18 20:51 | Outpatient (CLI) | payer MEDICARE | END 2021-09-18 20:52 | disposition critical access hospital (66) | LOC: EMS 20:51 | DX: R06.03 Acute respiratory distress (principal) | CPT/HCPCS: A0425; A0427 ==

== ENCOUNTER 2021-11-06 12:45 | Outpatient (CLI) | payer MEDICARE | END 2021-11-06 12:46 | disposition critical access hospital (66) | LOC: EMS 12:45 | DX: R07.89 Other chest pain (principal) | CPT/HCPCS: A0425; A0429 ==

== ENCOUNTER 2021-11-06 12:53 | Emergency (ER) | payer MEDICARE ==
[2021-11-06] MEDS ORDERED: SODIUM CHLORIDE 0.9% 1,000 ML IV STA (13:10)
--- NOTE | 2021-11-06 13:10 | ED Physician Documentation ---
History of Present Illness - Stated complaint Stated Complaint: CHEST PX - Chief complaint Chief Complaint: Cardiac - Additonal information Additional information: 76-year-old male who has a history of adenocarcinoma of the rectum stage III c urrently undergoing chemotherapy presents the emergency department for evaluation of chest tightness. He reports that he had eaten the soup flavor that was prepared for him at [facility]. It did cause him to have some diarrhea which she states is not unusual. He went to sleep but when woke up found that he was very short of air. He had a tightness in his chest that would not get better. Ultimately 911 was summoned and he was given 325 mg of aspirin in route. No nitroglycerin was given due to a blood pressure of 110 systolic. He reports that the tightness is improving. No history of MA in the past. This gentleman did have a prolonged hospitalization in late September for uncontrolled diarrhea, and ileus, metabolic acidosis and hypokalemia. He denies any recent fevers. Nonbloody diarrhea. No dysuria urgency or frequency. He is not anticoagulated. Review of Systems Constitutional: denies: Fever, Chills Eyes: reports: Reviewed and negative Ears: reports: Reviewed and negative Throat: reports: Reviewed and negative Cardiac: reports: Chest pain / pressure. denies: Palpitations, Pedal edema, Calf pain Respiratory: reports: Dyspnea. denies: Cough GI: reports: Diarrhea. denies: Abdominal Pain, Nausea, Vomiting : reports: Reviewed and negative Skin: reports: Reviewed and negative Musculoskeletal: reports: Reviewed and negative PD PAST MEDICAL HISTORY - Past Medical History Cardiovascular: None Respiratory: None Neuro: None Endocrine/Autoimmune: None GI: GERD, GI bleed, Ulcers, Other : None HEENT: Chronic vision loss Psych: None Musculoskeletal: Osteoarthritis Derm: None - Past Surgical History Past Surgical History: Yes General: Cholecystectomy, Colonoscopy, Other - Present Medications Home Medications: Ambulatory Orders Medication Instructions Recorded Confirmed Acetaminophen [Tylenol] 650 mg PO Q4HR PRN tablet 10/22/21 11/06/21 Ferrous Gluconate [Fergon] 324 mg PO DAILYWM #30 tablet 10/22/21 11/06/21 Lactobacillus Rhamnosus GG 1 cap PO DAILY #15 cap 10/22/21 11/06/21 [Culturelle] Loperamide [Imodium] 2 mg PO DAILY #30 cap 10/22/21 11/06/21 Loperamide [Imodium] 2 mg PO QID PRN #60 cap 10/22/21 11/06/21 Metoprolol Succinate [Toprol Xl] 6.25 mg PO DAILY #8 tablet 10/22/21 11/06/21 Multivitamin W/Minerals [Theragran 1 tab PO DAILYWM #30 tablet 10/22/21 11/06/21 M] Pantoprazole [Protonix] 40 mg PO BIDAC #60 tablet 10/22/21 11/06/21 Potassium Chloride Oral Soln 20 meq PO QDDINNER #30 units 10/22/21 11/06/21 [Potassium Chloride] Tamsulosin [Flomax] 0.4 mg PO DAILY #30 cap 10/22/21 11/06/21 Calcium Carbonate [Tums (Calcium 1,000 mg PO QID PRN 11/06/21 11/06/21 Carbonate 500mg)] Mag Hydrox/Aluminum Hyd/Simeth 20 ml PO Q6HR PRN 11/06/21 11/06/21 [Mylanta Maximum Strength Liq] Non Formulary 450 mg PO DAILY 11/06/21 11/06/21 - Allergies Allergies/Adverse Reactions: Allergies Allergy/AdvReac Type Severity Reaction Status Date / Time No Known Drug Allergies Allergy Verified 11/06/21 12:59 - Social History Does the pt smoke?: No Smoking Status: Never smoker Does the pt drink ETOH?: No Does the pt have substance abuse?: No - Immunizations Immunizations are current?: No Immunizations: TDAP >10years/unknown - POLST Patient has POLST: No POLST Status: Full Code PD ED PE EXPANDED - General General: Alert, Other (Developing alopecia. Chronically ill appearance.) - Cardiac Cardiac: Regular Rate, Radial strong equal, Pedal strong equal, Cap refill < 2 sec - Respiratory Respiratory: Clear to ausultation moise. No: Distress, Labored, Stridor - Abdomen Abdomen: Normal Bowel sounds. No: Tender to palpation - Derm Derm: Normal color, Warm and dry - Neuro Neuro: Alert and Oriented X 3, CNII-XII intact Results - Vitals Vitals: Vital Signs - 24 hr 11/06/21 12:59 Temperature 36.6 C Heart Rate 82 Respiratory 16 Rate Blood Pressure 107/64 O2 Saturation 100 Oxygen O2 Source Room air - EKG (time done) 1256 Rate: Rate (enter#) (80) Rhythm: NSR, Other (PAC) Pompey: Normal Intervals: Normal RI. No: Prolonged QT QRS: Low voltage Ischemia: Normal ST segments Compare to prior EKG: Changed from prior EKG (now sinus; previously ST) Computer interpretation: Agree with computer - Labs Labs: Laboratory Tests 11/06/21 11/06/21 11/06/21 13:13 13:13 13:13 WBC 2.4 L RBC 2.73 L Hgb 9.0 L Hct 28.0 L MCV 102.6 H MCH 33.0 H MCHC 32.1 RDW 15.3 H Plt Count 141 MPV 9.1 Neut # (Auto) 1.4 L Lymph # (Auto) 0.7 L Ector # (Auto) 0.2 Eos # (Auto) 0.1 Baso # (Auto) 0.0 Absolute Nucleated RBC 0.00 Band Neuts % (Manual) Not Reportable Abnorm Lymph % (Manual) Not Reportable Nucleated RBC % 0.0 Neutrophils # (Manual) Not Reportable Lymphocytes # (Manual) Not Reportable Monocytes # (Manual) Not Reportable Eosinophils # (Manual) Not Reportable Basophils # (Manual) Not Reportable Differential Comment MANUAL=AUTO DIFF Manual Slide Review Indicated WBC Morphology NORMAL APPEARANCE Platelet Estimate DECREASED (<130,000) Platelet Morphology NORMAL APPEARANCE RBC Morph Micro Appear 1+ MACROCYTOSIS PT 16.5 H INR 1.5 H Sodium 138 Potassium 2.5 L* Chloride 104 Carbon Dioxide 24 Anion Gap 10.0 BUN 14 Creatinine 0.6 Estimated GFR (MDRD) 132 Glucose 118 H Lactic Acid Calcium 6.9 L Total Bilirubin 0.4 AST 18 ALT 16 Alkaline Phosphatase 73 Troponin I High Sens Total Protein 4.9 L Albumin 1.9 L Globulin 3.0 Albumin/Globulin Ratio 0.6 L Lipase 19 L 11/06/21 11/06/21 13:13 13:13 WBC RBC Hgb Hct MCV MCH MCHC RDW Plt Count MPV Neut # (Auto) Lymph # (Auto) Ector # (Auto) Eos # (Auto) Baso # (Auto) Absolute Nucleated RBC Band Neuts % (Manual) Abnorm Lymph % (Manual) Nucleated RBC % Neutrophils # (Manual) Lymphocytes # (Manual) Monocytes # (Manual) Eosinophils # (Manual) Basophils # (Manual) Differential Comment Manual Slide Review WBC Morphology Platelet Estimate Platelet Morphology RBC Morph Micro Appear PT INR Sodium Potassium Chloride Carbon Dioxide Anion Gap BUN Creatinine Estimated GFR (MDRD) Glucose Lactic Acid 2.1 Calcium Total Bilirubin AST ALT Alkaline Phosphatase Troponin I High Sens 11.3 Total Protein Albumin Globulin Albumin/Globulin Ratio Lipase - Rads (name of study) CXR Radiology: Final report received (No acute findings) CT chest Radiology: Final report received (No pulmonary embolus. Small left pleural effusion. Coronary artery disease.) PD MEDICAL DECISION MAKING - ED course Complexity details: reviewed results, re-evaluated patient, considered differential, d/w patient ED course: 76-year-old male who has a history of stage III rectal adenocarcinoma undergoing active chemotherapy presents to the emergency department for evaluation of chest tightness that occurred after eating this morning symptoms began about 9am. He has had no fevers. He did receive aspirin via EMS. By the time he presented to the emergency department he was pain-free. Screening EKG is nonischemic. Initial high-sensitivity troponin is negative. Otherwise he does have noted neutropenia consistent with a history of chemotherapy. His electrolytes do show a potassium of 2.5. He was repleted with 40 potassium here in the ER and is on daily supplementation. Patient does have a heart score of 3 receiving points for age and risk factors only. Patient recently had an echocardiogram that was unremarkable for age. Given the history of cancer and shortness of air a CT pulmonary angio was completed to rule out a Pulmonary embolus and was reassuringly negative. On reevaluation the patient reports that he feels much better and desires to be discharged back. Advise close follow-up with primary care provider as well as oncology. Emergent return precautions discussed. Departure - Departure Disposition: 01 Home, Self Care Clinical Impression: Hypokalemia Chest pain Qualifiers: Chest pain type: unspecified Qualified Code(s): R07.9 - Chest pain, unspecified Condition: Stable Record reviewed to determine appropriate education?: Yes Follow-Up: Jose David Nobles MD [Primary Care Provider] - Comments: Maikel you were seen in the emergency department today for chest pain. Your EKG did not show any worrisome findings. Your chest x-ray was normal. We did do a CT angiogram of the chest to make sure that you did not have blood clots as you do have a history of cancer. This was also normal. Your screening labs today do show a decreased white blood cell count, but we see this often in patients to have a history of cancer. Your potassium was low at 2.5. We did give you 40 mEq of potassium. Please continue to take the potassium already scheduled. I do recommend that you have your labs repeated in 1 week to ensure the potassium is not dropping further. Discussed this ED visit with your primary care provider. If at any point you develop chest pain again, have fevers, any fainting or severe shortness of air then please return immediately to the ER for second evaluation.
[2021-11-06] MEDS ORDERED: IOPAMIDOL-300 100 ML VIAL ONE ×2 (13:17→14:19)
[2021-11-06 13:19] LABS: BASOPHILS % (AUTO) 0.9 %; EOSINOPHILS # (AUTO) 0.1 10^3/uL (0.0-0.7); EOSINOPHILS % (AUTO) 3.4 %; LYMPHOCYTES # (AUTO) 0.7 10^3/uL (1.5-3.5); LYMPHOCYTES % (AUTO) 27.7 %; MEAN CORPUSCULAR HGB CONC 32.1 g/dL (32.0-36.0); MEAN CORPUSCULAR VOLUME 102.6 fL (80.0-94.0); MEAN PLATELET VOLUME 9.1 fL (7.4-11.4); MONOCYTES # (AUTO) 0.2 10^3/uL (0.0-1.0); MONOCYTES % (AUTO) 10.2 %; NEUTROPHILS # (AUTO) 1.4 10^3/uL (1.5-6.6); NEUTROPHILS % (AUTO) 57.4 %; PLT - PLATELET COUNT 141 10^3/uL (130-450); RED BLOOD COUNT 2.73 10^6/uL (4.70-6.10); RED CELL DISTRIBUTION WIDTH 15.3 % (12.0-15.0); WHITE BLOOD COUNT 2.4 x10^3/uL (4.8-10.8)
[2021-11-06 13:23] LABS: SLIDE REVIEW? Indicated
[2021-11-06 13:29] LABS: INR 1.5 (0.8-1.2); PT - PROTHROMBIN TIME 16.5 secs (9.9-12.6)
--- NOTE | 2021-11-06 13:31 | XRAY Report ---
PROCEDURE: Chest 1 View X-Ray INDICATIONS: Chest Pain TECHNIQUE: One view of the chest was acquired. COMPARISON: 09/29/2021 chest radiograph. FINDINGS: Surgical changes and devices: Left chest wall central venous port catheter terminates near the cavoat rial junction. Lungs and pleura: No pleural effusions or pneumothorax. Lungs are clear. Mediastinum: Mediastinal contours appear normal. Heart size is normal. Bones and chest wall: No suspicious bony lesions. Overlying soft tissues appear unremarkable. IMPRESSION: No acute finding. Reviewed by: Kayden Chi MD on 11/06/2021 1:30 PM [facility] Approved by: Kayden Chi MD on 11/06/2021 1:30 PM [facility] Station ID: [id number]
[2021-11-06 13:35] LABS: ALBUMIN 1.9 g/dL (3.2-5.5); ALBUMIN/GLOBULIN RATIO 0.6 (1.0-2.2); BILIRUBIN,TOTAL 0.4 mg/dL (0.2-1.0); CALCIUM 6.9 mg/dL (8.5-10.3); CREATININE 0.6 mg/dL (0.6-1.2); TOTAL PROTEIN 4.9 g/dL (6.7-8.2)
[2021-11-06 13:38] LABS: POTASSIUM 2.5 mmol/L (3.5-5.0)
[2021-11-06] MEDS ORDERED: POTASSIUM CHLORIDE 20 MEQ/15 ML UDC PO ONE (14:00)
[2021-11-06 14:05] LABS: RBC MORPHOLOGY (MULTIPLE) 1+ MACROCYTOSIS (NORMAL)
[2021-11-06 14:07] LABS: PLATELET MORPHOLOGY NORMAL APPEARANCE (NORMAL)
[2021-11-06 14:08] LABS: DIFFERENTIAL COMMENT MANUAL=AUTO DIFF; PLATELET ESTIMATE, MANUAL DECREASED (<130,000) (NORMAL); WBC MORPHOLOGY (MULTIPLE) NORMAL APPEARANCE (NORMAL)
[2021-11-06] MEDS ORDERED: IOPAMIDOL-300 100 ML VIAL IVP ONE (14:35)
--- NOTE | 2021-11-06 15:08 | CT Report ---
PROCEDURE: ANGIO CHEST W/WO INDICATIONS: SOA, chest tightness; cancer; ? PE CONTRAST: IV CONTRAST: Isovue 300 ml: 100 PO CONTRAST: *NO PO CONTRAST TECHNIQUE: After the administration of intravenous contrast, 2 mm axial images were acquired from the pulmonary apices to the posterior costophrenic angles during the arterial phase. In addition, 1 mm lung kernel and 5 mm soft tissue kernel reconstructions were performed. 3-dimensional coronal oblique maximum int ensity projection (MIP) reformats, 8 mm axial MIP, and 5 mm coronal and sagittal MPR reformats were t hen performed through the thorax. For radiation dose reduction, the following was used: automated exp osure control, adjustment of mA and/or kV according to patient size. COMPARISON: CT dated 09/23/2021 FINDINGS: Image quality: Excellent. Pulmonary arteries: Pulmonary arteries are normal in size, and demonstrate no intraluminal filling d efects to suggest central pulmonary embolism. Lungs and pleura: There is a 4 mm nodule within the left upper lobe medially (series 6 image 80), as before. Small left pleural effusion. Central and peripheral airways are patent. Mediastinum: Heart size is normal, without pericardial effusion. Mild calcification of the coronary vasculature. No mediastinal or hilar adenopathy. Thoracic aorta is normal in caliber and enhancemen t. Esophagus is normal in caliber, without hiatal hernia. Bones and chest wall: Left chest wall nish catheter. No suspicious bony lesions. Ribs and thoracic spine appear intact throughout. No axillary or supraclavicular adenopathy. The thyroid is normal i n size and there are no incidental findings. Abdomen: Visualized upper abdominal solid organs appear normal in the early arterial phase of enhanc ement. IMPRESSION: 1. No pulmonary embolus. 2. Small left pleural effusion. 3. Coronary artery disease. CLINICAL RECOMMENDATION STATEMENTS: In patients <35 years with an ITN detected on CT, MRI, or extrathyroidal ultrasound, the Committee re commends further evaluation with dedicated thyroid ultrasound if the nodule is "e1 cm and has no susp icious imaging features, and if the patient has normal life expectancy. In patients "e35 years with an ITN detected on CT, MRI, or extrathyroidal ultrasound, the Committee r ecommends further evaluation with dedicated thyroid ultrasound if the nodule is "e1.5 cm and has no s uspicious imaging features, and if the patient has normal life expectancy. (ACR, 2014) Reviewed by: Tee Craft MD on 11/06/2021 2:06 PM [place] Approved by: Tee Craft MD on 11/06/2021 2:06 PM [place] Station ID: [id number]
[2021-11-06 15:18] VITALS: BP 112/68
== END 2021-11-06 15:35 | disposition home or self-care (01) ==
LOC: EDUNIT# → ED 12:53
DX: E87.6 Hypokalemia (principal); R07.89 Other chest pain; R06.02 Shortness of breath; I49.1 Atrial premature depolarization; C20 Malignant neoplasm of rectum
CPT/HCPCS: 36415; 71045; 71275; 80053; 83605; 83690; 84484; 85025; 85610; 93005; 96360; 96361; 99284; A9270; Q9967

== ENCOUNTER 2021-11-10 11:20 | Outpatient (CLI) | payer MEDICARE ==
[2021-11-10 12:29] LABS: CALCIUM 6.7 mg/dL (8.5-10.3); CREATININE 0.4 mg/dL (0.6-1.2)
[2021-11-10 13:06] LABS: POTASSIUM 2.2 mmol/L (3.5-5.0)
== END 2021-11-10 23:59 | disposition home or self-care (01) ==
LOC: LAB.R 11:20
DX: E87.6 Hypokalemia (principal)
CPT/HCPCS: 80048

== ENCOUNTER 2021-11-10 13:52 | Outpatient (CLI) | payer MEDICARE | END 2021-11-10 13:53 | disposition critical access hospital (66) | LOC: EMS 13:52 | DX: R07.9 Chest pain, unspecified (principal) | CPT/HCPCS: A0425; A0427 ==

== ENCOUNTER 2021-11-10 13:58 | Emergency (ER) | payer MEDICARE ==
--- NOTE | 2021-11-10 14:03 | ED Physician Documentation ---
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 He has chronic diarrhea and because of that gets frequent bouts of sometimes profound hypokalemia. Seen for CP last week. At that time he had a potassium of 2.5 but he was still discharged home just prior to today he was at rest and developed substernal chest pressure which was similar t o what he had last week but much milder. It lasted about 3 minutes. It is completely gone at this juncture. It was on both sides of the chest but otherwise nonradiating. Not associated with shortness of breath, sweats or nausea. He has already received aspirin prior to arrival. PD PAST MEDICAL HISTORY - Past Medical History Cardiovascular: None Respiratory: None Neuro: None Endocrine/Autoimmune: None GI: GERD, GI bleed, Ulcers, Other : None HEENT: Chronic vision loss Psych: None Musculoskeletal: Osteoarthritis Derm: None - Past Surgical History Past Surgical History: Yes General: Cholecystectomy, Colonoscopy, Other - Present Medications Home Medications: Ambulatory Orders Medication Instructions Recorded Confirmed Acetaminophen [Tylenol] 650 mg PO Q4HR PRN tablet 10/22/21 11/06/21 Ferrous Gluconate [Fergon] 324 mg PO DAILYWM #30 tablet 10/22/21 11/06/21 Lactobacillus Rhamnosus GG 1 cap PO DAILY #15 cap 10/22/21 11/06/21 [Culturelle] Loperamide [Imodium] 2 mg PO DAILY #30 cap 10/22/21 11/06/21 Loperamide [Imodium] 2 mg PO QID PRN #60 cap 10/22/21 11/06/21 Metoprolol Succinate [Toprol Xl] 6.25 mg PO DAILY #8 tablet 10/22/21 11/06/21 Multivitamin W/Minerals [Theragran 1 tab PO DAILYWM #30 tablet 10/22/21 11/06/21 M] Pantoprazole [Protonix] 40 mg PO BIDAC #60 tablet 10/22/21 11/06/21 Potassium Chloride Oral Soln 20 meq PO QDDINNER #30 units 10/22/21 11/06/21 [Potassium Chloride] Tamsulosin [Flomax] 0.4 mg PO DAILY #30 cap 10/22/21 11/06/21 Calcium Carbonate [Tums (Calcium 1,000 mg PO QID PRN 11/06/21 11/06/21 Carbonate 500mg)] Mag Hydrox/Aluminum Hyd/Simeth 20 ml PO Q6HR PRN 11/06/21 11/06/21 [Mylanta Maximum Strength Liq] Non Formulary 450 mg PO DAILY 11/06/21 11/06/21 Cholestyramine [Questran] 4 gm PO DAILY #90 packet 11/10/21 - Allergies Allergies/Adverse Reactions: Allergies Allergy/AdvReac Type Severity Reaction Status Date / Time No Known Drug Allergies Allergy Verified 11/10/21 14:10 - Social History Does the pt smoke?: No Smoking Status: Never smoker Does the pt drink ETOH?: No Does the pt have substance abuse?: No - Immunizations Immunizations are current?: No Immunizations: TDAP >10years/unknown - POLST Patient has POLST: No POLST Status: Full Code Results - Vitals Vitals: Vital Signs - 24 hr 11/10/21 14:06 Temperature 36.7 C Heart Rate 79 Respiratory 20 Rate Blood Pressure 91/72 O2 Saturation 100 Oxygen O2 Source Room air - EKG (time done) 1358 Rate: Rate (enter#) (81) Rhythm: NSR [place]: Normal Intervals: Normal [place] QRS: Low voltage Ischemia: Normal ST segments. No: ST elevation c/w ischemia, ST depression Compare to prior EKG: Unchanged from prior EKG (from 11/06/21) - Labs Labs: Laboratory Tests 11/10/21 11/10/21 11/10/21 14:48 14:48 14:48 WBC 2.5 L RBC 2.97 L Hgb 9.7 L Hct 30.5 L MCV 102.7 H MCH 32.7 H MCHC 31.8 L RDW 15.8 H Plt Count 163 MPV 9.2 Sodium 141 Potassium 2.7 L Chloride 104 Carbon Dioxide 26 Anion Gap 11.0 BUN 9 Creatinine 0.5 L Estimated GFR (MDRD) 163 Glucose 120 H Calcium 6.7 L Magnesium 0.5 L* Troponin I High Sens 22.0 H* PD MEDICAL DECISION MAKING - ED course ED course: 76-year-old gentleman with multiple comorbidities presents with resolved chest pain that he feels is related to recurrent electrolyte issues which he certainly had trouble with before related to chronic diarrhea. His EKG is nonischemic. He has a borderline troponin but is pain-free here and as such given that it is only a little bit above the normal range I think this does not represent ischemia especially in the setting of ongoing physical stressors. Potassium was repleted orally and magnesium IV. Departure - Departure Disposition: 01 Home, Self Care Clinical Impression: Hypokalemia, Hypomagnesemia, Atypical chest pain Condition: Good Record reviewed to determine appropriate education?: Yes Instructions: Hypokalemia Dc Prescriptions: Cholestyramine [Questran] 4 gm PO DAILY #90 packet Comments: If chest pain recurs please return for reevaluation. You were found to have significant hypomagnesemia and also hypokalemia although you have had that worse in the past. You did receive oral potassium here as well as IV magnesium. Continue current medications. I am prescribing cholestyramine in addition to your Imodium for hopefully some help with the diarrhea.
[2021-11-10 14:58] LABS: BASOPHILS % (AUTO) 0.8 %; EOSINOPHILS % (AUTO) 5.2 %; HCT - HEMATOCRIT 30.5 % (42.0-52.0); HGB - HEMOGLOBIN 9.7 g/dL (14.0-18.0); LYMPHOCYTES % (AUTO) 29.3 %; MEAN CORPUSCULAR HEMOGLOBIN 32.7 pg (27.0-31.0); MEAN CORPUSCULAR HGB CONC 31.8 g/dL (32.0-36.0); MEAN CORPUSCULAR VOLUME 102.7 fL (80.0-94.0); MEAN PLATELET VOLUME 9.2 fL (7.4-11.4); MONOCYTES % (AUTO) 9.2 %; NEUTROPHILS % (AUTO) 55.1 %; PLT - PLATELET COUNT 163 10^3/uL (130-450); RED BLOOD COUNT 2.97 10^6/uL (4.70-6.10); RED CELL DISTRIBUTION WIDTH 15.8 % (12.0-15.0); WHITE BLOOD COUNT 2.5 x10^3/uL (4.8-10.8)
[2021-11-10 15:00] LABS: ABNORMAL LYMPHS % (MANUAL) 0 %; BAND NEUTROPHILS % (MANUAL) 0 %
[2021-11-10 15:09] LABS: CALCIUM 6.7 mg/dL (8.5-10.3); CREATININE 0.5 mg/dL (0.6-1.2); POTASSIUM 2.7 mmol/L (3.5-5.0)
[2021-11-10] MEDS ORDERED: POTASSIUM CHLORIDE 20 MEQ TABLET PO STA (15:11)
[2021-11-10 15:18] LABS: MAGNESIUM 0.5 mg/dL (1.7-2.8)
[2021-11-10] MEDS ORDERED: MAGNESIUM SULFATE 2 GRAM 2 GM/50 ML BAG IV ONE (15:24)
[2021-11-10 15:36] VITALS: BP 116/82
[2021-11-10 15:39] LABS: BASOPHILS # (MANUAL) 0.1 10^3/uL (0-0.1); BASOPHILS % (MANUAL) 2 %; EOSINOPHILS # (MANUAL) 0.1 10^3/uL (0-0.7); LYMPHOCYTES # (MANUAL) 0.8 10^3/uL (1.5-3.5); LYMPHOCYTES % (MANUAL) 33 %; MONOCYTES # (MANUAL) 0.2 10^3/uL (0.0-1.0); NEUTROPHILS # (MANUAL) 1.3 10^3/uL (1.5-6.6); RBC MORPHOLOGY (MULTIPLE) 1+ MACROCYTOSIS (NORMAL)
[2021-11-10 15:40] LABS: DIFFERENTIAL COMMENT MANUAL DIFFERENTIAL; PLATELET ESTIMATE, MANUAL NORMAL (130-450,000) (NORMAL); PLATELET MORPHOLOGY NORMAL APPEARANCE (NORMAL); WBC MORPHOLOGY (MULTIPLE) NORMAL APPEARANCE (NORMAL)
== END 2021-11-10 16:47 | disposition home or self-care (01) ==
LOC: EDUNIT# → ED 13:58
DX: C20 Malignant neoplasm of rectum (principal); E87.6 Hypokalemia; E83.42 Hypomagnesemia; R07.89 Other chest pain
CPT/HCPCS: 36415; 80048; 83735; 84484; 85025; 93005; 96365; 99284; A9270

== ENCOUNTER 2021-11-12 08:27 | Outpatient (CLI) | payer MEDICARE ==
[2021-11-12 08:34] LABS: BASOPHILS % (AUTO) 0.2 %; EOSINOPHILS % (AUTO) 0.2 %; HCT - HEMATOCRIT 29.9 % (42.0-52.0); HGB - HEMOGLOBIN 9.6 g/dL (14.0-18.0); LYMPHOCYTES # (AUTO) 0.2 10^3/uL (1.5-3.5); LYMPHOCYTES % (AUTO) 4.3 %; MEAN CORPUSCULAR HEMOGLOBIN 32.9 pg (27.0-31.0); MEAN CORPUSCULAR HGB CONC 32.1 g/dL (32.0-36.0); MEAN CORPUSCULAR VOLUME 102.4 fL (80.0-94.0); MEAN PLATELET VOLUME 9.8 fL (7.4-11.4); MONOCYTES # (AUTO) 0.3 10^3/uL (0.0-1.0); MONOCYTES % (AUTO) 5.4 %; NEUTROPHILS # (AUTO) 4.2 10^3/uL (1.5-6.6); NEUTROPHILS % (AUTO) 89.7 %; PLT - PLATELET COUNT 134 10^3/uL (130-450); RED BLOOD COUNT 2.92 10^6/uL (4.70-6.10); RED CELL DISTRIBUTION WIDTH 15.7 % (12.0-15.0); WHITE BLOOD COUNT 4.6 x10^3/uL (4.8-10.8)
[2021-11-12 08:43] LABS: CREATININE 0.8 mg/dL (0.6-1.2)
[2021-11-12 09:39] LABS: POTASSIUM 2.2 mmol/L (3.5-5.0)
[2021-11-12 09:40] LABS: CALCIUM 6.4 mg/dL (8.5-10.3); MAGNESIUM 0.6 mg/dL (1.7-2.8)
== END 2021-11-12 08:28 | disposition home or self-care (01) ==
LOC: LAB.R 08:27
PROVIDERS: ATTEND Hospitalist
DX: E87.6 Hypokalemia (principal); K52.1 Toxic gastroenteritis and colitis
CPT/HCPCS: 80048; 83735; 85025

== ENCOUNTER 2021-11-13 13:07 | Outpatient (CLI) | payer MEDICARE ==
[2021-11-13 13:15] LABS: HCT - HEMATOCRIT 30.1 % (42.0-52.0); HGB - HEMOGLOBIN 9.6 g/dL (14.0-18.0); LYMPHOCYTES # (AUTO) 0.4 10^3/uL (1.5-3.5); LYMPHOCYTES % (AUTO) 19.5 %; MEAN CORPUSCULAR HEMOGLOBIN 33.3 pg (27.0-31.0); MEAN CORPUSCULAR HGB CONC 31.9 g/dL (32.0-36.0); MEAN CORPUSCULAR VOLUME 104.5 fL (80.0-94.0); MONOCYTES # (AUTO) 0.2 10^3/uL (0.0-1.0); NEUTROPHILS # (AUTO) 1.3 10^3/uL (1.5-6.6); PLT - PLATELET COUNT 117 10^3/uL (130-450); RED BLOOD COUNT 2.88 10^6/uL (4.70-6.10); RED CELL DISTRIBUTION WIDTH 15.7 % (12.0-15.0)
[2021-11-13 13:21] LABS: CREATININE 0.6 mg/dL (0.6-1.2)
[2021-11-13 13:25] LABS: CALCIUM 6.3 mg/dL (8.5-10.3); MAGNESIUM 0.7 mg/dL (1.7-2.8); POTASSIUM 2.3 mmol/L (3.5-5.0)
[2021-11-13 13:26] LABS: WHITE BLOOD COUNT 1.9 x10^3/uL (4.8-10.8)
[2021-11-13 13:59] LABS: PLATELET ESTIMATE, MANUAL DECREASED (<130,000) (NORMAL); PLATELET MORPHOLOGY NORMAL APPEARANCE (NORMAL); RBC MORPHOLOGY (MULTIPLE) 1+ MACROCYTOSIS (NORMAL); WBC MORPHOLOGY (MULTIPLE) NORMAL APPEARANCE (NORMAL)
[2021-11-13 14:00] LABS: DIFFERENTIAL COMMENT MANUAL=AUTO DIFF
== END 2021-11-13 23:59 | disposition home or self-care (01) ==
LOC: LAB.R 13:07
PROVIDERS: ATTEND Hospitalist
DX: E87.6 Hypokalemia (principal)
CPT/HCPCS: 80048; 83735; 85025

== ENCOUNTER 2021-11-16 12:50 | Outpatient (CLI) | payer MEDICARE ==
[2021-11-16 13:38] LABS: ALBUMIN/GLOBULIN RATIO 0.7 (1.0-2.2); BILIRUBIN,TOTAL 0.3 mg/dL (0.2-1.0); CALCIUM 7.1 mg/dL (8.5-10.3); CREATININE 0.5 mg/dL (0.6-1.2)
[2021-11-16 13:45] LABS: POTASSIUM 2.5 mmol/L (3.5-5.0)
== END 2021-11-16 12:51 | disposition home or self-care (01) ==
LOC: LAB.R 12:50
DX: E43 Unspecified severe protein-calorie malnutrition (principal)
CPT/HCPCS: 80053; 83735

== ENCOUNTER 2021-11-17 13:31 | Outpatient (CLI) | payer MEDICARE ==
[2021-11-17 13:37] LABS: BASOPHILS % (AUTO) 0.4 %; EOSINOPHILS % (AUTO) 4.4 %; HCT - HEMATOCRIT 31.8 % (42.0-52.0); LYMPHOCYTES % (AUTO) 29.8 %; MEAN CORPUSCULAR HEMOGLOBIN 32.5 pg (27.0-31.0); MEAN CORPUSCULAR HGB CONC 31.4 g/dL (32.0-36.0); MEAN CORPUSCULAR VOLUME 103.2 fL (80.0-94.0); MEAN PLATELET VOLUME 10.1 fL (7.4-11.4); MONOCYTES % (AUTO) 9.1 %; NEUTROPHILS % (AUTO) 55.9 %; PLT - PLATELET COUNT 157 10^3/uL (130-450); RED BLOOD COUNT 3.08 10^6/uL (4.70-6.10); RED CELL DISTRIBUTION WIDTH 14.7 % (12.0-15.0); WHITE BLOOD COUNT 2.8 x10^3/uL (4.8-10.8)
[2021-11-17 13:39] LABS: ABNORMAL LYMPHS % (MANUAL) 0 %; BAND NEUTROPHILS % (MANUAL) 0 %
[2021-11-17 13:57] LABS: ALBUMIN 2.2 g/dL (3.2-5.5); ALBUMIN/GLOBULIN RATIO 0.7 (1.0-2.2); BILIRUBIN,TOTAL 0.5 mg/dL (0.2-1.0); CALCIUM 7.2 mg/dL (8.5-10.3); CREATININE 0.6 mg/dL (0.6-1.2); POTASSIUM 2.6 mmol/L (3.5-5.0); TOTAL PROTEIN 5.4 g/dL (6.7-8.2)
[2021-11-17 14:08] LABS: MAGNESIUM 0.8 mg/dL (1.7-2.8)
[2021-11-17 15:36] LABS: BASOPHILS % (MANUAL) 1 %; LYMPHOCYTES # (MANUAL) 0.8 10^3/uL (1.5-3.5); LYMPHOCYTES % (MANUAL) 27 %; MONOCYTES # (MANUAL) 0.2 10^3/uL (0.0-1.0); NEUTROPHILS # (MANUAL) 1.8 10^3/uL (1.5-6.6)
[2021-11-17 15:38] LABS: PLATELET MORPHOLOGY NORMAL APPEARANCE (NORMAL)
[2021-11-17 15:39] LABS: DIFFERENTIAL COMMENT MANUAL DIFFERENTIAL; PLATELET ESTIMATE, MANUAL NORMAL (130-450,000) (NORMAL); WBC MORPHOLOGY (MULTIPLE) NORMAL APPEARANCE (NORMAL)
== END 2021-11-17 13:32 | disposition home or self-care (01) ==
LOC: LAB.R 13:31
DX: E43 Unspecified severe protein-calorie malnutrition (principal)
CPT/HCPCS: 80053; 83735; 85025

== ENCOUNTER 2021-11-23 08:00 | Outpatient (CLI) | payer MEDICARE ==
[2021-11-23 21:14] LABS: BASOPHILS % (AUTO) 0.5 %; EOSINOPHILS % (AUTO) 1.5 %; HCT - HEMATOCRIT 33.4 % (42.0-52.0); HGB - HEMOGLOBIN 10.7 g/dL (14.0-18.0); LYMPHOCYTES % (AUTO) 31.6 %; MEAN CORPUSCULAR HEMOGLOBIN 32.7 pg (27.0-31.0); MEAN CORPUSCULAR VOLUME 102.1 fL (80.0-94.0); MEAN PLATELET VOLUME 10.1 fL (7.4-11.4); NEUTROPHILS % (AUTO) 42.4 %; PLT - PLATELET COUNT 188 10^3/uL (130-450); RED BLOOD COUNT 3.27 10^6/uL (4.70-6.10); RED CELL DISTRIBUTION WIDTH 14.1 % (12.0-15.0)
[2021-11-23 21:31] LABS: ALBUMIN 2.3 g/dL (3.2-5.5); ALBUMIN/GLOBULIN RATIO 0.7 (1.0-2.2); BILIRUBIN,TOTAL 0.7 mg/dL (0.2-1.0); CALCIUM 7.5 mg/dL (8.5-10.3); CREATININE 0.5 mg/dL (0.6-1.2); TOTAL PROTEIN 5.6 g/dL (6.7-8.2)
[2021-11-23 21:39] LABS: MAGNESIUM 0.8 mg/dL (1.7-2.8)
[2021-11-23 21:41] LABS: ABNORMAL LYMPHS % (MANUAL) 0 %
[2021-11-23 22:59] LABS: BAND NEUTROPHILS % (MANUAL) 1 %; DIFFERENTIAL COMMENT MANUAL DIFFERENTIAL; LYMPHOCYTES # (MANUAL) 0.8 10^3/uL (1.5-3.5); LYMPHOCYTES % (MANUAL) 38 %; MONOCYTES # (MANUAL) 0.2 10^3/uL (0.0-1.0); PLATELET ESTIMATE, MANUAL NORMAL (130-450,000) (NORMAL); RBC MORPHOLOGY (MULTIPLE) NORMAL APPEARANCE (NORMAL)
== END 2021-11-23 23:59 ==
LOC: LAB 08:00
DX: E43 Unspecified severe protein-calorie malnutrition (principal)
CPT/HCPCS: 36415; 80053; 83735; 85025

== ENCOUNTER 2021-12-15 12:52 | Outpatient (CLI) | payer MEDICARE ==
--- NOTE | 2021-12-15 17:25 | CONSULTATION NOTE ---
Palliative Care Consultation - Referral Referring Provider: Dr. Guerrero / Primary Dr. Jose David Nobles Time of Visit: 11:00 60 minutes Referral setting: [facility] Referral Reason: Rectal CA/FTT/Goals of care - Information Sources Records reviewed: Previous records reviewed History/Review of Systems obtained from: Patient, Family (son Krzysztof present) Exam limitations: No limitations - History of Present Illness Brief History of Present Illness: This is a 76-year-old gentleman who presented in April 2021 with rectal bleeding, in the ED had a CT scan that showed rectal wall involvement. He had a colonoscopy with biopsy of the rectal tumor showing adenocarcinoma. He received M FOLFOX6 for 3 cycles, And unfortunately was admitted for complications for 5 weeks for respiratory distress, neutropenic colitis, SVT, and now is no longer a candidate for further FOLFOX. He did have a recent CT scan that continues to show segmental wall thickening and mild stranding of the distal ileum but it had improved from last scan 1121, thickening of the cecum in the short segmental thickening of the hepatic flexure of colon, as well as mild thickening of the rectosigmoid junction. He does not show further lymphadenopathy in abdomen or pelvis, and has had lung nodules they have been monitoring. They are looking at considering radiation with or without Xeloda, and oncology will be presenting him to our GI tumor board meeting to explore options.Patient had an extended stay at the local SNF, unfortunately it ended up private pay, they are currently being followed by [facility]. Patient has lost a lot of muscle mass, is quite weak and activity tolerance is improving though remains persistent. At this point in time his CEA is 9.0, so continue to follow with expected further treatment plan. Patient most persistent symptom is weight loss, currently is 151, son feels his baseline is most likely 175. They have been focusing on nutrition, but avoiding processed food. Patient reports alternating between diarrhea and constipation, has multiple different medications that are somewhat working against each other between loperamide, magnesium/maalox, potassium, and Questran. Patient also taking quite a few supplements that are on his list, will continue to try and tease out current regimen. Palliative care originally been asked to see patient when in SNF, defining goals of care, at this point in time patient is quite clear interested in treatment, recognizing the seriousness of his illness, does have DPOA set up with his son Krzysztof Rodriguez as well as a POLST that is full code/ full treatment. Medical/Surgical History - Past Medical History Cardiovascular: reports: None, Other (hx of SVT with last hospitalization) Respiratory: reports: None Neuro: None Endocrine/Autoimmune: reports: None GI: reports: GERD, GI bleed, Ulcers, Chronic diarrhea, Chronic constipation, Other (neutropenic colitis) : reports: Benign prostate hypertrophy HEENT: reports: Chronic vision loss Psych: reports: None Musculoskeletal: reports: Osteoarthritis Derm: reports: None MRSA Hx?: Yes - Past Surgical History General: reports: Cholecystectomy, Colonoscopy, Other - Substance History Use: Uses substance without health or social issues: NONE Social History - Living Situation Living arrangement: At home Living Situation: With family Support System: Patient lives at home, his son moved in with him when he was diagnosed with his colon cancer. He has been since , and raised 3 teenagers. 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 Family History - Family History Family History: Mother: (father 85), CAD, CVA/TIA (mother at 92), Father: , CAD, [place], Sister: Alive and Well (sister with ovarian CA/ brother with prostate CA), Brother: Alive and Well Medications/Allergies - Medications Home Medications: Ambulatory Orders Medication Instructions Recorded Confirmed Acetaminophen [Tylenol] 650 mg PO Q4HR PRN tablet 10/22/21 12/15/21 Ferrous Gluconate [Fergon] 324 mg PO DAILYWM #30 tablet 10/22/21 12/15/21 Lactobacillus Rhamnosus GG 1 cap PO DAILY #15 cap 10/22/21 12/15/21 [Culturelle] Loperamide [Imodium] 2 mg PO QID PRN #60 cap 10/22/21 12/15/21 Metoprolol Succinate [Toprol Xl] 6.25 mg PO DAILY #8 tablet 10/22/21 12/15/21 Multivitamin W/Minerals [Theragran 1 tab PO DAILYWM #30 tablet 10/22/21 12/15/21 M] Pantoprazole [Protonix] 40 mg PO BIDAC #60 tablet 10/22/21 12/15/21 Potassium Chloride Oral Soln 20 meq PO QDDINNER #30 units 10/22/21 12/15/21 [Potassium Chloride] Calcium Carbonate [Tums (Calcium 1,000 mg PO QID PRN 11/06/21 12/15/21 Carbonate 500mg)] Tamsulosin [Flomax] 0.8 mg PO DAILY 11/10/21 12/15/21 Cholecalciferol (Vitamin D3) 2,000 unit PO DAILY 12/15/21 12/15/21 [Vitamin D3] Cholestyramine [Questran] 4 gm PO DAILY PRN 12/15/21 12/15/21 Folic Acid 1 mg PO DAILY 12/15/21 12/15/21 [place] 1 tab PO DAILY 12/15/21 Zinc Gluconate [Zinc] 50 mg PO DAILY 12/15/21 12/15/21 glucosamine HCL [Glucosamine HCl] 1 tab PO DAILY 12/15/21 12/15/21 - Allergies Allergies/Adverse Reactions: Allergies Allergy/AdvReac Type Severity Reaction Status Date / Time No Known Drug Allergies Allergy Verified 11/10/21 14:10 Review of Systems - Constitutional Constitutional: reports: Fatigue (improving), Weakness, Weight loss (151 today; baseline about 175) - Eyes Eyes: reports: Vision loss, Corrective lenses - Ears, Nose & Throat Ears, Nose & Throat: reports: Dry mouth - Cardiovascular Cardiovascular: reports: Lightheadedness, Exertional dyspnea, Decr. exercise tolerance. denies: Palpitations, Chest pain - Respiratory Respiratory: reports: SOB with exertion. denies: SOB at rest - Gastrointestinal Gastrointestinal: reports: Constipation (alternating with diarrhea), Diarrhea, Bloating, Early satiety, Good appetite. denies: Abdominal pain, Nausea - Genitourinary Genitourinary: reports: Frequency, Nocturia - Musculoskeletal Musculoskeletal: reports: Stiffness, Muscle weakness - Integumentary Integumentary: reports: Dryness, Hair changes (alopecia) - Neurological Neurological: reports: General weakness, Numbness, Memory problems (mild) - Psychiatric Psychiatric: denies: Depression, Anxiety - Endocrine Endocrine: reports: Intolerance to cold - Hematologic/Lymphatic Hematologic/Lymph: reports: Anemia (10.1) - All Other Systems All Other Systems: reports: Reviewed and negative Physical Exam - Vital Signs Pulse Rate: 77 Respiratory Rate: 18 O2 Saturation: 100 Blood Pressure: 113/68 - Physical Exam General Appearance: positive: No acute distress, Alert, Cachetic Eyes Bilateral: positive: Normal inspection ENT: positive: No signs of dehydration Neck: positive: Trachea midline Respiratory: positive: No respiratory distress Abdomen: positive: Non-tender, Soft Skin: positive: Pallor, Dryness Extremities: positive: Full ROM, No pedal edema Neurologic/Psychiatric: positive: Oriented x3, Mood/affect nml Palliative Care - POLST Patient has POLST: Yes POLST Status: Full Code Pain: No pain Tiredness/Fatigue: Mild (1-3) Drowsiness/Sedation: None Nausea: None Anorexia: None Dyspnea: None Depression: None Anxiety: None Feelings of wellbeing/Perceived Quality of Life: Fair, Acceptable, Improved Sleep: Sleeps well Constipation: Intermittent constipation (problematic; alternates with constipation) Performance Status: Patient is continue to have weakness , is ambulating longer distances. Feels quite weak and from his baseline. He is working with physical therapy from [facility]. He is able to manage his own ADLs. - Palliative Care Discussion: Patient and son relate their story, of unfortunate events through the last few weeks. Has been complicated in the context of working with his insurance for coverage, particularly over the holidays and hospitalization. He has incurred a fairly high bill related to his SNF stay, and is quite frustrated by the system. In the context of goals of care, patient is wanting to move forward with treatment, is hoping for quantity of life, and currently perceives quality of life is improving. They were quite distressed with the POLST at SNF, son felt they "used it against him", as he did put full code/ full treatment. Patient does have document of DPOA with son Krzysztof Rodriguez [phone]. Results - Lab Results Lab results reviewed: Yes Impression and Recommendations - Palliative Care Impression: This is a 76-year-old gentleman who has had a series of unfortunate events, as he developed life-threatening side effects from his FOLFOX for his rectal carcinoma T3/N1. He is now starting to recover, still dealing with alternating diarrhea/constipation, improving strength, but continues with weight loss despite good appetite. He is awaiting final direction on next treatment plan, CEA is 9.0. Palliative care meeting with patient to establish rapport, evaluate symptom management, and provide anticipatory guidance. Recommendations/Counseling Done: 1. Weight loss. Patient denies anorexia, GERD, nausea, though does struggle with alternating diarrhea and constipation. In review, suspect patient needs to increase caloric intake, awaiting follow-up from dietitian. Counseling provided regarding encouraged smoothies/shakes, small frequent feedings, and adding things that have higher caloric intake. 2. Diarrhea alternating with constipation. Patient has been taking both meds both for constipation and diarrhea. Instructed at this point in time to take the Q UES TR AN only if diarrhea remains persistent, and not to take the loperamide on a scheduled basis but as needed. Patient on multiple supplements, reviewed medications to take on a regular basis. We will continue to reevaluate. 3. Anxiety. This is multifactorial, patient has had a difficult course, pending treatments of concern as well. Does have pending visit with Dr. Mejia and awaiting input from tumor board. In meantime is focusing on building strength and improving functional status 4. Advanced care planning. Patient does have DPOA, goals are stated to continue treatment, and improve underlying quality of life as well as quantity of life. Patient does have a POLST with full code/full treatment will continue to explore as treatment plan evolves. Patient is quite frail, at high risk for sequela of further rehospitalization or events.Palliative care meeting with patient and son to establish rapport, will continue to follow as needed for symptom management. 60 minutes review of chart, hospital stay, oncology notes, labs, scans [id number] with patient for counseling for symptom management anticipatory guidance and advanced care planning as well as setting rapport and role of palliative care
== END 2021-12-15 12:53 | disposition home or self-care (01) ==
LOC: PC 12:52
PROVIDERS: ATTEND Nurse Practitioner Adult Health
DX: Z51.5 Encounter for palliative care (principal); M62.81 Muscle weakness (generalized); R53.83 Other fatigue; R63.4 Abnormal weight loss; R68.81 Early satiety; R19.7 Diarrhea, unspecified; K59.00 Constipation, unspecified; F41.9 Anxiety disorder, unspecified; R06.09 Other forms of dyspnea; R91.8 Other nonspecific abnormal finding of lung field; C20 Malignant neoplasm of rectum; Z79.899 Other long term (current) drug therapy
CPT/HCPCS: 99344

== ENCOUNTER 2022-01-05 15:24 | Outpatient (CLI) | payer MEDICARE ==
--- NOTE | 2022-01-05 17:11 | CONSULTATION NOTE ---
Palliative Care Follow Up - Referral Referring Provider: Dr. Nobles Time of Visit: 1620 45 minutes Referral setting: [facility] [place] Referral Reason: Frailty/Rectal CA/Goals of care - Information Sources Records reviewed: Previous records reviewed History/Review of Systems obtained from: Patient, Family (son Krzysztof) Exam limitations: Clinical condition (mild STM) - History of Present Illness Update Brief HPI Update: Please see initial consult 12/15. This is a 76-year-old gentleman who has known rectal cancer, did receive 3 cycles of FOLFOX 6, unfortunately with severe complications including hospitalization for 5 weeks with respiratory distress, neutropenic colitis, SVT, and is having a slow recovery. He remains quite frail, he did have a recent CT scan that continues to show segmental wall thickening and mild stranding in the distal ileum but is improved from his last scan 10/11. Because patient is so frail, and reacted poorly, they are considering regional treatment. Patient will receive radiation x5 treatments, patient is quite apprehensive and worried regarding this. Patient and son have declined Xeloda with this, secondary to concerns of his "allergy" to chemotherapy. Patient does have an increase in his CEA to 9.0, very slow weight gain, they have been focusing on nutrition and increasing calories.Patient's most persistent symptoms has been rectal pressure, intermittent urgency, worsening constipation. He is working with both Metamucil and magnesium and trying to regulate both his bowels and cramping.He does have a lot of apprehension moving forward regarding outcomes of his treatment options, they will be meeting with surgery. He is hopeful for intervention secondary to poor quality of life in the context of his rectal discomfort and managing his bowels. Past Medical History: GERD, history of GI bleed, ulcers, chronic diarrhea, chronic constipation, histo ry of neutropenic colitis, BPH, chronic vision loss, osteoarthritis, chronic back pain. Social History - Living Situation Living arrangement: At home Living Situation: With family Support System: Patient lives at home, his son Krzysztof moved in with him when he is diagnosis of his colon cancer. He has been since 1993, and raised 3 teenagers. 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 Is been quite stressful, they also has a son with other health problems. They are concentrating on trying to keep their environment safe regarding decreasing risk of COVID exposure Medications/Allergies - Medications Home Medications: Ambulatory Orders Medication Instructions Recorded Confirmed Acetaminophen [Tylenol] 650 mg PO Q4HR PRN tablet 10/22/21 01/05/22 Ferrous Gluconate [Fergon] 324 mg PO DAILYWM #30 tablet 10/22/21 01/05/22 Lactobacillus Rhamnosus GG 1 cap PO DAILY #15 cap 10/22/21 01/05/22 [Culturelle] Loperamide [Imodium] 2 mg PO QID PRN #60 cap 10/22/21 01/05/22 Metoprolol Succinate [Toprol Xl] 6.25 mg PO DAILY #8 tablet 10/22/21 01/05/22 Multivitamin W/Minerals [Theragran 1 tab PO DAILYWM #30 tablet 10/22/21 01/05/22 M] Pantoprazole [Protonix] 40 mg PO BIDAC #60 tablet 10/22/21 01/05/22 Potassium Chloride Oral Soln 20 meq PO QDDINNER #30 units 10/22/21 01/05/22 [Potassium Chloride] Calcium Carbonate [Tums (Calcium 1,000 mg PO QID PRN 11/06/21 01/05/22 Carbonate 500mg)] Tamsulosin [Flomax] 0.8 mg PO DAILY 11/10/21 01/05/22 Cholecalciferol (Vitamin D3) 2,000 unit PO DAILY 12/15/21 01/05/22 [Vitamin D3] Cholestyramine [Questran] 4 gm PO DAILY PRN 12/15/21 01/05/22 Folic Acid 1 mg PO DAILY 12/15/21 01/05/22 Saw [place] 1 tab PO DAILY 12/15/21 01/05/22 Zinc Gluconate [Zinc] 50 mg PO DAILY 12/15/21 01/05/22 glucosamine HCL [Glucosamine HCl] 1 tab PO DAILY 12/15/21 01/05/22 - Allergies Allergies/Adverse Reactions: Allergies Allergy/AdvReac Type Severity Reaction Status Date / Time No Known Drug Allergies Allergy Verified 11/10/21 14:10 Review of Systems - Constitutional Constitutional: reports: Fatigue (persistsent), Weakness, Weight loss (153) - Eyes Eyes: reports: Vision loss, Corrective lenses - Ears, Nose & Throat Ears, Nose & Throat: reports: Dry mouth. denies: Mouth lesions - Cardiovascular Cardiovascular: reports: Lightheadedness, Exertional dyspnea, Decr. exercise tolerance - Respiratory Respiratory: reports: SOB with exertion. denies: SOB at rest - Gastrointestinal Gastrointestinal: reports: Constipation (more frequent than diarrhea), Rectal bleeding, Bloating, Poor appetite (persistent rectal pressure), Early satiety, Other (p). denies: Nausea - Genitourinary Genitourinary: reports: Frequency - Musculoskeletal Musculoskeletal: reports: Back pain (new acute pain; hx if recurrent), Stiffness, Muscle weakness, Assistive devices (recommended walker use) - Integumentary Integumentary: reports: Dryness - Neurological Neurological: reports: General weakness, Memory problems (STM intermittent), Abnormal gait (slow shuffled) - Psychiatric Psychiatric: reports: Depression, Anxiety (about pending radiation) - Endocrine Endocrine: reports: Intolerance to cold - Hematologic/Lymphatic Hematologic/Lymph: reports: Anemia. denies: Recurrent infections - All Other Systems All Other Systems: reports: Reviewed and negative Physical Exam - Vital Signs Temperature: 36.3 C Pulse Rate: 86 Respiratory Rate: 16 O2 Saturation: 99 Blood Pressure: 121/62 - Physical Exam General Appearance: positive: No acute distress, Alert, Anxious Eyes Bilateral: positive: Normal inspection ENT: positive: No signs of dehydration Neck: positive: Trachea midline Respiratory: positive: No respiratory distress Abdomen: positive: Soft, Tenderness Skin: positive: Pallor, Dryness Extremities: positive: Pedal edema (trace) Neurologic/Psychiatric: positive: Oriented x3, Mood/affect nml, Weakness, Flat affect Palliative Care - POLST Patient has POLST: No POLST Status: Full Code Pain: Location (new lower back pain; "tweaked" yesterday; hx of fluctuating back pain;), Severity (3/10) Tiredness/Fatigue: Moderate (4-6) Drowsiness/Sedation: Moderate (4-6) Nausea: None Anorexia: None Dyspnea: None Depression: None Anxiety: Moderate (4-6) Feelings of wellbeing/Perceived Quality of Life: Fair, Improved Sleep: Sleep improved Constipation: Yes, Unmanaged, Intermittent constipation Performance Status: Patient ambulatory, did recommend enlisting help of walker given his recent back pain and difficulty walking. He is quite weak with muscle wasting. They did discontinue home health physical therapy secondary to scheduling issues, son is walking him on a regular basis. He does have a home exercise program, though appears is not much invested in continuing at this time. Did discuss considering outpatient PT for further strengthening, patient would like to complete his next round of treatment before considering. - Palliative Care Discussion: Patient presents is quite apprehensive regarding his current quality of life, is hopeful that further treatment will improve his current issues around rectal dis comfort, urgency, and intermittent incontinence. He reports he rather have a colostomy then what is he experiencing currently. This does take quite a bit of a focus of his stay. They are quite distressed with out being able to have more information regarding the outcomes of current treatment plan, may still have a pending surgical consult. The patient is quite frail. The goal is to move forward with radiation, for 5 treatments of this most likely is going to exacerbate the problem. 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 Results - Lab Results Lab results reviewed: No Lab and Imaging Results: no labs this visit Impression and Recommendations - Palliative Care Impression: This is a 76-year-old gentleman with known rectal carcinoma T3/N1 awaiting next step in treatment plan. He remains quite frail, with muscle wasting, difficulty with nutrition, early satiety, and ongoing difficulties with constipation and abdominal cramping. He also has urgency, mild incontinence, and finds managing his bowels his most difficult quality of life issue. He continues to have persistent fatigue. He is going to be receiving radiation for 5 treatments, for local control. Patient also has consult pending with surgeon. Patient and son remain anxious regarding expected outcomes into the future. Palliative care continue to provide support, evaluate for symptom management and anticipatory guidance. Recommendations/Counseling Done: 1. Weight loss. Patient continues to be quite frail, he has had about a 2 pound weight gain. Is working very hard at pushing fluids, adding calories, but is discouraged at slow amount of weight gain. We did discuss in the context of this no further weight loss is a good goal as well, and expected weight gain would be slow. Patient denies anorexia, but may benefit from a short course of steroids to increase intake, feeling of wellbeing, and appetite. Will consider adding the future, await final information regarding pending treatment plan. 2. Constipation. Patient is having quite a bit of rectal discomfort and cramping, is using Metamucil to control diarrhea very few episodes recently. But does still have some urgency and intermittent hard stool. Reviewed bowel program with counseling regarding goal for soft regular bowel movement daily. Patient is now only using loperamide as needed. We will continue to monitor. Suspect may end up with increased diarrhea with radiation, encouraged to call if not controlled with loperamide can add Lomotil. 3. Anxiety. This is multifactorial, patient has had a difficult course, does have significant concerns regarding radiation. Tried to reassure in the context patient receiving 5 treatments only. Counseling provided to normalize concerns but try to refocus on what is in his control. Looking at managing his diet, continue to improve on working on his strengthening and endurance, as well as focusing on things that bring him more cristina and comfort. 4. Advanced care planning. Patient does have DPOA, goals at this point in time are to continue treatment, though patient is apprehensive about impact on quality of life. Patient does have a POLST with full code/full treatment will continue explore this as treatment plan of falls as he is quite frail and has high risk for sequela of further rehospitalization or events. Palliative care meeting with patient and son takes tablets rapport, and provide support as needed for symptom management. We will minutes review of oncology notes, labs, CT scans, radiation oncology notes, [id number] with patient for anticipatory guidance, focus on symptom management, and psychosocial support
== END 2022-01-05 15:25 | disposition home or self-care (01) ==
LOC: PC 15:24
PROVIDERS: ATTEND Nurse Practitioner Adult Health
DX: Z51.5 Encounter for palliative care (principal); R63.4 Abnormal weight loss; K59.00 Constipation, unspecified; F41.9 Anxiety disorder, unspecified
CPT/HCPCS: 99215

== ENCOUNTER 2022-02-02 08:21 | Emergency (ER) | payer MEDICARE ==
--- OUTSIDE RECORDS SUMMARY | 2022-02-02 09:04 | EXTERNAL MEDICAL SUMMARY RPT | Continuity of Care Document ---
:1945 Author Organization [facility] Address [address] [phone] Phone Allergies No information. Encounters No information. Medications No information. Problems date description facility [id number] Edema, unspecified [employer] [employer] Results No information.
[2022-02-02] MEDS ORDERED: SODIUM CHLORIDE 0.9% 500 ML IV STA (09:07)
--- NOTE | 2022-02-02 09:09 | ED Physician Documentation ---
PD HPI GI BLEED - Stated complaint Stated Complaint: BLOOD IN STOOL - Chief complaint Chief Complaint: Abd Pain - History obtained from History obtained from: Patient - History of Present Illness Timing - onset: Today Timing - duration: Hours Timing - details: Abrupt onset, Still present Associated symptoms: BRBPR Contributing factors: Other (recent radiation therapy) Improved by: Laying still Similar symptoms before: Diagnosis (colorectal CA and hemorroids) Recently seen: Other - Additional information Additional information: 76-year-old male who is undergoing treatment for colorectal cancer has recently had a 5 cycle radiation therapy 1 week ago. Today he has developed rectal bleeding. He is feeling weak but denies shortness of breath or lightheadedness. Review of Systems Constitutional: denies: Fever Eyes: denies: Decreased vision Ears: denies: Ear pain Nose: denies: Congestion Throat: denies: Sore throat Cardiac: denies: Chest pain / pressure Respiratory: denies: Dyspnea, Cough GI: reports: Diarrhea, Bloody / black stool. denies: Abdominal Pain, Nausea, Vomiting : denies: Dysuria, Frequency Skin: denies: Rash Musculoskeletal: denies: Neck pain, Back pain, Extremity pain Neurologic: reports: Generalized weakness. denies: Focal weakness, Numbness PD PAST MEDICAL HISTORY - Past Medical History Cardiovascular: None Respiratory: None Neuro: None Endocrine/Autoimmune: None GI: GERD, GI bleed, Ulcers, Other : None HEENT: Chronic vision loss Psych: None Musculoskeletal: Osteoarthritis Derm: None - Past Surgical History Past Surgical History: Yes General: Cholecystectomy, Colonoscopy, Other - Present Medications Home Medications: Ambulatory Orders Medication Instructions Recorded Confirmed Acetaminophen [Tylenol] 650 mg PO Q4HR PRN tablet 10/22/21 01/05/22 Ferrous Gluconate [Fergon] 324 mg PO DAILYWM #30 tablet 10/22/21 01/05/22 Lactobacillus Rhamnosus GG 1 cap PO DAILY #15 cap 10/22/21 01/05/22 [Culturelle] Loperamide [Imodium] 2 mg PO QID PRN #60 cap 10/22/21 01/05/22 Metoprolol Succinate [Toprol Xl] 6.25 mg PO DAILY #8 tablet 10/22/21 01/05/22 Multivitamin W/Minerals [Theragran 1 tab PO DAILYWM #30 tablet 10/22/21 01/05/22 M] Pantoprazole [Protonix] 40 mg PO BIDAC #60 tablet 10/22/21 01/05/22 Potassium Chloride Oral Soln 20 meq PO QDDINNER #30 units 10/22/21 01/05/22 [Potassium Chloride] Calcium Carbonate [Tums (Calcium 1,000 mg PO QID PRN 11/06/21 01/05/22 Carbonate 500mg)] Tamsulosin [Flomax] 0.8 mg PO DAILY 11/10/21 01/05/22 Cholecalciferol (Vitamin D3) 2,000 unit PO DAILY 12/15/21 01/05/22 [Vitamin D3] Cholestyramine [Questran] 4 gm PO DAILY PRN 12/15/21 01/05/22 Folic Acid 1 mg PO DAILY 12/15/21 01/05/22 Saw [place] 1 tab PO DAILY 12/15/21 01/05/22 Zinc Gluconate [Zinc] 50 mg PO DAILY 12/15/21 01/05/22 glucosamine HCL [Glucosamine HCl] 1 tab PO DAILY 12/15/21 01/05/22 - Allergies Allergies/Adverse Reactions: Allergies Allergy/AdvReac Type Severity Reaction Status Date / Time No Known Drug Allergies Allergy Verified 02/02/22 08:38 - Social History Does the pt smoke?: No Smoking Status: Never smoker Does the pt drink ETOH?: No Does the pt have substance abuse?: No - Immunizations Immunizations are current?: Yes Immunizations: TDAP >10years/unknown - POLST Patient has POLST: No POLST Status: Full Code PD ED PE NORMAL - Vitals Vital signs reviewed: Yes (wide pulse pressure) - General General: Alert and oriented X 3, No acute distress, Well developed/nourished - HEENT HEENT: Atraumatic, PERRL, EOMI - Cardiac Cardiac: RRR, No murmur - Respiratory Respiratory: No respiratory distress, Clear bilaterally - Abdomen Abdomen: Normal bowel sounds, Soft, Non tender, Non distended, No organomegaly - Back Back: No CVA TTP, No spinal TTP - Derm Derm: Normal color, Warm and dry, No rash - Extremities Extremities: No deformity, Normal ROM s pain, No edema - Neuro Neuro: Alert and oriented X 3, 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, No motor deficit, No sensory deficit, Normal speech Eye Opening: Spontaneous Motor: Obeys Commands Verbal: Oriented GCS Score: 15 - Psych Psych: Normal mood, Normal affect Results - Vitals Vitals: Vital Signs - 24 hr 02/02/22 02/02/22 08:25 10:40 Temperature 37.0 C Heart Rate 80 81 Respiratory 20 16 Rate Blood Pressure 131/61 H 123/64 O2 Saturation 100 100 Oxygen O2 Source Room air - Labs Labs: Laboratory Tests 02/02/22 02/02/22 02/02/22 09:33 09:33 09:35 WBC 4.2 L RBC 3.67 L Hgb 12.0 L Hct 36.3 L MCV 98.9 H MCH 32.7 H MCHC 33.1 RDW 13.8 Plt Count 166 MPV 10.0 Neut # (Auto) 2.8 Lymph # (Auto) 0.5 L Dickey # (Auto) 0.4 Eos # (Auto) 0.4 Baso # (Auto) 0.0 Absolute Nucleated RBC 0.00 Nucleated RBC % 0.0 Sodium 136 Potassium 3.9 Chloride 104 Carbon Dioxide 24 Anion Gap 8.0 BUN 17 Creatinine 0.8 Estimated GFR (MDRD) 94 Glucose 97 Calcium 9.1 Total Bilirubin 0.8 AST 24 ALT 12 Alkaline Phosphatase 86 Total Protein 7.1 Albumin 3.3 Globulin 3.8 Albumin/Globulin Ratio 0.9 L Lipase 21 L Blood Type A POSITIVE Blood Type Recheck Antibody Screen NEGATIVE 02/02/22 11:03 WBC RBC Hgb Hct MCV MCH MCHC RDW Plt Count MPV Neut # (Auto) Lymph # (Auto) Dickey # (Auto) Eos # (Auto) Baso # (Auto) Absolute Nucleated RBC Nucleated RBC % Sodium Potassium Chloride Carbon Dioxide Anion Gap BUN Creatinine Estimated GFR (MDRD) Glucose Calcium Total Bilirubin AST ALT Alkaline Phosphatase Total Protein Albumin Globulin Albumin/Globulin Ratio Lipase Blood Type Blood Type Recheck A POSITIVE Antibody Screen Procedures - IVC sono (time) 0900 Bedside IVC sono: IVC measures (cm) (1.21), Dehydration (est 1 liter deficit) PD MEDICAL DECISION MAKING - ED course Complexity details: reviewed old records, reviewed results, re-evaluated patient, considered differential, d/w patient, d/w [employer] consultant (Dr. Mejia radiation oncology recommends close observation and repeat counts. Bleeding could go on for a month or more ) ED course: 76-year-old male with a history of colorectal cancer who has had a recent radiation treatment has developed some bleeding per rectum. He is not symptomatic with this with the exception of some mild fatigue. He is evaluated here his blood counts are stable in fact they are better than what they were the last time they were measured and he is on iron supplementation. He does not require transfusion today. I discussed the case with his radiation oncologist Dr. Mejia who recommends close observation with repeat counts for excessive bleeding or symptoms. I discussed this with the patient specifically reasons to come back to the emergency department and reasons to call his primary care doctor to get his blood counts checked. Departure - Departure Disposition: Home, Self Care Clinical Impression: GI bleeding Qualifiers: GI bleed type/associated pathology: anorectal hemorrhage Qualified Code(s): K62.5 - Hemorrhage of anus and rectum Condition: Stable Instructions: ED Hematochezia Stable Follow-Up: Jose David Nobles MD [Primary Care Provider] - Comments: Maikel, today your hematocrit is 36.4. This is close to the normal range. It is higher than what you have had recently. This blood count should be followed closely over the next several weeks. If you develop symptoms such as shortness of breath or feeling near syncope or feeling like you need to faint follow-up here in the emergency department. If you are feeling fatigued and have continued bleeding call your doctor and have your blood counts rechecked. I talked to Dr. Mejia today and he indicates that this could last as long as a month on and off and of course the biggest concern is excessive blood loss.
[2022-02-02 09:44] LABS: BASOPHILS % (AUTO) 0.2 %; EOSINOPHILS # (AUTO) 0.4 10^3/uL (0.0-0.7); EOSINOPHILS % (AUTO) 10.5 %; HCT - HEMATOCRIT 36.3 % (42.0-52.0); LYMPHOCYTES # (AUTO) 0.5 10^3/uL (1.5-3.5); LYMPHOCYTES % (AUTO) 11.2 %; MEAN CORPUSCULAR HEMOGLOBIN 32.7 pg (27.0-31.0); MEAN CORPUSCULAR HGB CONC 33.1 g/dL (32.0-36.0); MEAN CORPUSCULAR VOLUME 98.9 fL (80.0-94.0); MONOCYTES # (AUTO) 0.4 10^3/uL (0.0-1.0); MONOCYTES % (AUTO) 9.8 %; NEUTROPHILS # (AUTO) 2.8 10^3/uL (1.5-6.6); NEUTROPHILS % (AUTO) 67.8 %; PLT - PLATELET COUNT 166 10^3/uL (130-450); RED BLOOD COUNT 3.67 10^6/uL (4.70-6.10); RED CELL DISTRIBUTION WIDTH 13.8 % (12.0-15.0); WHITE BLOOD COUNT 4.2 x10^3/uL (4.8-10.8)
[2022-02-02 10:00] LABS: ALBUMIN 3.3 g/dL (3.2-5.5); ALBUMIN/GLOBULIN RATIO 0.9 (1.0-2.2); BILIRUBIN,TOTAL 0.8 mg/dL (0.2-1.0); CALCIUM 9.1 mg/dL (8.5-10.3); CREATININE 0.8 mg/dL (0.6-1.2); POTASSIUM 3.9 mmol/L (3.5-5.0); TOTAL PROTEIN 7.1 g/dL (6.7-8.2)
[2022-02-02 11:57] LABS: BILIRUBIN,URINE NEGATIVE (NEGATIVE); GLUCOSE, URINE (UA) NEGATIVE (NEGATIVE); KETONES,URINE (UA) 15 mg/dL (NEGATIVE); LEUKOCYTE ESTERASE, URINE NEGATIVE (NEGATIVE); NITRITE,URINE NEGATIVE (NEGATIVE); OCCULT BLOOD,URINE TRACE-LYSE (NEGATIVE); PH,URINE 5.5 PH (5.0-7.5); PROTEIN,URINE NEGATIVE (NEGATIVE); UROBILINOGEN,URINE 0.2 (NORMAL) E.U./dL (NORMAL)
[2022-02-02 11:59] LABS: CLARITY,URINE CLEAR (CLEAR)
[2022-02-02 12:03] VITALS: BP 130/65
== END 2022-02-02 12:06 | disposition home or self-care (01) ==
LOC: ED 08:21
DX: K62.5 Hemorrhage of anus and rectum (principal)
CPT/HCPCS: 36415; 80053; 81001; 81003; 83690; 85025; 86850; 86900; 86901; 87086; 99283

== ENCOUNTER 2022-02-04 15:45 | Outpatient (CLI) | payer MEDICARE ==
--- NOTE | 2022-02-04 19:56 | CONSULTATION NOTE ---
Palliative Care Follow Up - Referral Referring Provider: Dr. Jose David Nobles Time of Visit: [id number] Referral setting: Home Referral Reason: Diarrhea/Rectal Pain/Rectal CA - Information Sources Records reviewed: Previous records reviewed History/Review of Systems obtained from: Patient, Family (Jaun son) Exam limitations: Clinical condition (feeling poorly) - History of Present Illness Update Brief HPI Update: This is a 76-year-old gentleman who has known rectal cancer, did receive 3 cycles of FOLFOX 6, with severe complications including hospitalization for 5 weeks with respiratory distress, neutropenic colitis, SVT and continues to have slow recovery. He remains quite frail, did show on recent CT scan segmental wall thickening and mild stranding in the distal ileum but had improved from his last scan 10/11. Patient is not going to receive chemotherapy but received regional treatment, has completed radiation x5 treatments as of last Tuesday, this has been very difficult with the last week, with severe diarrhea, rectal pain, and severe abdominal cramping. Patient has been using Imodium but only 4 tabs a day, though still continues with multiple watery stools daily complains of rectal pain and pressure, and was in the emergency room with bright red blood on 02/02. Patient though does admit to have taking ibuprofen at the time because of his worsening pain. His hemoglobin was 12.0 at that time. Patient has continued to feel quite miserable, he is supposedly to get a bowel resection in less than a month, but we did discuss given his frail status may need longer to recover. Patient is also having some urethral "swelling" has been using [place], does have prescription for Flomax but has not been renewed new since his stay at the group home. They have been trying to minimize fiber, but also focus on high potassium food which is quite complicated. Patient denies nausea, but is feeling quite poorly. He does appear quite thin, reports he is at 153. Reports he can sit up to 3 hours on the commode. Past Medical History: GERD. History of GI bleed, ulcers, chronic diarrhea, chronic constipation, history of neutropenic colitis, BPH, chronic vision loss, osteoarthritis, chronic back pain Social History - Living Situation Living arrangement: At home Living Situation: With family Support System: Patient lives at home with his 2 sons, they are in various stages of remodeling, has been difficult with patient's illness. Jaun his son is providing ongoing support and advocating for medical needs.Had moved in with his dad with his di agnosis of colon cancer. Patient has been since 1993 and raised 3 teenagers. 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 Medications/Allergies - Medications Home Medications: Ambulatory Orders Medication Instructions Recorded Confirmed Acetaminophen [Tylenol] 650 mg PO Q4HR PRN tablet 10/22/21 02/04/22 Ferrous Gluconate [Fergon] 324 mg PO DAILYWM #30 tablet 10/22/21 02/04/22 Lactobacillus Rhamnosus GG 1 cap PO DAILY #15 cap 10/22/21 02/04/22 [Culturelle] Loperamide [Imodium] 2 mg PO QID PRN #60 cap 10/22/21 02/04/22 Multivitamin W/Minerals [Theragran 1 tab PO DAILYWM #30 tablet 10/22/21 02/04/22 M] Pantoprazole [Protonix] 40 mg PO BIDAC #60 tablet 10/22/21 02/04/22 Potassium Chloride Oral Soln 20 meq PO QDDINNER #30 units 10/22/21 02/04/22 [Potassium Chloride] Tamsulosin [Flomax] 0.8 mg PO DAILY 11/10/21 02/04/22 Cholecalciferol (Vitamin D3) 2,000 unit PO DAILY 12/15/21 02/04/22 [Vitamin D3] Folic Acid 1 mg PO DAILY 12/15/21 02/04/22 Zinc Gluconate [Zinc] 50 mg PO DAILY 12/15/21 02/04/22 Diphenoxylate/Atropine [Lomotil] 1 tab PO Q4HR PRN 02/04/22 02/04/22 HYDROcod/ACETAM 5/325 [Hurley 5/325] 1 tab PO Q4HR PRN 02/04/22 02/04/22 Hyoscyamine [Levsin] 0.125 mg PO Q4HR PRN 02/04/22 02/04/22 - Allergies Allergies/Adverse Reactions: Allergies Allergy/AdvReac Type Severity Reaction Status Date / Time No Known Drug Allergies Allergy Verified 02/02/22 08:38 Review of Systems - Constitutional Constitutional: reports: Fatigue (worsening and exhausing since radiation), Weakness, Weight loss (153) - Eyes Eyes: reports: Vision loss, Corrective lenses - Ears, Nose & Throat Ears, Nose & Throat: reports: Dry mouth. denies: Mouth lesions - Cardiovascular Cardiovascular: reports: Lightheadedness, Exertional dyspnea, Decr. exercise tolerance. denies: Irregular heart rate, Palpitations, Chest pain, Edema - Respiratory Respiratory: reports: SOB with exertion. denies: SOB at rest - Gastrointestinal Gastrointestinal: reports: Diarrhea (worsening since radiation), Rectal bleeding (currently with light pink drainage only), Bloating, Poor appetite (persistent rectal pressure), Early satiety. denies: Nausea - Genitourinary Genitourinary: reports: Frequency, Other (difficulty with stream) - Musculoskeletal Musculoskeletal: reports: Back pain (new acute pain; hx if recurrent), Stiffness, Muscle weakness, Assistive devices (recommended walker use) - Integumentary Integumentary: reports: Dryness - Neurological Neurological: reports: General weakness, Memory problems (STM intermittent), Abnormal gait (slow shuffled) - Psychiatric Psychiatric: reports: Depression, Anxiety (about pending radiation) - Endocrine Endocrine: reports: Intolerance to cold - Hematologic/Lymphatic Hematologic/Lymph: reports: Anemia. denies: Recurrent infections - All Other Systems All Other Systems: reports: Reviewed and negative Physical Exam - Vital Signs Temperature: 97.4 C Pulse Rate: 88 Respiratory Rate: 16 O2 Saturation: 98 Blood Pressure: 112/64 - Physical Exam General Appearance: positive: Alert, Moderate distress (with abdominal cramping and ongoing diarrhea), Anxious, Cachetic Eyes Bilateral: positive: Normal inspection ENT: negative: No signs of dehydration Neck: positive: Trachea midline Respiratory: positive: No respiratory distress Abdomen: positive: Soft, Tenderness Skin: positive: Pallor, Dryness Extremities: positive: Other (weak) Neurologic/Psychiatric: positive: Oriented x3, Weakness, Depressed mood/affect, Flat affect Palliative Care - POLST Patient has POLST: No POLST Status: Full Code Pain: Pain worsening, Location (abdominal cramping; rectal pain and pressure), Severity (8/10) Tiredness/Fatigue: Severe (7-10) Drowsiness/Sedation: Mild (1-3) Nausea: None Anorexia: Moderate (4-6), Weight loss Dyspnea: Mild (1-3) Depression: Mild (1-3) Anxiety: Severe (7-10) Feelings of wellbeing/Perceived Quality of Life: Poor, Worsening Sleep: Sleeps poorly Constipation: No Performance Status: Patient appears gaunt and weak, gait is shuffled. Patient is having severe cramps, reports spends significant amount of time sitting on the toilet. Does appear somewhat shaky and tremulous. With obvious muscle wasting. Patient fiercely independent, is needing to pace himself for any kind of ADLs. - Palliative Care Discussion: Patient is quite discouraged, wondering about his recovery and what further to expect. Reviewed patient's radiation is for local control, curative or more curative intent would need follow-up surgery. Patient is quite frail, concerned about further complications given his frailty. Patient continues with high symptom burden previous to radiation, this is exacerbated his diarrhea, anorexia, and weight loss. Patient's goals are to survive this, and continue to improve to be able to help his sons restore the house prior to selling. There has been discussions prior to this regarding CODE STATUS, there seems to been some misunderstanding in his transition to the SNF. Will revisit this at a later date when symptoms better controlled. Results - Lab Results Lab results reviewed: Yes Impression and Recommendations - Palliative Care Impression: This is a 76-year-old gentleman with known rectal cancer T3/N1 awaiting recovery from radiation to proceed with surgery. He remains quite frail, having acute aftereffects with intermittent rectal bleeding, increased diarrhea and abdominal cramping, rectal pain and pressure as well as worsening cachexia. Patient and son remain anxious regarding expected outcomes in the future. Palliative care continue to provide support, addressing symptom management needs today and anticipatory guidance. Recommendations/Counseling Done: 1. Diarrhea secondary to her radiation. Patient does have a history of neutropenic colitis, concern for patient's history of GI bleeding and rectal bleeding most recently 02/02. Reports now just passing pink light-colored drainage mixed with his diarrhea. Reports is watery mixed with hard stool. Patient has only been using Imodium 2 tabs twice daily, discussed needed to find balance as far as no more than 2 stools in 24 hours. We will go ahead and order Lomotil, instructed to use Imodium alternating with Lomotil every 4 hours and titrate to effect. Patient verbalized understanding. 2. Abdominal cramping. Will order Hyoscyamine 0.125 mg for pain and discomfort, instructed to start with lower dose. Viewed this is for abdominal cramping pain, does have side effect of dry mouth, will need to monitor for side effects but should help defined as an "antispasmodic". Verbalized understanding.Viewed this is for abdominal cramping pain, does have side effect of dry mouth, will need to monitor for side effects but should help defined as an "antispasmodic". Verbalized understanding. 3. Rectal pain. Patient has rectal pain and pressure, that is significant, not responding to his current acetaminophen. Patient is worried "about being addicted". Did order hydrocodone 5 mg / 325 mg of acetaminophen, instructed to start with half tab particular at bedtime is not cannot sleep because of the rectal pain and discomfort. Discussed this will also help with slowing down his bowels, verbalized understanding as part of his toolbox. 4. GI bleeding. This is reviewed in ED report, had spoken with radiation oncology, most likely have intermittent bleeding for up to 4 weeks. Was recommended to have follow-up labs, patient does not describe a significant amount of bleeding. Nor does present with symptoms of worsening anemia. We will go ahead and order labs at [facility] next week, as patient does need to have port flushed as well. We will also monitor potassium, as patient has had ongoing diarrhea, history of hypokalemia, and is only taking 20 mEq daily. 5. Anxiety. This is multifactorial, patient has had a difficult course, has had multiple concerns regarding his treatment and pending surgery. They have not had follow-up from the surgeon. Recommended they would not be scheduling surgery without an evaluation first, recommended to make appoint with Dr. Freedman. Patient is quite frail, may need further time to recover, as continues with weight loss. 6. Weight loss. Patient is on a low fiber diet, has been instructed to avoid dairy products. We discussed this can be added back slowly once diarrhea resolves solves. Recommended small frequent feedings, continue with his fluids, cooked and soft canned fruits. Patient may benefit further follow-up with dietitian, will see if can meet when he is up at [facility]. 7. Advanced care planning. Patient does have DPOA, goals at this time are to continue treatment the patient is apprehensive again regarding quality of life. Patient has a POLST with full code full treatment will continue explore this as he is quite frail high risk for hospitalizations and complications from his treatment. Particular moving forward into his surgery. Will follow up with patient by phone next week, labs drawn, as well as home visit in 2 weeks we will readdress goals of care at that time. 60 minutes with greater than 50% of this done in counseling 60 minutes was given 50% of this done in counseling regarding symptom management, Rx provided for medications, review of current medication use, anticipatory guidance provided, follow-up for labs and MAC arranged for next week.
== END 2022-02-04 15:46 | disposition home or self-care (01) ==
LOC: PC 15:45
PROVIDERS: ATTEND Nurse Practitioner Adult Health
DX: Z51.5 Encounter for palliative care (principal); G89.3 Neoplasm related pain (acute) (chronic); R53.83 Other fatigue; R53.1 Weakness; K62.89 Other specified diseases of anus and rectum; R10.9 Unspecified abdominal pain; R63.4 Abnormal weight loss; K52.0 Gastroenteritis and colitis due to radiation; K92.1 Melena; Y84.2 Radiological procedure and radiotherapy as the cause of abnormal reaction of the patient, or of later complication, without mention of misadventure at the time of the procedure; F41.9 Anxiety disorder, unspecified; C20 Malignant neoplasm of rectum; Z92.21 Personal history of antineoplastic chemotherapy; Z92.3 Personal history of irradiation; R63.0 Anorexia; R68.81 Early satiety
CPT/HCPCS: 99350

== ENCOUNTER 2022-02-09 13:52 | Outpatient (CLI) | payer MEDICARE ==
--- NOTE | 2022-02-09 15:54 | CONSULTATION NOTE ---
Palliative Care Follow Up - Referral Referring Provider: Dr. Jose David Nobles Time of Visit: 1400 45 min Referral setting: [facility] Referral Reason: Diarrhea/Abd pain/Rectal CA - Information Sources Records reviewed: Previous records reviewed History/Review of Systems obtained from: Patient, Family (son Jaun) Exam limitations: Clinical condition (patient with anxiety) - History of Present Illness Update Brief HPI Update: This is a 76-year-old gentleman who has known rectal cancer, received 3 cycles of FOLFOX 6 with severe complications including hospitalization for 5 weeks with respiratory distress, neutropenic colitis, SVT and has continued to have slow recovery. He remains quite frail, he has received 5 radiation treatments, and is finally starting to have some improvement. We did initiate high Cosamin on our 02/04/2022 visit reports cramping is better, was not having much luck with Lomotil though in addition to the Imodium for his diarrhea, he is now just using Imodium, up to 16 mg with good results. He is still passing large chunks of stool mixed with watery, but is finding the frequency and the amount is decreasing. He is starting to progress his diet, still continues with rectal pressure, and some perirectal irritation. On exam is just reddened and no open areas or desquamation. He is sleeping better, he reports he is voiding very well with the Flomax, he is taking adequate fluids when asked if needed a IV hydration today. His weight is down a few pounds at 150.4 this is fully clothed. He has been spending less time sitting on the "commode". He is very anxious about pending surgery, and fluctuates as far as mood and discomfort. Past Medical History: GERD, history of GI bleed, history of ulcers, chronic diarrhea alternating with chronic constipation, history of neutropenic colitis, BPH, chronic vision loss, osteoarthritis, chronic back pain Social History - Living Situation Living arrangement: At home Living Situation: With family Support System: Patient lives in his own home with his 2 sons. They are in various stages of remodeling it has been difficult with patient's hospitalizations and illness. Jaun his son, is providing ongoing support and advocating for medical needs. He has moved in with his dad with the diagnosis of colon cancer. 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 Medications/Allergies - Medications Home Medications: Ambulatory Orders Medication Instructions Recorded Confirmed Acetaminophen [Tylenol] 650 mg PO Q4HR PRN tablet 10/22/21 02/04/22 Ferrous Gluconate [Fergon] 324 mg PO DAILYWM #30 tablet 10/22/21 02/04/22 Lactobacillus Rhamnosus GG 1 cap PO DAILY #15 cap 10/22/21 02/04/22 [Culturelle] Loperamide [Imodium] 2 mg PO QID PRN #60 cap 10/22/21 02/04/22 Multivitamin W/Minerals [Theragran 1 tab PO DAILYWM #30 tablet 10/22/21 02/04/22 M] Pantoprazole [Protonix] 40 mg PO BIDAC #60 tablet 10/22/21 02/04/22 Potassium Chloride Oral Soln 20 meq PO QDDINNER #30 units 10/22/21 02/04/22 [Potassium Chloride] Tamsulosin [Flomax] 0.8 mg PO DAILY 11/10/21 02/04/22 Cholecalciferol (Vitamin D3) 2,000 unit PO DAILY 12/15/21 02/04/22 [Vitamin D3] Folic Acid 1 mg PO DAILY 12/15/21 02/04/22 Zinc Gluconate [Zinc] 50 mg PO DAILY 12/15/21 02/04/22 Diphenoxylate/Atropine [Lomotil] 1 tab PO Q4HR PRN 02/04/22 02/04/22 HYDROcod/ACETAM 5/325 [Carmichaels 5/325] 1 tab PO Q4HR PRN 02/04/22 02/04/22 Hyoscyamine [Levsin] 0.125 mg PO Q4HR PRN 02/04/22 02/04/22 - Allergies Allergies/Adverse Reactions: Allergies Allergy/AdvReac Type Severity Reaction Status Date / Time No Known Drug Allergies Allergy Verified 02/02/22 08:38 Review of Systems - Constitutional Constitutional: reports: Fatigue (improving), Weakness, Weight loss (150.4) - Eyes Eyes: reports: Vision loss, Corrective lenses - Ears, Nose & Throat Ears, Nose & Throat: reports: Dry mouth. denies: Mouth lesions - Cardiovascular Cardiovascular: reports: Lightheadedness, Exertional dyspnea, Decr. exercise tolerance. denies: Irregular heart rate, Palpitations, Chest pain, Edema - Respiratory Respiratory: reports: SOB with exertion. denies: SOB at rest - Gastrointestinal Gastrointestinal: reports: Diarrhea (improving with more aggressive use of immodium and time; lomotil not perceived as effective), Bloating, Poor appetite (persistent rectal pressure), Early satiety. denies: Rectal bleeding (none noted today), Nausea - Genitourinary Genitourinary: reports: Frequency, Other (stream improved; voiding without difficulty, pleased) - Musculoskeletal Musculoskeletal: reports: Back pain (new acute pain; hx if recurrent), Stiffness, Muscle weakness, Assistive devices (recommended walker use) - Integumentary Integumentary: reports: Dryness, Other (perirectal tenderness) - Neurological Neurological: reports: General weakness, Memory problems (STM intermittent), Abnormal gait (slow shuffled noted perioheral neuropathy affecting balance; not painful) - Psychiatric Psychiatric: reports: Depression, Anxiety - Endocrine Endocrine: reports: Intolerance to cold - Hematologic/Lymphatic Hematologic/Lymph: reports: Anemia (11.4 no further signs of bleeding or blood loss). denies: Recurrent infections - All Other Systems All Other Systems: reports: Reviewed and negative Physical Exam - Vital Signs Pulse Rate: 97 Respiratory Rate: 18 O2 Saturation: 97 (ra @ rest) Blood Pressure: 119/65 - Physical Exam General Appearance: positive: Alert, Mild distress (improved symptoms; though perserverative), Anxious, Cachetic Eyes Bilateral: positive: Normal inspection ENT: negative: No signs of dehydration Neck: positive: Trachea midline Cardiovascular: positive: Tachycardia Respiratory: positive: No respiratory distress, Breath sounds nml Abdomen: positive: Soft, Tenderness Skin: positive: Pallor, Dryness, Other (perirectal redness; no desquamation) Extremities: positive: No pedal edema Neurologic/Psychiatric: positive: Oriented x3, Weakness, Depressed mood/affect, Flat affect Palliative Care - POLST Patient has POLST: No POLST Status: Full Code Pain: Pain worsening (reports arthritic pain and stiffness in hand most problematic), Pain improved (abdominal cramping pain; using hyoscaymine with good outcome, not needing vicodin or APAP) Tiredness/Fatigue: Moderate (4-6) Drowsiness/Sedation: Mild (1-3) Nausea: None Anorexia: Mild (1-3) Dyspnea: None Depression: None Anxiety: Moderate (4-6) Feelings of wellbeing/Perceived Quality of Life: Fair, Worsening Constipation: No, Unmanaged Performance Status: Patient continues to have lingering PTSD regarding his last few months and negative healthcare experiences. He is starting to feel little bit better, but is getting anxiety about pending surgery, his current frailty, and his current level of functioning. It is hard for him to put all the pieces together, though did recommend that they get an appointment with the surgeon, they do have a pending appointment with Dr. Benavides. Patient reflective of his cancer, as a wild beast, his goal is to return to previous level of functioning before the radiation. He was starting be able to go out and have more enjoyable activities. Son is hoping that they will give him time to recover, this will be of course be balanced with the need to proceed with surgery so to decrease chances of recurrent disease. Patient has many things he still wants to do yet, though does acknowledge his frailty and concerns for ongoing decline. It is important for him to remain are to regain some of his independence. Results - Lab Results Lab results reviewed: Yes Impression and Recommendations - Palliative Care Impression: This is a 76-year-old gentleman with known rectal cancer T3N1, starting to recover from radiation with the goal to proceed to surgery. He remains quite frail, abdominal cramping in improved on medication, diarrhea is slowing down, but still having significant amount of rectal pressure and challenged to meet adequate calorie needs. Patient and son remain anxious regarding expected outcomes in the future. Labs drawn today with no further signs of acute bleeding, and potassium in normal range. Palliative care continue provide support, address and symptom management and anticipatory guidance Recommendations/Counseling Done: 1. Diarrhea secondary to radiation. Patient does have a history of neutropenic colitis, reports no further signs or symptoms of bleeding. Labs do not show any acute symptoms of bleeding. Still having some hard stool mixed with watery s tool, though decreased in frequency and amount. Patient had tried Lomotil without any perceived success, did increase Imodium feels like at the higher dose is doing better. Counseling provided to find balance with daily stool 1-2 x and goal for soft consistency. 2. Abdominal cramping. Patient is responding a hyoscyamine 0.125 mg using about 4 times a day.Patient counseled to continue to decrease as tolerated, but is pleased that it is decreasing his abdominal pain. 3. Rectal pain. Patient continues with rectal pain and pressure, though this is easing up. He has been able to manage with just acetaminophen in addition to his hyoscamine for cramping. He is having some pain at perirectal site, encouraged again to use baby wipes versus tissues did examine, does have some perirectal tenderness, irritated skin tags from previous hemmorhoidectomy and instructed use some A&E ointment to keep it protected. 4. GI bleeding. Patient did have labs drawn, patient remains anemic, but no significant decrease in counts to indicate continued bleeding. Patient denies any signs or symptoms of ernesto red blood, some mucus occasionally pink. 5. Anxiety. This is multifactorial, patient has had a continued difficult course, does get quite anxious trying to balance the medications, they have not heard back from the surgeon for an appointment. Patient remains quite frail, both he and his son are hoping for time to recover. 6. Weight loss. Patient has lost another 2 to 3 pounds, discussed being able to start to add more food items, pain attention to things that exacerbate cramping or diarrhea. Patient continues with small frequent feedings. Will have dietitian reach out. 7. Advanced care planning. Patient does have DPOA, as well as some end-of-life planning documents in place. His goals at this time are to continue treatment though is quite apprehensive about his quality of life. We will continue to follow-up with patient, for symptom management, encouraged to reach out for any concerns. Psychosocial support provided in the context of anticipatory guidance and hoping for the best, but both recognize his decline in health over the last several weeks to months. 45 minutes with review of labs, oncology notes, radiation oncology notes, [id number] with patient for symptom management and update on medications, as well as anticipatory guidance.
== END 2022-02-09 13:53 | disposition home or self-care (01) ==
LOC: PC 13:52
PROVIDERS: ATTEND Nurse Practitioner Adult Health
DX: Z51.5 Encounter for palliative care (principal); C20 Malignant neoplasm of rectum; N40.1 Benign prostatic hyperplasia with lower urinary tract symptoms; R35.0 Frequency of micturition; K52.0 Gastroenteritis and colitis due to radiation; R10.9 Unspecified abdominal pain; K62.89 Other specified diseases of anus and rectum; D64.9 Anemia, unspecified; K92.2 Gastrointestinal hemorrhage, unspecified; F41.9 Anxiety disorder, unspecified; R63.4 Abnormal weight loss
CPT/HCPCS: 99350

== ENCOUNTER 2022-02-26 14:30 | Outpatient (CLI) | payer MEDICARE ==
--- NOTE | 2022-02-26 16:14 | CONSULTATION NOTE ---
Palliative Care Follow Up - Referral Referring Provider: Dr. Jose David Nobles Time of Visit: 5546-5900 Referral setting: Home Referral Reason: Rectal CA/Weight loss/Anxiety - Information Sources Records reviewed: Previous records reviewed History/Review of Systems obtained from: Patient, Family (seen with son Jaun) Exam limitations: No limitations - History of Present Illness Update Brief HPI Update: This is a 76-year-old gentleman who is known rectal cancer, received 3 cycles of FOLFOX 6 with severe complications including hospitalization for 5 weeks with respiratory distress, neutropenic colitis, SVT and had a slow recovery including a SNF stay. Most recently he received 5 radiation treatments, and is still re covering, though reports his dumping syndrome, abdominal pain, and bowels though fluctuate between diarrhea and constipation have improved. He has added Metamucil capsules, twice a day with good results as far as slowing down the watery diarrhea. He is starting to progress his diet, does find some things trigger the diarrhea. He does continue with some pain and rectal pressure after bowel movements, but is improving. He is getting good relief with the hyoscyamine, using every four hours while awake. Unfortunately still is being challenged with getting enough calories, his weight is dropped more down to 148. He though appears more brighter, is walking better, does seem a little bit stronger. His pain is mostly with sitting, thus he lays sedentary in his bed with his feet up. His son is encouraging him to walk more, and patient is starting to show interest in things outside of his illness.g about every 4 hours while awake, and occasional hydrocodone/APAP for rectal pain in am after BM. Past Medical History: GERD, history of GI bleed, history of ulcers, chronic diarrhea alternating with chronic constipation, history of neutropenic colitis, BPH, chronic vision loss, osteoarthritis, chronic back pain Social History - Living Situation Living arrangement: At home Living Situation: With family Support System: Patient lives in his own's home with 2 sons. They are in various stages remodeling has been difficult with patient's hospitalizations and illness. Jaun has been provided ongoing support and advocating for medical needs, has moved in with his dad since the diagnosis of colon cancer. 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 Medications/Allergies - Medications Home Medications: Ambulatory Orders Medication Instructions Recorded Confirmed Acetaminophen [Tylenol] 650 mg PO Q4HR PRN tablet 10/22/21 02/26/22 Ferrous Gluconate [Fergon] 324 mg PO DAILYWM #30 tablet 10/22/21 02/26/22 Lactobacillus Rhamnosus GG 1 cap PO DAILY #15 cap 10/22/21 02/26/22 [Culturelle] Loperamide [Imodium] 2 mg PO QID PRN #60 cap 10/22/21 02/26/22 Multivitamin W/Minerals [Theragran 1 tab PO DAILYWM #30 tablet 10/22/21 02/26/22 M] Pantoprazole [Protonix] 40 mg PO BIDAC #60 tablet 10/22/21 02/26/22 Potassium Chloride Oral Soln 20 meq PO QDDINNER #30 units 10/22/21 02/26/22 [Potassium Chloride] Tamsulosin [Flomax] 0.8 mg PO DAILY 11/10/21 02/26/22 Cholecalciferol (Vitamin D3) 2,000 unit PO DAILY 12/15/21 02/26/22 [Vitamin D3] Folic Acid 1 mg PO DAILY 12/15/21 02/26/22 Zinc Gluconate [Zinc] 50 mg PO DAILY 12/15/21 02/26/22 HYDROcod/ACETAM 5/325 [[place] 5/325] 1 tab PO Q4HR PRN 02/04/22 02/26/22 Hyoscyamine [Levsin] 0.125 mg PO Q4HR PRN 02/04/22 02/26/22 Psyllium Husk [Metamucil] 1 tab PO BID MDD titrate to effect 02/26/22 02/26/22 - Allergies Allergies/Adverse Reactions: Allergies Allergy/AdvReac Type Severity Reaction Status Date / Time No Known Drug Allergies Allergy Verified 02/02/22 08:38 Review of Systems - Constitutional Constitutional: reports: Fatigue (improving), Weakness, Weight loss (150.4 02/09; 148 today) - Eyes Eyes: reports: Vision loss, Corrective lenses - Ears, Nose & Throat Ears, Nose & Throat: reports: Dry mouth. denies: Mouth lesions - Cardiovascular Cardiovascular: reports: Lightheadedness (less often), Exertional dyspnea, Decr. exercise tolerance. denies: Irregular heart rate, Palpitations, Chest pain, Edema - Respiratory Respiratory: reports: SOB with exertion. denies: SOB at rest - Gastrointestinal Gastrointestinal: reports: Diarrhea (dumping after meals almost resolved), Bloating, Poor appetite, Early satiety. denies: Rectal bleeding - Genitourinary Genitourinary: reports: Frequency, Other (stream improved; voiding without difficulty, pleased) - Musculoskeletal Musculoskeletal: reports: Back pain (new acute pain; hx if recurrent), Stiffness, Muscle weakness, Assistive devices (using trekking poles) - Integumentary Integumentary: reports: Dryness - Neurological Neurological: reports: General weakness, Memory problems (STM intermittent), Abnormal gait (slow shuffled noted perioheral neuropathy affecting balance; not painful) - Psychiatric Psychiatric: reports: Depression, Anxiety - Endocrine Endocrine: reports: Intolerance to cold - Hematologic/Lymphatic Hematologic/Lymph: reports: Anemia (11.4 no further signs of bleeding or blood loss). denies: Recurrent infections - All Other Systems All Other Systems: reports: Reviewed and negative Physical Exam - Vital Signs Temperature: 97.4 C Pulse Rate: 91 Respiratory Rate: 18 O2 Saturation: 98 Blood Pressure: 114/58 (sitting 92/68 standing) - Physical Exam General Appearance: positive: Alert, Moderate distress, Anxious, Cachetic Eyes Bilateral: positive: Normal inspection ENT: negative: Dry mucous membranes Neck: positive: Trachea midline Cardiovascular: positive: Regular rate & rhythm, Tachycardia Respiratory: positive: No respiratory distress, Breath sounds nml Abdomen: positive: Soft, Tenderness Skin: positive: Pallor, Dryness Extremities: positive: No pedal edema Neurologic/Psychiatric: positive: Oriented x3, Mood/affect nml, Weakness, Flat affect Palliative Care - POLST Patient has POLST: Yes POLST Status: Full Code Pain: Pain improved, Location (rectum; worse with sitting and after BM) Feelings of wellbeing/Perceived Quality of Life: Fair, Acceptable, Improved Sleep: Sleep improved Constipation: Yes, Intermittent constipation (alternating with diarrhea) Performance Status: Patient is showing functional improvement, is able to ambulate longer distances, is using trekking poles. They are trying to push for building of endurance, though is very weak. Encouraged to do more ambulation and home exercise program. He did shower today, is quite fatiguing but is doing better following through on ADLs. - Palliative Care Discussion: Patient does see oncologist on 03/09. Hopes to be good enough condition to get referral onto surgery. He is quite anxious regarding this, we discussed again the implications, patient does have serious disease. He is hoping and does understand most likely will involve a colostomy, counseling provided regarding experiences of patients with colostomy, adaptation, and given his current distress with his diarrhea/constipation he may actually find it a relief in the end. Discussed local resources [facility] at [facility]. We will continue to monitor, patient would most likely benefit from home health referral on discharge from hospital.We did discuss looking and reframing some of his anxiety towards looking forward, to finding things that bring him cristina on a day-to-day basis, he shared some of his excitement regarding interest in some of his hobbies. Encouraged on follow through with this, and hoping for the best as well, though recognizing he has a very serious illness. Impression and Recommendations - Palliative Care Impression: This is a 76-year-old gentleman with known rectal cancer T3N1, having completed radiation with goal to proceed to surgery. He remains quite frail, continues wi th weight loss, is doing better with bowel function. Patient and son remain anxious regarding expected outcomes in the future. Palliative care continue provide support, address symptom management and anticipatory guidance. Recommendations/Counseling Done: 1. Diarrhea. This is multifactorial, patient has had irregular bowel movements since initial diagnosis, since has received radiation difficult finding a balance. Does seem to be doing better with the Metamucil slowing down diarrhea, though does have some intermittent constipation. Denies any further bleeding. We will continue to monitor. 2. Abdominal cramping. Patient still continues with intermittent abdominal cramping. Is doing well on the hyoscyamine 0.125 mg using about 4 times a day. Patient has been counseled to try and decrease when abdominal pain improves. 3. Rectal pain patient continues with rectal pain and pressure though this is easing up, has been able to manage mostly with acetaminophen and occasional hydrocodone/acetaminophen. Still having some perirectal tenderness and irritation from radiation. Has been instructed to use ointment to keep it protected. 4. Anxiety. This is multifactorial, patient has had a difficult course but is doing a little bit better. Seems much brighter and engaged today. They are hoping to get the okay from oncologist to proceed with surgery at appointment on 03/09. We will continue to follow. 5. Weight loss. Patient has lost another few pounds, again reviewed strategies to increase calories, patient is quite discouraged. Encouraged to set goal of just no further weight loss. Discussed how to integrate small frequent feedings, high-calorie drinks, will continue to monitor. 6. Advanced care planning. Patient does have DPOA as well as some end-of-life planning documents in place. His goals at this time are to continue and follow through with surgery, is appropriately concerned with pending surgery and looking at colostomy. Psychosocial support provided in the context of anticipatory guidance. Continuing to walk alongside. 45 minutes with greater than 50% of this done in counseling regarding pain and symptom management,Anticipatory guidance, review current regimen, and addressing questions.
== END 2022-02-26 14:31 | disposition home or self-care (01) ==
LOC: PC 14:30
PROVIDERS: ATTEND Nurse Practitioner Adult Health
DX: Z51.5 Encounter for palliative care (principal); G89.3 Neoplasm related pain (acute) (chronic); C20 Malignant neoplasm of rectum; K52.89 Other specified noninfective gastroenteritis and colitis; R19.7 Diarrhea, unspecified; K59.00 Constipation, unspecified; F41.9 Anxiety disorder, unspecified; R63.4 Abnormal weight loss; R53.1 Weakness; D64.9 Anemia, unspecified; G62.9 Polyneuropathy, unspecified; N40.0 Benign prostatic hyperplasia without lower urinary tract symptoms
CPT/HCPCS: 99349

== ENCOUNTER 2022-03-09 15:33 | Outpatient (CLI) | payer MEDICARE ==
--- NOTE | 2022-03-09 16:13 | CONSULTATION NOTE ---
Palliative Care Follow Up - Referral Referring Provider: Dr. Jose David Nobles Time of Visit: 1445 30 min Referral setting: [facility] [place] Reason: Constipation/Weight loss/Anxiety/Rectal CA - Information Sources Records reviewed: Previous records reviewed History/Review of Systems obtained from: Patient, Family (son Krzysztof) Exam limitations: No limitations - History of Present Illness Update Brief HPI Update: This is a 76-year-old gentleman who has known rectal cancer, had received 3 cycles of FOLFOX 6 with severe complications including hospitalization for 5 weeks with respiratory distress, neutropenic colitis, SVT and a slow recovery including a SNF stay. He has recently completed 5 radiation treatments, had had fluctuating alternations between diarrhea and constipation, still describes some dumping syndrome. He reports this is gradually improved, is needing less bowel meds, and cramping is improved as well not needing more than 1 or 2 doses of hyoscyamine.He is eating better, has had few pounds of weight gain up to 158, is staying hydrated, has not noted any rectal bleeding. He does notice smaller rocio iber of stool, is not straining but unfortunately has to sit on the toilet for 45 to 60 minutes to totally evacuate his bowels. It often is a reflex after eating, that he notes he needs to move his bowels. He does have residual rectal pain after bowel movement, occasionally needing hydrocodone 5 mg/acetaminophen 325 mg for relief. He presents in good spirits, he has been told to follow-up with Dr. Freedman, ideal time for surgery is 6 to 8 weeks after completing radiation. He has built up some strength, his most comfortable position unfortunately though is laying down, does still have some rectal pressure and discomfort with sitting. Past Medical History: GERD, history of GI bleed, history of ulcers, chronic diarrhea alternating with chronic constipation, history of neutropenic colitis, BPH, chronic vision loss, osteoarthritis chronic back pain Social History - Living Situation Living arrangement: At home Living Situation: With family Support System: Patient lives in his own home, with his 2 sons. They are in various stages of remodeling having difficult time with patient's hospitalization and illness completing the task. Jaun has been providing ongoing support and advocating for medical needs, has moved in with his dad since diagnosis of colon cancer. 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 He is starting to show interest in some of his previous hobbies and activities. Medications/Allergies - Medications Home Medications: Ambulatory Orders Medication Instructions Recorded Confirmed Acetaminophen [Tylenol] 650 mg PO Q4HR PRN tablet 10/22/21 03/09/22 Ferrous Gluconate [Fergon] 324 mg PO DAILYWM #30 tablet 10/22/21 03/09/22 Loperamide [Imodium] 2 mg PO QID PRN #60 cap 10/22/21 03/09/22 Multivitamin W/Minerals [Theragran 1 tab PO DAILYWM #30 tablet 10/22/21 03/09/22 M] Pantoprazole [Protonix] 40 mg PO BIDAC #60 tablet 10/22/21 03/09/22 Potassium Chloride Oral Soln 20 meq PO QDDINNER #30 units 10/22/21 03/09/22 [Potassium Chloride] Tamsulosin [Flomax] 0.8 mg PO DAILY 11/10/21 03/09/22 Cholecalciferol (Vitamin D3) 2,000 unit PO DAILY 12/15/21 03/09/22 [Vitamin D3] Folic Acid 1 mg PO DAILY 12/15/21 03/09/22 Zinc Gluconate [Zinc] 50 mg PO DAILY 12/15/21 03/09/22 HYDROcod/ACETAM 5/325 [[place] 5/325] 1 tab PO Q4HR PRN 02/04/22 03/09/22 Hyoscyamine [Levsin] 0.125 mg PO Q4HR PRN 02/04/22 03/09/22 Psyllium Husk [Metamucil] 1 tab PO BID PRN MDD titrate to 02/26/22 03/09/22 effect - Allergies Allergies/Adverse Reactions: Allergies Allergy/AdvReac Type Severity Reaction Status Date / Time No Known Drug Allergies Allergy Verified 02/02/22 08:38 Review of Systems - Constitutional Constitutional: reports: Fatigue (improving), Weakness (improving), Weight gain (158) - Eyes Eyes: reports: Vision loss, Corrective lenses - Ears, Nose & Throat Ears, Nose & Throat: reports: Dry mouth. denies: Mouth lesions - Cardiovascular Cardiovascular: reports: Lightheadedness (less often), Exertional dyspnea, Decr. exercise tolerance. denies: Irregular heart rate, Palpitations, Chest pain, Edema - Respiratory Respiratory: reports: SOB with exertion. denies: SOB at rest - Gastrointestinal Gastrointestinal: reports: Bloating, Early satiety, Good appetite (improved). denies: Constipation (improved but still difficulty with "dumping" after meals; taking up to 45-60 minutes to empty bowels), Rectal bleeding - Genitourinary Genitourinary: reports: Frequency, Other (stream improved; voiding without difficulty, pleased) - Musculoskeletal Musculoskeletal: reports: Stiffness, Muscle weakness, Assistive devices (using trekking poles) - Integumentary Integumentary: reports: Dryness - Neurological Neurological: reports: General weakness, Memory problems (STM intermittent), Abnormal gait (slow shuffled noted peripheral neuropathy affecting balance; not painful) - Psychiatric Psychiatric: reports: Depression, Anxiety - Endocrine Endocrine: reports: Intolerance to cold - Hematologic/Lymphatic Hematologic/Lymph: reports: Anemia (11.4 no further signs of bleeding or blood loss). denies: Recurrent infections - All Other Systems All Other Systems: reports: Reviewed and negative Physical Exam - Physical Exam General Appearance: positive: No acute distress, Alert, Cachetic Eyes Bilateral: positive: Normal inspection ENT: negative: Dry mucous membranes Neck: positive: Trachea midline Cardiovascular: positive: Regular rate & rhythm Respiratory: positive: No respiratory distress Abdomen: positive: Soft, Tenderness Skin: positive: Pallor, Dryness Extremities: positive: No pedal edema Neurologic/Psychiatric: positive: Oriented x3, Mood/affect nml, Weakness, Flat affect Palliative Care - POLST Patient has POLST: Yes POLST Status: Full Code Pain: Pain improved, Location (rectal vault after defecation; occ use of vicodin) Tiredness/Fatigue: Moderate (4-6) Drowsiness/Sedation: Mild (1-3) Nausea: None Anorexia: Mild (1-3) Dyspnea: Mild (1-3) Depression: Mild (1-3) Anxiety: Mild (1-3) Feelings of wellbeing/Perceived Quality of Life: Good, Acceptable, Improved Sleep: Sleep improved Constipation: Yes, Intermittent constipation Performance Status: Patient's performance status continues to improve, he is ambulating short distances, longer distance with his trekking poles. Feels like he is gaining some strength. Activity and tolerance has improved overall. Patient is able to manage his own ADLs. Son trying to get him out and moving a little bit more. Patient is more engaged in helping around the house with household tasks - Palliative Care Discussion: Patient is feeling more positive overall, is hopeful that pending surgery will give him some relief as well as prolong his quality of life. It is important for patient to be independent, is hoping to return to some level of independence. He does understand that surgery is going to be complicated, most likely involves a colostomy. Have provided teaching and instruction already if this were to be the case, patient continues to look forward to putting his treatment behind him. They are somewhat frustrated as still have not made contact with the surgeon, was hoping oncology is going to ease that transition. Agreed with send the notes and most recent labs with need for pending appointment and encouraged to follow through and call. Results - Lab Results Lab results reviewed: Yes Impression and Recommendations - Palliative Care Impression: This is a 76-year-old gentleman with known rectal cancer, T3N1 having completed radiation with goal to proceed to surgery. He remains quite frail though continues to improve with some small weight gain, increasing strength, bowel function is improved but still problematic. Patient and son remain anxious regarding expected outcomes in the future. Palliative care continue provide support through symptom management and anticipatory guidance. Recommendations/Counseling Done: 1. Constipation. Patient is doing well with bowel regulation, is having soft formed stools, though of narrower caliber than previously. No rectal bleeding. Does demonstrate some mild dumping syndrome, as well as increasing time and difficulty evacuation with residual pain. Patient does feel this is improved, second forward to surgery and resolution. 2. Abdominal cramping. This continues to improve, is doing well on the high so we will sling 0.125 mg down to 2 times a day as needed.Is trying to work with diet to avoid triggers. 3. Rectal pain. This appears to be mostly related to post defecation. Has needed some intermittent hydrocodone as it does get quite severe. He is using ointment to continue keep protected. 4. For anxiety. This is multifactorial, patient has had a difficult course but is doing both physical better physically and emotionally. Seems brighter and engaged today. Somewhat frustrated that they are waiting on the surgical appointment, will help facilitate by sending notes. 5. Weight loss. Patient has actually gained a few pounds, is doing better with strategies, small frequent feedings and snacks in between. Is doing protein shakes, gets uncomfortable if eats too much, but doing protien shakes. 6. Rectal cancer. Patient has completed radiation, is not a candidate for further chemotherapy nor interested at this point. Is looking forward to surgical intervention, and hoping to "get on with it" to get back to somewhat more normal routine. Patient continues to hope for the best, is aware he is quite frail, is hopeful with the outcome of the surgery will be done with treatment. Palliative care continue to follow and provide support 30 minutes with review of chart, labs, coordination of care with oncology/surgical team will send notes and labs, anticipatory guidance and review of symptoms.
== END 2022-03-09 15:34 | disposition home or self-care (01) ==
LOC: PC 15:33
PROVIDERS: ATTEND Nurse Practitioner Adult Health
DX: Z51.5 Encounter for palliative care (principal); K59.00 Constipation, unspecified; F41.9 Anxiety disorder, unspecified; K62.89 Other specified diseases of anus and rectum; K31.89 Other diseases of stomach and duodenum; Z92.3 Personal history of irradiation; R10.9 Unspecified abdominal pain; R53.1 Weakness; R06.09 Other forms of dyspnea; R26.89 Other abnormalities of gait and mobility; C20 Malignant neoplasm of rectum; Z79.899 Other long term (current) drug therapy
CPT/HCPCS: 99214

== ENCOUNTER 2022-04-02 16:15 | Outpatient (CLI) | payer MEDICARE ==
--- NOTE | 2022-04-02 18:37 | CONSULTATION NOTE ---
Palliative Care Follow Up - Referral Referring Provider: Dr. Nobles Time of Visit: [id number] Referral setting: Home Referral Reason: Rectal CA/Rectal pain - Information Sources Records reviewed: Previous records reviewed History/Review of Systems obtained from: Patient, Family (son Jaun present) Exam limitations: No limitations - History of Present Illness Update Brief HPI Update: This is a 76-year-old gentleman who has known rectal cancer, had received 3 cycles of FOLFOX 6 with severe complications and hospitalization. This also included a SNF stay, he also completed radiation treatments. This is continued to improve as far as side effects, patient does have rectal discomfort, but as he gets further away from radiation, his bowels are moving more regular, only taking 20 minutes on the toilet versus 40-45. Still has some residual rectal pain after going. He did see the surgeon, who had done a scope and could see nothing but scar tissue, so patient may be looking at monitoring/surveillance only. He is to receive an MRI of his chest pelvis to rule out. Patient also presented with a 2 x 3 cm lump to the outer side of his right nipple, the last 4 days. He is to get an ultrasound and biopsy if indicated. Patient continues to gain weight, he was 158.8, with his goals to be over 160. His baseline weight is 180. He does still get intermittent cramping and uses hyoscyamine with good response, and continues to use intermittent Tylenol and hydrocodone for rectal discomfort.He has been working on building his strength up, he is using walking sticks and walking longer distances, is getting out of the house more, and appears quite bright and engaged. He does have understandably anxiety regarding pending scans, if do not reveal any further disease, will be on surveillance, but still is possibly facing surgery. Past Medical History: GERD, history of GI bleed, history of ulcers, chronic diarrhea alternating with chronic constipation, history of neutropenic colitis, BPH, chronic vision loss, osteoarthritis, chronic back pain, hearing loss. Social History - Living Situation Living arrangement: At home Living Situation: With family Support System: Patient is in his own home with his 2 sons, they are in various stages remodeling. He has been providing ongoing support and advocating for medical needs and has moved in with his dad since diagnosis of colon cancer. 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 He has been able to participate in some projects which has made him feel more useful. Medications/Allergies - Medications Home Medications: Ambulatory Orders Medication Instructions Recorded Confirmed Acetaminophen [Tylenol] 650 mg PO Q4HR PRN tablet 10/22/21 04/02/22 Ferrous Gluconate [Fergon] 324 mg PO DAILYWM #30 tablet 10/22/21 04/02/22 Loperamide [Imodium] 2 mg PO QID PRN #60 cap 10/22/21 04/02/22 Multivitamin W/Minerals [Theragran 1 tab PO DAILYWM #30 tablet 10/22/21 04/02/22 M] Pantoprazole [Protonix] 40 mg PO BIDAC #60 tablet 10/22/21 04/02/22 Potassium Chloride Oral Soln 20 meq PO QDDINNER #30 units 10/22/21 04/02/22 [Potassium Chloride] Tamsulosin [Flomax] 0.8 mg PO DAILY 11/10/21 04/02/22 Cholecalciferol (Vitamin D3) 2,000 unit PO DAILY 12/15/21 04/02/22 [Vitamin D3] Folic Acid 1 mg PO DAILY 12/15/21 04/02/22 Zinc Gluconate [Zinc] 50 mg PO DAILY 12/15/21 04/02/22 HYDROcod/ACETAM 5/325 [[place] 5/325] 1 tab PO Q4HR PRN 02/04/22 04/02/22 Hyoscyamine [Levsin] 0.125 mg PO Q4HR PRN 02/04/22 04/02/22 Psyllium Husk [Metamucil] 1 tab PO BID PRN MDD titrate to 02/26/22 04/02/22 effect - Allergies Allergies/Adverse Reactions: Allergies Allergy/AdvReac Type Severity Reaction Status Date / Time No Known Drug Allergies Allergy Verified 02/02/22 08:38 Review of Systems - Constitutional Constitutional: reports: Fatigue (improving), Weakness (improving), Weight gain (158) - Eyes Eyes: reports: Vision loss, Corrective lenses - Ears, Nose & Throat Ears, Nose & Throat: reports: Hearing loss, Dry mouth. denies: Mouth lesions - Cardiovascular Cardiovascular: reports: Exertional dyspnea, Decr. exercise tolerance. denies: Irregular heart rate, Palpitations, Chest pain, Edema - Respiratory Respiratory: reports: SOB with exertion. denies: SOB at rest - Gastrointestinal Gastrointestinal: reports: Bloating, Early satiety, Good appetite (improved). denies: Constipation (improved, taking 20 minutes vs 45 minutes to empty bowels), Rectal bleeding - Genitourinary Genitourinary: reports: Frequency, Other (stream improved; voiding without difficulty) - Musculoskeletal Musculoskeletal: reports: Stiffness, Muscle weakness, Assistive devices (using trekking poles) - Integumentary Integumentary: reports: Dryness - Neurological Neurological: reports: General weakness, Memory problems (STM intermittent; seems clearer c/o forgetting names), Abnormal gait (slow shuffled noted peripheral neuropathy affecting balance; not painful) - Psychiatric Psychiatric: reports: Depression, Anxiety - Endocrine Endocrine: reports: Intolerance to cold - Hematologic/Lymphatic Hematologic/Lymph: reports: Anemia. denies: Recurrent infections - All Other Systems All Other Systems: reports: Reviewed and negative Physical Exam - Vital Signs Temperature: 97.6 C Pulse Rate: 88 Respiratory Rate: 18 O2 Saturation: 98 Blood Pressure: 108/72 - Physical Exam General Appearance: positive: No acute distress, Alert Eyes Bilateral: positive: Normal inspection ENT: negative: Dry mucous membranes Neck: positive: Trachea midline Cardiovascular: positive: Regular rate & rhythm Respiratory: positive: No respiratory distress, Breath sounds nml Abdomen: positive: Non-tender, Soft Skin: positive: Pallor, Dryness, Other (small soft movable lump left of areola about size of walnut) Extremities: positive: No pedal edema Neurologic/Psychiatric: positive: Oriented x3, Mood/affect nml, Weakness, Flat affect Palliative Care - POLST Patient has POLST: Yes POLST Status: Full Code Pain: Pain improved, Location (rectal pain after bm), Comment (usually responds to apap or occ. hydrocodone) Feelings of wellbeing/Perceived Quality of Life: Good, Acceptable, Improved Sleep: Sleep improved Constipation: Yes, Managed Performance Status: Patient's performance status continues to improve, is ambulating longer distances with walking sticks. Does get "wobbly legs" as he fatigues through the day, but is going out for walks to the mailbox, store, of less pain lying flat, but son tries to encourage him to be up more. - Palliative Care Discussion: Patient and son feel like they got good news from the surgeon, are hopeful that MRI is going to be negative. We did discuss long-term anxiety related to watch and wait, I hoping for the best that cancer is in remission. Pending surgery depending on outcome of MRI and breast ultrasound. Patient is continuing to improve and is pleased. We did discuss in the context of his current healthcare status, he is quite strong if there is anything he wanted to do as far as his "bucket list" would recommend considering making a priority list. Patient reports he does not want to travel, he is an daughter in [place] that might attempt him, otherwise is quite satisfied Out of the house with his boys. He is in very good spirits today, though appropriately anxious about implications if finds further disease. Impression and Recommendations - Palliative Care Impression: THis is a 76-year-old gentleman with known rectal cancer, T3N1 having completed radiation with goal to proceed to surgery. He has seen surgeon, who did a scope that side and no residual continues, plan at this point is for MRI to look for disease and plan accordingly. Patient has had increased strength, bowel function is improved but still remains painful after evacuation, patient improved and he is feeling much more positive overall. Palliative care continue provide support through symptom management and anticipatory guidance. Recommendations/Counseling Done: 1. Constipation. Patient is doing much better with bowel regulation, is half having soft formed stools with less effort and time on the toilet. Denies any rectal bleeding, still has some intermittent abdominal cramping we will response to high-dose so I mean, needs to only take every 2 or 3 days. Also has residual rectal pain after BM, uses intermittent Tylenol and hydrocodone. 2. Anxiety. This is multifactorial, patient has had a difficult course but continues to improve both physically and emotionally. Patient is bright and engaged today, had good appointment with surgeon, plan will be dependent on outcome of MRIs, counseling provided regarding living in the moment, and with serious illnesses always expectant waiting. Discussed ways to engage his coping mechanisms to better support his anxiety. 3. Weight loss. Patient continues to gain weight, he is still less than his ideal which he perceives as 160. Prior to that illness he was 180. He is eating snacks, frequent feedings, protein shakes but does get uncomfortable if eats too much. 4. Rectal cancer. Patient's completed radiation, no further chemotherapy or is he interested at this point. They are waiting if will be on surveillance or will require a surgical intervention, with the goal for surgery beginning of April if needed. Patient has been engaging with more around the house, with projects and activities, and seems much less depressed. 45 minutes with greater than 50% of this time in counseling regarding symptom management, medication review, coordination of care with oncology and anticipatory guidance.
== END 2022-04-02 16:16 | disposition home or self-care (01) ==
LOC: PC 16:15
PROVIDERS: ATTEND Nurse Practitioner Adult Health
DX: Z51.5 Encounter for palliative care (principal); C20 Malignant neoplasm of rectum; Z92.21 Personal history of antineoplastic chemotherapy; Z92.3 Personal history of irradiation; R63.4 Abnormal weight loss; F41.9 Anxiety disorder, unspecified; K59.00 Constipation, unspecified; K62.89 Other specified diseases of anus and rectum; Z79.899 Other long term (current) drug therapy
CPT/HCPCS: 99349

== ENCOUNTER 2022-09-28 12:23 | Emergency (ER) | payer MEDICARE ==
[2022-09-28 12:56] LABS: BASOPHILS % (AUTO) 0.6 %; EOSINOPHILS # (AUTO) 0.2 10^3/uL (0.0-0.7); EOSINOPHILS % (AUTO) 5.2 %; HCT - HEMATOCRIT 40.6 % (42.0-52.0); HGB - HEMOGLOBIN 13.5 g/dL (14.0-18.0); LYMPHOCYTES # (AUTO) 0.7 10^3/uL (1.5-3.5); LYMPHOCYTES % (AUTO) 19.8 %; MEAN CORPUSCULAR HEMOGLOBIN 33.4 pg (27.0-31.0); MEAN CORPUSCULAR HGB CONC 33.3 g/dL (32.0-36.0); MEAN CORPUSCULAR VOLUME 100.5 fL (80.0-94.0); MONOCYTES # (AUTO) 0.3 10^3/uL (0.0-1.0); MONOCYTES % (AUTO) 8.4 %; NEUTROPHILS # (AUTO) 2.3 10^3/uL (1.5-6.6); PLT - PLATELET COUNT 162 10^3/uL (130-450); RED BLOOD COUNT 4.04 10^6/uL (4.70-6.10); RED CELL DISTRIBUTION WIDTH 13.6 % (12.0-15.0); WHITE BLOOD COUNT 3.4 x10^3/uL (4.8-10.8)
[2022-09-28 13:09] LABS: ALBUMIN 3.9 g/dL (3.2-5.5); ALBUMIN/GLOBULIN RATIO 1.1 (1.0-2.2); BILIRUBIN,TOTAL 0.8 mg/dL (0.2-1.0); CALCIUM 9.1 mg/dL (8.5-10.3); CREATININE 0.8 mg/dL (0.6-1.2); POTASSIUM 3.8 mmol/L (3.5-5.0); TOTAL PROTEIN 7.6 g/dL (6.7-8.2)
--- NOTE | 2022-09-28 14:14 | ED Physician Documentation ---
PD HPI ABD PAIN - Stated complaint Stated Complaint: R LOWER ADB PX - Chief complaint Chief Complaint: Abd Pain - History obtained from History obtained from: Patient - History of Present Illness Timing - onset: How many weeks ago (2) Timing - duration: Weeks (2) Timing - details: Gradual onset, Still present, Waxing and waning (has pain when upright/walking and with urinating/bms. Improved and no pain when lyuing down. pain right lower abd/inguinal area.) Quality: Cramping, Aching, Pain Location: RLQ Radiation: No: Lower back, Right flank Improved by: Position (lying down, particularly on back.). No: Eating Worsened by: Position (standing up and walking). No: Eating Associated symptoms: Nausea, Vomiting. No: Fever, Diarrhea, Constipation, Dysuria Similar symptoms before: Has not had sx before Recently seen: Clinic (seen by his Colorectal surgeon last week and it was felt to be likely a hernia. Was to get U/S ordered but not yet ordered. Pain has been worse the past few days.) Review of Systems Constitutional: denies: Fever, Chills Nose: denies: Rhinorrhea / runny nose, Congestion Throat: denies: Sore throat Respiratory: denies: Cough GI: reports: Nausea, Other (ongoing rectal mucous drainage since his colectomy with rectosigmoid anastomosis.). denies: Vomiting, Constipation (has had normal output from his colostomy.) Neurologic: denies: Focal weakness, Numbness, Near syncope PD PAST MEDICAL HISTORY - Past Medical History Cardiovascular: None Respiratory: None Neuro: None Endocrine/Autoimmune: None GI: GERD, GI bleed, Ulcers, Other (colon cancer with surgery, with colostomy and colorectal anastomosis. ) : None HEENT: Chronic vision loss Psych: None Musculoskeletal: Osteoarthritis Derm: None - Past Surgical History Past Surgical History: Yes General: Cholecystectomy, Bowel surgery, Colonoscopy, Other - Present Medications Home Medications: Ambulatory Orders Medication Instructions Recorded Confirmed Ferrous Gluconate [Fergon] 324 mg PO DAILYWM #30 tablet 10/22/21 08/26/22 Loperamide [Imodium] 2 mg PO QID PRN #60 cap 10/22/21 08/26/22 Multivitamin W/Minerals [Theragran 1 tab PO DAILYWM #30 tablet 10/22/21 08/26/22 M] Tamsulosin [Flomax] 0.4 mg PO DAILY 11/10/21 08/26/22 Cholecalciferol (Vitamin D3) 2,000 unit PO DAILY 12/15/21 08/26/22 [Vitamin D3] Folic Acid 1 mg PO DAILY 12/15/21 08/26/22 Zinc Gluconate [Zinc] 50 mg PO DAILY 12/15/21 08/26/22 HYDROcod/ACETAM 5/325 [[place] 5/325] 0.5 - 1 tab PO Q4HR PRN 02/04/22 08/26/22 Hyoscyamine [Levsin] 0.125 mg PO Q4HR PRN 02/04/22 08/26/22 Psyllium Husk [Metamucil] 1 tab PO BID PRN MDD titrate to 02/26/22 08/26/22 effect Acetaminophen [Pain Relief Extra 500 - 1,000 mg PO Q8HR PRN 07/12/22 08/26/22 Strength] Ferrous Gluconate [Fergon] 225 mg PO DAILY 07/12/22 08/26/22 Pantoprazole [Protonix] 40 mg PO DAILY 07/12/22 08/26/22 Potassium Chloride 20 meq PO DAILY 07/12/22 08/26/22 - Allergies Allergies/Adverse Reactions: Allergies Allergy/AdvReac Type Severity Reaction Status Date / Time Chemo Allergy Unknown Uncoded 09/28/22 12:38 - Social History Does the pt smoke?: No Smoking Status: Never smoker Does the pt drink ETOH?: No Does the pt have substance abuse?: No - Immunizations Immunizations are current?: Yes Immunizations: TDAP >10years/unknown - POLST Patient has POLST: Yes POLST Status: Full Code PD ED PE NORMAL - Vitals Vital signs reviewed: Yes - General General: Alert and oriented X 3, No acute distress (with lying. Appears uncomfortable when standing. ), Well developed/nourished - Cardiac Cardiac: RRR, No murmur - Respiratory Respiratory: Clear bilaterally - Abdomen Abdomen: Normal bowel sounds, Soft, Non distended, No organomegaly, Other (colostomy left mid abd with good drainage/output. RLQ/inguinal area with small hernia defect area noted lying. With standing, I can feel a foy sized rounded lump protruding from inguinal area c/w hernia. it is very tender. some lower abd cramping with it. ) - Back Back: No CVA TTP - Derm Derm: Normal color, Warm and dry - Extremities Extremities: No edema Results - Vitals Vitals: Vital Signs - 24 hr 09/28/22 09/28/22 09/28/22 12:31 14:18 16:00 Temperature 36.6 C Heart Rate 55 L 70 63 Respiratory 14 12 17 Rate Blood Pressure 100/75 118/59 L 119/68 O2 Saturation 97 94 99 09/28/22 18:00 Temperature Heart Rate 65 Respiratory 19 Rate Blood Pressure 139/69 H O2 Saturation 98 Oxygen O2 Source Room air - Labs Labs: Laboratory Tests 09/28/22 09/28/22 09/28/22 12:52 12:52 18:30 WBC 3.4 L RBC 4.04 L Hgb 13.5 L Hct 40.6 L MCV 100.5 H MCH 33.4 H MCHC 33.3 RDW 13.6 Plt Count 162 MPV 9.0 Neut # (Auto) 2.3 Lymph # (Auto) 0.7 L [place] # (Auto) 0.3 Eos # (Auto) 0.2 Baso # (Auto) 0.0 Absolute Nucleated RBC 0.00 Nucleated RBC % 0.0 Sodium 137 Potassium 3.8 Chloride 107 Carbon Dioxide 23 Anion Gap 7.0 BUN 15 Creatinine 0.8 Estimated GFR (MDRD) 94 Glucose 95 Calcium 9.1 Total Bilirubin 0.8 AST 18 ALT 14 Alkaline Phosphatase 86 Total Protein 7.6 Albumin 3.9 Globulin 3.7 Albumin/Globulin Ratio 1.1 Lipase 27 Urine Color YELLOW Urine Clarity CLEAR Urine pH 5.5 Ur Specific [place] 1.015 Urine Protein NEGATIVE Urine Glucose (UA) NEGATIVE Urine Ketones NEGATIVE Urine Occult Blood MODERATE H Urine Nitrite NEGATIVE Urine Bilirubin NEGATIVE Urine Urobilinogen 0.2 (NORMAL) Ur Leukocyte Esterase NEGATIVE Urine RBC 6-10 H Urine WBC 0-3 Ur Squamous Epith Cells NONE SEEN Urine Bacteria None Seen Ur Microscopic Review INDICATED Urine Culture Comments NOT INDICATED - Rads (name of study) abd/pelvic CT Radiology: Prelim report reviewed (colostomy noted. Rectosigmoid anastomosis with some inflammatory changes and free fluid around area small amount likely inflammatory or normal s/p surgery. ), See rad report abd U/S Radiology: Prelim report reviewed (done lying and standing and rounded hernia with fatty tissue and bowel noted protruding.), See rad report PD MEDICAL DECISION MAKING - ED course Complexity details: reviewed results, considered differential (he declined pain meds here nor rx. Has hernia that is tender and cramping when standing. CT shows nothing unusual to account for pain. U/S verifies hernia felt clinically. Patient has seen dr. Randhawa in the past. Pt and son did not feel the colorectal surgey would do hernia repairs. ), d/w patient Departure - Departure Disposition: 01 Home, Self Care Clinical Impression: Right inguinal pain, Inguinal hernia Condition: Stable Record reviewed to determine appropriate education?: Yes Instructions: ED Hernia Inguinal Follow-Up: Boone Randhawa MD [Provider Admit Priv/Credential] - Comments: Continue with usual medications diet and activity. Avoid lifting or prolonged walking or standing due to the discomfort. You do have a inguinal hernia in that area that is visible on ultrasound and also palpable on exam. Given the degree of discomfort you have with it, it would suggest that there is some acute inflammation or possibly some cramping of the tissue when its in the out position. Continue with Tylenol 4 times daily regularly for the pain and discomfort. Call Dr Murguia' office tomorrow for a urgent follow-up appointment to discuss potential repair or other considerations. You can use a abdominal stretch/Velcro wrap to try to keep the hernia from protruding as much. There were no other unexpected findings on your CT scan. Discharge Date/Time: 09/28/22 18:55
[2022-09-28] MEDS ORDERED: iohexoL-300 100 ML VIAL ONE (15:30)
--- NOTE | 2022-09-28 16:17 | Ultrasound Report ---
PROCEDURE: Abdomen Limited INDICATIONS: RLQ abd wall pain, ? hernia TECHNIQUE: Real-time focused scanning was performed of the abdomen, with image documentation. COMPARISON: 12/10/2021 CT abdomen and pelvis FINDINGS: Focused sonographic evaluation of the area of interest demonstrates a reducible hernia con taining both bowel and adjacent fat. The fascial defect measures approximately 8 mm. IMPRESSION: Reducible right inguinal hernia containing both bowel and fat with approximately 8mm fascial defect. The hernia was present on 12/12/2021 examination, although did not contain bowel at that time. Reviewed by: Kayden Chi MD on 09/28/2022 4:16 PM PST Approved by: Kayden Chi MD on 09/28/2022 4:16 PM PST Station ID: [id number]
--- NOTE | 2022-09-28 16:48 | CT Report ---
PROCEDURE: ABDOMEN/PELVIS W INDICATIONS: RIGHT lower abd pain CONTRAST: 100ml Omnipaque 300 TECHNIQUE: After the administration of intravenous contrast, 5 mm thick sections acquired from the diaphragms to the symphysis. 5 mm thick coronal and sagittal reformats were acquired. For radiation dose reducti on, the following was used: automated exposure control, adjustment of mA and/or kV according to alistair ent size. COMPARISON: None. FINDINGS: Included portions of the lung bases are clear. Cholecystectomy. No abnormally dilated intrahepatic extrahepatic bile ducts. Normal caliber pancreati c duct. No peripancreatic inflammation or fat stranding. Adrenal glands and kidneys demonstrate no ac meron finding. Left renal cyst is unchanged. Normal size and appearance of the spleen. No abnormally dilated or obviously thickened loop of bowel. No pericolonic or mesenteric inflammatory changes. Left lower quadrant colostomy changes noted. Rectosigmoid anastomosis with adjacent free fl uid and presacral fat stranding is nonspecific. Urinary bladder thickness is normal. No threshold enlarged intra-abdominal, retroperitoneal, pelvic, or inguinal lymph nodes identified. L4 compression deformity is new from 12/10/2021 exam. L2 compression deformity is unchanged. IMPRESSION: Presacral fat stranding and fluid density adjacent to the rectosigmoid anastomosis. This could repres ent scarring although a focal infectious/inflammatory process or stricture could cause a similar appe arance. There is no free air to serve as definitive evidence of anastomotic dehiscence, although this cannot be strictly excluded. Age-indeterminate L4 compression deformity, new from 12/10/2021 exam but without a discrete fracture line identified. This is favored to be remote. Reviewed by: Kayden Chi MD on 09/28/2022 4:47 PM PST Approved by: Kayden Chi MD on 09/28/2022 4:47 PM PST Station ID: [id number]
[2022-09-28] MEDS ORDERED: iohexoL-300 100 ML VIAL IVP ONE (18:04)
[2022-09-28 18:16] VITALS: BP 139/69
[2022-09-28 18:40] LABS: BILIRUBIN,URINE NEGATIVE (NEGATIVE); CLARITY,URINE CLEAR (CLEAR); GLUCOSE, URINE (UA) NEGATIVE (NEGATIVE); KETONES,URINE (UA) NEGATIVE (NEGATIVE); LEUKOCYTE ESTERASE, URINE NEGATIVE (NEGATIVE); NITRITE,URINE NEGATIVE (NEGATIVE); OCCULT BLOOD,URINE MODERATE (NEGATIVE); PH,URINE 5.5 PH (5.0-7.5); PROTEIN,URINE NEGATIVE (NEGATIVE); UROBILINOGEN,URINE 0.2 (NORMAL) E.U./dL (NORMAL)
[2022-09-28 18:50] LABS: BACTERIA,URINE None Seen /HPF (None Seen); SQUAMOUS EPITHELIAL CELL,UR NONE SEEN (<= Few); WBC,URINE 0-3 /HPF (0-3)
== END 2022-09-28 18:55 | disposition home or self-care (01) ==
LOC: ED 12:23
DX: K40.90 Unilateral inguinal hernia, without obstruction or gangrene, not specified as recurrent (principal)
CPT/HCPCS: 36415; 74177; 76705; 80053; 81001; 83690; 85025; 99284; Q9967; 81003; 87086

== ENCOUNTER 2022-10-20 11:36 | Day surgery (SDC) | payer MEDICARE ==
[~2022-10-20 11:36] MED LIST: BUPIVACAINE 0.5% PF 30 ML VIAL ONE; CEFAZOLIN 2G/50ML 0.9% NS 2 GM/50 ML BAG IV ONE
[2022-10-20] MEDS ORDERED: PROPOFOL 200 MG/20 ML VIAL IVP ONE (12:27)
[2022-10-20] MEDS ORDERED: SEVOFLURANE 250 ML LIQUID INH ONE (12:27)
[2022-10-20] MEDS ORDERED: fentaNYL 100 MCG/2 ML VIAL ONE (12:27)
[2022-10-20] MEDS ORDERED: ROCURONIUM 50 MG/5 ML VIAL ONE (12:28)
[2022-10-20] MEDS ORDERED: DEXAMETHASONE 4 MG/ML VIAL ONE (12:29)
[2022-10-20] MEDS ORDERED: ONDANSETRON 4 MG/2 ML VIAL ONE (12:29)
[2022-10-20] MEDS ORDERED: LACTATED RINGERS 1,000 ML IV ONE ×3 (12:33→15:19)
--- NOTE | 2022-10-20 12:51 | ANESTHESIA ---
Pre-Anesthesia VS, & Labs - Diagnosis right inguinal hernia - Procedure right inguinal hernia repair Vital Signs: Temp Pulse Resp BP Pulse Ox O2 Flow Rate 36.7 C 72 15 111/70 100 10/20/22 12:03 10/20/22 12:03 10/20/22 12:03 10/20/22 12:03 10/20/22 12:03 Height: 5 ft 10 in Weight (kg): 77 kg Body Mass Index: 24.3 BMI Classification: Normal - NPO >8 hours Home Medications and Allergies Tamsulosin [Flomax] 0.4 mg PO DAILY 11/10/21 Cholecalciferol (Vitamin D3) [Vitamin D3] 2,000 unit PO DAILY 12/15/21 Folic Acid 1 mg PO DAILY 12/15/21 HYDROcod/ACETAM 5/325 [[place] 5/325] 0.5 - 1 tab PO Q4HR PRN 02/04/22 Hyoscyamine [Levsin] 0.125 mg PO Q4HR PRN 02/04/22 Psyllium Husk [Metamucil] 1 tab PO BID PRN MDD titrate to effect 02/26/22 Acetaminophen [Pain Relief Extra Strength] 500 - 1,000 mg PO Q8HR PRN 07/12/22 Ferrous Gluconate [Fergon] 225 mg PO DAILY 07/12/22 Pantoprazole [Protonix] 40 mg PO DAILY 07/12/22 Potassium Chloride 20 meq PO DAILY 07/12/22 Allergies/Adverse Reactions: Allergies Allergy/AdvReac Type Severity Reaction Status Date / Time Chemo Allergy Unknown Uncoded 10/05/22 16:20 Anes History & Medical History - Anesthetic History Anesthesia Complications: reports: No previous complications Family history of Anesthesia Complications: Denies Family history of Malignant Hyperthermia: Denies - Medical History Cardiovascular: reports: None Pulmonary: reports: None Gastrointestinal: reports: Ulcers, Hemorrhoids, Cholelithiasis, Other Urinary: reports: Benign prostate hypertrophy Neuro: reports: None Musculoskeletal: reports: Osteoarthritis Endocrine/Autoimmune: reports: None Blood Disorders: reports: None Skin: reports: None Smoking Status: Never smoker Psychosocial: reports: No issues indicated History of Cancer?: Yes - Surgical History General: reports: Cholecystectomy, Bowel surgery, Colonoscopy, Other Cardiothoracic: reports: Other (port-a-cath placement, left chest) Exam General: Alert, Oriented x3, Cooperative, No acute distress Dental: WNL, Poor dentition Mouth Openin Fingerbreadth Neck Mobility: Limited Mallampati classification: II Thyromental Distance: 4-6 cm Respiratory: Lungs clear, Normal breath sounds, No respiratory distress, No accessory muscle use Cardiovascular: Regular rate, Normal S1, Normal S2, No murmurs Mental/Cognitive Status: Alert/Oriented X3, Normal for patient Cognitive Status: Within normal limits Plan Anesthesia Type: General Consent for Procedure(s) Verified and Reviewed: Yes Code Status: Attempt Resuscitation ASA classification: 3-Severe systemic disease Is this case an emergency?: No
[2022-10-20] MEDS ORDERED: BUPIVACAINE 0.5% PF 30 ML VIAL SUBQ ONE (13:25)
[2022-10-20] MEDS ORDERED: ePHEDrine 50 MG/ML VIAL IVP PRN (14:56)
[2022-10-20] MEDS ORDERED: HYDROmorphone 0.5 MG/0.5 ML SYRINGE IVP PRN ×2 (14:56→15:00)
[2022-10-20] MEDS ORDERED: MORPHINE 2 MG/ML CARPUJECT IVP PRN (14:56)
[2022-10-20] MEDS ORDERED: ONDANSETRON 4 MG/2 ML VIAL IVP PRN ×2 (14:56→15:00)
[2022-10-20] MEDS ORDERED: METOCLOPRAMIDE 10 MG/2 ML VIAL IVP PRN (14:56)
[2022-10-20] MEDS ORDERED: NALOXONE 0.4 MG/ML VIAL IVP PRN (14:56)
[2022-10-20] MEDS ORDERED: fentaNYL 100 MCG/2 ML VIAL IVP PRN (14:56)
[2022-10-20] MEDS ORDERED: ATROPINE ABBOJECT 1 MG/10 ML SYRINGE IVP PRN (14:56)
[2022-10-20] MEDS ORDERED: HYDROcod/ACETAM 5/325 MG TABLET PO PRN (15:00)
[2022-10-20] MEDS ORDERED: LACTATED RINGERS 1,000 ML IV SCH (15:00)
--- NOTE | 2022-10-20 15:04 | OPERATIVE REPORT ---
Operative Report - General Procedure Date: 10/20/22 Planned Procedure: Right inguinal herniorrhaphy Pre-Op Diagnosis: Right inguinal hernia Procedure Performed: Indirect right inguinal herniorrhaphy with mesh and excision cord lipoma Post Op Diagnosis: Indirect right inguinal hernia and cord lipoma - Procedure Note Primary Surgeon: Boone Randhawa MD Anesthesia Provider: Viviana Hickey supervised by Kathy Bentley CRNA Anesthesia Technique: General LMA, Local (30 mL of half percent Marcaine) IV Fluids (mL): 900 Estimated Blood Loss (mL): 5 Drain/Tube Type: Other Indications: Symptomatic right inguinal hernia Findings: Indirect inguinal hernia and cord lipoma Complications: None. - Other Other Information/Narrative: After verbal and written informed consent was obtained detailing the operation, the alternatives the operation including no operation, risks of infection, bleeding requiring transfusion with its risks, nerve injury, and and after I met with the patient confirming the surgery and the site of surgery, the patient was brought to the operative suite and placed supine on the operating table. Great care was taken to avoid pressure points to prevent pressure necrosis or nerve injury. Monitoring devices were applied along with TEDs and pneumatic compression stockings (to prevent DVT). The patient received preoperative antibiotics for surgical prophylaxis. Viviana Hickey supervised by Kathy Bentley CRNA sedated and anesthetized the patient for the entire procedure. The patient was prepped and draped in the usual sterile manner. With the patient draped my initials were clearly visible. A "time in" then confirmed that the patient was identified with 3 identifiers (name, date, and medical record number), the history and physical was updated and in the chart, the signed consent confirming the procedure was in the chart, the patient was in the correct position, the aforementioned prophylactic measures were in place or given, we had the correct personnel and equipment to complete the procedure and that anesthesia and the surgical team were given an opportunity to express any concerns. With the agreement of everyone in the room we proceeded with the operation. A standard inguinal incision was made and dissection was carried down to the external oblique aponeurosis using a combination of Metzenbaum scissors and Bovie electrocautery. The external oblique aponeurosis was cleared of overlying adherent tissue, and the external ring was delineated. The external oblique was incised with a scalpel and this incision was carried down to the external ring using Metzenbaum scissors. Care was taken not to injure the ilioinguinal nerve. Having expose the inguinal canal, the cord structures were from the canal using blunt dissection and a Manvel drain was placed around the cord structures at the level of the pubic tubercle. This Bryan drain was then used to retract the cord structures as needed. Adherent cremasteric muscle was dissected free from the cord using Bovie electrocautery. The cord was then explored using a combination of sharp and blunt dissection, and a sac was found. Dissection along the cord structures found a lipoma that was dissected back to the internal ring, ligated with 3-0 Vicryl, transected, and the stump cauterized and allowed to retract back into the abdomen. The hernia sac was high ligated with a 3-0 Vicryl and the redundant sac excised. The stump was cauterized and allowed to retract back into the abdominal cavity. A PerFix plug (Reference #[id number], lot number [id number], use by date 2026-03-18) inserted into the hernia defect. The plug was secured to the edge of the hernia defect using interrupted 2-0 PDS sutures. The PerFix onlay patch was then secured to the pubic tubercle with 2 0-PDS U stitches. The mesh was then secured to the conjoined tendon using interrupted 2-0 PDS sutures superiorly and inferiorly to the shelving edge of Poupart's ligament again using interrupted 2- 0 PDS sutures. The mesh was secured around the cord structures loosely thus creating a new internal ring. The Bryan drain was then removed. The wound was irrigated using sterile saline, and hemostasis was obtained using Bovie electrocautery. The incision the external oblique was approximated using 3-0 Vicryl in a running fashion thus reforming the external ring. The skin incision was approximated with 4-0 Monocryl in a subcuticular fashion. The skin was cleaned of its prep and Dermabond was applied. At this point a timeout was performed that confirmed that all counts were correct x2, the procedure that was performed, the blood loss, the IV fluids administered, the patient's condition, and any concerns of the operating team had. Having tolerated the procedure well, the patient was taken recovery room in good and stable condition. Gentle downward traction ensured the testes were well seated in the scrotum. The plan is for outpatient discharge when the patient is adequately recovered. This document was created in part using voice recognition technology. Because of the inherent limitations of the system, occasional same sounding word substitutions and grammatical errors do occur and persist despite proofreading. Please read this document for content. CPT 52105 herniorrhaphy CPT 97189 excision cord lipoma
--- NOTE | 2022-10-20 16:01 | ANESTHESIA POST OP EVALUATION ---
Anesthesia Post Eval - Post Anesthesia Eval Vitals: Last Vital Signs Temp 36.9 C 10/20/22 15:37 Pulse 75 10/20/22 15:37 Resp 14 10/20/22 15:37 BP 133/69 H 10/20/22 15:37 Pulse Ox 98 10/20/22 15:37 O2 Flow Rate CV Function Including HR & BP: Stable Pain Control: Satisfactory Nausea & Vomiting: Negative Mental Status: Baseline Respiratory Status: Airway Patent Hydration Status: Satisfactory Anesthesia Complications: None
[2022-10-20 16:05] VITALS: BP 132/77
== END 2022-10-20 11:37 | disposition home or self-care (01) ==
LOC: SDS 11:36
PROVIDERS: ATTEND Surgery
DX: K40.90 Unilateral inguinal hernia, without obstruction or gangrene, not specified as recurrent (principal); D17.6 Benign lipomatous neoplasm of spermatic cord; R22.0 Localized swelling, mass and lump, head; Z90.49 Acquired absence of other specified parts of digestive tract; Z87.19 Personal history of other diseases of the digestive system; Z93.3 Colostomy status
CPT/HCPCS: 49505; 55520; C1781; J0690; J3490; J7120

== ENCOUNTER 2023-01-20 07:56 | Observation (INO) | payer MEDICARE ==
--- NOTE | 2023-01-20 08:13 | ED Physician Documentation ---
PD HPI NVD - Stated complaint Stated Complaint: VOMITTING - History obtained from History obtained from: Patient - History of Present Illness Timing - onset: How many days ago (2) Timing - duration: Days (2) Timing - details: Abrupt onset (The patient states he had an excess amount of output into his ostomy 2 days ago with 4 5 good movements and then none subsequently. From yesterday into today he has abdominal distention, nausea and vomiting and no output from the ostomy. Concern for obstruction.) Associated symptoms: Abdominal pain, Loss of appetite (just since yesterday). No: Fever, Hematemesis Contributing factors: Other (prior colon CA with mets, had resection and colostomy 2010. Has had a prior SBO resolved without surgery.). No: Sick contact, Bad food Similar symptoms before: Diagnosis (SBO due to adhesions, treated nonoperatively.) Recently seen: Clinic ([facility]. Has appt late this month to decide if to start immunotherapy for his colon CA.) Review of Systems Constitutional: denies: Fever, Chills Nose: denies: Rhinorrhea / runny nose, Congestion Throat: denies: Sore throat Respiratory: denies: Cough GI: reports: Abdominal Pain, Abdominal Swelling, Nausea, Vomiting. denies: Diarrhea (no output in ostomy since yesterday AM.) Neurologic: reports: Generalized weakness. denies: Near syncope, Altered mental status, Headache PD PAST MEDICAL HISTORY - Past Medical History Cardiovascular: None Respiratory: None Neuro: None Endocrine/Autoimmune: None GI: Ulcers, Hemorrhoids, Cholelithiasis, Other (colon cancer with resection, chemo and ostomy. Seeing Oncology later this month to determine if getting Immunotherapy for tumor. ) : Benign prostate hypertrophy HEENT: Chronic vision loss, Chronic hearing loss Psych: None Musculoskeletal: Osteoarthritis Derm: None - Past Surgical History Past Surgical History: Yes General: Cholecystectomy, Bowel surgery, Colonoscopy, Other Cardiovascular: Other (port-a-cath placement, left chest) - Present Medications Home Medications: Ambulatory Orders Medication Instructions Recorded Confirmed Ferrous Gluconate [Fergon] 324 mg PO DAILYWM #30 tablet 10/22/21 01/20/23 Multivitamin W/Minerals [Theragran 1 tab PO DAILYWM #30 tablet 10/22/21 01/20/23 M] Tamsulosin [Flomax] 0.4 mg PO BID 11/10/21 01/20/23 Acetaminophen [Pain Relief Extra 500 - 1,000 mg PO Q8HR PRN 07/12/22 01/20/23 Strength] Pantoprazole [Protonix] 40 mg PO QPM 07/12/22 01/20/23 Potassium Chloride 20 meq PO DAILY 07/12/22 01/20/23 Glucos Sul 2Kcl/MSM/Chond/C/Mn 1 each PO BID 01/20/23 01/20/23 [Glucosamine Chondroitin Cap] Ibuprofen [Advil] 400 mg PO DAILY PRN 01/20/23 01/20/23 Zinc Sulfate 220 mg PO DAILY 01/20/23 01/20/23 - Allergies Allergies/Adverse Reactions: Allergies Allergy/AdvReac Type Severity Reaction Status Date / Time Chemo Allergy Unknown Uncoded 10/05/22 16:20 - Social History Does the pt smoke?: No Smoking Status: Never smoker Does the pt drink ETOH?: No Does the pt have substance abuse?: No - Immunizations Immunizations are current?: Yes Immunizations: TDAP >10years/unknown - POLST Patient has POLST: Yes POLST Status: Full Code PD ED PE NORMAL - Vitals Vital signs reviewed: Yes - General General: Alert and oriented X 3, Well developed/nourished, Other (appears uncomfortable due to abd pain. Colostomy noted with empty bag. ) - Neck Neck: Supple, no meningeal sign, No adenopathy, Other (lipoma feeling mass right lateral neck subcutaneous, not tender. ) - Cardiac Cardiac: RRR, No murmur - Respiratory Respiratory: Clear bilaterally - Abdomen Abdomen: Other (Tender diffusely with distention. He is tender to percussion. Main tenderness to palpation is upper abdomen. Bowel sounds are diminished significantly.). No: Normal bowel sounds (decreased diffusely. ) Results - Vitals Vitals: Vital Signs - 24 hr 01/20/23 01/20/23 01/20/23 08:12 08:29 10:22 Temperature 36.7 C Heart Rate 95 94 80 Respiratory 18 18 18 Rate Blood Pressure 135/85 H 119/66 O2 Saturation 99 98 96 Oxygen O2 Source Room air - Labs Labs: Laboratory Tests 01/20/23 01/20/23 01/20/23 08:05 08:05 08:05 WBC 5.1 RBC 4.44 L Hgb 14.6 Hct 43.2 MCV 97.3 H MCH 32.9 H MCHC 33.8 RDW 13.2 Plt Count 185 MPV 9.0 Neut # (Auto) 4.5 Lymph # (Auto) 0.4 L Latimer # (Auto) 0.2 Eos # (Auto) 0.0 Baso # (Auto) 0.0 Absolute Nucleated RBC 0.00 Nucleated RBC % 0.0 Sodium 142 Potassium 3.7 Chloride 101 Carbon Dioxide 28 Anion Gap 13.0 BUN 25 H Creatinine 1.1 Estimated GFR (MDRD) 65 L Glucose 143 H Lactic Acid 1.6 Calcium 9.9 Magnesium 2.0 Total Bilirubin 1.0 AST 22 ALT 21 Alkaline Phosphatase 129 H Total Protein 8.7 H Albumin 4.0 Globulin 4.7 H Albumin/Globulin Ratio 0.9 L Lipase 23 - Rads (name of study) abd/pelvic CT Radiology: Prelim report reviewed, EMP read indepedently (There is dilation of the proximal small bowel and air-fluid levels with transition in the mid small bowel consistent with bowel obstruction. Obstruction does not appear to be at the level of the ostomy.), See rad report PD Medical Decision Making - ED course Complexity details: reviewed results, re-evaluated patient, considered differential (Main concern is for a small bowel obstruction given the distention nausea vomiting and abdominal pain associated with no output from the ostomy. Other considerations will be evaluated as well but primary focus will be nausea and pain medicine as well as a CT scan.), d/w computer consultant (I discussed this case with Dr. Alcantar who is on-call for surgery. He will see the patient in consultation. Refers to hospitalist service. I talked with Dr. Aldrich who is the hospitalist and accepts the patient to her service.) Reviewed Lab Results: CT scan is appearing consistent with small bowel obstruction. The transition point seems mid small bowel and not obstructed at the level of the ostomy. Initial treatment will target conservative pain medicine fluids and nausea medicine and time to see if it resolves. Departure - Departure Disposition: [facility] DC/Xfer Clinical Impression: Small bowel obstruction due to adhesions, Vomiting, Abdominal pain Condition: Stable Record reviewed to determine appropriate education?: Yes Discharge Date/Time: 01/20/23 13:07
[2023-01-20] MEDS ORDERED: HYDROmorphone 1 MG/ML CARPUJECT IVP STA (08:46)
[2023-01-20] MEDS ORDERED: KETOROLAC 15 MG/ML VIAL IVP STA (08:46)
[2023-01-20] MEDS ORDERED: SODIUM CHLORIDE 0.9% 1,000 ML IV STA (08:46)
[2023-01-20] MEDS ORDERED: ONDANSETRON 4 MG/2 ML VIAL IVP STA (08:46)
[2023-01-20 09:01] LABS: BASOPHILS % (AUTO) 0.2 %; EOSINOPHILS % (AUTO) 0.6 %; HCT - HEMATOCRIT 43.2 % (42.0-52.0); HGB - HEMOGLOBIN 14.6 g/dL (14.0-18.0); LYMPHOCYTES # (AUTO) 0.4 10^3/uL (1.5-3.5); MEAN CORPUSCULAR HEMOGLOBIN 32.9 pg (27.0-31.0); MEAN CORPUSCULAR HGB CONC 33.8 g/dL (32.0-36.0); MEAN CORPUSCULAR VOLUME 97.3 fL (80.0-94.0); MONOCYTES # (AUTO) 0.2 10^3/uL (0.0-1.0); MONOCYTES % (AUTO) 4.3 %; NEUTROPHILS # (AUTO) 4.5 10^3/uL (1.5-6.6); NEUTROPHILS % (AUTO) 87.5 %; PLT - PLATELET COUNT 185 10^3/uL (130-450); RED BLOOD COUNT 4.44 10^6/uL (4.70-6.10); RED CELL DISTRIBUTION WIDTH 13.2 % (12.0-15.0); WHITE BLOOD COUNT 5.1 x10^3/uL (4.8-10.8)
[2023-01-20 09:15] LABS: ALBUMIN/GLOBULIN RATIO 0.9 (1.0-2.2); CALCIUM 9.9 mg/dL (8.5-10.3); CREATININE 1.1 mg/dL (0.6-1.2); POTASSIUM 3.7 mmol/L (3.5-5.0); TOTAL PROTEIN 8.7 g/dL (6.7-8.2)
[2023-01-20] MEDS ORDERED: iohexoL-300 100 ML VIAL ONE (09:45)
[2023-01-20] MEDS ORDERED: iohexoL-300 100 ML VIAL IVP ONE (10:25)
--- NOTE | 2023-01-20 10:40 | CT Report ---
PROCEDURE: ABDOMEN/PELVIS W INDICATIONS: vomiting/distended abd. CONTRAST: 100ml Omnipaque 300 TECHNIQUE: After the administration of intravenous contrast, 5 mm thick sections acquired from the diaphragms to the symphysis. 5 mm thick coronal and sagittal reformats were acquired. For radiation dose reducti on, the following was used: automated exposure control, adjustment of mA and/or kV according to alistair ent size. COMPARISON: None. FINDINGS: Image quality: Excellent. ABDOMEN: Lung bases: A 9 mm pulmonary nodule is present at the left lung base (series 5/image 21). This is unc hanged from the study dated 09/28/2022, but is not visualized on more distant comparison studies. No a cute airspace opacities. Heart is normal size. There is a small hiatal hernia and the distal esophagu s appears fluid-filled. Solid organs: Liver and spleen are normal in size and enhancement. Low-density cystic lesion in the spleen suggesting splenic cyst. Gallbladder surgically absent. Biliary system is non dilated. Pancr eas enhances normally. No right adrenal nodules. There is a low-density left adrenal gland nodule pascual ggesting the presence of an adrenal adenoma. Kidneys demonstrate normal size and enhancement, withou t hydronephrosis. Peritoneum and bowel: The stomach is partially fluid and gas-filled. The antrum is decompressed. Ther e is marked dilatation of the duodenum and the proximal jejunum. A tapered narrowing is present withi n the anterior/mid pelvis (series 2/image 59). The downstream small bowel demonstrates normal course and caliber. The appendix is thin-walled and gas-filled. The colon demonstrates normal course and rocio iber. Patient is status post left hemicolectomy. Left colostomy is unremarkable. No free peritoneal f luid or pneumoperitoneum. Nodes and vessels: No retroperitoneal or mesenteric adenopathy by size criteria. Aorta and inferior vena cava are normal in size. Miscellaneous: No ventral hernias. PELVIS: Genitourinary: Bladder wall thickness is normal. Miscellaneous: No inguinal hernias or adenopathy. Bones: No suspicious bony lesions. No vertebral body compression fractures. IMPRESSION: 1. Left 9 mm pulmonary nodule. 3-6 month follow-up recommended. 2. Proximal dilatation of the small bowel suggesting partial small bowel obstruction. Tapered narrowi ng is present at the transition suggesting an internal hernia. 3. Normal appendix. Reviewed by: Maegan Martinez MD on 01/20/2023 10:39 AM PST Approved by: Maegan Martinez MD on 01/20/2023 10:39 AM PST Station ID: [id number]
[2023-01-20] MEDS ORDERED: LACTATED RINGERS 1,000 ML IV STA (11:33)
[2023-01-20] MEDS ORDERED: ONDANSETRON ODT 4 MG TABLET TL PRN (11:52)
[2023-01-20] MEDS ORDERED: MORPHINE 2 MG/ML CARPUJECT IVP PRN (11:52)
[2023-01-20] MEDS ORDERED: SODIUM CHLORIDE FLUSH 0.9% 10 ML SYRINGE IVP PRN (11:52)
[2023-01-20] MEDS ORDERED: ONDANSETRON 4 MG/2 ML VIAL IVP PRN (11:52)
--- NOTE | 2023-01-20 13:49 | PHARMACY PROGRESS NOTE ---
- Best Possible Medication History Admit Date and Time: 01/20/23 1152 Processed by: Pharmacy Medication History completed: Yes Patient Interview: Completed Secondary Source(s): Pharmacy records, Insurance records As the person ultimately responsible for medication therapy, providers are able to order a medication from an existing home medication list in [facility] via the "Reconcile Routine" prior to Confirmation of that medication by linux support engineer. Such practice is discouraged except when the physician, in their clinical judgment, deems that a medical need exists for a medication without regard to previous use.
[2023-01-20] MEDS: SODIUM CHLORIDE 0.9% 1,000 ML IV SCH (14:29)
--- NOTE | 2023-01-20 15:51 | CONSULTATION NOTE ---
Referring Provider Consult Date: 01/20/23 Chief Complaint - Chief Complaint Chief Complaint: nausea and vomiting all day yesterday History of Present Illness - History Obtained From Records Reviewed: yes History obtained from: pt Exam Limitations: none - History of Present Illness HPI Comment/Other: history rectal cancer and colostomy. doing well until yesterday when abdomen became very distended and he threw up many times. feeling much improved this afternoon. denies pain and nausea at this time. no stoma output for 24 hours History - Past Medical History Cardiovascular: reports: None Respiratory: reports: None Neuro: reports: None Endocrine/Autoimmune: reports: None GI: reports: Ulcers, Hemorrhoids, Cholelithiasis, Other (colon cancer with re section, chemo and ostomy. Seeing Oncology later this month to determine if getting Immunotherapy for tumor. ) : reports: Benign prostate hypertrophy HEENT: reports: Chronic vision loss, Chronic hearing loss Psych: reports: None Musculoskeletal: reports: Osteoarthritis Derm: reports: None MRSA Hx?: No - Past Surgical History General: reports: Cholecystectomy, Bowel surgery, Colonoscopy, Other Cardiovascular: reports: Other (port-a-cath placement, left chest) - Family & Social History Family History Comment/Other: Mother at age 93. Had a stroke. Also had a history of bowel obstruction. Dad at age 85 of a heart attack, also had a stroke. 1 sister has had uterine cancer. 1 brother has had prostate cancer. Daughter has gallbladder disease. Son has hemorrhoids Living Situation: With family Social History Notes: Never smoked, rarely drinks alcohol. He is retired [employer]. Since his 's , he lives with his oldest son. - Substance History Use: Uses substance without health or social issues: NONE - POLST Patient has POLST: Yes POLST Status: Full Code Meds/Allgy - Home Medications Home Medications: Ambulatory Orders Medication Instructions Recorded Confirmed Ferrous Gluconate [Fergon] 324 mg PO DAILYWM #30 tablet 10/22/21 01/20/23 Multivitamin W/Minerals [Theragran 1 tab PO DAILYWM #30 tablet 10/22/21 01/20/23 M] Tamsulosin [Flomax] 0.4 mg PO BID 11/10/21 01/20/23 Acetaminophen [Pain Relief Extra 500 - 1,000 mg PO Q8HR PRN 07/12/22 01/20/23 Strength] Pantoprazole [Protonix] 40 mg PO QPM 07/12/22 01/20/23 Potassium Chloride 20 meq PO DAILY 07/12/22 01/20/23 Glucos Sul 2Kcl/MSM/Chond/C/Mn 1 each PO BID 01/20/23 01/20/23 [Glucosamine Chondroitin Cap] Ibuprofen [Advil] 400 mg PO DAILY PRN 01/20/23 01/20/23 Zinc Sulfate 220 mg PO DAILY 01/20/23 01/20/23 - Allergies Allergies/Adverse Reactions: Allergies Allergy/AdvReac Type Severity Reaction Status Date / Time Chemo Allergy Unknown Uncoded 10/05/22 16:20 Exam - Vital Signs Reviewed Vital Signs: Yes Vital Signs: Vital Signs x48h Temp Pulse Pulse Resp BP BP BP 01/20/23 13:08 36.4 C L 89 20 136/67 H 136/67 H 01/20/23 12:04 78 18 133/73 H 01/20/23 10:22 80 18 119/66 01/20/23 08:29 94 18 01/20/23 08:12 36.7 C 95 18 135/85 H Pulse Ox 01/20/23 13:08 100 01/20/23 12:04 98 01/20/23 10:22 96 01/20/23 08:29 98 01/20/23 08:12 99 - Physical Exam General Appearance: positive: No acute distress, Alert Eyes Bilateral: positive: PERRL, No scleral icterus ENT: positive: No signs of dehydration Neck: positive: No JVD, Trachea midline Respiratory: positive: No respiratory distress Abdomen: positive: Non-tender, Other (minimal distension. he states no new stool or air in the stoma bag for 24 hours) Neurologic/Psychiatric: positive: Oriented x3 Conclusion/Plan - Problem List (1) Small bowel obstruction due to adhesions Conclusion/Plan: he is feeling much improved. agree with care and plan. will follow - Lab Results Fish Bones: 01/20/23 08:05 01/20/23 08:05
--- NOTE | 2023-01-20 16:08 | HISTORY & PHYSICAL EXAMINATION ---
Chief Complaint - Chief Complaint Chief Complaint: Nausea, vomiting and abdominal pain. History of Present Illness - Admitted From Admitted From:: [facility] Emergency Department - History Obtained From Records Reviewed: ER Physician History obtained from: patient Exam Limitations: none - History of Present Illness HPI Comment/Other: Patient is a delightful 77 year old man was admitted from emergency department after vomiting profusely and nausea since yesterday afternoon. Patient believes it may be due to a particularly large meal prepared by his son. Patient has a history of rectal cancer that resulted in low anterior resection and permanent ostomy bag placed on 05/28/2022, as well as recent right inguinal hernia. Patient confirms loss of appetite since yesterday, nausea, distention, and right upper abdominal pain. Patient denies headache, hematemesis, chest pain, fever, shortness of breath and diarrhea. Patient has not taken medication to alleviate symptoms and nausea has progressively gotten worse until admission to the hospital. Patient reports feeling better and not vomiting since ER visit. Patients history of rectal cancer is an unfortunate one. Patient was not tolerating chemotherapy well and did not finish treatment. Last chemo treatment was 09/10. Patient blames hearing loss and loss of sensation to feet and hands to chemo. Patient also received radiation therapy for rectal cancer. Patients last radiation therapy was January,. Unfortunately patient was found with lung mets that was confirmed with biopsy 05/07/2022 and is being followed. Keytruda may be used if patient has progression of disease. Patient has a strong history of cancer in his family with his mother having colon cancer and his brother having testicular cancer. History - Past Medical History Cardiovascular: reports: None Respiratory: reports: None Neuro: reports: None Endocrine/Autoimmune: reports: None GI: reports: Ulcers, Hemorrhoids, Cholelithiasis, Other (colon cancer with resection, chemo and ostomy. Seeing Oncology later this month to determine if getting Immunotherapy for tumor. ) : reports: Benign prostate hypertrophy HEENT: reports: Chronic vision loss, Chronic hearing loss Psych: reports: None Musculoskeletal: reports: Osteoarthritis Derm: reports: None MRSA Hx?: No - Past Surgical History General: reports: Cholecystectomy, Bowel surgery, Colonoscopy, Other Cardiovascular: reports: Other (port-a-cath placement, left chest) - Family & Social History Family History Comment/Other: Mother at age 93. Had a stroke. Also had a history of bowel obstruction. Dad at age 85 of a heart attack, also had a stroke. 1 sister has had uterine cancer. 1 brother has had prostate cancer. Daughter has gallbladder disease. Son has hemorrhoids Living Situation: With family Social History Notes: Never smoked, rarely drinks alcohol. 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 Since his 's , he lives with his oldest son. - Substance History Use: Uses substance without health or social issues: NONE - POLST Patient has POLST: Yes POLST Status: Full Code Meds/Allgy - Home Medications Home Medications: Ambulatory Orders Medication Instructions Recorded Confirmed Ferrous Gluconate [Fergon] 324 mg PO DAILYWM #30 tablet 10/22/21 01/20/23 Multivitamin W/Minerals [Theragran 1 tab PO DAILYWM #30 tablet 10/22/21 01/20/23 M] Tamsulosin [Flomax] 0.4 mg PO BID 11/10/21 01/20/23 Acetaminophen [Pain Relief Extra 500 - 1,000 mg PO Q8HR PRN 07/12/22 01/20/23 Strength] Pantoprazole [Protonix] 40 mg PO QPM 07/12/22 01/20/23 Potassium Chloride 20 meq PO DAILY 07/12/22 01/20/23 Glucos Sul 2Kcl/MSM/Chond/C/Mn 1 each PO BID 01/20/23 01/20/23 [Glucosamine Chondroitin Cap] Ibuprofen [Advil] 400 mg PO DAILY PRN 01/20/23 01/20/23 Zinc Sulfate 220 mg PO DAILY 01/20/23 01/20/23 - Allergies Allergies/Adverse Reactions: Allergies Allergy/AdvReac Type Severity Reaction Status Date / Time Chemo Allergy Unknown Uncoded 10/05/22 16:20 Review of Systems - Constitutional Constitutional: reports: Poor appetite. denies: Fatigue, Fever, Chills - Eyes Eyes: denies: Pain, Blurred vision - Ears, Nose & Throat Ears, Nose & Throat: denies: Ear pain, Sore throat, Hoarseness - Cardiovascular Cariovascular: denies: Irregular heart rate, Palpitations, Chest pain, Edema - Respiratory Respiratory: denies: Cough, Sputum production, SOB at rest - Gastrointestinal Gastrointestinal: reports: Abdominal pain, Abdominal distention (Improved on admission), Constipation, Change in bowel habits, Nausea, Vomiting. denies: Coffee grounds emesis - Genitourinary Genitourinary: denies: Dysuria, Frequency, Urgency - Musculoskeletal Musculoskeletal: reports: Joint pain (Osteoarthritis on hands) - Integumentary Integumentary: denies: Rash, Pruritis - Neurological Neurological: reports: Memory problems (Memory problems since chemo per patient.). denies: Headache, Dizziness - Psychiatric Psychiatric: denies: Anxiety - Hematologic/Lymphatic Hematologic/Lymphatic: denies: Anemia, Bruising, Petechiae Prior Level of Functionality: Patient's son lives with patient and help patient with day to day tasks. Exam - Vital Signs Reviewed Vital Signs: Yes Vital Signs: Vital Signs x48h Temp Pulse Pulse Resp BP BP BP 01/20/23 13:08 36.4 C L 89 20 136/67 H 136/67 H 01/20/23 12:04 78 18 133/73 H 01/20/23 10:22 80 18 119/66 01/20/23 08:29 94 18 01/20/23 08:12 36.7 C 95 18 135/85 H Pulse Ox 01/20/23 13:08 100 01/20/23 12:04 98 01/20/23 10:22 96 01/20/23 08:29 98 01/20/23 08:12 99 - Physical Exam General Appearance: positive: Alert, Mild distress Eyes Bilateral: positive: Normal inspection, PERRL, EOMI ENT: positive: ENT inspection nml, Pharynx nml, No signs of dehydration Neck: positive: Nml inspection, Thyroid nml, No JVD, Trachea midline, Thyro megaly Respiratory: positive: Chest non-tender, No respiratory distress, Breath sounds nml Cardiovascular: positive: Regular rate & rhythm, No murmur, No gallop Abdomen: positive: Tenderness, Other (Colostomy bag at LLQ. Mild distention per patient.) Rectal: positive: Other (History of rectal cancer.) Back: positive: Nml inspection Skin: positive: Color nml, No rash, Warm Extremities: positive: Non-tender, Full ROM, Nml appearance Neurologic/Psychiatric: positive: Oriented x3, CN's nml (2-12), Motor nml, Sensation nml, Mood/affect nml Conclusion/Plan - Problem List (1) Small bowel obstruction Conclusion/Plan: Patients history of ostomy bag placement and right inguinal hernia repair make obstruction due to adhesions the most likely culprit. However, due to patients history of rectal cancer with lung mets, carcinomatosis has also been considered. Due to patients abrupt presentation of symptoms, intussusception was also considered. Plan Continue to monitor patients ostomy bag for bowel movements. If patient does not improve in 2-3 days, consult with surgical team for further treatment. Continue IV fluids Consider pain medication for pain relief, avoiding opioids due to tendency for constipation. (2) Abdominal pain Conclusion/Plan: Patient states that his stomach has mild distention and abdominal pain that has improved since admission. Deep palpation to upper quadrants produced mild pain. Patients ostomy bag will be monitored for signs of infection. Patient's history of abdominal surgery makes adhesion the most likely culprit. Plan Continue patient on IV fluids and IV morphine Continue to monitor ostomy bag for bowel movements If patient does not improve within 2-3 days, consult surgical team for further treatment. Qualifiers: Abdominal location: upper abdomen, unspecified Qualified Code(s): R10.10 - Upper abdominal pain, unspecified (3) Vomiting Conclusion/Plan: Patient states that he had vomited several times in since yesterday afternoon. Patient did not feel the need to vomit during visit and is feeling better since Zofran was given at 1152. Plan Continue Zofran medication every 6 hours as needed Continue IV fluids for hydration Check CMP every 24 hours for electrolyte abnormalities. Qualifiers: Vomiting type: bilious vomiting Nausea presence: with nausea Qualified Code(s): R11.14 - Bilious vomiting - Lab Results Fish Bones: 01/20/23 08:05 01/20/23 08:05
[2023-01-20] MEDS: SODIUM CHLORIDE FLUSH 0.9% 10 ML SYRINGE IVP SCH (17:07)
[2023-01-20] MEDS: PANTOPRAZOLE 40 MG VIAL IVP SCH (18:46)
[2023-01-21] MEDS: SODIUM CHLORIDE 0.9% 1,000 ML IV SCH ×2 (00:30→10:44)
[2023-01-21] MEDS: SODIUM CHLORIDE FLUSH 0.9% 10 ML SYRINGE IVP SCH ×3 (00:30→16:14)
[2023-01-21 05:27] LABS: BASOPHILS % (AUTO) 0.2 %; EOSINOPHILS # (AUTO) 0.2 10^3/uL (0.0-0.7); EOSINOPHILS % (AUTO) 5.4 %; HCT - HEMATOCRIT 35.6 % (42.0-52.0); HGB - HEMOGLOBIN 11.9 g/dL (14.0-18.0); LYMPHOCYTES # (AUTO) 0.6 10^3/uL (1.5-3.5); LYMPHOCYTES % (AUTO) 12.9 %; MEAN CORPUSCULAR HEMOGLOBIN 33.7 pg (27.0-31.0); MEAN CORPUSCULAR HGB CONC 33.4 g/dL (32.0-36.0); MEAN CORPUSCULAR VOLUME 100.8 fL (80.0-94.0); MONOCYTES # (AUTO) 0.4 10^3/uL (0.0-1.0); MONOCYTES % (AUTO) 10.4 %; NEUTROPHILS % (AUTO) 70.9 %; PLT - PLATELET COUNT 141 10^3/uL (130-450); RED BLOOD COUNT 3.53 10^6/uL (4.70-6.10); RED CELL DISTRIBUTION WIDTH 13.7 % (12.0-15.0); WHITE BLOOD COUNT 4.3 x10^3/uL (4.8-10.8)
[2023-01-21 05:31] LABS: CALCIUM 8.3 mg/dL (8.5-10.3); CREATININE 0.9 mg/dL (0.6-1.2); POTASSIUM 3.4 mmol/L (3.5-5.0)
[2023-01-21] MEDS: PANTOPRAZOLE 40 MG VIAL IVP SCH (07:23)
--- NOTE | 2023-01-21 08:00 | PROVIDER PROGRESS NOTE ---
Progress Note General Surgery Morning Rounds Note Hospital Day # 2 Assessment: 1) SBO - partial, resolved Recommendation 1) Clear liquid diet. Advance as tolerated 2) May be discharged to home when tolerating a diet (No nausea, vomiting; Ostomy functional) <><><><><><><><><><><><><><> S: Feels great; no nausea, vomiting, abdominal pain or distension; Asking for a general diet O: VSS; Lungs clear; Abdomen is soft, non tender, no distension; Ostomy functional 400-600 ml of output from the ostomy last evening Pain Level: None Labs: WBC 4.3; Hgb 11.9; Hct 35.6 K 3.4; Cr 0.9 Mehdi Nguyen MD General Surgery Service
[2023-01-21] MEDS ORDERED: ENOXAPARIN 40 MG/0.4 ML SYRINGE SUBQ SCH (09:00)
--- NOTE | 2023-01-21 11:23 | DISCHARGE SUMMARY ---
"Discharge Summary Admit Date: 01/20/23 Discharge Date: 01/21/23 Discharging Provider: Primary Care Provider: VICTORIA Silverio Code Status: Attempt Resuscitation Condition at Discharge: Good Discharge Disposition: 01 Home, Self Care Discharge Facility Name: [facility] - DIAGNOSES Admission Diagnoses: 1. Small bowel obstruction 2. Abdominal Pain 3. Vomiting Discharge Diagnoses with Status of Each Condition: 1. Small bowel obstruction (partial)- Resolved, patient reports he has filled 4 ostomy bags overnight. Patient reports flatulence and resolved distention. Patient is tolerated liquid diet well. Patient also tolerated a regular diet which consisted of egg salad sandwich, cranberry juice, tea, and diced pears. Patient does not report nausea, vomiting, abdominal pain, and recently emptied ostomy bag at approximately 1640. 2. Abdominal pain- Resolved, patient is no longer complaining of upper abdominal pain. Patient received his last dose of morphine at 1152 yesterday and has since, not requested any pain medication. Patient abdomen is no longer distended and patient has regained appetite. 3. Vomiting- Resolved, patients last vomiting episode was prior to admission and during ED visit. Patient was given Zofran for emesis and fluids were given via IV to prevent electrolyte imbalances. Consider giving patient Zofran to take home prn. 4. History of rectal cancer with low anterior resection. - HPI History of Present Illness: Patient is a delightful 77 year old man was admitted from emergency department after vomiting profusely and nausea since yesterday afternoon. Patient believes it may be due to a particularly large meal prepared by his son. Patient has a history of rectal cancer that resulted in low anterior resection and permanent ostomy bag placed on 05/28/2022, as well as recent right inguinal hernia. Patient confirms loss of appetite since yesterday, nausea, distention, and right upper abdominal pain. Patient denies headache, hematemesis, chest pain, fever, shortness of breath and diarrhea. Patient has not taken medication to alleviate symptoms and nausea has progressively gotten worse until admission to the hospital. Patient reports feeling better and not vomiting since ER visit. Patients history of rectal cancer is an unfortunate one. Patient was not tolerating chemotherapy well and did not finish treatment. Last chemo treatment was 09/10. Patient blames hearing loss and loss of sensation to feet and hands to chemo. Patient also received radiation therapy for rectal cancer. Patients last radiation therapy was January,. Unfortunately patient was found with lung mets that was confirmed with biopsy 05/07/2022 and is being followed. Keytruda may be used if patient has progression of disease. Patient has a strong history of cancer in his family with his mother having colon cancer and his brother having testicular cancer. History - Past Medical History Cardiovascular: reports: None Respiratory: reports: None Neuro: reports: None Endocrine/Autoimmune: reports: None GI: reports: Ulcers, Hemorrhoids, Cholelithiasis, Other (colon cancer with resection, chemo and ostomy. Seeing Oncology later this month to determine if getting Immunotherapy for tumor. ) : reports: Benign prostate hypertrophy HEENT: reports: Chronic vision loss, Chronic hearing loss Psych: reports: None Musculoskeletal: reports: Osteoarthritis Derm: reports: None MRSA Hx?: No - Past Surgical History General: reports: Cholecystectomy, Bowel surgery, Colonoscopy, Other Cardiovascular: reports: Other (port-a-cath placement, left chest) - CONSULTS | PROCEDURES Consultations: Consulted with general surgery Procedures: None - HOSPITAL COURSE Hospital Course: 1. Small bowel obstruction- Symptoms have resolved since admission. Patient had filled 4 ostomy bags before visit and reports flatulences. Patient denies gastric distention and abdominal pain. General surgery was consulted in case patient did not have bowel movements in 2-3 days, however, since patient has had bowel movements, further expolaration is not considered necessary. Patient to follow up with PCP and oncology appointment in January. 2. Abdominal pain- Patients abdominal pain has resolved since admission. Patient was given IV morphine yesterday at 1152 and patient has not requested pain medication since. Patient denies gastric distention, fever, chills, and fatigue. 3. Vomiting- Patient vomiting has resolved since admission. Patient reports last episode during ER visit. Patient reports Zofran medication given to him has had satifactory results. To prevent electrolyte abnormalities, patient given IV normal saline. - ALLERGIES Allergies/Adverse Reactions: Allergies Allergy/AdvReac Type Severity Reaction Status Date / Time Chemo Allergy Unknown Uncoded 10/05/22 16:20 - MEDICATIONS Home Medications: Ambulatory Orders Medication Instructions Recorded Confirmed Ferrous Gluconate [Fergon] 324 mg PO DAILYWM #30 tablet 10/22/21 01/20/23 Multivitamin W/Minerals [Theragran 1 tab PO DAILYWM #30 tablet 10/22/21 01/20/23 M] Tamsulosin [Flomax] 0.4 mg PO BID 11/10/21 01/20/23 Acetaminophen [Pain Relief Extra 500 - 1,000 mg PO Q8HR PRN 07/12/22 01/20/23 Strength] Pantoprazole [Protonix] 40 mg PO QPM 07/12/22 01/20/23 Potassium Chloride 20 meq PO DAILY 07/12/22 01/20/23 Glucos Sul 2Kcl/MSM/Chond/C/Mn 1 each PO BID 01/20/23 01/20/23 [Glucosamine Chondroitin Cap] Ibuprofen [Advil] 400 mg PO DAILY PRN 01/20/23 01/20/23 Zinc Sulfate 220 mg PO DAILY 01/20/23 01/20/23 Ondansetron Odt [Zofran Odt] 4 mg TL Q6HR PRN #30 tab 01/21/23 - PHYSICAL EXAM AT DISCHARGE General Appearance: positive: No acute distress, Alert. negative: Mild distress, Anxious Eyes Bilateral: positive: Normal inspection, PERRL, EOMI ENT: positive: ENT inspection nml, Pharynx nml, No signs of dehydration Neck: positive: Nml inspection, Thyroid nml, No JVD Respiratory: positive: Chest non-tender, No respiratory distress, Breath sounds nml Cardiovascular: positive: Regular rate & rhythm, No murmur, No gallop Abdomen: positive: Non-tender, No organomegaly, Nml bowel sounds, No distention, Other (Ostomy bag on left lateral abdomen.). negative: Tenderness Back: positive: Nml inspection Skin: positive: Color nml, No rash, Warm Extremities: positive: Non-tender, Full ROM, Nml appearance Neurologic/Psychiatric: positive: Oriented x3, CN's nml (2-12), Motor nml, Sensation nml, Mood/affect nml - LABS Result Diagrams: 01/21/23 05:10 01/21/23 05:10 - SEPSIS Current Stage of Sepsis: Ruled out - FOLLOW UP Follow Up: Patient to follow up with PCP within 2 weeks. Ensure keeping March appointment with oncologist. - TIME SPENT Time Spent in Discharge (Minutes): 35"
--- NOTE | 2023-01-21 16:12 | XRAY Report ---
PROCEDURE: Abdomen 1 View X-Ray INDICATIONS: sbo TECHNIQUE: One view of the abdomen acquired. COMPARISON: CT abdomen pelvis 01/20/2023 FINDINGS: Surgical changes and devices: None. Bowel: Bowel gas pattern continues to demonstrate dilated fluid-filled loops of small bowel although slightly less prominent. Soft tissues: No suspicious abdominal calcifications. Visualized solid organ contours appear normal in size. Bones: No suspicious bony lesions. IMPRESSION: Persistent although slightly less prominent appearance of partial small bowel obstruction. Reviewed by: Carissa Rockwell MD on 01/21/2023 4:11 PM PST Approved by: Carissa Rockwell MD on 01/21/2023 4:11 PM PST Station ID: [id number]
--- NOTE | 2023-01-21 17:15 | Discharge Plan ---
Discharge Plan Problem Reviewed?: Yes Disposition: Home, Self Care Condition: Good Prescriptions: Ondansetron Odt [Zofran Odt] 4 mg TL Q6HR PRN #30 tab PRN Reason: Nausea / Vomiting Diet: Regular (low residue diet) Activity Restrictions: Activity as Tolerated Shower Restrictions: No Driving Restrictions: No Instruction Topics: Diet Low Residue Health Concerns: You presented a sudden onset of abdominal pain, nausea and vomiting in the face of a previous colon resection and ostomy for rectal cancer. It started with a meal. You had not had any change in your bowel habits until that point. CT scan of the abdomen showed you to have a partial small bowel obstruction. Many people get obstructions due to adhesions from previous abdominal surgery and you certainly have had that. We also worry about recurrence of colon cancer causing obstruction but your CAT scan does not show that at all. You responded to bowel rest. Overnight your bowels started moving spontaneously. We have been transitioning you from a clear liquid diet to full liquid diet and then a regular diet. You have done well without without any abdominal pain, nausea, or vomiting. Plan of Treatment: Please see your primary care provider in follow-up in the next 1 to 2 weeks. Please also keep your next follow-up appointment with your oncologist and let them know you are here for a partial small bowel obstruction that resolved on its own. Assessment: Patient is alert, oriented, makes his own decisions and will follow through No Smoking: If you smoke, Please STOP! Call for help. Follow-up with: Waleska Elias ARNP [Primary Care Provider] -
[2023-01-21 19:50] VITALS: BP 129/67
== END 2023-01-21 19:53 | disposition home or self-care (01) ==
LOC: ED 07:56 → MS2 11:52
PROVIDERS: ADMIT Specialist; ATTEND Specialist
DX: K56.51 Intestinal adhesions [bands], with partial obstruction (principal); Z90.49 Acquired absence of other specified parts of digestive tract; Z93.3 Colostomy status; C20 Malignant neoplasm of rectum; C78.00 Secondary malignant neoplasm of unspecified lung
CPT/HCPCS: 36415; 74018; 74177; 80048; 80053; 83605; 83690; 83735; 85025; 96361; 96374; 96375; 96376; 99285; G0378; J1170; J1650; J7120; Q9967

== ENCOUNTER 2023-04-28 03:10 | Inpatient (IN) | payer MEDICARE ==
[2023-04-28] MEDS ORDERED: ONDANSETRON 4 MG/2 ML VIAL IVP STA (03:21)
[2023-04-28] MEDS ORDERED: SODIUM CHLORIDE 0.9% 1,000 ML IV STA (03:21)
[2023-04-28] MEDS ORDERED: LIDOCAINE/PRILOCAINE 2.5% CREAM 5 GM TUBE TOP STA (03:31)
--- NOTE | 2023-04-28 04:05 | ED Physician Documentation ---
History of Present Illness - Stated complaint Stated Complaint: V/ABD PX - Chief complaint Chief Complaint: Abd Pain - History obtained from History obtained from: Patient, Family (son) - Additonal information Additional information: 77-year-old man with past medical history of stage IV cancer with colostomy, prior SBO, presents with bilateral diffuse abdominal pressure and bloating with increased belching and 1 episode of nonbloody nonbilious nausea and vomiting upon arrival to the ED. Patient threw up a large amount and 800 cc brown fluid was measured in the bag. Denies fever or chills. Did not eat anything today and has not had much output from the ostomy however he says that it has been putting out gas. PD PAST MEDICAL HISTORY - Past Medical History Cardiovascular: None Respiratory: None Neuro: None Endocrine/Autoimmune: None GI: Ulcers, Hemorrhoids, Cholelithiasis, Other (colon cancer with resection, chemo and ostomy. Seeing Oncology later this month to determine if getting Immunotherapy for tumor. ) : Benign prostate hypertrophy HEENT: Chronic vision loss, Chronic hearing loss Psych: None Musculoskeletal: Osteoarthritis Derm: None - Past Surgical History Past Surgical History: Yes General: Cholecystectomy, Bowel surgery, Colonoscopy, Other Cardiovascular: Other (port-a-cath placement, left chest) - Present Medications Home Medications: Ambulatory Orders Medication Instructions Recorded Confirmed Ferrous Gluconate [Fergon] 324 mg PO DAILYWM #30 tablet 10/22/21 04/28/23 Multivitamin W/Minerals [Theragran 1 tab PO DAILYWM #30 tablet 10/22/21 04/28/23 M] Tamsulosin [Flomax] 0.4 mg PO DAILY 11/10/21 04/28/23 Acetaminophen [Pain Relief Extra 500 - 1,000 mg PO Q8HR PRN 07/12/22 04/28/23 Strength] Pantoprazole [Protonix] 40 mg PO QPM 07/12/22 04/28/23 Potassium Chloride 20 meq PO DAILY 07/12/22 04/28/23 Glucos Sul 2Kcl/MSM/Chond/C/Mn 1 each PO BID 01/20/23 04/28/23 [Glucosamine Chondroitin Cap] Ibuprofen [Advil] 400 mg PO DAILY PRN 01/20/23 04/28/23 Zinc Sulfate 220 mg PO DAILY 01/20/23 04/28/23 Ondansetron Odt [Zofran Odt] 4 mg TL Q6HR PRN #30 tab 01/21/23 04/28/23 - Allergies Allergies/Adverse Reactions: Allergies Allergy/AdvReac Type Severity Reaction Status Date / Time Chemo Allergy Unknown Uncoded 04/28/23 03:28 - Social History Does the pt smoke?: No Smoking Status: Never smoker Does the pt drink ETOH?: No Does the pt have substance abuse?: No - Immunizations Immunizations are current?: Yes Immunizations: TDAP >10years/unknown - POLST Patient has POLST: Yes POLST Status: Full Code PD ED PE NORMAL - Vitals Vital signs reviewed: Yes - General General: Alert and oriented X 3, No acute distress, Well developed/nourished - HEENT HEENT: Atraumatic, PERRL, EOMI - Neck Neck: Supple, no meningeal sign - Cardiac Cardiac: RRR - Respiratory Respiratory: No respiratory distress, Clear bilaterally - Abdomen Abdomen: Non tender, Non distended, Other (Diffuse discomfort to palpation. Decreased bowel sounds. Ostomy in place) - Derm Derm: Normal color, Warm and dry - Extremities Extremities: No deformity - Neuro Neuro: No motor deficit, No sensory deficit - Psych Psych: Normal mood, Normal affect Results - Vitals Vitals: Vital Signs - 24 hr 04/28/23 04/28/23 07:07 08:00 Heart Rate 97 93 Respiratory 21 9 L Rate Blood Pressure 131/78 H 122/69 O2 Saturation 97 94 Oxygen O2 Source Room air - Labs Labs: Laboratory Tests 04/28/23 04/28/23 04/28/23 04:00 04:00 06:12 WBC 9.0 RBC 4.53 L Hgb 15.1 Hct 44.5 MCV 98.2 H MCH 33.3 H MCHC 33.9 RDW 13.2 Plt Count 180 MPV 9.2 Neut # (Auto) 8.2 H Lymph # (Auto) 0.2 L [place] # (Auto) 0.5 Eos # (Auto) 0.0 Baso # (Auto) 0.0 Absolute Nucleated RBC 0.00 Nucleated RBC % 0.0 Sodium 139 Potassium 3.6 Chloride 102 Carbon Dioxide 26 Anion Gap 11.0 BUN 17 Creatinine 0.9 Estimated GFR (MDRD) 82 L Glucose 156 H Calcium 9.2 Total Bilirubin 1.4 H AST 20 ALT 19 Alkaline Phosphatase 127 H Total Protein 8.4 H Albumin 4.0 Globulin 4.4 H Albumin/Globulin Ratio 0.9 L Lipase 20 L Urine Color YELLOW Urine Clarity CLEAR Urine pH 8.0 H Ur Specific [place] 1.010 Urine Protein 30 H Urine Glucose (UA) NEGATIVE Urine Ketones 15 H Urine Occult Blood NEGATIVE Urine Nitrite NEGATIVE Urine Bilirubin NEGATIVE Urine Urobilinogen 0.2 (NORMAL) Ur Leukocyte Esterase NEGATIVE Urine RBC 0-5 Urine WBC 0-3 Ur Squamous Epith Cells NONE SEEN Urine Bacteria None Seen Urine Mucus Few Strands Ur Microscopic Review INDICATED Urine Culture Comments NOT INDICATED PD Medical Decision Making - ED course ED course: 77-year-old man with stage IV cancer and colostomy, history of SBO, presents with nausea vomiting and abdominal bloating and pain. Patient declining pain medication in the emergency department. He was given Zofran IV for nausea. Plan to undertake CBC, abdominal panel, urinalysis, CT with IV and p.o. contrast to evaluate for SBO versus colitis versus acute viral syndrome. Low suspicion for appendicitis given nonlocalizing pain /no right lower quadrant tenderness to palpation. Similarly, gallbladder etiology is low on the differential given negative Dillard sign. We will follow-up test. Labwork noncontributory. Partial SBO on imaging. d/w Dr. trinidad, surgeon concrete finishing machine operator who will consult in. patient declined ng tube. also declined pain meds. maintenance fluids ordered. discussed with hospitalist for admission to observation. Departure - Departure Disposition: ED Place in Observation Clinical Impression: Abdominal pain, Nausea and vomiting, Partial small bowel obstruction Condition: Stable Discharge Date/Time: 04/28/23 10:15
[2023-04-28 04:14] LABS: BASOPHILS % (AUTO) 0.1 %; EOSINOPHILS % (AUTO) 0.2 %; HCT - HEMATOCRIT 44.5 % (42.0-52.0); HGB - HEMOGLOBIN 15.1 g/dL (14.0-18.0); LYMPHOCYTES # (AUTO) 0.2 10^3/uL (1.5-3.5); LYMPHOCYTES % (AUTO) 2.7 %; MEAN CORPUSCULAR HEMOGLOBIN 33.3 pg (27.0-31.0); MEAN CORPUSCULAR HGB CONC 33.9 g/dL (32.0-36.0); MEAN CORPUSCULAR VOLUME 98.2 fL (80.0-94.0); MEAN PLATELET VOLUME 9.2 fL (7.4-11.4); MONOCYTES # (AUTO) 0.5 10^3/uL (0.0-1.0); MONOCYTES % (AUTO) 5.9 %; NEUTROPHILS # (AUTO) 8.2 10^3/uL (1.5-6.6); NEUTROPHILS % (AUTO) 90.8 %; PLT - PLATELET COUNT 180 10^3/uL (130-450); RED BLOOD COUNT 4.53 10^6/uL (4.70-6.10); RED CELL DISTRIBUTION WIDTH 13.2 % (12.0-15.0)
[2023-04-28 04:25] LABS: ALBUMIN/GLOBULIN RATIO 0.9 (1.0-2.2); BILIRUBIN,TOTAL 1.4 mg/dL (0.2-1.0); CALCIUM 9.2 mg/dL (8.5-10.3); CREATININE 0.9 mg/dL (0.6-1.2); POTASSIUM 3.6 mmol/L (3.5-5.0); TOTAL PROTEIN 8.4 g/dL (6.7-8.2)
[2023-04-28] MEDS ORDERED: FAMOTIDINE 20 MG/2 ML VIAL IVP STA (06:05)
[2023-04-28 06:20] LABS: BILIRUBIN,URINE NEGATIVE (NEGATIVE); GLUCOSE, URINE (UA) NEGATIVE (NEGATIVE); KETONES,URINE (UA) 15 mg/dL (NEGATIVE); LEUKOCYTE ESTERASE, URINE NEGATIVE (NEGATIVE); NITRITE,URINE NEGATIVE (NEGATIVE); OCCULT BLOOD,URINE NEGATIVE (NEGATIVE); PROTEIN,URINE 30 mg/dL (NEGATIVE); UROBILINOGEN,URINE 0.2 (NORMAL) E.U./dL (NORMAL)
[2023-04-28 06:24] LABS: CLARITY,URINE CLEAR (CLEAR)
[2023-04-28 06:30] LABS: BACTERIA,URINE None Seen /HPF (None Seen); MUCUS,URINE Few Strands; RBC,URINE 0-5 /HPF (0-5); SQUAMOUS EPITHELIAL CELL,UR NONE SEEN (<= Few); WBC,URINE 0-3 /HPF (0-3)
[2023-04-28] MEDS ORDERED: SODIUM CHLORIDE 0.9% 1,000 ML IV SCH (07:00)
[2023-04-28] MEDS ORDERED: SODIUM CHLORIDE FLUSH 0.9% 10 ML SYRINGE IVP PRN (07:53)
[2023-04-28] MEDS ORDERED: ONDANSETRON 4 MG/2 ML VIAL IVP PRN (07:56)
[2023-04-28] MEDS ORDERED: HYDROmorphone 0.5 MG/0.5 ML SYRINGE IVP PRN (07:58)
--- NOTE | 2023-04-28 08:00 | HISTORY & PHYSICAL EXAMINATION ---
Chief Complaint - Chief Complaint Chief Complaint: N?V,abdominal distension History of Present Illness - Admitted From Admitted From:: Emergency room - History Obtained From Records Reviewed: Yes History obtained from: ER physician, patient and son, records - History of Present Illness HPI Comment/Other: This is a 77-year-old male with history of stage IV colon cancer with a colostomy followed by Dr. Dinah Benavides who presents with nausea vomiting and abdominal distention and discomfort. He had a prior SBO which resolved with bowel rest. This was in January. He has had no fevers or chills. History - Past Medical History Cardiovascular: reports: None Respiratory: reports: None Neuro: reports: None Endocrine/Autoimmune: reports: None GI: reports: Ulcers, Hemorrhoids, Cholelithiasis, Other (colon cancer with resection, chemo and ostomy. Seeing Oncology later this month to determine if getting Immunotherapy for tumor. ) : reports: Benign prostate hypertrophy HEENT: reports: Chronic vision loss, Chronic hearing loss Psych: reports: None Musculoskeletal: reports: Osteoarthritis Derm: reports: None MRSA Hx?: No - Past Surgical History General: reports: Cholecystectomy, Bowel surgery, Colonoscopy, Other Cardiovascular: reports: Other (port-a-cath placement, left chest) - Family & Social History Family History Comment/Other: Mother at age 93. Had a stroke. Also had a history of bowel obstruction. Dad at age 85 of a heart attack, also had a stroke. 1 sister has had uterine cancer. 1 brother has had prostate cancer. Daughter has gallbladder disease. Son has hemorrhoids Living Situation: With family Social History Notes: Never smoked, rarely drinks alcohol. 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 Since his 's , he lives with his oldest son. - Substance History Use: Uses substance without health or social issues: NONE - POLST Patient has POLST: Yes POLST Status: Full Code Meds/Allgy - Home Medications Home Medications: Ambulatory Orders Medication Instructions Recorded Confirmed Ferrous Gluconate [Fergon] 324 mg PO DAILYWM #30 tablet 10/22/21 04/28/23 Multivitamin W/Minerals [Theragran 1 tab PO DAILYWM #30 tablet 10/22/21 04/28/23 M] Tamsulosin [Flomax] 0.4 mg PO DAILY 11/10/21 04/28/23 Acetaminophen [Pain Relief Extra 500 - 1,000 mg PO Q8HR PRN 07/12/22 04/28/23 Strength] Pantoprazole [Protonix] 40 mg PO QPM 07/12/22 04/28/23 Potassium Chloride 20 meq PO DAILY 07/12/22 04/28/23 Glucos Sul 2Kcl/MSM/Chond/C/Mn 1 each PO BID 01/20/23 04/28/23 [Glucosamine Chondroitin Cap] Ibuprofen [Advil] 400 mg PO DAILY PRN 01/20/23 04/28/23 Zinc Sulfate 220 mg PO DAILY 01/20/23 04/28/23 Ondansetron Odt [Zofran Odt] 4 mg TL Q6HR PRN #30 tab 01/21/23 04/28/23 - Allergies Allergies/Adverse Reactions: Allergies Allergy/AdvReac Type Severity Reaction Status Date / Time Chemo Allergy Unknown Uncoded 04/28/23 03:28 Review of Systems - All Other Systems All Other Systems: reports: Other (All systems reviewed and are negative except for as in HPI) Exam - Vital Signs Reviewed Vital Signs: Yes Vital Signs: Vital Signs x48h Temp Pulse Resp BP Pulse Ox 04/28/23 07:07 97 21 131/78 H 97 04/28/23 05:48 99 25 H 145/78 H 99 04/28/23 03:22 36.2 C L 98 12 147/81 H 95 - Physical Exam General Appearance: positive: Alert, Mild distress Eyes Bilateral: positive: PERRL, EOMI Neck: positive: Nml inspection Respiratory: positive: Breath sounds nml Cardiovascular: positive: Regular rate & rhythm, No murmur Abdomen: positive: Other (Mild distention with hypoactive bowel sounds mild diffuse tenderness to palpation.) Conclusion/Plan - Problem List (1) Partial small bowel obstruction Conclusion/Plan: -Appreciate general surgery consult -N.p.o. except meds, IV fluid hydration -IV Dilaudid as needed pain, IV Zofran as needed nausea vomiting (2) Colon cancer Conclusion/Plan: -Patient with stage IV colon cancer which was diagnosed in May 2021 -Followed by oncologist Dr. Dinah Benavides -Patient did receive radiation therapy for rectal cancer last radiation therapy was February 03, 2022 -Patient was also found to have lung mets with biopsy April 2022 and is being followed - Lab Results Fish Bones: 04/28/23 04:00 04/28/23 04:00 - Diagnostic Imaging Results Diagnostic Imaging Results: positive: Prelim report reviewed
--- NOTE | 2023-04-28 08:27 | CT Report ---
PROCEDURE: ABDOMEN/PELVIS W INDICATIONS: abd pain, hx SBO CONTRAST: 100 ML OMNI 350 TECHNIQUE: After the administration of intravenous contrast, 5 mm thick sections acquired from the diaphragms to the symphysis. 5 mm thick coronal and sagittal reformats were acquired. For radiation dose reducti on, the following was used: automated exposure control, adjustment of mA and/or kV according to alistair ent size. COMPARISON: CT abdomen pelvis 01/20/2023, 09/28/2022. FINDINGS: Image quality: Excellent. Lung bases and heart: Left lung base subpleural pulmonary nodule measuring 0.6 cm, (03/17), unchanged. Central venous line at the proximal right atrium. Fluid in the esophagus. Liver: No focal lesion. Gallbladder and biliary tree: Absent. No biliary dilatation. Spleen: No splenomegaly. Benign cyst or hemangioma in the spleen. Pancreas: Enhances uniformly. Adrenals: No adrenal nodule. Kidneys and ureters: No hydronephrosis. No renal cystic lesion which requires follow up. Benign left renal cyst measuring 5.4 cm. No solid mass. Bowel and peritoneum: Stomach is distended. There are dilated loops of proximal jejunum and ileum. Sm all air-fluid levels in the left abdomen. No discrete transition point. Left abdomen colostomy. Small parastomal hernia, unchanged. The colon is not distended. The appendix is not distended. Rectal stum p. Small volume of low-density fluid in the pelvis. No pneumoperitoneum. Lymph nodes: No central or retroperitoneal adenopathy. Vessels: No infrarenal aortic aneurysm. Mesenteric engorgement. PELVIS Reproductive organs: Prostatomegaly. Bladder: No wall thickening. No stone. Pelvic lymph nodes: No pelvic adenopathy by size criteria. Bones: No aggressive osseous abnormality. Other: No significant ventral or inguinal hernia. IMPRESSION: 1. Dilated fluid-filled loops of small bowel with air-fluid levels. No discrete transition point. Fin dings most consistent with small bowel obstruction. 2. No pneumoperitoneum. A small volume of free fluid in the pelvis. Mesenteric engorgement. 3. Distal colectomy. This report is concordant with the overnight preliminary interpretation. Reviewed by: Farhad Ocampo MD on 04/28/2023 8:26 AM PDT Approved by: Farhad Ocampo MD on 04/28/2023 8:26 AM PDT Station ID: [id number]
--- NOTE | 2023-04-28 08:34 | CONSULTATION NOTE ---
Referring Provider Name of Referring Provider:: Medicine Consult Date: 04/28/23 Chief Complaint - Chief Complaint Chief Complaint: pSBO History of Present Illness - Admitted From Admitted From:: ED - History Obtained From Records Reviewed: yes History obtained from: ED provider, patient, son, chart Exam Limitations: none identified - History of Present Illness HPI Comment/Other: This is a 77 y/o M with history of rectal cancer with a colostomy. He has a hi story of SBO in the past which has responded to conservative management. He began having abdominal pain yesterday morning which was sharp and diffuse in nature. It is associated with nausea, vomiting, and decreased colostomy output. For this, he presented to the ED where workup is consistent with partial small bowel obstruction. I have been asked to consult in his care. At the time of my visit, the patient is complaining of heartburn but feels less distended. He's also noted some ostomy output for the first time in the last 24 hours. He does not want an NG tube if he can possibly avoid it. Denies nausea at this time. No f/c. Otherwise been doing "ok" lately. His son, Krzysztof, is at bedside and states the patient is currently not on any treatment for his rectal cancer and that his oncology team continues to re-evaluate if her would tolerate any treatment in the future. History - Past Medical History Cardiovascular: reports: None Respiratory: reports: None Neuro: reports: None Endocrine/Autoimmune: reports: None GI: reports: Ulcers, Hemorrhoids, Cholelithiasis, Other (colon cancer with resection, chemo and ostomy. Seeing Oncology later this month to determine if getting Immunotherapy for tumor. ) : reports: Benign prostate hypertrophy HEENT: reports: Chronic vision loss, Chronic hearing loss Psych: reports: None Musculoskeletal: reports: Osteoarthritis Derm: reports: None MRSA Hx?: No - Past Surgical History General: reports: Cholecystectomy, Bowel surgery, Colonoscopy, Other Cardiovascular: reports: Other (port-a-cath placement, left chest) - Family & Social History Family History Comment/Other: Mother at age 93. Had a stroke. Also had a history of bowel obstruction. Dad at age 85 of a heart attack, also had a stroke. 1 sister has had uterine cancer. 1 brother has had prostate cancer. Daughter has gallbladder disease. Son has hemorrhoids Living Situation: With family Social History Notes: Never smoked, rarely drinks alcohol. 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 Since his 's , he lives with his oldest son. - Substance History Use: Uses substance without health or social issues: NONE - POLST Patient has POLST: Yes POLST Status: Full Code Meds/Allgy - Home Medications Home Medications: Ambulatory Orders Medication Instructions Recorded Confirmed Ferrous Gluconate [Fergon] 324 mg PO DAILYWM #30 tablet 10/22/21 04/28/23 Multivitamin W/Minerals [Theragran 1 tab PO DAILYWM #30 tablet 10/22/21 04/28/23 M] Tamsulosin [Flomax] 0.4 mg PO DAILY 11/10/21 04/28/23 Acetaminophen [Pain Relief Extra 500 - 1,000 mg PO Q8HR PRN 07/12/22 04/28/23 Strength] Pantoprazole [Protonix] 40 mg PO QPM 07/12/22 04/28/23 Potassium Chloride 20 meq PO DAILY 07/12/22 04/28/23 Glucos Sul 2Kcl/MSM/Chond/C/Mn 1 each PO BID 01/20/23 04/28/23 [Glucosamine Chondroitin Cap] Ibuprofen [Advil] 400 mg PO DAILY PRN 01/20/23 04/28/23 Zinc Sulfate 220 mg PO DAILY 01/20/23 04/28/23 Ondansetron Odt [Zofran Odt] 4 mg TL Q6HR PRN #30 tab 01/21/23 04/28/23 - Allergies Allergies/Adverse Reactions: Allergies Allergy/AdvReac Type Severity Reaction Status Date / Time Chemo Allergy Unknown Uncoded 04/28/23 03:28 Review of Systems - Constitutional Constitutional: reports: Other (A complete 10 point review of symptoms is otherwise negative except for that noted in HPI and PMH.) Exam - Vital Signs Reviewed Vital Signs: Yes Vital Signs: Vital Signs x48h Temp Pulse Resp BP Pulse Ox 04/28/23 08:00 93 9 L 122/69 94 04/28/23 07:07 97 21 131/78 H 97 04/28/23 05:48 99 25 H 145/78 H 99 04/28/23 03:22 36.2 C L 98 12 147/81 H 95 - Physical Exam General Appearance: positive: No acute distress, Alert Eyes Bilateral: positive: PERRL, EOMI ENT: positive: Dry mucous membranes Neck: positive: Trachea midline Respiratory: positive: No respiratory distress Cardiovascular: positive: Regular rate & rhythm Peripheral Pulses: positive: 2+ Abdomen: positive: Other (mild distension, mild diffuse ttp, no r/g) Skin: positive: No rash Extremities: positive: Non-tender Neurologic/Psychiatric: positive: Oriented x3 Conclusion and Plan - Lab Results Laboratory Results 04/28/23 06:12: Urine Color YELLOW, Urine Clarity CLEAR, Urine pH 8.0 H, Ur Specific [place] 1.010, Urine Protein 30 H, Urine Glucose (UA) NEGATIVE, Urine Ketones 15 H, Urine Occult Blood NEGATIVE, Urine Nitrite NEGATIVE, Urine Bilirubin NEGATIVE, Urine Urobilinogen 0.2 (NORMAL), Ur Leukocyte Esterase NEGATIVE, Urine RBC 0-5, Urine WBC 0-3, Ur Squamous Epith Cells NONE SEEN, Urine Bacteria None Seen, Urine Mucus Few Strands, Ur Microscopic Review INDICATED, Urine Culture Comments NOT INDICATED 04/28/23 04:00: Sodium 139, Potassium 3.6, Chloride 102, Carbon Dioxide 26, Anion Gap 11.0, BUN 17, Creatinine 0.9, Estimated GFR (MDRD) 82 L, Glucose 156 H, Calcium 9.2, Total Bilirubin 1.4 H, AST 20, ALT 19, Alkaline Phosphatase 127 H, Total Protein 8.4 H, Albumin 4.0, Globulin 4.4 H, Albumin/Globulin Ratio 0.9 L, Lipase 20 L 04/28/23 04:00: WBC 9.0, RBC 4.53 L, Hgb 15.1, Hct 44.5, MCV 98.2 H, MCH 33.3 H, MCHC 33.9, RDW 13.2, Plt Count 180, MPV 9.2, Neut # (Auto) 8.2 H, Lymph # (Auto) 0.2 L, [place] # (Auto) 0.5, Eos # (Auto) 0.0, Baso # (Auto) 0.0, Absolute Nucleated RBC 0.00, Nucleated RBC % 0.0 - Diagnostic Imaging Results Diagnostic Imaging Results: positive: Final report reviewed, Read independently Diagnostic Imaging Results Comments: CT demonstrates a dilated stomach and proximal small bowel without distinct transition point. He has no significant free fluid and no free air. I personally reviewed the images and report and independently red this study. - Consultation Note Consultation Note: 77 y/o M with: partial small bowel obstruction - imaging, history, and physical consistent with this diagnosis - patient currently refusing NG - some ostomy output this morning (new from time of presentation) - NG ordered if patient changes his mind - plan for conservative management with bowel rest today, hopeful this will work as it has before - consider sbft tomorrow if not making progress rectal cancer - patient did not tolerate chemo, not currently on any treatment - repeat workup (labs, CT/PET) pending - followed by Dr. Tae Freedman of CRS in [place] and Dr. Dinah Benavides of med onc CAD, BPH, GERD, OA - as per primary team Thank you for consulting me in the care of this patient. I will continue to follow closely.
[2023-04-28] MEDS: SODIUM CHLORIDE FLUSH 0.9% 10 ML SYRINGE IVP SCH ×2 (10:17→16:02)
--- NOTE | 2023-04-28 10:53 | PHARMACY PROGRESS NOTE ---
- Best Possible Medication History Admit Date and Time: 04/28/23818 Processed by: Nursing As the person ultimately responsible for medication therapy, providers are able to order a medication from an existing home medication list in [facility] via the "Reconcile Routine" prior to Confirmation of that medication by retail support associate. Such practice is discouraged except when the physician, in their clinical judgment, deems that a medical need exists for a medication without regard to previous use.
[2023-04-28] MEDS ORDERED: HYDROmorphone 1 MG/ML CARPUJECT IVP PRN (11:39)
[2023-04-28] MEDS: SODIUM CHLORIDE 0.9% 1,000 ML IV SCH ×2 (14:38→22:09)
[2023-04-29] MEDS ORDERED: PHENOL THROAT SPRAY 177 ML MM PRN (00:21)
[2023-04-29] MEDS: BENZOCAINE/MENTHOL LOZENGE MM PRN ×2 (00:38→07:59)
[2023-04-29] MEDS: SODIUM CHLORIDE FLUSH 0.9% 10 ML SYRINGE IVP SCH ×3 (03:38→20:38)
[2023-04-29] MEDS: SODIUM CHLORIDE 0.9% 1,000 ML IV SCH ×3 (05:38→21:44)
[2023-04-29 08:54] LABS: BASOPHILS % (AUTO) 0.2 %; EOSINOPHILS # (AUTO) 0.1 10^3/uL (0.0-0.7); EOSINOPHILS % (AUTO) 2.9 %; HCT - HEMATOCRIT 38.4 % (42.0-52.0); HGB - HEMOGLOBIN 12.9 g/dL (14.0-18.0); LYMPHOCYTES # (AUTO) 0.7 10^3/uL (1.5-3.5); LYMPHOCYTES % (AUTO) 14.3 %; MEAN CORPUSCULAR HEMOGLOBIN 33.3 pg (27.0-31.0); MEAN CORPUSCULAR HGB CONC 33.6 g/dL (32.0-36.0); MEAN CORPUSCULAR VOLUME 99.2 fL (80.0-94.0); MEAN PLATELET VOLUME 8.9 fL (7.4-11.4); MONOCYTES # (AUTO) 0.5 10^3/uL (0.0-1.0); MONOCYTES % (AUTO) 10.2 %; NEUTROPHILS # (AUTO) 3.5 10^3/uL (1.5-6.6); NEUTROPHILS % (AUTO) 72.2 %; PLT - PLATELET COUNT 150 10^3/uL (130-450); RED BLOOD COUNT 3.87 10^6/uL (4.70-6.10); RED CELL DISTRIBUTION WIDTH 13.7 % (12.0-15.0); WHITE BLOOD COUNT 4.8 x10^3/uL (4.8-10.8)
[2023-04-29 09:02] LABS: BUN - BLOOD UREA NITROGEN 18 mg/dL (6-20); CALCIUM 8.1 mg/dL (8.5-10.3); CARBON DIOXIDE - CO2 22 mmol/L (21-32); CHLORIDE 112 mmol/L (101-111); GFR - MDRD 73 (>89); GLUCOSE 92 mg/dL (70-100); IONIZED CALCIUM IF INDICATED YES; POTASSIUM 3.3 mmol/L (3.5-5.0); SODIUM 141 mmol/L (135-145)
[2023-04-29 09:06] LABS: CALCIUM, IONIZED 1.14 mmol/L (1.15-1.33); VBG PH 7.377 (7.31-7.41)
[2023-04-29] MEDS: PANTOPRAZOLE 40 MG VIAL IVP SCH ×2 (14:09→20:38)
--- NOTE | 2023-04-29 15:53 | PROVIDER PROGRESS NOTE ---
Assessment/Plan - Problem List (1) Partial small bowel obstruction Assessment/Plan: Conclusion/Plan: -Appreciate general surgery consult -N.p.o. except meds, IV fluid hydration -IV Dilaudid as needed pain, IV Zofran as needed nausea vomiting April 29, 2023-Abdominal is less distended no pain to palpation and has had some output in his ostomy so we will proceed with clear liquid diet (2) Colon cancer Conclusion/Plan: -Patient with stage IV colon cancer which was diagnosed in May 2021 -Followed by oncologist Dr. Dinah Benavides -Patient did receive radiation therapy for rectal cancer last radiation therapy was February 03, 2022 -Patient was also found to have lung mets with biopsy April 2022 and is being followed - Current Meds Current Meds: Current Medications Generic Name Dose Route Start Last Admin Trade Name Freq PRN Reason Stop Dose Admin Sodium Chloride 1,000 mls @ 125 mls/hr 04/28/23 15:00 04/29/23 14:05 Normal Saline 0.9% IV 125 mls/hr .Q8H SPENCER Administration Pantoprazole Sodium 40 mg 04/29/23 11:00 04/29/23 14:09 Pantoprazole 40 Mg Vial IVP 40 mg BID SPENCER Administration Sodium Chloride 10 ml 04/28/23 09:00 04/29/23 14:09 Sodium Chloride Flush 0.9% 10 Ml Syringe IVP Not Given 0100,0900,1700 SPENCER Throat Lozenges 1 lozenge 04/29/23 00:21 04/29/23 07:59 Benzocaine/Menthol Lozenge MM 1 lozenge Q2HR PRN Administration Throat pain - Lab Result Fish Bone Diagrams: 04/29/23 08:30 04/29/23 08:30 - Additional Planning My Orders: My Active Orders 04/28/23 15:00 Sodium Chloride 0.9% [Normal Saline 0.9%] 1,000 ml IV 125 mls/hr 04/29/23 00:21 Benzocaine/Menthol [Cepacol] 1 lozenge MM Q2HR PRN phenoL [Chloraseptic] 2 sprays MM Q2HR PRN 04/29/23 11:00 Pantoprazole [Protonix] 40 mg IVP BID Objective Vital Signs: Vital Signs - 24 hr 04/29/23 04/29/23 04/29/23 00:20 08:00 15:48 Temperature 36.7 C 36.3 C L 36.5 C Heart Rate [ 74 66 71 Brachial] Respiratory 18 18 20 Rate Blood Pressure 117/60 116/52 L 137/61 H [Right Brachial artery] O2 Saturation 99 96 100 Oxygen O2 Source Room air I&O (Last 24 Hrs): Intake and Output Totals x24h 04/27/23 04/28/23 04/29/23 23:59 23:59 23:59 Intake Total 2881.249 1935.417 Output Total 803 200 Balance 2078.249 1735.417 General: Alert, Oriented x3 HEENT: Atraumatic Neuro: Alert, Non Focal Cardiovascular: Regular rate, Normal S1, Normal S2 Respiratory: No respiratory distress Abdomen: Soft, No tenderness - Results Results: Laboratory Results WBC 4.8 x10^3/uL (4.8-10.8) 04/29/23 08:30 RBC 3.87 10^6/uL (4.70-6.10) L 04/29/23 08:30 Hgb 12.9 g/dL (14.0-18.0) L 04/29/23 08:30 Hct 38.4 % (42.0-52.0) L 04/29/23 08:30 MCV 99.2 fL (80.0-94.0) H 04/29/23 08:30 MCH 33.3 pg (27.0-31.0) H 04/29/23 08:30 MCHC 33.6 g/dL (32.0-36.0) 04/29/23 08:30 RDW 13.7 % (12.0-15.0) 04/29/23 08:30 Plt Count 150 10^3/uL (130-450) 04/29/23 08:30 MPV 8.9 fL (7.4-11.4) 04/29/23 08:30 Neut # (Auto) 3.5 10^3/uL (1.5-6.6) 04/29/23 08:30 Lymph # (Auto) 0.7 10^3/uL (1.5-3.5) L 04/29/23 08:30 [place] # (Auto) 0.5 10^3/uL (0.0-1.0) 04/29/23 08:30 Eos # (Auto) 0.1 10^3/uL (0.0-0.7) 04/29/23 08:30 Baso # (Auto) 0.0 10^3/uL (0.0-0.1) 04/29/23 08:30 Absolute Nucleated RBC 0.00 x10^3/uL 04/29/23 08:30 Nucleated RBC % 0.0 /100WBC 04/29/23 08:30 VBG pH 7.377 (7.31-7.41) 04/29/23 08:30 Ionized Calcium 1.14 mmol/L (1.15-1.33) L 04/29/23 08:30 Sodium 141 mmol/L (135-145) 04/29/23 08:30 Potassium 3.3 mmol/L (3.5-5.0) L 04/29/23 08:30 Chloride 112 mmol/L (101-111) H 04/29/23 08:30 Carbon Dioxide 22 mmol/L (21-32) 04/29/23 08:30 Anion Gap 7.0 (6-13) 04/29/23 08:30 BUN 18 mg/dL (6-20) 04/29/23 08:30 Creatinine 1.0 mg/dL (0.6-1.2) 04/29/23 08:30 Estimated GFR (MDRD) 73 (>89) L 04/29/23 08:30 Glucose 92 mg/dL (70-100) 04/29/23 08:30 Calcium 8.1 mg/dL (8.5-10.3) L 04/29/23 08:30 Ionized Calcium YES 04/29/23 08:30 Total Bilirubin 1.4 mg/dL (0.2-1.0) H 04/28/23 04:00 AST 20 IU/L (10-42) 04/28/23 04:00 ALT 19 IU/L (10-60) 04/28/23 04:00 Alkaline Phosphatase 127 IU/L (42-121) H 04/28/23 04:00 Total Protein 8.4 g/dL (6.7-8.2) H 04/28/23 04:00 Albumin 4.0 g/dL (3.2-5.5) 04/28/23 04:00 Globulin 4.4 g/dL (2.1-4.2) H 04/28/23 04:00 Albumin/Globulin Ratio 0.9 (1.0-2.2) L 04/28/23 04:00 Lipase 20 U/L (22-51) L 04/28/23 04:00 Urine Color YELLOW 04/28/23 06:12 Urine Clarity CLEAR (CLEAR) 04/28/23 06:12 Urine pH 8.0 PH (5.0-7.5) H 04/28/23 06:12 Ur Specific [place] 1.010 (1.002-1.030) 04/28/23 06:12 Urine Protein 30 mg/dL (NEGATIVE) H 04/28/23 06:12 Urine Glucose (UA) NEGATIVE mg/dL (NEGATIVE) 04/28/23 06:12 Urine Ketones 15 mg/dL (NEGATIVE) H 04/28/23 06:12 Urine Occult Blood NEGATIVE (NEGATIVE) 04/28/23 06:12 Urine Nitrite NEGATIVE (NEGATIVE) 04/28/23 06:12 Urine Bilirubin NEGATIVE (NEGATIVE) 04/28/23 06:12 Urine Urobilinogen 0.2 (NORMAL) E.U./dL (NORMAL) 04/28/23 06:12 Ur Leukocyte Esterase NEGATIVE (NEGATIVE) 04/28/23 06:12 Urine RBC 0-5 /HPF (0-5) 04/28/23 06:12 Urine WBC 0-3 /HPF (0-3) 04/28/23 06:12 Ur Squamous Epith Cells NONE SEEN (<= Few) 04/28/23 06:12 Urine Bacteria None Seen /HPF (None Seen) 04/28/23 06:12 Urine Mucus Few Strands 04/28/23 06:12 Ur Microscopic Review INDICATED 04/28/23 06:12 Urine Culture Comments NOT INDICATED 04/28/23 06:12 - Procedures Procedures: Procedures EXCISION OF SIGMOID COLON, ENDO, DIAGN (06/17/21) ABX Reporting Has patient been on IV antibiotics over the past 48 hours?: No
[2023-04-30] MEDS: SODIUM CHLORIDE FLUSH 0.9% 10 ML SYRINGE IVP SCH ×3 (01:58→15:57)
[2023-04-30] MEDS: SODIUM CHLORIDE 0.9% 1,000 ML IV SCH ×3 (05:41→22:14)
[2023-04-30] MEDS: PANTOPRAZOLE 40 MG VIAL IVP SCH (08:52)
[2023-04-30 09:02] LABS: BASOPHILS % (AUTO) 0.2 %; EOSINOPHILS # (AUTO) 0.2 10^3/uL (0.0-0.7); EOSINOPHILS % (AUTO) 4.3 %; HCT - HEMATOCRIT 33.3 % (42.0-52.0); HGB - HEMOGLOBIN 11.3 g/dL (14.0-18.0); LYMPHOCYTES # (AUTO) 0.7 10^3/uL (1.5-3.5); LYMPHOCYTES % (AUTO) 16.4 %; MEAN CORPUSCULAR HEMOGLOBIN 32.8 pg (27.0-31.0); MEAN CORPUSCULAR HGB CONC 33.9 g/dL (32.0-36.0); MEAN CORPUSCULAR VOLUME 96.8 fL (80.0-94.0); MEAN PLATELET VOLUME 8.7 fL (7.4-11.4); MONOCYTES # (AUTO) 0.4 10^3/uL (0.0-1.0); NEUTROPHILS # (AUTO) 2.9 10^3/uL (1.5-6.6); NEUTROPHILS % (AUTO) 69.6 %; PLT - PLATELET COUNT 134 10^3/uL (130-450); RED BLOOD COUNT 3.44 10^6/uL (4.70-6.10); RED CELL DISTRIBUTION WIDTH 13.2 % (12.0-15.0); WHITE BLOOD COUNT 4.2 x10^3/uL (4.8-10.8)
[2023-04-30 09:12] LABS: BUN - BLOOD UREA NITROGEN 9 mg/dL (6-20); CALCIUM 7.9 mg/dL (8.5-10.3); CARBON DIOXIDE - CO2 21 mmol/L (21-32); CHLORIDE 112 mmol/L (101-111); CREATININE 0.8 mg/dL (0.6-1.2); GFR - MDRD 94 (>89); GLUCOSE 116 mg/dL (70-100); IONIZED CALCIUM IF INDICATED YES; POTASSIUM 2.7 mmol/L (3.5-5.0); SODIUM 138 mmol/L (135-145)
[2023-04-30 09:25] LABS: CALCIUM, IONIZED 1.13 mmol/L (1.15-1.33); VBG PH 7.399 (7.31-7.41)
[2023-04-30] MEDS: POTASSIUM CHLOR 10 MEQ/100 ML 10 MEQ/100 ML BAG IV SCH ×4 (11:15→15:56)
--- NOTE | 2023-04-30 11:56 | PROVIDER PROGRESS NOTE ---
Subjective - Prog Note Date Prog Note Date: 04/30/23 - Subjective Pt reports feeling: Improved (tolerating clears. no pain and stoma functional) Objective - Vital Signs/Intake & Output Reviewed Vital Signs: Yes Vital Signs: Vital Signs x48h Temp Pulse Resp BP Pulse Ox 04/30/23 08:20 37.0 C 69 18 132/67 H 98 Intake & Output: Intake & Output 04/27/23 04/28/23 04/29/23 04/30/23 23:59 23:59 23:59 23:59 Intake Total 2881.249 3946.667 1398.75 Output Total 803 200 Balance 2078.249 3746.667 1398.75 - Objective General Appearance: positive: No acute distress, Alert Respiratory: positive: No respiratory distress Abdomen: positive: Non-tender, No distention, Other (air in stoma bag) - Lab Results Fish Bones: 04/30/23 08:56 04/30/23 08:56 Other Labs: Lab Results x24hrs 04/30/23 04/30/23 04/30/23 Range/Units 08:56 08:56 08:56 WBC 4.2 L (4.8-10.8) x10^3/uL RBC 3.44 L (4.70-6.10) 10^6/uL Hgb 11.3 L (14.0-18.0) g/dL Hct 33.3 L (42.0-52.0) % MCV 96.8 H (80.0-94.0) fL MCH 32.8 H (27.0-31.0) pg MCHC 33.9 (32.0-36.0) g/dL RDW 13.2 (12.0-15.0) % Plt Count 134 (130-450) 10^3/uL MPV 8.7 (7.4-11.4) fL Neut # (Auto) 2.9 (1.5-6.6) 10^3/uL Lymph # (Auto) 0.7 L (1.5-3.5) 10^3/uL [place] # (Auto) 0.4 (0.0-1.0) 10^3/uL Eos # (Auto) 0.2 (0.0-0.7) 10^3/uL Baso # (Auto) 0.0 (0.0-0.1) 10^3/uL Absolute Nucleated RBC 0.00 x10^3/uL Nucleated RBC % 0.0 /100WBC VBG pH 7.399 (7.31-7.41) Ionized Calcium 1.13 L YES (1.15-1.33) mmol/L Sodium 138 (135-145) mmol/L Potassium 2.7 L (3.5-5.0) mmol/L Chloride 112 H (101-111) mmol/L Carbon Dioxide 21 (21-32) mmol/L Anion Gap 5.0 L (6-13) BUN 9 (6-20) mg/dL Creatinine 0.8 (0.6-1.2) mg/dL Estimated GFR (MDRD) 94 (>89) Glucose 116 H (70-100) mg/dL Calcium 7.9 L (8.5-10.3) mg/dL Assessment/Plan - Problem List (1) Partial small bowel obstruction Impression: much improved to resolved. agree with care and plan slowly advancing diet
[2023-04-30] MEDS ORDERED: TAMSULOSIN 0.4 MG CAPSULE PO SCH (12:00)
[2023-04-30] MEDS: TAMSULOSIN 0.4 MG CAPSULE PO SCH (12:38)
--- NOTE | 2023-04-30 12:43 | MISCELLANEOUS PROVIDER NOTE ---
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
--- NOTE | 2023-04-30 14:00 | PROVIDER PROGRESS NOTE ---
Assessment/Plan - Problem List (1) Partial small bowel obstruction Assessment/Plan: Assessment/Plan: Conclusion/Plan: -Appreciate general surgery consult -N.p.o. except meds, IV fluid hydration -IV Dilaudid as needed pain, IV Zofran as needed nausea vomiting April 29, 2023-Abdominal is less distended no pain to palpation and has had some output in his ostomy so we will proceed with clear liquid diet April 30, 2023-we will progress diet from clear liquid to full liquid diet. Appreciate general surgery consultation. (2) Colon cancer Conclusion/Plan: -Patient with stage IV colon cancer which was diagnosed in May 2021 -Followed by oncologist Dr. Dinah Benavides -Patient did receive radiation therapy for rectal cancer last radiation therapy was February 03, 2022 -Patient was also found to have lung mets with biopsy April 2022 and is being followed 3. History of BPH -Reinitiate his usual home dose of Flomax - Current Meds Current Meds: Current Medications Generic Name Dose Route Start Last Admin Trade Name Freq PRN Reason Stop Dose Admin Sodium Chloride 1,000 mls @ 125 mls/hr 04/28/23 15:00 04/30/23 13:51 Normal Saline 0.9% IV 125 mls/hr .Q8H SPENCER Administration Potassium Chloride 10 meq in 100 mls @ 100 mls/hr 04/30/23 11:00 04/30/23 12:38 Potassium Chloride IV 04/30/23 14:59 100 mls/hr Q1H SPENCER Administration Sodium Chloride 10 ml 04/28/23 09:00 04/30/23 08:52 Sodium Chloride Flush 0.9% 10 Ml Syringe IVP 10 ml 0100,0900,1700 SPENCER Administration Tamsulosin HCl 0.4 mg 04/30/23 11:00 04/30/23 12:38 Tamsulosin 0.4 Mg Capsule PO 0.4 mg DAILY SPENCER Administration Throat Lozenges 1 lozenge 04/29/23 00:21 04/29/23 07:59 Benzocaine/Menthol Lozenge MM 1 lozenge Q2HR PRN Administration Throat pain - Lab Result Fish Bone Diagrams: 04/30/23 08:56 04/30/23 08:56 - Additional Planning My Orders: My Active Orders 04/30/23 11:00 Potassium Chlor 10 Meq/100 ml [Potassium Chloride] 10 meq in 100 ml IV Q1H Tamsulosin [Flomax] 0.4 mg PO DAILY 04/30/23 Lunch Full Liquid Diet [DIET] 04/30/23 21:00 Pantoprazole [Protonix] 40 mg PO QPM 05/01/23 05:00 BMP, RFLX TO IONIZED CA IF [CHEM] DAILYLAB CBC - COMP BLD CT W/AUTO DIFF [HEME] DAILYLAB 05/02/23 05:00 BMP, RFLX TO IONIZED CA IF [CHEM] DAILYLAB CBC - COMP BLD CT W/AUTO DIFF [HEME] DAILYLAB 05/03/23 05:00 BMP, RFLX TO IONIZED CA IF [CHEM] DAILYLAB CBC - COMP BLD CT W/AUTO DIFF [HEME] DAILYLAB 05/04/23 05:00 BMP, RFLX TO IONIZED CA IF [CHEM] DAILYLAB CBC - COMP BLD CT W/AUTO DIFF [HEME] DAILYLAB Subjective - Subjective Patient Reports: Feeling Better Objective Vital Signs: Vital Signs - 24 hr 04/29/23 04/29/23 04/29/23 15:48 21:17 23:58 Temperature 36.5 C 36.3 C L 37.0 C Heart Rate [ 71 75 73 Brachial] Respiratory 20 20 16 Rate Blood Pressure 137/61 H 142/67 H 124/68 [Right Brachial artery] O2 Saturation 100 99 100 04/30/23 08:20 Temperature 37.0 C Heart Rate [ 69 Brachial] Respiratory 18 Rate Blood Pressure 132/67 H [Right Brachial artery] O2 Saturation 98 Oxygen O2 Source Room air I&O (Last 24 Hrs): Intake and Output Totals x24h 04/28/23 04/29/23 04/30/23 23:59 23:59 23:59 Intake Total 2881.249 3946.667 3458.75 Output Total 803 200 Balance 2078.249 3746.667 3458.75 General: Alert, Oriented x3 HEENT: Atraumatic Neuro: Alert Cardiovascular: Regular rate, Normal S1, Normal S2 Respiratory: Breath sounds nml Abdomen: Normal bowel sounds, Soft Extremities: No edema - Results Results: Laboratory Results WBC 4.2 x10^3/uL (4.8-10.8) L 04/30/23 08:56 RBC 3.44 10^6/uL (4.70-6.10) L 04/30/23 08:56 Hgb 11.3 g/dL (14.0-18.0) L 04/30/23 08:56 Hct 33.3 % (42.0-52.0) L 04/30/23 08:56 MCV 96.8 fL (80.0-94.0) H 04/30/23 08:56 MCH 32.8 pg (27.0-31.0) H 04/30/23 08:56 MCHC 33.9 g/dL (32.0-36.0) 04/30/23 08:56 RDW 13.2 % (12.0-15.0) 04/30/23 08:56 Plt Count 134 10^3/uL (130-450) 04/30/23 08:56 MPV 8.7 fL (7.4-11.4) 04/30/23 08:56 Neut # (Auto) 2.9 10^3/uL (1.5-6.6) 04/30/23 08:56 Lymph # (Auto) 0.7 10^3/uL (1.5-3.5) L 04/30/23 08:56 [place] # (Auto) 0.4 10^3/uL (0.0-1.0) 04/30/23 08:56 Eos # (Auto) 0.2 10^3/uL (0.0-0.7) 04/30/23 08:56 Baso # (Auto) 0.0 10^3/uL (0.0-0.1) 04/30/23 08:56 Absolute Nucleated RBC 0.00 x10^3/uL 04/30/23 08:56 Nucleated RBC % 0.0 /100WBC 04/30/23 08:56 VBG pH 7.399 (7.31-7.41) 04/30/23 08:56 Ionized Calcium 1.13 mmol/L (1.15-1.33) L 04/30/23 08:56 Sodium 138 mmol/L (135-145) 04/30/23 08:56 Potassium 2.7 mmol/L (3.5-5.0) L 04/30/23 08:56 Chloride 112 mmol/L (101-111) H 04/30/23 08:56 Carbon Dioxide 21 mmol/L (21-32) 04/30/23 08:56 Anion Gap 5.0 (6-13) L 04/30/23 08:56 BUN 9 mg/dL (6-20) 04/30/23 08:56 Creatinine 0.8 mg/dL (0.6-1.2) 04/30/23 08:56 Estimated GFR (MDRD) 94 (>89) 04/30/23 08:56 Glucose 116 mg/dL (70-100) H 04/30/23 08:56 Calcium 7.9 mg/dL (8.5-10.3) L 04/30/23 08:56 Ionized Calcium YES 04/30/23 08:56 Total Bilirubin 1.4 mg/dL (0.2-1.0) H 04/28/23 04:00 AST 20 IU/L (10-42) 04/28/23 04:00 ALT 19 IU/L (10-60) 04/28/23 04:00 Alkaline Phosphatase 127 IU/L (42-121) H 04/28/23 04:00 Total Protein 8.4 g/dL (6.7-8.2) H 04/28/23 04:00 Albumin 4.0 g/dL (3.2-5.5) 04/28/23 04:00 Globulin 4.4 g/dL (2.1-4.2) H 04/28/23 04:00 Albumin/Globulin Ratio 0.9 (1.0-2.2) L 04/28/23 04:00 Lipase 20 U/L (22-51) L 04/28/23 04:00 Urine Color YELLOW 04/28/23 06:12 Urine Clarity CLEAR (CLEAR) 04/28/23 06:12 Urine pH 8.0 PH (5.0-7.5) H 04/28/23 06:12 Ur Specific [place] 1.010 (1.002-1.030) 04/28/23 06:12 Urine Protein 30 mg/dL (NEGATIVE) H 04/28/23 06:12 Urine Glucose (UA) NEGATIVE mg/dL (NEGATIVE) 04/28/23 06:12 Urine Ketones 15 mg/dL (NEGATIVE) H 04/28/23 06:12 Urine Occult Blood NEGATIVE (NEGATIVE) 04/28/23 06:12 Urine Nitrite NEGATIVE (NEGATIVE) 04/28/23 06:12 Urine Bilirubin NEGATIVE (NEGATIVE) 04/28/23 06:12 Urine Urobilinogen 0.2 (NORMAL) E.U./dL (NORMAL) 04/28/23 06:12 Ur Leukocyte Esterase NEGATIVE (NEGATIVE) 04/28/23 06:12 Urine RBC 0-5 /HPF (0-5) 04/28/23 06:12 Urine WBC 0-3 /HPF (0-3) 04/28/23 06:12 Ur Squamous Epith Cells NONE SEEN (<= Few) 04/28/23 06:12 Urine Bacteria None Seen /HPF (None Seen) 04/28/23 06:12 Urine Mucus Few Strands 04/28/23 06:12 Ur Microscopic Review INDICATED 04/28/23 06:12 Urine Culture Comments NOT INDICATED 04/28/23 06:12 - Procedures Procedures: Procedures EXCISION OF SIGMOID COLON, ENDO, DIAGN (06/17/21) ABX Reporting Has patient been on IV antibiotics over the past 48 hours?: No
[2023-04-30 16:16] LABS: FECAL OCCULT BLOOD (FIT) NEGATIVE (NEGATIVE)
[2023-04-30] MEDS ORDERED: PANTOPRAZOLE 40 MG TABLET PO SCH (21:00)
[2023-05-01] MEDS: SODIUM CHLORIDE FLUSH 0.9% 10 ML SYRINGE IVP SCH ×2 (01:14→08:21)
[2023-05-01 06:15] LABS: BASOPHILS % (AUTO) 0.6 %; EOSINOPHILS # (AUTO) 0.1 10^3/uL (0.0-0.7); EOSINOPHILS % (AUTO) 4.1 %; HCT - HEMATOCRIT 33.3 % (42.0-52.0); HGB - HEMOGLOBIN 11.5 g/dL (14.0-18.0); LYMPHOCYTES # (AUTO) 0.8 10^3/uL (1.5-3.5); LYMPHOCYTES % (AUTO) 23.9 %; MEAN CORPUSCULAR HGB CONC 34.5 g/dL (32.0-36.0); MEAN CORPUSCULAR VOLUME 95.7 fL (80.0-94.0); MEAN PLATELET VOLUME 9.3 fL (7.4-11.4); MONOCYTES # (AUTO) 0.3 10^3/uL (0.0-1.0); NEUTROPHILS # (AUTO) 2.1 10^3/uL (1.5-6.6); NEUTROPHILS % (AUTO) 61.1 %; PLT - PLATELET COUNT 146 10^3/uL (130-450); RED BLOOD COUNT 3.48 10^6/uL (4.70-6.10); RED CELL DISTRIBUTION WIDTH 13.1 % (12.0-15.0); WHITE BLOOD COUNT 3.4 x10^3/uL (4.8-10.8)
[2023-05-01 06:21] LABS: BUN - BLOOD UREA NITROGEN 5 mg/dL (6-20); CALCIUM 8.1 mg/dL (8.5-10.3); CARBON DIOXIDE - CO2 23 mmol/L (21-32); CHLORIDE 113 mmol/L (101-111); CREATININE 0.8 mg/dL (0.6-1.2); GFR - MDRD 94 (>89); GLUCOSE 96 mg/dL (70-100); IONIZED CALCIUM IF INDICATED YES; POTASSIUM 3.1 mmol/L (3.5-5.0); SODIUM 140 mmol/L (135-145)
[2023-05-01] MEDS: SODIUM CHLORIDE 0.9% 1,000 ML IV SCH (06:24)
[2023-05-01 06:28] LABS: CALCIUM, IONIZED 1.15 mmol/L (1.15-1.33); VBG PH 7.355 (7.31-7.41)
[2023-05-01] MEDS ORDERED: POTASSIUM CHLORIDE 20 MEQ TABLET PO SCH (08:00)
[2023-05-01] MEDS: TAMSULOSIN 0.4 MG CAPSULE PO SCH (08:21)
[2023-05-01 08:31] VITALS: BP 117/52
--- NOTE | 2023-05-01 13:56 | Discharge Plan ---
Discharge Plan Problem Reviewed?: Yes Disposition: Home, Self Care Condition: Stable Diet: Soft (low fiber) Weight Bearing: Full Weight No Smoking: If you smoke, Please STOP! Call for help. Follow-up with: Selam Gonzalez ARNP [Physician No Access] -
--- NOTE | 2023-05-01 13:59 | DISCHARGE SUMMARY ---
Discharge Summary Admit Date: 04/28/23 Discharge Date: 05/01/23 Code Status: Attempt Resuscitation Condition at Discharge: Stable Discharge Disposition: 01 Home, Self Care - DIAGNOSES Admission Diagnoses: Partial small bowel obstruction Stage IV colon cancer Discharge Diagnoses with Status of Each Condition: Partial SBO,resolved Stage 4 colon cancer - HPI History of Present Illness: 77-year-old male past medical history significant for stage IV colon cancer followed by Dr. Dinah Benavides who does have a history of small bowel obstructions last was in January which resolved with bowel rest. Patient has been in here and has been tolerating progression of clear to full liquid to soft low fiber diet and will be discharged home today. - HOSPITAL COURSE Hospital Course: See HPI - ALLERGIES Allergies/Adverse Reactions: Allergies Allergy/AdvReac Type Severity Reaction Status Date / Time Chemo Allergy Unknown Uncoded 04/28/23 03:28 - MEDICATIONS Home Medications: Ambulatory Orders Medication Instructions Recorded Confirmed Ferrous Gluconate [Fergon] 324 mg PO DAILYWM #30 tablet 10/22/21 04/28/23 Multivitamin W/Minerals [Theragran 1 tab PO DAILYWM #30 tablet 10/22/21 04/28/23 M] Tamsulosin [Flomax] 0.4 mg PO DAILY 11/10/21 04/28/23 Acetaminophen [Pain Relief Extra 500 - 1,000 mg PO Q8HR PRN 07/12/22 04/28/23 Strength] Pantoprazole [Protonix] 40 mg PO QPM 07/12/22 04/28/23 Potassium Chloride 20 meq PO DAILY 07/12/22 04/28/23 Glucos Sul 2Kcl/MSM/Chond/C/Mn 1 each PO BID 01/20/23 04/28/23 [Glucosamine Chondroitin Cap] Zinc Sulfate 220 mg PO DAILY 01/20/23 04/28/23 Ondansetron Odt [Zofran Odt] 4 mg TL Q6HR PRN #30 tab 01/21/23 04/28/23 - PHYSICAL EXAM AT DISCHARGE General Appearance: positive: No acute distress, Alert Neck: positive: Nml inspection Respiratory: positive: Breath sounds nml Cardiovascular: positive: Regular rate & rhythm, No murmur Abdomen: positive: Other (. Patient does have stool output into his ostomy times approximately the last 2-3 days.) - LABS Result Diagrams: 05/01/23 05:35 05/01/23 05:35 - FOLLOW UP Follow Up: Patient is to follow-up with Selam Gonzalez NP in 3 to 4 days sooner if problems - TIME SPENT Time Spent in Discharge (Minutes): 35
== END 2023-05-01 14:48 | disposition home or self-care (01) | DRG 389 ==
LOC: ED 03:10 → MS2 08:19
PROVIDERS: ADMIT Specialist; ATTEND Specialist
DX: K56.600 Partial intestinal obstruction, unspecified as to cause (principal); C18.9 Malignant neoplasm of colon, unspecified; C78.00 Secondary malignant neoplasm of unspecified lung; N40.0 Benign prostatic hyperplasia without lower urinary tract symptoms; I25.10 Atherosclerotic heart disease of native coronary artery without angina pectoris; K21.9 Gastro-esophageal reflux disease without esophagitis; M19.90 Unspecified osteoarthritis, unspecified site; Z93.3 Colostomy status; Z90.49 Acquired absence of other specified parts of digestive tract; Z92.21 Personal history of antineoplastic chemotherapy
CPT/HCPCS: 36415; 74177; 80048; 80053; 81001; 82274; 82330; 83690; 85025; 96374; 96375; 99284; 99285; A9270; J3490; Q9967; 81003; 87086

== ENCOUNTER 2023-09-08 08:00 | Outpatient (CLI) | payer MEDICARE | END 2023-09-08 23:59 | disposition home or self-care (01) | LOC: LAB.S 08:00 | PROVIDERS: ATTEND Physician Assistant | DX: L02.212 Cutaneous abscess of back [any part, except buttock and flank] (principal) | CPT/HCPCS: 87070; 87077; 87181; 87205 ==

== ENCOUNTER 2024-01-07 17:52 | Emergency (ER) | payer MEDICARE ==
--- NOTE | 2024-01-07 18:38 | ED Physician Documentation ---
PD HPI ABD PAIN - Stated complaint Stated Complaint: VOMIT/WEAKNESS - Chief complaint Chief Complaint: Abd Pain - History obtained from History obtained from: Patient - Additional information Additional information: 78-year-old gentleman with history of metastatic rectal cancer undergoing treatment with Keytruda currently, with plan for upcoming radiation at [facility]. He has a history of bowel blockages related to his cancer and ulcer disease. Last night at 1130 he started vomiting it was quite dark. He has some abdominal pain but he thinks it is only from the vomiting. No fevers. No sick contacts. PD PAST MEDICAL HISTORY - Past Medical History Past Medical History: Yes Cardiovascular: None Respiratory: None Neuro: None Endocrine/Autoimmune: None GI: Ulcers, Hemorrhoids, Cholelithiasis, Other : Benign prostate hypertrophy HEENT: Chronic vision loss, Chronic hearing loss Psych: None Musculoskeletal: Osteoarthritis Derm: None - Past Surgical History Past Surgical History: Yes General: Cholecystectomy, Bowel surgery, Colonoscopy, Other Cardiovascular: Other - Present Medications Home Medications: Ambulatory Orders Medication Instructions Recorded Confirmed Ferrous Gluconate [Fergon] 324 mg PO DAILYWM #30 tablet 10/22/21 01/03/24 Multivitamin W/Minerals [Theragran 1 tab PO DAILYWM #30 tablet 10/22/21 01/03/24 M] Tamsulosin [Flomax] 0.4 mg PO DAILY 11/10/21 01/03/24 Acetaminophen [Pain Relief Extra 500 - 1,000 mg PO Q8HR PRN 07/12/22 01/03/24 Strength] Pantoprazole [Protonix] 40 mg PO QPM 07/12/22 01/03/24 Potassium Chloride 20 meq PO DAILY 07/12/22 01/03/24 Glucos Sul 2Kcl/MSM/Chond/C/Mn 1 each PO BID 01/20/23 01/03/24 [Glucosamine Chondroitin Cap] Zinc Sulfate 220 mg PO DAILY 01/20/23 01/03/24 Ondansetron Odt [Zofran Odt] 4 mg TL Q6HR PRN #30 tab 01/21/23 01/03/24 Mecobalamin [B12 Active] 1,000 mcg PO DAILY 01/03/24 01/03/24 Ondansetron Odt [Zofran] 4 mg TL Q6H PRN #10 tablet 01/07/24 - Allergies Allergies/Adverse Reactions: Allergies Allergy/AdvReac Type Severity Reaction Status Date / Time Chemo Allergy Unknown Uncoded 01/07/24 18:03 - Social History Does the pt smoke?: No Smoking Status: Never smoker Does the pt drink ETOH?: No Does the pt have substance abuse?: No - Immunizations Immunizations are current?: Yes Immunizations: TDAP >10years/unknown - POLST Patient has POLST: Yes POLST Status: Full Code PD ED PE NORMAL - Vitals Vital signs reviewed: Yes - General General: Alert and oriented X 3, Other (He appears uncomfortable and is retching) - Cardiac Cardiac: RRR, No murmur, Other (PowerPort left upper chest wall) - Respiratory Respiratory: No respiratory distress, Clear bilaterally - Abdomen Abdomen: Other (Mild diffuse tenderness with absent bowel sounds. That said there is soft liquid stool in his ostomy and he had just changed it.) - Neuro Neuro: Alert and oriented X 3, Normal speech Results - Vitals Vitals: Vital Signs - 24 hr 01/07/24 18:00 Temperature 36.9 C Heart Rate 88 Respiratory 18 Rate Blood Pressure 110/66 O2 Saturation 99 Oxygen O2 Source Room air - Labs Labs: Laboratory Tests 01/07/24 01/07/24 01/07/24 19:51 19:51 19:51 WBC 8.4 RBC 4.57 L Hgb 15.4 Hct 44.3 MCV 96.9 H MCH 33.7 H MCHC 34.8 RDW 13.0 Plt Count 188 MPV 9.3 Neut # (Auto) 7.1 H Lymph # (Auto) 0.5 L [place] # (Auto) 0.8 Eos # (Auto) 0.0 Baso # (Auto) 0.0 Absolute Nucleated RBC 0.00 Nucleated RBC % 0.0 PT 13.9 H INR 1.3 H Sodium 138 Potassium 3.0 L Chloride 97 L Carbon Dioxide 31 Anion Gap 10.0 BUN 24 H Creatinine 1.0 Estimated GFR (MDRD) 73 L Glucose 122 H Calcium 9.8 Total Bilirubin 1.6 H AST 16 ALT 13 Alkaline Phosphatase 106 Total Protein 7.9 Albumin 4.2 Globulin 3.7 Albumin/Globulin Ratio 1.1 Lipase < 10 L - Rads (name of study) CT abdomen and pelvis Relevant Findings:: Final report received, EMP independent interpretation of test PD Medical Decision Making - ED course ED course: 78-year-old gentleman with known metastatic rectal cancer presents with nausea and vomiting that is fairly acute. The vomit was dark but his H&H here is good showing no evidence of bleeding. His white count was normal as well. He did have elevated BUN and low potassium on CMP and this was treated with IV fluids and IV potassium. After some Reglan he was feeling much better and requested discharge. We did discuss the findings on his CT which include likely worsening metastatic disease. He did have significant ostomy output here corresponding with no finding of SBO o CT. n Departure - Departure Disposition: Home, Self Care Clinical Impression: Nausea and vomiting Qualifiers: Vomiting type: unspecified Qualified Code(s): R11.2 - Nausea with vomiting, unspecified Condition: Good Record reviewed to determine appropriate education?: Yes Instructions: ED Nausea Vomiting Prescriptions: Ondansetron Odt [Zofran] 4 mg TL Q6H PRN #10 tablet PRN Reason: Nausea / Vomiting Comments: As discussed, thankfully no sign of bowel blockage tonight. You did have some worsening as you know of the metastatic disease in your lung and a new area of concern in your pelvis. Please discuss this with Dr. Benavides, call on Tuesday for an appointment. I would do a clear liquid diet for the next 12 to 24 hours slowly advancing tube more regular food if you are feeling well during that time. Return if worse or if you develop new concerning symptoms. Forms: PCP List
[2024-01-07] MEDS: MAG HYDROX/AL HYDROX/SIMETH 30 ML UDC PO STA (18:52)
[2024-01-07] MEDS: LIDOCAINE OINTMENT 5% 35.44 GM TUBE TOP STA (19:10)
[2024-01-07] MEDS: METOCLOPRAMIDE 10 MG/2 ML VIAL IVP STA (19:41)
[2024-01-07] MEDS: SODIUM CHLORIDE 0.9% 1,000 ML IV STA ×2 (20:04→23:01)
[2024-01-07 20:06] LABS: HCT - HEMATOCRIT 44.3 % (42.0-52.0); HGB - HEMOGLOBIN 15.4 g/dL (14.0-18.0); LYMPHOCYTES # (AUTO) 0.5 10^3/uL (1.5-3.5); LYMPHOCYTES % (AUTO) 6.3 %; MEAN CORPUSCULAR HEMOGLOBIN 33.7 pg (27.0-31.0); MEAN CORPUSCULAR HGB CONC 34.8 g/dL (32.0-36.0); MEAN CORPUSCULAR VOLUME 96.9 fL (80.0-94.0); MEAN PLATELET VOLUME 9.3 fL (7.4-11.4); MONOCYTES # (AUTO) 0.8 10^3/uL (0.0-1.0); MONOCYTES % (AUTO) 9.8 %; NEUTROPHILS # (AUTO) 7.1 10^3/uL (1.5-6.6); NEUTROPHILS % (AUTO) 83.8 %; PLT - PLATELET COUNT 188 10^3/uL (130-450); RED BLOOD COUNT 4.57 10^6/uL (4.70-6.10); WHITE BLOOD COUNT 8.4 x10^3/uL (4.8-10.8)
[2024-01-07] MEDS ORDERED: iohexoL-300 100 ML VIAL ONE (20:10)
[2024-01-07 20:14] LABS: INR 1.3 (0.8-1.2); PT - PROTHROMBIN TIME 13.9 secs (9.9-12.6)
[2024-01-07 20:22] LABS: ALBUMIN 4.2 g/dL (3.2-5.5); ALBUMIN/GLOBULIN RATIO 1.1 (1.0-2.2); ALKALINE PHOSPHATASE 106 IU/L (42-121); ALT ALANINE AMINOTRANSFERASE 13 IU/L (10-60); AST ASPARTATE AMINOTRANSFERASE 16 IU/L (10-42); BILIRUBIN,TOTAL 1.6 mg/dL (0.2-1.0); BUN - BLOOD UREA NITROGEN 24 mg/dL (6-20); CALCIUM 9.8 mg/dL (8.5-10.3); CARBON DIOXIDE - CO2 31 mmol/L (21-32); CHLORIDE 97 mmol/L (101-111); GFR - MDRD 73 (>89); GLUCOSE 122 mg/dL (74-104); LIPASE < 10 U/L (11-82); SODIUM 138 mmol/L (135-145); TOTAL PROTEIN 7.9 g/dL (6.4-8.9)
[2024-01-07] MEDS: iohexoL-300 100 ML VIAL IVP ONE (21:08)
[2024-01-07] MEDS: POTASSIUM CHLOR 10 MEQ/100 ML 10 MEQ/100 ML BAG IV STA ×2 (21:17→23:02)
[2024-01-07] MEDS ORDERED: POTASSIUM CHLOR 10 MEQ/100 ML 10 MEQ/100 ML BAG IV STA (21:34)
--- NOTE | 2024-01-07 21:38 | CT Report ---
PROCEDURE: Abdomen/Pelvis W INDICATIONS: IV only, abd pain vomit, rectal ca CONTRAST: No oral contrast. Intravenous nonionic 100 ML OMNI 300 TECHNIQUE: After the administration of intravenous contrast, a CT scan of the abdomen and pelvis was performed. Images were recorded and evaluated at appropriate window settings. Reformats: coronal and sagittal. F or radiation dose reduction, the following was used: automated exposure control, adjustment of mA and /or kV according to patient size. COMPARISON: Similar CT scans 11/01/2023 and 08/23/2023 reviewed.. FINDINGS: Image quality: Diagnostic. Lower chest: 2 ovoid posterior juxtapleural masses have sequentially enlarged, at each lung base, ove r the comparison 3 studies, and these appear to represent enlarging soft tissue masses. A lung mass i s not identified otherwise. Each now measures approximately 1.6 cm in maximal transverse dimension.. Liver: No solid mass. Gallbladder and biliary tree: Previously resected. Spleen: No splenomegaly. Pancreas: No pancreatic ductal dilation. Adrenals: No adrenal nodule. Kidneys and ureters: No hydronephrosis. No renal cystic lesion which requires follow up. No solid mas s. Stomach, bowel and peritoneum: No bowel distension. No pathologic free fluid. Lymph nodes: No central or retroperitoneal adenopathy. Vessels: No infrarenal aortic aneurysm. PELVIS Reproductive organs: Unremarkable. Bladder: No abnormal wall thickening, accounting for underdistention. Pelvic lymph nodes: No pelvic adenopathy by size criteria. Bones: No aggressive osseous abnormality. Other: No significant ventral or inguinal hernia. Left lower quadrant colostomy site. Several small b owel loops in the lower pelvis show mild fluid filling prominence, but etiology is uncertain. Apparen t prior sigmoid colectomy with mucous fistula at the rectum. Note is made of a soft tissue prominence along the presacral midline and left paramedian fatty soft tissues in the operative bed. This may re present an early manifestation of recurrent malignancy in that area given the greater degree of promi nence at that site versus the same area 08/23/2023. This soft tissue prominence now extends anteriorly towards the left seminal vesicle. IMPRESSION: Slowly growing posterior symmetric lung masses. Metastatic disease would be considered the most likel y cause. Mild prominence of fluid within scattered lower pelvic small bowel loops. Prior sigmoidectomy, rectal stump, left lower quadrant colostomy, presumably for colon carcinoma treatment. There is no sign of parastomal hernia, definite adhesion, volvulus or intussusception. A peritoneal mass impinging on the small bowel is not seen. Worrisome findings at the presacral midline and left paramedian posterior low pelvic soft tissues whe re a soft tissue prominence extends towards the left seminal vesicle and is more prominent than seen on a comparison CT from August of last year. Prior cholecystectomy. Reviewed by: James Mathews MD on 01/07/2024 9:37 PM PST Approved by: James Mathews MD on 01/07/2024 9:37 PM PST Station ID: [id number]
[2024-01-07] MEDS: ONDANSETRON ODT 4 MG Prepack 2 TL STA (23:02)
[2024-01-08 00:48] VITALS: BP 108/63; O2SAT 95
== END 2024-01-08 00:39 | disposition home or self-care (01) ==
LOC: ED 17:52
DX: R11.2 Nausea with vomiting, unspecified (principal); C20 Malignant neoplasm of rectum; C79.9 Secondary malignant neoplasm of unspecified site; Z79.899 Other long term (current) drug therapy
CPT/HCPCS: 36415; 74177; 80053; 83690; 85025; 85610; 96361; 96365; 96366; 96375; 99284; A9270; J2765; Q9967

== ENCOUNTER 2024-01-19 07:00 | Outpatient (CLI) | payer MEDICARE | END 2024-01-19 23:59 | disposition home or self-care (01) | LOC: LAB.S 07:00 | PROVIDERS: ATTEND Emergency Medicine | DX: L72.3 Sebaceous cyst (principal) | CPT/HCPCS: 87070; 87077; 87181; 87205 ==

== ENCOUNTER 2024-01-24 13:19 | Outpatient (CLI) | payer MEDICARE | END 2024-01-24 13:20 | disposition home or self-care (01) | LOC: RT 13:19 | PROVIDERS: ATTEND Internal Medicine | DX: C61 Malignant neoplasm of prostate (principal) | CPT/HCPCS: 94010 ==

== ENCOUNTER → 2024-01-24 | Outpatient (CLI) | payer MEDICARE | LOC: PC 08:00 | PROVIDERS: ATTEND Nurse Practitioner Adult Health | DX: Z51.5 Encounter for palliative care (principal); C20 Malignant neoplasm of rectum; C78.00 Secondary malignant neoplasm of unspecified lung; R93.5 Abnormal findings on diagnostic imaging of other abdominal regions, including retroperitoneum; Z90.49 Acquired absence of other specified parts of digestive tract; Z63.8 Other specified problems related to primary support group; R42 Dizziness and giddiness; Z93.3 Colostomy status; F41.9 Anxiety disorder, unspecified; Z71.89 Other specified counseling | CPT/HCPCS: 99215 ==

== ENCOUNTER 2024-03-15 08:00 | Outpatient (CLI) | payer MEDICARE | END 2024-03-15 23:59 | disposition home or self-care (01) | LOC: PC 08:00 | PROVIDERS: ATTEND Nurse Practitioner Adult Health | DX: Z51.5 Encounter for palliative care (principal); C78.01 Secondary malignant neoplasm of right lung; C20 Malignant neoplasm of rectum; K59.03 Drug induced constipation; T40.2X5A Adverse effect of other opioids, initial encounter; R53.1 Weakness; R53.83 Other fatigue; R06.09 Other forms of dyspnea; R11.0 Nausea; R14.0 Abdominal distension (gaseous); F41.9 Anxiety disorder, unspecified; N40.1 Benign prostatic hyperplasia with lower urinary tract symptoms; R33.8 Other retention of urine; Z71.89 Other specified counseling; Z93.3 Colostomy status; Z90.2 Acquired absence of lung [part of]; Z90.49 Acquired absence of other specified parts of digestive tract; Z79.899 Other long term (current) drug therapy | CPT/HCPCS: 99349 ==

== ENCOUNTER 2024-03-22 14:42 | Outpatient (CLI) | payer MEDICARE ==
--- NOTE | 2024-03-22 16:32 | XRAY Report ---
PROCEDURE: Chest 2V INDICATIONS: MALIGNANT NEOPLASM METASTATIC TO LUNGS TECHNIQUE: 2 views of the chest were acquired. COMPARISON: 11/01/2023. FINDINGS: Surgical changes and devices: Left chest wall port tip terminates in the cavoatrial junction.. Lungs and pleura: Stable bilateral lower lobe nodules. Stable left upper lobe nodule. Mediastinum: Mediastinal contours appear normal. Heart size is normal. Bones and chest wall: No suspicious bony lesions. Overlying soft tissues appear unremarkable. Hea led right posterior rib fracture deformity. IMPRESSION: No acute cardiopulmonary process. Stable lower lobe pulmonary nodules and left upper lobe nodule. Reviewed by: Derrick Prather MD on 03/22/2024 4:31 PM PDT Approved by: Derrick Prather MD on 03/22/2024 4:31 PM PDT Station ID: [id number]
== END 2024-03-22 14:43 | disposition home or self-care (01) ==
LOC: DI 14:42
PROVIDERS: ATTEND Surgery
DX: C78.01 Secondary malignant neoplasm of right lung (principal); C78.02 Secondary malignant neoplasm of left lung

== ENCOUNTER 2024-03-22 15:45 | Outpatient (CLI) | payer MEDICARE | END 2024-03-22 23:59 | disposition home or self-care (01) | LOC: PC 15:45 | PROVIDERS: ATTEND Nurse Practitioner Adult Health | DX: Z51.5 Encounter for palliative care (principal); C20 Malignant neoplasm of rectum; C78.00 Secondary malignant neoplasm of unspecified lung; N40.1 Benign prostatic hyperplasia with lower urinary tract symptoms; R33.8 Other retention of urine; Z90.2 Acquired absence of lung [part of]; R14.0 Abdominal distension (gaseous); Z90.49 Acquired absence of other specified parts of digestive tract; Z93.3 Colostomy status; Z48.00 Encounter for change or removal of nonsurgical wound dressing; M62.81 Muscle weakness (generalized) | CPT/HCPCS: 99215 ==

== ENCOUNTER 2024-04-19 13:31 | Outpatient (CLI) | payer MEDICARE ==
--- NOTE | 2024-04-19 17:34 | CT Report ---
PROCEDURE: Chest WO INDICATIONS: LUNG CA TECHNIQUE: A CT scan of the chest was performed. Intravenous contrast media was not administered. Images were re corded and evaluated at appropriate window settings. Reformats: axial MIP of the chest, coronal and s agittal. For radiation dose reduction, the following was used: automated exposure control, adjustment of mA and/or kV according to patient size. COMPARISON: 10/24/2023 FINDINGS: Image quality: Diagnostic. Chest wall and lower neck: No thyroid nodule which requires sonographic follow up. No axillary or sup raclavicular adenopathy by size. Lungs and pleura: No consolidation. Small right pleural effusion. Left upper lobe nodule measures 2.4 x 1.5 cm, previously 2.0 x 1.3 cm (series 4, image 29). Right lower lobe wedge resection. Left lower lobe solid nodule measures 1.8 x 1.2 cm, previously 1.4 x 1.1 cm Mediastinum: Heart size is normal. No pericardial effusion. No large vessel abnormality. No mediastin al adenopathy by size criteria. Small hiatal hernia. Moderate coronary artery calcifications. Left c hest wall port tip terminates in the cavoatrial junction. Bones: No aggressive osseous abnormality. Diffuse idiopathic skeletal hyperostosis. Upper Abdomen: Cholecystectomy. Similar cystic lesion of the spleen, likely benign in isolation and w ith fluid attenuation. IMPRESSION: Growing left upper lobe and left lower lobe nodules. Findings remain concerning for metastatic diseas e. Right lower lobe wedge resection without recurrent disease. Other chronic findings as above. Reviewed by: Derrick Prather MD on 04/19/2024 5:33 PM PDT Approved by: Derrick Prather MD on 04/19/2024 5:33 PM PDT Station ID: [id number]
== END 2024-04-19 13:32 | disposition home or self-care (01) ==
LOC: DI 13:31
PROVIDERS: ATTEND Surgery
DX: C78.01 Secondary malignant neoplasm of right lung (principal); C78.02 Secondary malignant neoplasm of left lung; C19 Malignant neoplasm of rectosigmoid junction

== ENCOUNTER 2024-04-28 03:21 | Outpatient (CLI) | payer MEDICARE | END 2024-04-28 23:59 | disposition critical access hospital (66) | LOC: EMS 03:21 | DX: R10.9 Unspecified abdominal pain (principal) | CPT/HCPCS: A0425; A0429 ==

== ENCOUNTER 2024-04-28 03:50 | Emergency (ER) | payer MEDICARE ==
--- NOTE | 2024-04-28 03:51 | ED Physician Documentation ---
PD HPI ABD PAIN - Stated complaint Stated Complaint: ABD PAIN - History obtained from History obtained from: Patient - Additional information Additional information: HPI from patient, EMS. MARYLOU. Patient complains of generalized abdominal pain, rated a 10 (on a scale of 1-10) by patient. It is worse with movement and palpation. 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 It is associated with nausea but no vomiting. 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 He underwent similar procedure on the right side in February. At that time, patient describes a post-operative course complicated by n/v and abdominal pain which he says was attributed to effects of anesthesia as well as opiate pain medications. Because of this previous post-operative issue, after having the left-sided procedure 04/23, he stayed in a hotel near [facility] in [place] after he was discharged to make sure that he did not have a recurrence of the symptoms before travelling all the way back to [facility]. Unfortunately, within less than 24 hours, he returned to [facility] (ER) due to abdominal pain; he was readmitted to [facility] on the 04/25, discharged the following day. Patient has the discharge summary from that visit and thes discharge instructions indicate diagnosis of ileus. The symptoms that he is presenting for at this time again feel similar to these previous post-operative episodes. He says he has been passing both gas and stool into his colostomy bag subsequent to discharge from [facility] on 04/26. He has not noticed any blood in the stool. Denies fever. Denies cough, shortness of breath. Review of Systems Constitutional: denies: Fever, Chills, Sweats Cardiac: reports: Reviewed and negative Respiratory: reports: Reviewed and negative GI: reports: Abdominal Pain, Nausea. denies: Abdominal Swelling, Vomiting PD PAST MEDICAL HISTORY - Past Medical History Cardiovascular: None Respiratory: None Neuro: None Endocrine/Autoimmune: None GI: Ulcers, Hemorrhoids, Cholelithiasis, Other : Benign prostate hypertrophy HEENT: Chronic vision loss, Chronic hearing loss Psych: None Musculoskeletal: Osteoarthritis Derm: None - Past Surgical History Past Surgical History: Yes General: Cholecystectomy, Bowel surgery, Colonoscopy, Other Cardiovascular: Other - Present Medications Home Medications: Ambulatory Orders Medication Instructions Recorded Confirmed Ferrous Gluconate [Fergon] 324 mg PO DAILYWM #30 tablet 10/22/21 03/06/24 Multivitamin W/Minerals [Theragran 1 tab PO DAILYWM #30 tablet 10/22/21 03/06/24 M] Tamsulosin [Flomax] 0.4 mg PO DAILY 11/10/21 03/06/24 Acetaminophen [Pain Relief Extra 500 - 1,000 mg PO Q8HR PRN 07/12/22 03/06/24 Strength] Pantoprazole [Protonix] 40 mg PO QPM 07/12/22 03/06/24 Potassium Chloride 20 meq PO DAILY 07/12/22 03/06/24 Glucos Sul 2Kcl/MSM/Chond/C/Mn 1 each PO BID 01/20/23 03/06/24 [Glucosamine Chondroitin Cap] Zinc Sulfate 220 mg PO DAILY 01/20/23 03/06/24 Ondansetron Odt [Zofran Odt] 4 mg TL Q6HR PRN #30 tab 01/21/23 03/06/24 Mecobalamin [B12 Active] 1,000 mcg PO DAILY 01/03/24 03/06/24 Ondansetron Odt [Zofran] 4 mg TL Q6H PRN #10 tablet 01/07/24 03/06/24 - Allergies Allergies/Adverse Reactions: Allergies Allergy/AdvReac Type Severity Reaction Status Date / Time Chemo Allergy Unknown Uncoded 04/28/24 03:57 - Social History Does the pt smoke?: No Smoking Status: Never smoker Does the pt drink ETOH?: No Does the pt have substance abuse?: No - Immunizations Immunizations are current?: Yes Immunizations: TDAP >10years/unknown - POLST Patient has POLST: Yes POLST Status: Full Code PD ED PE NORMAL - Vitals Vital signs reviewed: Yes - General General: Alert and oriented X 3, Well developed/nourished, Other (waxing and waning painful distress during H+P, at times appears to be in moderate-severe painful distress) - HEENT HEENT: Other (tacky mucous membranes) - Cardiac Cardiac: RRR, No murmur - Respiratory Respiratory: No respiratory distress, Clear bilaterally, Other (left posterol ateral surgical site is covered with small gauze under clear dressing. the gauze is clean/dry and thus the dressing is left in place) - Abdomen Abdomen: Soft PD ED PE EXPANDED - Abdomen Abdomen: Tender to palpation (mild TTP at periumbilicus without rebound or guarding). No: Distended Results - Vitals Vitals: Vital Signs - 24 hr 04/28/24 04/28/24 04/28/24 03:57 06:30 08:15 Temperature 36.6 C 36.6 C Heart Rate 68 64 83 Respiratory 22 16 18 Rate Blood Pressure 149/76 H 129/61 131/61 H O2 Saturation 99 100 98 04/28/24 10:42 Temperature Heart Rate 85 Respiratory 18 Rate Blood Pressure 143/66 H O2 Saturation 96 Oxygen O2 Source Room air - Labs Labs: Laboratory Tests 04/28/24 04/28/24 04:02 04:02 WBC 5.1 RBC 4.21 L Hgb 13.7 L Hct 40.9 L MCV 97.1 H MCH 32.5 H MCHC 33.5 RDW 13.4 Plt Count 195 MPV 9.4 Neut # (Auto) 3.8 Lymph # (Auto) 0.6 L Parmer # (Auto) 0.5 Eos # (Auto) 0.2 Baso # (Auto) 0.0 Absolute Nucleated RBC 0.00 Nucleated RBC % 0.0 Sodium 138 Potassium 3.2 L Chloride 103 Carbon Dioxide 23 Anion Gap 12.0 BUN 10 Creatinine 0.9 Estimated GFR (MDRD) 82 L Glucose 114 H Calcium 9.9 Total Bilirubin 0.8 AST 16 ALT 9 L Alkaline Phosphatase 86 Total Protein 7.3 Albumin 3.7 Globulin 3.6 Albumin/Globulin Ratio 1.0 Lipase 20 - Rads (name of study) CT A/P with IV contrast Relevant Findings:: Prelim report reviewed, See rad report PD Medical Decision Making - ED course Complexity details: reviewed results, re-evaluated patient, considered differential, d/w patient, d/w family ED course: No concerning nor diagnostic findings on CBC, ER abdominal panel. Incidental note is made of mild hypokalemia (3.2). WBC is normal. Patient is in waxing and waning painful distress during the initial H&P, at times appears to be in moderate to severe painful distress. His level of discomfort looks to be beyond what would realistically be expected to be adequately controlled with non-narcotic medications such as Toradol. I thus recommended low-dose morphine to patient and he is initially reluctant but eventually agreeable to this. He is given 4mg IV morphine sulfate as well as 40mg IV protonix. On reevaluation, he is in NAD and reports excellent pain relief with these medications. CT of the abdomen pelvis with IV contrast is undertaken. The radiologist interpretation of this study is "mechanical small bowel obstruction, transition in distal ileum, right side of the pelvis. The pattern is similar to the prior study, severity slightly increased." Note that the study that the radiologist is using for comparative purposes is from 01/07/2024 which was performed in this emergency department. On multiple reevaluations, he continues to be in NAD even several hours after the morphine was given. The patient's son eventually comes into the ER and is at the patient's bedside on one of the later evaluations in his stay on my shift. I discussed disposition options with them. My recommendation was that I would call the [facility] on-call surgeon to discuss possible observation inpatient and could be discharged with more confidence if he does not have recurrence of symptoms by the end of the day today. Son brings up the thought of doing a p.o. challenge as had been done on previous inpatient stays at [facility], typically leading to discharge if he is tolerating p.o. without recurrence of symptoms. Given how long it has been since he has had the morphine and patient's report of no recurrence of his abdominal pain, this is an increasingly reasonable option. Patient is given PO fluids and lynn crackers. Although this is only a small amount PO intake, another aspect favoring d/c is on reevaluation after PO challenge, he says he is actively having more gas and stool output into ostomy bag as I am standing at bedside. His abdomen is NT to palpation, he is in NAD and has been in NAD since the morphine was given IV hours ago, and now tolerating PO albeit small amounts. I feel comfortable with d/c home at this point but emphasized the most important aspects of return precautions with patient and his son. He has anti-nauseants and narcotic/opiate pain medication (which he says he will likely not take for fear of this causing further bowel motility issues) at home. Departure - Departure Disposition: 01 Home, Self Care Clinical Impression: Small bowel obstruction Condition: Good Instructions: Obstruction Sm Bowel Comments: No concerning findings on tonight's blood work; incidental note was made of potassium level slightly below normal range (3.2). You should mention this finding to your primary care provider when you next follow-up with them; they might recommend having this level rechecked within the next few weeks. The CT scan of your abdomen and pelvis had findings suggestive of a small bowel obstruction. Fortunately, you reported excellent relief of your pain with only a single dose (low-dose) of morphine through your IV. Several hours later, long after the morphine would have worn off, you were continuing to have no recurrence of your symptoms including with oral intake. At this point, it is safe and appropriate to discharge you home. If your symptoms recur or if you develop new/concerning signs/symptoms (such as fever, blood in vomit or stool, not tolerating any oral intake), you should return to the ER for reevaluation. Forms: PCP List Discharge Date/Time: 04/28/24 10:52
[2024-04-28] MEDS: SODIUM CHLORIDE 0.9% 1,000 ML IV STA (04:12)
[2024-04-28] MEDS: PANTOPRAZOLE 40 MG VIAL IVP STA (04:23)
[2024-04-28] MEDS: METOCLOPRAMIDE 10 MG/2 ML VIAL IVP STA (04:24)
[2024-04-28] MEDS: MORPHINE 2 MG/ML CARPUJECT IVP STA (04:31)
[2024-04-28 04:54] LABS: BASOPHILS % (AUTO) 0.2 %; EOSINOPHILS # (AUTO) 0.2 10^3/uL (0.0-0.7); EOSINOPHILS % (AUTO) 4.1 %; HCT - HEMATOCRIT 40.9 % (42.0-52.0); HGB - HEMOGLOBIN 13.7 g/dL (14.0-18.0); LYMPHOCYTES # (AUTO) 0.6 10^3/uL (1.5-3.5); LYMPHOCYTES % (AUTO) 11.1 %; MEAN CORPUSCULAR HEMOGLOBIN 32.5 pg (27.0-31.0); MEAN CORPUSCULAR HGB CONC 33.5 g/dL (32.0-36.0); MEAN CORPUSCULAR VOLUME 97.1 fL (80.0-94.0); MEAN PLATELET VOLUME 9.4 fL (7.4-11.4); MONOCYTES # (AUTO) 0.5 10^3/uL (0.0-1.0); MONOCYTES % (AUTO) 10.1 %; NEUTROPHILS # (AUTO) 3.8 10^3/uL (1.5-6.6); NEUTROPHILS % (AUTO) 74.3 %; PLT - PLATELET COUNT 195 10^3/uL (130-450); RED BLOOD COUNT 4.21 10^6/uL (4.70-6.10); RED CELL DISTRIBUTION WIDTH 13.4 % (12.0-15.0); WHITE BLOOD COUNT 5.1 x10^3/uL (4.8-10.8)
[2024-04-28] MEDS ORDERED: iohexoL-300 100 ML VIAL ONE (05:08)
[2024-04-28 05:13] LABS: ALBUMIN 3.7 g/dL (3.2-5.5); BILIRUBIN,TOTAL 0.8 mg/dL (0.2-1.0); CALCIUM 9.9 mg/dL (8.5-10.3); CREATININE 0.9 mg/dL (0.6-1.3); POTASSIUM 3.2 mmol/L (3.5-4.5); TOTAL PROTEIN 7.3 g/dL (6.4-8.9)
[2024-04-28] MEDS: iohexoL-300 100 ML VIAL IVP ONE (05:37)
--- NOTE | 2024-04-28 10:17 | CT Report ---
PROCEDURE: Abdomen/Pelvis W INDICATIONS: abd. pain CONTRAST: 100 ML OMNI 300 TECHNIQUE: After the administration of intravenous contrast, a CT scan of the abdomen and pelvis was performed. Images were recorded and evaluated at appropriate window settings. Reformats: coronal and sagittal. F or radiation dose reduction, the following was used: automated exposure control, adjustment of mA and /or kV according to patient size. COMPARISON: 01/07/2024, 04/21/2021. Correlation is also made with chest CT, 04/19/2024. FINDINGS: Image quality: Diagnostic. Lower chest: Small bilateral pleural effusions can be seen. Lung base nodules have been resected. Dep endent atelectasis can be seen at the lung bases. A small hiatal hernia is incidentally noted, with a ssociated distal esophageal thickening. Liver: No solid mass. Gallbladder: Cholecystectomy. Biliary tree: No intrahepatic or extrahepatic dilation, accounting for age. Spleen: No splenomegaly. A stable likely splenic cysts can again be seen. Pancreas: No pancreatic ductal dilation. Adrenals: No definite adrenal nodules are seen. There is a 1.5 cm nodule seen just superior to the le ft adrenal gland, yet not clearly arising from the adrenal gland itself. This is similar to 04/21/2021. Kidneys and ureters: No hydronephrosis. No renal cystic lesion which requires follow up. No solid mas s. A stable left renal cyst is seen, which is regarded to be benign. Stomach, bowel and peritoneum: Stable distal colectomy change can be seen. Presacral fluid can be see n. There is a left lower quadrant colostomy. The colon is relatively decompressed. Dilated loops of small bowel are seen, which are largely filled with fluid and measures 4.3 cm. The d istal small bowel is decompressed. There is a transition point seen within the right lower quadrant o f the abdomen, as demonstrated on series 2 image 127 and on series 4 image 74. The stomach is relatively decompressed at the time of this study, limiting its evaluation. A normal appendix is seen. Lymph nodes: No central or retroperitoneal adenopathy. Vessels: No infrarenal aortic aneurysm. Patent portal vein. PELVIS Reproductive organs: Unremarkable. Bladder: No abnormal wall thickening, accounting for underdistention. Pelvic lymph nodes: No pelvic adenopathy by size criteria. Bones: No aggressive osseous abnormality. Remote L2 and L4 compression deformities are seen. Other: No significant ventral or inguinal hernia. IMPRESSION: Small bowel obstruction, with a transition point seen within the right lower quadrant of the abdomen. Distal colectomy, with left lower quadrant ostomy. Small bilateral pleural effusions. Interval resection of lung base nodules. A small hiatal hernia is seen, with distal esophageal wall thickening. Please consider gastroesophage al reflux disease. There is a 1.5 cm nodule seen adjacent to the left adrenal gland, which is similar to 202 and likely benign. Additional findings: Mild dependent atelectasis at the lung bases Stable likely splenic cyst Cholecystectomy Normal appendix Remote L2 and L4 compression deformities Note: No significant discrepancy from the preliminary report. Reviewed by: Cole Gates MD on 04/28/2024 9:15 AM BEAR Approved by: Cole Gates MD on 04/28/2024 9:15 AM BEAR Station ID: [id number]
[2024-04-28 10:50] VITALS: BP 143/66; O2SAT 96
== END 2024-04-28 10:52 | disposition home or self-care (01) ==
LOC: ED 03:50
DX: K56.609 Unspecified intestinal obstruction, unspecified as to partial versus complete obstruction (principal); E87.6 Hypokalemia; Z90.2 Acquired absence of lung [part of]; Z90.49 Acquired absence of other specified parts of digestive tract; Z93.3 Colostomy status
CPT/HCPCS: 36415; 74177; 80053; 83690; 85025; 96374; 96375; 99284; J2765; Q9967

== ENCOUNTER 2024-05-01 08:00 | Outpatient (CLI) | payer MEDICARE | END 2024-05-01 23:59 | disposition home or self-care (01) | LOC: PC 08:00 | PROVIDERS: ATTEND Nurse Practitioner Adult Health | DX: Z51.5 Encounter for palliative care (principal); C20 Malignant neoplasm of rectum; C78.02 Secondary malignant neoplasm of left lung; C78.01 Secondary malignant neoplasm of right lung; E87.6 Hypokalemia; R14.0 Abdominal distension (gaseous); Z93.3 Colostomy status; G89.12 Acute post-thoracotomy pain; K21.9 Gastro-esophageal reflux disease without esophagitis; Z87.19 Personal history of other diseases of the digestive system; Z51.89 Encounter for other specified aftercare | CPT/HCPCS: 99215 ==

== ENCOUNTER 2024-07-10 08:00 | Outpatient (CLI) | payer MEDICARE | END 2024-07-10 23:59 | disposition home or self-care (01) | LOC: PC 08:00 | PROVIDERS: ATTEND Nurse Practitioner Adult Health | DX: Z51.5 Encounter for palliative care (principal); C20 Malignant neoplasm of rectum; C78.00 Secondary malignant neoplasm of unspecified lung; R53.83 Other fatigue; R05.2 Subacute cough; Z71.89 Other specified counseling | CPT/HCPCS: 99215 ==

== ENCOUNTER 2024-07-16 13:52 | Outpatient (CLI) | payer MEDICARE ==
[2024-07-16 14:27] LABS: ALBUMIN 3.7 g/dL (3.2-5.5); BILIRUBIN,TOTAL 0.7 mg/dL (0.2-1.0); CREATININE 0.9 mg/dL (0.6-1.3); POTASSIUM 3.8 mmol/L (3.5-4.5); TOTAL PROTEIN 7.5 g/dL (6.4-8.9)
[2024-07-16 14:38] LABS: THYROID STIMULATING HORMONE 3.77 uIU/mL (0.34-5.60)
== END 2024-07-16 13:53 | disposition home or self-care (01) ==
LOC: LAB 13:52
PROVIDERS: ATTEND Nurse Practitioner Adult Health
DX: C20 Malignant neoplasm of rectum (principal); R53.83 Other fatigue; E87.6 Hypokalemia
CPT/HCPCS: 36415; 80053; 84439; 84443

== ENCOUNTER 2025-02-14 12:03 | Inpatient (IN) ==
[2025-02-14 12:55] LABS: BASOPHILS % (AUTO) 0.2 %; EOSINOPHILS # (AUTO) 0.1 10^3/uL (0.0-0.7); EOSINOPHILS % (AUTO) 1.4 %; HCT - HEMATOCRIT 45.5 % (42.0-52.0); HGB - HEMOGLOBIN 15.5 g/dL (14.0-18.0); LYMPHOCYTES # (AUTO) 0.7 10^3/uL (1.5-3.5); LYMPHOCYTES % (AUTO) 13.7 %; MEAN CORPUSCULAR HEMOGLOBIN 33.4 pg (27.0-31.0); MEAN CORPUSCULAR HGB CONC 34.1 g/dL (32.0-36.0); MEAN CORPUSCULAR VOLUME 98.1 fL (80.0-94.0); MONOCYTES # (AUTO) 0.7 10^3/uL (0.0-1.0); MONOCYTES % (AUTO) 13.7 %; NEUTROPHILS # (AUTO) 3.5 10^3/uL (1.5-6.6); NEUTROPHILS % (AUTO) 70.8 %; PLT - PLATELET COUNT 181 10^3/uL (130-450); RED BLOOD COUNT 4.64 10^6/uL (4.70-6.10); RED CELL DISTRIBUTION WIDTH 14.5 % (12.0-15.0)
[2025-02-14 13:09] LABS: ALBUMIN 4.2 g/dL (3.2-5.5); ALKALINE PHOSPHATASE 98 IU/L (42-121); ALT ALANINE AMINOTRANSFERASE 18 IU/L (10-60); AST ASPARTATE AMINOTRANSFERASE 21 IU/L (10-42); BUN - BLOOD UREA NITROGEN 18 mg/dL (6-20); CALCIUM 9.1 mg/dL (8.5-10.3); CARBON DIOXIDE - CO2 26 mmol/L (21-32); CHLORIDE 101 mmol/L (101-111); CREATININE 1.1 mg/dL (0.6-1.3); GFR - MDRD 65 (>89); GLUCOSE 108 mg/dL (74-104); POTASSIUM 3.7 mmol/L (3.5-4.5); SODIUM 136 mmol/L (135-145); TOTAL PROTEIN 8.3 g/dL (6.4-8.9)
[2025-02-14 13:11] LABS: BILIRUBIN,URINE SMALL (NEGATIVE); GLUCOSE, URINE (UA) NEGATIVE (NEGATIVE); KETONES,URINE (UA) 40 mg/dL (NEGATIVE); LEUKOCYTE ESTERASE, URINE NEGATIVE (NEGATIVE); NITRITE,URINE NEGATIVE (NEGATIVE); OCCULT BLOOD,URINE SMALL (NEGATIVE); PH,URINE 5.5 PH (5.0-7.5); PROTEIN,URINE 30 mg/dL (NEGATIVE); UROBILINOGEN,URINE 0.2 (NORMAL) E.U./dL (NORMAL)
[2025-02-14 13:12] LABS: CLARITY,URINE CLEAR (CLEAR)
[2025-02-14 13:15] LABS: LIPASE < 10 U/L (11-82)
[2025-02-14 13:32] LABS: RBC,URINE 0-5 /HPF (0-5); SQUAMOUS EPITHELIAL CELL,UR RARE Squamous (<= Few); WBC,URINE 0-3 /HPF (0-3)
[2025-02-14 13:33] LABS: BACTERIA,URINE Few /HPF (None Seen); MUCUS,URINE Moderate Strands
[2025-02-14] MEDS ORDERED: iohexoL-300 100 ML VIAL ONE (13:41)
[2025-02-14] MEDS: iohexoL-300 100 ML VIAL IVP ONE (14:42)
[2025-02-14] MEDS: MORPHINE 10 MG/ML VIAL IVP STA (14:59)
[2025-02-14] MEDS: ONDANSETRON 4 MG/2 ML VIAL IVP STA (14:59)
--- NOTE | 2025-02-14 15:05 | CT Report ---
PROCEDURE: CT Abdomen/Pelvis W INDICATIONS: rule out SBO CONTRAST: 100 ML OMNI TECHNIQUE: After the administration of intravenous contrast, a CT scan of the abdomen and pelvis was performed. Images were recorded and evaluated at appropriate window settings. Reformats: coronal and sagittal. F or radiation dose reduction, the following was used: automated exposure control, adjustment of mA and /or kV according to patient size. COMPARISON: 01/29/2025. FINDINGS: Image quality: Diagnostic. Lower chest: Scarring in posterior aspect of bilateral lung bases are again seen unchanged from prior study. Heart size is enlarged, no pericardial effusion. Small to moderate size hiatal hernia. Liver: No solid mass. Gallbladder: Gallbladder is surgically absent. Biliary tree: No intrahepatic or extrahepatic dilation, accounting for age. Spleen: No splenomegaly. Cyst in posterior lateral aspect of spleen is again seen and unchanged. Pancreas: No pancreatic ductal dilation. Adrenals: No adrenal nodule. Kidneys and ureters: No hydronephrosis. Simple left renal cyst unchanged from prior study. No renal c ystic lesion which requires follow up. No solid mass. Stomach, bowel and peritoneum: Again noted is prior partial colectomy a left-sided ostomy. Mild fluid distention of small bowel loops are seen throughout abdomen with caliber change involving distal ile um in right lower quadrant and suggestion of distal ileal wall thickening best seen on series 3 image 122 and series 5 image 40. No significant distention of colon loops is seen. No other area of abnorm al bowel wall thickening. No free fluid of free air. Lymph nodes: No central or retroperitoneal adenopathy. Vessels: No infrarenal aortic aneurysm. Patent portal vein. PELVIS Reproductive organs: Unremarkable. Bladder: No abnormal wall thickening. Pelvic lymph nodes: No pelvic adenopathy by size criteria. Bones: No aggressive osseous abnormality. Other: No significant ventral or inguinal hernia. IMPRESSION: 1. Finding is concerning for moderate grade distal small bowel obstruction involving distal ileum in right lower quadrant as above. Questionable wall thickening involving distal ileum concerning for low -grade enteritis. No abscess collection. No free fluid of free air. 2. Other findings are not significantly changed from prior study. Reviewed by: Arias [facility] MD on 02/14/2025 3:04 PM PDT Approved by: Arias [facility] MD on 02/14/2025 3:04 PM PDT Station ID: [id number]
[2025-02-14] MEDS: MIDAZOLAM 2 MG/2 ML VIAL IVP STA (15:47)
--- NOTE | 2025-02-14 17:09 | XRAY Report ---
PROCEDURE: XR Abdomen 1 V INDICATIONS: NGT placement TECHNIQUE: One view of the abdomen acquired. COMPARISON: CT abdomen and pelvis 02/14/2025. CT chest 01/29/2025. FINDINGS: Surgical changes and devices: Enteric tube in the proximal stomach. A central venous line is present. . Bowel: Multiple dilated loops of small bowel. A gastric bubble is seen. Lung bases are clear. Soft tissues: Excreted contrast in the kidneys. No suspicious abdominal calcifications. Visualized solid organ contours appear normal in size. Bones: No suspicious bony lesions. IMPRESSION: Enteric tube coursing into the stomach. Multiple persistent dilated loops of small bowel. Reviewed by: Farhad Ocampo MD on 02/14/2025 5:08 PM PDT Approved by: Farhad Ocampo MD on 02/14/2025 5:08 PM PDT Station ID: [id number]
--- NOTE | 2025-02-14 17:18 | HISTORY & PHYSICAL EXAMINATION ---
Chief Complaint Chief Complaint Chief Complaint: Abdominal pain History of Present Illness Admitted From Admitted From:: Home History Obtained From History obtained from: Interview with patient, son History of Present Illness HPI Comment/Other: 79-year-old male PMH significant for colon cancer with mets to lung who is status post colectomy/colostomy, parastomal hernia who presents to the ED with gradually worsening nausea, vomiting, abdominal pain. He reports reduced output in his colostomy. He denies fever, chills, chest pain, dyspnea. In the ER, CT abdomen/pelvis was performed which showed moderate grade distal small bowel obstruction, possible low-grade enteritis. General surgery was contacted by ER physician, and decision was made to admit to medicine with surgical consult Meds/Allgy Home Medications Ambulatory Orders Medication Instructions Recorded Confirmed ferrous gluconate 324 mg (38 mg 324 mg PO DAILYWM #30 tabs 10/22/21 12/14/24 iron) tablet [id number] 1 tab PO DAILYWM #30 tabs 10/22/21 12/14/24 fumarate 19 mg-folic acid 400 mcg tablet (Therapeutic-M) acetaminophen 500 mg tablet (Pain 500 - 1,000 mg PO Q8HR PRN Pain 07/12/22 12/10/24 Relief Extra Strength (acetaminophen)) potassium chloride 10 mEq 20 meq PO DAILY 07/12/22 12/14/24 capsule,extended release glucosamine sulf dipot 1 ea PO BID 01/20/23 12/10/24 chlr,msm,chond 550 mg-C 30 mg-patrick 1 mg capsule (Glucosamine Chondroitin) ondansetron 4 mg disintegrating 4 mg translingual Q6HR PRN Nausea 01/21/23 12/10/24 tablet / Vomiting #30 tabs mecobalamin (vitamin B12) 1,000 1,000 mcg PO DAILY 01/03/24 12/14/24 mcg chewable tablet (B12 Active) metoclopramide HCl 10 mg tablet 10 mg PO QID 12/10/24 12/14/24 (Reglan) esomeprazole magnesium 40 mg 40 mg PO QDAY #90 caps 02/04/25 capsule,delayed release (Nexium) tamsulosin 0.4 mg capsule 0.4 mg PO BID 3 months #180 caps 02/04/25 ondansetron 4 mg disintegrating 4 mg PO Q8H PRN nausea and 02/13/25 tablet vomiting #20 tabs Allergies Allergies Allergy/AdvReac Type Severity Reaction Status Date / Time hydrocodone AdvReac nausea Verified 02/14/25 12:20 Chemo Allergy Unknown Uncoded 02/14/25 12:20 [facility] Active Problems All Active Problems (Updated 02/14/25 @ 17:17 by Gennaro Noriega MD) SBO (small bowel obstruction) (Acute) Nausea vomiting and diarrhea (Acute) Mass of right side of neck (Acute) Rectal cancer metastasized to lung (Acute) Parastomal hernia (Acute) Healthcare maintenance (Acute) Edema, unspecified (Acute) Abdominal pain (Acute) Neutropenic colitis (Acute) Hypoglycemia (Acute) Physical deconditioning (Acute) Acidosis, hyperchloremic (Acute) Hypernatremia (Acute) Hypotension (Acute) Lactic acidosis (Acute) Moderate malnutrition (Chronic) Dyspnea (Acute) Dehydration (Acute) Hypoxia (Acute) Acute kidney injury (Acute) Adynamic ileus (Acute) Metabolic acidosis with respiratory alkalosis (Acute) Chemotherapy induced neutropenia (Acute) Hypokalemia (Acute) Medical History Medical History (Updated 02/14/25 @ 17:17 by Gennaro Noriega MD) SVT (supraventricular tachycardia) Adenocarcinoma of rectum, stage 3 Small bowel obstruction Small bowel obstruction due to adhesions Vomiting Small bowel obstruction Nausea and vomiting Partial small bowel obstruction 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 Social History Social History (Updated 12/10/24 @ 12:41 by Nhung Walls RN) Smoking Status: Never smoker Do you vape?: No Living arrangement: At home Living Condition: With family Relationship: Level: Independent Do you feel safe in your home environment?: Yes Suffered physical, verbal, emotional, or financial abuse?: No History of Abuse: No ETOH Use: None Substance Use: denies use POLST Patient has POLST: Yes POLST Status: Full Code Review of Systems Status of ROS: 10 or more systems reviewed and unremarkable except as noted in history and below Constitutional Denies: Fever or Chills Ears, nose, mouth, and throat Reports: Throat pain (Recent URI) and Other (Cyst on right side of throat, Already being managed outpatient) Cardiovascular Denies: chest pain or shortness of breath with exertion Respiratory Denies: Shortness of breath Gastrointestinal Reports: Abdominal pain, Nausea and Vomiting Exam Constitutional normal general appearance and no apparent distress HENMT normocephalic and head/scalp atraumatic Eyes PERRL Neck/C-Spine Cyst on right side of throat Chest inspection of chest normal and palpation of chest normal Respiratory breath sounds equal bilaterally Cardiovascular normal heart rate noted Gastrointestinal Protuberant abdomen, tender to palpation Extremities normal to inspection Neurology GCS 15 Psychiatry oriented x3 Skin skin color normal Conclusion/Plan Problem List (1) SBO (small bowel obstruction): Plan: Surgery contacted by ER provider NG tube in place I am continuing a low intermittent suction with breaks for p.o. medication Small bowel follow-through in a.m. I am starting LR at 100 Plan Admit inpatient med floor Full code His son is his surrogate decision maker/DPOA They report having POLST form at home, instructed son to bring this in so we can get it scanned Lab Results Lab results reviewed: Yes 02/14/25 12:43 02/14/25 12:43 Diagnostic Imaging Results Diagnostic Imaging Results: positive Final report reviewed Diagnostic Imaging Results Comments: CT abdomen/pelvis as above Core Measures Anticipated LOS I expect patient to be DC'd or transferred within 96 hours.: Yes DVT/VTE - Prophylaxis VTE/DVT Prophylaxis med ordered at admit?: Yes
--- NOTE | 2025-02-14 17:19 | ED Physician Documentation ---
History of Present Illness Stated complaint Stated Complaint: GI,N/V Chief complaint Chief Complaint: Abd Pain Additonal information Additional information: 79-year-old with past medical significant for colorectal carcinoma status post hemicolectomy with ostomy presents to the emergency department chief complaint abdominal distention, nausea, vomiting. States "I have a bowel obstruction". States 1 day history abdominal distention, decreased output through his ostomy, nausea and vomiting at home. Reports similar symptoms in the past that were managed with a 4-day hospital stay. Denies any fever, chills, chest pain, shortness of breath Taylor Coma Scale Assess Eye opening: Spontaneous Verbal response: Oriented Motor response: Obeys Commands Total score: 15 Review of Systems Status of ROS: 10 or more systems reviewed and unremarkable except as noted in history and below Gastrointestinal Reports: Abdominal pain, Abdominal distention, Nausea, Vomiting and Constipation Meds/Allgy Home Medications Ambulatory Orders Medication Instructions Recorded Confirmed ferrous gluconate 324 mg (38 mg 324 mg PO DAILYWM #30 tabs 10/22/21 02/15/25 iron) tablet [id number] 1 tab PO DAILYWM #30 tabs 10/22/21 02/15/25 fumarate 19 mg-folic acid 400 mcg tablet (Therapeutic-M) acetaminophen 500 mg tablet (Pain 500 - 1,000 mg PO Q8HR PRN Pain 07/12/22 02/15/25 Relief Extra Strength (acetaminophen)) potassium chloride 10 mEq 20 meq PO DAILY 07/12/22 02/15/25 capsule,extended release glucosamine sulf dipot 1 ea PO BID 01/20/23 02/15/25 chlr,msm,chond 550 mg-C 30 mg-patrick 1 mg capsule (Glucosamine Chondroitin) mecobalamin (vitamin B12) 1,000 1,000 mcg PO DAILY 01/03/24 02/15/25 mcg chewable tablet (B12 Active) metoclopramide HCl 10 mg tablet 10 mg PO QID PRN nausea and 12/10/24 02/15/25 (Reglan) vomiting esomeprazole magnesium 40 mg 40 mg PO QDAY #90 caps 02/04/25 02/15/25 capsule,delayed release (Nexium) tamsulosin 0.4 mg capsule 0.4 mg PO BID 3 months #180 caps 02/04/25 02/15/25 Allergies Allergies Allergy/AdvReac Type Severity Reaction Status Date / Time hydrocodone AdvReac nausea Verified 02/14/25 12:20 Chemo Allergy Unknown Uncoded 02/14/25 12:20 PFS Active Problems All Active Problems (Updated 02/18/25 @ 00:00 by ) Nausea vomiting and diarrhea (Acute) Mass of right side of neck (Acute) Rectal cancer metastasized to lung (Acute) Parastomal hernia (Acute) Healthcare maintenance (Acute) Edema, unspecified (Acute) Abdominal pain (Acute) Neutropenic colitis (Acute) Hypoglycemia (Acute) Physical deconditioning (Acute) Acidosis, hyperchloremic (Acute) Hypernatremia (Acute) Hypotension (Acute) Lactic acidosis (Acute) Moderate malnutrition (Chronic) Dyspnea (Acute) Dehydration (Acute) Hypoxia (Acute) Acute kidney injury (Acute) Adynamic ileus (Acute) Metabolic acidosis with respiratory alkalosis (Acute) Chemotherapy induced neutropenia (Acute) Hypokalemia (Acute) Medical History Medical History SVT (supraventricular tachycardia) Adenocarcinoma of rectum, stage 3 Small bowel obstruction Small bowel obstruction due to adhesions Vomiting Small bowel obstruction Nausea and vomiting Partial small bowel obstruction 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 Surgical History Surgical History History of lung surgery Partial lung resection, x 2 History of cholecystectomy History of low anterior resection of rectum H/O inguinal hernia repair Right side, x 2 Social History Social History (Updated 02/14/25 @ 19:24 by Mandy Jacobsen MD) Smoking Status: Never smoker Second hand tobacco smoke exposure: No Do you dip or chew tobacco?: No Do you vape?: No Living arrangement: At home Living Condition: With family Relationship: Level: Independent Do you feel safe in your home environment?: Yes Suffered physical, verbal, emotional, or financial abuse?: No History of Abuse: No ETOH Use: None Substance Use: denies use 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 Ostomy is in place, stoma appears clean and dry. No output through her ostomy bag. Diminished bowel sounds in all quadrants. 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, no movement abnormality noted, no focal motor deficit noted and no sensory deficits noted Psychiatry mental status grossly normal and oriented x3 Skin skin color normal Results Vitals Vitals: Oxygen O2 Source Room air Labs Labs: Laboratory Tests 02/14/25 02/14/25 12:38 12:43 WBC 5.0 RBC 4.64 L Hgb 15.5 Hct 45.5 MCV 98.1 H MCH 33.4 H MCHC 34.1 RDW 14.5 Plt Count 181 MPV 9.0 Neut # (Auto) 3.5 Lymph # (Auto) 0.7 L [place] # (Auto) 0.7 Eos # (Auto) 0.1 Baso # (Auto) 0.0 Absolute Nucleated RBC 0.00 Nucleated RBC % 0.0 Sodium 136 Potassium 3.7 Chloride 101 Carbon Dioxide 26 Anion Gap 9.0 BUN 18 Creatinine 1.1 Estimated GFR (MDRD) 65 L Glucose 108 H Calcium 9.1 Total Bilirubin 1.0 AST 21 ALT 18 Alkaline Phosphatase 98 Total Protein 8.3 Albumin 4.2 Globulin 4.1 Albumin/Globulin Ratio 1.0 Lipase < 10 L Urine Color DARK YELLOW Urine Clarity CLEAR Urine pH 5.5 Ur Specific [place] >=1.030 H Urine Protein 30 H Urine Glucose (UA) NEGATIVE Urine Ketones 40 H Urine Occult Blood SMALL H Urine Nitrite NEGATIVE Urine Bilirubin SMALL H Urine Urobilinogen 0.2 (NORMAL) Ur Leukocyte Esterase NEGATIVE Urine RBC 0-5 Urine WBC 0-3 Ur Squamous Epith Cells RARE Squamous Urine Bacteria Few Urine Mucus Moderate Strands Ur Microscopic Review INDICATED Urine Culture Comments NOT INDICATED PD Medical Decision Making ED course Complexity details: reviewed old records, reviewed results, re-evaluated patient, considered differential, d/w patient and d/w industrial methods consultant ED course: 79-year-old presents with abdominal distention, nausea and vomiting. This is in setting known history of small bowel obstructions as well as colorectal carcinoma status post hemicolectomy with ostomy present. Afebrile, he medically stable and arrival to the emergency department. Lab work all very reassuring. No significant leukocytosis, hepatic or renal insufficiency. Patient CT demonstrates findings consistent with small bowel obstruction, discussed with hospital service, general surgery. Patient to be admitted on the hospitalist service for further evaluation and treatment. NG tube placed here in the emergency department with confirmation x-ray pending at this time. Discharge Plan Discharge Patient Disposition: [facility] DC/Xfer Condition: Fair Clinical Impression: SBO (small bowel obstruction) Interventions: ED Admission Assessment Last Done: 02/14/25 18:41
--- NOTE | 2025-02-14 19:16 | CONSULTATION NOTE ---
Referring Provider Name of Referring Provider:: Jaziel Aldridge) Consult Date: 02/14/25 Chief Complaint Chief Complaint Chief Complaint: I think I have an obstruction History of Present Illness Admitted From Admitted From:: ED History Obtained From Records Reviewed: yes History obtained from: patient, son, chart History of Present Illness HPI Comment/Other: This is a 79-year-old gentleman who came in with a 1 day history of worsening nausea, vomiting, and abdominal pain associated with decreased ostomy output.The patient believes his symptoms may be related to a recent URI that he has had for the last week. The patient has had 2 prior small bowel obstructions since his ultralow LAR surgery several years ago. His colon surgeon is Dr. Marietta Freedman at [facility] in [place]. The patient had metastatic rectal cancer to his lungs. He has had his primary tumor, and 2 lung metastases resected. He has undergone prior chemotherapy and radiation in the neoadjuvant setting. At the time of my exam, the patient is feeling much more comfortable. He denies any nausea. He has an NG tube in place. [facility] Active Problems All Active Problems SBO (small bowel obstruction) (Acute) Nausea vomiting and diarrhea (Acute) Mass of right side of neck (Acute) Rectal cancer metastasized to lung (Acute) Parastomal hernia (Acute) Healthcare maintenance (Acute) Edema, unspecified (Acute) Abdominal pain (Acute) Neutropenic colitis (Acute) Hypoglycemia (Acute) Physical deconditioning (Acute) Acidosis, hyperchloremic (Acute) Hypernatremia (Acute) Hypotension (Acute) Lactic acidosis (Acute) Moderate malnutrition (Chronic) Dyspnea (Acute) Dehydration (Acute) Hypoxia (Acute) Acute kidney injury (Acute) Adynamic ileus (Acute) Metabolic acidosis with respiratory alkalosis (Acute) Chemotherapy induced neutropenia (Acute) Hypokalemia (Acute) Medical History Medical History SVT (supraventricular tachycardia) Adenocarcinoma of rectum, stage 3 Small bowel obstruction Small bowel obstruction due to adhesions Vomiting Small bowel obstruction Nausea and vomiting Partial small bowel obstruction 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 Surgical History Surgical History History of lung surgery Partial lung resection, x 2 History of cholecystectomy History of low anterior resection of rectum H/O inguinal hernia repair Right side, x 2 Social History Social History (Updated 02/14/25 @ 19:24 by E Guillermina Jacobsen MD) Smoking Status: Never smoker Do you vape?: No Living arrangement: At home Living Condition: With family Relationship: Level: Independent Do you feel safe in your home environment?: Yes Suffered physical, verbal, emotional, or financial abuse?: No History of Abuse: No ETOH Use: None Substance Use: denies use 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 POLST Patient has POLST: Yes POLST Status: Full Code Meds/Allgy Home Medications Ambulatory Orders Medication Instructions Recorded Confirmed ferrous gluconate 324 mg (38 mg 324 mg PO DAILYWM #30 tabs 10/22/21 12/14/24 iron) tablet [id number] 1 tab PO DAILYWM #30 tabs 10/22/21 12/14/24 fumarate 19 mg-folic acid 400 mcg tablet (Therapeutic-M) acetaminophen 500 mg tablet (Pain 500 - 1,000 mg PO Q8HR PRN Pain 07/12/22 12/10/24 Relief Extra Strength (acetaminophen)) potassium chloride 10 mEq 20 meq PO DAILY 07/12/22 12/14/24 capsule,extended release glucosamine sulf dipot 1 ea PO BID 01/20/23 12/10/24 chlr,msm,chond 550 mg-C 30 mg-patrick 1 mg capsule (Glucosamine Chondroitin) ondansetron 4 mg disintegrating 4 mg translingual Q6HR PRN Nausea 01/21/23 12/10/24 tablet / Vomiting #30 tabs mecobalamin (vitamin B12) 1,000 1,000 mcg PO DAILY 01/03/24 12/14/24 mcg chewable tablet (B12 Active) metoclopramide HCl 10 mg tablet 10 mg PO QID 12/10/24 12/14/24 (Reglan) esomeprazole magnesium 40 mg 40 mg PO QDAY #90 caps 02/04/25 capsule,delayed release (Nexium) tamsulosin 0.4 mg capsule 0.4 mg PO BID 3 months #180 caps 02/04/25 ondansetron 4 mg disintegrating 4 mg PO Q8H PRN nausea and 02/13/25 tablet vomiting #20 tabs Allergies Allergies Allergy/AdvReac Type Severity Reaction Status Date / Time hydrocodone AdvReac nausea Verified 02/14/25 12:20 Chemo Allergy Unknown Uncoded 02/14/25 12:20 Results Lab Results Lab results reviewed: Yes 02/14/25 12:43 02/14/25 12:43 Other Lab Results: Lab Results x24hrs 02/14/25 02/14/25 Range/Units 12:43 12:38 WBC 5.0 (4.8-10.8) x10^3/uL RBC 4.64 L (4.70-6.10) 10^6/uL Hgb 15.5 (14.0-18.0) g/dL Hct 45.5 (42.0-52.0) % MCV 98.1 H (80.0-94.0) fL MCH 33.4 H (27.0-31.0) pg MCHC 34.1 (32.0-36.0) g/dL RDW 14.5 (12.0-15.0) % Plt Count 181 (130-450) 10^3/uL MPV 9.0 (7.4-11.4) fL Neut # (Auto) 3.5 (1.5-6.6) 10^3/uL Lymph # (Auto) 0.7 L (1.5-3.5) 10^3/uL [place] # (Auto) 0.7 (0.0-1.0) 10^3/uL Eos # (Auto) 0.1 (0.0-0.7) 10^3/uL Baso # (Auto) 0.0 (0.0-0.1) 10^3/uL Absolute Nucleated RBC 0.00 x10^3/uL Nucleated RBC % 0.0 /100WBC Sodium 136 (135-145) mmol/L Potassium 3.7 (3.5-4.5) mmol/L Chloride 101 (101-111) mmol/L Carbon Dioxide 26 (21-32) mmol/L Anion Gap 9.0 (6-13) BUN 18 (6-20) mg/dL Creatinine 1.1 (0.6-1.3) mg/dL Estimated GFR (MDRD) 65 L (>89) Glucose 108 H (74-104) mg/dL Calcium 9.1 (8.5-10.3) mg/dL Total Bilirubin 1.0 (0.2-1.0) mg/dL AST 21 (10-42) IU/L ALT 18 (10-60) IU/L Alkaline Phosphatase 98 (42-121) IU/L Total Protein 8.3 (6.4-8.9) g/dL Albumin 4.2 (3.2-5.5) g/dL Globulin 4.1 (2.1-4.2) g/dL Albumin/Globulin Ratio 1.0 (1.0-2.2) Lipase < 10 L (11-82) U/L Urine Color DARK YELLOW Urine Clarity CLEAR (CLEAR) Urine pH 5.5 (5.0-7.5) PH Ur Specific [place] >=1.030 H (1.002-1.030) Urine Protein 30 H (NEGATIVE) mg/dL Urine Glucose (UA) NEGATIVE (NEGATIVE) mg/dL Urine Ketones 40 H (NEGATIVE) mg/dL Urine Occult Blood SMALL H (NEGATIVE) Urine Nitrite NEGATIVE (NEGATIVE) Urine Bilirubin SMALL H (NEGATIVE) Urine Urobilinogen 0.2 (NORMAL) (NORMAL) E.U./dL Ur Leukocyte Esterase NEGATIVE (NEGATIVE) Urine RBC 0-5 (0-5) /HPF Urine WBC 0-3 (0-3) /HPF Ur Squamous Epith Cells RARE Squamous (<= Few) Urine Bacteria Few (None Seen) /HPF Urine Mucus Moderate Strands Ur Microscopic Review INDICATED Urine Culture Comments NOT INDICATED Diagnostic Imaging Results Diagnostic Imaging Results: positive Final report reviewed and Read independently Diagnostic Imaging Results Comments: The patient's CT scan of the abdomen and pelvis today demonstrates a possible small bowel obstruction with thickening of the terminal ileum. There is no free air or significant free fluid. The patient does have a small parastomal hernia, but there is no signs of transition point near the hernia. Conclusion and Plan Consultation Note Consultation Note: This is a 79-year-old gentleman with: 1. Small bowel obstruction I agree with allowing the patient to decompress with his NG tube overnight. -The patient's CT scan does demonstrate some thickening of his terminal ileus. It is possible that his symptoms are related to gastroenteritis and small bowel follow-through would be useful in differentiating this from true bowel obstruction. I recommend conservative management with small bowel follow-through with Gastrografin tomorrow morning The patient's prior small bowel obstructions have resolved with conservative management, and the patient, his son, and I continue to hope that this time it will also resolve with conservative management. If the patient needs surgery, he would like his colorectal surgeon, Dr. Marietta Freedman to be contacted and consulted prior to surgery. 2. History of metastatic rectal cancer, recent upper respiratory infection, GERD, BPH - Stable chronic medical problems As per primary team Home medications will need to be held currently as the patient is n.p.o. Thank you for consulting us in the care of this patient. The general surgery service will continue to follow the patient closely. My partner Dr. Boone Randhawa will be on-call starting at 7:00 tomorrow, 02/15/2025. Review of Systems Status of ROS: 10 or more systems reviewed and unremarkable except as noted in history and below Exam Exam GEN: No acute distress, appears stated age, alert and oriented HEENT: NCAT, MMM, EOMI, NG tube in place NEURO: CN II-XII grossly intact, no obvious focal deficits CV: RRR PULM: Nonlabored, on room air ABD: soft, mildly distended, non tender, no rebound or guarding, left sided colostomy with minimal stool in the bag. CIRCULATORY: no clubbing, cyanosis, or edema SKIN: no lesions appreciated LYMPH: no obvious lymphadenopathy MSK: 4/4 strength in all extremities PSYCH: Affect is appropriate
[2025-02-14] MEDS: LACTATED RINGERS 1,000 ML IV SCH (20:33)
[2025-02-14] MEDS: TAMSULOSIN 0.4 MG CAPSULE PO SCH (20:33)
[2025-02-14] MEDS: SODIUM CHLORIDE FLUSH 0.9% 10 ML SYRINGE IVP PRN (20:33)
[2025-02-15] MEDS: SODIUM CHLORIDE FLUSH 0.9% 10 ML SYRINGE IVP SCH (00:34)
[2025-02-15 05:58] LABS: EOSINOPHILS # (AUTO) 0.1 10^3/uL (0.0-0.7); EOSINOPHILS % (AUTO) 3.2 %; HCT - HEMATOCRIT 40.4 % (42.0-52.0); HGB - HEMOGLOBIN 13.9 g/dL (14.0-18.0); LYMPHOCYTES # (AUTO) 0.8 10^3/uL (1.5-3.5); LYMPHOCYTES % (AUTO) 22.1 %; MEAN CORPUSCULAR HEMOGLOBIN 33.4 pg (27.0-31.0); MEAN CORPUSCULAR HGB CONC 34.4 g/dL (32.0-36.0); MEAN CORPUSCULAR VOLUME 97.1 fL (80.0-94.0); MEAN PLATELET VOLUME 9.1 fL (7.4-11.4); MONOCYTES # (AUTO) 0.4 10^3/uL (0.0-1.0); MONOCYTES % (AUTO) 11.5 %; NEUTROPHILS # (AUTO) 2.1 10^3/uL (1.5-6.6); NEUTROPHILS % (AUTO) 62.9 %; PLT - PLATELET COUNT 143 10^3/uL (130-450); RED BLOOD COUNT 4.16 10^6/uL (4.70-6.10); RED CELL DISTRIBUTION WIDTH 14.4 % (12.0-15.0); WHITE BLOOD COUNT 3.4 x10^3/uL (4.8-10.8)
[2025-02-15 06:14] LABS: CALCIUM 8.7 mg/dL (8.5-10.3); POTASSIUM 4.3 mmol/L (3.5-4.5)
[2025-02-15] MEDS: ENOXAPARIN 40 MG/0.4 ML SYRINGE SUBQ SCH (08:45)
--- NOTE | 2025-02-15 12:26 | PHARMACY PROGRESS NOTE ---
Best Possible Medication History Admit Date and Time: 02/14/25 1754 Home Medications Medication Instructions Recorded Confirmed Type ferrous gluconate 324 mg (38 mg 324 mg PO DAILYWM #30 tabs 10/22/21 02/15/25 Rx iron) tablet [id number] 1 tab PO DAILYWM #30 tabs 10/22/21 02/15/25 Rx fumarate 19 mg-folic acid 400 mcg tablet (Therapeutic-M) acetaminophen 500 mg tablet (Pain 500 - 1,000 mg PO Q8HR PRN Pain 07/12/22 02/15/25 History Relief Extra Strength (acetaminophen)) potassium chloride 10 mEq 20 meq PO DAILY 07/12/22 02/15/25 History capsule,extended release glucosamine sulf dipot 1 ea PO BID 01/20/23 02/15/25 History chlr,msm,chond 550 mg-C 30 mg-patrick 1 mg capsule (Glucosamine Chondroitin) mecobalamin (vitamin B12) 1,000 1,000 mcg PO DAILY 01/03/24 02/15/25 History mcg chewable tablet (B12 Active) metoclopramide HCl 10 mg tablet 10 mg PO QID PRN nausea and 12/10/24 02/15/25 History (Reglan) vomiting esomeprazole magnesium 40 mg 40 mg PO QDAY #90 caps 02/04/25 02/15/25 Rx capsule,delayed release (Nexium) tamsulosin 0.4 mg capsule 0.4 mg PO BID 3 months #180 caps 02/04/25 02/15/25 Rx Processed by: Pharmacy Medications reviewed in ED?: No Medication History completed: No Patient Interview: Completed Secondary Source(s): Insurance records [facility] Statement: Per [facility] interview with patient and review of [facility] insurance records. As the person ultimately responsible for medication therapy, providers are able to order a medication from an existing home medication list in [facility] via the "Reconcile Routine" prior to Confirmation of that medication by it support manager. Such practice is discouraged except when the physician, in their clinical j udgment, deems that a medical need exists for a medication without regard to previous use.
[2025-02-15] MEDS ORDERED: HYDROmorphone 0.5 MG/0.5 ML SYRINGE IVP PRN (13:02)
--- NOTE | 2025-02-15 13:03 | PROVIDER PROGRESS NOTE ---
Subjective Prog Note Date Prog Note Date: 02/15/25 Subjective Pt reports feeling: No change Subjective: Reports no change in how his stomach feels. Small amount of ostomy output Current Medications Current Medications Current Medications: Current Medications Generic Name Dose Route Start Last Admin Trade Name Freq PRN Reason Stop Dose Admin Enoxaparin Sodium 40 mg 02/15/25 09:00 02/15/25 08:45 Enoxaparin 40 Mg/0.4 Ml Syringe SUBQ Not Given DAILY SPENCER Lactated Ringer's 1,000 mls @ 100 mls/hr 02/14/25 18:45 02/15/25 06:19 Lr IV 100 mls/hr .Q10H SPENCER Administration Sodium Chloride 10 ml 02/14/25 18:45 02/14/25 20:33 Sodium Chloride Flush 0.9% 10 Ml Syringe IVP 10 ml PRN PRN Administration NEEDED PER PROVIDER ORDERS Sodium Chloride 10 ml 02/15/25 01:00 02/15/25 08:42 Sodium Chloride Flush 0.9% 10 Ml Syringe IVP Not Given 0100,0900,1700 SPENCER Tamsulosin HCl 0.4 mg 02/14/25 21:00 02/15/25 08:42 Tamsulosin 0.4 Mg Capsule PO 0.4 mg BID SPENCER Administration Objective Vital Signs/Intake & Output Reviewed Vital Signs: Yes Vital Signs: Vital Signs x48h Temp Pulse Resp BP Pulse Ox 02/15/25 08:20 36.6 C 79 18 132/72 H 95 Intake & Output: Intake & Output 02/12/25 02/13/25 02/14/25 02/15/25 23:59 23:59 23:59 23:59 Intake Total 977 / 977 Output Total 50 / 50 475 / 475 Balance -50 / -50 502 / 502 Weight (kg) 85 kg Objective General Appearance: positive No acute distress and Alert Eyes Bilateral: positive Normal inspection and PERRL ENT: positive ENT inspection nml and Pharynx nml Neck: positive Nml inspection and Thyroid nml Respiratory: positive Chest non-tender and No respiratory distress Cardiovascular: positive Regular rate & rhythm Abdomen: positive Non-tender; negative No distention (Mild distention) Back: positive Nml inspection Skin: positive Color nml Extremities: positive Non-tender Neurologic/Psychiatric: positive Oriented x3 Lab Results 02/15/25 05:40 02/15/25 05:40 Other Labs: Lab Results x24hrs 02/15/25 02/14/25 02/14/25 Range/Units 05:40 12:43 12:38 WBC 3.4 L 5.0 (4.8-10.8) x10^3/uL RBC 4.16 L 4.64 L (4.70-6.10) 10^6/uL Hgb 13.9 L 15.5 (14.0-18.0) g/dL Hct 40.4 L 45.5 (42.0-52.0) % MCV 97.1 H 98.1 H (80.0-94.0) fL MCH 33.4 H 33.4 H (27.0-31.0) pg MCHC 34.4 34.1 (32.0-36.0) g/dL RDW 14.4 14.5 (12.0-15.0) % Plt Count 143 181 (130-450) 10^3/uL MPV 9.1 9.0 (7.4-11.4) fL Neut # (Auto) 2.1 3.5 (1.5-6.6) 10^3/uL Lymph # (Auto) 0.8 L 0.7 L (1.5-3.5) 10^3/uL [place] # (Auto) 0.4 0.7 (0.0-1.0) 10^3/uL Eos # (Auto) 0.1 0.1 (0.0-0.7) 10^3/uL Baso # (Auto) 0.0 0.0 (0.0-0.1) 10^3/uL Absolute Nucleated RBC 0.00 0.00 x10^3/uL Nucleated RBC % 0.0 0.0 /100WBC Sodium 137 136 (135-145) mmol/L Potassium 4.3 3.7 (3.5-4.5) mmol/L Chloride 105 101 (101-111) mmol/L Carbon Dioxide 24 26 (21-32) mmol/L Anion Gap 8.0 9.0 (6-13) BUN 14 18 (6-20) mg/dL Creatinine 1.0 1.1 (0.6-1.3) mg/dL Estimated GFR (MDRD) 72 L 65 L (>89) Glucose 86 108 H (74-104) mg/dL Calcium 8.7 9.1 (8.5-10.3) mg/dL Total Bilirubin 1.0 (0.2-1.0) mg/dL AST 21 (10-42) IU/L ALT 18 (10-60) IU/L Alkaline Phosphatase 98 (42-121) IU/L Total Protein 8.3 (6.4-8.9) g/dL Albumin 4.2 (3.2-5.5) g/dL Globulin 4.1 (2.1-4.2) g/dL Albumin/Globulin Ratio 1.0 (1.0-2.2) Lipase < 10 L (11-82) U/L Urine Color DARK YELLOW Urine Clarity CLEAR (CLEAR) Urine pH 5.5 (5.0-7.5) PH Ur Specific [place] >=1.030 H (1.002-1.030) Urine Protein 30 H (NEGATIVE) mg/dL Urine Glucose (UA) NEGATIVE (NEGATIVE) mg/dL Urine Ketones 40 H (NEGATIVE) mg/dL Urine Occult Blood SMALL H (NEGATIVE) Urine Nitrite NEGATIVE (NEGATIVE) Urine Bilirubin SMALL H (NEGATIVE) Urine Urobilinogen 0.2 (NORMAL) (NORMAL) E.U./dL Ur Leukocyte Esterase NEGATIVE (NEGATIVE) Urine RBC 0-5 (0-5) /HPF Urine WBC 0-3 (0-3) /HPF Ur Squamous Epith Cells RARE Squamous (<= Few) Urine Bacteria Few (None Seen) /HPF Urine Mucus Moderate Strands Ur Microscopic Review INDICATED Urine Culture Comments NOT INDICATED Assessment/Plan Problem List (1) SBO (small bowel obstruction): Impression: Surgery following Continue NGT until directed otherwise by surgery Plan for small bowel follow-through per surgery today I am continuing LR at 100 I have ordered hydromorphone 0.5 mg IV push every 2 hours as needed for severe pain. We will try and avoid heavy use of narcotics given his bowel obstruction. I am also placing him on scheduled Tylenol 1 g 3 times daily
[2025-02-15] MEDS ORDERED: PHENOL THROAT SPRAY 177 ML MM PRN (13:52)
--- NOTE | 2025-02-15 15:21 | PROVIDER PROGRESS NOTE ---
Assessment/Plan Problem List (1) SBO (small bowel obstruction): Assessment/Plan: HD 1 small bowel obstruction (functional versus structural) 1) FEN continue nasogastric tube decompression and await for bowel function return. Support with IV fluids. I thought the plan was to obtain a Gastrografin challenge today but apparently this was not done. 2) ID no indication of infection. 3) Wound ostomy somewhat productive. Pericolostomy hernia. Without significant symptoms I am not sure that a Sugarbaker procedure will be beneficial. 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 4) Activity `ambulate is much as possible No indication for urgent surgical intervention at this point in time. Current Meds Current Meds: Current Medications Generic Name Dose Route Start Last Admin Trade Name Freq PRN Reason Stop Dose Admin Acetaminophen 1,000 mg 02/15/25 14:00 Acetaminophen 500 Mg Tablet PO 02/18/25 13:59 TID SPENCER Enoxaparin Sodium 40 mg 02/15/25 09:00 02/15/25 08:45 Enoxaparin 40 Mg/0.4 Ml Syringe SUBQ Not Given DAILY SPENCER Hydromorphone HCl 0.5 mg 02/15/25 13:02 Hydromorphone 0.5 Mg/0.5 Ml Syringe IVP Q2H PRN Severe Pain (Level 7-10) Lactated Ringer's 1,000 mls @ 100 mls/hr 02/14/25 18:45 02/15/25 06:19 Lr IV 100 mls/hr .Q10H SPENCER Administration Phenol/Menthol 2 sprays 02/15/25 13:52 Phenol Throat [place] 177 Ml MM Q2HR PRN Throat Pain Sodium Chloride 10 ml 02/14/25 18:45 02/14/25 20:33 Sodium Chloride Flush 0.9% 10 Ml Syringe IVP 10 ml PRN PRN Administration NEEDED PER PROVIDER ORDERS Sodium Chloride 10 ml 02/15/25 01:00 02/15/25 08:42 Sodium Chloride Flush 0.9% 10 Ml Syringe IVP Not Given 0100,0900,1700 SPENCER Tamsulosin HCl 0.4 mg 02/14/25 21:00 02/15/25 08:42 Tamsulosin 0.4 Mg Capsule PO 0.4 mg BID SPENCER Administration Lab Result 02/15/25 05:40 02/15/25 05:40 Objective Vital Signs: Vital Signs - 24 hr 02/14/25 16:00 02/14/25 17:41 02/14/25 18:35 Temperature 36.5 C Temperature Source Temporal Artery Scan Pulse Rate 77 74 Pulse Rate [Brachial] 73 Respiratory Rate 20 16 16 Blood Pressure 155/88 H 150/83 H Blood Pressure [Left Brachial artery] 147/71 H Blood Pressure [Right Brachial artery] O2 Saturation 97 96 98 O2 Source Room air Room air Room air Sedation scale 0-Fully awake Pain Intensity 1 0 02/15/25 00:27 02/15/25 08:00 02/15/25 08:20 Temperature 36.7 C 36.6 C Temperature Source Temporal Artery Scan Temporal Artery Scan Pulse Rate Pulse Rate [Brachial] 70 79 Respiratory Rate 16 18 Blood Pressure Blood Pressure [Left Brachial artery] Blood Pressure [Right Brachial artery] 119/66 132/72 H O2 Saturation 97 95 O2 Source Room air Room air Sedation scale 1-Arouses easily 0-Fully awake Pain Intensity 0 Oxygen O2 Source Room air I&O (Last 24 Hrs): Intake and Output Totals x24h 02/13/25 02/14/25 02/15/25 23:59 23:59 23:59 Intake Total 977 / 977 Output Total 50 / 50 675 / 675 Balance -50 / -50 302 / 302 Results Results: Laboratory Results WBC 3.4 x10^3/uL (4.8-10.8) L 02/15/25 05:40 RBC 4.16 10^6/uL (4.70-6.10) L 02/15/25 05:40 Hgb 13.9 g/dL (14.0-18.0) L 02/15/25 05:40 Hct 40.4 % (42.0-52.0) L 02/15/25 05:40 MCV 97.1 fL (80.0-94.0) H 02/15/25 05:40 MCH 33.4 pg (27.0-31.0) H 02/15/25 05:40 MCHC 34.4 g/dL (32.0-36.0) 02/15/25 05:40 RDW 14.4 % (12.0-15.0) 02/15/25 05:40 Plt Count 143 10^3/uL (130-450) 02/15/25 05:40 MPV 9.1 fL (7.4-11.4) 02/15/25 05:40 Neut # (Auto) 2.1 10^3/uL (1.5-6.6) 02/15/25 05:40 Lymph # (Auto) 0.8 10^3/uL (1.5-3.5) L 02/15/25 05:40 [place] # (Auto) 0.4 10^3/uL (0.0-1.0) 02/15/25 05:40 Eos # (Auto) 0.1 10^3/uL (0.0-0.7) 02/15/25 05:40 Baso # (Auto) 0.0 10^3/uL (0.0-0.1) 02/15/25 05:40 Absolute Nucleated RBC 0.00 x10^3/uL 02/15/25 05:40 Nucleated RBC % 0.0 /100WBC 02/15/25 05:40 Sodium 137 mmol/L (135-145) 02/15/25 05:40 Potassium 4.3 mmol/L (3.5-4.5) 02/15/25 05:40 Chloride 105 mmol/L (101-111) 02/15/25 05:40 Carbon Dioxide 24 mmol/L (21-32) 02/15/25 05:40 Anion Gap 8.0 (6-13) 02/15/25 05:40 BUN 14 mg/dL (6-20) 02/15/25 05:40 Creatinine 1.0 mg/dL (0.6-1.3) 02/15/25 05:40 Estimated GFR (MDRD) 72 (>89) L 02/15/25 05:40 Glucose 86 mg/dL (74-104) 02/15/25 05:40 Calcium 8.7 mg/dL (8.5-10.3) 02/15/25 05:40 Total Bilirubin 1.0 mg/dL (0.2-1.0) 02/14/25 12:43 AST 21 IU/L (10-42) 02/14/25 12:43 ALT 18 IU/L (10-60) 02/14/25 12:43 Alkaline Phosphatase 98 IU/L (42-121) 02/14/25 12:43 Total Protein 8.3 g/dL (6.4-8.9) 02/14/25 12:43 Albumin 4.2 g/dL (3.2-5.5) 02/14/25 12:43 Globulin 4.1 g/dL (2.1-4.2) 02/14/25 12:43 Albumin/Globulin Ratio 1.0 (1.0-2.2) 02/14/25 12:43 Lipase < 10 U/L (11-82) L 02/14/25 12:43 Urine Color DARK YELLOW 02/14/25 12:38 Urine Clarity CLEAR (CLEAR) 02/14/25 12:38 Urine pH 5.5 PH (5.0-7.5) 02/14/25 12:38 Ur Specific [place] >=1.030 (1.002-1.030) H 02/14/25 12:38 Urine Protein 30 mg/dL (NEGATIVE) H 02/14/25 12:38 Urine Glucose (UA) NEGATIVE mg/dL (NEGATIVE) 02/14/25 12:38 Urine Ketones 40 mg/dL (NEGATIVE) H 02/14/25 12:38 Urine Occult Blood SMALL (NEGATIVE) H 02/14/25 12:38 Urine Nitrite NEGATIVE (NEGATIVE) 02/14/25 12:38 Urine Bilirubin SMALL (NEGATIVE) H 02/14/25 12:38 Urine Urobilinogen 0.2 (NORMAL) E.U./dL (NORMAL) 02/14/25 12:38 Ur Leukocyte Esterase NEGATIVE (NEGATIVE) 02/14/25 12:38 Urine RBC 0-5 /HPF (0-5) 02/14/25 12:38 Urine WBC 0-3 /HPF (0-3) 02/14/25 12:38 Ur Squamous Epith Cells RARE Squamous (<= Few) 02/14/25 12:38 Urine Bacteria Few /HPF (None Seen) 02/14/25 12:38 Urine Mucus Moderate Strands 02/14/25 12:38 Ur Microscopic Review INDICATED 02/14/25 12:38 Urine Culture Comments NOT INDICATED 02/14/25 12:38 Procedures Procedures: Procedures Excision of Sigmoid Colon, Via Natural or Artificial Opening Endoscopic, Diagnostic (06/17/21) ABX Reporting Has patient been on IV antibiotics over the past 48 hours?: No Current Medications Current Medications Current Medications: Current Medications Generic Name Dose Route Start Last Admin Trade Name Freq PRN Reason Stop Dose Admin Acetaminophen 1,000 mg 02/15/25 14:00 Acetaminophen 500 Mg Tablet PO 02/18/25 13:59 TID SPENCER Enoxaparin Sodium 40 mg 02/15/25 09:00 02/15/25 08:45 Enoxaparin 40 Mg/0.4 Ml Syringe SUBQ Not Given DAILY SPENCER Hydromorphone HCl 0.5 mg 02/15/25 13:02 Hydromorphone 0.5 Mg/0.5 Ml Syringe IVP Q2H PRN Severe Pain (Level 7-10) Lactated Ringer's 1,000 mls @ 100 mls/hr 02/14/25 18:45 02/15/25 06:19 Lr IV 100 mls/hr .Q10H SPENCER Administration Phenol/Menthol 2 sprays 02/15/25 13:52 Phenol Throat [place] 177 Ml MM Q2HR PRN Throat Pain Sodium Chloride 10 ml 02/14/25 18:45 02/14/25 20:33 Sodium Chloride Flush 0.9% 10 Ml Syringe IVP 10 ml PRN PRN Administration NEEDED PER PROVIDER ORDERS Sodium Chloride 10 ml 02/15/25 01:00 02/15/25 08:42 Sodium Chloride Flush 0.9% 10 Ml Syringe IVP Not Given 0100,0900,1700 SPENCER Tamsulosin HCl 0.4 mg 02/14/25 21:00 02/15/25 08:42 Tamsulosin 0.4 Mg Capsule PO 0.4 mg BID SPENCER Administration
[2025-02-15] MEDS: ACETAMINOPHEN 500 MG TABLET PO SCH (15:41)
[2025-02-16 06:35] LABS: BASOPHILS % (AUTO) 0.2 %; EOSINOPHILS # (AUTO) 0.2 10^3/uL (0.0-0.7); EOSINOPHILS % (AUTO) 3.6 %; HCT - HEMATOCRIT 38.6 % (42.0-52.0); LYMPHOCYTES # (AUTO) 0.7 10^3/uL (1.5-3.5); LYMPHOCYTES % (AUTO) 14.8 %; MEAN CORPUSCULAR HEMOGLOBIN 33.2 pg (27.0-31.0); MEAN CORPUSCULAR HGB CONC 33.7 g/dL (32.0-36.0); MEAN CORPUSCULAR VOLUME 98.5 fL (80.0-94.0); MEAN PLATELET VOLUME 9.1 fL (7.4-11.4); MONOCYTES # (AUTO) 0.5 10^3/uL (0.0-1.0); NEUTROPHILS # (AUTO) 3.6 10^3/uL (1.5-6.6); NEUTROPHILS % (AUTO) 71.8 %; PLT - PLATELET COUNT 157 10^3/uL (130-450); RED BLOOD COUNT 3.92 10^6/uL (4.70-6.10)
[2025-02-16 06:49] LABS: CALCIUM 8.4 mg/dL (8.5-10.3); CREATININE 0.8 mg/dL (0.6-1.3); POTASSIUM 3.3 mmol/L (3.5-4.5)
[2025-02-16] MEDS ORDERED: DIATR MEGLU/DIATRIZOATE SODIUM 120 ML BOTTLE ONE (10:48)
[2025-02-16] MEDS: DIATR MEGLU/DIATRIZOATE SODIUM 120 ML BOTTLE PO ONE (11:13)
[2025-02-16] MEDS: POTASSIUM CHLOR 10 MEQ/100 ML 10 MEQ/100 ML BAG IV SCH (11:40)
--- NOTE | 2025-02-16 13:49 | XRAY Report ---
PROCEDURE: XR SBFT Challenge Panel INDICATIONS: Small bowel obstruction COMPARISON: 02/14/[address] CONTRAST: Gastrografin contrast given FLUOROSCOPY TIME: Not applicable FINDINGS: Gastrografin contrast was given and serial images were obtained. There is mild dilatation of proximal small bowel loops, measuring up to 4 cm. A more distal small bowel loops are decompressed. Contrast is seen within the colon on the image labeled 2 hours and 15 minutes. IMPRESSION: Normal transit time through the small bowel, without complete small bowel obstruction. Mildly dilated loops of small bowel are seen proximally. Please consider partial small bowel obstruct ion. Reviewed by: Cole Gates MD on 02/16/2025 12:48 PM BEAR Approved by: Cole Gates MD on 02/16/2025 12:48 PM BEAR Station ID: [id number]
--- NOTE | 2025-02-16 14:26 | PROVIDER PROGRESS NOTE ---
Assessment/Plan Problem List (1) SBO (small bowel obstruction): Assessment/Plan: HD 2 small bowel obstruction (functionall) 1) FEN Start on liquid diet and advance. 2) ID no indication of infection. 3) Wound ostomy excessively productive as a consequence of gastrograffin. Again the "obstruction" is not structural and not due to the pericolostomy hernia. This appears on gastrograffin challenge to be more functional rather than structural. Currently there is not role for surgery. 4) Activity `ambulate is much as possible No indication for urgent surgical intervention at this point in time. CPT 19556 Current Meds Current Meds: Current Medications Generic Name Dose Route Start Last Admin Trade Name Freq PRN Reason Stop Dose Admin Acetaminophen 1,000 mg 02/15/25 14:00 02/16/25 05:51 Acetaminophen 500 Mg Tablet PO 02/18/25 13:59 Not Given TID SPENCER Enoxaparin Sodium 40 mg 02/15/25 09:00 02/16/25 08:14 Enoxaparin 40 Mg/0.4 Ml Syringe SUBQ Not Given DAILY SPENCER Hydromorphone HCl 0.5 mg 02/15/25 13:02 Hydromorphone 0.5 Mg/0.5 Ml Syringe IVP Q2H PRN Severe Pain (Level 7-10) Lactated Ringer's 1,000 mls @ 100 mls/hr 02/14/25 18:45 02/16/25 11:40 Lr IV 0 mls/hr .Q10H SPENCER Infusion Potassium Chloride 10 meq in 100 mls @ 100 mls/hr 02/16/25 11:00 02/16/25 12:52 Potassium Chloride IV 02/16/25 14:59 100 mls/hr Q1H SPENCER Administration Phenol/Menthol 2 sprays 02/15/25 13:52 Phenol Throat [place] 177 Ml MM Q2HR PRN Throat Pain Sodium Chloride 10 ml 02/14/25 18:45 02/14/25 20:33 Sodium Chloride Flush 0.9% 10 Ml Syringe IVP 10 ml PRN PRN Administration NEEDED PER PROVIDER ORDERS Sodium Chloride 10 ml 02/15/25 01:00 02/16/25 08:14 Sodium Chloride Flush 0.9% 10 Ml Syringe IVP Not Given 0100,0900,1700 SPENCER Tamsulosin HCl 0.4 mg 02/14/25 21:00 02/16/25 08:12 Tamsulosin 0.4 Mg Capsule PO 0.4 mg BID SPENCER Administration Lab Result 02/16/25 06:00 02/16/25 06:00 Subjective Subjective Patient Reports: Feeling Better, Resting Comfortably and No Complaints Objective Vital Signs: Vital Signs - 24 hr 02/15/25 15:40 02/15/25 15:41 02/15/25 16:00 Temperature 36.5 C Temperature Source Temporal Artery Scan Pulse Rate [Brachial] 78 Respiratory Rate 18 Blood Pressure [Left Brachial artery] Blood Pressure [Right Brachial artery] 141/76 H O2 Saturation 96 O2 Source Room air Sedation scale 0-Fully awake Pain Intensity 0 0 Pain Intensity [back] 2 Pain Intensity [throat] 02/15/25 21:05 02/16/25 00:13 02/16/25 05:51 Temperature 36.5 C Temperature Source Temporal Artery Scan Pulse Rate [Brachial] 79 Respiratory Rate 16 Blood Pressure [Left Brachial artery] 126/64 Blood Pressure [Right Brachial artery] O2 Saturation 97 O2 Source Room air Sedation scale 1-Arouses easily Pain Intensity 0 0 0 Pain Intensity [back] Pain Intensity [throat] 02/16/25 07:26 02/16/25 07:36 Temperature 36.6 C Temperature Source Temporal Artery Scan Pulse Rate [Brachial] 80 Respiratory Rate 18 Blood Pressure [Left Brachial artery] Blood Pressure [Right Brachial artery] 130/66 O2 Saturation 97 O2 Source Room air Sedation scale 0-Fully awake Pain Intensity Pain Intensity [back] Pain Intensity [throat] 1 Oxygen O2 Source Room air I&O (Last 24 Hrs): Intake and Output Totals x24h 02/14/25 02/15/25 02/16/25 23:59 23:59 23:59 Intake Total 2509 / 2509 1471 / 1471 Output Total 50 / 50 1575 / 1575 1050 / 1050 Balance -50 / -50 934 / 934 421 / 421 Abdomen: Normal bowel sounds, Soft and No tenderness Results Results: Laboratory Results WBC 5.0 x10^3/uL (4.8-10.8) 02/16/25 06:00 RBC 3.92 10^6/uL (4.70-6.10) L 02/16/25 06:00 Hgb 13.0 g/dL (14.0-18.0) L 02/16/25 06:00 Hct 38.6 % (42.0-52.0) L 02/16/25 06:00 MCV 98.5 fL (80.0-94.0) H 02/16/25 06:00 MCH 33.2 pg (27.0-31.0) H 02/16/25 06:00 MCHC 33.7 g/dL (32.0-36.0) 02/16/25 06:00 RDW 14.0 % (12.0-15.0) 02/16/25 06:00 Plt Count 157 10^3/uL (130-450) 02/16/25 06:00 MPV 9.1 fL (7.4-11.4) 02/16/25 06:00 Neut # (Auto) 3.6 10^3/uL (1.5-6.6) 02/16/25 06:00 Lymph # (Auto) 0.7 10^3/uL (1.5-3.5) L 02/16/25 06:00 [place] # (Auto) 0.5 10^3/uL (0.0-1.0) 02/16/25 06:00 Eos # (Auto) 0.2 10^3/uL (0.0-0.7) 02/16/25 06:00 Baso # (Auto) 0.0 10^3/uL (0.0-0.1) 02/16/25 06:00 Absolute Nucleated RBC 0.00 x10^3/uL 02/16/25 06:00 Nucleated RBC % 0.0 /100WBC 02/16/25 06:00 Sodium 136 mmol/L (135-145) 02/16/25 06:00 Potassium 3.3 mmol/L (3.5-4.5) L 02/16/25 06:00 Chloride 107 mmol/L (101-111) 02/16/25 06:00 Carbon Dioxide 16 mmol/L (21-32) L 02/16/25 06:00 Anion Gap 13.0 (6-13) 02/16/25 06:00 BUN 11 mg/dL (6-20) 02/16/25 06:00 Creatinine 0.8 mg/dL (0.6-1.3) 02/16/25 06:00 Estimated GFR (MDRD) 94 (>89) 02/16/25 06:00 Glucose 66 mg/dL (74-104) L 02/16/25 06:00 Calcium 8.4 mg/dL (8.5-10.3) L 02/16/25 06:00 Total Bilirubin 1.0 mg/dL (0.2-1.0) 02/14/25 12:43 AST 21 IU/L (10-42) 02/14/25 12:43 ALT 18 IU/L (10-60) 02/14/25 12:43 Alkaline Phosphatase 98 IU/L (42-121) 02/14/25 12:43 Total Protein 8.3 g/dL (6.4-8.9) 02/14/25 12:43 Albumin 4.2 g/dL (3.2-5.5) 02/14/25 12:43 Globulin 4.1 g/dL (2.1-4.2) 02/14/25 12:43 Albumin/Globulin Ratio 1.0 (1.0-2.2) 02/14/25 12:43 Lipase < 10 U/L (11-82) L 02/14/25 12:43 Urine Color DARK YELLOW 02/14/25 12:38 Urine Clarity CLEAR (CLEAR) 02/14/25 12:38 Urine pH 5.5 PH (5.0-7.5) 02/14/25 12:38 Ur Specific [place] >=1.030 (1.002-1.030) H 02/14/25 12:38 Urine Protein 30 mg/dL (NEGATIVE) H 02/14/25 12:38 Urine Glucose (UA) NEGATIVE mg/dL (NEGATIVE) 02/14/25 12:38 Urine Ketones 40 mg/dL (NEGATIVE) H 02/14/25 12:38 Urine Occult Blood SMALL (NEGATIVE) H 02/14/25 12:38 Urine Nitrite NEGATIVE (NEGATIVE) 02/14/25 12:38 Urine Bilirubin SMALL (NEGATIVE) H 02/14/25 12:38 Urine Urobilinogen 0.2 (NORMAL) E.U./dL (NORMAL) 02/14/25 12:38 Ur Leukocyte Esterase NEGATIVE (NEGATIVE) 02/14/25 12:38 Urine RBC 0-5 /HPF (0-5) 02/14/25 12:38 Urine WBC 0-3 /HPF (0-3) 02/14/25 12:38 Ur Squamous Epith Cells RARE Squamous (<= Few) 02/14/25 12:38 Urine Bacteria Few /HPF (None Seen) 02/14/25 12:38 Urine Mucus Moderate Strands 02/14/25 12:38 Ur Microscopic Review INDICATED 02/14/25 12:38 Urine Culture Comments NOT INDICATED 02/14/25 12:38 Procedures Procedures: Procedures Excision of Sigmoid Colon, Via Natural or Artificial Opening Endoscopic, Diagnostic (06/17/21) Current Medications Current Medications Current Medications: Current Medications Generic Name Dose Route Start Last Admin Trade Name Freq PRN Reason Stop Dose Admin Acetaminophen 1,000 mg 02/15/25 14:00 02/16/25 05:51 Acetaminophen 500 Mg Tablet PO 02/18/25 13:59 Not Given TID SPENCER Enoxaparin Sodium 40 mg 02/15/25 09:00 02/16/25 08:14 Enoxaparin 40 Mg/0.4 Ml Syringe SUBQ Not Given DAILY SPENCER Hydromorphone HCl 0.5 mg 02/15/25 13:02 Hydromorphone 0.5 Mg/0.5 Ml Syringe IVP Q2H PRN Severe Pain (Level 7-10) Lactated Ringer's 1,000 mls @ 100 mls/hr 02/14/25 18:45 02/16/25 11:40 Lr IV 0 mls/hr .Q10H SPENCER Infusion Potassium Chloride 10 meq in 100 mls @ 100 mls/hr 02/16/25 11:00 02/16/25 12:52 Potassium Chloride IV 02/16/25 14:59 100 mls/hr Q1H SPENCER Administration Phenol/Menthol 2 sprays 02/15/25 13:52 Phenol Throat [place] 177 Ml MM Q2HR PRN Throat Pain Sodium Chloride 10 ml 02/14/25 18:45 02/14/25 20:33 Sodium Chloride Flush 0.9% 10 Ml Syringe IVP 10 ml PRN PRN Administration NEEDED PER PROVIDER ORDERS Sodium Chloride 10 ml 02/15/25 01:00 02/16/25 08:14 Sodium Chloride Flush 0.9% 10 Ml Syringe IVP Not Given 0100,0900,1700 SPENCER Tamsulosin HCl 0.4 mg 02/14/25 21:00 02/16/25 08:12 Tamsulosin 0.4 Mg Capsule PO 0.4 mg BID SPENCER Administration Miscellaneous Provider Note - Note: Patient has had to empty colostomy bag numerous times today due to gastrograffin SBFT.
--- NOTE | 2025-02-16 16:26 | PROVIDER PROGRESS NOTE ---
Subjective Prog Note Date Prog Note Date: 02/16/25 Subjective Pt reports feeling: Improved Current Medications Current Medications Current Medications: Current Medications Generic Name Dose Route Start Last Admin Trade Name Freq PRN Reason Stop Dose Admin Acetaminophen 1,000 mg 02/15/25 14:00 02/16/25 14:40 Acetaminophen 500 Mg Tablet PO 02/18/25 13:59 1,000 mg TID SPENCER Administration Enoxaparin Sodium 40 mg 02/15/25 09:00 02/16/25 08:14 Enoxaparin 40 Mg/0.4 Ml Syringe SUBQ Not Given DAILY SPENCER Hydromorphone HCl 0.5 mg 02/15/25 13:02 Hydromorphone 0.5 Mg/0.5 Ml Syringe IVP Q2H PRN Severe Pain (Level 7-10) Phenol/Menthol 2 sprays 02/15/25 13:52 Phenol Throat [place] 177 Ml MM Q2HR PRN Throat Pain Sodium Chloride 10 ml 02/14/25 18:45 02/14/25 20:33 Sodium Chloride Flush 0.9% 10 Ml Syringe IVP 10 ml PRN PRN Administration NEEDED PER PROVIDER ORDERS Sodium Chloride 10 ml 02/15/25 01:00 02/16/25 15:59 Sodium Chloride Flush 0.9% 10 Ml Syringe IVP 10 ml 0100,0900,1700 SPENCER Administration Tamsulosin HCl 0.4 mg 02/14/25 21:00 02/16/25 08:12 Tamsulosin 0.4 Mg Capsule PO 0.4 mg BID SPENCER Administration Objective Vital Signs/Intake & Output Reviewed Vital Signs: Yes Vital Signs: Vital Signs x48h Temp Pulse Resp BP Pulse Ox 02/16/25 15:53 36.7 C 77 24 149/71 H 97 Intake & Output: Intake & Output 02/13/25 02/14/25 02/15/25 02/16/25 23:59 23:59 23:59 23:59 Intake Total 2509 / 2509 1671 / 1671 Output Total 50 / 50 1575 / 1575 1325 / 1325 Balance -50 / -50 934 / 934 346 / 346 Weight (kg) 85 kg Objective General Appearance: positive No acute distress and Alert Eyes Bilateral: positive Normal inspection and PERRL ENT: positive ENT inspection nml and Pharynx nml Neck: positive Nml inspection and Thyroid nml Respiratory: positive Chest non-tender and No respiratory distress Cardiovascular: positive Regular rate & rhythm Abdomen: positive Non-tender; negative No distention (Mild distention) Back: positive Nml inspection Skin: positive Color nml Extremities: positive Non-tender Neurologic/Psychiatric: positive Oriented x3 Lab Results 02/16/25 06:00 02/16/25 06:00 Other Labs: Lab Results x24hrs 02/16/25 Range/Units 06:00 WBC 5.0 (4.8-10.8) x10^3/uL RBC 3.92 L (4.70-6.10) 10^6/uL Hgb 13.0 L (14.0-18.0) g/dL Hct 38.6 L (42.0-52.0) % MCV 98.5 H (80.0-94.0) fL MCH 33.2 H (27.0-31.0) pg MCHC 33.7 (32.0-36.0) g/dL RDW 14.0 (12.0-15.0) % Plt Count 157 (130-450) 10^3/uL MPV 9.1 (7.4-11.4) fL Neut # (Auto) 3.6 (1.5-6.6) 10^3/uL Lymph # (Auto) 0.7 L (1.5-3.5) 10^3/uL [place] # (Auto) 0.5 (0.0-1.0) 10^3/uL Eos # (Auto) 0.2 (0.0-0.7) 10^3/uL Baso # (Auto) 0.0 (0.0-0.1) 10^3/uL Absolute Nucleated RBC 0.00 x10^3/uL Nucleated RBC % 0.0 /100WBC Sodium 136 (135-145) mmol/L Potassium 3.3 L (3.5-4.5) mmol/L Chloride 107 (101-111) mmol/L Carbon Dioxide 16 L (21-32) mmol/L Anion Gap 13.0 (6-13) BUN 11 (6-20) mg/dL Creatinine 0.8 (0.6-1.3) mg/dL Estimated GFR (MDRD) 94 (>89) Glucose 66 L (74-104) mg/dL Calcium 8.4 L (8.5-10.3) mg/dL Assessment/Plan Problem List (1) SBO (small bowel obstruction): Impression: Performed small bowel follow-through with passage of dye into the large intestine. Radiology reports possible partial small bowel obstruction Discussed case [id number] with surgery, they are signing off at this time. Okay to DC NGT, trial diet Full liquid diet tonight Regular diet in a.m. I am discontinuing his LR His pain is somewhat improved
[2025-02-16] MEDS: ACETAMINOPHEN 500 MG TABLET PO SCH (16:38)
[2025-02-16] MEDS: MAG HYDROX/AL HYDROX/SIMETH 30 ML UDC PO PRN (18:21)
[2025-02-16] MEDS: PANTOPRAZOLE 40 MG TABLET PO SCH (20:39)
[2025-02-17 05:21] LABS: EOSINOPHILS # (AUTO) 0.2 10^3/uL (0.0-0.7); EOSINOPHILS % (AUTO) 5.2 %; HCT - HEMATOCRIT 35.8 % (42.0-52.0); HGB - HEMOGLOBIN 12.3 g/dL (14.0-18.0); LYMPHOCYTES # (AUTO) 0.7 10^3/uL (1.5-3.5); LYMPHOCYTES % (AUTO) 15.2 %; MEAN CORPUSCULAR HEMOGLOBIN 33.4 pg (27.0-31.0); MEAN CORPUSCULAR HGB CONC 34.4 g/dL (32.0-36.0); MEAN CORPUSCULAR VOLUME 97.3 fL (80.0-94.0); MONOCYTES # (AUTO) 0.5 10^3/uL (0.0-1.0); MONOCYTES % (AUTO) 10.6 %; NEUTROPHILS % (AUTO) 68.5 %; PLT - PLATELET COUNT 161 10^3/uL (130-450); RED BLOOD COUNT 3.68 10^6/uL (4.70-6.10); RED CELL DISTRIBUTION WIDTH 13.8 % (12.0-15.0); WHITE BLOOD COUNT 4.4 x10^3/uL (4.8-10.8)
[2025-02-17 05:47] LABS: CALCIUM 8.4 mg/dL (8.5-10.3); CREATININE 0.8 mg/dL (0.6-1.3); POTASSIUM 3.4 mmol/L (3.5-4.5)
[2025-02-17 07:37] VITALS: BP 137/69; TEMP 98.4; O2SAT 97
--- NOTE | 2025-02-17 10:40 | PROVIDER PROGRESS NOTE ---
Assessment/Plan Problem List (1) SBO (small bowel obstruction): Assessment/Plan: Resolved and etiology does not appear to be surgical. Will sign off of his care. Call us with any further questions and/or surgical concerns. I really appreciate the opportunity to reconnect with this wonderful patient and his son and participate in his care CPT 61501. Current Meds Current Meds: Current Medications Generic Name Dose Route Start Last Admin Trade Name Freq PRN Reason Stop Dose Admin Acetaminophen 1,000 mg 02/16/25 16:30 02/17/25 08:05 Acetaminophen 500 Mg Tablet PO 1,000 mg TID SPENCER Administration Al Hydroxide/Mg Hydroxide 30 ml 02/16/25 17:53 02/16/25 18:21 Mag Hydrox/Al Hydrox/Simeth 30 Ml Udc PO 30 ml Q4HR PRN Administration INDIGESTION Enoxaparin Sodium 40 mg 02/15/25 09:00 02/17/25 08:13 Enoxaparin 40 Mg/0.4 Ml Syringe SUBQ Not Given DAILY SPENCER Hydromorphone HCl 0.5 mg 02/15/25 13:02 Hydromorphone 0.5 Mg/0.5 Ml Syringe IVP Q2H PRN Severe Pain (Level 7-10) Pantoprazole Sodium 40 mg 02/16/25 21:00 02/17/25 08:06 Pantoprazole 40 Mg Tablet PO 40 mg BID SPENCER Administration Phenol/Menthol 2 sprays 02/15/25 13:52 Phenol Throat [place] 177 Ml MM Q2HR PRN Throat Pain Potassium Chloride 40 meq 02/17/25 10:22 Potassium Chloride 20 Meq Tablet PO 02/17/25 10:23 ONCE ONE Sodium Chloride 10 ml 02/14/25 18:45 02/14/25 20:33 Sodium Chloride Flush 0.9% 10 Ml Syringe IVP 10 ml PRN PRN Administration NEEDED PER PROVIDER ORDERS Sodium Chloride 10 ml 02/15/25 01:00 02/17/25 09:35 Sodium Chloride Flush 0.9% 10 Ml Syringe IVP 10 ml 0100,0900,1700 SPENCER Administration Tamsulosin HCl 0.4 mg 02/14/25 21:00 02/17/25 08:06 Tamsulosin 0.4 Mg Capsule PO 0.4 mg BID SPENCER Administration Lab Result 02/17/25 05:10 02/17/25 05:10 Subjective Subjective Patient Reports: Feeling Better, Resting Comfortably and No Complaints Objective Vital Signs: Vital Signs - 24 hr 02/16/25 14:40 02/16/25 15:53 02/16/25 16:38 Temperature 36.7 C Temperature Source Temporal Artery Scan Pulse Rate [Brachial] 77 Respiratory Rate 24 Blood Pressure [Right Brachial artery] 149/71 H O2 Saturation 97 O2 Source Room air Sedation scale 0-Fully awake Pain Intensity 3 0 2 02/16/25 23:35 02/17/25 00:17 02/17/25 07:35 Temperature 36.7 C 36.9 C Temperature Source Temporal Artery Scan Temporal Artery Scan Pulse Rate [Brachial] 69 74 Respiratory Rate 20 18 Blood Pressure [Right Brachial artery] 121/62 137/69 H O2 Saturation 96 97 O2 Source Room air Room air Sedation scale 0-Fully awake 0-Fully awake Pain Intensity 0 02/17/25 08:05 Temperature Temperature Source Pulse Rate [Brachial] Respiratory Rate Blood Pressure [Right Brachial artery] O2 Saturation O2 Source Sedation scale Pain Intensity 0 Oxygen O2 Source Room air I&O (Last 24 Hrs): Intake and Output Totals x24h 02/15/25 02/16/25 02/17/25 23:59 23:59 23:59 Intake Total 2509 / 2509 2771 / 2771 1820 / 1820 Output Total 1575 / 1575 1875 / 1875 420 / 420 Balance 934 / 934 896 / 896 1400 / 1400 General: Alert, Oriented x3, Cooperative and No acute distress Abdomen: Normal bowel sounds, Soft, No tenderness and Other (Ostomy is productive of gas and stool.) Results Results: Laboratory Results WBC 4.4 x10^3/uL (4.8-10.8) L 02/17/25 05:10 RBC 3.68 10^6/uL (4.70-6.10) L 02/17/25 05:10 Hgb 12.3 g/dL (14.0-18.0) L 02/17/25 05:10 Hct 35.8 % (42.0-52.0) L 02/17/25 05:10 MCV 97.3 fL (80.0-94.0) H 02/17/25 05:10 MCH 33.4 pg (27.0-31.0) H 02/17/25 05:10 MCHC 34.4 g/dL (32.0-36.0) 02/17/25 05:10 RDW 13.8 % (12.0-15.0) 02/17/25 05:10 Plt Count 161 10^3/uL (130-450) 02/17/25 05:10 MPV 9.0 fL (7.4-11.4) 02/17/25 05:10 Neut # (Auto) 3.0 10^3/uL (1.5-6.6) 02/17/25 05:10 Lymph # (Auto) 0.7 10^3/uL (1.5-3.5) L 02/17/25 05:10 [place] # (Auto) 0.5 10^3/uL (0.0-1.0) 02/17/25 05:10 Eos # (Auto) 0.2 10^3/uL (0.0-0.7) 02/17/25 05:10 Baso # (Auto) 0.0 10^3/uL (0.0-0.1) 02/17/25 05:10 Absolute Nucleated RBC 0.00 x10^3/uL 02/17/25 05:10 Nucleated RBC % 0.0 /100WBC 02/17/25 05:10 Sodium 137 mmol/L (135-145) 02/17/25 05:10 Potassium 3.4 mmol/L (3.5-4.5) L 02/17/25 05:10 Chloride 111 mmol/L (101-111) 02/17/25 05:10 Carbon Dioxide 19 mmol/L (21-32) L 02/17/25 05:10 Anion Gap 7.0 (6-13) 02/17/25 05:10 BUN 7 mg/dL (6-20) 02/17/25 05:10 Creatinine 0.8 mg/dL (0.6-1.3) 02/17/25 05:10 Estimated GFR (MDRD) 94 (>89) 02/17/25 05:10 Glucose 89 mg/dL (74-104) 02/17/25 05:10 Calcium 8.4 mg/dL (8.5-10.3) L 02/17/25 05:10 Total Bilirubin 1.0 mg/dL (0.2-1.0) 02/14/25 12:43 AST 21 IU/L (10-42) 02/14/25 12:43 ALT 18 IU/L (10-60) 02/14/25 12:43 Alkaline Phosphatase 98 IU/L (42-121) 02/14/25 12:43 Total Protein 8.3 g/dL (6.4-8.9) 02/14/25 12:43 Albumin 4.2 g/dL (3.2-5.5) 02/14/25 12:43 Globulin 4.1 g/dL (2.1-4.2) 02/14/25 12:43 Albumin/Globulin Ratio 1.0 (1.0-2.2) 02/14/25 12:43 Lipase < 10 U/L (11-82) L 02/14/25 12:43 Urine Color DARK YELLOW 02/14/25 12:38 Urine Clarity CLEAR (CLEAR) 02/14/25 12:38 Urine pH 5.5 PH (5.0-7.5) 02/14/25 12:38 Ur Specific [place] >=1.030 (1.002-1.030) H 02/14/25 12:38 Urine Protein 30 mg/dL (NEGATIVE) H 02/14/25 12:38 Urine Glucose (UA) NEGATIVE mg/dL (NEGATIVE) 02/14/25 12:38 Urine Ketones 40 mg/dL (NEGATIVE) H 02/14/25 12:38 Urine Occult Blood SMALL (NEGATIVE) H 02/14/25 12:38 Urine Nitrite NEGATIVE (NEGATIVE) 02/14/25 12:38 Urine Bilirubin SMALL (NEGATIVE) H 02/14/25 12:38 Urine Urobilinogen 0.2 (NORMAL) E.U./dL (NORMAL) 02/14/25 12:38 Ur Leukocyte Esterase NEGATIVE (NEGATIVE) 02/14/25 12:38 Urine RBC 0-5 /HPF (0-5) 02/14/25 12:38 Urine WBC 0-3 /HPF (0-3) 02/14/25 12:38 Ur Squamous Epith Cells RARE Squamous (<= Few) 02/14/25 12:38 Urine Bacteria Few /HPF (None Seen) 02/14/25 12:38 Urine Mucus Moderate Strands 02/14/25 12:38 Ur Microscopic Review INDICATED 02/14/25 12:38 Urine Culture Comments NOT INDICATED 02/14/25 12:38 Procedures Procedures: Procedures Excision of Sigmoid Colon, Via Natural or Artificial Opening Endoscopic, Diagnostic (06/17/21) Current Medications Current Medications Current Medications: Current Medications Generic Name Dose Route Start Last Admin Trade Name Freq PRN Reason Stop Dose Admin Acetaminophen 1,000 mg 02/16/25 16:30 02/17/25 08:05 Acetaminophen 500 Mg Tablet PO 1,000 mg TID SPENCER Administration Al Hydroxide/Mg Hydroxide 30 ml 02/16/25 17:53 02/16/25 18:21 Mag Hydrox/Al Hydrox/Simeth 30 Ml Udc PO 30 ml Q4HR PRN Administration INDIGESTION Enoxaparin Sodium 40 mg 02/15/25 09:00 02/17/25 08:13 Enoxaparin 40 Mg/0.4 Ml Syringe SUBQ Not Given DAILY SPENCER Hydromorphone HCl 0.5 mg 02/15/25 13:02 Hydromorphone 0.5 Mg/0.5 Ml Syringe IVP Q2H PRN Severe Pain (Level 7-10) Pantoprazole Sodium 40 mg 02/16/25 21:00 02/17/25 08:06 Pantoprazole 40 Mg Tablet PO 40 mg BID SPENCER Administration Phenol/Menthol 2 sprays 02/15/25 13:52 Phenol Throat [place] 177 Ml MM Q2HR PRN Throat Pain Potassium Chloride 40 meq 02/17/25 10:22 Potassium Chloride 20 Meq Tablet PO 02/17/25 10:23 ONCE ONE Sodium Chloride 10 ml 02/14/25 18:45 02/14/25 20:33 Sodium Chloride Flush 0.9% 10 Ml Syringe IVP 10 ml PRN PRN Administration NEEDED PER PROVIDER ORDERS Sodium Chloride 10 ml 02/15/25 01:00 02/17/25 09:35 Sodium Chloride Flush 0.9% 10 Ml Syringe IVP 10 ml 0100,0900,1700 SPENCER Administration Tamsulosin HCl 0.4 mg 02/14/25 21:00 02/17/25 08:06 Tamsulosin 0.4 Mg Capsule PO 0.4 mg BID SPENCER Administration
[2025-02-17] MEDS: POTASSIUM CHLORIDE 20 MEQ TABLET PO ONE (10:53)
--- NOTE | 2025-02-17 11:59 | Discharge Summary ---
Discharge Summary Admit Date: 02/14/25 Discharge Date: 02/17/25 Discharging Provider: Norm Morrison NP Primary Care Provider: Previously Carlos Doss, changing to new PCP Code Status: Attempt Resuscitation DIAGNOSES Admission Diagnoses: Small bowel obstruction Discharge Diagnoses with Status of Each Condition: Small bowel obstructionimproved after bowel rest and Gastrografin study HPI History of Present Illness: 79-year-old male PMH significant for colon cancer with mets to lung who is status post colectomy/colostomy, parastomal hernia who presents to the ED with gradually worsening nausea, vomiting, abdominal pain. He reports reduced output in his colostomy. He denies fever, chills, chest pain, dyspnea. In the ER, CT abdomen/pelvis was performed which showed moderate grade distal small bowel obstruction, possible low-grade enteritis. General surgery was contacted by ER physician, and decision was made to admit to medicine with surgical consult HOSPITAL COURSE Hospital Course: Patient was held in the hospital with NG tube for bowel rest. Gastrografin study was performed which showed passage of dye into the large intestine. During the Gastrografin study, he had a large amount of stool output and resolution of his symptoms. Today, he is able to tolerate regular diet, so he is being discharged home and recommended to follow-up with primary care ALLERGIES Allergies Allergy/AdvReac Type Severity Reaction Status Date / Time hydrocodone AdvReac nausea Verified 02/14/25 12:20 Chemo Allergy Unknown Uncoded 02/14/25 12:20 MEDICATIONS Ambulatory Orders Medication Instructions Recorded Confirmed ferrous gluconate 324 mg (38 mg 324 mg PO DAILYWM #30 tabs 10/22/21 02/15/25 iron) tablet [id number]-[id number] 1 tab PO DAILYWM #30 tabs 10/22/21 02/15/25 fumarate 19 mg-folic acid 400 mcg tablet (Therapeutic-M) acetaminophen 500 mg tablet (Pain 500 - 1,000 mg PO Q8HR PRN Pain 07/12/22 02/15/25 Relief Extra Strength (acetaminophen)) potassium chloride 10 mEq 20 meq PO DAILY 07/12/22 02/15/25 capsule,extended release glucosamine sulf dipot 1 ea PO BID 01/20/23 02/15/25 chlr,msm,chond 550 mg-C 30 mg-patrick 1 mg capsule (Glucosamine Chondroitin) mecobalamin (vitamin B12) 1,000 1,000 mcg PO DAILY 01/03/24 02/15/25 mcg chewable tablet (B12 Active) metoclopramide HCl 10 mg tablet 10 mg PO QID PRN nausea and 12/10/24 02/15/25 (Reglan) vomiting esomeprazole magnesium 40 mg 40 mg PO QDAY #90 caps 02/04/25 02/15/25 capsule,delayed release (Nexium) tamsulosin 0.4 mg capsule 0.4 mg PO BID 3 months #180 caps 02/04/25 02/15/25 PHYSICAL EXAM AT DISCHARGE General Appearance: positive No acute distress and Alert Eyes Bilateral: positive Normal inspection and PERRL ENT: positive ENT inspection nml Neck: positive Nml inspection Respiratory: positive Chest non-tender Cardiovascular: positive Regular rate & rhythm Peripheral Pulses: positive 2+ Abdomen: positive Non-tender and Other (Colostomy with good output) Skin: positive Color nml Extremities: positive Non-tender Neurologic/Psychiatric: positive Oriented x3 LABS 02/17/25 05:10 02/17/25 05:10 FOLLOW UP Follow Up: With PCP TIME SPENT Time Spent in Discharge (Minutes): 35 Discharge Plan Discharge Patient Disposition: Home, Self Care Condition: Fair Medically Cleared Date:: 02/17/25 Prescriptions: Continued tamsulosin 0.4 mg capsule 0.4 mg PO BID 90 Days Qty: 180 0RF esomeprazole magnesium [Nexium] 40 mg capsule,delayed release(DR/EC) 40 mg PO QDAY Qty: 90 3RF ferrous gluconate 324 MG tablet 324 mg PO DAILYWM Qty: 30 0RF Therapeutic-M 1 TAB tablet 1 tab PO DAILYWM Qty: 30 0RF potassium chloride 10 MEQ capsule, extended release 20 meq PO DAILY acetaminophen [Pain Relief ES (acetaminophen)] 500 MG tablet 500 - 1,000 mg PO Q8HR PRN (Reason: Pain) Glucosamine Chondroitin 1 EACH capsule 1 ea PO BID mecobalamin (vitamin B12) [B12 Active] 1,000 MCG tablet,chewable 1,000 mcg PO DAILY metoclopramide HCl [Reglan] 10 mg tablet 10 mg PO QID PRN (Reason: nausea and vomiting) Activity Restrictions: No Restrictions Diet: Regular Health Concerns: You came into the hospital because you had a small bowel obstruction. We held you in the hospital to promote bowel rest, and then we did a small bowel follow- through which proved that you do have passage of stool into the large intestine. Today, you are able to eat food without any discomfort and you are still having good output into your colostomy. I am discharging you home, and I recommend that you follow-up with your primary care provider. Please stay as active as possible, and eat a regular diet. I am making no changes to your medication regimen Print Language: Wolof Patient Instructions: Obstruction Sm Bowel Stand Alone Forms: PCP List
== END 2025-02-17 13:26 | disposition home or self-care (01) | DRG 390 ==
LOC: ED 12:03 → MS2 17:54
PROVIDERS: ADMIT Nurse Practitioner Acute Care; ATTEND Nurse Practitioner Acute Care
DX: Z85.038 Personal history of other malignant neoplasm of large intestine; K21.9 Gastro-esophageal reflux disease without esophagitis; Z90.2 Acquired absence of lung [part of]; Z85.048 Personal history of other malignant neoplasm of rectum, rectosigmoid junction, and anus; K43.5 Parastomal hernia without obstruction or gangrene; K59.00 Constipation, unspecified; Z90.49 Acquired absence of other specified parts of digestive tract; Z85.118 Personal history of other malignant neoplasm of bronchus and lung; Z93.3 Colostomy status; K56.609 Unspecified intestinal obstruction, unspecified as to partial versus complete obstruction